=== PATIENT | female | born 1995 | race Caucasian/White ===

== ENCOUNTER 2020-06-14 14:46 | Emergency (ER) | payer OTHER, SELFPAY ==
--- NOTE | 2020-06-14 15:47 | ED_ITS ---
HPI - URI/Sore Throat General Chief Complaint: Medical Clearance Stated Complaint: sore throat Time Seen by Provider: 06/14/20 15:29 Source: patient Mode of arrival: ambulatory Limitations: no limitations History of Present Illness HPI Narrative: Sore throat day MD elicited complaint: nasal congestion Relieving factors: NSAID, lozenge and gargling Related Data Previous Rx's Medication Instructions Recorded azithromycin [Zithromax Z-Trevor] 250 mg PO DAILY 5 Days #5 tab 06/14/20 Allergies Allergy/AdvReac Type Severity Reaction Status Date / Time amoxicillin [AMOXICILLIN] Allergy Unknown UNKNOWN Unverified 05/28/20 18:48 Review of Systems Review of Systems: Constitutional: No Weight loss, No Fever, No Chills, No Night Sweats, No Fatigue, No Malaise ENT/Mouth: No Hearing loss, No Ear Pain, + Nasal Congestion, No Sinus Pain, No Hoarseness, + sore throat, + Rhinorrhea, No Swallowing Difficulty Eyes: No Eye Pain, No Swelling, No Redness, No Foreign Body, No Discharge, No Vision Changes Cardiovascular: No Chest Pain, No SOB, No Dyspnea on Exertion, No Orthopnea, No Edema, No Palpitations Respiratory: No Cough, No Sputum, No Wheezing, No Smoke Exposure, No Dyspnea Gastrointestinal: No Nausea, No Vomiting, No Diarrhea, No Constipation, No abdominal Pain, No Hematochezia, No Melena Genitourinary: no irregular bleeding, No Dysuria, No Urinary Frequency, No Hemat uria, No Urinary Incontinence, No Urgency, No Flank Pain, No Urinary Flow Changes, No Hesitancy Musculoskeletal: No joint pain, No Myalgias, No Joint Swelling Skin: No Skin Lesions, No rash Neuro: No Weakness, No Numbness, No Paresthesias, No Loss of Consciousness, No Dizziness, No Headache Psych: No Anxiety/Panic, No Depression, No SI/HI/AH/VH, No Social Issues, Heme/Lymph: No Bruising, No Bleeding,No Lymphadenopathy Endocrine: No Polyuria, No Polydipsia, No Temperature Intolerance Yes all other systems are reviewed and are negative [facility] Past Medical History Medical History (Updated 06/14/20 @ 15:54 by Shana Amaro) Anemia Anxiety HTN (hypertension) Social History Social History Advance Directives: No Advance Directives Information Provided: No Physical Exam Const: General: cooperative and healthy appearing; No acute distress or intoxicated appearing Nutritional Appearance: average body habitus Orientation/consciousness: patient oriented x3 HENMT: Head: Yes normal to inspection Ears: hearing grossly normal bilaterally Mouth: no drooling and malodorous breath Throat: No peritonsillar mass, Yes posterior oropharynx abnormal ( erythema diffuse, exudate. no evidence of GATE MANAGER, tonsils 2+), Yes postnasal drainage and No uvular edema Eyes: General: appearance normal, both eyes and all related structures Visual Andrade: normal visual andrade by confrontation Neck: Neck: Yes normal visual inspection, No positive Brudzinski's sign, No positive Kernig's sign and No tender Thyroid: Thyroid normal Chest: Chest palpation & inspection: normal inspection of the chest Resp: Effort & Inspection: normal respiratory effort Cardio: Jugular venous distension: no JVD GI: Inspection: Yes normal to inspection Percussion: Yes normal to percussion Auscultation: normal bowel sounds : General: Yes no CVA tenderness Back/Spine/Pelvis: Back: no CVA tenderness Skin: General skin exam: no rashes or lesions noted Neuro: General: patient oriented x3 Course Course Hospital Course: exam consistent with pharyngitis will treat empirically for strep. Allergy to penicillin. Will also test for COVID-19 per request. Stable for discharge. MDM - URI/Sore Throat Differential Diagnosis Differential diagnosis: Likely upper respiratory infection, viral infection and pharyngitis; Unlikely croup, otitis media, sinusitis, bronchitis and influenza Discharge Plan Discharge Clinical Impression: Pharyngitis Qualifiers: Pharyngitis/tonsillitis etiology: streptococcus Qualified Code(s): J02.0 - Streptococcal pharyngitis Patient Disposition: Home, Self-Care Instructions: Pharyngitis (ED) Additional Instructions: Based on your symptoms and history we have sent a COVID-19. Although your RESULT IS PENDING at this time. RESULTS should return within 72 hours. At this time you will be contacted with either NEGATIVE OR POSITIVE results. -Please wait until we contact you for your results. At this time you will be okay for discharge. Please plan for self quarantine for up to 14 days. Do not expose yourself to others. You may not go to work. If testing does come back negative you may return to activities as long as you are no longer having any symptoms for at least 3 days. Please continue to follow cold instructions and wash your hands frequently. You may take Tylenol as directed on the bottle for pain or fever. Patient seen in the emergency department on 03/06/2020 and should be excused from work until negative test results AND until 72 hours without any symptoms AND at least 10 days have passed since symptoms first appeared or since last exposure to COVID-19 positive patient CDC Guidelines for home isolation: - Stay away from others - WEAR A MASK if you are sick AND STAY HOME - Cover your mouth and nose with a tissue when you cough or sneeze. Dispose of tissues in a lined trash can and wash your hands immediately with soap and water for at least 20 seconds. If soap and water are not available, clean hands with alcohol-based hand applications development analyst that contains at least 60% alcohol. - Clean your hands often with soap and water for at least 20 seconds - Avoid touching your eyes, nose and mouth with unwashed hands - Do not share dishes, drinking glasses, cups, eating utensils, towels, or bedding with other people in your home. After using these items, wash them thoroughly with soap and water or put in the vocational psychologist. - Clean high-touch surfaces in your isolation area ( sick room and bathroom) every day; let a caregiver clean and disinfect high-touch surfaces in other areas of the home. Clean the area or item with soap and water or another detergent if it is dirty. Then, use a household disinfectant. - Limit contact with pets and animals: If you must care for a pet, wash your mullins nds before and after interacting with them Prescriptions: New azithromycin [Zithromax Z-Trevor] 250 mg tablet 250 mg PO DAILY 5 Days Qty: 5 RF: 0
[2020-06-14 15:52] VITALS: BP 175/100; PULSE 95; RESP 18; TEMP 38.3; O2SAT 100; BMI 31.9
== END 2020-06-14 16:41 | disposition home or self-care (01) ==
PROVIDERS: Nurse Practitioner Primary Care; Emergency Provider Emergency Medicine
DX: J02.0 Streptococcal pharyngitis (principal); Z20.828 Contact with and (suspected) exposure to other viral communicable diseases; I10 Essential (primary) hypertension
CPT/HCPCS: 36415; 87635; 99283; 99284

== ENCOUNTER 2020-08-15 14:10 | Emergency (ER) | payer OTHER, SELFPAY ==
[2020-08-15 14:30] VITALS: BP 163/87; PULSE 90; RESP 18; TEMP 36.6; O2SAT 98; BMI 34.9
--- NOTE | 2020-08-15 15:54 | ED_ITS ---
HPI - Eye Problem General Chief complaint: Eye Problems Stated complaint: Swollen right eye Time Seen by Provider: 08/15/20 15:04 Source: patient Mode of arrival: ambulatory Limitations: no limitations History of Present Illness HPI Narrative: 25-year-old female presenting to the ED with complaints of swollen eyelids worse on the right than the left with itching and yellow drainage since . Denies any other symptoms complaints or concerns at this time. Reports that she does not wear contact lenses. Denies injury or trauma to the eyes. Reports that she did not get anything into the eye. No chemical/UV exposure. Did not occur while hammering or grinding. Related Data Previous Rx's Medication Instructions Recorded azithromycin [Zithromax Z-Trevor] 250 mg PO DAILY 5 Days #5 tab 06/14/20 clindamycin HCl 300 mg PO TID 10 Days #30 cap 08/15/20 erythromycin 0.5 inch OPHTHALMIC (EYE) TID #3.5 08/15/20 g ibuprofen 800 mg PO Q8H PRN #14 tab 08/15/20 oxycodone-acetaminophen [Percocet] 1 tab PO Q6H PRN #10 tab 08/15/20 Allergies Allergy/AdvReac Type Severity Reaction Status Date / Time amoxicillin [AMOXICILLIN] Allergy Unknown UNKNOWN Verified 08/15/20 14:28 Review of Systems Review of Systems: Constitutional : No Fever, No Chills ENT/Mouth : No Ear Pain, No Nasal Congestion, No Sinus Pain, No Hoarseness, No sore throat, No Rhinorrhea Eyes: No Eye Pain, + eyelid Swelling, + Redness, No Foreign Body, + Discharge, No Vision Changes Respiratory : No Cough, No Sputum Musculoskeletal : No joint pain, No Myalgias, No Joint Swelling Skin : No Skin Lesions, No rash Yes all other systems are reviewed and are negative PMFSH Past Medical History Attestation statement: The following information was validated with the patient. Medical History Anemia Anxiety HTN (hypertension) Social History Social History Alcohol intake: never Advance Directives: No Advance Directives Information Provided: No Physical Exam Vital Signs: Vital Signs: Last Vital Signs Temp 97.8 F 08/15/20 14:30 Pulse 90 08/15/20 14:30 Resp 18 08/15/20 14:30 BP 163/87 H 08/15/20 14:30 Pulse Ox 98 08/15/20 14:30 Body Mass Index 34.9 vital signs have been reviewed as normal and appeared to be correct. Blood pressure normal. Heart rate normal. Respiration rate normal. Temperature normal. Oxygen saturation normal. Appearance: Alert. Oriented X3. No acute distress. Head: Normal external exam. Normocephalic. Atraumatic. No Dumas signs noted. No raccoon eyes noted Eyes: PERRLA. EOMI. Conjunctiva are normal. Cornea are normal. Funduscopic exam within normal limits. Sclera normal. Right eyelid erythematous with mild soft tissue swelling with crusting noted c/w blepharitis/preseptal cellulitis not consistent with orbital cellulitis. No papilledema noted. Anterior chamber normal. No photophobia noted. Visual Acuity in nurse's note. ENT: EAC normal. TM's Normal. Pharynx normal. Uvula midline. Moist mucous membranes. Neck: Normal inspection. Neck supple. FROM. No adenopathy. No meningeal signs. CVS: Normal heart rate and rhythm. Heart sound normal. No murmurs noted. Pulses normal throughout. Respiratory: No respiratory distress. Painless inspiration. Breath sounds normal. Back: Full range of motion noted. Skin: Skin warm and dry. Normal skin color. Normal skin turgor. No rashes/lesions/lacerations noted. Extremities: Extremities exhibit normal range of motion. Extremities nontender. Neuro: Oriented X 3. No motor deficit. No sensory deficit. Reflexes normal. Course Course Course Narrative: Patient with periorbital/blepharitis not consistent with orbital cellulitis. Will DC home with erythromycin and clindamycin as patient is allergic to penicillins and symptomatic treatment along with referral to Ophthalmology and to return if any new or worsening symptoms. Patient understands agrees with this plan MDM - Eye Problem Medical Records Attestation: I reviewed the patient's medical records. Discharge Plan Discharge Clinical Impression: Periorbital cellulitis Qualifiers: Laterality: right Qualified Code(s): L03.213 - Periorbital cellulitis Blepharitis Qualifiers: Blepharitis type: unspecified type Laterality: right Eyelid: upper Qualified Code(s): H01.001 - Unspecified blepharitis right upper eyelid Patient Disposition: Home, Self-Care Instructions: Blepharitis (ED), Periorbital Cellulitis in Adults (ED) Prescriptions: New erythromycin 5 mg/gram (0.5 %) ointment 0.5 inch ophthalmic (eye) TID Qty: 3.5 RF: 0 clindamycin HCl 300 mg capsule 300 mg PO TID 10 Days Qty: 30 RF: 0 ibuprofen 800 mg tablet 800 mg PO Q8H PRN (Reason: pain) Qty: 14 RF: 0 oxycodone-acetaminophen [Percocet] 5-325 mg tablet 1 tab PO Q6H PRN (Reason: pain) Qty: 10 RF: 0 No Action azithromycin [Zithromax Z-Trevor] 250 mg tablet 250 mg PO DAILY 5 Days Qty: 5 RF: 0 Referrals: Emeterio Raygoza [Physician] - 2 days Physician,Unknown [Primary Care Provider] - 2 days Stand Alone Forms: Work/School Release Print Language: [place]
== END 2020-08-15 17:11 | disposition home or self-care (01) ==
PROVIDERS: Emergency Provider Emergency Medicine Emergency Medical Services
DX: L03.213 Periorbital cellulitis (principal); H01.001 Unspecified blepharitis right upper eyelid; I10 Essential (primary) hypertension
CPT/HCPCS: 99283

== ENCOUNTER 2020-09-06 19:15 | Emergency (ER) | payer OTHER, SELFPAY ==
--- NOTE | 2020-09-06 | ECG_ITS ---
Test Reason : HYPERTENSION Blood Pressure : / mmHG Vent. Rate : 084 BPM Atrial Rate : 084 BPM P-R Int : 138 ms QRS Dur : 102 ms QT Int : 356 ms P-R-T Axes : 027 031 012 degrees QTc Int : 420 ms Normal sinus rhythm Voltage criteria for left ventricular hypertrophy (could be a normal variant) Abnormal ECG When compared with ECG of 27-SEP-2019 09:00, No significant change was found Referred By: Generic ED Physician Electronically Signed By:RINA BROWN
[2020-09-06 19:32] VITALS: BP 172/102; BP 173/101; PULSE 87; PULSE 95; RESP 20; TEMP 37.2; O2SAT 98; BMI 33.0
--- NOTE | 2020-09-06 19:40 | XR_ITS ---
EXAMINATION: XR CHEST CLINICAL INFORMATION: Chest pain COMPARISON: 09/27/2019 TECHNIQUE: Frontal view of the chest was obtained. FINDINGS: No significant abnormality is noted involving the heart, lungs, mediastinum, bony thorax or soft tissues. XR/XR chest 1V IMPRESSION: No evidence of acute process.
--- NOTE | 2020-09-06 19:40 | ECG_ITS ---
Test Reason : REPEAT Blood Pressure : / mmHG Vent. Rate : 085 BPM Atrial Rate : 085 BPM P-R Int : 144 ms QRS Dur : 106 ms QT Int : 370 ms P-R-T Axes : 027 031 008 degrees QTc Int : 440 ms Normal sinus rhythm Voltage criteria for left ventricular hypertrophy Abnormal ECG When compared with ECG of 06-SEP-2020 19:36, No significant change was found Referred By: Abdulaziz Oswald Electronically Signed By:RINA BROWN
[2020-09-06 19:59] VITALS: BP 160/95; PULSE 97
[2020-09-06 19:59] LABS: MANUAL DIFF FLAG NO
[2020-09-06 20:00] VITALS: BP 176/112; PULSE 91
[2020-09-06 20:02] VITALS: BP 155/95; PULSE 97
[2020-09-06 20:13] LABS: Basophils Absolute Auto 0.1 X10*3/uL (0.0-0.2); Basophils Percent Auto 0.5 % (0-2); Eosinophils Absolute Auto 0.1 X10*3/uL (0.0-0.4); Eosinophils Percent Auto 0.5 % (0-4); Hematocrit 41.2 % (37-47); Hemoglobin 12.6 g/dl (12.0-16.0); Imm Gran Abs Auto 0.06 X10*3/uL (0.00-0.03); Imm Gran Pct Auto 0.5 % (0.0-0.4); Lymphocytes Absolute Auto 2.3 X10*3/uL (1.2-4.9); Lymphocytes Percent Auto 18.9 % (20-40); Mean Corpuscular HGB Conc 30.6 g/dl (31.0-35.0); Mean Corpuscular Hemoglobin 22.7 pg (27.0-33.0); Mean Corpuscular Volume 74.4 fL (80-98); Mean Platelet Volume 11.1 fL (9.4-12.3); Monocytes Absolute Auto 0.5 X10*3/uL (0.1-1.2); Monocytes Percent Auto 3.8 % (2-11); Neutrophils Absolute Auto 9.3 X10*3/uL (2.0-8.3); Neutrophils Percent Auto 75.8 % (45-73); Platelet Count 340 X10*3/uL (160-400); Red Blood Count 5.54 X10*6/uL (4.20-5.50); Red Cell Distribution Width 16.4 % (11.0-16.0); White Blood Count 12.2 X10*3/uL (4.8-10.8)
--- NOTE | 2020-09-06 20:21 | ED.GENADULT ---
HPI - General Adult General Chief complaint: General Medical Stated complaint: dizness Time Seen by Provider: 09/06/20 19:39 Source: patient Mode of arrival: ambulatory Limitations: no limitations History of Present Illness HPI narrative: This is a 25-year-old female with past medical history that is significant for anxiety disorder, depression, iron deficiency anemia, hypertension for which she is taking propranolol and amlodipine who reports that she has been having some increased social stressors with her family wanted her to move to [place]. States she has been very stressed out due to this has had increased and her anxiety and has been having panic attacks yesterday she had a near syncopal episode today she is having continued feeling of anxiety and chest pain substernally, headache. Yesterday she did not fall or strike her head. There is no recent illness. No lower extremity swelling, shortness of breath. Onset (ago): day(s) Severity: moderate Relieving factors: none Treatments prior to arrival: none Related Data Previous Rx's Medication Instructions Recorded azithromycin [Zithromax Z-Trevor] 250 mg PO DAILY 5 Days #5 tab 06/14/20 clindamycin HCl 300 mg PO TID 10 Days #30 cap 08/15/20 erythromycin 0.5 inch OPHTHALMIC (EYE) TID #3.5 08/15/20 g ibuprofen 800 mg PO Q8H PRN #14 tab 08/15/20 oxycodone-acetaminophen [Percocet] 1 tab PO Q6H PRN #10 tab 08/15/20 Allergies Allergy/AdvReac Type Severity Reaction Status Date / Time amoxicillin [AMOXICILLIN] Allergy Unknown UNKNOWN Verified 08/15/20 14:28 Review of Systems Review of Systems: Constitutional: No Weight loss, No Fever, No Chills, No Night Sweats, No Fatigue, No Malaise ENT/Mouth: No Hearing loss, No Ear Pain, No Nasal Congestion, No Sinus Pain, No Hoarseness, No sore throat, No Rhinorrhea, No Swallowing Difficulty Eyes: No Eye Pain, No Swelling, No Redness, No Foreign Body, No Discharge, No Vision Changes Cardiovascular: + Chest Pain, No SOB, No Dyspnea on Exertion, No Orthopnea, No Edema, No Palpitations Respiratory: No Cough, No Sputum, No Wheezing, No Smoke Exposure, No Dyspnea Gastrointestinal: No Nausea, No Vomiting, No Diarrhea, No Constipation, No abdominal Pain, No Hematochezia, No Melena Genitourinary: no irregular bleeding, No Dysuria, No Urinary Frequency, No Hematuria, No Urinary Incontinence, No Urgency, No Flank Pain Musculoskeletal: No joint pain, No Myalgias, No Joint Swelling Skin: No Skin Lesions, No rash Neuro: No Weakness, No Numbness, No Paresthesias, No Loss of Consciousness, No Dizziness, + Headache Psych: + Anxiety/Panic as noted in HPI , No Depression, No SI/HI/AH/VH Heme/Lymph: No Bruising, No Bleeding,No Lymphadenopathy Endocrine: No Polyuria, No Polydipsia, No Temperature Intolerance Yes all other systems are reviewed and are negative [facility] Past Medical History Medical History Anemia Anxiety HTN (hypertension) Social History Social History Alcohol intake: never Smoked in Last 30 Days: No Use of substances other than those prescribed or required for medical reasons: No Advance Directives: No Physical Exam Vital Signs: Vital Signs: Last Vital Signs Temp 99.0 F 09/06/20 19:32 Pulse 87 09/06/20 22:03 Resp 16 09/06/20 22:03 BP 168/106 H 09/06/20 22:03 Pulse Ox 98 09/06/20 22:03 Body Mass Index 33.0 Reviewed Const: Other: Very forthcoming and started to be tearful while she was terminal story and crying. Nutritional Appearance: average body habitus Orientation/consciousness: patient oriented x3 HENMT: Head: Yes normal to inspection Ears: hearing grossly normal bilaterally Eyes: General: appearance normal, both eyes and all related structures Visual Andrade: normal visual andrade by confrontation Neck: Neck: Yes normal visual inspection and No tender Thyroid: Thyroid normal Chest: Chest palpation & inspection: normal inspection of the chest Resp: Effort & Inspection: normal respiratory effort Auscultation: clear to auscultation bilaterally Cardio: Jugular venous distension: no JVD Rhythm: regular rhythm Heart sounds: S1 normal heart sound present and S2 normal heart sound present GI: Inspection: Yes normal to inspection Percussion: Yes normal to percussion Auscultation: normal bowel sounds : General: Yes no CVA tenderness Back/Spine/Pelvis: Back: no CVA tenderness Skin: General skin exam: no rashes or lesions noted Neuro: General: patient oriented x3 Extrem: General: Yes normal to inspection Course Course Course Narrative: Labs essentially unremarkable. BP much improved after Ativan she feels much more relaxed no pain or discomfort. Stress relieving techniques, medication adherence, balanced diet and sleep cycle reviewed in detail. I did give her some handouts regarding yoga and such. At this time offers no other complaints. No SI or HI. Stable for discharge. Medical Decision Making MDM Narrative Medical decision making narrative: In review 25-year-old female with history of hypertension, anxiety disorder, depression, chronic anemia presenting with near syncope and chest pain in the setting of anxiety attacks/increase social stressors. Very tearful during exam. No complaints of SI or HI. EKG upon arrival shows normal sinus rhythm rate 85, LVH blood pressure elevated though she is tearful. Will check labs, EKG compared to previous without any significant change. Will treat her with 1 dose of IV Ativan and re-evaluate. Medical Records Medical records reviewed: Yes I reviewed the patient's medical records. Medical records narrative: Previous EKG reviewed Lab Data Result diagrams: 09/06/20 19:51 09/06/20 19:51 Labs: Lab Results 09/06/20 09/06/20 09/06/20 Range/Units 19:47 19:51 19:51 WBC 12.2 H (4.8-10.8) X10*3/uL RBC 5.54 H (4.20-5.50) X10*6/uL Hgb 12.6 (12.0-16.0) g/dl Hct 41.2 (37-47) % MCV 74.4 L (80-98) fL MCH 22.7 L (27.0-33.0) pg MCHC 30.6 L (31.0-35.0) g/dl RDW 16.4 H (11.0-16.0) % Plt Count 340 (160-400) X10*3/uL MPV 11.1 (9.4-12.3) fL Immature Gran % (Auto) 0.5 H (0.0-0.4) % Neut % (Auto) 75.8 H (45-73) % Lymph % (Auto) 18.9 L (20-40) % Greene % (Auto) 3.8 (2-11) % Eos % (Auto) 0.5 (0-4) % Baso % (Auto) 0.5 (0-2) % Lymph # (Auto) 2.3 (1.2-4.9) X10*3/uL Greene # (Auto) 0.5 (0.1-1.2) X10*3/uL Eos # (Auto) 0.1 (0.0-0.4) X10*3/uL Baso # (Auto) 0.1 (0.0-0.2) X10*3/uL Abs Immat Gran (auto) 0.06 H (0.00-0.03) X10*3/uL Absolute Neuts (auto) 9.3 H (2.0-8.3) X10*3/uL Absolute Nucleated RBC 0.000 (0.0-0.012) X10*3/uL Nucleated RBC % (auto) 0.0 (0.0-0.2) /100WBC D-Dimer NG/ML Sodium 140 (135-145) mmol/L Potassium 4.0 (3.3-5.1) mmol/l Chloride 105 (96-108) mmol/L Carbon Dioxide 24 (22-29) mmol/L Anion Gap 15 (12-20) BUN 8 L (9-16) mg/dL Creatinine 0.81 (0.5-1.4) mg/dL Estim Creat Clear Calc 96.3 Estimated GFR > 60 Random Glucose 104 (60-115) mg/dL Calcium 9.2 (8.4-10.2) mg/dL Total Bilirubin 0.4 (0.0-1.0) mg/dL AST 21 (5-31) U/L ALT 25 (0-31) U/L Alkaline Phosphatase 88 (39-117) U/L Troponin I High Sens 3.8 (<3.5-17.0) ng/L Total Protein 8.1 H (6.5-8.0) g/dL Albumin 4.9 (3.5-5.0) g/dL TSH (0.32-4.0) uIU/mL Urine Color Urine Appearance Urine pH (5.0-8.0) Ur Specific [place] (1.005-1.025) Urine Protein (NEG-TRACE) MG/DL Urine Glucose (UA) (NEG) MG/DL Urine Ketones (NEG) MG/DL Urine Blood (NEG) Urine Nitrite (NEG) Ur Leukocyte Esterase (NEG) Urine RBC (0) /HPF Urine WBC (0-4) /HPF Ur Squamous Epith Cells /LPF Urine Bacteria /LPF Urine Mucus /LPF Urine Test (NEGATIVE) Urine Opiates Screen (Not Detect) Ur Barbiturates Screen (Not Detect) Ur Phencyclidine Scrn (Not Detect) Ur Amphetamines Screen (Not Detect) U Benzodiazepines Scrn (Not Detect) Urine Cocaine Screen (Not Detect) U Marijuana (THC) Screen (Not Detect) Coronavirus (PCR) (Negative) Influenza Type A (PCR) (Negative) Influenza Type B (PCR) (Negative) RSV RNA Qual (PCR) (Negative) 09/06/20 09/06/20 09/06/20 Range/Units 19:51 20:10 20:10 WBC (4.8-10.8) X10*3/uL RBC (4.20-5.50) X10*6/uL Hgb (12.0-16.0) g/dl Hct (37-47) % MCV (80-98) fL MCH (27.0-33.0) pg MCHC (31.0-35.0) g/dl RDW (11.0-16.0) % Plt Count (160-400) X10*3/uL MPV (9.4-12.3) fL Immature Gran % (Auto) (0.0-0.4) % Neut % (Auto) (45-73) % Lymph % (Auto) (20-40) % Greene % (Auto) (2-11) % Eos % (Auto) (0-4) % Baso % (Auto) (0-2) % Lymph # (Auto) (1.2-4.9) X10*3/uL [place] # (Auto) (0.1-1.2) X10*3/uL Eos # (Auto) (0.0-0.4) X10*3/uL Baso # (Auto) (0.0-0.2) X10*3/uL Abs Immat Gran (auto) (0.00-0.03) X10*3/uL Absolute Neuts (auto) (2.0-8.3) X10*3/uL Absolute Nucleated RBC (0.0-0.012) X10*3/uL Nucleated RBC % (auto) (0.0-0.2) /100WBC D-Dimer 209 NG/ML Sodium (135-145) mmol/L Potassium (3.3-5.1) mmol/l Chloride (96-108) mmol/L Carbon Dioxide (22-29) mmol/L Anion Gap (12-20) BUN (9-16) mg/dL Creatinine (0.5-1.4) mg/dL Estim Creat Clear Calc Estimated GFR Random Glucose (60-115) mg/dL Calcium (8.4-10.2) mg/dL Total Bilirubin (0.0-1.0) mg/dL AST (5-31) U/L ALT (0-31) U/L Alkaline Phosphatase (39-117) U/L Troponin I High Sens (<3.5-17.0) ng/L Total Protein (6.5-8.0) g/dL Albumin (3.5-5.0) g/dL TSH 0.69 (0.32-4.0) uIU/mL Urine Color Urine Appearance Urine pH (5.0-8.0) Ur Specific [place] (1.005-1.025) Urine Protein (NEG-TRACE) MG/DL Urine Glucose (UA) (NEG) MG/DL Urine Ketones (NEG) MG/DL Urine Blood (NEG) Urine Nitrite (NEG) Ur Leukocyte Esterase (NEG) Urine RBC (0) /HPF Urine WBC (0-4) /HPF Ur Squamous Epith Cells /LPF Urine Bacteria /LPF Urine Mucus /LPF Urine Test (NEGATIVE) Urine Opiates Screen (Not Detect) Ur Barbiturates Screen (Not Detect) Ur Phencyclidine Scrn (Not Detect) Ur Amphetamines Screen (Not Detect) U Benzodiazepines Scrn (Not Detect) Urine Cocaine Screen (Not Detect) U Marijuana (THC) Screen (Not Detect) Coronavirus (PCR) NEGATIVE (Negative) Influenza Type A (PCR) NEGATIVE (Negative) Influenza Type B (PCR) NEGATIVE (Negative) RSV RNA Qual (PCR) NEGATIVE (Negative) 09/06/20 09/06/20 Range/Units 20:38 20:38 WBC (4.8-10.8) X10*3/uL RBC (4.20-5.50) X10*6/uL Hgb (12.0-16.0) g/dl Hct (37-47) % MCV (80-98) fL MCH (27.0-33.0) pg MCHC (31.0-35.0) g/dl RDW (11.0-16.0) % Plt Count (160-400) X10*3/uL MPV (9.4-12.3) fL Immature Gran % (Auto) (0.0-0.4) % Neut % (Auto) (45-73) % Lymph % (Auto) (20-40) % Greene % (Auto) (2-11) % Eos % (Auto) (0-4) % Baso % (Auto) (0-2) % Lymph # (Auto) (1.2-4.9) X10*3/uL [place] # (Auto) (0.1-1.2) X10*3/uL Eos # (Auto) (0.0-0.4) X10*3/uL Baso # (Auto) (0.0-0.2) X10*3/uL Abs Immat Gran (auto) (0.00-0.03) X10*3/uL Absolute Neuts (auto) (2.0-8.3) X10*3/uL Absolute Nucleated RBC (0.0-0.012) X10*3/uL Nucleated RBC % (auto) (0.0-0.2) /100WBC D-Dimer NG/ML Sodium (135-145) mmol/L Potassium (3.3-5.1) mmol/l Chloride (96-108) mmol/L Carbon Dioxide (22-29) mmol/L Anion Gap (12-20) BUN (9-16) mg/dL Creatinine (0.5-1.4) mg/dL Estim Creat Clear Calc Estimated GFR Random Glucose (60-115) mg/dL Calcium (8.4-10.2) mg/dL Total Bilirubin (0.0-1.0) mg/dL AST (5-31) U/L ALT (0-31) U/L Alkaline Phosphatase (39-117) U/L Troponin I High Sens (<3.5-17.0) ng/L Total Protein (6.5-8.0) g/dL Albumin (3.5-5.0) g/dL TSH (0.32-4.0) uIU/mL Urine Color YELLOW Urine Appearance HAZY Urine pH 6.5 (5.0-8.0) Ur Specific [place] 1.020 (1.005-1.025) Urine Protein TRACE (NEG-TRACE) MG/DL Urine Glucose (UA) NEG (NEG) MG/DL Urine Ketones NEG (NEG) MG/DL Urine Blood NEG (NEG) Urine Nitrite NEG (NEG) Ur Leukocyte Esterase 2+ H (NEG) Urine RBC 1-4 (0) /HPF Urine WBC 15-29 H (0-4) /HPF Ur Squamous Epith Cells 2+ /LPF Urine Bacteria 2+ /LPF Urine Mucus 2+ /LPF Urine Test NEGATIVE (NEGATIVE) Urine Opiates Screen Not Detected (Not Detect) Ur Barbiturates Screen Not Detected (Not Detect) Ur Phencyclidine Scrn Not Detected (Not Detect) Ur Amphetamines Screen Not Detected (Not Detect) U Benzodiazepines Scrn Not Detected (Not Detect) Urine Cocaine Screen Not Detected (Not Detect) U Marijuana (THC) Screen Not Detected (Not Detect) Coronavirus (PCR) (Negative) Influenza Type A (PCR) (Negative) Influenza Type B (PCR) (Negative) RSV RNA Qual (PCR) (Negative) ECG Data Interpretation: Normal sinus rhythm rate 85 LVH No significant change from September 2019. Discharge Plan Discharge Clinical Impression: Anxiety disorder, Atypical chest pain Patient Disposition: Home, Self-Care Instructions: Anxiety (ED), Noncardiac Chest Pain (ED) Additional Instructions: Well-balanced diet Drink plenty of fluids Taking medication prescribed Follow up with her primary care doctor as discussed Return if any concerns or worsening symptoms Thank you Prescriptions: No Action azithromycin [Zithromax Z-Trevor] 250 mg tablet 250 mg PO DAILY 5 Days Qty: 5 RF: 0 erythromycin 5 mg/gram (0.5 %) ointment 0.5 inch ophthalmic (eye) TID Qty: 3.5 RF: 0 clindamycin HCl 300 mg capsule 300 mg PO TID 10 Days Qty: 30 RF: 0 ibuprofen 800 mg tablet 800 mg PO Q8H PRN (Reason: pain) Qty: 14 RF: 0 oxycodone-acetaminophen [Percocet] 5-325 mg tablet 1 tab PO Q6H PRN (Reason: pain) Qty: 10 RF: 0 Referrals: Physician,Unknown [Primary Care Provider] - 1 week (Primary care doctor)
[2020-09-06 20:28] LABS: Alanine Aminotransferase 25 U/L (0-31); Albumin Level 4.9 g/dL (3.5-5.0); Alkaline Phosphatase 88 U/L (39-117); Anion Gap 15 (12-20); Aspartate Amino Transferase 21 U/L (5-31); Bilirubin Total 0.4 mg/dL (0.0-1.0); Blood Urea Nitrogen 8 mg/dL (9-16); Calcium 9.2 mg/dL (8.4-10.2); Carbon Dioxide 24 mmol/L (22-29); Chloride 105 mmol/L (96-108); Creatinine Clr Calc Pharmacy 96.3; Estimated Glomerular Filt Rate > 60; Glucose Random 104 mg/dL (60-115); Sodium 140 mmol/L (135-145); Total Protein 8.1 g/dL (6.5-8.0)
[2020-09-06 20:33] LABS: Troponin-I High Sensitivity 3.8 ng/L (<3.5-17.0)
[2020-09-06 20:43] VITALS: BP 161/89; PULSE 88; RESP 20; O2SAT 99
[2020-09-06] MEDS: LORazepam 2 MG/ML VIAL 1 MG IVPUSH (20:43)
[2020-09-06 20:46] LABS: D Dimer 209 NG/ML
[2020-09-06 20:59] LABS: Glucose Urine UA NEG (NEG); Leukocyte Esterase Urine 2+ (NEG); Nitrite Urine NEG (NEG); PH 6.5 (5.0-8.0); Urine Blood NEG (NEG); Urine Ketones NEG (NEG); Urine Protein TRACE MG/DL (NEG-TRACE)
[2020-09-06 21:04] LABS: Appearance Urine HAZY; Color Urine YELLOW
[2020-09-06 21:09] LABS: Thyroid Stimulating Hormone 0.69 uIU/mL (0.32-4.0)
[2020-09-06 21:14] LABS: Amphetamine Screen Urine Not Detected (Not Detect); Barbiturates, Urine Not Detected (Not Detect); Benzodiazepines Screen Urine Not Detected (Not Detect); Cannabinoid Screen Urine Not Detected (Not Detect); Cocaine Screen Urine Not Detected (Not Detect); Opiate Screen Urine Not Detected (Not Detect); Phencyclidine Screen Urine Not Detected (Not Detect)
[2020-09-06 21:18] LABS: Bacteria Urine 2+ /LPF; Mucus Urine 2+ /LPF; Squamous Epithelial Cell Urine 2+ /LPF
[2020-09-06 21:19] LABS: UPreg QC Valid YES; Urine Pregnancy NEGATIVE (NEGATIVE)
[2020-09-06 21:24] LABS: Influenza A PCR NEGATIVE (Negative); Influenza B PCR NEGATIVE (Negative); Resp Syncy Virus RNA Qual PCR NEGATIVE (Negative); SARS COV2 PCR INHOUSE NEGATIVE (Negative)
[2020-09-06 22:03] VITALS: BP 168/106; PULSE 87; RESP 16; O2SAT 98
--- NOTE | 2020-09-06 22:04 | PC.NURSE ---
Pt sleeping at this time. No apparent distress at this time. Pt sinus on tele, provider aware of vs.
== END 2020-09-06 22:30 | disposition home or self-care (01) ==
PROVIDERS: Nurse Practitioner Primary Care; Emergency Provider Emergency Medicine
DX: F41.1 Generalized anxiety disorder (principal); F43.0 Acute stress reaction; R07.89 Other chest pain; R42 Dizziness and giddiness; Z20.828 Contact with and (suspected) exposure to other viral communicable diseases; Z79.899 Other long term (current) drug therapy; Z73.3 Stress, not elsewhere classified; Z63.79 Other stressful life events affecting family and household
CPT/HCPCS: 0241U; 36415; 71045; 80053; 80307; 81001; 81025; 84443; 84484; 85025; 85379; 87086; 93005; 96361; 96374; 99284; J2060

== ENCOUNTER 2020-10-31 16:41 | Emergency (ER) | payer OTHER, SELFPAY ==
[2020-10-31 16:46] VITALS: BP 179/102; PULSE 93; RESP 18; TEMP 37.2; O2SAT 99; BMI 34.7
--- NOTE | 2020-10-31 17:20 | ED.GENADULT ---
HPI - General Adult General Chief complaint: General Medical Stated complaint: headache, chest pressure Time Seen by Provider: 10/31/20 17:20 Source: patient Mode of arrival: ambulatory Limitations: no limitations History of Present Illness HPI narrative: Patient history of hypertension on medication seen her PCP yesterday and started on new medication to control the blood pressure patient feels very anxious unable to sleep lately checked her blood pressure was 200 few days ago will dizzy blood pressure was 179/102 today with heart rate of 93, patient has multiple complaints including poor sleep dizziness feeling hot palpitations patient denies any shortness of breath Onset (ago): day(s) Related Data Previous Rx's Medication Instructions Recorded azithromycin [Zithromax Z-Trevor] 250 mg PO DAILY 5 Days #5 tab 06/14/20 clindamycin HCl 300 mg PO TID 10 Days #30 cap 08/15/20 erythromycin 0.5 inch OPHTHALMIC (EYE) TID #3.5 08/15/20 g ibuprofen 800 mg PO Q8H PRN #14 tab 08/15/20 oxycodone-acetaminophen [Percocet] 1 tab PO Q6H PRN #10 tab 08/15/20 lorazepam [Ativan] 0.5 mg PO BEDTIME PRN #14 tab 10/31/20 Allergies Allergy/AdvReac Type Severity Reaction Status Date / Time amoxicillin [AMOXICILLIN] Allergy Unknown UNKNOWN Verified 08/15/20 14:28 Review of Systems Review of Systems: Constitutional : No Weight loss, No Fever, No Chills ENT/Mouth : No sore throat, No Rhinorrhea Eyes: No Eye Pain, No Swelling Cardiovascular : + Chest Pain, ++ palpitations Respiratory : No Cough, No Sputum, no shortness of breath Gastrointestinal : no Nausea, No Vomiting, No Diarrhea, No abdominal Pain, no black stools Genitourinary : No Dysuria, No Urinary Frequency Musculoskeletal : No joint pain, No Myalgias, No Joint Swelling Skin : No Skin Lesions, No rash Neuro : No Weakness, No Numbness, +Dizziness, No Headache Psych : No Anxiety/Panic, No Depression Heme/Lymph: No Bruising, No Lymphadenopathy Endocrine : No Polyuria, No Polydipsia All other systems reviewed and are negative [facility] Past Medical History Medical History Anemia Anxiety HTN (hypertension) Social History Social History Alcohol intake: never Advance Directives: No Advance Directives Information Provided: Yes Physical Exam Vital Signs: Vital Signs: Last Vital Signs Temp 99.0 F 10/31/20 16:46 Pulse 93 10/31/20 16:46 Resp 18 10/31/20 16:46 BP 179/102 H 10/31/20 16:46 Pulse Ox 99 10/31/20 16:46 Body Mass Index 34.7 Appearance: Alert. Oriented X3. No acute distress. Anxious Eyes: Pupils equal, round and reactive to light. ENT: Pharynx normal. Neck: Normal inspection. Neck supple. CVS: Normal heart rate and rhythm. Pulses normal. Respiratory: No respiratory distress. Breath sounds normal. Abdomen: Soft and nontender. Bowel sounds are present, no mass palpable, no CVA tenderness Skin: Skin warm and dry. Normal skin color. Normal skin turgor. Extremities: No lower extremity edema. Neuro: Oriented X 3. No motor deficit. No sensory deficit. Medical Decision Making MDM Narrative Medical decision making narrative: Patient with multiple complaints with diagnosis of hypertension already seen by her PCP repeat blood pressure check was 160/93 with heart rate 90 beats per minute patient seems very anxious no dizziness notice in the ER. Will discharge patient home on Ativan for anxiety and will try to relax and advised to follow-up with her pcp patient advised to continue her medications as prescribed by PCP Discharge Plan Discharge Clinical Impression: Anxiety Hypertension Qualifiers: Hypertension type: essential hypertension Qualified Code(s): I10 - Essential (primary) hypertension Patient Disposition: Home, Self-Care Instructions: Hypertension (ED), Anxiety (ED) Additional Instructions: Continue taking medication for blood pressure as prescribed by PCP. Take medication to relax it will help you in controlling the blood pressure and give you sleep Contin?e tomando medicamentos para la presi?n arterial seg?n lo prescrito por [place] PCP. [place] medicamentos para relajarse, lo ayudar? a controlar la presi?n arterial y le mahsa? etienne?o. Prescriptions: New lorazepam [Ativan] 0.5 mg tablet 0.5 mg PO BEDTIME PRN (Reason: anxiety) Qty: 14 RF: 0 No Action azithromycin [Zithromax Z-Trevor] 250 mg tablet 250 mg PO DAILY 5 Days Qty: 5 RF: 0 erythromycin 5 mg/gram (0.5 %) ointment 0.5 inch ophthalmic (eye) TID Qty: 3.5 RF: 0 clindamycin HCl 300 mg capsule 300 mg PO TID 10 Days Qty: 30 RF: 0 ibuprofen 800 mg tablet 800 mg PO Q8H PRN (Reason: pain) Qty: 14 RF: 0 oxycodone-acetaminophen [Percocet] 5-325 mg tablet 1 tab PO Q6H PRN (Reason: pain) Qty: 10 RF: 0
[2020-10-31] MEDS: LORazepam 0.5 MG TABLET PO (17:42)
== END 2020-10-31 18:04 | disposition home or self-care (01) ==
PROVIDERS: Emergency Provider Internal Medicine
DX: F41.9 Anxiety disorder, unspecified (principal); I10 Essential (primary) hypertension
CPT/HCPCS: 99284

== ENCOUNTER 2021-02-02 08:54 | Emergency (ER) | payer OTHER, SELFPAY ==
--- NOTE | ~2021-02-02 | XR_ITS ---
EXAMINATION: XR CHEST CLINICAL INFORMATION: Chest pain COMPARISON: None TECHNIQUE: 2 views of the chest were obtained. FINDINGS: No significant abnormality is noted involving the heart, lungs, mediastinum, bony thorax or soft tissues. XR/XR chest 2V IMPRESSION: Unremarkable chest exam .
--- NOTE | 2021-02-02 09:10 | ECG_ITS ---
Test Reason : UPPER CHEST PAIN Blood Pressure : / mmHG Vent. Rate : 082 BPM Atrial Rate : 082 BPM P-R Int : 150 ms QRS Dur : 106 ms QT Int : 356 ms P-R-T Axes : 058 043 023 degrees QTc Int : 415 ms Normal sinus rhythm Moderate voltage criteria for LVH, may be normal variant Borderline ECG When compared with ECG of 06-SEP-2020 20:26, No significant change was found Referred By: Generic ED Physician Electronically Signed By:RINA BROWN
[2021-02-02 09:14] VITALS: BP 155/84; PULSE 85; RESP 16; TEMP 37; O2SAT 99; BMI 31.2
--- NOTE | 2021-02-02 09:38 | ED.GENADULT ---
HPI - General Adult General Chief complaint: General Medical Stated complaint: chest pain Time Seen by Provider: 02/02/21 09:36 Source: patient and hourly sign language interpreter Mode of arrival: ambulatory Limitations: language barrier History of Present Illness HPI narrative: 25-year-old female with a past medical history of diet-controlled diabetes, hypertension, anxiety here with complaints of chest discomfort with associated dizziness and shortness of breath last evening while lying down in bed. Took her blood pressure and was noted to be high. Her symptoms seem improved but she still has some slight chest discomfort this morning. Denies any anxiety or depression. No associated cough, fevers or chills or leg swelling or pain. Related Data Previous Rx's Medication Instructions Recorded azithromycin [Zithromax Z-Trevor] 250 mg PO DAILY 5 Days #5 tab 06/14/20 clindamycin HCl 300 mg PO TID 10 Days #30 cap 08/15/20 erythromycin 0.5 inch OPHTHALMIC (EYE) TID #3.5 08/15/20 g ibuprofen 800 mg PO Q8H PRN #14 tab 08/15/20 oxycodone-acetaminophen [Percocet] 1 tab PO Q6H PRN #10 tab 08/15/20 lorazepam [Ativan] 0.5 mg PO BEDTIME PRN #14 tab 10/31/20 Allergies Allergy/AdvReac Type Severity Reaction Status Date / Time amoxicillin [AMOXICILLIN] Allergy Unknown UNKNOWN Verified 08/15/20 14:28 Review of Systems Review of Systems: Yes all other systems are reviewed and are negative Constitutional: Constitutional: Reports no additional constitutional complaints, Denies body ache(s), Denies chills, Denies fever(s), Denies headache(s) and Denies weakness Eyes: Eyes: Reports no additional eye complaints and Denies change in vision ENT: Reports system reviewed and no additional complaints, except as documented, Reports dizziness, Denies headache(s), Denies nasal congestion, Denies nasal discharge and Denies neck pain Cardiovascular: Cardiovascular: Reports no additional cardiovascular complaints, Reports chest pain, Denies leg edema and Reports dyspnea Respiratory: Respiratory: Reports no additional respiratory complaints, Denies cough and Reports dyspnea Gastrointestinal: Gastrointestinal: Reports no additional gastrointestinal complaints, Denies abdominal pain, Denies diarrhea, Denies nausea and Denies vomiting Genitourinary: Genitourinary: Reports no additional female genitourinary complaints and Denies urinary incontinence Musculoskeletal: Musculoskeletal: Reports no additional musculoskeletal complaints, Denies back pain, Denies arthralgias, Denies joint swelling, Denies neck pain, Denies numbness and Denies tingling Integumentary/Breasts: Skin/Breast: Reports system reviewed and no additional complaints, except as docu and Denies rash Neurologic: Reports system reviewed and no additional complaints, except as documented, Denies Abnormal speech present, Reports dizziness, Denies headache(s), Denies numbness, Denies tingling and Denies weakness PMFSH Past Medical History Attestation statement: The following information was validated with the patient. Source: old records reviewed and nursing notes reviewed Medical History Anemia Anxiety HTN (hypertension) Social History Social History Alcohol intake: never Smoking Status: Never smoker Use of substances other than those prescribed or required for medical reasons: No Advance Directives: Yes Advance Directives Information Provided: No Advance Directives on File: No Patient : No Physical Exam Vital Signs: Vital Signs: Last Vital Signs Temp 98.6 F 02/02/21 09:14 Pulse 85 02/02/21 09:14 Resp 16 02/02/21 09:14 BP 155/84 H 02/02/21 09:14 Pulse Ox 99 02/02/21 09:14 Body Mass Index 31.2 Const: General: cooperative, healthy appearing, comfortable and no acute distress Orientation/consciousness: patient oriented x3 Limitations: no limitations HENMT: Head: Yes normal to inspection Ears: hearing grossly normal bilaterally General nose exam: Normal external nose present Face and sinus: Yes normal facial exam Mouth: Normal oral and palatal mucosa present Throat: Yes posterior oropharynx normal Eyes: General: appearance normal, both eyes and all related structures Pupils: Equal, round and reactive pupils present Neck: Neck: Yes normal visual inspection Chest: Other: Central chest tender to palpate. Worsened with movement and deep breathing Chest palpation & inspection: normal inspection of the chest Resp: Effort & Inspection: normal respiratory effort Auscultation: clear to auscultation bilaterally Cardio: Rate: regular rate Rhythm: regular rhythm Peripheral pulses: Peripheral pulses 2+ throughout GI: Inspection: Yes normal to inspection Palpation (GI): Soft to palpation and nontender Auscultation: normal bowel sounds Back/Spine/Pelvis: Thoracic/Lumbar Spine: thoracic and lumbar spine normal to inspection Skin: General skin exam: no rashes or lesions noted Neuro: General: patient oriented x3, no focal motor deficits and normal sensation to monofilament Cranial nerves: Yes Equal, round and reactive pupils present Cognition (Neuro): normal cognition Speech: No Abnormal speech present Gait exam (Neuro): Normal gait present Motor exam (neuro): 5/5 motor strength present throughout Extrem: General: Yes normal to inspection, Yes no pedal edema and Yes no calf tenderness Course Course Course Narrative: 25-year-old female here with chest discomfort with associated shortness breath and dizziness last evening which occurred at rest. Symptoms seem to be improving with exception of some mild chest discomfort which is very reproducible on exam. Hemodynamically stable. Will check EKG, chest x-ray, labs. 1120-EKG shows no ischemic changes. Chest x-ray negative. Labs unremarkable. Reviewed findings with the patient. reviewed worrisome signs/symptoms with patient and when to return to ED. Comfortable with discharge home. Medical Decision Making MDM Narrative Medical decision making narrative: Anxiety, costochondritis, pe, pna, viral syndrome. acs Less likely PE with PERC score 0. Less likely ACS with symptoms since last evening with a negative troponin and EKG which shows no ischemic changes Medical Records Medical records reviewed: Yes I reviewed the patient's medical records. Lab Data Lab results reviewed: Yes I reviewed the patient's lab results. Result diagrams: 02/02/21 10:35 02/02/21 10:35 Labs: Lab Results 02/02/21 02/02/21 02/02/21 Range/Units 10:35 10:35 10:35 WBC 8.2 (4.8-10.8) X10*3/uL RBC 4.54 (4.20-5.50) X10*6/uL Hgb 10.4 L (12.0-16.0) g/dl Hct 33.9 L (37-47) % MCV 74.7 L (80-98) fL MCH 22.9 L (27.0-33.0) pg MCHC 30.7 L (31.0-35.0) g/dl RDW 15.4 (11.0-16.0) % Plt Count 267 (160-400) X10*3/uL MPV 11.4 (9.4-12.3) fL Immature Gran % (Auto) 0.4 (0.0-0.4) % Neut % (Auto) 65.9 (45-73) % Lymph % (Auto) 23.4 (20-40) % [place] % (Auto) 8.0 (2-11) % Eos % (Auto) 1.9 (0-4) % Baso % (Auto) 0.4 (0-2) % Lymph # (Auto) 1.9 (1.2-4.9) X10*3/uL [place] # (Auto) 0.7 (0.1-1.2) X10*3/uL Eos # (Auto) 0.2 (0.0-0.4) X10*3/uL Baso # (Auto) 0.0 (0.0-0.2) X10*3/uL Abs Immat Gran (auto) 0.03 (0.00-0.03) X10*3/uL Absolute Neuts (auto) 5.4 (2.0-8.3) X10*3/uL Absolute Nucleated RBC 0.000 (0.0-0.012) X10*3/uL Nucleated RBC % (auto) 0.0 (0.0-0.2) /100WBC Hold Blue Top SEE NOTE Sodium 137 (135-145) mmol/L Potassium 4.2 (3.3-5.1) mmol/L Chloride 105 (96-108) mmol/L Carbon Dioxide 24 (22-29) mmol/L Anion Gap 12 (12-20) BUN 9 (9-16) mg/dL Creatinine 0.62 (0.5-1.4) mg/dL Estim Creat Clear Calc 122.2 Estimated GFR > 60 Random Glucose 99 (60-115) mg/dL Calcium 9.7 (8.4-10.2) mg/dL Total Bilirubin 0.5 (0.0-1.0) mg/dL Direct Bilirubin < 0.2 (0.0-0.5) mg/dL AST 26 (5-31) U/L ALT 42 H (0-31) U/L Alkaline Phosphatase 78 (39-117) U/L Troponin I High Sens (<3.5-17.0) ng/L Total Protein 7.0 (6.5-8.0) g/dL Albumin 4.2 (3.5-5.0) g/dL // Range/Units 10:35 WBC (4.8-10.8) X10*3/uL RBC (4.20-5.50) X10*6/uL Hgb (12.0-16.0) g/dl Hct (37-47) % MCV (80-98) fL MCH (27.0-33.0) pg MCHC (31.0-35.0) g/dl RDW (11.0-16.0) % Plt Count (160-400) X10*3/uL MPV (9.4-12.3) fL Immature Gran % (Auto) (0.0-0.4) % Neut % (Auto) (45-73) % Lymph % (Auto) (20-40) % [place] % (Auto) (2-11) % Eos % (Auto) (0-4) % Baso % (Auto) (0-2) % Lymph # (Auto) (1.2-4.9) X10*3/uL [place] # (Auto) (0.1-1.2) X10*3/uL Eos # (Auto) (0.0-0.4) X10*3/uL Baso # (Auto) (0.0-0.2) X10*3/uL Abs Immat Gran (auto) (0.00-0.03) X10*3/uL Absolute Neuts (auto) (2.0-8.3) X10*3/uL Absolute Nucleated RBC (0.0-0.012) X10*3/uL Nucleated RBC % (auto) (0.0-0.2) /100WBC Hold Blue Top Sodium (135-145) mmol/L Potassium (3.3-5.1) mmol/L Chloride (96-108) mmol/L Carbon Dioxide (22-29) mmol/L Anion Gap (12-20) BUN (9-16) mg/dL Creatinine (0.5-1.4) mg/dL Estim Creat Clear Calc Estimated GFR Random Glucose (60-115) mg/dL Calcium (8.4-10.2) mg/dL Total Bilirubin (0.0-1.0) mg/dL Direct Bilirubin (0.0-0.5) mg/dL AST (5-31) U/L ALT (0-31) U/L Alkaline Phosphatase (39-117) U/L Troponin I High Sens < 3.5 (<3.5-17.0) ng/L Total Protein (6.5-8.0) g/dL Albumin (3.5-5.0) g/dL Imaging Data Chest x-ray: Attestation: I personally reviewed and interpreted this imaging study as follows: Radiologist's impression: [address] [id number] ReportSigned Patient: Nicole NelsonMR#: [id number]: 1995Acct:[id number]/Sex: 25 / FADM Date: 02/02/21Loc: [facility] Dr: Ordering Physician: GRACIELA SONG NP Date of Service: 02/02/21 Procedure(s): XR chest 2V Accession Number(s): [id number] cc: GRACIELA SONG NP~ EXAMINATION: XR CHEST CLINICAL INFORMATION: Chest pain COMPARISON: None TECHNIQUE: 2 views of the chest were obtained. FINDINGS: No significant abnormality is noted involving the heart, lungs, mediastinum, bony thorax or soft tissues. XR/XR chest 2V IMPRESSION: Unremarkable chest exam . ECG Data Attestation: I personally reviewed and interpreted this ECG as follows: Interpretation: Normal sinus rhythm with a rate of 82, normal MD, normal QRS, normal QT Discharge Plan Discharge Clinical Impression: Chest wall pain Patient Disposition: Home, Self-Care Instructions: Chest Wall Pain (ED) Additional Instructions: Increase fluids, rest Your EKG, chest x-ray and lab work was all unremarkable. Motrin or Tylenol for pain as needed Follow-up with primary care doctor Prescriptions: No Action lorazepam [Ativan] 0.5 mg tablet 0.5 mg PO BEDTIME PRN (Reason: anxiety) Qty: 14 RF: 0 azithromycin [Zithromax Z-Trevor] 250 mg tablet 250 mg PO DAILY 5 Days Qty: 5 RF: 0 erythromycin 5 mg/gram (0.5 %) ointment 0.5 inch ophthalmic (eye) TID Qty: 3.5 RF: 0 clindamycin HCl 300 mg capsule 300 mg PO TID 10 Days Qty: 30 RF: 0 ibuprofen 800 mg tablet 800 mg PO Q8H PRN (Reason: pain) Qty: 14 RF: 0 oxycodone-acetaminophen [Percocet] 5-325 mg tablet 1 tab PO Q6H PRN (Reason: pain) Qty: 10 RF: 0 Referrals: Physician,None [Primary Care Provider] - 2 days Interventions: ED Discharge Assessment Last Done: 02/02/21 11:32 Discharge Date/Time: 02/02/21 11:34 Print Language: Ukrainian
[2021-02-02 10:40] LABS: MANUAL DIFF FLAG NO
[2021-02-02 10:42] LABS: Basophils Percent Auto 0.4 % (0-2); Eosinophils Absolute Auto 0.2 X10*3/uL (0.0-0.4); Eosinophils Percent Auto 1.9 % (0-4); Hematocrit 33.9 % (37-47); Hemoglobin 10.4 g/dl (12.0-16.0); Imm Gran Abs Auto 0.03 X10*3/uL (0.00-0.03); Imm Gran Pct Auto 0.4 % (0.0-0.4); Lymphocytes Absolute Auto 1.9 X10*3/uL (1.2-4.9); Lymphocytes Percent Auto 23.4 % (20-40); Mean Corpuscular HGB Conc 30.7 g/dl (31.0-35.0); Mean Corpuscular Hemoglobin 22.9 pg (27.0-33.0); Mean Corpuscular Volume 74.7 fL (80-98); Mean Platelet Volume 11.4 fL (9.4-12.3); Monocytes Absolute Auto 0.7 X10*3/uL (0.1-1.2); Neutrophils Absolute Auto 5.4 X10*3/uL (2.0-8.3); Neutrophils Percent Auto 65.9 % (45-73); Platelet Count 267 X10*3/uL (160-400); Red Blood Count 4.54 X10*6/uL (4.20-5.50); Red Cell Distribution Width 15.4 % (11.0-16.0); White Blood Count 8.2 X10*3/uL (4.8-10.8)
[2021-02-02 11:11] LABS: Alanine Aminotransferase 42 U/L (0-31); Albumin Level 4.2 g/dL (3.5-5.0); Alkaline Phosphatase 78 U/L (39-117); Anion Gap 12 (12-20); Aspartate Amino Transferase 26 U/L (5-31); Bilirubin Direct < 0.2 mg/dL (0.0-0.5); Bilirubin Total 0.5 mg/dL (0.0-1.0); Blood Urea Nitrogen 9 mg/dL (9-16); Calcium 9.7 mg/dL (8.4-10.2); Carbon Dioxide 24 mmol/L (22-29); Chloride 105 mmol/L (96-108); Creatinine Clr Calc Pharmacy 122.2; Estimated Glomerular Filt Rate > 60; Glucose Random 99 mg/dL (60-115); Potassium 4.2 mmol/L (3.3-5.1); Sodium 137 mmol/L (135-145)
[2021-02-02 11:17] LABS: Troponin-I High Sensitivity < 3.5 ng/L (<3.5-17.0)
== END 2021-02-02 11:34 | disposition home or self-care (01) ==
PROVIDERS: Nurse Practitioner Family; Emergency Provider Emergency Medicine
DX: R07.89 Other chest pain (principal); F41.9 Anxiety disorder, unspecified; I10 Essential (primary) hypertension
CPT/HCPCS: 36415; 71046; 80048; 80076; 84484; 85025; 93005; 99283; 99284

== ENCOUNTER 2021-02-22 07:25 | Emergency (ER) | payer OTHER, SELFPAY ==
[2021-02-22 07:31] VITALS: BP 130/90; PULSE 95; O2SAT 98
[2021-02-22 08:36] VITALS: BP 155/92; PULSE 112; RESP 22; TEMP 37.9; O2SAT 98; BMI 33.2
--- NOTE | 2021-02-22 09:15 | ED.GENADULT ---
HPI - General Adult General Chief complaint: Abdominal Pain Stated complaint: Nausea Time Seen by Provider: 02/22/21 08:21 Source: patient Mode of arrival: ambulatory Limitations: no limitations History of Present Illness HPI narrative: 25-year-old female who presents emergency department for evaluation nausea, vomiting, diarrhea, lightheadedness/dizziness. The patient states that she ate shrimp, octopus and shellfish yesterday and approximately 3 hours after eating this food, she developed nausea, vomiting and diarrhea. She states she is the only person that ate this food. She states that she has vomited approximately 3-4 times. She states she has had diarrhea which is too numerous to count. She denies any blood in the emesis or diarrhea. She states that she has been feeling hot and cold but did not take her temperature. She has had persistent/constant nausea. She states this morning she felt weak and fatigued. She states that she felt very lightheaded and dizzy and every time she stands up her head spins and she feels like she is going to pass out. The patient has not been on antibiotics recently and has not traveled anywhere. The patient had a COVID-19 infection several months ago. She has not been vaccinated for COVID-19. Related Data Previous Rx's Medication Instructions Recorded azithromycin [Zithromax Z-Trevor] 250 mg PO DAILY 5 Days #5 tab 06/14/20 clindamycin HCl 300 mg PO TID 10 Days #30 cap 08/15/20 erythromycin 0.5 inch OPHTHALMIC (EYE) TID #3.5 08/15/20 g ibuprofen 800 mg PO Q8H PRN #14 tab 08/15/20 oxycodone-acetaminophen [Percocet] 1 tab PO Q6H PRN #10 tab 08/15/20 lorazepam [Ativan] 0.5 mg PO BEDTIME PRN #14 tab 10/31/20 metoclopramide HCl [Reglan] 10 mg PO Q6H PRN #14 tab 02/22/21 Allergies Allergy/AdvReac Type Severity Reaction Status Date / Time amoxicillin [AMOXICILLIN] Allergy Unknown UNKNOWN Verified 02/22/21 08:35 Review of Systems Review of Systems: Yes all other systems are reviewed and are negative PMFSH Past Medical History [facility] Narrative: Past medical history: Pre diabetes, hypertension, anxiety, anemia. Surgical history: 2019. Social history: She denies tobacco, alcohol and drug use. Medical History Anemia Anxiety HTN (hypertension) Social History Social History Alcohol intake: never Advance Directives: No Advance Directives Information Provided: Yes Patient : No Physical Exam Vital Signs: Vital Signs: Last Vital Signs Temp 100.2 F 02/22/21 08:36 Pulse 112 H 02/22/21 08:36 Resp 22 H 02/22/21 08:36 BP 155/92 H 02/22/21 08:36 Pulse Ox 98 02/22/21 08:36 Body Mass Index 33.2 Const: General: cooperative and healthy appearing Orientation/consciousness: oriented to person and oriented to place Limitations: no limitations HENMT: Head: Yes normal to inspection, Yes normocephalic and Yes atraumatic Ears: external ears normal General nose exam: Normal external nose present Face and sinus: Yes normal facial exam Mouth: Normal oral and palatal mucosa present Throat: Yes posterior oropharynx normal Eyes: Periorbital: periorbital findings normal Eyelids: Yes eyelids normal Conjunctivae: conjunctivae normal Sclerae: sclerae normal Corneas: corneas normal Pupils: Equal, round and reactive pupils present Direct Ophthalmoscopy: normal light reflex Neck: Neck: Yes full ROM, Yes no lymphadenopathy, Yes no meningeal signs, Yes trachea midline and Yes supple Chest: Chest palpation & inspection: normal inspection of the chest and normal palpation of entire chest wall Resp: Effort & Inspection: normal respiratory effort and able to speak in complete sentences Auscultation: clear to auscultation bilaterally Cardio: Rate: regular rate Rhythm: regular rhythm Heart sounds: S1 normal heart sound present, S2 normal heart sound present and no murmurs GI: Inspection: Yes normal to inspection Palpation (GI): Soft to palpation, Tenderness to palpation present (GI) in the epigastrum (Moderate), no guarding, not rigid and No hepatosplenomegaly present : General: Yes no CVA tenderness Back/Spine/Pelvis: Back: no CVA tenderness Cervical Spine: normal cervical lordosis Thoracic/Lumbar Spine: thoracic and lumbar spine normal to inspection Skin: Lesions: no lesions Rashes: no rashes Wounds: no wounds Neuro: General: oriented to person, oriented to place and no meningeal signs Cranial nerves: Yes CN's II-XII intact bilaterally and Yes Equal, round and reactive pupils present Cognition (Neuro): normal cognition Motor exam (neuro): 5/5 motor strength present throughout Extrem: General: Yes normal to inspection and Yes full ROM Psych: Appearance: well kempt Mental Status: mental status grossly normal Speech and movement: Normal speech and movement present Affect: normal affect Attitude: cooperative Thought process: Normal thought process present Thought content: Normal thought content present Course Course Course Narrative: 25-year-old female who presents emergency department for evaluation of nausea, vomiting, diarrhea, subjective fever, chills, lightheadedness and dizziness with symptoms occurring approximately 3 hours after eating seafood. Vital signs revealed an elevated blood pressure of 155/92, tachycardia with a pulse of 112 and an elevated respiratory rate of 22 Patient's physical examination revealed midepigastric tenderness otherwise was unremarkable. Patient's presentation is most likely consistent with food poison from the seafood that she yesterday. I did order laboratory evaluation. Patient was also given regular and 10 mg IV and Benadryl 50 mg IV for her nausea and vomiting. Her headache was treated with Toradol 30 mg IV. 1211: Patient's laboratory evaluation [place] [address] and a low bicarb of 21. Patient also had slight elevation in her AST and ALT. The patient felt better after receiving the above medication. The patient be discharged with prescription for Reglan. She was advised to take Reglan 10 mg with Benadryl 50 mg every 6 hours as needed for nausea and vomiting. He was also advised to take Tylenol and ibuprofen. The patient was given verbal and printed instructions prior to discharge. The patient was advised to follow-up with their PCP in 2 days and to return to the emergency department if their symptoms get worse or if they develop any new symptoms that are concerning to them Medical Decision Making Lab Data Result diagrams: 02/22/21 09:37 02/22/21 09:37 Labs: Lab Results 02/22/21 02/22/21 02/22/21 Range/Units 09:37 09:37 09:38 WBC 16.4 H (4.8-10.8) X10*3/uL RBC 4.84 (4.20-5.50) X10*6/uL Hgb 11.1 L (12.0-16.0) g/dl Hct 35.6 L (37-47) % MCV 73.6 L (80-98) fL MCH 22.9 L (27.0-33.0) pg MCHC 31.2 (31.0-35.0) g/dl RDW 14.9 (11.0-16.0) % Plt Count 323 (160-400) X10*3/uL MPV 10.8 (9.4-12.3) fL Immature Gran % (Auto) 0.4 (0.0-0.4) % Neut % (Auto) 85.1 H (45-73) % Lymph % (Auto) 8.4 L (20-40) % [place] % (Auto) 5.4 (2-11) % Eos % (Auto) 0.5 (0-4) % Baso % (Auto) 0.2 (0-2) % Lymph # (Auto) 1.4 (1.2-4.9) X10*3/uL [place] # (Auto) 0.9 (0.1-1.2) X10*3/uL Eos # (Auto) 0.1 (0.0-0.4) X10*3/uL Baso # (Auto) 0.0 (0.0-0.2) X10*3/uL Abs Immat Gran (auto) 0.07 H (0.00-0.03) X10*3/uL Absolute Neuts (auto) 14.0 H (2.0-8.3) X10*3/uL Absolute Nucleated RBC 0.000 (0.0-0.012) X10*3/uL Nucleated RBC % (auto) 0.0 (0.0-0.2) /100WBC Sodium 139 (135-145) mmol/L Potassium 4.2 (3.3-5.1) mmol/L Chloride 107 (96-108) mmol/L Carbon Dioxide 21 L (22-29) mmol/L Anion Gap 15 (12-20) BUN 7 L (9-16) mg/dL Creatinine 0.70 (0.5-1.4) mg/dL Estim Creat Clear Calc 111.8 Estimated GFR > 60 Random Glucose 96 (60-115) mg/dL Calcium 9.8 (8.4-10.2) mg/dL Total Bilirubin 0.7 (0.0-1.0) mg/dL AST 34 H (5-31) U/L ALT 72 H (0-31) U/L Alkaline Phosphatase 88 (39-117) U/L Total Protein 7.7 (6.5-8.0) g/dL Albumin 4.6 (3.5-5.0) g/dL Lipase 23 (8-78) U/L Urine Color Urine Appearance Urine pH (5.0-8.0) Ur Specific Mobile (1.005-1.025) Urine Protein (NEG-TRACE) MG/DL Urine Glucose (UA) (NEG) MG/DL Urine Ketones (NEG) MG/DL Urine Blood (NEG) Urine Nitrite (NEG) Ur Leukocyte Esterase (NEG) Urine RBC (0) /HPF Urine WBC (0-4) /HPF Ur Squamous Epith Cells /LPF Urine Bacteria /LPF Urine Test (NEGATIVE) COVID-19 ([facility]) Negative (Negative) COVID-19 Clin Com See Note 02/22/21 02/22/21 Range/Units 09:38 09:38 WBC (4.8-10.8) X10*3/uL RBC (4.20-5.50) X10*6/uL Hgb (12.0-16.0) g/dl Hct (37-47) % MCV (80-98) fL MCH (27.0-33.0) pg MCHC (31.0-35.0) g/dl RDW (11.0-16.0) % Plt Count (160-400) X10*3/uL MPV (9.4-12.3) fL Immature Gran % (Auto) (0.0-0.4) % Neut % (Auto) (45-73) % Lymph % (Auto) (20-40) % [place] % (Auto) (2-11) % Eos % (Auto) (0-4) % Baso % (Auto) (0-2) % Lymph # (Auto) (1.2-4.9) X10*3/uL Will # (Auto) (0.1-1.2) X10*3/uL Eos # (Auto) (0.0-0.4) X10*3/uL Baso # (Auto) (0.0-0.2) X10*3/uL Abs Immat Gran (auto) (0.00-0.03) X10*3/uL Absolute Neuts (auto) (2.0-8.3) X10*3/uL Absolute Nucleated RBC (0.0-0.012) X10*3/uL Nucleated RBC % (auto) (0.0-0.2) /100WBC Sodium (135-145) mmol/L Potassium (3.3-5.1) mmol/L Chloride (96-108) mmol/L Carbon Dioxide (22-29) mmol/L Anion Gap (12-20) BUN (9-16) mg/dL Creatinine (0.5-1.4) mg/dL Estim Creat Clear Calc Estimated GFR Random Glucose (60-115) mg/dL Calcium (8.4-10.2) mg/dL Total Bilirubin (0.0-1.0) mg/dL AST (5-31) U/L ALT (0-31) U/L Alkaline Phosphatase (39-117) U/L Total Protein (6.5-8.0) g/dL Albumin (3.5-5.0) g/dL Lipase (8-78) U/L Urine Color YELLOW Urine Appearance HAZY Urine pH 7.5 (5.0-8.0) Ur Specific Mobile 1.010 (1.005-1.025) Urine Protein NEG (NEG-TRACE) MG/DL Urine Glucose (UA) NEG (NEG) MG/DL Urine Ketones NEG (NEG) MG/DL Urine Blood NEG (NEG) Urine Nitrite NEG (NEG) Ur Leukocyte Esterase 2+ H (NEG) Urine RBC 0 (0) /HPF Urine WBC 0-2 (0-4) /HPF Ur Squamous Epith Cells 2+ /LPF Urine Bacteria TRACE /LPF Urine Test NEGATIVE (NEGATIVE) COVID-19 ([facility]) (Negative) COVID-19 Clin Com Discharge Plan Discharge Clinical Impression: Food poisoning Vomiting Qualifiers: Vomiting type: unspecified Vomiting Intractability: non-intractable Nausea presence: with nausea Qualified Code(s): R11.2 - Nausea with vomiting, unspecified Diarrhea Qualifiers: Diarrhea type: unspecified type Qualified Code(s): R19.7 - Diarrhea, unspecified Patient Disposition: Home, Self-Care Instructions: Food Poisoning (ED) Additional Instructions: You symptoms and presentations are consistent with food poisoning most likely caused by the Sea food that she ate yesterday. Take the following 2 medications together for nausea and vomiting: Reglan 10 mg, 1 pill every 6 hours Benadryl 25 mg pills, 2 pills every 6 hours Take ibuprofen 200 mg pills, 3 pills every 6 hours as needed for pain. Take Tylenol (acetaminophen) 500 mg pills, 2 pills every 4 to 6 hours as needed for pain. Follow-up with your doctor in 2 days. Please return to the emergency department if your symptoms get worse or if you develop any symptoms that are concerning to you. Prescriptions: New metoclopramide HCl [Reglan] 10 mg tablet 10 mg PO Q6H PRN (Reason: nausea and vomiting) Qty: 14 RF: 0 No Action lorazepam [Ativan] 0.5 mg tablet 0.5 mg PO BEDTIME PRN (Reason: anxiety) Qty: 14 RF: 0 azithromycin [Zithromax Z-Trevor] 250 mg tablet 250 mg PO DAILY 5 Days Qty: 5 RF: 0 erythromycin 5 mg/gram (0.5 %) ointment 0.5 inch ophthalmic (eye) TID Qty: 3.5 RF: 0 clindamycin HCl 300 mg capsule 300 mg PO TID 10 Days Qty: 30 RF: 0 ibuprofen 800 mg tablet 800 mg PO Q8H PRN (Reason: pain) Qty: 14 RF: 0 oxycodone-acetaminophen [Percocet] 5-325 mg tablet 1 tab PO Q6H PRN (Reason: pain) Qty: 10 RF: 0
[2021-02-22 09:42] LABS: MANUAL DIFF FLAG NO
[2021-02-22 09:45] LABS: Basophils Percent Auto 0.2 % (0-2); Eosinophils Absolute Auto 0.1 X10*3/uL (0.0-0.4); Eosinophils Percent Auto 0.5 % (0-4); Hematocrit 35.6 % (37-47); Hemoglobin 11.1 g/dl (12.0-16.0); Imm Gran Abs Auto 0.07 X10*3/uL (0.00-0.03); Imm Gran Pct Auto 0.4 % (0.0-0.4); Lymphocytes Absolute Auto 1.4 X10*3/uL (1.2-4.9); Lymphocytes Percent Auto 8.4 % (20-40); Mean Corpuscular HGB Conc 31.2 g/dl (31.0-35.0); Mean Corpuscular Hemoglobin 22.9 pg (27.0-33.0); Mean Corpuscular Volume 73.6 fL (80-98); Mean Platelet Volume 10.8 fL (9.4-12.3); Monocytes Absolute Auto 0.9 X10*3/uL (0.1-1.2); Monocytes Percent Auto 5.4 % (2-11); Neutrophils Percent Auto 85.1 % (45-73); Platelet Count 323 X10*3/uL (160-400); Red Blood Count 4.84 X10*6/uL (4.20-5.50); Red Cell Distribution Width 14.9 % (11.0-16.0); White Blood Count 16.4 X10*3/uL (4.8-10.8)
[2021-02-22 09:46] LABS: Glucose Urine UA NEG (NEG); Leukocyte Esterase Urine 2+ (NEG); Nitrite Urine NEG (NEG); PH 7.5 (5.0-8.0); UACC Culture Trigger YES; Urine Blood NEG (NEG); Urine Ketones NEG (NEG); Urine Protein NEG (NEG-TRACE)
[2021-02-22] MEDS: 0.9 % Sodium Chloride 1,000 ML 999 ML IV (09:46)
[2021-02-22] MEDS: Metoclopramide HCl 10 MG/2 ML VIAL IVPUSH (09:47)
[2021-02-22] MEDS: Ketorolac Tromethamine 30 MG/ML VIAL IVPUSH (09:47)
[2021-02-22] MEDS: diphenhydrAMINE HCL 50 MG/ML VIAL IVPUSH (09:47)
[2021-02-22 09:48] LABS: UPreg QC Valid YES; Urine Pregnancy NEGATIVE (NEGATIVE)
[2021-02-22 09:49] LABS: Appearance Urine HAZY; Color Urine YELLOW
[2021-02-22 09:56] LABS: Bacteria Urine TRACE /LPF; RBC Urine 0 /HPF (0); Squamous Epithelial Cell Urine 2+ /LPF; WBC Urine 0-2 /HPF (0-4)
[2021-02-22 09:58] LABS: COVID-19 Test Negative (Negative)
[2021-02-22 10:06] LABS: Alanine Aminotransferase 72 U/L (0-31); Albumin Level 4.6 g/dL (3.5-5.0); Alkaline Phosphatase 88 U/L (39-117); Anion Gap 15 (12-20); Aspartate Amino Transferase 34 U/L (5-31); Bilirubin Total 0.7 mg/dL (0.0-1.0); Blood Urea Nitrogen 7 mg/dL (9-16); Calcium 9.8 mg/dL (8.4-10.2); Carbon Dioxide 21 mmol/L (22-29); Chloride 107 mmol/L (96-108); Creatinine Clr Calc Pharmacy 111.8; Estimated Glomerular Filt Rate > 60; Glucose Random 96 mg/dL (60-115); Lipase 23 U/L (8-78); Potassium 4.2 mmol/L (3.3-5.1); Sodium 139 mmol/L (135-145); Total Protein 7.7 g/dL (6.5-8.0)
== END 2021-02-22 12:53 | disposition home or self-care (01) ==
PROVIDERS: Emergency Provider Emergency Medicine Emergency Medical Services
DX: A05.9 Bacterial foodborne intoxication, unspecified (principal); I10 Essential (primary) hypertension; Z20.822 Contact with and (suspected) exposure to COVID-19
CPT/HCPCS: 36415; 80053; 81001; 81003; 81025; 83690; 85025; 87086; 87635; 96361; 96374; 96375; 99283; 99284; J1200; J1885; J2765

== ENCOUNTER 2021-03-10 02:38 | Emergency (ER) | payer OTHER, SELFPAY ==
[2021-03-10 03:07] VITALS: BP 130/81; PULSE 94; RESP 16; TEMP 36.1; O2SAT 99; BMI 35.2
--- NOTE | 2021-03-10 04:07 | ED_ITS ---
HPI - General Adult General Chief complaint: General Medical Stated complaint: Possible anxiety attack, dizziness and blurriness Time Seen by Provider: 03/10/21 04:07 Source: patient Mode of arrival: ambulatory Limitations: no limitations History of Present Illness HPI narrative: patient with multiple complaints feels very anxious on Ativan which she took last night complaining of numbness headache dizziness feels like same as when she had panic attack before patient has seen his psychiatrist 2 weeks ago and plan to see her in 2 days for further management and treatment Related Data Previous Rx's Medication Instructions Recorded azithromycin [Zithromax Z-Trevor] 250 mg PO DAILY 5 Days #5 tab 06/14/20 clindamycin HCl 300 mg PO TID 10 Days #30 cap 08/15/20 erythromycin 0.5 inch OPHTHALMIC (EYE) TID #3.5 08/15/20 g ibuprofen 800 mg PO Q8H PRN #14 tab 08/15/20 oxycodone-acetaminophen [Percocet] 1 tab PO Q6H PRN #10 tab 08/15/20 lorazepam [Ativan] 0.5 mg PO BEDTIME PRN #14 tab 10/31/20 metoclopramide HCl [Reglan] 10 mg PO Q6H PRN #14 tab 02/22/21 Allergies Allergy/AdvReac Type Severity Reaction Status Date / Time amoxicillin [AMOXICILLIN] Allergy Unknown UNKNOWN Verified 02/22/21 08:35 Review of Systems Review of Systems: Yes all other systems are reviewed and are negative [facility] Past Medical History Medical History Anemia Anxiety HTN (hypertension) Surgical History H/O: Social History Social History Alcohol intake: never Advance Directives: No Advance Directives Information Provided: No Patient : No Physical Exam Vital Signs: Vital Signs: Last Vital Signs Temp 96.9 F 03/10/21 03:07 Pulse 94 03/10/21 03:07 Resp 16 03/10/21 03:07 BP 130/81 03/10/21 03:07 Pulse Ox 99 03/10/21 03:07 Body Mass Index 35.2 Appearance: Alert. Oriented X3. No acute distress. anxious Eyes: PERRLA, ENT: Pharynx normal. Oral Mucosa moist Neck: Normal inspection. Neck supple. CVS: Normal heart rate and rhythm. Pulses normal. Respiratory: No respiratory distress. Equal air entry bilateral, no wheezing/rales/rhonchi Abdomen: Soft and nontender. Bowel sounds are present, Skin: Skin warm and dry. Normal skin color. Normal skin turgor. Extremities: No lower extremity edema. No calf tendernes Discharge Plan Discharge Clinical Impression: Anxiety Patient Disposition: Home, Self-Care Instructions: Anxiety (ED) Additional Instructions: taking medications as prescribed and follow with psychiatrist as scheduled Prescriptions: No Action lorazepam [Ativan] 0.5 mg tablet 0.5 mg PO BEDTIME PRN (Reason: anxiety) Qty: 14 RF: 0 metoclopramide HCl [Reglan] 10 mg tablet 10 mg PO Q6H PRN (Reason: nausea and vomiting) Qty: 14 RF: 0 azithromycin [Zithromax Z-Trevor] 250 mg tablet 250 mg PO DAILY 5 Days Qty: 5 RF: 0 erythromycin 5 mg/gram (0.5 %) ointment 0.5 inch ophthalmic (eye) TID Qty: 3.5 RF: 0 clindamycin HCl 300 mg capsule 300 mg PO TID 10 Days Qty: 30 RF: 0 ibuprofen 800 mg tablet 800 mg PO Q8H PRN (Reason: pain) Qty: 14 RF: 0 oxycodone-acetaminophen [Percocet] 5-325 mg tablet 1 tab PO Q6H PRN (Reason: pain) Qty: 10 RF: 0 Interventions: ED Discharge Assessment Last Done: 03/10/21 04:53
[2021-03-10] MEDS: LORazepam 1 MG TABLET PO (04:41)
== END 2021-03-10 04:53 | disposition home or self-care (01) ==
PROVIDERS: Emergency Provider Internal Medicine; PCP Internal Medicine
DX: F41.9 Anxiety disorder, unspecified (principal); I10 Essential (primary) hypertension; Z79.899 Other long term (current) drug therapy
CPT/HCPCS: 99283

== ENCOUNTER 2021-05-10 20:01 | Emergency (ER) | payer OTHER, SELFPAY ==
[2021-05-10 21:01] VITALS: BP 172/93; PULSE 99; RESP 16; TEMP 36.1; O2SAT 100; BMI 32.2
--- NOTE | 2021-05-10 21:52 | ED_ITS ---
HPI - Back Pain/Injury General Chief Complaint: Back Pain/Injury Stated Complaint: Upper back pain Source: patient Mode of arrival: ambulatory Limitations: language barrier History of Present Illness HPI Narrative: 26-year-old female presents with work related upper back pain. States that she herself at work while lifting a box, and felt a pulling pain to the right upper shoulder. At this time she does have full range of motion but states that she does have a burning pain to her trapezius muscle. She does not describe any other symptoms or injury. MD elicited complaint: back pain Onset (ago): day(s) (2) Timing: constant Severity: moderate Similar Symptoms Previously: No Quality: burning and aching Location: right upper back Radiation: none Exacerbating factors: movement and lifting Relieving factors: immobilization Context: while lifting Associated symptoms: denies other symptoms Work related injury: Yes Related Data Previous Rx's Medication Instructions Recorded azithromycin 250 mg tablet 250 mg PO DAILY 5 Days #5 tab 06/14/20 (Zithromax Z-Trevor) clindamycin HCl 300 mg capsule 300 mg PO TID 10 Days #30 cap 08/15/20 erythromycin 5 mg/gram (0.5 %) eye 0.5 inch OPHTHALMIC (EYE) TID #3.5 08/15/20 ointment g ibuprofen 800 mg tablet 800 mg PO Q8H PRN #14 tab 08/15/20 oxycodone-acetaminophen 5 mg-325 1 tab PO Q6H PRN #10 tab 08/15/20 mg tablet (Percocet) lorazepam 0.5 mg tablet (Ativan) 0.5 mg PO BEDTIME PRN #14 tab 10/31/20 metoclopramide HCl 10 mg tablet 10 mg PO Q6H PRN #14 tab 02/22/21 (Reglan) cyclobenzaprine 5 mg tablet 5 mg PO TID PRN #10 tab 05/10/21 ibuprofen 600 mg tablet 600 mg PO Q6H PRN #30 tab 05/10/21 Allergies Allergy/AdvReac Type Severity Reaction Status Date / Time amoxicillin [AMOXICILLIN] Allergy Unknown UNKNOWN Verified 02/22/21 08:35 Review of Systems Review of Systems: Constitutional: No Fever, No Chills ENT/Mouth: No Ear Pain, No Hoarseness, No sore throat Eyes: No Eye Pain, No Swelling, No Redness, No Foreign Body Cardiovascular: No Chest Pain, No SOB Respiratory: No Cough, No Dyspnea Gastrointestinal: No Nausea, No Vomiting, No Diarrhea, No abdominal Pain Genitourinary: No Dysuria, No Hematuria Musculoskeletal: positive right shoulder pain, No Myalgias, No Joint Swelling Skin: No Skin lacerations, No rash Neuro: No Weakness, No Numbness, No Paresthesias, No Loss of Consciousness, No Dizziness, No Headache Psych: No Anxiety/Panic, No Depression Heme/Lymph: no easy bruising, no Lymphadenopathy Endocrine: No Polyuria, No Polydipsia Yes all other systems are reviewed and are negative [facility] Past Medical History Attestation statement: The following information was validated with the patient. Source: old records reviewed Medical History Anemia Anxiety HTN (hypertension) Surgical History H/O: Social History Social History Alcohol intake: never Advance Directives: No Patient : No Physical Exam Vital Signs: Vital Signs: Last Vital Signs Temp 97 F 05/10/21 21:01 Pulse 99 05/10/21 21:01 Resp 16 05/10/21 21:01 BP 172/93 H 05/10/21 21:01 Pulse Ox 100 05/10/21 21:01 Body Mass Index 32.2 Appearance: Alert. Oriented X3. No acute distress. Eyes: Pupils equal, round and reactive to light. ENT: Pharynx normal. Neck: Normal inspection. Neck supple. CVS: Normal heart rate and rhythm. Pulses normal. Respiratory: No respiratory distress. Breath sounds normal. Abdomen: Soft and nontender. Skin: Skin warm and dry. Normal skin color. Normal skin turgor. Extremities: Full range of motion to upper extremities, strength 5/5, brisk capillary refill and equal pulses bilaterally, tenderness noted to the trapezius muscle on the right side only. No vertebral tenderness or step-offs noted. Neuro: No motor deficit. No sensory deficit. Cranial nerves 2-12 intact. Course Course Course Narrative: 26-year-old female presents with injury sustained at work. Patient does have full range of motion to upper extremities, brisk capillary refill, no erythema, wounds, lesions, or bruising noted. Patient's injuries are highly suggestive of muscular skeletal strain. Will provide pain management and cyclobenzaprine. Patient has no indication of abdominal pain, abdominal exam is negative, negative Oconnor's and McBurney's. Eating and drinking do not make a difference with her pain. Low to no likelihood cholecystitis or acute abdomen. Patient verbalized understanding of and agrees to plan of care discharge home. lithopone charger utilized for all correspondence. Google translate utilized for discharge instructions. MDM - Back Pain/Injury MDM Narrative Medical decision making narrative: Shoulder strain Medical Records Attestation: I reviewed the patient's medical records. Discharge Plan Discharge Clinical Impression: Right shoulder strain Patient Disposition: Home, Self-Care Instructions: Muscle Strain (ED) Additional Instructions: Se le evalu? por dolor en el hombro derecho despu?s de annelise lesi?n sufrida en el trabajo. Amisha un seguimiento con la conexi?n de trabajo dentro de la pr?xima semana para repetir la evaluaci?n. Shweta lesiones son consistentes con annelise distensi?n muscular esquel?vi. Utilice ciclobenzaprina, que es un relajante muscular seg?n sea necesario. Jayashree medicamento puede retrasar el tiempo de reacci?n, aumentar el riesgo de ca?blandon y causar somnolencia. No conduzca ni maneje maquinaria mientras est? tomando jayashree medicamento. Utilice Motrin seg?n sea necesario para controlar el dolor. Jhoan por elegir jayashree departamento de emergencias para kern evaluaci?n. Amisha un seguimiento con kern m?dico de atenci?n primaria seg?n sea necesario. Regrese al departamento de emergencias por cualquier s?ntoma nuevo, preocupante o que empeore. You were evaluated for right shoulder pain after an injury sustained at work. Please follow up with work connection within the next week for repeat evaluation. Your injuries are consistent with a muscular skeletal strain. Please use cyclobenzaprine, which is a muscle relaxer as needed. This medication can delay reaction time, increased risk for falls, and cause drowsiness. Do not drive or operate machinery while taking this medication. Please use Motrin as needed for pain management. Thank you for choosing this emergency department for evaluation. Please follow-up with primary care physician as needed. Return to the emergency department for any new, concerning, or worsening symptoms. Prescriptions: New cyclobenzaprine 5 mg tablet 5 mg PO TID PRN (Reason: muscle spasm) Qty: 10 RF: 0 ibuprofen 600 mg tablet 600 mg PO Q6H PRN (Reason: pain) Qty: 30 RF: 0 No Action lorazepam [Ativan] 0.5 mg tablet 0.5 mg PO BEDTIME PRN (Reason: anxiety) Qty: 14 RF: 0 metoclopramide HCl [Reglan] 10 mg tablet 10 mg PO Q6H PRN (Reason: nausea and vomiting) Qty: 14 RF: 0 azithromycin [Zithromax Z-Trevor] 250 mg tablet 250 mg PO DAILY 5 Days Qty: 5 RF: 0 erythromycin 5 mg/gram (0.5 %) ointment 0.5 inch ophthalmic (eye) TID Qty: 3.5 RF: 0 clindamycin HCl 300 mg capsule 300 mg PO TID 10 Days Qty: 30 RF: 0 ibuprofen 800 mg tablet 800 mg PO Q8H PRN (Reason: pain) Qty: 14 RF: 0 oxycodone-acetaminophen [Percocet] 5-325 mg tablet 1 tab PO Q6H PRN (Reason: pain) Qty: 10 RF: 0 Stand Alone Forms: Work/School Release Interventions: ED Discharge Assessment Last Done: 05/10/21 23:00 Discharge Date/Time: 05/10/21 23:00
[2021-05-10] MEDS: Ibuprofen 600 MG TABLET PO (22:58)
[2021-05-10] MEDS: Cyclobenzaprine HCl 5 MG TABLET PO (22:58)
== END 2021-05-10 23:00 | disposition home or self-care (01) ==
PROVIDERS: Emergency Provider Internal Medicine; PCP Internal Medicine
DX: S46.911A Strain of unspecified muscle, fascia and tendon at shoulder and upper arm level, right arm, initial encounter (principal); X50.0XXA Overexertion from strenuous movement or load, initial encounter; M25.511 Pain in right shoulder; X50.3XXA Overexertion from repetitive movements, initial encounter; X50.9XXA Other and unspecified overexertion or strenuous movements or postures, initial encounter; Y93.9 Activity, unspecified; Y92.9 Unspecified place or not applicable; Y99.0 Civilian activity done for income or pay; Z79.899 Other long term (current) drug therapy
CPT/HCPCS: 99283; 99284

== ENCOUNTER 2021-05-25 18:21 | Emergency (ER) | payer OTHER, SELFPAY ==
--- NOTE | ~2021-05-25 | CT_ITS ---
EXAMINATION: CT ABDOMEN AND PELVIS WITH CONTRAST CLINICAL INFORMATION: RLQ/Suprapubic pain, UA neg COMPARISON: Chest x-ray February 02, 2021 TECHNIQUE: Multidetector volumetric images were obtained from the superior aspect of the liver through the pubic symphysis following administration 85 mL of Omnipaque 350 intravenous contrast. Sagittal and coronal reformatted images were obtained on the technologist's workstation. Oral contrast: No This CT examination was performed using dose optimization techniques as appropriate, variously including the following: *Automated exposure control *Adjustment of mA and/or kV according to patient size (this includes techniques or standardized protocols for targeted exams where dose is matched to indication/reason for exam; i.e. extremities or head) *Use of iterative reconstruction technique DLP: 577 mGy-cm FINDINGS: LUNG BASES: The visualized lung bases are unremarkable. LIVER, GALLBLADDER, AND BILIARY TREE: The liver is normal in size, shape, and attenuation. No focal hepatic lesion or biliary ductal dilatation is present. The gallbladder is unremarkable with no evidence of radiopaque gallstones, gallbladder wall thickening, or obvious pericholecystic inflammatory changes. PANCREAS: Unremarkable. SPLEEN: Unremarkable. ADRENAL GLANDS: Unremarkable. KIDNEYS AND URETERS: The kidneys are normal in size, shape, and attenuation. No hydronephrosis, hydroureter, or calculi seen. No perinephric stranding. BLADDER: Unremarkable. GASTROINTESTINAL TRACT: The small and large bowel are unremarkable. The appendix is unremarkable. ABDOMINAL WALL: No significant hernia is appreciated. LYMPH NODES: Normal. VASCULAR: Unremarkable. PELVIC VISCERA: Unremarkable. OSSEOUS STRUCTURES: Unremarkable. CT/CT abdomen pelvis w con IMPRESSION: No significant abnormality.
[2021-05-25 20:34] VITALS: BP 149/77; PULSE 105; RESP 16; TEMP 37.1; O2SAT 99; BMI 29.2
[2021-05-25 21:26] VITALS: BP 128/78; PULSE 89; RESP 16; TEMP 36.8; O2SAT 97
[2021-05-25 21:30] LABS: Basophils Percent Auto 0.3 % (0-2); Eosinophils Absolute Auto 0.4 X10*3/uL (0.0-0.4); Eosinophils Percent Auto 2.7 % (0-4); Hematocrit 41.6 % (37-47); Hemoglobin 12.7 g/dl (12.0-16.0); Imm Gran Abs Auto 0.04 X10*3/uL (0.00-0.03); Imm Gran Pct Auto 0.3 % (0.0-0.4); Lymphocytes Absolute Auto 3.2 X10*3/uL (1.2-4.9); Lymphocytes Percent Auto 25.3 % (20-40); MANUAL DIFF FLAG NO; Mean Corpuscular HGB Conc 30.5 g/dl (31.0-35.0); Mean Corpuscular Hemoglobin 21.4 pg (27.0-33.0); Mean Corpuscular Volume 70.2 fL (80-98); Mean Platelet Volume 10.6 fL (9.4-12.3); Monocytes Percent Auto 7.7 % (2-11); Neutrophils Absolute Auto 8.2 X10*3/uL (2.0-8.3); Neutrophils Percent Auto 63.7 % (45-73); Platelet Count 373 X10*3/uL (160-400); Red Blood Count 5.93 X10*6/uL (4.20-5.50); Red Cell Distribution Width 15.5 % (11.0-16.0); White Blood Count 12.8 X10*3/uL (4.8-10.8)
[2021-05-25 21:31] LABS: Appearance Urine CLEAR; Color Urine YELLOW; Glucose Urine UA NEG (NEG); Leukocyte Esterase Urine NEG (NEG); Nitrite Urine NEG (NEG); PH 6.5 (5.0-8.0); Specific Gravity - Urine 1.015 (1.005-1.025); Urine Blood NEG (NEG); Urine Ketones NEG (NEG); Urine Protein NEG (NEG-TRACE)
[2021-05-25 22:14] LABS: Alanine Aminotransferase 28 U/L (0-31); Albumin Level 4.6 g/dL (3.5-5.0); Alkaline Phosphatase 109 U/L (39-117); Anion Gap 13 (12-20); Aspartate Amino Transferase 20 U/L (5-31); Bilirubin Total 0.4 mg/dL (0.0-1.0); Blood Urea Nitrogen 10 mg/dL (9-16); Calcium 10.8 mg/dL (8.4-10.2); Carbon Dioxide 29 mmol/L (22-29); Chloride 99 mmol/L (96-108); Creatinine Clr Calc Pharmacy 105.3; Estimated Glomerular Filt Rate > 60; Glucose Random 99 mg/dL (60-115); Potassium 4.3 mmol/L (3.3-5.1); Sodium 137 mmol/L (135-145); Total Protein 8.1 g/dL (6.5-8.0)
[2021-05-25 22:30] VITALS: BP 130/69; PULSE 108; RESP 16; O2SAT 98
[2021-05-25 22:34] LABS: UPreg QC Valid YES; Urine Pregnancy NEGATIVE (NEGATIVE)
--- NOTE | 2021-05-25 23:02 | ED.ABDPAIN ---
HPI - Abdominal Pain General Chief Complaint: Abdominal Pain Stated Complaint: severe abd pain Time Seen by Provider: 05/25/21 22:22 Source: patient Mode of arrival: ambulatory History of Present Illness HPI narrative: 26-year-old female without significant past medical history who presents with complaints of suprapubic/right lower quadrant pain for approximately 2 days that his also caused pain on bilateral flanks and although not associated with diarrhea, nausea, vomiting states that she has had chills. She denies vaginal discharge and does have a positive past surgical history of . Last bowel movement was today. Related Data Previous Rx's Medication Instructions Recorded azithromycin 250 mg tablet 250 mg PO DAILY 5 Days #5 tab 06/14/20 (Zithromax Z-Trevor) clindamycin HCl 300 mg capsule 300 mg PO TID 10 Days #30 cap 08/15/20 erythromycin 5 mg/gram (0.5 %) eye 0.5 inch OPHTHALMIC (EYE) TID #3.5 08/15/20 ointment g ibuprofen 800 mg tablet 800 mg PO Q8H PRN #14 tab 08/15/20 oxycodone-acetaminophen 5 mg-325 1 tab PO Q6H PRN #10 tab 08/15/20 mg tablet (Percocet) lorazepam 0.5 mg tablet (Ativan) 0.5 mg PO BEDTIME PRN #14 tab 10/31/20 metoclopramide HCl 10 mg tablet 10 mg PO Q6H PRN #14 tab 02/22/21 (Reglan) cyclobenzaprine 5 mg tablet 5 mg PO TID PRN #10 tab 05/10/21 ibuprofen 600 mg tablet 600 mg PO Q6H PRN #30 tab 05/10/21 Allergies Allergy/AdvReac Type Severity Reaction Status Date / Time amoxicillin [AMOXICILLIN] Allergy Unknown UNKNOWN Verified 02/22/21 08:35 Review of Systems Review of Systems Pertinent positives and negatives as stated in HPI 10 point review of systems is otherwise negative. Physical Exam Vital Signs: Vital Signs: Last Vital Signs Temp 98.2 F 05/25/21 21:26 Pulse 108 H 05/25/21 22:30 Resp 16 05/25/21 22:30 BP 130/69 05/25/21 22:30 Pulse Ox 98 05/25/21 22:30 Body Mass Index 29.2 VITAL SIGNS: Reviewed. GENERAL: Well developed, well nourished, in no acute distress. HEAD: Normocephalic/atraumatic EYES: PERRLA, EOMI LUNGS: Normal breath sounds. . SpO2<98> CARDIOVASCULAR: Regular rate and rhythm without noted murmurs ABDOMEN: Soft, tenderness right lower quadrant/suprapubic without rebound, non-distended with bowel sounds, no CVA tenderness NEUROLOGIC: Alert and oriented x 4. Strength and sensation to light touch were grossly intact x 4. Course Course Course Narrative: 26-year-old female with history and clinical presentation suggestive of possible UTI, low clinical suspicion for STI, appendicitis, low clinical suspicion for SBO. Review of all investigations otherwise negative for acute findings. Patient was informed of results and provided combination analgesics for discomfort. She was then directed to follow-up with her primary care provider for re-evaluation further outpatient management MDM - Abdominal Pain Lab Data Result diagrams: 05/25/21 21:24 05/25/21 21:24 Labs: Lab Results 05/25/21 05/25/21 05/25/21 Range/Units 21:24 21:24 21:24 WBC 12.8 H (4.8-10.8) X10*3/uL RBC 5.93 H D (4.20-5.50) X10*6/uL Hgb 12.7 (12.0-16.0) g/dl Hct 41.6 (37-47) % MCV 70.2 L (80-98) fL MCH 21.4 L (27.0-33.0) pg MCHC 30.5 L (31.0-35.0) g/dl RDW 15.5 (11.0-16.0) % Plt Count 373 (160-400) X10*3/uL MPV 10.6 (9.4-12.3) fL Immature Gran % (Auto) 0.3 (0.0-0.4) % Neut % (Auto) 63.7 (45-73) % Lymph % (Auto) 25.3 (20-40) % [place] % (Auto) 7.7 (2-11) % Eos % (Auto) 2.7 (0-4) % Baso % (Auto) 0.3 (0-2) % Lymph # (Auto) 3.2 (1.2-4.9) X10*3/uL [place] # (Auto) 1.0 (0.1-1.2) X10*3/uL Eos # (Auto) 0.4 (0.0-0.4) X10*3/uL Baso # (Auto) 0.0 (0.0-0.2) X10*3/uL Abs Immat Gran (auto) 0.04 H (0.00-0.03) X10*3/uL Absolute Neuts (auto) 8.2 (2.0-8.3) X10*3/uL Absolute Nucleated RBC 0.000 (0.0-0.012) X10*3/uL Nucleated RBC % (auto) 0.0 (0.0-0.2) /100WBC Sodium 137 (135-145) mmol/L Potassium 4.3 (3.3-5.1) mmol/L Chloride 99 (96-108) mmol/L Carbon Dioxide 29 (22-29) mmol/L Anion Gap 13 (12-20) BUN 10 (9-16) mg/dL Creatinine 0.69 (0.5-1.4) mg/dL Estim Creat Clear Calc 105.3 Estimated GFR > 60 Random Glucose 99 (60-115) mg/dL Calcium 10.8 H D (8.4-10.2) mg/dL Total Bilirubin 0.4 (0.0-1.0) mg/dL AST 20 D (5-31) U/L ALT 28 (0-31) U/L Alkaline Phosphatase 109 D (39-117) U/L Total Protein 8.1 H (6.5-8.0) g/dL Albumin 4.6 (3.5-5.0) g/dL Urine Color YELLOW Urine Appearance CLEAR Urine pH 6.5 (5.0-8.0) Ur Specific Allen 1.015 (1.005-1.025) Urine Protein NEG (NEG-TRACE) MG/DL Urine Glucose (UA) NEG (NEG) MG/DL Urine Ketones NEG (NEG) MG/DL Urine Blood NEG (NEG) Urine Nitrite NEG (NEG) Ur Leukocyte Esterase NEG (NEG) Urine Test (NEGATIVE) 05/25/21 Range/Units 21:24 WBC (4.8-10.8) X10*3/uL RBC (4.20-5.50) X10*6/uL Hgb (12.0-16.0) g/dl Hct (37-47) % MCV (80-98) fL MCH (27.0-33.0) pg MCHC (31.0-35.0) g/dl RDW (11.0-16.0) % Plt Count (160-400) X10*3/uL MPV (9.4-12.3) fL Immature Gran % (Auto) (0.0-0.4) % Neut % (Auto) (45-73) % Lymph % (Auto) (20-40) % [place] % (Auto) (2-11) % Eos % (Auto) (0-4) % Baso % (Auto) (0-2) % Lymph # (Auto) (1.2-4.9) X10*3/uL [place] # (Auto) (0.1-1.2) X10*3/uL Eos # (Auto) (0.0-0.4) X10*3/uL Baso # (Auto) (0.0-0.2) X10*3/uL Abs Immat Gran (auto) (0.00-0.03) X10*3/uL Absolute Neuts (auto) (2.0-8.3) X10*3/uL Absolute Nucleated RBC (0.0-0.012) X10*3/uL Nucleated RBC % (auto) (0.0-0.2) /100WBC Sodium (135-145) mmol/L Potassium (3.3-5.1) mmol/L Chloride (96-108) mmol/L Carbon Dioxide (22-29) mmol/L Anion Gap (12-20) BUN (9-16) mg/dL Creatinine (0.5-1.4) mg/dL Estim Creat Clear Calc Estimated GFR Random Glucose (60-115) mg/dL Calcium (8.4-10.2) mg/dL Total Bilirubin (0.0-1.0) mg/dL AST (5-31) U/L ALT (0-31) U/L Alkaline Phosphatase (39-117) U/L Total Protein (6.5-8.0) g/dL Albumin (3.5-5.0) g/dL Urine Color Urine Appearance Urine pH (5.0-8.0) Ur Specific Allen (1.005-1.025) Urine Protein (NEG-TRACE) MG/DL Urine Glucose (UA) (NEG) MG/DL Urine Ketones (NEG) MG/DL Urine Blood (NEG) Urine Nitrite (NEG) Ur Leukocyte Esterase (NEG) Urine Test NEGATIVE (NEGATIVE) Discharge Plan Discharge Clinical Impression: Abdominal pain Patient Disposition: Home, Self-Care Instructions: Abdominal Pain (ED) Additional Instructions: 1. Tylenol 1000 mg, por v?a oral, cada 6 horas seg?n sea necesario para controlar el dolor. No exceda los 4000 mg en 24 horas. 2. Ibuprofeno 400 mg, por v?a oral con leche o alimentos, cada 6 horas seg?n sea necesario para controlar el dolor. 3. Se aplica annelise almohadilla t?rmica en el ?karyn de la incomodidad para un alivio adicional de los s?ntomas. 4. Realice un seguimiento con kern proveedor de atenci?n primaria para annelise reevaluaci?n y un diagn?stico ambulatorio adicional, seg?n se indique. Regrese a la divina de emergencias por un empeoramiento gabriela de los s?ntomas. Prescriptions: No Action lorazepam [Ativan] 0.5 mg tablet 0.5 mg PO BEDTIME PRN (Reason: anxiety) Qty: 14 RF: 0 metoclopramide HCl [Reglan] 10 mg tablet 10 mg PO Q6H PRN (Reason: nausea and vomiting) Qty: 14 RF: 0 cyclobenzaprine 5 mg tablet 5 mg PO TID PRN (Reason: muscle spasm) Qty: 10 RF: 0 ibuprofen 600 mg tablet 600 mg PO Q6H PRN (Reason: pain) Qty: 30 RF: 0 azithromycin [Zithromax Z-Trevor] 250 mg tablet 250 mg PO DAILY 5 Days Qty: 5 RF: 0 erythromycin 5 mg/gram (0.5 %) ointment 0.5 inch ophthalmic (eye) TID Qty: 3.5 RF: 0 clindamycin HCl 300 mg capsule 300 mg PO TID 10 Days Qty: 30 RF: 0 ibuprofen 800 mg tablet 800 mg PO Q8H PRN (Reason: pain) Qty: 14 RF: 0 oxycodone-acetaminophen [Percocet] 5-325 mg tablet 1 tab PO Q6H PRN (Reason: pain) Qty: 10 RF: 0 Referrals: Dustin Gutierrez MD [Primary Care Provider] - 2 days (Patient with suprapubic and lower pelvic pain without acute findings on workup.) Print Language: Citizen Of [place] COUNT INCLUDES THE [facility] Past Medical History Source: nursing notes reviewed Medical History Anemia Anxiety HTN (hypertension) Surgical History H/O: Social History Social History Alcohol intake: never Advance Directives: No Advance Directives Information Provided: Yes Patient : No
[2021-05-25] MEDS: iohexoL 350 MG/ML 100 ML INFUS..BTL 85 ML IV (23:22)
== END 2021-05-26 00:53 | disposition home or self-care (01) ==
PROVIDERS: Emergency Provider Student in an Organized Health Care Education/Training Program; PCP Internal Medicine
DX: R10.31 Right lower quadrant pain (principal); Z79.899 Other long term (current) drug therapy
CPT/HCPCS: 36415; 74177; 80053; 81003; 81025; 85025; 99284; Q9967

== ENCOUNTER 2021-05-31 13:39 | Outpatient (REF) | payer OTHER, SELFPAY | END 2021-05-31 13:40 | disposition home or self-care (01) | LOC: HO.LAB 13:39 | PROVIDERS: Visit Provider Internal Medicine | DX: Z20.822 Contact with and (suspected) exposure to COVID-19 (principal) | CPT/HCPCS: C9803; U0003; U0005 ==

== ENCOUNTER 2021-07-02 19:00 | Emergency (ER) | payer OTHER, SELFPAY ==
[2021-07-02 20:07] VITALS: BP 164/83; PULSE 62; RESP 16; TEMP 37.1; O2SAT 100; BMI 23.4
[2021-07-02 20:28] LABS: IDNOW Serial# 08D9AD1C; Strep A Nucleic Acid Negative (Negative)
[2021-07-02 20:34] LABS: COVID-19 Test Negative (Negative)
--- NOTE | 2021-07-02 20:54 | ED.GENADULT ---
HPI - General Adult General Chief complaint: Upper Respiratory Symptoms Stated complaint: sore throat Time Seen by Provider: 07/02/21 20:51 Source: patient Mode of arrival: ambulatory Limitations: language barrier History of Present Illness HPI narrative: Patient history of anxiety complaining of difficulty swallowing since yesterday since that whenever she eats solid she throws up but she can drink liquids already called her primary care doctor started on Zofran for nausea patient also complains that she is very anxious not able to sleep in the night also she was told that she has hyper thyroidism but her TSH was normal 2 months ago not on any medication no fever no chills no abdominal pain Related Data Previous Rx's Medication Instructions Recorded azithromycin 250 mg tablet 250 mg PO DAILY 5 Days #5 tab 06/14/20 (Zithromax Z-Trevor) clindamycin HCl 300 mg capsule 300 mg PO TID 10 Days #30 cap 08/15/20 erythromycin 5 mg/gram (0.5 %) eye 0.5 inch OPHTHALMIC (EYE) TID #3.5 08/15/20 ointment g ibuprofen 800 mg tablet 800 mg PO Q8H PRN #14 tab 08/15/20 oxycodone-acetaminophen 5 mg-325 1 tab PO Q6H PRN #10 tab 08/15/20 mg tablet (Percocet) lorazepam 0.5 mg tablet (Ativan) 0.5 mg PO BEDTIME PRN #14 tab 10/31/20 metoclopramide HCl 10 mg tablet 10 mg PO Q6H PRN #14 tab 02/22/21 (Reglan) cyclobenzaprine 5 mg tablet 5 mg PO TID PRN #10 tab 05/10/21 ibuprofen 600 mg tablet 600 mg PO Q6H PRN #30 tab 05/10/21 lorazepam 1 mg tablet (Ativan) 1 mg PO BID PRN #14 tab 07/02/21 Allergies Allergy/AdvReac Type Severity Reaction Status Date / Time amoxicillin [AMOXICILLIN] Allergy Unknown UNKNOWN Verified 07/02/21 20:12 Review of Systems Review of Systems: Yes all other systems are reviewed and are negative [facility] Past Medical History Medical History Anemia Anxiety HTN (hypertension) Surgical History H/O: Social History Social History Alcohol intake: never Advance Directives: No Advance Directives Information Provided: Yes Patient : No Physical Exam Vital Signs: Vital Signs: Last Vital Signs Temp 98.8 F 07/02/21 20:07 Pulse 62 07/02/21 20:07 Resp 16 07/02/21 20:07 BP 164/83 H 07/02/21 20:07 Pulse Ox 100 07/02/21 20:07 Body Mass Index 23.4 Appearance: Alert. Oriented X3. No acute distress. Anxious Eyes: No pallor icterus ENT: Pharynx normal. Oral Mucosa moist Neck: Normal inspection. Neck supple. CVS: Normal heart rate and rhythm. Pulses normal. Respiratory: No respiratory distress. Equal air entry bilateral, no wheezing/rales/rhonchi Abdomen: Soft and nontender. Bowel sounds are present, no mass palpable, Skin: Skin warm and dry. Normal skin color. Normal skin turgor. Extremities: No lower extremity edema. No calf tenderness Neuro: Oriented X 3. Medical Decision Making MDM Narrative Medical decision making narrative: Patient seems very anxious able to eat crackers and had liquids in the ER discharge patient home on Ativan Lab Data Labs: Lab Results 07/02/21 07/02/21 Range/Units 20:13 20:13 COVID-19 (RAFAEL) Negative (Negative) COVID-19 Clin Com See Note S. pyogenes GrpA HUA Negative (Negative) Discharge Plan Discharge Clinical Impression: Anxiety Patient Disposition: Home, Self-Care Instructions: Anxiety (ED) Additional Instructions: Your throat spasms likely from anxiety Take medication for anxiety once or twice daily Garcia garganta tiene espasmos probablemente por ansiedad [place] medicamentos para la ansiedad annelise o dos veces al d?a. Prescriptions: New lorazepam [Ativan] 1 mg tablet 1 mg PO BID PRN (Reason: anxiety/sleep) Qty: 14 RF: 0 No Action lorazepam [Ativan] 0.5 mg tablet 0.5 mg PO BEDTIME PRN (Reason: anxiety) Qty: 14 RF: 0 metoclopramide HCl [Reglan] 10 mg tablet 10 mg PO Q6H PRN (Reason: nausea and vomiting) Qty: 14 RF: 0 cyclobenzaprine 5 mg tablet 5 mg PO TID PRN (Reason: muscle spasm) Qty: 10 RF: 0 ibuprofen 600 mg tablet 600 mg PO Q6H PRN (Reason: pain) Qty: 30 RF: 0 azithromycin [Zithromax Z-Trevor] 250 mg tablet 250 mg PO DAILY 5 Days Qty: 5 RF: 0 erythromycin 5 mg/gram (0.5 %) ointment 0.5 inch ophthalmic (eye) TID Qty: 3.5 RF: 0 clindamycin HCl 300 mg capsule 300 mg PO TID 10 Days Qty: 30 RF: 0 ibuprofen 800 mg tablet 800 mg PO Q8H PRN (Reason: pain) Qty: 14 RF: 0 oxycodone-acetaminophen [Percocet] 5-325 mg tablet 1 tab PO Q6H PRN (Reason: pain) Qty: 10 RF: 0 Interventions: ED Discharge Assessment Last Done: 07/02/21 21:37 Discharge Date/Time: 07/02/21 21:38 Print Language: [place]ib[place]ian
[2021-07-02] MEDS: LORazepam 1 MG TABLET PO (21:37)
== END 2021-07-02 21:38 | disposition home or self-care (01) ==
PROVIDERS: Emergency Provider Internal Medicine
DX: F41.1 Generalized anxiety disorder (principal); F43.0 Acute stress reaction; R13.10 Dysphagia, unspecified; Z20.822 Contact with and (suspected) exposure to COVID-19; Z79.899 Other long term (current) drug therapy
CPT/HCPCS: 36415; 87635; 87651; 99283

== ENCOUNTER 2021-07-16 16:13 | Emergency (ER) | payer OTHER, SELFPAY ==
--- NOTE | ~2021-07-16 | US_ITS ---
EXAMINATION: US ABDOMEN LIMITED CLINICAL INFORMATION: Gallbladder. Pain in upper abdomen. COMPARISON: CT abdomen/pelvis dated 05/25/2021. Abdominal ultrasound dated 03/12/2020. TECHNIQUE: Real-time imaging of the right upper quadrant abdominal viscera. FINDINGS: GALLBLADDER: Contracted. Redemonstration of a gallbladder wall polyp measuring up to 0.5 cm, not significantly changed. The gallbladder wall is at the upper limits of normal in thickness, likely due to underdistention. No cholelithiasis or pericholecystic free fluid to suggest acute cholecystitis. COMMON BILE DUCT: Normal in caliber measuring 0.2 cm in diameter. US/US abdomen limited IMPRESSION: Stable gallbladder wall polyp. The gallbladder wall is nondistended with the wall thickness at the upper limits of normal. No cholelithiasis or pericholecystic free fluid to suggest acute cholecystitis.
[2021-07-16 16:29] VITALS: BP 156/87; PULSE 110; RESP 18; TEMP 36.9; O2SAT 99; BMI 29.5
--- NOTE | 2021-07-16 17:49 | ED.ABDPAIN ---
HPI - Abdominal Pain General Chief Complaint: Abdominal Pain Stated Complaint: vomiting and diarrhea,abd pain Time Seen by Provider: 07/16/21 17:49 Source: patient Mode of arrival: ambulatory Limitations: no limitations History of Present Illness HPI narrative: Patient has significant abdominal complaints had some [place] food earlier today, vomited 4 times and had 3 times diarrhea complaining of epigastric pain. Had similar pain few months ago. No fever no chills Related Data Previous Rx's Medication Instructions Recorded azithromycin 250 mg tablet 250 mg PO DAILY 5 Days #5 tab 06/14/20 (Zithromax Z-Trevor) clindamycin HCl 300 mg capsule 300 mg PO TID 10 Days #30 cap 08/15/20 erythromycin 5 mg/gram (0.5 %) eye 0.5 inch OPHTHALMIC (EYE) TID #3.5 08/15/20 ointment g ibuprofen 800 mg tablet 800 mg PO Q8H PRN #14 tab 08/15/20 oxycodone-acetaminophen 5 mg-325 1 tab PO Q6H PRN #10 tab 08/15/20 mg tablet (Percocet) lorazepam 0.5 mg tablet (Ativan) 0.5 mg PO BEDTIME PRN #14 tab 10/31/20 metoclopramide HCl 10 mg tablet 10 mg PO Q6H PRN #14 tab 02/22/21 (Reglan) cyclobenzaprine 5 mg tablet 5 mg PO TID PRN #10 tab 05/10/21 ibuprofen 600 mg tablet 600 mg PO Q6H PRN #30 tab 05/10/21 lorazepam 1 mg tablet (Ativan) 1 mg PO BID PRN #14 tab 07/02/21 ondansetron 4 mg disintegrating 4 mg PO Q6-8H PRN #7 tab 07/16/21 tablet Allergies Allergy/AdvReac Type Severity Reaction Status Date / Time amoxicillin [AMOXICILLIN] Allergy Unknown UNKNOWN Verified 07/02/21 20:12 Review of Systems Review of Systems Yes all other systems are reviewed and are negative Physical Exam Vital Signs: Vital Signs: Last Vital Signs Temp 98.4 F 07/16/21 16:29 Pulse 110 H 07/16/21 16:29 Resp 18 07/16/21 16:29 BP 156/87 H 07/16/21 16:29 Pulse Ox 99 07/16/21 16:29 Body Mass Index 29.5 Appearance: Alert. Oriented X3. No acute distress. Eyes: PERRLA, No Nystagmus ENT: Pharynx normal. Oral Mucosa moist Neck: Normal inspection. Neck supple. CVS: Normal heart rate and rhythm. Pulses normal. Respiratory: No respiratory distress. Equal air entry bilateral, no wheezing/rales/rhonchi Abdomen: Soft , epigastric tenderness, Bowel sounds are present, no mass palpable, no CVA tenderness Skin: Skin warm and dry. Normal skin color. Normal skin turgor. Extremities: No lower extremity edema. No calf tenderness Neuro: Oriented X 3. MDM - Abdominal Pain MDM Narrative Medical decision making narrative: Patient has stable labs ultrasound negative for cholecystitis/ cholelithiasis or suicide patient feeling better after Zofran taking p.o. fluid discharge patient Lab Data Attestation: I reviewed the patient's lab results. Result diagrams: 07/16/21 17:49 07/16/21 17:49 Labs: Lab Results 07/16/21 07/16/21 Range/Units 17:49 17:49 WBC 8.3 (4.8-10.8) X10*3/uL RBC 5.22 (4.20-5.50) X10*6/uL Hgb 11.7 L (12.0-16.0) g/dl Hct 37.9 (37.0-47.0) % MCV 72.6 L (80.0-98.0) fL MCH 22.4 L (27.0-33.0) pg MCHC 30.9 L (31.0-35.0) g/dl RDW 15.8 (11.0-16.0) % Plt Count 292 (160-400) X10*3/uL MPV 11.3 (9.4-12.3) fL Immature Gran % (Auto) 0.2 (0.0-0.4) % Neut % (Auto) 62.3 (45-73) % Lymph % (Auto) 26.8 (20-40) % [place] % (Auto) 7.8 (2-11) % Eos % (Auto) 2.5 (0-4) % Baso % (Auto) 0.4 (0-2) % Lymph # (Auto) 2.2 (1.2-4.9) X10*3/uL [place] # (Auto) 0.7 (0.1-1.2) X10*3/uL Eos # (Auto) 0.2 (0.0-0.4) X10*3/uL Baso # (Auto) 0.0 (0.0-0.2) X10*3/uL Abs Immat Gran (auto) 0.02 (0.00-0.03) X10*3/uL Absolute Neuts (auto) 5.2 (2.0-8.3) x10*3/uL Absolute Nucleated RBC 0.000 (0.0-0.012) X10*3/uL Nucleated RBC % (auto) 0.0 (0.0-0.2) /100WBC Sodium 138 (135-145) mmol/L Potassium 4.4 (3.3-5.1) mmol/L Chloride 101 (96-108) mmol/L Carbon Dioxide 30 H (22-29) mmol/L Anion Gap 11 L (12-20) BUN 6 L (9-16) mg/dL Creatinine 0.68 (0.5-1.4) mg/dL Estim Creat Clear Calc 107.3 Estimated GFR > 60 Random Glucose 136 H (60-115) mg/dL Calcium 9.4 D (8.4-10.2) mg/dL Total Bilirubin 0.2 (0.0-1.0) mg/dL AST 18 (5-31) U/L ALT 22 (0-31) U/L Alkaline Phosphatase 105 (39-117) U/L Total Protein 7.3 (6.5-8.0) g/dL Albumin 4.4 (3.5-5.0) g/dL Lipase 49 (8-78) U/L Discharge Plan Discharge Clinical Impression: Gastroenteritis Patient Disposition: Home, Self-Care Instructions: Gastroenteritis (ED) Additional Instructions: Drink plenty of fluid Zofran for nausea Your ultrasound negative for gallstones Maricarmen mucho l?quido Zofran para las n?useas Garcia ecograf?a negativa para c?lculos biliares Prescriptions: New ondansetron 4 mg tablet,disintegrating 4 mg PO Q6-8H PRN (Reason: nausea and vomiting) Qty: 7 RF: 0 No Action lorazepam [Ativan] 0.5 mg tablet 0.5 mg PO BEDTIME PRN (Reason: anxiety) Qty: 14 RF: 0 metoclopramide HCl [Reglan] 10 mg tablet 10 mg PO Q6H PRN (Reason: nausea and vomiting) Qty: 14 RF: 0 cyclobenzaprine 5 mg tablet 5 mg PO TID PRN (Reason: muscle spasm) Qty: 10 RF: 0 ibuprofen 600 mg tablet 600 mg PO Q6H PRN (Reason: pain) Qty: 30 RF: 0 azithromycin [Zithromax Z-Trevor] 250 mg tablet 250 mg PO DAILY 5 Days Qty: 5 RF: 0 erythromycin 5 mg/gram (0.5 %) ointment 0.5 inch ophthalmic (eye) TID Qty: 3.5 RF: 0 clindamycin HCl 300 mg capsule 300 mg PO TID 10 Days Qty: 30 RF: 0 ibuprofen 800 mg tablet 800 mg PO Q8H PRN (Reason: pain) Qty: 14 RF: 0 oxycodone-acetaminophen [Percocet] 5-325 mg tablet 1 tab PO Q6H PRN (Reason: pain) Qty: 10 RF: 0 lorazepam [Ativan] 1 mg tablet 1 mg PO BID PRN (Reason: anxiety/sleep) Qty: 14 RF: 0 Print Language: Slovak ON LICENSE OF [facility] Past Medical History Medical History Anemia Anxiety HTN (hypertension) Surgical History H/O: Social History Social History Alcohol intake: never Advance Directives: No Advance Directives Information Provided: No Patient : No
[2021-07-16 17:55] LABS: MANUAL DIFF FLAG NO
[2021-07-16 18:10] LABS: Basophils Percent Auto 0.4 % (0-2); Eosinophils Absolute Auto 0.2 X10*3/uL (0.0-0.4); Eosinophils Percent Auto 2.5 % (0-4); Hematocrit 37.9 % (37.0-47.0); Hemoglobin 11.7 g/dl (12.0-16.0); Imm Gran Abs Auto 0.02 X10*3/uL (0.00-0.03); Imm Gran Pct Auto 0.2 % (0.0-0.4); Lymphocytes Absolute Auto 2.2 X10*3/uL (1.2-4.9); Lymphocytes Percent Auto 26.8 % (20-40); Mean Corpuscular HGB Conc 30.9 g/dl (31.0-35.0); Mean Corpuscular Hemoglobin 22.4 pg (27.0-33.0); Mean Corpuscular Volume 72.6 fL (80.0-98.0); Mean Platelet Volume 11.3 fL (9.4-12.3); Monocytes Absolute Auto 0.7 X10*3/uL (0.1-1.2); Monocytes Percent Auto 7.8 % (2-11); Neutrophils Absolute Auto 5.2 x10*3/uL (2.0-8.3); Neutrophils Percent Auto 62.3 % (45-73); Platelet Count 292 X10*3/uL (160-400); Red Blood Count 5.22 X10*6/uL (4.20-5.50); Red Cell Distribution Width 15.8 % (11.0-16.0); White Blood Count 8.3 X10*3/uL (4.8-10.8)
[2021-07-16 18:12] LABS: Alanine Aminotransferase 22 U/L (0-31); Albumin Level 4.4 g/dL (3.5-5.0); Alkaline Phosphatase 105 U/L (39-117); Anion Gap 11 (12-20); Aspartate Amino Transferase 18 U/L (5-31); Bilirubin Total 0.2 mg/dL (0.0-1.0); Blood Urea Nitrogen 6 mg/dL (9-16); Calcium 9.4 mg/dL (8.4-10.2); Carbon Dioxide 30 mmol/L (22-29); Chloride 101 mmol/L (96-108); Creatinine Clr Calc Pharmacy 107.3; Estimated Glomerular Filt Rate > 60; Glucose Random 136 mg/dL (60-115); Lipase 49 U/L (8-78); Potassium 4.4 mmol/L (3.3-5.1); Sodium 138 mmol/L (135-145); Total Protein 7.3 g/dL (6.5-8.0)
[2021-07-16] MEDS: Ondansetron ODT 4 MG TAB.RAPDIS TRANSLINGU (18:20)
[2021-07-16] MEDS: Magnesium Hydrox/Alum Hydrox 30 ML ORAL.SUSP PO (18:21)
== END 2021-07-16 19:50 | disposition home or self-care (01) ==
PROVIDERS: Emergency Provider Internal Medicine; PCP Internal Medicine
DX: K52.9 Noninfective gastroenteritis and colitis, unspecified (principal); R10.13 Epigastric pain; R11.10 Vomiting, unspecified
CPT/HCPCS: 36415; 76705; 80053; 83690; 85025; 99283; 99284

== ENCOUNTER 2021-10-05 03:46 | Emergency (ER) | payer OTHER, SELFPAY ==
[2021-10-05 03:51] VITALS: BP 190/104; PULSE 82; RESP 16; TEMP 37.1; O2SAT 99; BMI 27.1
[2021-10-05 04:15] LABS: Appearance Urine HAZY; Color Urine DK YELLOW; Glucose Urine UA 100 MG/DL (NEG); Leukocyte Esterase Urine 3+ (NEG); Nitrite Urine POS (NEG); PH 6.5 (5.0-8.0); UACC Culture Trigger YES; Urine Blood 3+ (NEG); Urine Ketones NEG (NEG); Urine Protein 3+ MG/DL (NEG-TRACE)
[2021-10-05 04:21] LABS: RBC Urine 30-49 /HPF (0); WBC Urine 50-75 /HPF (0-4)
[2021-10-05 04:22] LABS: Bacteria Urine 2+ /LPF; Squamous Epithelial Cell Urine 2+ /LPF; WBC Clumps Urine NOTED
--- NOTE | 2021-10-05 04:42 | PC.NURSE ---
Assumed care of pt Pt c/o burning pain with urination and urinary frequency starting yesterday. Pt denies any fevers/n/v but c/o chills Per pt, similar complaint occured 2 years ago and was dx with UTI Pt ambulate to bathroom independently Pt states gave urine sample already Pt nicaraguan speaking. Industrial Engineering used. Will continue to monitor
--- NOTE | 2021-10-05 04:51 | ED.FEMALEGU ---
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 This has been associated with lower pain and chills but denies any nausea or vomiting. Related Data Previous Rx's Medication Instructions Recorded azithromycin 250 mg tablet 250 mg PO DAILY 5 Days #5 tab 06/14/20 (Zithromax Z-Trevor) clindamycin HCl 300 mg capsule 300 mg PO TID 10 Days #30 cap 08/15/20 erythromycin 5 mg/gram (0.5 %) eye 0.5 inch OPHTHALMIC (EYE) TID #3.5 08/15/20 ointment g ibuprofen 800 mg tablet 800 mg PO Q8H PRN #14 tab 08/15/20 oxycodone-acetaminophen 5 mg-325 1 tab PO Q6H PRN #10 tab 08/15/20 mg tablet (Percocet) lorazepam 0.5 mg tablet (Ativan) 0.5 mg PO BEDTIME PRN #14 tab 10/31/20 metoclopramide HCl 10 mg tablet 10 mg PO Q6H PRN #14 tab 02/22/21 (Reglan) cyclobenzaprine 5 mg tablet 5 mg PO TID PRN #10 tab 05/10/21 ibuprofen 600 mg tablet 600 mg PO Q6H PRN #30 tab 05/10/21 lorazepam 1 mg tablet (Ativan) 1 mg PO BID PRN #14 tab 07/02/21 ondansetron 4 mg disintegrating 4 mg PO Q6-8H PRN #7 tab 07/16/21 tablet ciprofloxacin HCl 500 mg tablet 500 mg PO Q12H 5 Days #10 tab 10/05/21 Allergies Allergy/AdvReac Type Severity Reaction Status Date / Time amoxicillin [AMOXICILLIN] Allergy Unknown UNKNOWN Verified 10/05/21 03:50 clavulanic acid Allergy Unknown Unknown Verified 10/05/21 04:01 [From Augmentin] Review of Systems Review of Systems: Pertinent positives and negatives as stated in HPI 10 point review of systems is otherwise negative. [facility] Past Medical History Source: nursing notes reviewed Medical History Anemia Anxiety HTN (hypertension) Surgical History H/O: Social History Social History Alcohol intake: never Advance Directives: No Physical Exam Vital Signs: Vital Signs: Last Vital Signs Temp 98.8 F 10/05/21 03:51 Pulse 67 10/05/21 05:36 Resp 18 10/05/21 05:36 BP 152/98 H 10/05/21 05:36 Pulse Ox 98 10/05/21 05:36 BMI result Body Mass Index 27.1 VITAL SIGNS: Reviewed. GENERAL: Well developed, well nourished, in no acute distress. HEAD: Normocephalic/atraumatic EYES: PERRLA, EOMI OROPHARYNX: no oral lesions noted, posterior pharynx clear LUNGS: Normal breath sounds. No adventitious sounds or accessory muscle use. SpO2<98> CARDIOVASCULAR: Regular rate and rhythm without noted murmurs ABDOMEN: Soft, non-tender, non-distended with bowel sounds, positive CVA tenderness NEUROLOGIC: Alert and oriented x 4. Course Course Course Narrative: 26-year-old female with history and clinical presentation consistent with suspected mild pyelonephritis. On review of urinalysis it is grossly positive for leukocytes, the noted RBCs are likely secondary to patient's current menstruation as there is low clinical suspicion for renal colic. Urine is negative. Patient received initial antibiotics here in the emergency room as well as combination analgesics. She was then discharged home in stable condition. MDM - Female Genitourinary Lab Data Labs: Lab Results 10/05/21 10/05/21 Range/Units 04:06 05:05 Urine Color DK YELLOW Urine Appearance HAZY Urine pH 6.5 (5.0-8.0) Ur Specific [place] 1.010 (1.005-1.025) Urine Protein 3+ H (NEG-TRACE) MG/DL Urine Glucose (UA) 100 H (NEG) MG/DL Urine Ketones NEG (NEG) MG/DL Urine Blood 3+ H (NEG) Urine Nitrite POS H (NEG) Ur Leukocyte Esterase 3+ H (NEG) Urine RBC 30-49 H (0) /HPF Urine WBC 50-75 H (0-4) /HPF Urine WBC Clumps NOTED Ur Squamous Epith Cells 2+ /LPF Urine Bacteria 2+ /LPF Urine Test NEGATIVE (NEGATIVE) Discharge Plan Discharge Clinical Impression: Pyelonephritis Patient Disposition: Home, Self-Care Instructions: Kidney Infection (ED) Additional Instructions: 1. Aumentar la hidrataci?n fluida, especialmente con agua. 2. Tylenol 1000 mg, por v?a oral, cada 6 horas seg?n sea necesario para controlar el dolor. No exceda los 4000 mg dentro de las 24 horas. 3. Ibuprofeno 400 mg, por v?a oral con leche o comida, cada 6 horas seg?n sea necesario para controlar el dolor. 4. Complete todo el ciclo de antibi?ticos. 5. Realice un seguimiento con kern proveedor de atenci?n primaria en los pr?ximos 1 a 2 d?as para annelise reevaluaci?n y un manejo ambulatorio adicional. Regrese a la divina de emergencias por empeoramiento gabriela de los s?ntomas. Prescriptions: New ciprofloxacin HCl 500 mg tablet 500 mg PO Q12H 5 Days Qty: 10 RF: 0 No Action lorazepam [Ativan] 0.5 mg tablet 0.5 mg PO BEDTIME PRN (Reason: anxiety) Qty: 14 RF: 0 metoclopramide HCl [Reglan] 10 mg tablet 10 mg PO Q6H PRN (Reason: nausea and vomiting) Qty: 14 RF: 0 cyclobenzaprine 5 mg tablet 5 mg PO TID PRN (Reason: muscle spasm) Qty: 10 RF: 0 ibuprofen 600 mg tablet 600 mg PO Q6H PRN (Reason: pain) Qty: 30 RF: 0 azithromycin [Zithromax Z-Trevor] 250 mg tablet 250 mg PO DAILY 5 Days Qty: 5 RF: 0 erythromycin 5 mg/gram (0.5 %) ointment 0.5 inch ophthalmic (eye) TID Qty: 3.5 RF: 0 clindamycin HCl 300 mg capsule 300 mg PO TID 10 Days Qty: 30 RF: 0 ibuprofen 800 mg tablet 800 mg PO Q8H PRN (Reason: pain) Qty: 14 RF: 0 oxycodone-acetaminophen [Percocet] 5-325 mg tablet 1 tab PO Q6H PRN (Reason: pain) Qty: 10 RF: 0 ondansetron 4 mg tablet,disintegrating 4 mg PO Q6-8H PRN (Reason: nausea and vomiting) Qty: 7 RF: 0 lorazepam [Ativan] 1 mg tablet 1 mg PO BID PRN (Reason: anxiety/sleep) Qty: 14 RF: 0 Interventions: ED Discharge Assessment Last Done: 10/05/21 05:47 Discharge Date/Time: 10/05/21 05:47 Print Language: Taiwanese
[2021-10-05 05:14] LABS: UPreg QC Valid YES; Urine Pregnancy NEGATIVE (NEGATIVE)
[2021-10-05 05:36] VITALS: BP 152/98; PULSE 67; RESP 18; O2SAT 98
[2021-10-05] MEDS: Acetaminophen 325 MG TABLET 975 MG PO (05:40)
[2021-10-05] MEDS: levoFLOXacin 500 MG TABLET PO (05:40)
[2021-10-05] MEDS: Ketorolac Tromethamine 30 MG/ML VIAL 15 MG IM (05:40)
== END 2021-10-05 05:47 | disposition home or self-care (01) ==
PROVIDERS: Emergency Provider Student in an Organized Health Care Education/Training Program
DX: N12 Tubulo-interstitial nephritis, not specified as acute or chronic (principal); R30.0 Dysuria; R35.0 Frequency of micturition; Z79.899 Other long term (current) drug therapy
CPT/HCPCS: 81001; 81025; 87086; 96372; 99283; 99284; J1885

== ENCOUNTER 2021-10-08 05:58 | Emergency (ER) | payer OTHER, SELFPAY ==
[2021-10-08 06:27] VITALS: BP 140/71; PULSE 80; RESP 16; TEMP 37.1; O2SAT 99; BMI 27.4
[2021-10-08 06:43] LABS: Appearance Urine HAZY; Color Urine YELLOW; Glucose Urine UA NEG (NEG); Leukocyte Esterase Urine 2+ (NEG); Nitrite Urine NEG (NEG); Specific Gravity - Urine 1.015 (1.005-1.025); UACC Culture Trigger YES; Urine Blood 3+ (NEG); Urine Ketones NEG (NEG); Urine Protein NEG (NEG-TRACE)
[2021-10-08 06:45] LABS: UPreg QC Valid YES; Urine Pregnancy NEGATIVE (NEGATIVE)
[2021-10-08 06:54] VITALS: BP 133/67; PULSE 54; RESP 12; TEMP 36.8; O2SAT 99
--- NOTE | 2021-10-08 06:58 | ED_ITS ---
HPI - Female Genitourinary General Chief complaint: Urogenital-Female Stated complaint: painful urination, lower back pain, fever Time Seen by Provider: 10/08/21 06:16 Source: patient Mode of arrival: ambulatory Limitations: no limitations History of Present Illness HPI Narrative: Right flank pain for 5 days. The pain is constant, squeezing, associated with stomach bloating, and abdominal pain. The pain is worse with bending, nothing improves the pain. Patient states she had a fever at home, with chills, tem perature was 102. this is the second fever that she had, she has dysuria, frequency, denies . Patient with prior history of pyelonephritis. patient was in this ED 3 days prior and told she had pyeloniphritis but she has not taken any antibiotics. MD elicited complaint: dysuria Pertinent past history: recurrent UTIs and pyelonephritis Onset (ago): day(s) Urinary symptoms: Dysuria and Flank Pain Related Data Previous Rx's Medication Instructions Recorded azithromycin 250 mg tablet 250 mg PO DAILY 5 Days #5 tab 06/14/20 (Zithromax Z-Trevor) clindamycin HCl 300 mg capsule 300 mg PO TID 10 Days #30 cap 08/15/20 erythromycin 5 mg/gram (0.5 %) eye 0.5 inch OPHTHALMIC (EYE) TID 08/15/20 #3.5 ointment g ibuprofen 800 mg tablet 800 mg PO Q8H PRN #14 tab 08/15/20 oxycodone-acetaminophen 5 mg-325 1 tab PO Q6H PRN #10 tab 08/15/20 mg tablet (Percocet) lorazepam 0.5 mg tablet (Ativan) 0.5 mg PO BEDTIME PRN #14 tab 10/31/20 metoclopramide HCl 10 mg tablet 10 mg PO Q6H PRN #14 tab 02/22/21 (Reglan) cyclobenzaprine 5 mg tablet 5 mg PO TID PRN #10 tab 05/10/21 ibuprofen 600 mg tablet 600 mg PO Q6H PRN #30 tab 05/10/21 lorazepam 1 mg tablet (Ativan) 1 mg PO BID PRN #14 tab 07/02/21 ondansetron 4 mg disintegrating 4 mg PO Q6-8H PRN #7 tab 07/16/21 tablet ciprofloxacin HCl 500 mg tablet 500 mg PO Q12H 5 Days #10 tab 10/05/21 cefpodoxime 100 mg tablet 100 mg PO BID #20 tab 10/08/21 Allergies Allergy/AdvReac Type Severity Reaction Status Date / Time amoxicillin [AMOXICILLIN] Allergy Unknown UNKNOWN Verified 10/05/21 03:50 clavulanic acid Allergy Unknown Unknown Verified 10/05/21 04:01 [From Augmentin] Review of Systems Verdana 4l Constitutional: Verdana 4d Constitutional: Verdana 4d Verdana 4d Reports no additional constitutional complaints Verdana 4l Eyes: Verdana 4d Verdana 4d Eyes: Verdana 4d Reports no additional eye complaints Verdana 4l ENT: Verdana 4d Denies dizziness Verdana 4l Cardiovascular: Verdana 4d Cardiovascular: Verdana 4d Verdana 4d Reports no additional cardiovascular complaints Verdana 4l Respiratory: Verdana 4d Verdana 4d Respiratory: Verdana 4d Reports as per HPI Verdana 4l Gastrointestinal: Verdana 4d Gastrointestinal: Verdana 4d Verdana 4d Reports no additional gastrointestinal complaints Verdana 4l Genitourinary: Verdana 4d Verdana 4d Genitourinary: Verdana 4d Reports no additional female genitourinary complaints Verdana 4l Musculoskeletal: Verdana 4d Musculoskeletal: Verdana 4d Verdana 4d Reports no additional musculoskeletal complaints Verdana 4l Integumentary/Breasts: Verdana 4d Skin/Breast: Verdana 4d Verdana 4d Denies rash Verdana 4l Neurologic: Verdana 4d Reports system reviewed and no additional complaints, except as documented, Denies dizziness and Denies Sensory deficit (Neuro) Verdana 4l Psychiatric: Verdana 4d Verdana 4d Psychiatric: Verdana 4d Denies anxiety PMFSH Past Medical History Medical History Anemia Anxiety HTN (hypertension) Surgical History H/O: Social History Social History Alcohol intake: never Patient Tobacco Use Status: Never used Tobacco Use of substances other than those prescribed or required for medical reasons: No Advance Directives: No Advance Directives Information Provided: No Physical Exam Verdana 4l Vital Signs: Verdana 4d Verdana 4d Vital Signs: Verdana 4d Verdana 4Bd Last Vital Signs Verdana 4d Driller'S Assistant New 4d Driller'S Assistant New 4d Temp 98.2 F 10/08/21 06:54 Driller'S Assistant New 4d Pulse 63 10/08/21 08:34 Driller'S Assistant New 4d Resp 14 10/08/21 08:34 BP 124/70 10/08/21 08:34 Pulse Ox 99 10/08/21 08:34 BMI result Body Mass Index 27.4 Const: General: healthy appearing Nutritional Appearance: average body habitus Orientation/consciousness: oriented to person and patient oriented x3 Limitations: no limitations HENMT: Head: Yes normal to inspection Ears: external ears normal General nose exam: Normal external nose present Mouth: Normal oral and palatal mucosa present and oropharynx normal Throat: Yes posterior oropharynx normal Eyes: General: appearance normal, both eyes and all related structures Neck: Other: supple Neck: Yes normal visual inspection Chest: Chest palpation & inspection: normal inspection of the chest Resp: Auscultation: clear to auscultation bilaterally Cardio: Jugular venous distension: no JVD Rate: regular rate Rhythm: regular rhythm Heart sounds: S1 normal heart sound present and S2 normal heart sound present GI: Other: bilateral lower abdominal pain Auscultation: normal bowel sounds Back/Spine/Pelvis: Other: right greater than left CVAT Skin: General skin exam: no rashes or lesions noted Neuro: General: oriented to person and patient oriented x3 Cranial nerves: Yes CN's II-XII intact bilaterally Motor exam (neuro): 5/5 motor strength present throughout Sensory Exam: No Sensory deficit (Neuro) Extrem: General: Yes normal to inspection Psych: Appearance: grossly normal Course Reevaluation(s) Reevaluation #1: Patient with known pyelonephritis, non compliant with abx, today looking well will treat with vantin as opposed to fluroquinolone. Labs normal except for UA, vitals stable Time: 08:55 MDM - Female Genitourinary Lab Data Result diagrams: 10/08/21 07:35 10/08/21 07:35 Labs: Lab Results 10/08/21 10/08/21 10/08/21 Range/Units 06:39 06:39 07:35 WBC 12.1 H (4.8-10.8) X10*3/uL RBC 5.41 (4.20-5.50) X10*6/uL Hgb 12.4 (12.0-16.0) g/dl Hct 40.5 (37.0-47.0) % MCV 74.9 L (80.0-98.0) fL MCH 22.9 L (27.0-33.0) pg MCHC 30.6 L (31.0-35.0) g/dl RDW 15.9 (11.0-16.0) % Plt Count 299 (160-400) X10*3/uL MPV 11.4 (9.4-12.3) fL Immature Gran % (Auto) 0.3 (0.0-0.4) % Neut % (Auto) 65.2 (45-73) % Lymph % (Auto) 24.9 (20-40) % [place] % (Auto) 6.0 (2-11) % Eos % (Auto) 3.1 (0-4) % Baso % (Auto) 0.5 (0-2) % Lymph # (Auto) 3.0 (1.2-4.9) X10*3/uL [place] # (Auto) 0.7 (0.1-1.2) X10*3/uL Eos # (Auto) 0.4 (0.0-0.4) X10*3/uL Baso # (Auto) 0.1 (0.0-0.2) X10*3/uL Abs Immat Gran (auto) 0.04 H (0.00-0.03) X10*3/uL Absolute Neuts (auto) 7.9 (2.0-8.3) x10*3/uL Absolute Nucleated RBC 0.000 (0.0-0.012) X10*3/uL Nucleated RBC % (auto) 0.0 (0.0-0.2) /100WBC Sodium (135-145) mmol/L Potassium (3.3-5.1) mmol/L Chloride (96-108) mmol/L Carbon Dioxide (22-29) mmol/L Anion Gap (12-20) BUN (9-16) mg/dL Creatinine (0.5-1.4) mg/dL Estim Creat Clear Calc Estimated GFR Random Glucose (60-115) mg/dL Calcium (8.4-10.2) mg/dL Urine Color YELLOW Urine Appearance HAZY Urine pH 6.0 (5.0-8.0) Ur Specific [place] 1.015 (1.005-1.025) Urine Protein NEG (NEG-TRACE) MG/DL Urine Glucose (UA) NEG (NEG) MG/DL Urine Ketones NEG (NEG) MG/DL Urine Blood 3+ H (NEG) Urine Nitrite NEG (NEG) Ur Leukocyte Esterase 2+ H (NEG) Urine RBC 10-14 H (0) /HPF Urine WBC 15-29 H (0-4) /HPF Urine WBC Clumps NOTED Ur Squamous Epith Cells 1+ /LPF Urine Bacteria NONE /LPF Urine Test NEGATIVE (NEGATIVE) 10/08/21 Range/Units 07:35 WBC (4.8-10.8) X10*3/uL RBC (4.20-5.50) X10*6/uL Hgb (12.0-16.0) g/dl Hct (37.0-47.0) % MCV (80.0-98.0) fL MCH (27.0-33.0) pg MCHC (31.0-35.0) g/dl RDW (11.0-16.0) % Plt Count (160-400) X10*3/uL MPV (9.4-12.3) fL Immature Gran % (Auto) (0.0-0.4) % Neut % (Auto) (45-73) % Lymph % (Auto) (20-40) % [place] % (Auto) (2-11) % Eos % (Auto) (0-4) % Baso % (Auto) (0-2) % Lymph # (Auto) (1.2-4.9) X10*3/uL [place] # (Auto) (0.1-1.2) X10*3/uL Eos # (Auto) (0.0-0.4) X10*3/uL Baso # (Auto) (0.0-0.2) X10*3/uL Abs Immat Gran (auto) (0.00-0.03) X10*3/uL Absolute Neuts (auto) (2.0-8.3) x10*3/uL Absolute Nucleated RBC (0.0-0.012) X10*3/uL Nucleated RBC % (auto) (0.0-0.2) /100WBC Sodium 139 (135-145) mmol/L Potassium 4.5 (3.3-5.1) mmol/L Chloride 102 (96-108) mmol/L Carbon Dioxide 30 H (22-29) mmol/L Anion Gap 12 (12-20) BUN 12 (9-16) mg/dL Creatinine 0.77 (0.5-1.4) mg/dL Estim Creat Clear Calc 99.2 Estimated GFR > 60 Random Glucose 100 (60-115) mg/dL Calcium 9.9 (8.4-10.2) mg/dL Urine Color Urine Appearance Urine pH (5.0-8.0) Ur Specific [place] (1.005-1.025) Urine Protein (NEG-TRACE) MG/DL Urine Glucose (UA) (NEG) MG/DL Urine Ketones (NEG) MG/DL Urine Blood (NEG) Urine Nitrite (NEG) Ur Leukocyte Esterase (NEG) Urine RBC (0) /HPF Urine WBC (0-4) /HPF Urine WBC Clumps Ur Squamous Epith Cells /LPF Urine Bacteria /LPF Urine Test (NEGATIVE) Discharge Plan Discharge Clinical Impression: Pyelonephritis Patient Disposition: Home, Self-Care Instructions: Kidney Infection (ED) Prescriptions: New cefpodoxime 100 mg tablet 100 mg PO BID Qty: 20 0RF Rx Instructions: must administer with a meal/food No Action lorazepam [Ativan] 0.5 mg tablet 0.5 mg PO BEDTIME PRN (Reason: anxiety) Qty: 14 0RF metoclopramide HCl [Reglan] 10 mg tablet 10 mg PO Q6H PRN (Reason: nausea and vomiting) Qty: 14 0RF cyclobenzaprine 5 mg tablet 5 mg PO TID PRN (Reason: muscle spasm) Qty: 10 0RF ibuprofen 600 mg tablet 600 mg PO Q6H PRN (Reason: pain) Qty: 30 0RF azithromycin [Zithromax Z-Trevor] 250 mg tablet 250 mg PO DAILY 5 Days Qty: 5 0RF erythromycin 5 mg/gram (0.5 %) ointment 0.5 inch ophthalmic (eye) TID Qty: 3.5 0RF clindamycin HCl 300 mg capsule 300 mg PO TID 10 Days Qty: 30 0RF ibuprofen 800 mg tablet 800 mg PO Q8H PRN (Reason: pain) Qty: 14 0RF oxycodone-acetaminophen [Percocet] 5-325 mg tablet 1 tab PO Q6H PRN (Reason: pain) Qty: 10 0RF ondansetron 4 mg tablet,disintegrating 4 mg PO Q6-8H PRN (Reason: nausea and vomiting) Qty: 7 0RF ciprofloxacin HCl 500 mg tablet 500 mg PO Q12H 5 Days Qty: 10 0RF lorazepam [Ativan] 1 mg tablet 1 mg PO BID PRN (Reason: anxiety/sleep) Qty: 14 0RF Referrals: Physician,None [Primary Care Provider] - 1 week
[2021-10-08 07:19] LABS: Squamous Epithelial Cell Urine 1+ /LPF
[2021-10-08 07:20] LABS: WBC Clumps Urine NOTED
[2021-10-08 07:41] LABS: MANUAL DIFF FLAG NO
[2021-10-08 07:43] LABS: Basophils Absolute Auto 0.1 X10*3/uL (0.0-0.2); Basophils Percent Auto 0.5 % (0-2); Eosinophils Absolute Auto 0.4 X10*3/uL (0.0-0.4); Eosinophils Percent Auto 3.1 % (0-4); Hematocrit 40.5 % (37.0-47.0); Hemoglobin 12.4 g/dl (12.0-16.0); Imm Gran Abs Auto 0.04 X10*3/uL (0.00-0.03); Imm Gran Pct Auto 0.3 % (0.0-0.4); Lymphocytes Percent Auto 24.9 % (20-40); Mean Corpuscular HGB Conc 30.6 g/dl (31.0-35.0); Mean Corpuscular Hemoglobin 22.9 pg (27.0-33.0); Mean Corpuscular Volume 74.9 fL (80.0-98.0); Mean Platelet Volume 11.4 fL (9.4-12.3); Monocytes Absolute Auto 0.7 X10*3/uL (0.1-1.2); Neutrophils Absolute Auto 7.9 x10*3/uL (2.0-8.3); Neutrophils Percent Auto 65.2 % (45-73); Platelet Count 299 X10*3/uL (160-400); Red Blood Count 5.41 X10*6/uL (4.20-5.50); Red Cell Distribution Width 15.9 % (11.0-16.0); White Blood Count 12.1 X10*3/uL (4.8-10.8)
[2021-10-08] MEDS: 0.9 % Sodium Chloride 1,000 ML 250 ML IVCONT (07:57)
[2021-10-08] MEDS: cefTRIAXone sodium 1 GM in 0.9 % Sodium Chloride 50 ML IV (07:57)
[2021-10-08 08:03] LABS: Anion Gap 12 (12-20); Blood Urea Nitrogen 12 mg/dL (9-16); Calcium 9.9 mg/dL (8.4-10.2); Carbon Dioxide 30 mmol/L (22-29); Chloride 102 mmol/L (96-108); Creatinine Clr Calc Pharmacy 99.2; Estimated Glomerular Filt Rate > 60; Glucose Random 100 mg/dL (60-115); Potassium 4.5 mmol/L (3.3-5.1); Sodium 139 mmol/L (135-145)
[2021-10-08 08:34] VITALS: BP 124/70; PULSE 63; RESP 14; O2SAT 99
== END 2021-10-08 09:39 | disposition home or self-care (01) ==
PROVIDERS: Emergency Medicine; Emergency Provider Emergency Medicine
DX: N12 Tubulo-interstitial nephritis, not specified as acute or chronic (principal); R30.0 Dysuria; M54.50 Low back pain, unspecified; R50.9 Fever, unspecified; Z79.899 Other long term (current) drug therapy
CPT/HCPCS: 36415; 80048; 81001; 81025; 85025; 87086; 96361; 96374; 99284; J0696

== ENCOUNTER 2021-10-22 11:20 | Emergency (ER) | payer OTHER, SELFPAY ==
[2021-10-22 13:57] VITALS: BP 151/73; PULSE 69; RESP 16; TEMP 37.1; O2SAT 100; BMI 29.9
--- NOTE | 2021-10-22 14:12 | ED.DENTAL ---
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 She states the pain kept her up all night. The pain starts in her left posterior molar and radiates into her cheek into her ear. It is causing her to have throbbing headache. She took ibuprofen with no relief. She denies any dental trauma. She has not been to a dentist in a long time, has been trying to make changes and she moved. She denies any difficulty swallowing, opening or closing her jaw he, fever, chills, facial swelling. MD Complaint: tooth pain Location: Tooth # (16) Onset (ago): day(s) (1) Duration: constant Severity: severe Severity scale (1-10): 10 Relieving factors: nothing Exacerbating factors: chewing and cold Context: poor dental care Treatment prior to arrival: none Related Data Previous Rx's Medication Instructions Recorded azithromycin 250 mg tablet 250 mg PO DAILY 5 Days #5 tab 06/14/20 (Zithromax Z-Trevor) clindamycin HCl 300 mg capsule 300 mg PO TID 10 Days #30 cap 08/15/20 erythromycin 5 mg/gram (0.5 %) eye 0.5 inch OPHTHALMIC (EYE) TID #3.5 08/15/20 ointment g ibuprofen 800 mg tablet 800 mg PO Q8H PRN #14 tab 08/15/20 oxycodone-acetaminophen 5 mg-325 1 tab PO Q6H PRN #10 tab 08/15/20 mg tablet (Percocet) lorazepam 0.5 mg tablet (Ativan) 0.5 mg PO BEDTIME PRN #14 tab 10/31/20 metoclopramide HCl 10 mg tablet 10 mg PO Q6H PRN #14 tab 02/22/21 (Reglan) cyclobenzaprine 5 mg tablet 5 mg PO TID PRN #10 tab 05/10/21 ibuprofen 600 mg tablet 600 mg PO Q6H PRN #30 tab 05/10/21 lorazepam 1 mg tablet (Ativan) 1 mg PO BID PRN #14 tab 07/02/21 ondansetron 4 mg disintegrating 4 mg PO Q6-8H PRN #7 tab 07/16/21 tablet ciprofloxacin HCl 500 mg tablet 500 mg PO Q12H 5 Days #10 tab 10/05/21 cefpodoxime 100 mg tablet 100 mg PO BID #20 tab 10/08/21 clindamycin HCl 300 mg capsule 300 mg PO Q8H 7 Days #21 cap 10/22/21 ibuprofen 600 mg tablet 600 mg PO Q8H PRN #30 tab 10/22/21 tramadol 50 mg tablet 50 mg PO Q8H PRN #8 tab 10/22/21 Allergies Allergy/AdvReac Type Severity Reaction Status Date / Time amoxicillin [AMOXICILLIN] Allergy Unknown UNKNOWN Verified 10/05/21 03:50 clavulanic acid Allergy Unknown Unknown Verified 10/05/21 04:01 [From Augmentin] Review of Systems Constitutional: Constitutional: Denies chills, Denies fever(s) and Reports headache(s) ENT: Reports dental pain, Denies dysphagia, Denies vertigo, Denies dizziness, Denies dry mouth, Reports otalgia, Reports facial pain, Reports headache(s), Denies hoarseness, Reports mouth pain, Denies tinnitus, Denies throat swelling and Denies tongue swelling Cardiovascular: Cardiovascular: Denies chest pain Respiratory: Respiratory: Denies cough Gastrointestinal: Gastrointestinal: Denies dysphagia Musculoskeletal: Musculoskeletal: Denies myalgias Integumentary/Breasts: Skin/Breast: Denies rash Neurologic: Denies vertigo, Denies dizziness and Reports headache(s) Hematologic/Lymphatic: Hematologic/Lymphatic: Denies easy bleeding, Denies easy bruising and Denies lymphadenopathy Allergic/Immunologic: Allergic/Immunologic: Denies throat swelling and Denies tongue swelling PMFSH Past Medical History Medical History Anemia Anxiety HTN (hypertension) Surgical History H/O: Social History Social History Alcohol intake: never Patient Tobacco Use Status: Never used Tobacco Advance Directives: No Advance Directives Information Provided: No Physical Exam Vital Signs: Vital Signs: Last Vital Signs Temp 98.7 F 10/22/21 13:57 Pulse 69 10/22/21 13:57 Resp 16 10/22/21 13:57 BP 151/73 H 10/22/21 13:57 Pulse Ox 100 10/22/21 13:57 BMI result Body Mass Index 29.9 Const: General: cooperative, healthy appearing, comfortable and no acute distress Nutritional Appearance: average body habitus Orientation/consciousness: patient oriented x3 HENMT: Head: Yes normal to inspection, Yes normocephalic and Yes atraumatic Ears: hearing grossly normal bilaterally and TM's normal bilaterally General nose exam: Normal external nose present Face and sinus: Yes normal facial exam and Yes face symmetric Mouth: Normal oral and palatal mucosa present, lip normal, tongue normal, Normal salivary glands and ducts present, oropharynx normal and moist mucous membranes Teeth and gingiva: abnormal tooth and associated gingiva upper left third molar tender and enamel fractured and gingiva abnormal tender Throat: Yes posterior oropharynx normal, Yes tonsils normal and Yes uvula midline Eyes: General: appearance normal, both eyes and all related structures Neck: Neck: Yes normal visual inspection, Yes full ROM and Yes no lymphadenopathy Chest: Chest palpation & inspection: normal inspection of the chest Resp: Effort & Inspection: normal respiratory effort and able to speak in complete sentences Skin: General skin exam: no rashes or lesions noted Neuro: General: patient oriented x3 and gait normal Course Course Course Narrative: 26-year-old female presents to the ER with left upper molar pain since last night. She reports the pain is severe. On examination she has a cracked tooth with tenderness. No evidence of abscess. Will start ppx abx, pain control and refer to dental for further evaluation. Patient provided lsit of emergency dentists in the area and she will start calling today for appointments. Stable for d/c home with dental follow up. Discharge Plan Discharge Clinical Impression: Toothache Patient Disposition: Home, Self-Care Instructions: Toothache (ED) Additional Instructions: Follow up with a dentist DALIA and take all of the medications as prescribed Amisha un seguimiento con un dentista lo antes posible y tome todos los medicamentos seg?n lo prescrito Prescriptions: New ibuprofen 600 mg tablet 600 mg PO Q8H PRN (Reason: pain) Qty: 30 0RF tramadol 50 mg tablet 50 mg PO Q8H PRN (Reason: pain) Qty: 8 0RF clindamycin HCl 300 mg capsule 300 mg PO Q8H 7 Days Qty: 21 0RF No Action lorazepam [Ativan] 0.5 mg tablet 0.5 mg PO BEDTIME PRN (Reason: anxiety) Qty: 14 0RF metoclopramide HCl [Reglan] 10 mg tablet 10 mg PO Q6H PRN (Reason: nausea and vomiting) Qty: 14 0RF cyclobenzaprine 5 mg tablet 5 mg PO TID PRN (Reason: muscle spasm) Qty: 10 0RF ibuprofen 600 mg tablet 600 mg PO Q6H PRN (Reason: pain) Qty: 30 0RF azithromycin [Zithromax Z-Trevor] 250 mg tablet 250 mg PO DAILY 5 Days Qty: 5 0RF erythromycin 5 mg/gram (0.5 %) ointment 0.5 inch ophthalmic (eye) TID Qty: 3.5 0RF clindamycin HCl 300 mg capsule 300 mg PO TID 10 Days Qty: 30 0RF ibuprofen 800 mg tablet 800 mg PO Q8H PRN (Reason: pain) Qty: 14 0RF oxycodone-acetaminophen [Percocet] 5-325 mg tablet 1 tab PO Q6H PRN (Reason: pain) Qty: 10 0RF ondansetron 4 mg tablet,disintegrating 4 mg PO Q6-8H PRN (Reason: nausea and vomiting) Qty: 7 0RF ciprofloxacin HCl 500 mg tablet 500 mg PO Q12H 5 Days Qty: 10 0RF cefpodoxime 100 mg tablet 100 mg PO BID Qty: 20 0RF Rx Instructions: must administer with a meal/food lorazepam [Ativan] 1 mg tablet 1 mg PO BID PRN (Reason: anxiety/sleep) Qty: 14 0RF
[2021-10-22] MEDS: Ketorolac Tromethamine 30 MG/ML VIAL IM (14:57)
[2021-10-22] MEDS: HYDROcodone Bit/Acetam 5/325 TABLET 1 TAB PO (14:58)
== END 2021-10-22 15:13 | disposition home or self-care (01) ==
PROVIDERS: Emergency Provider Emergency Medicine Emergency Medical Services
DX: K08.89 Other specified disorders of teeth and supporting structures (principal); K03.81 Cracked tooth; I10 Essential (primary) hypertension
CPT/HCPCS: 96372; 99284; J1885

== ENCOUNTER 2022-01-26 14:58 | Emergency (ER) | payer OTHER, SELFPAY ==
--- NOTE | 2022-01-26 | ECG_ITS ---
Test Reason : CHEST PAIN W/COUGHING Blood Pressure : / mmHG Vent. Rate : 077 BPM Atrial Rate : 077 BPM P-R Int : 158 ms QRS Dur : 106 ms QT Int : 352 ms P-R-T Axes : 041 034 016 degrees QTc Int : 398 ms Normal sinus rhythm Minimal voltage criteria for LVH, may be normal variant ( R in aVL ) Nonspecific ST abnormality Abnormal ECG When compared with ECG of 02-FEB-2021 09:20, No significant changes seen Referred By: Generic ED Physician Electronically Signed By:RINA BROWN
--- NOTE | ~2022-01-26 | XR_ITS ---
EXAMINATION: XR CHEST CLINICAL INFORMATION: Cough COMPARISON: 02/02/2021 TECHNIQUE: Frontal view of the chest was obtained. FINDINGS: No acute finding. There is no infiltrate. Lung colbert are grossly clear. The cardiac silhouette is comparable. There is no effusion. The hilar regions are comparable. XR/XR chest 1V IMPRESSION: No acute finding.
[2022-01-26 15:07] VITALS: BP 110/71; PULSE 74; RESP 18; TEMP 37; O2SAT 98; BMI 29.9
[2022-01-26 15:36] LABS: COVID-19 Test Positive (Negative); IDNOW Serial# 16C4AD1C
[2022-01-26 15:39] LABS: Influenza A Negative (Negative); Influenza B2 Negative (Negative)
--- NOTE | 2022-01-26 16:14 | ED_ITS ---
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 She reports that she took an at home a COVID-19 test today which was positive. She states that she has been vaccinated for COVID-19 with [employer] x2 last dose in 2020. She did not reports having COVID-19 infection last year. Denies dizziness, lightheadedness, headache, neck pain, neck stiffness, sore throat, difficulty breathing, shortness of breath, dysuria, urinary frequency, generalized weakness. Related Data Previous Rx's Medication Instructions Recorded azithromycin 250 mg tablet 250 mg PO DAILY 5 Days #5 tab 06/14/20 (Zithromax Z-Trevor) clindamycin HCl 300 mg capsule 300 mg PO TID 10 Days #30 cap 08/15/20 erythromycin 5 mg/gram (0.5 %) eye 0.5 inch OPHTHALMIC (EYE) TID #3.5 08/15/20 ointment g ibuprofen 800 mg tablet 800 mg PO Q8H PRN #14 tab 08/15/20 oxycodone-acetaminophen 5 mg-325 1 tab PO Q6H PRN #10 tab 08/15/20 mg tablet (Percocet) lorazepam 0.5 mg tablet (Ativan) 0.5 mg PO BEDTIME PRN #14 tab 10/31/20 metoclopramide HCl 10 mg tablet 10 mg PO Q6H PRN #14 tab 02/22/21 (Reglan) cyclobenzaprine 5 mg tablet 5 mg PO TID PRN #10 tab 05/10/21 ibuprofen 600 mg tablet 600 mg PO Q6H PRN #30 tab 05/10/21 lorazepam 1 mg tablet (Ativan) 1 mg PO BID PRN #14 tab 07/02/21 ondansetron 4 mg disintegrating 4 mg PO Q6-8H PRN #7 tab 07/16/21 tablet ciprofloxacin HCl 500 mg tablet 500 mg PO Q12H 5 Days #10 tab 01/25/22 cefpodoxime 100 mg tablet 100 mg PO BID #20 tab 10/08/21 clindamycin HCl 300 mg capsule 300 mg PO Q8H 7 Days #21 cap 10/22/21 ibuprofen 600 mg tablet 600 mg PO Q8H PRN #30 tab 10/22/21 tramadol 50 mg tablet 50 mg PO Q8H PRN #8 tab 10/22/21 ondansetron 4 mg disintegrating 4 mg PO Q8H PRN #10 tab 01/26/22 tablet Allergies Allergy/AdvReac Type Severity Reaction Status Date / Time amoxicillin [AMOXICILLIN] Allergy Unknown UNKNOWN Verified 10/05/21 03:50 clavulanic acid Allergy Unknown Unknown Verified 10/05/21 04:01 [From Augmentin] Review of Systems Review of Systems: Constitutional: Positive fever. No chills. No weakness. Positive fatigue. ENT/ Mouth: No Ear Pain, no Nasal Congestion, no sore throat, No Rhinorrhea, No Swallowing Difficulty Skin: No rash or itching. Cardiovascular: No chest pain. No palpitations. Respiratory: No shortness of breath. Positive cough. No sputum production. Gastrointestinal: Positive nausea. Positive vomiting. Positive diarrhea. Positive abdominal pain. Genitourinary: No burning micturition. No urinary frequency. Neurologic: No headache. No dizziness. No syncope. No numbness or tingling in the extremities. Musculoskeletal: No muscle pain. No back pain. No joint pain or stiffness. Yes all other systems are reviewed and are negative [facility] [place] Past Medical History Attestation statement: The following information was validated with the patient. Source: old records reviewed Medical History Anemia Anxiety HTN (hypertension) Surgical History H/O: Social History Social History Alcohol intake: never Patient Tobacco Use Status: Never used Tobacco Advance Directives: No Advance Directives Information Provided: No Physical Exam Vital Signs: Vital Signs: Last Vital Signs Temp 98.6 F 01/26/22 15:07 Pulse 74 01/26/22 15:07 Resp 18 01/26/22 15:07 BP 110/71 01/26/22 15:07 Pulse Ox 98 01/26/22 15:07 BMI result Body Mass Index 29.9 Vital signs have been reviewed as normal and appeared to be correct. Blood pressure normal.? Heart rate normal.? Respiration rate normal. Temperature normal.? Oxygen saturation normal. Appearance: Alert.?Oriented to person, place and time. No acute distres s.?Normal affect. Eyes: Pupils equal, round and reactive to light.? ENT: TM normal bilaterally. Pharynx normal.?? Neck: Normal inspection.? Neck supple.??No cervical adenopathy CVS: Heart sounds normal. Normal heart rate and rhythm.? Pulses normal.?? Respiratory: No respiratory distress.? Lung sounds clear to auscultation bilaterally?? Abdomen: Soft and non-tender. Normoactive bowel sounds. Skin: Skin warm and dry.? Normal skin color.? ? Extremities: No lower extremity edema.? Neuro: Moves all extremities spontaneously. Sensation intact bilaterally. No motor deficits. Ambulates with normal steady gait. Course Course Course Narrative: Patient is a 26 year old female with past medical history of HTN, GERD, presenting for evaluation of upper respiratory symptoms. COVID-19 testing positive. Influenza testing negative. At this time history and physical exam not consistent with ACS/PE/pneumonia. Well-appearing, nontoxic, afebrile, no tachycardia or tachypnea/hypoxia. Speaking clear full sentences, ambulatory with steady gait. Discussed conservative treatment including rest, hydration, Tylenol/ibuprofen as needed for fever and body aches, saline nasal spray, humidifier, [id number] cold medication. Benign ABD exam, not consistent with appendicitis, diverticulitis, colitis, symptoms most likely consistent with COVID-19. Patient was given prescription for Zofran to be used as needed for nausea. Advised to follow-up with primary care provider as needed, discussed reasons to return back to the emergency department. All questions were answered. Patient discharged home in stable condition. MDM - URI/Sore Throat Medical Records Attestation: I reviewed the patient's medical records. Lab Data Attestation: I reviewed the patient's lab results. Labs: Lab Results 01/26/22 01/26/22 Range/Units 15:12 15:12 COVID-19 (RAFAEL) Positive A (Negative) COVID-19 Clin Com See Note Influenza Type A (HUA) Negative (Negative) Influenza Type B (HUA) Negative (Negative) Influenza A & B Note See Note Imaging Data Chest x-ray: Radiologist's impression: FINDINGS: No acute finding. There is no infiltrate. Lung colbert are grossly clear. The cardiac silhouette is comparable. There is no effusion. The hilar regions are comparable. XR/XR chest 1V IMPRESSION: No acute finding. ECG Data Attestation: I personally reviewed and interpreted this ECG as follows: ECG interpretation date: 01/26/22 ECG interpretation time: 16:18 Prior ECG tracings: available for review Interpretation: Rate: 78 Rhythm:?NSR, LVH [place]:?normal Normal P waves.? Normal LORE.?? Normal QRS complex.?? ST T wave :??no ST depression, no T wave inversion qTC: 398 prior studies:?January 2021 The study has been interpreted contemporaneously by me. Discharge Plan Discharge Clinical Impression: COVID-19 Patient Disposition: Home, Self-Care Instructions: COVID-19 (Coronavirus Disease 2019) (ED) Additional Instructions: Be sure to rest, stay well hydrated drinking plenty of fluids, eat small frequent meals. Tylenol/ibuprofen can be used as needed for fever/pain. [id number]-sjl-[id number] cold medications may be helpful as well for symptoms. Saline nasal spray, humidifier may be helpful for nasal congestion. Take Zofran as needed every 8 hours for nausea. You may return to the emergency department with any new or worsening symptoms or concerns. Follow-up with your primary care provider as needed. Should remain out of school/ work for at least 5 days and until symptoms have resolved and have been without a fever for 24 hours without the use of Tylenol or ibuprofen. Prescriptions: New ondansetron 4 mg tablet,disintegrating 4 mg PO Q8H PRN (Reason: nausea and vomiting) Qty: 10 0RF No Action lorazepam [Ativan] 0.5 mg tablet 0.5 mg PO BEDTIME PRN (Reason: anxiety) Qty: 14 0RF metoclopramide HCl [Reglan] 10 mg tablet 10 mg PO Q6H PRN (Reason: nausea and vomiting) Qty: 14 0RF cyclobenzaprine 5 mg tablet 5 mg PO TID PRN (Reason: muscle spasm) Qty: 10 0RF ibuprofen 600 mg tablet 600 mg PO Q6H PRN (Reason: pain) Qty: 30 0RF azithromycin [Zithromax Z-Trevor] 250 mg tablet 250 mg PO DAILY 5 Days Qty: 5 0RF erythromycin 5 mg/gram (0.5 %) ointment 0.5 inch ophthalmic (eye) TID Qty: 3.5 0RF clindamycin HCl 300 mg capsule 300 mg PO TID 10 Days Qty: 30 0RF ibuprofen 800 mg tablet 800 mg PO Q8H PRN (Reason: pain) Qty: 14 0RF oxycodone-acetaminophen [Percocet] 5-325 mg tablet 1 tab PO Q6H PRN (Reason: pain) Qty: 10 0RF ondansetron 4 mg tablet,disintegrating 4 mg PO Q6-8H PRN (Reason: nausea and vomiting) Qty: 7 0RF ciprofloxacin HCl 500 mg tablet 500 mg PO Q12H 5 Days Qty: 10 0RF cefpodoxime 100 mg tablet 100 mg PO BID Qty: 20 0RF Rx Instructions: must administer with a meal/food lorazepam [Ativan] 1 mg tablet 1 mg PO BID PRN (Reason: anxiety/sleep) Qty: 14 0RF ibuprofen 600 mg tablet 600 mg PO Q8H PRN (Reason: pain) Qty: 30 0RF tramadol 50 mg tablet 50 mg PO Q8H PRN (Reason: pain) Qty: 8 0RF clindamycin HCl 300 mg capsule 300 mg PO Q8H 7 Days Qty: 21 0RF Interventions: ED Discharge Assessment Last Done: 01/26/22 16:36 Discharge Date/Time: 01/26/22 16:50
== END 2022-01-26 16:50 | disposition home or self-care (01) ==
LOC: HO.ED 16:31
PROVIDERS: Emergency Provider Emergency Medicine
DX: U07.1 COVID-19 (principal); I10 Essential (primary) hypertension; Z79.899 Other long term (current) drug therapy
CPT/HCPCS: 71045; 87502; 87635; 93005; 99282; 99283; 99284

== ENCOUNTER 2022-01-28 12:42 | Outpatient (REF) | payer OTHER, SELFPAY ==
[2022-01-28 13:22] LABS: IDNOW Serial# 08D9AD1C
[2022-01-28 13:23] LABS: COVID-19 Test Positive (Negative)
== END 2022-01-28 12:43 | disposition home or self-care (01) ==
LOC: HO.LAB 12:42
PROVIDERS: Visit Provider Internal Medicine
DX: Z20.822 Contact with and (suspected) exposure to COVID-19 (principal)
CPT/HCPCS: 87635; C9803

== ENCOUNTER 2022-05-03 18:07 | Emergency (ER) | payer OTHER, SELFPAY | END 2022-05-03 20:44 | disposition left against medical advice (07) | PROVIDERS: Emergency Provider Emergency Medicine | DX: M79.10 Myalgia, unspecified site (principal) ==

== ENCOUNTER 2022-05-06 08:10 | Emergency (ER) | payer OTHER, SELFPAY ==
[2022-05-06 09:17] VITALS: BP 162/101; PULSE 78; RESP 16; TEMP 36.4; O2SAT 98; BMI 33.9
--- NOTE | 2022-05-06 09:38 | ED_ITS ---
HPI - Ear Problem General Chief complaint: Ear Problems Stated complaint: ear pain/throat pain Time Seen by Provider: 05/06/22 09:38 Source: patient Mode of arrival: ambulatory Limitations: no limitations History of Present Illness HPI Narrative: 27 yo female with history of HTN, hx pyelonephritis, anxiety, gastroenteritis who presents to the ER for evaluation of left sided ear pain for the last 3 days. She also reports decreased hearing on this side. She denies any drainage. She reports the pain in her left ear radiates into her head and is causing a headache. She also reports left-sided facial numbness. This started yesterday. She has no weakness of her face muscles. She denies any fever or chills. No URI symptoms. She has been using [id number]-[id number] ear drops with no improvement in her symptoms. MD Complaint: ear pain and decreased hearing Location: left ear Duration: constant Severity: severe Relieving factors: nothing Exacerbating factors: position of head and palpation Discharge from ear: no Associated symptoms ear: decreased hearing, headache and external ear tenderness Treatment prior to arrival: eardrops Related Data Previous Rx's Medication Instructions Recorded azithromycin 250 mg tablet 250 mg PO DAILY 5 days #5 tabs 06/14/20 (Zithromax Z-Trevor) clindamycin HCl 300 mg capsule 300 mg PO TID Periorbital 08/15/20 cellulitis 10 days #30 caps erythromycin 5 mg/gram (0.5 %) eye 0.5 inch ophthalmic (eye) TID #3.5 08/15/20 ointment grams ibuprofen 800 mg tablet 800 mg PO Q8H PRN pain #14 tabs 08/15/20 oxycodone-acetaminophen 5 mg-325 1 tab PO Q6H PRN pain #10 tabs 08/15/20 mg tablet (Percocet) lorazepam 0.5 mg tablet (Ativan) 0.5 mg PO BEDTIME PRN anxiety #14 10/31/20 tabs metoclopramide HCl 10 mg tablet 10 mg PO Q6H PRN nausea and 02/22/21 (Reglan) vomiting #14 tabs cyclobenzaprine 5 mg tablet 5 mg PO TID PRN muscle spasm #10 05/10/21 tabs ibuprofen 600 mg tablet 600 mg PO Q6H PRN pain #30 tabs 05/10/21 lorazepam 1 mg tablet (Ativan) 1 mg PO BID PRN anxiety/sleep #14 07/02/21 tabs ondansetron 4 mg disintegrating 4 mg PO Q6-8H PRN nausea and 07/16/21 tablet vomiting #7 tabs ciprofloxacin HCl 500 mg tablet 500 mg PO Q12H 5 days #10 tabs 10/05/21 cefpodoxime 100 mg tablet 100 mg PO BID #20 tabs 10/08/21 clindamycin HCl 300 mg capsule 300 mg PO Q8H 7 days #21 caps 10/22/21 ibuprofen 600 mg tablet 600 mg PO Q8H PRN pain #30 tabs 10/22/21 tramadol 50 mg tablet 50 mg PO Q8H PRN pain #8 tabs 10/22/21 ondansetron 4 mg disintegrating 4 mg PO Q8H PRN nausea and 01/26/22 tablet vomiting #10 tabs ciprofloxacin 0.3 %-dexamethasone 4 drp otic (ears) BID 7 days #7.5 05/06/22 0.1 % ear drops,suspension mL (Ciprodex) ciprofloxacin HCl 500 mg tablet 500 mg PO BID #14 tabs 05/06/22 (Cipro) Allergies Allergy/AdvReac Type Severity Reaction Status Date / Time amoxicillin [AMOXICILLIN] Allergy Unknown UNKNOWN Verified 10/05/21 03:50 clavulanic acid Allergy Unknown Unknown Verified 10/05/21 04:01 [From Augmentin] Review of Systems Review of Systems: Constitutional: No Fever, No Chills ENT/Mouth: No sore throat, No Rhinorrhea, No Swallowing Difficulty, +Otalgia, +Decreased hearing Eyes: No Eye Pain, No Swelling, No Redness Cardiovascular: No Chest Pain, No SOB Respiratory: No Cough, No Sputum Gastrointestinal: No Nausea, No Vomiting, No abdominal Pain Musculoskeletal: No joint pain, No Myalgias Skin: No Skin Lesions, No rash Neuro: No Weakness, + Numbness, No Dizziness, + Headache Heme/Lymph: No Lymphadenopathy PMFSH Past Medical History Medical History Anemia Anxiety HTN (hypertension) Surgical History H/O: Social History Social History Alcohol intake: never Patient Tobacco Use Status: Never used Tobacco Advance Directives: No Advance Directives Information Provided: No Physical Exam Vital Signs: Vital Signs: Last Vital Signs Temp 97.6 F 05/06/22 09:17 Pulse 78 05/06/22 09:17 Resp 16 05/06/22 09:17 BP 162/101 H 05/06/22 09:17 Pulse Ox 98 05/06/22 09:17 O2 Del Method 05/06/22 09:17 BMI result Body Mass Index 33.9 Appearance: Alert. Oriented X3. No acute distress. HEENT: normal external inspection. right EAC with cerumen partially obscuring TM which is normal in appearance. Left EAC erythematous with cerumen impaction. curretted wax to reveal erythematous, bulging TM with effusion. CVS: Normal heart rate and rhythm. Pulses normal. Respiratory: No respiratory distress. Skin: Skin warm and dry. Normal skin color. Normal skin turgor. No rashes. Extremities: normal inspection x4. Neuro: Oriented X 3. No motor deficit. No sensory deficit. CN II-XII intact. Course Course Course Narrative: 19-year-old female presents to the ER for evaluation of left-sided ear pain, decreased hearing. Examination reveals cerumen impaction, cerumen was able to be curetted to visualize an infected tympanic membrane. Her EAC is also very inflamed and erythematous. Her ear drum is intact. Will prescribe Ciprodex and ciprofloxacin for both otitis externa and otitis media. Her left-sided facial numbness is subjective and not reproduced on examination. She has no facial weakness. She is stable for discharge home. Discharge Plan Discharge Clinical Impression: Otitis externa, Otitis media, Bilateral impacted cerumen Patient Disposition: Home, Self-Care Instructions: Otitis Externa (ED), Ear Infection (ED) Additional Instructions: A the prescribed antibiotic as directed, complete the entire course. Use the prescribed antibiotic drop into her ear as directed as well. To not get water in her ear. When you take a shower put a cotton ball in her ear so water does not get in. Do not use Q-tips. Recommend deeper ox drops, these can be found [id number] and help with earwax. Start this after your down with all of her antibiotics and ear drops. Take Tylenol and Motrin as needed for pain and headache. If you develop new or worsening symptoms call 911 or come back to the ER for further evaluation. Prescriptions: New ciprofloxacin-dexamethasone [Ciprodex] 0.3-0.1 % drops,suspension 4 drp otic (ears) BID 7 Days Qty: 7.5 0RF ciprofloxacin HCl [Cipro] 500 mg tablet 500 mg PO BID Qty: 14 0RF No Action lorazepam [Ativan] 0.5 mg tablet 0.5 mg PO BEDTIME PRN (Reason: anxiety) Qty: 14 0RF metoclopramide HCl [Reglan] 10 mg tablet 10 mg PO Q6H PRN (Reason: nausea and vomiting) Qty: 14 0RF cyclobenzaprine 5 mg tablet 5 mg PO TID PRN (Reason: muscle spasm) Qty: 10 0RF ibuprofen 600 mg tablet 600 mg PO Q6H PRN (Reason: pain) Qty: 30 0RF azithromycin [Zithromax Z-Trevor] 250 mg tablet 250 mg PO DAILY 5 Days Qty: 5 0RF erythromycin 5 mg/gram (0.5 %) ointment 0.5 inch ophthalmic (eye) TID Qty: 3.5 0RF clindamycin HCl 300 mg capsule 300 mg PO TID 10 Days Qty: 30 0RF ibuprofen 800 mg tablet 800 mg PO Q8H PRN (Reason: pain) Qty: 14 0RF oxycodone-acetaminophen [Percocet] 5-325 mg tablet 1 tab PO Q6H PRN (Reason: pain) Qty: 10 0RF ondansetron 4 mg tablet,disintegrating 4 mg PO Q6-8H PRN (Reason: nausea and vomiting) Qty: 7 0RF ciprofloxacin HCl 500 mg tablet 500 mg PO Q12H 5 Days Qty: 10 0RF cefpodoxime 100 mg tablet 100 mg PO BID Qty: 20 0RF Rx Instructions: must administer with a meal/food ondansetron 4 mg tablet,disintegrating 4 mg PO Q8H PRN (Reason: nausea and vomiting) Qty: 10 0RF lorazepam [Ativan] 1 mg tablet 1 mg PO BID PRN (Reason: anxiety/sleep) Qty: 14 0RF ibuprofen 600 mg tablet 600 mg PO Q8H PRN (Reason: pain) Qty: 30 0RF tramadol 50 mg tablet 50 mg PO Q8H PRN (Reason: pain) Qty: 8 0RF clindamycin HCl 300 mg capsule 300 mg PO Q8H 7 Days Qty: 21 0RF Print Language: Persian
== END 2022-05-06 10:12 | disposition home or self-care (01) ==
PROVIDERS: Emergency Provider Emergency Medicine
DX: H60.93 Unspecified otitis externa, bilateral (principal); H66.93 Otitis media, unspecified, bilateral; H61.23 Impacted cerumen, bilateral; Z79.899 Other long term (current) drug therapy
CPT/HCPCS: 69209; 99282; 99283

== ENCOUNTER 2022-06-12 21:49 | Emergency (ER) | payer OTHER, SELFPAY ==
[2022-06-12 22:44] VITALS: BP 149/96; PULSE 88; RESP 16; TEMP 36.3; O2SAT 100; BMI 33.2
--- NOTE | 2022-06-13 00:20 | ED.DENTAL ---
HPI - Dental/Oral General Chief complaint: Dental/Oral Stated complaint: left face cheek pain and numbness Time Seen by Provider: 06/13/22 00:13 Source: patient and project management it specialist Mode of arrival: ambulatory Limitations: no limitations History of Present Illness HPI Narrative: Came in for evaluation of a dental pain. Patient is Ukrainian-speaking only require project management it specialist to obtain history complaining of right upper molar tooth pain for 3 days. Patient has no fever or chills. No facial swelling. No swallowing problem. Related Data Previous Rx's Medication Instructions Recorded azithromycin 250 mg tablet 250 mg PO DAILY 5 days #5 tabs 06/14/20 (Zithromax Z-Trevor) clindamycin HCl 300 mg capsule 300 mg PO TID Periorbital 08/15/20 cellulitis 10 days #30 caps erythromycin 5 mg/gram (0.5 %) eye 0.5 inch ophthalmic (eye) TID #3.5 08/15/20 ointment grams ibuprofen 800 mg tablet 800 mg PO Q8H PRN pain #14 tabs 08/15/20 oxycodone-acetaminophen 5 mg-325 1 tab PO Q6H PRN pain #10 tabs 08/15/20 mg tablet (Percocet) lorazepam 0.5 mg tablet (Ativan) 0.5 mg PO BEDTIME PRN anxiety #14 10/31/20 tabs metoclopramide HCl 10 mg tablet 10 mg PO Q6H PRN nausea and 02/22/21 (Reglan) vomiting #14 tabs cyclobenzaprine 5 mg tablet 5 mg PO TID PRN muscle spasm #10 05/10/21 tabs ibuprofen 600 mg tablet 600 mg PO Q6H PRN pain #30 tabs 05/10/21 lorazepam 1 mg tablet (Ativan) 1 mg PO BID PRN anxiety/sleep #14 07/02/21 tabs ondansetron 4 mg disintegrating 4 mg PO Q6-8H PRN nausea and 07/16/21 tablet vomiting #7 tabs ciprofloxacin HCl 500 mg tablet 500 mg PO Q12H 5 days #10 tabs 10/05/21 cefpodoxime 100 mg tablet 100 mg PO BID #20 tabs 10/08/21 clindamycin HCl 300 mg capsule 300 mg PO Q8H 7 days #21 caps 10/22/21 ibuprofen 600 mg tablet 600 mg PO Q8H PRN pain #30 tabs 10/22/21 tramadol 50 mg tablet 50 mg PO Q8H PRN pain #8 tabs 10/22/21 ondansetron 4 mg disintegrating 4 mg PO Q8H PRN nausea and 01/26/22 tablet vomiting #10 tabs ciprofloxacin 0.3 %-dexamethasone 4 drp otic (ears) BID 7 days #7.5 05/06/22 0.1 % ear drops,suspension mL (Ciprodex) ciprofloxacin HCl 500 mg tablet 500 mg PO BID #14 tabs 05/06/22 (Cipro) clindamycin HCl 150 mg capsule 150 mg PO TID #20 caps 06/13/22 ibuprofen 400 mg tablet 400 mg PO Q8H PRN pain #30 tabs 06/13/22 Allergies Allergy/AdvReac Type Severity Reaction Status Date / Time amoxicillin [AMOXICILLIN] Allergy Unknown UNKNOWN Verified 10/05/21 03:50 clavulanic acid Allergy Unknown Unknown Verified 10/05/21 04:01 [From Augmentin] Review of Systems Review of Systems: All other systems are reviewed and are negative Constitutional: Reports as per HPI and Reports no additional constitutional complaints Eyes: Reports as per HPI and Reports no additional eye complaints Reports system reviewed and no additional complaints, except as documented Cardiovascular: Reports as per HPI and Reports no additional cardiovascular complaints Respiratory: Reports as per HPI and Reports no additional respiratory complaints Gastrointestinal: Reports as per HPI and Reports no additional gastrointestinal complaints Genitourinary: Reports no additional female genitourinary complaints Musculoskeletal: Reports no additional musculoskeletal complaints Skin/Breast: Reports system reviewed and no additional complaints, except as docu Psychiatric: Reports no additional psychiatric complaints Endocrine: Reports no additional endocrine complaints Hematologic/Lymphatic: Reports no additional hematologic/lymphatic complaints Allergic/Immunologic: Reports no additional allergic/immunologic complaints Reports system reviewed and no additional complaints, except as documented and Reports Abnormal speech present [facility] Past Medical History Medical History Anemia Anxiety HTN (hypertension) Surgical History H/O: Social History Social History Alcohol intake: never Patient Tobacco Use Status: Never used Tobacco Advance Directives: No Physical Exam Vital Signs: Vital Signs: Last Vital Signs Temp 97.3 F 06/12/22 22:44 Pulse 88 06/12/22 22:44 Resp 16 06/12/22 22:44 BP 149/96 H 06/12/22 22:44 Pulse Ox 100 06/12/22 22:44 O2 Del Method 06/12/22 22:44 BMI result Body Mass Index 33.2 Vital signs have been reviewed as appeared to be correct. Blood pressure normal. Heart rate normal. Respiration rate normal. Temperature normal. Oxygen saturation normal. Appearance: Alert. Oriented X3. No acute distress. Head: Normal external exam. Normocephalic. Atraumatic. No Dumas signs noted. No raccoon eyes noted. Oral exam: Right upper 3rd molar tooth tender to touch with decay of the tooth, no gum swelling or fluctuation. No facial swelling or facial cellulitis. Eyes: PERRLA. EOMI. Conjunctiva and sclera normal. Eyelids normal. ENT: TM's Normal. Pharynx normal. Uvula midline. Moist mucous membranes. No trismus noted. No drooling noted. No muffled voice noted. Neck: Normal inspection. Neck supple. FROM. No adenopathy. Thyroid Normal. No meningeal signs. No neck mass noted. CVS: Normal heart rate and rhythm. Heart sound normal. No murmurs noted. Pulses normal throughout. Respiratory: No respiratory distress. Painless inspiration. Breath sounds normal. No wheezes/rales/rhonchi noted. Chest nontender. No accessory muscle usage noted or decreased air movement noted. Abdomen: Soft and nontender. Bowel sounds normal in all 4 quadrants. No distention noted. No organomegaly noted. No visible injury noted. Back: No CVA tenderness. Full range of motion noted. Skin: Skin warm and dry. Normal skin color. Normal skin turgor. No rashes/lesions/lacerations noted. Extremities: No lower extremity edema. Extremities exhibit normal range of motion. Extremities nontender. Neuro: Oriented X 3. Cranial nerve exam: II-XII are grossly intact No motor deficit. No sensory deficit. Reflexes normal. Course Course Course Narrative: Dental pain will start the patient clindamycin (patient is allergic to amoxicillin and Augmentin) 1 dose of oxycodone in the ED patient was instructed to follow-up with her dentist tomorrow. Discharge Plan Discharge Clinical Impression: Toothache Patient Disposition: Home, Self-Care Instructions: Toothache (ED) Prescriptions: New clindamycin HCl 150 mg capsule 150 mg PO TID Qty: 20 0RF ibuprofen 400 mg tablet 400 mg PO Q8H PRN (Reason: pain) Qty: 30 0RF No Action lorazepam [Ativan] 0.5 mg tablet 0.5 mg PO BEDTIME PRN (Reason: anxiety) Qty: 14 0RF metoclopramide HCl [Reglan] 10 mg tablet 10 mg PO Q6H PRN (Reason: nausea and vomiting) Qty: 14 0RF cyclobenzaprine 5 mg tablet 5 mg PO TID PRN (Reason: muscle spasm) Qty: 10 0RF ibuprofen 600 mg tablet 600 mg PO Q6H PRN (Reason: pain) Qty: 30 0RF azithromycin [Zithromax Z-Trevor] 250 mg tablet 250 mg PO DAILY 5 Days Qty: 5 0RF erythromycin 5 mg/gram (0.5 %) ointment 0.5 inch ophthalmic (eye) TID Qty: 3.5 0RF clindamycin HCl 300 mg capsule 300 mg PO TID 10 Days Qty: 30 0RF ibuprofen 800 mg tablet 800 mg PO Q8H PRN (Reason: pain) Qty: 14 0RF oxycodone-acetaminophen [Percocet] 5-325 mg tablet 1 tab PO Q6H PRN (Reason: pain) Qty: 10 0RF ondansetron 4 mg tablet,disintegrating 4 mg PO Q6-8H PRN (Reason: nausea and vomiting) Qty: 7 0RF ciprofloxacin HCl 500 mg tablet 500 mg PO Q12H 5 Days Qty: 10 0RF cefpodoxime 100 mg tablet 100 mg PO BID Qty: 20 0RF Rx Instructions: must administer with a meal/food ondansetron 4 mg tablet,disintegrating 4 mg PO Q8H PRN (Reason: nausea and vomiting) Qty: 10 0RF lorazepam [Ativan] 1 mg tablet 1 mg PO BID PRN (Reason: anxiety/sleep) Qty: 14 0RF ibuprofen 600 mg tablet 600 mg PO Q8H PRN (Reason: pain) Qty: 30 0RF tramadol 50 mg tablet 50 mg PO Q8H PRN (Reason: pain) Qty: 8 0RF clindamycin HCl 300 mg capsule 300 mg PO Q8H 7 Days Qty: 21 0RF ciprofloxacin-dexamethasone [Ciprodex] 0.3-0.1 % drops,suspension 4 drp otic (ears) BID 7 Days Qty: 7.5 0RF ciprofloxacin HCl [Cipro] 500 mg tablet 500 mg PO BID Qty: 14 0RF Referrals: Physician,Unknown J [Primary Care Provider] -
[2022-06-13] MEDS: oxyCODONE HCl Immed Release 5 MG TABLET PO (00:45)
[2022-06-13] MEDS: Clindamycin HCL 150 MG CAPSULE PO (00:45)
== END 2022-06-13 00:50 | disposition home or self-care (01) ==
PROVIDERS: Emergency Provider Emergency Medicine
DX: K08.89 Other specified disorders of teeth and supporting structures (principal); Z79.899 Other long term (current) drug therapy
CPT/HCPCS: 99283

== ENCOUNTER 2022-07-30 20:05 | Emergency (ER) | payer OTHER, SELFPAY ==
--- NOTE | ~2022-07-30 | XR_ITS ---
EXAMINATION: PORTABLE CHEST 1 VIEW CLINICAL INFORMATION: Possible pneumonia. Chest pain.. COMPARISON: 01/26/2022. TECHNIQUE: Portable frontal view of the chest was obtained. FINDINGS: The lungs are well expanded. No focal infiltrate, effusion, edema, or pneumothorax. Cardiac and mediastinal silhouettes are within normal limits for technique. No acute bony abnormality seen. XR/XR chest 1V IMPRESSION: No evidence of acute disease.
[2022-07-30 20:21] VITALS: BP 170/100; BP 170/99; PULSE 84; PULSE 85; RESP 18; TEMP 36.9; O2SAT 100; O2SAT 99; BMI 25.0
--- NOTE | 2022-07-30 20:26 | ECG_ITS ---
Test Reason : SHORTNESS OF BREATHE Blood Pressure : / mmHG Vent. Rate : 070 BPM Atrial Rate : 070 BPM P-R Int : 132 ms QRS Dur : 104 ms QT Int : 366 ms P-R-T Axes : 053 037 016 degrees QTc Int : 395 ms Normal sinus rhythm with sinus arrhythmia Minimal voltage criteria for LVH, may be normal variant ( R in aVL ) Borderline ECG When compared with ECG of 26-JAN-2022 15:12, No significant change was found Referred By: Lucas Martell Electronically Signed By:ELVIRA OLVERA MD
[2022-07-30] MEDS: Magnesium Hydrox/Alum Hydrox 30 ML ORAL.SUSP PO (20:59)
[2022-07-30] MEDS: Famotidine/PF 20 MG/2 ML VIAL IVPUSH (20:59)
[2022-07-30] MEDS: Aspirin 81 MG TAB.CHEW 324 MG PO (20:59)
[2022-07-30 21:00] LABS: MANUAL DIFF FLAG NO
[2022-07-30] MEDS: Lidocaine HCl Viscous 2 % 15 ML SOLUTION MUCOUS MEM (21:00)
[2022-07-30 21:02] LABS: Basophils Absolute Auto 0.1 X10*3/uL (0.0-0.2); Basophils Percent Auto 0.7 % (0-2); Eosinophils Absolute Auto 0.2 X10*3/uL (0.0-0.4); Eosinophils Percent Auto 1.9 % (0-4); Hemoglobin 10.5 g/dl (12.0-16.0); Imm Gran Abs Auto 0.04 X10*3/uL (0.00-0.03); Imm Gran Pct Auto 0.3 % (0.0-0.4); Lymphocytes Absolute Auto 2.4 X10*3/uL (1.2-4.9); Lymphocytes Percent Auto 20.5 % (20-40); Mean Corpuscular HGB Conc 30.9 g/dl (31.0-35.0); Mean Corpuscular Hemoglobin 23.3 pg (27.0-33.0); Mean Corpuscular Volume 75.4 fL (80.0-98.0); Mean Platelet Volume 10.9 fL (9.4-12.3); Monocytes Absolute Auto 0.7 X10*3/uL (0.1-1.2); Neutrophils Absolute Auto 8.4 x10*3/uL (2.0-8.3); Neutrophils Percent Auto 70.6 % (45-73); Platelet Count 257 X10*3/uL (160-400); Red Blood Count 4.51 X10*6/uL (4.20-5.50); Red Cell Distribution Width 15.3 % (11.0-16.0); White Blood Count 11.9 X10*3/uL (4.8-10.8)
[2022-07-30 21:08] LABS: Prothrombin Time 11.7 SEC (10.0-13.1)
[2022-07-30 21:10] LABS: Partial Thromboplastin Time 30.1 SEC (26.0-36.4)
[2022-07-30 21:18] LABS: Alanine Aminotransferase 14 U/L (0-31); Albumin Level 4.4 g/dL (3.5-5.0); Alkaline Phosphatase 76 U/L (39-117); Anion Gap 14 (12-20); Aspartate Amino Transferase 14 U/L (5-31); Bilirubin Total 0.3 mg/dL (0.0-1.0); Blood Urea Nitrogen 10 mg/dL (9-16); Calcium 9.3 mg/dL (8.4-10.2); Carbon Dioxide 26 mmol/L (22-29); Chloride 105 mmol/L (96-108); Creatinine Clr Calc Pharmacy 83.4; Estimated Glomerular Filt Rate > 60; Glucose Random 100 mg/dL (60-115); Sodium 141 mmol/L (135-145); Total Protein 7.5 g/dL (6.5-8.0)
[2022-07-30 21:20] LABS: B Type Natriuretic Peptide 42 pg/mL (<100)
--- NOTE | 2022-07-30 21:21 | ED.CHESTPAIN ---
HPI - Chest Pain General Chief Complaint: Chest Pain Stated Complaint: HIGH BP 200/90 PER EMS Time Seen by Provider: 07/30/22 20:18 Source: patient Mode of arrival: ambulatory History of Present Illness HPI narrative: 27 yold female with pmh of anxiety and HTN presents to the ED for atypical chest pain. patient states after taking cyclobenzaprine she started tingling all over he body, hot and cold sensation throughout the body, and chest pain described as burning acid sensation. patient denies any leg swelling, redness, flank pain, calf pain, or recent trauma. patient admits to recent 3 hours travel ( 07/18). Related Data Previous Rx's Medication Instructions Recorded azithromycin 250 mg tablet 250 mg PO DAILY 5 days #5 tabs 06/14/20 (Zithromax Z-Trevor) clindamycin HCl 300 mg capsule 300 mg PO TID Periorbital 08/15/20 cellulitis 10 days #30 caps erythromycin 5 mg/gram (0.5 %) eye 0.5 inch ophthalmic (eye) TID #3.5 08/15/20 ointment grams ibuprofen 800 mg tablet 800 mg PO Q8H PRN pain #14 tabs 08/15/20 oxycodone-acetaminophen 5 mg-325 1 tab PO Q6H PRN pain #10 tabs 08/15/20 mg tablet (Percocet) lorazepam 0.5 mg tablet (Ativan) 0.5 mg PO BEDTIME PRN anxiety #14 10/31/20 tabs metoclopramide HCl 10 mg tablet 10 mg PO Q6H PRN nausea and 02/22/21 (Reglan) vomiting #14 tabs cyclobenzaprine 5 mg tablet 5 mg PO TID PRN muscle spasm #10 05/10/21 tabs ibuprofen 600 mg tablet 600 mg PO Q6H PRN pain #30 tabs 05/10/21 lorazepam 1 mg tablet (Ativan) 1 mg PO BID PRN anxiety/sleep #14 07/02/21 tabs ondansetron 4 mg disintegrating 4 mg PO Q6-8H PRN nausea and 07/16/21 tablet vomiting #7 tabs ciprofloxacin HCl 500 mg tablet 500 mg PO Q12H 5 days #10 tabs 10/05/21 cefpodoxime 100 mg tablet 100 mg PO BID #20 tabs 01/28/22 clindamycin HCl 300 mg capsule 300 mg PO Q8H 7 days #21 caps 10/22/21 ibuprofen 600 mg tablet 600 mg PO Q8H PRN pain #30 tabs 10/22/21 tramadol 50 mg tablet 50 mg PO Q8H PRN pain #8 tabs 10/22/21 ondansetron 4 mg disintegrating 4 mg PO Q8H PRN nausea and 01/26/22 tablet vomiting #10 tabs ciprofloxacin 0.3 %-dexamethasone 4 drp otic (ears) BID 7 days #7.5 05/06/22 0.1 % ear drops,suspension mL (Ciprodex) ciprofloxacin HCl 500 mg tablet 500 mg PO BID #14 tabs 05/06/22 (Cipro) clindamycin HCl 150 mg capsule 150 mg PO TID #20 caps 06/13/22 ibuprofen 400 mg tablet 400 mg PO Q8H PRN pain #30 tabs 06/13/22 famotidine 20 mg tablet (Pepcid) 20 mg PO BID 10 days #20 tabs 07/31/22 Allergies Allergy/AdvReac Type Severity Reaction Status Date / Time amoxicillin [AMOXICILLIN] Allergy Unknown UNKNOWN Verified 10/05/21 03:50 clavulanic acid Allergy Unknown Unknown Verified 10/05/21 04:01 [From Augmentin] Review of Systems Review of Systems: Burning sensation in chest, tingling in all body. Yes all other systems are reviewed and are negative PMFSH Past Medical History Medical History Anemia Anxiety HTN (hypertension) Surgical History H/O: Social History Social History Alcohol intake: never Patient Tobacco Use Status: Never used Tobacco Smoked in Last 30 Days: No Use of substances other than those prescribed or required for medical reasons: No Advance Directives: No Advance Directives Information Provided: No Physical Exam Vital Signs: Vital Signs: Last Vital Signs Temp 98.2 F 07/31/22 01:51 Pulse 88 07/31/22 01:51 Resp 19 07/31/22 01:51 BP 147/86 H 07/31/22 01:51 Pulse Ox 98 07/31/22 01:51 O2 Del Method 07/31/22 01:51 BMI result Body Mass Index 25.0 Const: General: cooperative, healthy appearing, comfortable, no acute distress, well developed, alert, awake and Physically active HEENT: Head: Yes normal to inspection, Yes No palpable skull fracture present, Yes normocephalic, Yes atraumatic and No abrasion Eyes: General: appearance normal, both eyes and all related structures Neck: Neck: Yes normal visual inspection, Yes full ROM, Yes no lymphadenopathy, Yes no meningeal signs, Yes trachea midline, Yes supple, No anterior neck swelling and No tender Chest: Chest palpation & inspection: normal inspection of the chest Chest/axillae images: 1. Positive for tenderness on palpation. Negative for any rash, erythema, crepitus, breath swelling, nipple discharge, or axillary lymphadenopathy Resp: Effort & Inspection: normal respiratory effort and able to speak in complete sentences Auscultation: clear to auscultation bilaterally Cardio: Jugular venous distension: no JVD Heart sounds: S1 normal heart sound present and S2 normal heart sound present GI: Inspection: Yes normal to inspection and No abdominal wall ecchymosis Palpation (GI): Soft to palpation, not firm, nontender, no guarding and not rigid : General: No CVA tenderness and Yes no CVA tenderness Back/Spine/Pelvis: Back: no CVA tenderness, No CVA tenderness and No back tenderness Skin: General skin exam: no rashes or lesions noted and elasticity normal Neuro: Other: Negative for any neuro deficits. Negative facial droop. Negative slurred speech. negative pronator drifts All extremities equal strength 5+. [id number] and rapid hand movement intact. Negative Romberg. [id number] rapid hand movement intact. General: no meningeal signs Extrem: General: Yes normal to inspection and Yes full ROM Psych: Appearance: grossly normal, well kempt and not disheveled Course Course Course Narrative: EKG and cardiac workup will be done. Negative for neuro deficits. Patient states mother had a heart attack at 27 will do 2 troponins. Patient recently travel although atypical chest pain burning was sent D-dimer. GI cocktail ordered Reevaluation(s) Reevaluation #1: Negative for any neuro deficits. Two troponins negative. D-dimer negative. PERC score 0. EKG negative STEMI does not show any new changes. Patient given Ativan during the ED visit due to patient stating tingling all over body feeling anxious. Patient has history anxiety. Most likely anxiety but cardiac workup was done. Patient to be discharged. GERD also differential. Burning sensation in chest resolved. Patient informed to continue taker her blood pressure meds. No indication for head CT scan. no neuro deficits Time: 01:32 Medications Administered Discontinued Medications Generic Name Dose Route Start Last Admin Trade Name Freq PRN Reason Stop Dose Admin Al Hydroxide/Mg Hydroxide 30 ml 07/30/22 20:38 07/30/22 20:59 Magnesium Hydrox/Alum Hydrox 30 Ml Oral.Susp PO 07/30/22 20:39 30 ml ONCE ONE Administration Aspirin 324 mg 07/30/22 20:38 07/30/22 20:59 Aspirin 81 Mg Tab.Chew PO 07/30/22 20:39 324 mg ONCE ONE Administration Famotidine 20 mg 07/30/22 20:38 07/30/22 20:59 Famotidine/Pf 20 Mg/2 Ml Vial IVPUSH 07/30/22 20:39 20 mg ONCE ONE Administration Lidocaine HCl 15 ml 07/30/22 20:38 07/30/22 21:00 Lidocaine Hcl Viscous 2 % 15 Ml Solution MUCOUS MEM 07/30/22 20:39 15 ml ONCE ONE Administration Lorazepam 1 mg 07/30/22 21:41 07/30/22 22:03 Lorazepam 1 Mg Tablet PO 07/30/22 21:42 1 mg ONCE ONE Administration MDM - Chest Pain MDM Narrative Medical decision making narrative: Atypical chest pAIn GERD Lab Data Result diagrams: 07/30/22 20:53 07/30/22 20:53 Labs: Lab Results 07/30/22 07/30/22 07/30/22 Range/Units 20:53 20:53 20:53 WBC 11.9 H (4.8-10.8) X10*3/uL RBC 4.51 (4.20-5.50) X10*6/uL Hgb 10.5 L (12.0-16.0) g/dl Hct 34.0 L (37.0-47.0) % MCV 75.4 L (80.0-98.0) fL MCH 23.3 L (27.0-33.0) pg MCHC 30.9 L (31.0-35.0) g/dl RDW 15.3 (11.0-16.0) % Plt Count 257 (160-400) X10*3/uL MPV 10.9 (9.4-12.3) fL Immature Gran % (Auto) 0.3 (0.0-0.4) % Neut % (Auto) 70.6 (45-73) % Lymph % (Auto) 20.5 (20-40) % [place] % (Auto) 6.0 (2-11) % Eos % (Auto) 1.9 (0-4) % Baso % (Auto) 0.7 (0-2) % Lymph # (Auto) 2.4 (1.2-4.9) X10*3/uL [place] # (Auto) 0.7 (0.1-1.2) X10*3/uL Eos # (Auto) 0.2 (0.0-0.4) X10*3/uL Baso # (Auto) 0.1 (0.0-0.2) X10*3/uL Abs Immat Gran (auto) 0.04 H (0.00-0.03) X10*3/uL Absolute Neuts (auto) 8.4 H (2.0-8.3) x10*3/uL Absolute Nucleated RBC 0.000 (0.0-0.012) X10*3/uL Nucleated RBC % (auto) 0.0 (0.0-0.2) /100WBC PT (10.0-13.1) SEC INR (0.9-1.1) APTT (26.0-36.4) SEC D-Dimer High Sensitivty NG/ML Sodium 141 (135-145) mmol/L Potassium 4.0 (3.3-5.1) mmol/L Chloride 105 (96-108) mmol/L Carbon Dioxide 26 (22-29) mmol/L Anion Gap 14 (12-20) BUN 10 (9-16) mg/dL Creatinine 0.80 (0.5-1.4) mg/dL Estim Creat Clear Calc 83.4 Estimated GFR > 60 Random Glucose 100 (60-115) mg/dL Calcium 9.3 D (8.4-10.2) mg/dL Total Bilirubin 0.3 (0.0-1.0) mg/dL AST 14 (5-31) U/L ALT 14 (0-31) U/L Alkaline Phosphatase 76 D (39-117) U/L Troponin I High Sens < 3.5 (<3.5-17.0) ng/L B-Natriuretic Peptide (<100) pg/mL Total Protein 7.5 (6.5-8.0) g/dL Albumin 4.4 (3.5-5.0) g/dL TSH 1.84 (0.32-4.0) uIU/mL 07/30/22 07/30/22 07/30/22 Range/Units 20:53 20:53 23:58 WBC (4.8-10.8) X10*3/uL RBC (4.20-5.50) X10*6/uL Hgb (12.0-16.0) g/dl Hct (37.0-47.0) % MCV (80.0-98.0) fL MCH (27.0-33.0) pg MCHC (31.0-35.0) g/dl RDW (11.0-16.0) % Plt Count (160-400) X10*3/uL MPV (9.4-12.3) fL Immature Gran % (Auto) (0.0-0.4) % Neut % (Auto) (45-73) % Lymph % (Auto) (20-40) % [place] % (Auto) (2-11) % Eos % (Auto) (0-4) % Baso % (Auto) (0-2) % Lymph # (Auto) (1.2-4.9) X10*3/uL [place] # (Auto) (0.1-1.2) X10*3/uL Eos # (Auto) (0.0-0.4) X10*3/uL Baso # (Auto) (0.0-0.2) X10*3/uL Abs Immat Gran (auto) (0.00-0.03) X10*3/uL Absolute Neuts (auto) (2.0-8.3) x10*3/uL Absolute Nucleated RBC (0.0-0.012) X10*3/uL Nucleated RBC % (auto) (0.0-0.2) /100WBC PT 11.7 (10.0-13.1) SEC INR 1.0 (0.9-1.1) APTT 30.1 (26.0-36.4) SEC D-Dimer High Sensitivty < 150 NG/ML Sodium (135-145) mmol/L Potassium (3.3-5.1) mmol/L Chloride (96-108) mmol/L Carbon Dioxide (22-29) mmol/L Anion Gap (12-20) BUN (9-16) mg/dL Creatinine (0.5-1.4) mg/dL Estim Creat Clear Calc Estimated GFR Random Glucose (60-115) mg/dL Calcium (8.4-10.2) mg/dL Total Bilirubin (0.0-1.0) mg/dL AST (5-31) U/L ALT (0-31) U/L Alkaline Phosphatase (39-117) U/L Troponin I High Sens < 3.5 (<3.5-17.0) ng/L B-Natriuretic Peptide 42 (<100) pg/mL Total Protein (6.5-8.0) g/dL Albumin (3.5-5.0) g/dL TSH (0.32-4.0) uIU/mL ECG Data ECG #1: Interpretation: NOrmal Sinus rhtyeh, pR inverval 132, and QRS 104 and QTC 395. negative stemi Discharge Plan Discharge Clinical Impression: Atypical chest pain, GERD (gastroesophageal reflux disease), Medication side effects Patient Disposition: Home, Self-Care Instructions: Chest Pain (DC), Gastroesophageal Reflux Disease (ED) Additional Instructions: [place] an?lisis de edmond y electrocardiograma resultaron negativos en cuanto a signos de ataque card?aco, riesgo de co?gulos de edmond, insuficiencia renal, deficiencia de electrolitos, signos de deshidrataci?n o cualquier problema que ponga en peligro la toño. Ser? dado de titus con medicaci?n anti?guy. Debe hacer un seguimiento y llamar a un proveedor de atenci?n primaria para un seguimiento para la reevaluaci?n. Regrese al servicio de urgencias de inmediato por cualquier dolor en el pecho, dificultad para respirar, dificultad para hablar, ca?da facial, par?lisis de las extremidades, sangrado rectal, v?mitos con edmond, fiebre, escalofr?os, dolor en la pantorrilla, hinchaz?n de las piernas, dolor en el pecho al inspirar, p?rdida de la visi?n o cualquier otro s?ntoma preocupante. Contin?e tomando kern medicamento para la presi?n arterial titus. Prescriptions: New famotidine [Pepcid] 20 mg tablet 20 mg PO BID 10 Days Qty: 20 0RF No Action lorazepam [Ativan] 0.5 mg tablet 0.5 mg PO BEDTIME PRN (Reason: anxiety) Qty: 14 0RF metoclopramide HCl [Reglan] 10 mg tablet 10 mg PO Q6H PRN (Reason: nausea and vomiting) Qty: 14 0RF cyclobenzaprine 5 mg tablet 5 mg PO TID PRN (Reason: muscle spasm) Qty: 10 0RF ibuprofen 600 mg tablet 600 mg PO Q6H PRN (Reason: pain) Qty: 30 0RF azithromycin [Zithromax Z-Trevor] 250 mg tablet 250 mg PO DAILY 5 Days Qty: 5 0RF erythromycin 5 mg/gram (0.5 %) ointment 0.5 inch ophthalmic (eye) TID Qty: 3.5 0RF clindamycin HCl 300 mg capsule 300 mg PO TID 10 Days Qty: 30 0RF ibuprofen 800 mg tablet 800 mg PO Q8H PRN (Reason: pain) Qty: 14 0RF oxycodone-acetaminophen [Percocet] 5-325 mg tablet 1 tab PO Q6H PRN (Reason: pain) Qty: 10 0RF ondansetron 4 mg tablet,disintegrating 4 mg PO Q6-8H PRN (Reason: nausea and vomiting) Qty: 7 0RF ciprofloxacin HCl 500 mg tablet 500 mg PO Q12H 5 Days Qty: 10 0RF cefpodoxime 100 mg tablet 100 mg PO BID Qty: 20 0RF Rx Instructions: must administer with a meal/food ondansetron 4 mg tablet,disintegrating 4 mg PO Q8H PRN (Reason: nausea and vomiting) Qty: 10 0RF clindamycin HCl 150 mg capsule 150 mg PO TID Qty: 20 0RF ibuprofen 400 mg tablet 400 mg PO Q8H PRN (Reason: pain) Qty: 30 0RF lorazepam [Ativan] 1 mg tablet 1 mg PO BID PRN (Reason: anxiety/sleep) Qty: 14 0RF ibuprofen 600 mg tablet 600 mg PO Q8H PRN (Reason: pain) Qty: 30 0RF tramadol 50 mg tablet 50 mg PO Q8H PRN (Reason: pain) Qty: 8 0RF clindamycin HCl 300 mg capsule 300 mg PO Q8H 7 Days Qty: 21 0RF ciprofloxacin-dexamethasone [Ciprodex] 0.3-0.1 % drops,suspension 4 drp otic (ears) BID 7 Days Qty: 7.5 0RF ciprofloxacin HCl [Cipro] 500 mg tablet 500 mg PO BID Qty: 14 0RF Stand Alone Forms: Work/School Release Interventions: ED Discharge Assessment Last Done: 07/31/22 02:02 Discharge Date/Time: 07/31/22 02:04 Print Language: [place]
[2022-07-30 21:22] VITALS: BP 146/99; PULSE 70
[2022-07-30 21:28] LABS: Troponin-I High Sensitivity < 3.5 ng/L (<3.5-17.0)
[2022-07-30 21:38] VITALS: BP 167/98; PULSE 83
[2022-07-30 21:38] LABS: TSH reflex Free T4 1.84 uIU/mL (0.32-4.0)
[2022-07-30] MEDS: LORazepam 1 MG TABLET PO (22:03)
[2022-07-30 22:40] LABS: D Dimer High Sensitivity < 150 NG/ML
[2022-07-30 22:41] VITALS: BP 161/76; PULSE 81; RESP 25; TEMP 36.6; O2SAT 99
[2022-07-30 23:44] VITALS: BP 155/85; PULSE 77; RESP 19; TEMP 36.4; O2SAT 96
[2022-07-31 00:35] LABS: Troponin-I High Sensitivity < 3.5 ng/L (<3.5-17.0)
[2022-07-31 01:51] VITALS: BP 147/86; PULSE 88; RESP 19; TEMP 36.8; O2SAT 98
== END 2022-07-31 02:04 | disposition home or self-care (01) ==
PROVIDERS: Physician Assistant; Emergency Provider Student in an Organized Health Care Education/Training Program
DX: R07.89 Other chest pain (principal); K21.9 Gastro-esophageal reflux disease without esophagitis; R20.2 Paresthesia of skin; T48.1X5A Adverse effect of skeletal muscle relaxants [neuromuscular blocking agents], initial encounter; Y92.019 Unspecified place in single-family (private) house as the place of occurrence of the external cause; I10 Essential (primary) hypertension; F41.9 Anxiety disorder, unspecified; Z79.899 Other long term (current) drug therapy
CPT/HCPCS: 36415; 71045; 80053; 83880; 84443; 84484; 85025; 85379; 85610; 85730; 93005; 96374; 99284

== ENCOUNTER 2022-08-23 16:46 | Emergency (ER) | payer OTHER, SELFPAY ==
--- NOTE | ~2022-08-23 | XR_ITS ---
EXAMINATION: XR CHEST CLINICAL INFORMATION: Dizziness and head pain COMPARISON: Chest x-ray 07/30/2022 TECHNIQUE: 2 views of the chest were obtained. FINDINGS: The lungs are clear. No airspace consolidation, pleural effusion, or pneumothorax. The cardiomediastinal silhouette is within normal limits. No acute osseous injury. XR/XR chest 2V IMPRESSION: No acute pulmonary process.
--- NOTE | ~2022-08-23 | CT_ITS ---
EXAMINATION: CT HEAD WITHOUT CONTRAST CLINICAL INFORMATION: Dizziness. Head pain. COMPARISON: CT head 09/27/2019 TECHNIQUE: Contiguous axial imaging was performed from the skull base to vertex without intravenous administration of contrast. Coronal and sagittal reformatted images are performed at the CT scanner. [This CT examination was performed using dose optimization techniques as appropriate, variously including the following: *Automated exposure control *Adjustment of mA and/or kV according to patient size (this includes techniques or standardized protocols for targeted exams where dose is matched to indication/reason for exam; i.e. extremities or head) *Use of iterative reconstruction technique] DLP: 628 mGy-cm. FINDINGS: There is no evidence of acute intracranial hemorrhage or territorial infarction. No abnormal mass-effect or midline shift is seen. Maldonado to white matter differentiation is well preserved. No extra-axial fluid collections are identified. The ventricles are normal in size. There is no abnormal attenuation within the brain parenchyma. There is no osseous abnormality. The mastoid air cells and visualized portions of the paranasal sinuses are well-aerated. CT/CT head/brain wo IV con IMPRESSION: No acute intracranial pathology.
[2022-08-23 17:58] VITALS: BP 123/73; PULSE 74; RESP 16; TEMP 36.7; O2SAT 100; BMI 33.7
[2022-08-23 18:44] LABS: MANUAL DIFF FLAG NO
[2022-08-23 18:45] LABS: Basophils Absolute Auto 0.1 X10*3/uL (0.0-0.2); Basophils Percent Auto 0.7 % (0-2); Eosinophils Absolute Auto 0.3 X10*3/uL (0.0-0.4); Eosinophils Percent Auto 3.4 % (0-4); Hematocrit 36.3 % (37.0-47.0); Hemoglobin 11.2 g/dl (12.0-16.0); Imm Gran Abs Auto 0.03 X10*3/uL (0.00-0.03); Imm Gran Pct Auto 0.3 % (0.0-0.4); Lymphocytes Absolute Auto 2.8 X10*3/uL (1.2-4.9); Lymphocytes Percent Auto 29.6 % (20-40); Mean Corpuscular HGB Conc 30.9 g/dl (31.0-35.0); Mean Corpuscular Hemoglobin 23.2 pg (27.0-33.0); Mean Corpuscular Volume 75.2 fL (80.0-98.0); Mean Platelet Volume 11.2 fL (9.4-12.3); Monocytes Absolute Auto 0.6 X10*3/uL (0.1-1.2); Monocytes Percent Auto 6.3 % (2-11); Neutrophils Absolute Auto 5.7 x10*3/uL (2.0-8.3); Neutrophils Percent Auto 59.7 % (45-73); Platelet Count 338 X10*3/uL (160-400); Red Blood Count 4.83 X10*6/uL (4.20-5.50); Red Cell Distribution Width 15.1 % (11.0-16.0); White Blood Count 9.6 X10*3/uL (4.8-10.8)
[2022-08-23 19:09] LABS: Alanine Aminotransferase 20 U/L (0-31); Albumin Level 4.8 g/dL (3.5-5.0); Alkaline Phosphatase 85 U/L (39-117); Anion Gap 14 (12-20); Aspartate Amino Transferase 20 U/L (5-31); Bilirubin Total 0.2 mg/dL (0.0-1.0); Blood Urea Nitrogen 7 mg/dL (9-16); Calcium 10.3 mg/dL (8.4-10.2); Carbon Dioxide 27 mmol/L (22-29); Chloride 104 mmol/L (96-108); Creatinine Clr Calc Pharmacy 99.5; Estimated Glomerular Filt Rate > 60; Glucose Random 98 mg/dL (60-115); Potassium 4.5 mmol/L (3.3-5.1); Sodium 140 mmol/L (135-145); Total Protein 8.2 g/dL (6.5-8.0)
[2022-08-23 20:07] VITALS: BP 138/90; PULSE 64; RESP 18; O2SAT 100
--- NOTE | 2022-08-23 20:08 | ED.GENADULT ---
HPI - General Adult General Chief complaint: General Medical <REVA Mistry - Last Filed: 08/23/22 20:12> Stated complaint: Blood pressure concern/head pressure <REVA Mistry - Last Filed: 08/23/22 20:12> Time Seen by Provider: 08/24/22 00:42 <REVA Mistry - Last Filed: 08/23/22 20:12> Source: patient <Ayush Lora MD - Last Filed: 08/24/22 02:28> Mode of arrival: ambulatory <Ayush Lora MD - Last Filed: 08/24/22 02:28> Limitations: no limitations <Ayush Lora MD - Last Filed: 08/24/22 02:28> History of Present Illness HPI narrative: Patient history of anxiety became severe multiple complaints nonspecific from headache to palpitation to or sleeps last few days no chest pain but felt heart is beating fast but heart rate was 180s no shortness of breath no fever or chills no urinary complaints no nausea vomiting or diarrhea <Ayush Lora MD - Last Filed: 08/24/22 02:28> Related Data Home medications: Previous Rx's Medication Instructions Recorded azithromycin 250 mg tablet 250 mg PO DAILY 5 days #5 tabs 06/14/20 (Zithromax Z-Trevor) clindamycin HCl 300 mg capsule 300 mg PO TID Periorbital 08/15/20 cellulitis 10 days #30 caps erythromycin 5 mg/gram (0.5 %) eye 0.5 inch ophthalmic (eye) TID #3.5 08/15/20 ointment grams ibuprofen 800 mg tablet 800 mg PO Q8H PRN pain #14 tabs 08/15/20 oxycodone-acetaminophen 5 mg-325 1 tab PO Q6H PRN pain #10 tabs 08/15/20 mg tablet (Percocet) lorazepam 0.5 mg tablet (Ativan) 0.5 mg PO BEDTIME PRN anxiety #14 10/31/20 tabs metoclopramide HCl 10 mg tablet 10 mg PO Q6H PRN nausea and 02/22/21 (Reglan) vomiting #14 tabs cyclobenzaprine 5 mg tablet 5 mg PO TID PRN muscle spasm #10 05/10/21 tabs ibuprofen 600 mg tablet 600 mg PO Q6H PRN pain #30 tabs 05/10/21 lorazepam 1 mg tablet (Ativan) 1 mg PO BID PRN anxiety/sleep #14 07/02/21 tabs ondansetron 4 mg disintegrating 4 mg PO Q6-8H PRN nausea and 07/16/21 tablet vomiting #7 tabs ciprofloxacin HCl 500 mg tablet 500 mg PO Q12H 5 days #10 tabs 10/05/21 cefpodoxime 100 mg tablet 100 mg PO BID #20 tabs 10/08/21 clindamycin HCl 300 mg capsule 300 mg PO Q8H 7 days #21 caps 10/22/21 ibuprofen 600 mg tablet 600 mg PO Q8H PRN pain #30 tabs 10/22/21 tramadol 50 mg tablet 50 mg PO Q8H PRN pain #8 tabs 10/22/21 ondansetron 4 mg disintegrating 4 mg PO Q8H PRN nausea and 01/26/22 tablet vomiting #10 tabs ciprofloxacin 0.3 %-dexamethasone 4 drp otic (ears) BID 7 days #7.5 05/06/22 0.1 % ear drops,suspension mL (Ciprodex) ciprofloxacin HCl 500 mg tablet 500 mg PO BID #14 tabs 05/06/22 (Cipro) clindamycin HCl 150 mg capsule 150 mg PO TID #20 caps 06/13/22 ibuprofen 400 mg tablet 400 mg PO Q8H PRN pain #30 tabs 06/13/22 famotidine 20 mg tablet (Pepcid) 20 mg PO BID 10 days #20 tabs 07/31/22 <REVA Mistry - Last Filed: 08/23/22 20:12> Allergies/adverse reactions: Allergies Allergy/AdvReac Type Severity Reaction Status Date / Time amoxicillin [AMOXICILLIN] Allergy Unknown UNKNOWN Verified 08/23/22 18:02 clavulanic acid Allergy Unknown Unknown Verified 08/23/22 18:02 [From Augmentin] cyclobenzaprine Allergy Palpitation Verified 08/23/22 18:03 [From Flexeril] s <REVA Mistry - Last Filed: 08/23/22 20:12> Review of Systems Review of Systems: Yes all other systems are reviewed and are negative <Ayush Lora MD - Last Filed: 08/24/22 02:28> [facility] Past Medical History Medical History: Medical History Anemia Anxiety HTN (hypertension) <REVA Mistry - Last Filed: 08/23/22 20:12> Surgical History: Surgical History H/O: <REVA Mistry - Last Filed: 08/23/22 20:12> Social History Social History: Social History Alcohol intake: never Patient Tobacco Use Status: Never used Tobacco Advance Directives: No Advance Directives Information Provided: No <REVA Mistry - Last Filed: 08/23/22 20:12> Physical Exam ED Vital Signs: Vital Signs - 24 hr 08/23/22 17:58 08/23/22 20:07 08/24/22 00:13 Temperature 98.1 F Pulse Rate 74 64 66 Respiratory Rate 16 18 16 Blood Pressure 123/73 138/90 H 110/61 Pulse Oximetry 100 100 99 Oxygen Delivery Method Room Air Room Air Room Air BMI result Body Mass Index 33.7 <REVA Mistry - Last Filed: 08/23/22 20:12> Vital Signs - 24 hr 08/23/22 17:58 08/23/22 20:07 08/24/22 00:13 Temperature 98.1 F Pulse Rate 74 64 66 Respiratory Rate 16 18 16 Blood Pressure 123/73 138/90 H 110/61 Pulse Oximetry 100 100 99 Oxygen Delivery Method Room Air Room Air Room Air BMI result Body Mass Index 33.7 <Ayush Lora MD - Last Filed: 08/24/22 02:28> Appearance: Alert. Oriented X3. No acute distress. Eyes: PERRLA, No Nystagmus ENT: Pharynx normal. Oral Mucosa moist Neck: Normal inspection. Neck supple. CVS: Normal heart rate and rhythm. Pulses normal. Respiratory: No respiratory distress. Equal air entry bilateral, no wheezing/rales/rhonchi Abdomen: Soft and nontender. Bowel sounds are present, no mass palpable, no CVA tenderness Skin: Skin warm and dry. Normal skin color. Normal skin turgor. Extremities: No lower extremity edema. No calf tenderness Neuro: Oriented X 3. No motor deficit. No sensory deficit.No cerebellar signs , cranial nerves II-XII intact <Ayush Lora MD - Last Filed: 08/24/22 02:28> Course Course Course Narrative: 20pm - 27yoF c PMHx of HTN is presenting to the ER with complaints of dizziness/lightheadedness with a headache reporting that she feels like ?water dripping in the back of her head?. Also reports feeling like her hands are cold. She felt like she was going to pass out as well and her blood pressure was 100/50 prior to arrival. She reports that this has all been happening for the past 3 weeks and continue to worsen over the past 3 days. On exam patient has a normal steady gait. Not in any acute distress. Repeat vital signs are within normal limits patient not hypotensive. No neuro deficits noted. Patient already had labs while in the waiting room all labs are within normal limits. Plan: Therefore at this time will obtain a CT scan of brain and chest x-ray and at a serum quant patient will be sent back to the waiting room for further evaluation treatment to the main ER. Patient is stable. <REVA Mistry - Last Filed: 08/23/22 20:12> Medical Decision Making Medical Decision Making [facility] Narrative: Patient nonspecific symptoms labs and head CT scan was done by the triage provider which was negative patient takes lorazepam at home advised to continue same and follow with PCP symptoms are from anxiety <Ayush Lora MD - Last Filed: 08/24/22 02:28> Lab Data [facility] Lab Attestation statement: I reviewed the patient's lab results. <Ayush Lora MD - Last Filed: 08/24/22 02:28> Result Diagrams: : 08/23/22 18:40 08/23/22 18:40 <REVA Mistry - Last Filed: 08/23/22 20:12> Labs: Lab Results 08/23/22 08/23/22 08/23/22 Range/Units 18:40 18:40 18:40 WBC 9.6 (4.8-10.8) X10*3/uL RBC 4.83 (4.20-5.50) X10*6/uL Hgb 11.2 L (12.0-16.0) g/dl Hct 36.3 L (37.0-47.0) % MCV 75.2 L (80.0-98.0) fL MCH 23.2 L (27.0-33.0) pg MCHC 30.9 L (31.0-35.0) g/dl RDW 15.1 (11.0-16.0) % Plt Count 338 D (160-400) X10*3/uL MPV 11.2 (9.4-12.3) fL Immature Gran % (Auto) 0.3 (0.0-0.4) % Neut % (Auto) 59.7 (45-73) % Lymph % (Auto) 29.6 (20-40) % Crockett % (Auto) 6.3 (2-11) % Eos % (Auto) 3.4 (0-4) % Baso % (Auto) 0.7 (0-2) % Lymph # (Auto) 2.8 (1.2-4.9) X10*3/uL Crockett # (Auto) 0.6 (0.1-1.2) X10*3/uL Eos # (Auto) 0.3 (0.0-0.4) X10*3/uL Baso # (Auto) 0.1 (0.0-0.2) X10*3/uL Abs Immat Gran (auto) 0.03 (0.00-0.03) X10*3/uL Absolute Neuts (auto) 5.7 (2.0-8.3) x10*3/uL Absolute Nucleated RBC 0.000 (0.0-0.012) X10*3/uL Nucleated RBC % (auto) 0.0 (0.0-0.2) /100WBC Sodium 140 (135-145) mmol/L Potassium 4.5 (3.3-5.1) mmol/L Chloride 104 (96-108) mmol/L Carbon Dioxide 27 (22-29) mmol/L Anion Gap 14 (12-20) BUN 7 L (9-16) mg/dL Creatinine 0.78 (0.5-1.4) mg/dL Estim Creat Clear Calc 99.5 Estimated GFR > 60 Random Glucose 98 (60-115) mg/dL Calcium 10.3 H D (8.4-10.2) mg/dL Total Bilirubin 0.2 (0.0-1.0) mg/dL AST 20 (5-31) U/L ALT 20 (0-31) U/L Alkaline Phosphatase 85 (39-117) U/L Troponin I High Sens < 3.5 (<3.5-17.0) ng/L Total Protein 8.2 H (6.5-8.0) g/dL Albumin 4.8 (3.5-5.0) g/dL Beta HCG, Quant < 2 mIU/mL <REVA Mistry - Last Filed: 08/23/22 20:12> Lab Results 08/23/22 08/23/22 08/23/22 Range/Units 18:40 18:40 18:40 WBC 9.6 (4.8-10.8) X10*3/uL RBC 4.83 (4.20-5.50) X10*6/uL Hgb 11.2 L (12.0-16.0) g/dl Hct 36.3 L (37.0-47.0) % MCV 75.2 L (80.0-98.0) fL MCH 23.2 L (27.0-33.0) pg MCHC 30.9 L (31.0-35.0) g/dl RDW 15.1 (11.0-16.0) % Plt Count 338 D (160-400) X10*3/uL MPV 11.2 (9.4-12.3) fL Immature Gran % (Auto) 0.3 (0.0-0.4) % Neut % (Auto) 59.7 (45-73) % Lymph % (Auto) 29.6 (20-40) % Crockett % (Auto) 6.3 (2-11) % Eos % (Auto) 3.4 (0-4) % Baso % (Auto) 0.7 (0-2) % Lymph # (Auto) 2.8 (1.2-4.9) X10*3/uL Crockett # (Auto) 0.6 (0.1-1.2) X10*3/uL Eos # (Auto) 0.3 (0.0-0.4) X10*3/uL Baso # (Auto) 0.1 (0.0-0.2) X10*3/uL Abs Immat Gran (auto) 0.03 (0.00-0.03) X10*3/uL Absolute Neuts (auto) 5.7 (2.0-8.3) x10*3/uL Absolute Nucleated RBC 0.000 (0.0-0.012) X10*3/uL Nucleated RBC % (auto) 0.0 (0.0-0.2) /100WBC Sodium 140 (135-145) mmol/L Potassium 4.5 (3.3-5.1) mmol/L Chloride 104 (96-108) mmol/L Carbon Dioxide 27 (22-29) mmol/L Anion Gap 14 (12-20) BUN 7 L (9-16) mg/dL Creatinine 0.78 (0.5-1.4) mg/dL Estim Creat Clear Calc 99.5 Estimated GFR > 60 Random Glucose 98 (60-115) mg/dL Calcium 10.3 H D (8.4-10.2) mg/dL Total Bilirubin 0.2 (0.0-1.0) mg/dL AST 20 (5-31) U/L ALT 20 (0-31) U/L Alkaline Phosphatase 85 (39-117) U/L Troponin I High Sens < 3.5 (<3.5-17.0) ng/L Total Protein 8.2 H (6.5-8.0) g/dL Albumin 4.8 (3.5-5.0) g/dL Beta HCG, Quant < 2 mIU/mL <Ayush Lora MD - Last Filed: 08/24/22 02:28> Discharge Plan Discharge Clinical Impression: Anxiety <REVA Mistry - Last Filed: 08/23/22 20:12> Patient Disposition: Home, Self-Care <REVA Mistry - Last Filed: 08/23/22 20:12> Instructions: Generalized Anxiety Disorder (ED) <REVA Mistry - Last Filed: 08/23/22 20:12> Additional Instructions: Taken your medication as prescribed by your PCP and therapist Your blood workup CT scan of the head are normal <REVA Mistry - Last Filed: 08/23/22 20:12> Prescriptions: No Action lorazepam [Ativan] 0.5 mg tablet 0.5 mg PO BEDTIME PRN (Reason: anxiety) Qty: 14 0RF metoclopramide HCl [Reglan] 10 mg tablet 10 mg PO Q6H PRN (Reason: nausea and vomiting) Qty: 14 0RF cyclobenzaprine 5 mg tablet 5 mg PO TID PRN (Reason: muscle spasm) Qty: 10 0RF ibuprofen 600 mg tablet 600 mg PO Q6H PRN (Reason: pain) Qty: 30 0RF azithromycin [Zithromax Z-Trevor] 250 mg tablet 250 mg PO DAILY 5 Days Qty: 5 0RF erythromycin 5 mg/gram (0.5 %) ointment 0.5 inch ophthalmic (eye) TID Qty: 3.5 0RF clindamycin HCl 300 mg capsule 300 mg PO TID 10 Days Qty: 30 0RF ibuprofen 800 mg tablet 800 mg PO Q8H PRN (Reason: pain) Qty: 14 0RF oxycodone-acetaminophen [Percocet] 5-325 mg tablet 1 tab PO Q6H PRN (Reason: pain) Qty: 10 0RF ondansetron 4 mg tablet,disintegrating 4 mg PO Q6-8H PRN (Reason: nausea and vomiting) Qty: 7 0RF ciprofloxacin HCl 500 mg tablet 500 mg PO Q12H 5 Days Qty: 10 0RF cefpodoxime 100 mg tablet 100 mg PO BID Qty: 20 0RF Rx Instructions: must administer with a meal/food ondansetron 4 mg tablet,disintegrating 4 mg PO Q8H PRN (Reason: nausea and vomiting) Qty: 10 0RF clindamycin HCl 150 mg capsule 150 mg PO TID Qty: 20 0RF ibuprofen 400 mg tablet 400 mg PO Q8H PRN (Reason: pain) Qty: 30 0RF lorazepam [Ativan] 1 mg tablet 1 mg PO BID PRN (Reason: anxiety/sleep) Qty: 14 0RF ibuprofen 600 mg tablet 600 mg PO Q8H PRN (Reason: pain) Qty: 30 0RF tramadol 50 mg tablet 50 mg PO Q8H PRN (Reason: pain) Qty: 8 0RF clindamycin HCl 300 mg capsule 300 mg PO Q8H 7 Days Qty: 21 0RF ciprofloxacin-dexamethasone [Ciprodex] 0.3-0.1 % drops,suspension 4 drp otic (ears) BID 7 Days Qty: 7.5 0RF ciprofloxacin HCl [Cipro] 500 mg tablet 500 mg PO BID Qty: 14 0RF famotidine [Pepcid] 20 mg tablet 20 mg PO BID 10 Days Qty: 20 0RF <REVA Mistry - Last Filed: 08/23/22 20:12> Interventions: ED Discharge Assessment Last Done: 08/24/22 01:42 <REVA Mistry - Last Filed: 08/23/22 20:12> Discharge Date/Time: 08/24/22 01:43 <REVA Mistry - Last Filed: 08/23/22 20:12>
--- NOTE | 2022-08-23 20:12 | ECG_ITS ---
Test Reason : DIZZINESS Blood Pressure : / mmHG Vent. Rate : 062 BPM Atrial Rate : 062 BPM P-R Int : 148 ms QRS Dur : 110 ms QT Int : 394 ms P-R-T Axes : 050 031 015 degrees QTc Int : 399 ms Normal sinus rhythm with sinus arrhythmia Minimal voltage criteria for LVH, may be normal variant ( R in aVL ) Borderline ECG When compared with ECG of 30-JUL-2022 20:38, No significant change was found Referred By: Indy Hall Electronically Signed By:RINA BROWN
[2022-08-23 20:59] LABS: HCG Quantitative < 2 mIU/mL
[2022-08-23 21:16] LABS: Troponin-I High Sensitivity < 3.5 ng/L (<3.5-17.0)
[2022-08-24 00:13] VITALS: BP 110/61; PULSE 66; RESP 16; O2SAT 99
== END 2022-08-24 01:43 | disposition home or self-care (01) ==
PROVIDERS: Physician Assistant Medical; Emergency Provider Internal Medicine
DX: R42 Dizziness and giddiness (principal); F41.1 Generalized anxiety disorder; F43.0 Acute stress reaction; R06.02 Shortness of breath; Z20.822 Contact with and (suspected) exposure to COVID-19; Z79.899 Other long term (current) drug therapy
CPT/HCPCS: 36415; 70450; 71046; 80053; 84484; 84702; 85025; 93005; 99284

== ENCOUNTER 2022-08-25 18:51 | Emergency (ER) | payer OTHER, SELFPAY ==
[2022-08-25 19:11] VITALS: BP 144/84; BP 153/93; PULSE 75; PULSE 86; RESP 18; TEMP 36.9; O2SAT 100; BMI 33.7
--- NOTE | 2022-08-25 19:22 | ECG_ITS ---
Test Reason : ANXIETTY Blood Pressure : / mmHG Vent. Rate : 066 BPM Atrial Rate : 066 BPM P-R Int : 142 ms QRS Dur : 108 ms QT Int : 380 ms P-R-T Axes : 056 047 023 degrees QTc Int : 398 ms Normal sinus rhythm Normal ECG When compared with ECG of 23-AUG-2022 20:23, No significant change was found Referred By: Kamar Metzger Electronically Signed By:RINA BROWN
--- NOTE | 2022-08-25 19:23 | ED_ITS ---
HPI - General Adult General Chief complaint: General Medical Stated complaint: anxiety Time Seen by Provider: 08/25/22 19:09 Source: patient and EMS Mode of arrival: EMS Limitations: no limitations History of Present Illness HPI narrative: This is a 27 years old the female presented to the emergency department with multiple complain including low blood sugar headache anxiety. The denies any fevers chills. She has been in the emergency department on August 23 she had blood work today head CT, she was seen in the emergency room as well July 30 for atypical chest pain. Onset (ago): day(s) (1) Location: head Radiation: non-radiation Severity: mild Relieving factors: none Exacerbating factors: none Related Data Previous Rx's Medication Instructions Recorded azithromycin 250 mg tablet 250 mg PO DAILY 5 days #5 tabs 06/14/20 (Zithromax Z-Trevor) clindamycin HCl 300 mg capsule 300 mg PO TID Periorbital 08/15/20 cellulitis 10 days #30 caps erythromycin 5 mg/gram (0.5 %) eye 0.5 inch ophthalmic (eye) TID #3.5 08/15/20 ointment grams ibuprofen 800 mg tablet 800 mg PO Q8H PRN pain #14 tabs 08/15/20 oxycodone-acetaminophen 5 mg-325 1 tab PO Q6H PRN pain #10 tabs 08/15/20 mg tablet (Percocet) lorazepam 0.5 mg tablet (Ativan) 0.5 mg PO BEDTIME PRN anxiety #14 10/31/20 tabs metoclopramide HCl 10 mg tablet 10 mg PO Q6H PRN nausea and 02/22/21 (Reglan) vomiting #14 tabs cyclobenzaprine 5 mg tablet 5 mg PO TID PRN muscle spasm #10 05/10/21 tabs ibuprofen 600 mg tablet 600 mg PO Q6H PRN pain #30 tabs 05/10/21 lorazepam 1 mg tablet (Ativan) 1 mg PO BID PRN anxiety/sleep #14 07/02/21 tabs ondansetron 4 mg disintegrating 4 mg PO Q6-8H PRN nausea and 07/16/21 tablet vomiting #7 tabs ciprofloxacin HCl 500 mg tablet 500 mg PO Q12H 5 days #10 tabs 10/05/21 cefpodoxime 100 mg tablet 100 mg PO BID #20 tabs 10/08/21 clindamycin HCl 300 mg capsule 300 mg PO Q8H 7 days #21 caps 10/22/21 ibuprofen 600 mg tablet 600 mg PO Q8H PRN pain #30 tabs 10/22/21 tramadol 50 mg tablet 50 mg PO Q8H PRN pain #8 tabs 10/22/21 ondansetron 4 mg disintegrating 4 mg PO Q8H PRN nausea and 01/26/22 tablet vomiting #10 tabs ciprofloxacin 0.3 %-dexamethasone 4 drp otic (ears) BID 7 days #7.5 05/06/22 0.1 % ear drops,suspension mL (Ciprodex) ciprofloxacin HCl 500 mg tablet 500 mg PO BID #14 tabs 05/06/22 (Cipro) clindamycin HCl 150 mg capsule 150 mg PO TID #20 caps 06/13/22 ibuprofen 400 mg tablet 400 mg PO Q8H PRN pain #30 tabs 06/13/22 famotidine 20 mg tablet (Pepcid) 20 mg PO BID 10 days #20 tabs 07/31/22 Allergies Allergy/AdvReac Type Severity Reaction Status Date / Time amoxicillin [AMOXICILLIN] Allergy Unknown UNKNOWN Verified 08/25/22 19:20 clavulanic acid Allergy Unknown Unknown Verified 08/25/22 19:20 [From Augmentin] cyclobenzaprine Allergy Palpitation Verified 08/25/22 19:20 [From Flexeril] s Review of Systems Constitutional: Constitutional: Reports no additional constitutional complaints ENT: Reports system reviewed and no additional complaints, except as documented Cardiovascular: Cardiovascular: Reports no additional cardiovascular complaints Respiratory: Respiratory: Reports no additional respiratory complaints Gastrointestinal: Gastrointestinal: Reports no additional gastrointestinal complaints Musculoskeletal: Musculoskeletal: Reports no additional musculoskeletal complaints [facility] Past Medical History Medical History Anemia Anxiety HTN (hypertension) Surgical History H/O: Social History Social History Alcohol intake: never Patient Tobacco Use Status: Never used Tobacco Advance Directives: No Advance Directives Information Provided: No Physical Exam ED Vital Signs: Vital Signs - 24 hr 08/25/22 19:11 Temperature 98.4 F Pulse Rate 75 Respiratory Rate 18 Blood Pressure 144/84 H Pulse Oximetry 100 Oxygen Delivery Method Room Air BMI result Body Mass Index 33.7 Const Other: She looks well she is not toxic-appearing she has a stable vital signs General: cooperative, healthy appearing, comfortable, no acute distress, well developed, alert and awake Nutritional Appearance: well nourished Orientation/consciousness: patient oriented x3 HENMT Head: Yes normal to inspection General nose exam: Normal external nose present Face and sinus: Yes normal facial exam Mouth: Normal oral and palatal mucosa present Teeth and gingiva: dentition normal Neck Neck: Yes normal visual inspection and Yes full ROM Thyroid: Thyroid normal Chest Chest palpation & inspection: normal inspection of the chest Resp Effort & Inspection: normal respiratory effort and able to speak in complete sentences Auscultation: clear to auscultation bilaterally Cardio Rate: regular rate Rhythm: regular rhythm GI Inspection: Yes normal to inspection Palpation (GI): Soft to palpation, not firm, nontender and no guarding Skin General skin exam: no rashes or lesions noted and elasticity normal Lesions: no lesions Rashes: no rashes Neuro General: patient oriented x3 and gait normal Course Reevaluation(s) Reevaluation #1: PATIENT VITAL SIGNS ARE STABLE, SHE IS YOUNG 27 YEARS OLD . I DO NOT THINK WE NEED TO DO ANOTHER CT SCAN SHE HAD A CT SCAN AUGUST 23. I DO NOT THINK WE NEED TO REPEAT THE BLOOD WORK SHE HAD BLOOD WORK ON AUGUST 23 WELL. I THINK THE PATIENT CAN BE SAFELY DISCHARGED HOME Time: 20:10 Medications Administered Discontinued Medications Generic Name Dose Route Start Last Admin Trade Name Freq PRN Reason Stop Dose Admin Lorazepam 0.5 mg 08/25/22 19:38 08/25/22 19:58 Lorazepam 0.5 Mg Tablet PO 08/25/22 19:39 0.5 mg ONCE ONE Administration Medical Decision Making Differential Diagnosis Differential Diagnoses: The differential diagnosis associated with the presentation includes ANXiety/depressio/hypoglicemia/anemia Lab Data MDM Lab Attestation statement: I reviewed the patient's lab results. (blood sugar POC) Labs: Lab Results 08/25/22 Range/Units 19:42 POC Glucose 109 (60-115) mg/dL Independent Interpretation I performed an independent interpretation of an: EKG Interpretation: Normal sinus rhythm a rate [address]-T changes Tests considered The following testing was considered but not selected: I consider to repeat blood test about because were done 2 days ago I will not do no blood test Discharge Plan Discharge Clinical Impression: Weakness Patient Disposition: Home, Self-Care Prescriptions: No Action lorazepam [Ativan] 0.5 mg tablet 0.5 mg PO BEDTIME PRN (Reason: anxiety) Qty: 14 0RF metoclopramide HCl [Reglan] 10 mg tablet 10 mg PO Q6H PRN (Reason: nausea and vomiting) Qty: 14 0RF cyclobenzaprine 5 mg tablet 5 mg PO TID PRN (Reason: muscle spasm) Qty: 10 0RF ibuprofen 600 mg tablet 600 mg PO Q6H PRN (Reason: pain) Qty: 30 0RF azithromycin [Zithromax Z-Trevor] 250 mg tablet 250 mg PO DAILY 5 Days Qty: 5 0RF erythromycin 5 mg/gram (0.5 %) ointment 0.5 inch ophthalmic (eye) TID Qty: 3.5 0RF clindamycin HCl 300 mg capsule 300 mg PO TID 10 Days Qty: 30 0RF ibuprofen 800 mg tablet 800 mg PO Q8H PRN (Reason: pain) Qty: 14 0RF oxycodone-acetaminophen [Percocet] 5-325 mg tablet 1 tab PO Q6H PRN (Reason: pain) Qty: 10 0RF ondansetron 4 mg tablet,disintegrating 4 mg PO Q6-8H PRN (Reason: nausea and vomiting) Qty: 7 0RF ciprofloxacin HCl 500 mg tablet 500 mg PO Q12H 5 Days Qty: 10 0RF cefpodoxime 100 mg tablet 100 mg PO BID Qty: 20 0RF Rx Instructions: must administer with a meal/food ondansetron 4 mg tablet,disintegrating 4 mg PO Q8H PRN (Reason: nausea and vomiting) Qty: 10 0RF clindamycin HCl 150 mg capsule 150 mg PO TID Qty: 20 0RF ibuprofen 400 mg tablet 400 mg PO Q8H PRN (Reason: pain) Qty: 30 0RF lorazepam [Ativan] 1 mg tablet 1 mg PO BID PRN (Reason: anxiety/sleep) Qty: 14 0RF ibuprofen 600 mg tablet 600 mg PO Q8H PRN (Reason: pain) Qty: 30 0RF tramadol 50 mg tablet 50 mg PO Q8H PRN (Reason: pain) Qty: 8 0RF clindamycin HCl 300 mg capsule 300 mg PO Q8H 7 Days Qty: 21 0RF ciprofloxacin-dexamethasone [Ciprodex] 0.3-0.1 % drops,suspension 4 drp otic (ears) BID 7 Days Qty: 7.5 0RF ciprofloxacin HCl [Cipro] 500 mg tablet 500 mg PO BID Qty: 14 0RF famotidine [Pepcid] 20 mg tablet 20 mg PO BID 10 Days Qty: 20 0RF Referrals: Physician,Unknown J [Primary Care Provider] - 2 days
[2022-08-25 19:46] LABS: Glucose, Whole Blood 109 mg/dL (60-115)
[2022-08-25] MEDS: LORazepam 0.5 MG TABLET PO (19:58)
[2022-08-25 20:09] VITALS: BP 138/76; PULSE 72; RESP 19; TEMP 36.7; O2SAT 100
[2022-08-25 21:01] VITALS: BP 125/68; PULSE 69; RESP 16; O2SAT 100
== END 2022-08-25 21:01 | disposition home or self-care (01) ==
PROVIDERS: Emergency Provider Emergency Medicine
DX: F41.1 Generalized anxiety disorder (principal); R51.9 Headache, unspecified; Z79.899 Other long term (current) drug therapy
CPT/HCPCS: 82947; 93005; 99283

== ENCOUNTER 2022-09-16 08:40 | Emergency (ER) | payer OTHER, SELFPAY ==
--- NOTE | ~2022-09-16 | XR_ITS ---
EXAMINATION: XR CHEST CLINICAL INFORMATION: Short of breath COMPARISON: 08/23/2022 TECHNIQUE: 2 views of the chest were obtained. FINDINGS: The lungs are well expanded. There is no focal consolidation, edema, or effusion. No pneumothorax. The cardiomediastinal silhouette is within normal limits. No acute osseous abnormality. XR/XR chest 2V IMPRESSION: Clear lungs.
[2022-09-16 08:44] VITALS: BP 111/75; PULSE 75; RESP 16; TEMP 36.6; O2SAT 100; BMI 32.7
--- NOTE | 2022-09-16 09:10 | ED.GENADULT ---
HPI - General Adult General Chief complaint: General Medical Stated complaint: Cough, High blood sugar Time Seen by Provider: 09/16/22 08:51 Source: patient Mode of arrival: ambulatory Limitations: no limitations History of Present Illness HPI narrative: This is a 27 years old female presented to the emergency department complaining of cough congestion for about a week, denies any fever chills she states she was concern about her blood pressure, patient is known to us multiple ED visit, she also has history of anxiety Onset (ago): day(s) () Radiation: non-radiation Severity: mild Pain Consistency: constant Relieving factors: none Exacerbating factors: none Related Data Previous Rx's Medication Instructions Recorded azithromycin 250 mg tablet 250 mg PO DAILY 5 days #5 tabs 06/14/20 (Zithromax Z-Trevor) clindamycin HCl 300 mg capsule 300 mg PO TID Periorbital 08/15/20 cellulitis 10 days #30 caps erythromycin 5 mg/gram (0.5 %) eye 0.5 inch ophthalmic (eye) TID #3.5 08/15/20 ointment grams ibuprofen 800 mg tablet 800 mg PO Q8H PRN pain #14 tabs 08/15/20 oxycodone-acetaminophen 5 mg-325 1 tab PO Q6H PRN pain #10 tabs 08/15/20 mg tablet (Percocet) lorazepam 0.5 mg tablet (Ativan) 0.5 mg PO BEDTIME PRN anxiety #14 10/31/20 tabs metoclopramide HCl 10 mg tablet 10 mg PO Q6H PRN nausea and 02/22/21 (Reglan) vomiting #14 tabs cyclobenzaprine 5 mg tablet 5 mg PO TID PRN muscle spasm #10 05/10/21 tabs ibuprofen 600 mg tablet 600 mg PO Q6H PRN pain #30 tabs 05/10/21 lorazepam 1 mg tablet (Ativan) 1 mg PO BID PRN anxiety/sleep #14 07/02/21 tabs ondansetron 4 mg disintegrating 4 mg PO Q6-8H PRN nausea and 07/16/21 tablet vomiting #7 tabs ciprofloxacin HCl 500 mg tablet 500 mg PO Q12H 5 days #10 tabs 10/05/21 cefpodoxime 100 mg tablet 100 mg PO BID #20 tabs 10/08/21 clindamycin HCl 300 mg capsule 300 mg PO Q8H 7 days #21 caps 10/22/21 ibuprofen 600 mg tablet 600 mg PO Q8H PRN pain #30 tabs 10/22/21 tramadol 50 mg tablet 50 mg PO Q8H PRN pain #8 tabs 10/22/21 ondansetron 4 mg disintegrating 4 mg PO Q8H PRN nausea and 01/26/22 tablet vomiting #10 tabs ciprofloxacin 0.3 %-dexamethasone 4 drp otic (ears) BID 7 days #7.5 05/06/22 0.1 % ear drops,suspension mL (Ciprodex) ciprofloxacin HCl 500 mg tablet 500 mg PO BID #14 tabs 05/06/22 (Cipro) clindamycin HCl 150 mg capsule 150 mg PO TID #20 caps 06/13/22 ibuprofen 400 mg tablet 400 mg PO Q8H PRN pain #30 tabs 06/13/22 famotidine 20 mg tablet (Pepcid) 20 mg PO BID 10 days #20 tabs 07/31/22 Allergies Allergy/AdvReac Type Severity Reaction Status Date / Time amoxicillin [AMOXICILLIN] Allergy Unknown UNKNOWN Verified 08/25/22 19:20 clavulanic acid Allergy Unknown Unknown Verified 08/25/22 19:20 [From Augmentin] cyclobenzaprine Allergy Palpitation Verified 08/25/22 19:20 [From Flexeril] s Review of Systems Constitutional: Constitutional: Reports no additional constitutional complaints Eyes: Eyes: Reports no additional eye complaints Cardiovascular: Cardiovascular: Reports no additional cardiovascular complaints Respiratory: Respiratory: Reports no additional respiratory complaints Neurologic: Reports system reviewed and no additional complaints, except as documented PMFSH Past Medical History Attestation statement: The following information was validated with the patient. Medical History Anemia Anxiety HTN (hypertension) Surgical History H/O: Social History Social History Alcohol intake: never Patient Tobacco Use Status: Never used Tobacco Advance Directives: No Physical Exam ED Vital Signs: Vital Signs - 24 hr 09/16/22 08:44 Temperature 97.9 F Pulse Rate 75 Respiratory Rate 16 Blood Pressure 111/75 Pulse Oximetry 100 Oxygen Delivery Method Room Air BMI result Body Mass Index 32.7 Const General: cooperative Nutritional Appearance: average body habitus Orientation/consciousness: patient oriented x3 HENMT Head: Yes normal to inspection General nose exam: Normal external nose present Face and sinus: Yes normal facial exam Mouth: Normal oral and palatal mucosa present Neck Neck: Yes normal visual inspection and Yes full ROM Chest Chest palpation & inspection: normal inspection of the chest Resp Effort & Inspection: normal respiratory effort Auscultation: clear to auscultation bilaterally Cardio Jugular venous distension: no JVD Rate: regular rate Rhythm: regular rhythm GI Inspection: Yes normal to inspection Palpation (GI): Soft to palpation, not firm and nontender Skin General skin exam: no rashes or lesions noted, elasticity normal and turgor normal Lesions: no lesions Rashes: no rashes Neuro General: patient oriented x3 Course Reevaluation(s) Reevaluation #1: Feeling much better no shortness of breath no chest pain chest x-ray was negative COVID test was negative will discharge her home Time: 10:24 Medical Decision Making Lab Data Labs: Lab Results 09/16/22 Range/Units 09:16 Influenza Type A (PCR) NEGATIVE (Negative) Influenza Type B (PCR) NEGATIVE (Negative) RSV RNA Qual (PCR) NEGATIVE (Negative) SARS-CoV-2 RNA (RT-PCR) NEGATIVE (Negative) Discharge Plan Discharge Clinical Impression: Shortness of breath Patient Disposition: Home, Self-Care Instructions: Shortness of Breath (ED) Additional Instructions: For follow-up with primary care physician return if you worse Prescriptions: No Action lorazepam [Ativan] 0.5 mg tablet 0.5 mg PO BEDTIME PRN (Reason: anxiety) Qty: 14 0RF metoclopramide HCl [Reglan] 10 mg tablet 10 mg PO Q6H PRN (Reason: nausea and vomiting) Qty: 14 0RF cyclobenzaprine 5 mg tablet 5 mg PO TID PRN (Reason: muscle spasm) Qty: 10 0RF ibuprofen 600 mg tablet 600 mg PO Q6H PRN (Reason: pain) Qty: 30 0RF azithromycin [Zithromax Z-Trevor] 250 mg tablet 250 mg PO DAILY 5 Days Qty: 5 0RF erythromycin 5 mg/gram (0.5 %) ointment 0.5 inch ophthalmic (eye) TID Qty: 3.5 0RF clindamycin HCl 300 mg capsule 300 mg PO TID 10 Days Qty: 30 0RF ibuprofen 800 mg tablet 800 mg PO Q8H PRN (Reason: pain) Qty: 14 0RF oxycodone-acetaminophen [Percocet] 5-325 mg tablet 1 tab PO Q6H PRN (Reason: pain) Qty: 10 0RF ondansetron 4 mg tablet,disintegrating 4 mg PO Q6-8H PRN (Reason: nausea and vomiting) Qty: 7 0RF ciprofloxacin HCl 500 mg tablet 500 mg PO Q12H 5 Days Qty: 10 0RF cefpodoxime 100 mg tablet 100 mg PO BID Qty: 20 0RF Rx Instructions: must administer with a meal/food ondansetron 4 mg tablet,disintegrating 4 mg PO Q8H PRN (Reason: nausea and vomiting) Qty: 10 0RF clindamycin HCl 150 mg capsule 150 mg PO TID Qty: 20 0RF ibuprofen 400 mg tablet 400 mg PO Q8H PRN (Reason: pain) Qty: 30 0RF lorazepam [Ativan] 1 mg tablet 1 mg PO BID PRN (Reason: anxiety/sleep) Qty: 14 0RF ibuprofen 600 mg tablet 600 mg PO Q8H PRN (Reason: pain) Qty: 30 0RF tramadol 50 mg tablet 50 mg PO Q8H PRN (Reason: pain) Qty: 8 0RF clindamycin HCl 300 mg capsule 300 mg PO Q8H 7 Days Qty: 21 0RF ciprofloxacin-dexamethasone [Ciprodex] 0.3-0.1 % drops,suspension 4 drp otic (ears) BID 7 Days Qty: 7.5 0RF ciprofloxacin HCl [Cipro] 500 mg tablet 500 mg PO BID Qty: 14 0RF famotidine [Pepcid] 20 mg tablet 20 mg PO BID 10 Days Qty: 20 0RF Referrals: Physician,Unknown J [Primary Care Provider] - 2 days Interventions: ED Discharge Assessment Last Done: 09/16/22 10:44 Discharge Date/Time: 09/16/22 10:44
[2022-09-16 10:01] LABS: Influenza A PCR NEGATIVE (Negative); Influenza B PCR NEGATIVE (Negative); Resp Syncy Virus RNA Qual PCR NEGATIVE (Negative); SARS COV2 PCR INHOUSE NEGATIVE (Negative)
== END 2022-09-16 10:44 | disposition home or self-care (01) ==
PROVIDERS: Emergency Provider Emergency Medicine
DX: R05.9 Cough, unspecified (principal); R06.02 Shortness of breath; Z20.822 Contact with and (suspected) exposure to COVID-19; Z20.828 Contact with and (suspected) exposure to other viral communicable diseases; Z79.899 Other long term (current) drug therapy
CPT/HCPCS: 0241U; 71046; 99282; 99283

== ENCOUNTER 2022-09-21 11:52 | Emergency (ER) | payer OTHER, SELFPAY ==
[2022-09-21 12:22] VITALS: BP 136/70; PULSE 73; RESP 18; TEMP 36.1; O2SAT 99; BMI 33.0
--- NOTE | 2022-09-21 12:23 | ED.ALLEREA ---
HPI - Allergic Reaction General Chief complaint: Nausea/Vomiting/Diarrhea <REVA Ravi - Last Filed: 09/21/22 12:26> Stated complaint: Reaction to medication/Dry throat/Headache <REVA Ravi - Last Filed: 09/21/22 12:26> Time Seen by Provider: 09/21/22 14:35 <REVA Ravi - Last Filed: 09/21/22 12:26> History of Present Illness HPI narrative: Patient complains of vomiting, anxiety and some diarrhea which started this morning after she took a 1st dose of citalopram which is being started by her doctor for anxiety She felt fine before taking the medication she denies any fever or abdominal pain She was given a Zofran in triage and right now does not feel nauseous and is tolerating p.o. and feels very improved <REVA Finn - Last Filed: 09/21/22 16:32> Related Data Home medications: Previous Rx's Medication Instructions Recorded azithromycin 250 mg tablet 250 mg PO DAILY 5 days #5 tabs 06/14/20 (Zithromax Z-Trevor) clindamycin HCl 300 mg capsule 300 mg PO TID Periorbital 08/15/20 cellulitis 10 days #30 caps erythromycin 5 mg/gram (0.5 %) eye 0.5 inch ophthalmic (eye) TID #3.5 08/15/20 ointment grams ibuprofen 800 mg tablet 800 mg PO Q8H PRN pain #14 tabs 08/15/20 oxycodone-acetaminophen 5 mg-325 1 tab PO Q6H PRN pain #10 tabs 08/15/20 mg tablet (Percocet) lorazepam 0.5 mg tablet (Ativan) 0.5 mg PO BEDTIME PRN anxiety #14 10/31/20 tabs metoclopramide HCl 10 mg tablet 10 mg PO Q6H PRN nausea and 02/22/21 (Reglan) vomiting #14 tabs cyclobenzaprine 5 mg tablet 5 mg PO TID PRN muscle spasm #10 05/10/21 tabs ibuprofen 600 mg tablet 600 mg PO Q6H PRN pain #30 tabs 05/10/21 lorazepam 1 mg tablet (Ativan) 1 mg PO BID PRN anxiety/sleep #14 07/02/21 tabs ondansetron 4 mg disintegrating 4 mg PO Q6-8H PRN nausea and 07/16/21 tablet vomiting #7 tabs ciprofloxacin HCl 500 mg tablet 500 mg PO Q12H 5 days #10 tabs 10/05/21 cefpodoxime 100 mg tablet 100 mg PO BID #20 tabs 10/08/21 clindamycin HCl 300 mg capsule 300 mg PO Q8H 7 days #21 caps 10/22/21 ibuprofen 600 mg tablet 600 mg PO Q8H PRN pain #30 tabs 10/22/21 tramadol 50 mg tablet 50 mg PO Q8H PRN pain #8 tabs 10/22/21 ondansetron 4 mg disintegrating 4 mg PO Q8H PRN nausea and 01/26/22 tablet vomiting #10 tabs ciprofloxacin 0.3 %-dexamethasone 4 drp otic (ears) BID 7 days #7.5 05/06/22 0.1 % ear drops,suspension mL (Ciprodex) ciprofloxacin HCl 500 mg tablet 500 mg PO BID #14 tabs 05/06/22 (Cipro) clindamycin HCl 150 mg capsule 150 mg PO TID #20 caps 06/13/22 ibuprofen 400 mg tablet 400 mg PO Q8H PRN pain #30 tabs 06/13/22 famotidine 20 mg tablet (Pepcid) 20 mg PO BID 10 days #20 tabs 07/31/22 lorazepam 0.5 mg tablet (Ativan) 0.5 mg PO BID PRN anxiety #10 tabs 09/21/22 lorazepam 0.5 mg tablet (Ativan) 0.5 mg PO BID PRN anxiety #10 tabs 09/21/22 ondansetron 4 mg disintegrating 4 mg PO Q6H PRN nausea and 09/21/22 tablet vomiting #7 tabs <REVA Ravi - Last Filed: 09/21/22 12:26> Allergies/adverse reactions: Allergies Allergy/AdvReac Type Severity Reaction Status Date / Time amoxicillin [AMOXICILLIN] Allergy Unknown UNKNOWN Verified 09/21/22 16:08 clavulanic acid Allergy Unknown Unknown Verified 09/21/22 16:08 [From Augmentin] cyclobenzaprine Allergy Palpitation Verified 09/21/22 16:08 [From Flexeril] s <REVA Ravi - Last Filed: 09/21/22 12:26> Review of Systems Review of Systems: Negatives are no fever no chills no dizziness no weakness no fainting no feeling faint no headache no stiff neck no chest pain no shortness of breath no abdominal pain no dysuria no suicidal or homicidal thoughts no desire for self-harm not hearing any voices <REVA Finn - Last Filed: 09/21/22 16:32> Yes all other systems are reviewed and are negative <REVA Finn - Last Filed: 09/21/22 16:32> [facility] Past Medical History Source: nursing notes reviewed <REVA Finn - Last Filed: 09/21/22 16:32> Medical History: Medical History Anemia Anxiety HTN (hypertension) <REVA Ravi - Last Filed: 09/21/22 12:26> Surgical History: Surgical History H/O: <REVA Ravi - Last Filed: 09/21/22 12:26> Social History Social History: Social History Alcohol intake: never Patient Tobacco Use Status: Never used Tobacco Advance Directives: No Advance Directives Information Provided: No <REVA Ravi - Last Filed: 09/21/22 12:26> Physical Exam ED Vital Signs: Vital Signs - 24 hr 09/21/22 12:22 09/21/22 15:08 Temperature 97.0 F 98.0 F Pulse Rate 73 72 Respiratory Rate 18 16 Blood Pressure 136/70 135/74 Pulse Oximetry 99 100 Oxygen Delivery Method Room Air Room Air BMI result Body Mass Index 33.0 <REVA Ravi - Last Filed: 09/21/22 12:26> Vital Signs - 24 hr 09/21/22 12:22 09/21/22 15:08 Temperature 97.0 F 98.0 F Pulse Rate 73 72 Respiratory Rate 18 16 Blood Pressure 136/70 135/74 Pulse Oximetry 99 100 Oxygen Delivery Method Room Air Room Air BMI result Body Mass Index 33.0 <REVA Finn - Last Filed: 09/21/22 16:32> General appearance is no distress Eyes anicteric no pallor Mucous membranes are moist no redness swelling or exudate Neck is supple Chest clear to auscultation bilateral Heart no murmur Abdomen soft nontender Extremities full range of motion x4 Neuro no focal deficits, A&O x3, interaction expression and comprehension are all normal, gait and balance are normal <REVA Finn - Last Filed: 09/21/22 16:32> Course Course Course Narrative: RME - 27 yo female presenting to the ER for evaluation of abdominal pain, vomiting, and diarrhea since she took her 1st dose of citalopram 10 mg. Ongoing nausea and anxiety along with epigastric pain and burning. Will check labs and medicate with zofran and prilosec. Stable to go back to the waiting room until treatment room is available. <REVA Ravi - Last Filed: 09/21/22 12:26> RME - 27 yo female presenting to the ER for evaluation of abdominal pain, vomiting, and diarrhea since she took her 1st dose of citalopram 10 mg. Ongoing nausea and anxiety along with epigastric pain and burning. Will check labs and medicate with zofran and prilosec. Stable to go back to the waiting room until treatment room is available. Patient is now not nauseous, eating and drinking when I entered the room and without complaint Physical exam was normal with no abdominal tenderness Labs were checked with no acute emergent findings and well-appearing patient was discharged home She was advised to stop the citalopram and discuss with her doctor wears there she should continue it In the meantime I wrote her for some Ativan to take as needed for anxiety attacks <REVA Finn - Last Filed: 09/21/22 16:32> Medications Administered Discontinued Medications Generic Name Dose Route Start Last Admin Trade Name Freq PRN Reason Stop Dose Admin Omeprazole 40 mg 09/21/22 12:24 09/21/22 14:56 Omeprazole 40 Mg Capsule. PO 09/21/22 12:25 40 mg ONCE ONE Administration Ondansetron HCl 4 mg 09/21/22 12:24 09/21/22 12:29 Ondansetron Odt 4 Mg Tab.Rapdis TRANSLINGU 09/21/22 12:25 4 mg ONCE ONE Administration <REVA Ravi Last Filed: 09/21/22 12:26> Medications Administered Discontinued Medications Generic Name Dose Route Start Last Admin Trade Name Bob PRN Reason Stop Dose Admin Omeprazole 40 mg 09/21/22 12:24 09/21/22 14:56 Omeprazole 40 Mg Capsule.Dr HESS 09/21/22 12:25 40 mg ONCE ONE Administration Ondansetron HCl 4 mg 09/21/22 12:24 09/21/22 12:29 Ondansetron Odt 4 Mg Tab.Rapdis TRANSLINGU 09/21/22 12:25 4 mg ONCE ONE Administration <REVA Finn - Last Filed: 09/21/22 16:32> Medical Decision Making Lab Data MDM Lab Attestation statement: I reviewed the patient's lab results. <REVA Finn - Last Filed: 09/21/22 16:32> Result Diagrams: 09/21/22 12:42 09/21/22 12:42 <REVA Ravi - Last Filed: 09/21/22 12:26> Labs: Lab Results 09/21/22 09/21/22 Range/Units 12:42 12:42 WBC 9.9 (4.8-10.8) X10*3/uL RBC 4.88 (4.20-5.50) X10*6/uL Hgb 11.0 L (12.0-16.0) g/dl Hct 36.0 L (37.0-47.0) % MCV 73.8 L (80.0-98.0) fL MCH 22.5 L (27.0-33.0) pg MCHC 30.6 L (31.0-35.0) g/dl RDW 15.2 (11.0-16.0) % Plt Count 384 (160-400) X10*3/uL MPV 11.1 (9.4-12.3) fL Immature Gran % (Auto) 0.5 H (0.0-0.4) % Neut % (Auto) 59.4 (45-73) % Lymph % (Auto) 29.4 (20-40) % [place] % (Auto) 6.6 (2-11) % Eos % (Auto) 3.3 (0-4) % Baso % (Auto) 0.8 (0-2) % Lymph # (Auto) 2.9 (1.2-4.9) X10*3/uL [place] # (Auto) 0.7 (0.1-1.2) X10*3/uL Eos # (Auto) 0.3 (0.0-0.4) X10*3/uL Baso # (Auto) 0.1 (0.0-0.2) X10*3/uL Abs Immat Gran (auto) 0.05 H (0.00-0.03) X10*3/uL Absolute Neuts (auto) 5.9 (2.0-8.3) x10*3/uL Absolute Nucleated RBC 0.000 (0.0-0.012) X10*3/uL Nucleated RBC % (auto) 0.0 (0.0-0.2) /100WBC Sodium 138 (135-145) mmol/L Potassium 4.7 (3.3-5.1) mmol/L Chloride 104 (96-108) mmol/L Carbon Dioxide 27 (22-29) mmol/L Anion Gap 12 (12-20) BUN 10 (9-16) mg/dL Creatinine 0.82 (0.5-1.4) mg/dL Estim Creat Clear Calc 93.6 Estimated GFR > 60 Random Glucose 101 (60-115) mg/dL Calcium 10.2 (8.4-10.2) mg/dL Magnesium 2.2 (1.6-2.6) mg/dL Total Bilirubin 0.2 (0.0-1.0) mg/dL Direct Bilirubin < 0.2 (0.0-0.5) mg/dL AST 13 (5-31) U/L ALT 13 (0-31) U/L Alkaline Phosphatase 78 (39-117) U/L Total Protein 8.3 H (6.5-8.0) g/dL Albumin 4.5 (3.5-5.0) g/dL Lipase 32 (8-78) U/L <REVA Ravi - Last Filed: 09/21/22 12:26> Lab Results 09/21/22 09/21/22 Range/Units 12:42 12:42 WBC 9.9 (4.8-10.8) X10*3/uL RBC 4.88 (4.20-5.50) X10*6/uL Hgb 11.0 L (12.0-16.0) g/dl Hct 36.0 L (37.0-47.0) % MCV 73.8 L (80.0-98.0) fL MCH 22.5 L (27.0-33.0) pg MCHC 30.6 L (31.0-35.0) g/dl RDW 15.2 (11.0-16.0) % Plt Count 384 (160-400) X10*3/uL MPV 11.1 (9.4-12.3) fL Immature Gran % (Auto) 0.5 H (0.0-0.4) % Neut % (Auto) 59.4 (45-73) % Lymph % (Auto) 29.4 (20-40) % [place] % (Auto) 6.6 (2-11) % Eos % (Auto) 3.3 (0-4) % Baso % (Auto) 0.8 (0-2) % Lymph # (Auto) 2.9 (1.2-4.9) X10*3/uL [place] # (Auto) 0.7 (0.1-1.2) X10*3/uL Eos # (Auto) 0.3 (0.0-0.4) X10*3/uL Baso # (Auto) 0.1 (0.0-0.2) X10*3/uL Abs Immat Gran (auto) 0.05 H (0.00-0.03) X10*3/uL Absolute Neuts (auto) 5.9 (2.0-8.3) x10*3/uL Absolute Nucleated RBC 0.000 (0.0-0.012) X10*3/uL Nucleated RBC % (auto) 0.0 (0.0-0.2) /100WBC Sodium 138 (135-145) mmol/L Potassium 4.7 (3.3-5.1) mmol/L Chloride 104 (96-108) mmol/L Carbon Dioxide 27 (22-29) mmol/L Anion Gap 12 (12-20) BUN 10 (9-16) mg/dL Creatinine 0.82 (0.5-1.4) mg/dL Estim Creat Clear Calc 93.6 Estimated GFR > 60 Random Glucose 101 (60-115) mg/dL Calcium 10.2 (8.4-10.2) mg/dL Magnesium 2.2 (1.6-2.6) mg/dL Total Bilirubin 0.2 (0.0-1.0) mg/dL Direct Bilirubin < 0.2 (0.0-0.5) mg/dL AST 13 (5-31) U/L ALT 13 (0-31) U/L Alkaline Phosphatase 78 (39-117) U/L Total Protein 8.3 H (6.5-8.0) g/dL Albumin 4.5 (3.5-5.0) g/dL Lipase 32 (8-78) U/L <REVA Finn - Last Filed: 09/21/22 16:32> Discharge Plan Discharge Clinical Impression: Medication reaction <REVA Ravi - Last Filed: 09/21/22 12:26> Patient Disposition: Home, Self-Care <REVA Ravi - Last Filed: 09/21/22 12:26> Additional Instructions: It is possible that you had a reaction to citalopram after taking the 1st dose Best plan is do not take it until you have spoken to her doctor and he will hop you decide if you should continue the medicine I wrote for Zofran if needed for nausea and a few Ativan if needed for anxiety Return any time any worse condition or any concerns <REVA Ravi - Last Filed: 09/21/22 12:26> Prescriptions: New lorazepam [Ativan] 0.5 mg tablet 0.5 mg PO BID PRN (Reason: anxiety) Qty: 10 0RF ondansetron 4 mg tablet,disintegrating 4 mg PO Q6H PRN (Reason: nausea and vomiting) Qty: 7 0RF lorazepam [Ativan] 0.5 mg tablet 0.5 mg PO BID PRN (Reason: anxiety) Qty: 10 0RF No Action lorazepam [Ativan] 0.5 mg tablet 0.5 mg PO BEDTIME PRN (Reason: anxiety) Qty: 14 0RF metoclopramide HCl [Reglan] 10 mg tablet 10 mg PO Q6H PRN (Reason: nausea and vomiting) Qty: 14 0RF cyclobenzaprine 5 mg tablet 5 mg PO TID PRN (Reason: muscle spasm) Qty: 10 0RF ibuprofen 600 mg tablet 600 mg PO Q6H PRN (Reason: pain) Qty: 30 0RF azithromycin [Zithromax Z-Trevor] 250 mg tablet 250 mg PO DAILY 5 Days Qty: 5 0RF erythromycin 5 mg/gram (0.5 %) ointment 0.5 inch ophthalmic (eye) TID Qty: 3.5 0RF clindamycin HCl 300 mg capsule 300 mg PO TID 10 Days Qty: 30 0RF ibuprofen 800 mg tablet 800 mg PO Q8H PRN (Reason: pain) Qty: 14 0RF oxycodone-acetaminophen [Percocet] 5-325 mg tablet 1 tab PO Q6H PRN (Reason: pain) Qty: 10 0RF ondansetron 4 mg tablet,disintegrating 4 mg PO Q6-8H PRN (Reason: nausea and vomiting) Qty: 7 0RF ciprofloxacin HCl 500 mg tablet 500 mg PO Q12H 5 Days Qty: 10 0RF cefpodoxime 100 mg tablet 100 mg PO BID Qty: 20 0RF Rx Instructions: must administer with a meal/food ondansetron 4 mg tablet,disintegrating 4 mg PO Q8H PRN (Reason: nausea and vomiting) Qty: 10 0RF clindamycin HCl 150 mg capsule 150 mg PO TID Qty: 20 0RF ibuprofen 400 mg tablet 400 mg PO Q8H PRN (Reason: pain) Qty: 30 0RF lorazepam [Ativan] 1 mg tablet 1 mg PO BID PRN (Reason: anxiety/sleep) Qty: 14 0RF ibuprofen 600 mg tablet 600 mg PO Q8H PRN (Reason: pain) Qty: 30 0RF tramadol 50 mg tablet 50 mg PO Q8H PRN (Reason: pain) Qty: 8 0RF clindamycin HCl 300 mg capsule 300 mg PO Q8H 7 Days Qty: 21 0RF ciprofloxacin-dexamethasone [Ciprodex] 0.3-0.1 % drops,suspension 4 drp otic (ears) BID 7 Days Qty: 7.5 0RF ciprofloxacin HCl [Cipro] 500 mg tablet 500 mg PO BID Qty: 14 0RF famotidine [Pepcid] 20 mg tablet 20 mg PO BID 10 Days Qty: 20 0RF <REVA Ravi - Last Filed: 09/21/22 12:26>
[2022-09-21] MEDS: Ondansetron ODT 4 MG TAB.RAPDIS TRANSLINGU (12:29)
[2022-09-21 12:59] LABS: MANUAL DIFF FLAG NO
[2022-09-21 13:08] LABS: Basophils Absolute Auto 0.1 X10*3/uL (0.0-0.2); Basophils Percent Auto 0.8 % (0-2); Eosinophils Absolute Auto 0.3 X10*3/uL (0.0-0.4); Eosinophils Percent Auto 3.3 % (0-4); Imm Gran Abs Auto 0.05 X10*3/uL (0.00-0.03); Imm Gran Pct Auto 0.5 % (0.0-0.4); Lymphocytes Absolute Auto 2.9 X10*3/uL (1.2-4.9); Lymphocytes Percent Auto 29.4 % (20-40); Mean Corpuscular HGB Conc 30.6 g/dl (31.0-35.0); Mean Corpuscular Hemoglobin 22.5 pg (27.0-33.0); Mean Corpuscular Volume 73.8 fL (80.0-98.0); Mean Platelet Volume 11.1 fL (9.4-12.3); Monocytes Absolute Auto 0.7 X10*3/uL (0.1-1.2); Monocytes Percent Auto 6.6 % (2-11); Neutrophils Absolute Auto 5.9 x10*3/uL (2.0-8.3); Neutrophils Percent Auto 59.4 % (45-73); Platelet Count 384 X10*3/uL (160-400); Red Blood Count 4.88 X10*6/uL (4.20-5.50); Red Cell Distribution Width 15.2 % (11.0-16.0); White Blood Count 9.9 X10*3/uL (4.8-10.8)
[2022-09-21 13:30] LABS: Alanine Aminotransferase 13 U/L (0-31); Albumin Level 4.5 g/dL (3.5-5.0); Alkaline Phosphatase 78 U/L (39-117); Anion Gap 12 (12-20); Aspartate Amino Transferase 13 U/L (5-31); Bilirubin Direct < 0.2 mg/dL (0.0-0.5); Bilirubin Total 0.2 mg/dL (0.0-1.0); Blood Urea Nitrogen 10 mg/dL (9-16); Calcium 10.2 mg/dL (8.4-10.2); Carbon Dioxide 27 mmol/L (22-29); Chloride 104 mmol/L (96-108); Creatinine Clr Calc Pharmacy 93.6; Estimated Glomerular Filt Rate > 60; Glucose Random 101 mg/dL (60-115); Lipase 32 U/L (8-78); Magnesium 2.2 mg/dL (1.6-2.6); Potassium 4.7 mmol/L (3.3-5.1); Sodium 138 mmol/L (135-145); Total Protein 8.3 g/dL (6.5-8.0)
[2022-09-21] MEDS: Omeprazole 40 MG CAPSULE.DR PO (14:56)
[2022-09-21 15:08] VITALS: BP 135/74; PULSE 72; RESP 16; TEMP 36.7; O2SAT 100
--- NOTE | 2022-09-21 15:40 | PC.NURSE ---
patient a/ox4 . VSS . went over discharge instructions as ordered by provider . patient to follow up with primary care . no questions at this time .
[2022-09-21 16:45] LABS: Glucose, Whole Blood 88 mg/dL (60-115)
== END 2022-09-21 15:41 | disposition home or self-care (01) ==
PROVIDERS: Physician Assistant; Emergency Provider Emergency Medicine
DX: R10.13 Epigastric pain (principal); R11.2 Nausea with vomiting, unspecified; F41.1 Generalized anxiety disorder; F43.0 Acute stress reaction; Z79.899 Other long term (current) drug therapy
CPT/HCPCS: 36415; 80048; 80076; 82947; 83690; 83735; 85025; 99283; 99284

== ENCOUNTER 2022-09-21 16:00 | Emergency (ER) | payer OTHER, SELFPAY ==
[2022-09-21 16:03] VITALS: BP 148/82; PULSE 70; RESP 18; TEMP 36.1; O2SAT 98; BMI 33.4
--- NOTE | 2022-09-21 16:05 | ED_ITS ---
HPI - Dizziness General Chief Complaint: General Medical Stated Complaint: dizzy, blood sugar check Time Seen by Provider: 09/21/22 16:22 Source: patient Mode of arrival: ambulatory Limitations: no limitations History of Present Illness HPI Narrative: 27 yo [place] speaking female who was just discharged from [facility] 5 minutes ago for N/V/D after taking her 1st dose of anxiety medication presents back to the ER for evaluation of dizziness and burning sensation all over her body. She states she suffers from low glucose. POC was 88 prior to d/c. She is drinking gatorade. No chest pain, SOB, headache, vomiting. She reports history of anxiety but does not feel anxious at this time. MD elicited complaint: dizziness Onset (ago): minute(s) Timing: sudden onset Severity: moderate Description: lightheadedness Context: change in medication and anxiety History of similar symptoms: Yes Exacerbating factors: nothing Relieving factors: rehydration Associated symptoms: denies other symptoms Related Data Previous Rx's Medication Instructions Recorded azithromycin 250 mg tablet 250 mg PO DAILY 5 days #5 tabs 06/14/20 (Zithromax Z-Trevor) clindamycin HCl 300 mg capsule 300 mg PO TID Periorbital 08/15/20 cellulitis 10 days #30 caps erythromycin 5 mg/gram (0.5 %) eye 0.5 inch ophthalmic (eye) TID #3.5 08/15/20 ointment grams ibuprofen 800 mg tablet 800 mg PO Q8H PRN pain #14 tabs 08/15/20 oxycodone-acetaminophen 5 mg-325 1 tab PO Q6H PRN pain #10 tabs 08/15/20 mg tablet (Percocet) lorazepam 0.5 mg tablet (Ativan) 0.5 mg PO BEDTIME PRN anxiety #14 10/31/20 tabs metoclopramide HCl 10 mg tablet 10 mg PO Q6H PRN nausea and 02/22/21 (Reglan) vomiting #14 tabs cyclobenzaprine 5 mg tablet 5 mg PO TID PRN muscle spasm #10 05/10/21 tabs ibuprofen 600 mg tablet 600 mg PO Q6H PRN pain #30 tabs 05/10/21 lorazepam 1 mg tablet (Ativan) 1 mg PO BID PRN anxiety/sleep #14 07/02/21 tabs ondansetron 4 mg disintegrating 4 mg PO Q6-8H PRN nausea and 07/16/21 tablet vomiting #7 tabs ciprofloxacin HCl 500 mg tablet 500 mg PO Q12H 5 days #10 tabs 10/05/21 cefpodoxime 100 mg tablet 100 mg PO BID #20 tabs 10/08/21 clindamycin HCl 300 mg capsule 300 mg PO Q8H 7 days #21 caps 10/22/21 ibuprofen 600 mg tablet 600 mg PO Q8H PRN pain #30 tabs 10/22/21 tramadol 50 mg tablet 50 mg PO Q8H PRN pain #8 tabs 10/22/21 ondansetron 4 mg disintegrating 4 mg PO Q8H PRN nausea and 01/26/22 tablet vomiting #10 tabs ciprofloxacin 0.3 %-dexamethasone 4 drp otic (ears) BID 7 days #7.5 05/06/22 0.1 % ear drops,suspension mL (Ciprodex) ciprofloxacin HCl 500 mg tablet 500 mg PO BID #14 tabs 05/06/22 (Cipro) clindamycin HCl 150 mg capsule 150 mg PO TID #20 caps 06/13/22 ibuprofen 400 mg tablet 400 mg PO Q8H PRN pain #30 tabs 06/13/22 famotidine 20 mg tablet (Pepcid) 20 mg PO BID 10 days #20 tabs 07/31/22 lorazepam 0.5 mg tablet (Ativan) 0.5 mg PO BID PRN anxiety #10 tabs 09/21/22 lorazepam 0.5 mg tablet (Ativan) 0.5 mg PO BID PRN anxiety #10 tabs 09/21/22 ondansetron 4 mg disintegrating 4 mg PO Q6H PRN nausea and 09/21/22 tablet vomiting #7 tabs Allergies Allergy/AdvReac Type Severity Reaction Status Date / Time amoxicillin [AMOXICILLIN] Allergy Unknown UNKNOWN Verified 09/21/22 16:08 clavulanic acid Allergy Unknown Unknown Verified 09/21/22 16:08 [From Augmentin] cyclobenzaprine Allergy Palpitation Verified 09/21/22 16:08 [From Flexeril] s Review of Systems Review of Systems: Yes all other systems are reviewed and are negative PMFSH Past Medical History Medical History Anemia Anxiety HTN (hypertension) Surgical History H/O: Social History Social History Alcohol intake: never Patient Tobacco Use Status: Never used Tobacco Advance Directives: No Advance Directives Information Provided: No Physical Exam Vital Signs: Vital Signs: Last Vital Signs Temp 97.0 F 09/21/22 16:03 Pulse 70 09/21/22 16:03 Resp 18 09/21/22 16:03 BP 148/82 H 09/21/22 16:03 Pulse Ox 98 09/21/22 16:03 O2 Del Method 09/21/22 16:03 BMI result Body Mass Index 33.4 Appearance: Alert. Oriented X3. No acute distress. HEENT: normal inspection CVS: Normal heart rate and rhythm. Pulses normal. Respiratory: No respiratory distress. Lungs clear. Skin: Skin warm and dry. Normal skin color. Normal skin turgor. No rashes. Extremities: normal inspection x4 Neuro: Oriented X 3. Grossly normal, nonfocal Course Course Course Narrative: RME - 27 yo female presents to the ER for evaluation of dizziness and whole body burning sensation that started just before she was discharged a few minutes ago. She reports history of hypoglycemia at home. Feels like her head is drunk. Reports history of anxiety. Will repeat POC. Reevaluation(s) Reevaluation #1: POC 111. Feeling better. stable for d/c. Medical Decision Making Medical Decision Making [facility] Narrative: 19-year-old female who was just seen in the [facility] care area and had lab work done for a adverse medication reaction presents to the ER for evaluation of dizziness and ?burning throughout her whole body. ? Labs were reviewed and were normal. She appears well. Her vitals are stable. Most likely an anxiety reaction. Less likely hypoglycemia or hyperglycemia. Will check point of care Differential Diagnosis Differential Diagnoses: The differential diagnosis associated with the presentation includes Anxiety reaction, hypoglycemia, hyperglycemia, less likely vertigo Lab Data [facility] Lab Attestation statement: I reviewed the patient's lab results. Point of care is normal Labs from a few hours ago were reviewed, no major metabolic derangements. Labs: Lab Results 09/21/22 Range/Units 16:14 POC Glucose 111 (60-115) mg/dL External Record Review External record reviewed: Outpatient record Discharge Plan Discharge Clinical Impression: Anxiety Patient Disposition: Home, Self-Care Instructions: Anxiety (ED) Additional Instructions: Your lab workup today was normal. Your glucose was 111, this is normal reading. Your symptoms rest likely due to anxiety. Recommend following up with your primary care doctor. Prescriptions: No Action lorazepam [Ativan] 0.5 mg tablet 0.5 mg PO BEDTIME PRN (Reason: anxiety) Qty: 14 0RF metoclopramide HCl [Reglan] 10 mg tablet 10 mg PO Q6H PRN (Reason: nausea and vomiting) Qty: 14 0RF cyclobenzaprine 5 mg tablet 5 mg PO TID PRN (Reason: muscle spasm) Qty: 10 0RF ibuprofen 600 mg tablet 600 mg PO Q6H PRN (Reason: pain) Qty: 30 0RF azithromycin [Zithromax Z-Trevor] 250 mg tablet 250 mg PO DAILY 5 Days Qty: 5 0RF erythromycin 5 mg/gram (0.5 %) ointment 0.5 inch ophthalmic (eye) TID Qty: 3.5 0RF clindamycin HCl 300 mg capsule 300 mg PO TID 10 Days Qty: 30 0RF ibuprofen 800 mg tablet 800 mg PO Q8H PRN (Reason: pain) Qty: 14 0RF oxycodone-acetaminophen [Percocet] 5-325 mg tablet 1 tab PO Q6H PRN (Reason: pain) Qty: 10 0RF ondansetron 4 mg tablet,disintegrating 4 mg PO Q6-8H PRN (Reason: nausea and vomiting) Qty: 7 0RF ciprofloxacin HCl 500 mg tablet 500 mg PO Q12H 5 Days Qty: 10 0RF cefpodoxime 100 mg tablet 100 mg PO BID Qty: 20 0RF Rx Instructions: must administer with a meal/food ondansetron 4 mg tablet,disintegrating 4 mg PO Q8H PRN (Reason: nausea and vomiting) Qty: 10 0RF clindamycin HCl 150 mg capsule 150 mg PO TID Qty: 20 0RF ibuprofen 400 mg tablet 400 mg PO Q8H PRN (Reason: pain) Qty: 30 0RF lorazepam [Ativan] 0.5 mg tablet 0.5 mg PO BID PRN (Reason: anxiety) Qty: 10 0RF ondansetron 4 mg tablet,disintegrating 4 mg PO Q6H PRN (Reason: nausea and vomiting) Qty: 7 0RF lorazepam [Ativan] 0.5 mg tablet 0.5 mg PO BID PRN (Reason: anxiety) Qty: 10 0RF lorazepam [Ativan] 1 mg tablet 1 mg PO BID PRN (Reason: anxiety/sleep) Qty: 14 0RF ibuprofen 600 mg tablet 600 mg PO Q8H PRN (Reason: pain) Qty: 30 0RF tramadol 50 mg tablet 50 mg PO Q8H PRN (Reason: pain) Qty: 8 0RF clindamycin HCl 300 mg capsule 300 mg PO Q8H 7 Days Qty: 21 0RF ciprofloxacin-dexamethasone [Ciprodex] 0.3-0.1 % drops,suspension 4 drp otic (ears) BID 7 Days Qty: 7.5 0RF ciprofloxacin HCl [Cipro] 500 mg tablet 500 mg PO BID Qty: 14 0RF famotidine [Pepcid] 20 mg tablet 20 mg PO BID 10 Days Qty: 20 0RF Interventions: ED Discharge Assessment Last Done: 09/21/22 16:25 Discharge Date/Time: 09/21/22 16:27 Print Language: Namibian
[2022-09-21 16:45] LABS: Glucose, Whole Blood 111 mg/dL (60-115)
== END 2022-09-21 16:27 | disposition home or self-care (01) ==
PROVIDERS: Emergency Provider Emergency Medicine
DX: R42 Dizziness and giddiness (principal); F41.1 Generalized anxiety disorder; F43.0 Acute stress reaction; Z79.899 Other long term (current) drug therapy
CPT/HCPCS: 82947; 99282

== ENCOUNTER 2022-12-05 03:58 | Emergency (ER) | payer OTHER, SELFPAY ==
--- NOTE | 2022-12-05 | ECG_ITS ---
Test Reason : CHEST PAIN Blood Pressure : / mmHG Vent. Rate : 066 BPM Atrial Rate : 066 BPM P-R Int : 146 ms QRS Dur : 114 ms QT Int : 396 ms P-R-T Axes : 057 042 019 degrees QTc Int : 415 ms Normal sinus rhythm Normal ECG When compared with ECG of 25-AUG-2022 19:30, No significant change was found Referred By: Shwetha Eller Electronically Signed By:RINA BROWN
--- NOTE | ~2022-12-05 | XR_ITS ---
EXAMINATION: XR CHEST CLINICAL INFORMATION: Chest pain COMPARISON: 10/06/2022 TECHNIQUE: Frontal view of the chest was obtained. FINDINGS: Cardiac leads overlie the chest. The lungs are well expanded. There is no focal consolidation, edema, or effusion. No pneumothorax. The cardiomediastinal silhouette is within normal limits. No acute osseous abnormality. XR/XR chest 1V IMPRESSION: Clear lungs.
[2022-12-05 04:10] VITALS: BP 137/96; BP 151/85; PULSE 82; PULSE 86; RESP 18; TEMP 36.9; O2SAT 100; O2SAT 99; BMI 31.1
--- NOTE | 2022-12-05 04:33 | ED_ITS ---
HPI - General Adult General Chief complaint: General Medical Stated complaint: Chest Pain Time Seen by Provider: 12/05/22 04:03 History of Present Illness HPI narrative: Patient is a 27-year-old female presents today with having pain in the chest. That is burning like the patient claims worse with lying down. She has some home. Positive history of borderline diabetes. Positive history of high blood pressure. No history of high cholesterol no smoking no heart attack. Patient from home. No cough and congestion or respiratory symptoms. No diaphoresis. The symptoms are constant. Related Data Previous Rx's Medication Instructions Recorded azithromycin 250 mg tablet 250 mg PO DAILY 5 days #5 tabs 06/14/20 (Zithromax Z-Trevor) clindamycin HCl 300 mg capsule 300 mg PO TID Periorbital 08/15/20 cellulitis 10 days #30 caps erythromycin 5 mg/gram (0.5 %) eye 0.5 inch ophthalmic (eye) TID #3.5 08/15/20 ointment grams ibuprofen 800 mg tablet 800 mg PO Q8H PRN pain #14 tabs 08/15/20 oxycodone-acetaminophen 5 mg-325 1 tab PO Q6H PRN pain #10 tabs 08/15/20 mg tablet (Percocet) lorazepam 0.5 mg tablet (Ativan) 0.5 mg PO BEDTIME PRN anxiety #14 10/31/20 tabs metoclopramide HCl 10 mg tablet 10 mg PO Q6H PRN nausea and 02/22/21 (Reglan) vomiting #14 tabs cyclobenzaprine 5 mg tablet 5 mg PO TID PRN muscle spasm #10 05/10/21 tabs ibuprofen 600 mg tablet 600 mg PO Q6H PRN pain #30 tabs 05/10/21 lorazepam 1 mg tablet (Ativan) 1 mg PO BID PRN anxiety/sleep #14 07/02/21 tabs ondansetron 4 mg disintegrating 4 mg PO Q6-8H PRN nausea and 07/16/21 tablet vomiting #7 tabs ciprofloxacin HCl 500 mg tablet 500 mg PO Q12H 5 days #10 tabs 10/05/21 cefpodoxime 100 mg tablet 100 mg PO BID #20 tabs 10/08/21 clindamycin HCl 300 mg capsule 300 mg PO Q8H 7 days #21 caps 10/22/21 ibuprofen 600 mg tablet 600 mg PO Q8H PRN pain #30 tabs 10/22/21 tramadol 50 mg tablet 50 mg PO Q8H PRN pain #8 tabs 10/22/21 ondansetron 4 mg disintegrating 4 mg PO Q8H PRN nausea and 01/26/22 tablet vomiting #10 tabs ciprofloxacin 0.3 %-dexamethasone 4 drp otic (ears) BID 7 days #7.5 05/06/22 0.1 % ear drops,suspension mL (Ciprodex) ciprofloxacin HCl 500 mg tablet 500 mg PO BID #14 tabs 05/06/22 (Cipro) clindamycin HCl 150 mg capsule 150 mg PO TID #20 caps 06/13/22 ibuprofen 400 mg tablet 400 mg PO Q8H PRN pain #30 tabs 06/13/22 famotidine 20 mg tablet (Pepcid) 20 mg PO BID 10 days #20 tabs 07/31/22 lorazepam 0.5 mg tablet (Ativan) 0.5 mg PO BID PRN anxiety #10 tabs 09/21/22 lorazepam 0.5 mg tablet (Ativan) 0.5 mg PO BID PRN anxiety #10 tabs 09/21/22 ondansetron 4 mg disintegrating 4 mg PO Q6H PRN nausea and 09/21/22 tablet vomiting #7 tabs pantoprazole 40 mg tablet,delayed 40 mg PO DAILY #14 tabs 12/05/22 release (Protonix) Allergies Allergy/AdvReac Type Severity Reaction Status Date / Time amoxicillin [AMOXICILLIN] Allergy Unknown UNKNOWN Verified 12/05/22 05:02 clavulanic acid Allergy Unknown Unknown Verified 12/05/22 05:02 [From Augmentin] cyclobenzaprine Allergy Palpitation Verified 12/05/22 05:02 [From Flexeril] s escitalopram Allergy Palpitation Verified 12/05/22 05:02 s Review of Systems Review of Systems: Positive burning sensation to the chest Yes all other systems are reviewed and are negative PMFSH Past Medical History Attestation statement: The following information was validated with the patient. Medical History Anemia Anxiety HTN (hypertension) Surgical History H/O: Social History Social History Alcohol intake: never Patient Tobacco Use Status: Never used Tobacco Smoked in Last 30 Days: No Use of substances other than those prescribed or required for medical reasons: No Advance Directives: No Patient : No Physical Exam ED Vital Signs: Vital Signs - 24 hr 12/05/22 04:10 12/05/22 04:58 Temperature 98.5 F Pulse Rate 82 78 Respiratory Rate 18 14 Blood Pressure 137/96 H 127/60 Pulse Oximetry 99 99 Oxygen Delivery Method Room Air Room Air BMI result Body Mass Index 31.1 Appearance: Alert. Oriented X3. No acute distress. Eyes: Pupils equal, round and reactive to light. ENT: Pharynx normal. Neck: Normal inspection. Neck supple. No lymph nodes noted. No crepitus CVS: Normal heart rate and rhythm. Pulses normal. Normal S1 and S2 Respiratory: No respiratory distress. Breath sounds normal. No Wheezing. No rales Abdomen: Soft and nontender. No rigidity. No distention. good BS x4 Skin: Skin warm and dry. Normal skin color. Normal skin turgor. Extremities: No lower extremity edema. Neurovascular intact to all extremities. No Lacerations. No Rash Neuro: Oriented X 3. No motor deficit. No sensory deficit. Moving all extermities. No slurred speech Medications Administered Discontinued Medications Generic Name Dose Route Start Last Admin Trade Name Freq PRN Reason Stop Dose Admin Al Hydroxide/Mg Hydroxide 30 ml 12/05/22 04:27 12/05/22 04:53 Magnesium Hydrox/Alum Hydrox 30 Ml Oral.Susp PO 12/05/22 04:28 30 ml ONCE ONE Administration Belladonna Alkaloids/Phenobarbital 10 ml 12/05/22 04:27 12/05/22 04:54 Phenobarb/Hyoscy/Atropine/Scop 10 Ml Elixir PO 12/05/22 04:28 10 ml ONCE ONE Administration Lidocaine HCl 15 ml 12/05/22 04:27 12/05/22 04:53 Lidocaine Hcl Viscous 2 % 15 Ml Solution MUCOUS MEM 12/05/22 04:28 15 ml ONCE ONE Administration Medical Decision Making Medical Decision Making MDM Narrative: Positive pain in his chest. Burning in nature. Patient is 27 years old. Positive history of borderline diabetes, hypertension patient does not have a family history of CAD. No risk for PE. The pain is not associated with shortness of breath or diaphoresis. Atypical for ACS. Cardiac enzyme was negative. Patient's EKG by my interpretation shows a sinus pattern heart rate is 65 KS QRS QT within normal limits there is no acute ST segment elevation noted. Patient's heart score is less than 3. Chest x-ray was done there is no evidence for pneumonia no pneumothorax. Symptoms most likely secondary to reflux. Will start patient on PPI. For patient follow-up on an outpatient basis. Differential Diagnosis Reflux, ACS, PE, pneumonia pneumothorax Lab Data 12/05/22 04:54 12/05/22 04:54 Labs: Lab Results 12/05/22 12/05/22 12/05/22 Range/Units 04:54 04:54 04:54 WBC 9.1 (4.8-10.8) X10*3/uL RBC 4.94 (4.20-5.50) X10*6/uL Hgb 11.0 L (12.0-16.0) g/dl Hct 35.7 L (37.0-47.0) % MCV 72.3 L (80.0-98.0) fL MCH 22.3 L (27.0-33.0) pg MCHC 30.8 L (31.0-35.0) g/dl RDW 15.0 (11.0-16.0) % Plt Count 315 (160-400) X10*3/uL MPV 11.1 (9.4-12.3) fL Immature Gran % (Auto) 0.3 (0.0-0.4) % Neut % (Auto) 58.6 (45-73) % Lymph % (Auto) 30.3 (20-40) % [place] % (Auto) 6.3 (2-11) % Eos % (Auto) 3.7 (0-4) % Baso % (Auto) 0.8 (0-2) % Lymph # (Auto) 2.8 (1.2-4.9) X10*3/uL [place] # (Auto) 0.6 (0.1-1.2) X10*3/uL Eos # (Auto) 0.3 (0.0-0.4) X10*3/uL Baso # (Auto) 0.1 (0.0-0.2) X10*3/uL Abs Immat Gran (auto) 0.03 (0.00-0.03) X10*3/uL Absolute Neuts (auto) 5.4 (2.0-8.3) x10*3/uL Absolute Nucleated RBC 0.000 (0.0-0.012) X10*3/uL Nucleated RBC % (auto) 0.0 (0.0-0.2) /100WBC Sodium 139 (135-145) mmol/L Potassium 3.7 D (3.3-5.1) mmol/L Chloride 103 (96-108) mmol/L Carbon Dioxide 24 (22-29) mmol/L Anion Gap 16 (12-20) BUN 9 (9-16) mg/dL Creatinine 0.74 (0.5-1.4) mg/dL Estim Creat Clear Calc 100.3 Estimated GFR > 60 Random Glucose 96 (60-115) mg/dL Calcium 9.5 D (8.4-10.2) mg/dL Total Bilirubin 0.3 (0.0-1.0) mg/dL Direct Bilirubin < 0.2 (0.0-0.5) mg/dL AST 14 (5-31) U/L ALT 12 (0-31) U/L Alkaline Phosphatase 64 (39-117) U/L Troponin I High Sens < 3.5 (<3.5-17.0) ng/L Total Protein 7.6 (6.5-8.0) g/dL Albumin 4.5 (3.5-5.0) g/dL Lipase 23 (8-78) U/L Beta HCG, Quant mIU/mL Urine Color Urine Appearance Urine pH (5.0-9.0) Ur Specific [place] (1.005-1.025) Urine Protein (Neg-Trace) mg/dL Urine Glucose (UA) (Negative) mg/dL Urine Ketones (Negative) mg/dL Urine Blood (Negative) Urine Nitrite (Negative) Ur Leukocyte Esterase (Negative) Urine RBC (0-2) /HPF Urine WBC (0-5) /HPF Ur Squamous Epith Cells (0-2) /HPF Urine Bacteria (None Seen) Hyaline Casts (0-2) /LPF 12/05/22 12/05/22 Range/Units 04:54 04:54 WBC (4.8-10.8) X10*3/uL RBC (4.20-5.50) X10*6/uL Hgb (12.0-16.0) g/dl Hct (37.0-47.0) % MCV (80.0-98.0) fL MCH (27.0-33.0) pg MCHC (31.0-35.0) g/dl RDW (11.0-16.0) % Plt Count (160-400) X10*3/uL MPV (9.4-12.3) fL Immature Gran % (Auto) (0.0-0.4) % Neut % (Auto) (45-73) % Lymph % (Auto) (20-40) % [place] % (Auto) (2-11) % Eos % (Auto) (0-4) % Baso % (Auto) (0-2) % Lymph # (Auto) (1.2-4.9) X10*3/uL [place] # (Auto) (0.1-1.2) X10*3/uL Eos # (Auto) (0.0-0.4) X10*3/uL Baso # (Auto) (0.0-0.2) X10*3/uL Abs Immat Gran (auto) (0.00-0.03) X10*3/uL Absolute Neuts (auto) (2.0-8.3) x10*3/uL Absolute Nucleated RBC (0.0-0.012) X10*3/uL Nucleated RBC % (auto) (0.0-0.2) /100WBC Sodium (135-145) mmol/L Potassium (3.3-5.1) mmol/L Chloride (96-108) mmol/L Carbon Dioxide (22-29) mmol/L Anion Gap (12-20) BUN (9-16) mg/dL Creatinine (0.5-1.4) mg/dL Estim Creat Clear Calc Estimated GFR Random Glucose (60-115) mg/dL Calcium (8.4-10.2) mg/dL Total Bilirubin (0.0-1.0) mg/dL Direct Bilirubin (0.0-0.5) mg/dL AST (5-31) U/L ALT (0-31) U/L Alkaline Phosphatase (39-117) U/L Troponin I High Sens (<3.5-17.0) ng/L Total Protein (6.5-8.0) g/dL Albumin (3.5-5.0) g/dL Lipase (8-78) U/L Beta HCG, Quant < 2 mIU/mL Urine Color Yellow Urine Appearance Clear Urine pH 8.0 (5.0-9.0) Ur Specific [place] <= 1.005 (1.005-1.025) Urine Protein Negative (Neg-Trace) mg/dL Urine Glucose (UA) Negative (Negative) mg/dL Urine Ketones Negative (Negative) mg/dL Urine Blood Negative (Negative) Urine Nitrite Negative (Negative) Ur Leukocyte Esterase Negative (Negative) Urine RBC 0-2 (0-2) /HPF Urine WBC 0-5 (0-5) /HPF Ur Squamous Epith Cells 3-5 (0-2) /HPF Urine Bacteria None Seen (None Seen) Hyaline Casts 0-2 (0-2) /LPF Independent Interpretation I performed an independent interpretation of an: EKG Interpretation: Sinus heart rate is 60 KS QRS QTC within normal limits is no acute ST segment elevation Radiology Impression Discussion of test interpretation with radiology: I have reviewed the radiologist's reading. Radiologist Impression: Chest x-ray negative Prescription Management PPI Chronic Conditions Patient?s care impacted by: Hypertension Discharge Plan Discharge Clinical Impression: Acid reflux, Chest pain Patient Disposition: Home, Self-Care Instructions: Chest Pain (DC) Prescriptions: New pantoprazole [Protonix] 40 mg tablet,delayed release (DR/EC) 40 mg PO DAILY Qty: 14 0RF No Action lorazepam [Ativan] 0.5 mg tablet 0.5 mg PO BEDTIME PRN (Reason: anxiety) Qty: 14 0RF metoclopramide HCl [Reglan] 10 mg tablet 10 mg PO Q6H PRN (Reason: nausea and vomiting) Qty: 14 0RF cyclobenzaprine 5 mg tablet 5 mg PO TID PRN (Reason: muscle spasm) Qty: 10 0RF ibuprofen 600 mg tablet 600 mg PO Q6H PRN (Reason: pain) Qty: 30 0RF azithromycin [Zithromax Z-Trevor] 250 mg tablet 250 mg PO DAILY 5 Days Qty: 5 0RF erythromycin 5 mg/gram (0.5 %) ointment 0.5 inch ophthalmic (eye) TID Qty: 3.5 0RF clindamycin HCl 300 mg capsule 300 mg PO TID 10 Days Qty: 30 0RF ibuprofen 800 mg tablet 800 mg PO Q8H PRN (Reason: pain) Qty: 14 0RF oxycodone-acetaminophen [Percocet] 5-325 mg tablet 1 tab PO Q6H PRN (Reason: pain) Qty: 10 0RF ondansetron 4 mg tablet,disintegrating 4 mg PO Q6-8H PRN (Reason: nausea and vomiting) Qty: 7 0RF ciprofloxacin HCl 500 mg tablet 500 mg PO Q12H 5 Days Qty: 10 0RF cefpodoxime 100 mg tablet 100 mg PO BID Qty: 20 0RF Rx Instructions: must administer with a meal/food ondansetron 4 mg tablet,disintegrating 4 mg PO Q8H PRN (Reason: nausea and vomiting) Qty: 10 0RF clindamycin HCl 150 mg capsule 150 mg PO TID Qty: 20 0RF ibuprofen 400 mg tablet 400 mg PO Q8H PRN (Reason: pain) Qty: 30 0RF lorazepam [Ativan] 0.5 mg tablet 0.5 mg PO BID PRN (Reason: anxiety) Qty: 10 0RF ondansetron 4 mg tablet,disintegrating 4 mg PO Q6H PRN (Reason: nausea and vomiting) Qty: 7 0RF lorazepam [Ativan] 0.5 mg tablet 0.5 mg PO BID PRN (Reason: anxiety) Qty: 10 0RF lorazepam [Ativan] 1 mg tablet 1 mg PO BID PRN (Reason: anxiety/sleep) Qty: 14 0RF ibuprofen 600 mg tablet 600 mg PO Q8H PRN (Reason: pain) Qty: 30 0RF tramadol 50 mg tablet 50 mg PO Q8H PRN (Reason: pain) Qty: 8 0RF clindamycin HCl 300 mg capsule 300 mg PO Q8H 7 Days Qty: 21 0RF ciprofloxacin-dexamethasone [Ciprodex] 0.3-0.1 % drops,suspension 4 drp otic (ears) BID 7 Days Qty: 7.5 0RF ciprofloxacin HCl [Cipro] 500 mg tablet 500 mg PO BID Qty: 14 0RF famotidine [Pepcid] 20 mg tablet 20 mg PO BID 10 Days Qty: 20 0RF Referrals: [facility] [Provider Group] (Small meals no fatty food) Print Language: Uzbek
[2022-12-05] MEDS: Magnesium Hydrox/Alum Hydrox 30 ML ORAL.SUSP PO (04:53)
[2022-12-05] MEDS: Lidocaine HCl Viscous 2 % 15 ML SOLUTION MUCOUS MEM (04:53)
[2022-12-05] MEDS: PHENobarb/Hyoscy/Atropine/Scop 10 ML ELIXIR PO (04:54)
[2022-12-05 04:58] VITALS: BP 127/60; PULSE 78; RESP 14; O2SAT 99
[2022-12-05 05:00] LABS: MANUAL DIFF FLAG NO
[2022-12-05 05:01] LABS: Appearance Urine Clear; Color Urine Yellow; Glucose Urine UA Negative (Negative); Leukocyte Esterase Urine Negative (Negative); Nitrite Urine Negative (Negative); Specific Gravity - Urine <= 1.005 (1.005-1.025); Urine Blood Negative (Negative); Urine Ketones Negative (Negative); Urine Protein Negative (Neg-Trace)
[2022-12-05 05:02] LABS: Basophils Absolute Auto 0.1 X10*3/uL (0.0-0.2); Basophils Percent Auto 0.8 % (0-2); Eosinophils Absolute Auto 0.3 X10*3/uL (0.0-0.4); Eosinophils Percent Auto 3.7 % (0-4); Hematocrit 35.7 % (37.0-47.0); Imm Gran Abs Auto 0.03 X10*3/uL (0.00-0.03); Imm Gran Pct Auto 0.3 % (0.0-0.4); Lymphocytes Absolute Auto 2.8 X10*3/uL (1.2-4.9); Lymphocytes Percent Auto 30.3 % (20-40); Mean Corpuscular HGB Conc 30.8 g/dl (31.0-35.0); Mean Corpuscular Hemoglobin 22.3 pg (27.0-33.0); Mean Corpuscular Volume 72.3 fL (80.0-98.0); Mean Platelet Volume 11.1 fL (9.4-12.3); Monocytes Absolute Auto 0.6 X10*3/uL (0.1-1.2); Monocytes Percent Auto 6.3 % (2-11); Neutrophils Absolute Auto 5.4 x10*3/uL (2.0-8.3); Neutrophils Percent Auto 58.6 % (45-73); Platelet Count 315 X10*3/uL (160-400); Red Blood Count 4.94 X10*6/uL (4.20-5.50); White Blood Count 9.1 X10*3/uL (4.8-10.8)
[2022-12-05 05:03] LABS: Bacteria Urine None Seen (None Seen); Hyaline Casts Urine 0-2 /LPF (0-2); RBC Urine 0-2 /HPF (0-2); WBC Urine 0-5 /HPF (0-5)
[2022-12-05 05:15] LABS: Alanine Aminotransferase 12 U/L (0-31); Albumin Level 4.5 g/dL (3.5-5.0); Alkaline Phosphatase 64 U/L (39-117); Anion Gap 16 (12-20); Aspartate Amino Transferase 14 U/L (5-31); Bilirubin Direct < 0.2 mg/dL (0.0-0.5); Bilirubin Total 0.3 mg/dL (0.0-1.0); Blood Urea Nitrogen 9 mg/dL (9-16); Calcium 9.5 mg/dL (8.4-10.2); Carbon Dioxide 24 mmol/L (22-29); Chloride 103 mmol/L (96-108); Creatinine Clr Calc Pharmacy 100.3; Estimated Glomerular Filt Rate > 60; Glucose Random 96 mg/dL (60-115); Lipase 23 U/L (8-78); Potassium 3.7 mmol/L (3.3-5.1); Sodium 139 mmol/L (135-145); Total Protein 7.6 g/dL (6.5-8.0)
[2022-12-05 05:27] LABS: HCG Quantitative < 2 mIU/mL; Troponin-I High Sensitivity < 3.5 ng/L (<3.5-17.0)
[2022-12-05 05:53] VITALS: BP 159/80; PULSE 81; RESP 18
[2022-12-05 06:16] VITALS: O2SAT 99
--- NOTE | 2022-12-05 06:17 | PC.NURSE ---
Pt A&Ox4, reports 10/10 constant epigastric pain with headache since 10pm last night. States pain feels like pressure in upper chest. Denies CP, SOB or palpitations. Pt placed on bedside monitor and EKG obtained and reviewed by Dr. Leone. Meds given as documented and pt reports effectiveness to meds given.
== END 2022-12-05 06:22 | disposition home or self-care (01) ==
PROVIDERS: Emergency Provider Emergency Medicine Emergency Medical Services
DX: K21.9 Gastro-esophageal reflux disease without esophagitis (principal); R07.89 Other chest pain; Z79.899 Other long term (current) drug therapy
CPT/HCPCS: 36415; 71045; 80048; 80076; 81001; 83690; 84484; 84702; 85025; 93005; 99283; 99285

== ENCOUNTER 2022-12-19 14:58 | Emergency (ER) | payer OTHER, SELFPAY ==
[2022-12-19 15:01] VITALS: BP 148/87; PULSE 100; RESP 14; TEMP 37; O2SAT 100; BMI 29.2
--- NOTE | 2022-12-19 15:07 | ED.GENADULT ---
HPI - General Adult General Chief complaint: Dental/Oral Stated complaint: headache,vomiting Time Seen by Provider: 12/19/22 15:21 Source: patient Mode of arrival: ambulatory Limitations: no limitations History of Present Illness HPI narrative: 27 yold female presents to the ED for left upper molar pain and headache. patient denies any facial swelling, drooling, change in voice, shortness of breath, neck swelling, chest pain, or shortness of breath. Related Data Previous Rx's Medication Instructions Recorded azithromycin 250 mg tablet 250 mg PO DAILY 5 days #5 tabs 06/14/20 (Zithromax Z-Trevor) clindamycin HCl 300 mg capsule 300 mg PO TID Periorbital 08/15/20 cellulitis 10 days #30 caps erythromycin 5 mg/gram (0.5 %) eye 0.5 inch ophthalmic (eye) TID #3.5 08/15/20 ointment grams ibuprofen 800 mg tablet 800 mg PO Q8H PRN pain #14 tabs 08/15/20 oxycodone-acetaminophen 5 mg-325 1 tab PO Q6H PRN pain #10 tabs 08/15/20 mg tablet (Percocet) lorazepam 0.5 mg tablet (Ativan) 0.5 mg PO BEDTIME PRN anxiety #14 10/31/20 tabs metoclopramide HCl 10 mg tablet 10 mg PO Q6H PRN nausea and 02/22/21 (Reglan) vomiting #14 tabs cyclobenzaprine 5 mg tablet 5 mg PO TID PRN muscle spasm #10 05/10/21 tabs ibuprofen 600 mg tablet 600 mg PO Q6H PRN pain #30 tabs 05/10/21 lorazepam 1 mg tablet (Ativan) 1 mg PO BID PRN anxiety/sleep #14 07/02/21 tabs ondansetron 4 mg disintegrating 4 mg PO Q6-8H PRN nausea and 07/16/21 tablet vomiting #7 tabs ciprofloxacin HCl 500 mg tablet 500 mg PO Q12H 5 days #10 tabs 10/05/21 cefpodoxime 100 mg tablet 100 mg PO BID #20 tabs 10/08/21 clindamycin HCl 300 mg capsule 300 mg PO Q8H 7 days #21 caps 10/22/21 ibuprofen 600 mg tablet 600 mg PO Q8H PRN pain #30 tabs 10/22/21 tramadol 50 mg tablet 50 mg PO Q8H PRN pain #8 tabs 10/22/21 ondansetron 4 mg disintegrating 4 mg PO Q8H PRN nausea and 01/26/22 tablet vomiting #10 tabs ciprofloxacin 0.3 %-dexamethasone 4 drp otic (ears) BID 7 days #7.5 05/06/22 0.1 % ear drops,suspension mL (Ciprodex) ciprofloxacin HCl 500 mg tablet 500 mg PO BID #14 tabs 05/06/22 (Cipro) clindamycin HCl 150 mg capsule 150 mg PO TID #20 caps 06/13/22 ibuprofen 400 mg tablet 400 mg PO Q8H PRN pain #30 tabs 06/13/22 famotidine 20 mg tablet (Pepcid) 20 mg PO BID 10 days #20 tabs 07/31/22 lorazepam 0.5 mg tablet (Ativan) 0.5 mg PO BID PRN anxiety #10 tabs 09/21/22 lorazepam 0.5 mg tablet (Ativan) 0.5 mg PO BID PRN anxiety #10 tabs 09/21/22 ondansetron 4 mg disintegrating 4 mg PO Q6H PRN nausea and 09/21/22 tablet vomiting #7 tabs pantoprazole 40 mg tablet,delayed 40 mg PO DAILY #14 tabs 12/05/22 release (Protonix) clindamycin HCl 300 mg capsule 300 mg PO QID 10 days #40 caps 12/19/22 naproxen 500 mg tablet 500 mg PO BID PRN pain 7 days #14 12/19/22 tabs Allergies Allergy/AdvReac Type Severity Reaction Status Date / Time amoxicillin [AMOXICILLIN] Allergy Unknown UNKNOWN Verified 12/05/22 05:02 clavulanic acid Allergy Unknown Unknown Verified 12/05/22 05:02 [From Augmentin] cyclobenzaprine Allergy Palpitation Verified 12/05/22 05:02 [From Flexeril] s escitalopram Allergy Palpitation Verified 12/05/22 05:02 s Review of Systems Review of Systems: Toothache Yes all other systems are reviewed and are negative [facility] Past Medical History Medical History Anemia Anxiety HTN (hypertension) Surgical History H/O: Social History Social History Alcohol intake: never Patient Tobacco Use Status: Never used Tobacco Advance Directives: No Advance Directives Information Provided: No Physical Exam ED Vital Signs: Vital Signs - 24 hr 12/19/22 15:01 Temperature 98.6 F Pulse Rate 100 Respiratory Rate 14 Blood Pressure 148/87 H Pulse Oximetry 100 Oxygen Delivery Method Room Air BMI result Body Mass Index 29.2 Const General: cooperative, healthy appearing, comfortable, no acute distress, well developed, alert, awake and Physically active Orientation/consciousness: oriented to person, oriented to place, oriented to time and patient oriented x3 HENMT Other: negative for any facial swelling or neck swelling Head: Yes normal to inspection, Yes No palpable skull fracture present, Yes normocephalic, Yes atraumatic and No abrasion Ears: hearing grossly normal bilaterally, external ears normal, TM's normal bilaterally, mastoids normal and no periauricular adenopathy Teeth image: 1. tenderness on palpation. yellow collection in tooth. negative for gum swelling, pus discharge, redness, Throat: Yes posterior oropharynx normal, Yes tonsils normal and Yes uvula midline Eyes General: appearance normal, both eyes and all related structures Neck Neck: Yes normal visual inspection, Yes full ROM, Yes no lymphadenopathy, Yes no meningeal signs, Yes trachea midline, Yes supple, No anterior neck swelling and No tender Chest Chest palpation & inspection: normal inspection of the chest and normal palpation of entire chest wall Resp Effort & Inspection: normal respiratory effort and able to speak in complete sentences Auscultation: clear to auscultation bilaterally, no crackles, no rales, no rhonchi and no wheezes Cardio Jugular venous distension: no JVD Heart sounds: S1 normal heart sound present and S2 normal heart sound present GI Inspection: Yes normal to inspection Palpation (GI): Soft to palpation, not firm, nontender, no guarding and not rigid General: No CVA tenderness and Yes no CVA tenderness Back/Spine/Pelvis Back: no CVA tenderness, No CVA tenderness and No back tenderness Skin General skin exam: no rashes or lesions noted, elasticity normal and turgor normal Neuro General: oriented to person, oriented to place, oriented to time, patient oriented x3, gait normal, tone normal, moves all extremities, Normal light touch and pain sensation, no meningeal signs, no focal motor deficits and CN's II-XI intact bilaterally Extrem General: Yes normal to inspection and Yes full ROM Psych Appearance: grossly normal, well kempt and not disheveled Course Course Course Narrative: RME: 27 yold female presents to the ED for left upper molar pain. Physical exam shows molar with yellow collection. negative for any facial swelling, neck swelling, submandibular swelling, droolling, gum swelling, change in voice, drooling, chest pain, or shortness of breath. Will Discharge with antibiotics. Reevaluation(s) Reevaluation #1: Patient discharged with antibiotics. given lists of dentist to called. Medical Decision Making Medical Decision Making MDM Narrative: 27 yold female presents to the ED for toothache. negative for any swelling of face/neck. negative for drooling. negative for signs of retropharyngeal abscess, karen angina, or gum abscess. Discharge with antibiotics. Differential Diagnosis Differential Diagnoses: The differential diagnosis associated with the presentation includes (retropharygneal abscess, karen angina, gum abscess) Admission/Observation Consideration of admission/observation: Escalation of care including admission/observation considered Prescription Management I considered prescription management with: Pain Medication and Antibiotic Discharge Plan Discharge Clinical Impression: Toothache Patient Disposition: Home, Self-Care Instructions: Toothache (ED) Additional Instructions: Regrese al servicio de urgencias de inmediato si tiene hinchaz?n facial, fiebre, babeo, hinchaz?n del iain, dolor en el pecho, cambio de voz, empeoramiento del dolor o cualquier otro s?ntoma preocupante. Por favor, flavia un seguimiento con kern dentista y kern PCP. Prescriptions: New clindamycin HCl 300 mg capsule 300 mg PO QID 10 Days Qty: 40 0RF naproxen 500 mg tablet 500 mg PO BID PRN (Reason: pain) 7 Days Qty: 14 0RF No Action lorazepam [Ativan] 0.5 mg tablet 0.5 mg PO BEDTIME PRN (Reason: anxiety) Qty: 14 0RF metoclopramide HCl [Reglan] 10 mg tablet 10 mg PO Q6H PRN (Reason: nausea and vomiting) Qty: 14 0RF cyclobenzaprine 5 mg tablet 5 mg PO TID PRN (Reason: muscle spasm) Qty: 10 0RF ibuprofen 600 mg tablet 600 mg PO Q6H PRN (Reason: pain) Qty: 30 0RF azithromycin [Zithromax Z-Trevor] 250 mg tablet 250 mg PO DAILY 5 Days Qty: 5 0RF erythromycin 5 mg/gram (0.5 %) ointment 0.5 inch ophthalmic (eye) TID Qty: 3.5 0RF clindamycin HCl 300 mg capsule 300 mg PO TID 10 Days Qty: 30 0RF ibuprofen 800 mg tablet 800 mg PO Q8H PRN (Reason: pain) Qty: 14 0RF oxycodone-acetaminophen [Percocet] 5-325 mg tablet 1 tab PO Q6H PRN (Reason: pain) Qty: 10 0RF ondansetron 4 mg tablet,disintegrating 4 mg PO Q6-8H PRN (Reason: nausea and vomiting) Qty: 7 0RF ciprofloxacin HCl 500 mg tablet 500 mg PO Q12H 5 Days Qty: 10 0RF cefpodoxime 100 mg tablet 100 mg PO BID Qty: 20 0RF Rx Instructions: must administer with a meal/food ondansetron 4 mg tablet,disintegrating 4 mg PO Q8H PRN (Reason: nausea and vomiting) Qty: 10 0RF clindamycin HCl 150 mg capsule 150 mg PO TID Qty: 20 0RF ibuprofen 400 mg tablet 400 mg PO Q8H PRN (Reason: pain) Qty: 30 0RF lorazepam [Ativan] 0.5 mg tablet 0.5 mg PO BID PRN (Reason: anxiety) Qty: 10 0RF ondansetron 4 mg tablet,disintegrating 4 mg PO Q6H PRN (Reason: nausea and vomiting) Qty: 7 0RF lorazepam [Ativan] 0.5 mg tablet 0.5 mg PO BID PRN (Reason: anxiety) Qty: 10 0RF lorazepam [Ativan] 1 mg tablet 1 mg PO BID PRN (Reason: anxiety/sleep) Qty: 14 0RF ibuprofen 600 mg tablet 600 mg PO Q8H PRN (Reason: pain) Qty: 30 0RF tramadol 50 mg tablet 50 mg PO Q8H PRN (Reason: pain) Qty: 8 0RF clindamycin HCl 300 mg capsule 300 mg PO Q8H 7 Days Qty: 21 0RF ciprofloxacin-dexamethasone [Ciprodex] 0.3-0.1 % drops,suspension 4 drp otic (ears) BID 7 Days Qty: 7.5 0RF ciprofloxacin HCl [Cipro] 500 mg tablet 500 mg PO BID Qty: 14 0RF famotidine [Pepcid] 20 mg tablet 20 mg PO BID 10 Days Qty: 20 0RF pantoprazole [Protonix] 40 mg tablet,delayed release (DR/EC) 40 mg PO DAILY Qty: 14 0RF Stand Alone Forms: Work/School Release Interventions: ED Discharge Assessment Last Done: 12/19/22 15:18 Discharge Date/Time: 12/19/22 15:21 Print Language: Georgian
--- NOTE | 2022-12-19 15:17 | PC.NURSE ---
eval and dc by pa in [facility]
== END 2022-12-19 15:21 | disposition home or self-care (01) ==
PROVIDERS: Emergency Provider Emergency Medicine
DX: K08.89 Other specified disorders of teeth and supporting structures (principal); R51.9 Headache, unspecified; Z79.899 Other long term (current) drug therapy
CPT/HCPCS: 99282; 99283

== ENCOUNTER 2022-12-28 19:49 | Emergency (ER) | payer OTHER, SELFPAY ==
[2022-12-28 20:40] VITALS: BP 165/95; PULSE 77; RESP 16; TEMP 37.1; O2SAT 99; BMI 29.9
--- NOTE | 2022-12-28 20:40 | ED_ITS ---
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 No difficulty swelling, difficulty breathing. Patient reports she was given oxycodone today from her dentist after having her procedure but she cannot take this due to an allergy. She is alternating both t ylenol/Motrin at home with continued pain Related Data Previous Rx's Medication Instructions Recorded azithromycin 250 mg tablet 250 mg PO DAILY 5 days #5 tabs 06/14/20 (Zithromax Z-Trevor) clindamycin HCl 300 mg capsule 300 mg PO TID Periorbital 08/15/20 cellulitis 10 days #30 caps erythromycin 5 mg/gram (0.5 %) eye 0.5 inch ophthalmic (eye) TID #3.5 08/15/20 ointment grams ibuprofen 800 mg tablet 800 mg PO Q8H PRN pain #14 tabs 08/15/20 oxycodone-acetaminophen 5 mg-325 1 tab PO Q6H PRN pain #10 tabs 08/15/20 mg tablet (Percocet) lorazepam 0.5 mg tablet (Ativan) 0.5 mg PO BEDTIME PRN anxiety #14 10/31/20 tabs metoclopramide HCl 10 mg tablet 10 mg PO Q6H PRN nausea and 02/22/21 (Reglan) vomiting #14 tabs cyclobenzaprine 5 mg tablet 5 mg PO TID PRN muscle spasm #10 05/10/21 tabs ibuprofen 600 mg tablet 600 mg PO Q6H PRN pain #30 tabs 05/10/21 lorazepam 1 mg tablet (Ativan) 1 mg PO BID PRN anxiety/sleep #14 07/02/21 tabs ondansetron 4 mg disintegrating 4 mg PO Q6-8H PRN nausea and 07/16/21 tablet vomiting #7 tabs ciprofloxacin HCl 500 mg tablet 500 mg PO Q12H 5 days #10 tabs 10/05/21 cefpodoxime 100 mg tablet 100 mg PO BID #20 tabs 10/08/21 clindamycin HCl 300 mg capsule 300 mg PO Q8H 7 days #21 caps 10/22/21 ibuprofen 600 mg tablet 600 mg PO Q8H PRN pain #30 tabs 10/22/21 tramadol 50 mg tablet 50 mg PO Q8H PRN pain #8 tabs 10/22/21 ondansetron 4 mg disintegrating 4 mg PO Q8H PRN nausea and 01/26/22 tablet vomiting #10 tabs ciprofloxacin 0.3 %-dexamethasone 4 drp otic (ears) BID 7 days #7.5 05/06/22 0.1 % ear drops,suspension mL (Ciprodex) ciprofloxacin HCl 500 mg tablet 500 mg PO BID #14 tabs 05/06/22 (Cipro) clindamycin HCl 150 mg capsule 150 mg PO TID #20 caps 06/13/22 ibuprofen 400 mg tablet 400 mg PO Q8H PRN pain #30 tabs 06/13/22 famotidine 20 mg tablet (Pepcid) 20 mg PO BID 10 days #20 tabs 07/31/22 lorazepam 0.5 mg tablet (Ativan) 0.5 mg PO BID PRN anxiety #10 tabs 09/21/22 lorazepam 0.5 mg tablet (Ativan) 0.5 mg PO BID PRN anxiety #10 tabs 09/21/22 ondansetron 4 mg disintegrating 4 mg PO Q6H PRN nausea and 09/21/22 tablet vomiting #7 tabs pantoprazole 40 mg tablet,delayed 40 mg PO DAILY #14 tabs 12/05/22 release (Protonix) clindamycin HCl 300 mg capsule 300 mg PO QID 10 days #40 caps 12/19/22 naproxen 500 mg tablet 500 mg PO BID PRN pain 7 days #14 12/19/22 tabs tramadol 50 mg tablet 50 mg PO Q8H PRN pain #8 tabs 12/28/22 Allergies Allergy/AdvReac Type Severity Reaction Status Date / Time amoxicillin [AMOXICILLIN] Allergy Unknown UNKNOWN Verified 12/05/22 05:02 clavulanic acid Allergy Unknown Unknown Verified 12/05/22 05:02 [From Augmentin] cyclobenzaprine Allergy Palpitation Verified 12/05/22 05:02 [From Flexeril] s escitalopram Allergy Palpitation Verified 12/05/22 05:02 s Review of Systems Review of Systems: Yes all other systems are reviewed and are negative Constitutional: Constitutional: Reports no additional constitutional complaints, Denies body ache(s), Denies chills, Denies fever(s), Denies headache(s) and Denies weakness Eyes: Eyes: Reports no additional eye complaints and Denies change in vision ENT: Reports system reviewed and no additional complaints, except as documented, Reports dental pain, Denies dizziness, Denies headache(s), Denies nasal congestion, Denies nasal discharge and Denies neck pain Cardiovascular: Cardiovascular: Reports no additional cardiovascular complaints, Denies chest pain, Denies leg edema and Denies dyspnea Respiratory: Respiratory: Reports no additional respiratory complaints, Denies cough and Denies dyspnea Gastrointestinal: Gastrointestinal: Reports no additional gastrointestinal complaints, Denies abdominal pain, Denies diarrhea, Denies nausea and Denies vomiting Genitourinary: Genitourinary: Reports no additional female genitourinary complaints and Denies urinary incontinence Musculoskeletal: Musculoskeletal: Reports no additional musculoskeletal complaints, Denies back pain, Denies arthralgias, Denies joint swelling, Denies neck pain, Denies numbness and Denies tingling Integumentary/Breasts: Skin/Breast: Reports system reviewed and no additional complaints, except as docu and Denies rash Neurologic: Reports system reviewed and no additional complaints, except as documented, Denies Abnormal speech present, Denies dizziness, Denies headache(s), Denies numbness, Denies tingling and Denies weakness PMF Past Medical History Attestation statement: The following information was validated with the patient. Source: old records reviewed and nursing notes reviewed Medical History Anemia Anxiety HTN (hypertension) Surgical History H/O: Social History Social History Alcohol intake: never Patient Tobacco Use Status: Never used Tobacco Physical Exam Vital Signs: Vital Signs: Last Vital Signs Temp 98.7 F 12/28/22 20:40 Pulse 77 12/28/22 20:40 Resp 16 12/28/22 20:40 BP 165/95 H 12/28/22 20:40 Pulse Ox 99 12/28/22 20:40 O2 Del Method Room Air 12/28/22 20:40 BMI result Body Mass Index 29.9 Const: General: cooperative, healthy appearing, comfortable and no acute distress Orientation/consciousness: patient oriented x3 Limitations: no limitations HEENT: Head: Yes normal to inspection Ears: hearing grossly normal bilaterally General nose exam: Normal external nose present Face and si nus: Yes normal facial exam Mouth: Normal oral and palatal mucosa present Teeth image: 1. Absent molars. There is scant bleeding noted. No abscess seen. No trismus on exam Throat: Yes posterior oropharynx normal Eyes: General: appearance normal, both eyes and all related structures Pupils: Equal, round and reactive pupils present Neck: Neck: Yes normal visual inspection, Yes full ROM and Yes no lymphadenopathy Chest: Chest palpation & inspection: normal inspection of the chest Resp: Effort & Inspection: normal respiratory effort Auscultation: clear to auscultation bilaterally Cardio: Rate: regular rate Rhythm: regular rhythm Peripheral pulses: Peripheral pulses 2+ throughout GI: Inspection: Yes normal to inspection Palpation (GI): Soft to palpation and nontender Auscultation: normal bowel sounds Back/Spine/Pelvis: Thoracic/Lumbar Spine: thoracic and lumbar spine normal to inspection Skin: General skin exam: no rashes or lesions noted Neuro: General: patient oriented x3, no focal motor deficits and normal sensation to monofilament Cranial nerves: Yes Equal, round and reactive pupils present Cognition (Neuro): normal cognition Speech: No Abnormal speech present Gait exam (Neuro): Normal gait present Motor exam (neuro): 5/5 motor strength present throughout Extrem: General: Yes normal to inspection Medical Decision Making Medical Decision Making MDM Narrative: 27-year-old female here with complaints of left upper dental pain after having a dental procedure today. Patient feels that she is having some drainage and bleeding from the site. She is on clindamycin. On exam there is no abscess. There is scant bleeding noted from the site. No trismus on exam. No evidence of Abel's angina. Patient is tolerating her secretions with no difficulty. She is afebrile here.. Nontoxic appearing. Patient will be given tramadol for pain. Recommend she continue her antibiotics and continue to alternate Motrin and Tylenol. Differential Diagnosis Differential Diagnoses: The differential diagnosis associated with the presentation includes dental pain see above Discharge Plan Discharge Clinical Impression: Toothache Patient Disposition: Home, Self-Care Instructions: Toothache (ED) Additional Instructions: Hacer g?rgaras con agua salada. Alimentos blandos. Contin?e con los antibi?ticos. Seguimiento con dentista. Salt water gargles. Soft foods. Continue antibiotics. Follow-up with dentist. Prescriptions: New tramadol 50 mg tablet 50 mg PO Q8H PRN (Reason: pain) Qty: 8 0RF No Action lorazepam [Ativan] 0.5 mg tablet 0.5 mg PO BEDTIME PRN (Reason: anxiety) Qty: 14 0RF metoclopramide HCl [Reglan] 10 mg tablet 10 mg PO Q6H PRN (Reason: nausea and vomiting) Qty: 14 0RF cyclobenzaprine 5 mg tablet 5 mg PO TID PRN (Reason: muscle spasm) Qty: 10 0RF ibuprofen 600 mg tablet 600 mg PO Q6H PRN (Reason: pain) Qty: 30 0RF azithromycin [Zithromax Z-Trevor] 250 mg tablet 250 mg PO DAILY 5 Days Qty: 5 0RF erythromycin 5 mg/gram (0.5 %) ointment 0.5 inch ophthalmic (eye) TID Qty: 3.5 0RF clindamycin HCl 300 mg capsule 300 mg PO TID 10 Days Qty: 30 0RF ibuprofen 800 mg tablet 800 mg PO Q8H PRN (Reason: pain) Qty: 14 0RF oxycodone-acetaminophen [Percocet] 5-325 mg tablet 1 tab PO Q6H PRN (Reason: pain) Qty: 10 0RF ondansetron 4 mg tablet,disintegrating 4 mg PO Q6-8H PRN (Reason: nausea and vomiting) Qty: 7 0RF ciprofloxacin HCl 500 mg tablet 500 mg PO Q12H 5 Days Qty: 10 0RF cefpodoxime 100 mg tablet 100 mg PO BID Qty: 20 0RF Rx Instructions: must administer with a meal/food ondansetron 4 mg tablet,disintegrating 4 mg PO Q8H PRN (Reason: nausea and vomiting) Qty: 10 0RF clindamycin HCl 150 mg capsule 150 mg PO TID Qty: 20 0RF ibuprofen 400 mg tablet 400 mg PO Q8H PRN (Reason: pain) Qty: 30 0RF lorazepam [Ativan] 0.5 mg tablet 0.5 mg PO BID PRN (Reason: anxiety) Qty: 10 0RF ondansetron 4 mg tablet,disintegrating 4 mg PO Q6H PRN (Reason: nausea and vomiting) Qty: 7 0RF lorazepam [Ativan] 0.5 mg tablet 0.5 mg PO BID PRN (Reason: anxiety) Qty: 10 0RF lorazepam [Ativan] 1 mg tablet 1 mg PO BID PRN (Reason: anxiety/sleep) Qty: 14 0RF ibuprofen 600 mg tablet 600 mg PO Q8H PRN (Reason: pain) Qty: 30 0RF tramadol 50 mg tablet 50 mg PO Q8H PRN (Reason: pain) Qty: 8 0RF clindamycin HCl 300 mg capsule 300 mg PO Q8H 7 Days Qty: 21 0RF ciprofloxacin-dexamethasone [Ciprodex] 0.3-0.1 % drops,suspension 4 drp otic (ears) BID 7 Days Qty: 7.5 0RF ciprofloxacin HCl [Cipro] 500 mg tablet 500 mg PO BID Qty: 14 0RF famotidine [Pepcid] 20 mg tablet 20 mg PO BID 10 Days Qty: 20 0RF clindamycin HCl 300 mg capsule 300 mg PO QID 10 Days Qty: 40 0RF naproxen 500 mg tablet 500 mg PO BID PRN (Reason: pain) 7 Days Qty: 14 0RF pantoprazole [Protonix] 40 mg tablet,delayed release (DR/EC) 40 mg PO DAILY Qty: 14 0RF Referrals: Physician,Unknown J [Primary Care Provider] - Print Language: Tamazight
== END 2022-12-28 21:00 | disposition home or self-care (01) ==
PROVIDERS: Emergency Provider Internal Medicine
DX: K08.89 Other specified disorders of teeth and supporting structures (principal)
CPT/HCPCS: 99282; 99283

== ENCOUNTER 2022-12-30 18:16 | Emergency (ER) | payer OTHER, SELFPAY ==
[2022-12-30 18:21] VITALS: BP 159/94; PULSE 75; RESP 18; TEMP 37.1; O2SAT 98; BMI 29.9
--- NOTE | 2022-12-30 18:26 | ED.GENADULT ---
HPI - General Adult General Chief complaint: Dental/Oral Stated complaint: pus on left side where molar was extracted Time Seen by Provider: 12/30/22 18:26 Source: patient, RN notes reviewed, old records reviewed and manager trade Mode of arrival: ambulatory Limitations: language barrier History of Present Illness HPI narrative: 27-year-old female presents for evaluation of pus and pain from a tooth extraction. Patient had a left upper molar and left lower molar extracted a few days ago. She has been on clindamycin for the last month ?due to infections before they pulled my teeth. ? She reports that she is still on clindamycin She was prescribed a mouthwash to use but states that it has been burning whenever she uses it. Reports swelling to the area She also reports subjective fevers and chills Related Data Previous Rx's Medication Instructions Recorded azithromycin 250 mg tablet 250 mg PO DAILY 5 days #5 tabs 06/14/20 (Zithromax Z-Trevor) clindamycin HCl 300 mg capsule 300 mg PO TID Periorbital 08/15/20 cellulitis 10 days #30 caps erythromycin 5 mg/gram (0.5 %) eye 0.5 inch ophthalmic (eye) TID #3.5 08/15/20 ointment grams ibuprofen 800 mg tablet 800 mg PO Q8H PRN pain #14 tabs 08/15/20 oxycodone-acetaminophen 5 mg-325 1 tab PO Q6H PRN pain #10 tabs 08/15/20 mg tablet (Percocet) lorazepam 0.5 mg tablet (Ativan) 0.5 mg PO BEDTIME PRN anxiety #14 10/31/20 tabs metoclopramide HCl 10 mg tablet 10 mg PO Q6H PRN nausea and 02/22/21 (Reglan) vomiting #14 tabs cyclobenzaprine 5 mg tablet 5 mg PO TID PRN muscle spasm #10 05/10/21 tabs ibuprofen 600 mg tablet 600 mg PO Q6H PRN pain #30 tabs 05/10/21 lorazepam 1 mg tablet (Ativan) 1 mg PO BID PRN anxiety/sleep #14 07/02/21 tabs ondansetron 4 mg disintegrating 4 mg PO Q6-8H PRN nausea and 07/16/21 tablet vomiting #7 tabs ciprofloxacin HCl 500 mg tablet 500 mg PO Q12H 5 days #10 tabs 10/05/21 cefpodoxime 100 mg tablet 100 mg PO BID #20 tabs 10/08/21 clindamycin HCl 300 mg capsule 300 mg PO Q8H 7 days #21 caps 10/22/21 ibuprofen 600 mg tablet 600 mg PO Q8H PRN pain #30 tabs 10/22/21 tramadol 50 mg tablet 50 mg PO Q8H PRN pain #8 tabs 10/22/21 ondansetron 4 mg disintegrating 4 mg PO Q8H PRN nausea and 01/26/22 tablet vomiting #10 tabs ciprofloxacin 0.3 %-dexamethasone 4 drp otic (ears) BID 7 days #7.5 05/06/22 0.1 % ear drops,suspension mL (Ciprodex) ciprofloxacin HCl 500 mg tablet 500 mg PO BID #14 tabs 05/06/22 (Cipro) clindamycin HCl 150 mg capsule 150 mg PO TID #20 caps 06/13/22 ibuprofen 400 mg tablet 400 mg PO Q8H PRN pain #30 tabs 06/13/22 famotidine 20 mg tablet (Pepcid) 20 mg PO BID 10 days #20 tabs 07/31/22 lorazepam 0.5 mg tablet (Ativan) 0.5 mg PO BID PRN anxiety #10 tabs 09/21/22 lorazepam 0.5 mg tablet (Ativan) 0.5 mg PO BID PRN anxiety #10 tabs 09/21/22 ondansetron 4 mg disintegrating 4 mg PO Q6H PRN nausea and 09/21/22 tablet vomiting #7 tabs pantoprazole 40 mg tablet,delayed 40 mg PO DAILY #14 tabs 12/05/22 release (Protonix) clindamycin HCl 300 mg capsule 300 mg PO QID 10 days #40 caps 12/19/22 naproxen 500 mg tablet 500 mg PO BID PRN pain 7 days #14 12/19/22 tabs tramadol 50 mg tablet 50 mg PO Q8H PRN pain #8 tabs 12/28/22 azithromycin 250 mg tablet See Rx Instructions PO .COMPLEX #6 12/30/22 tabs chlorhexidine gluconate 0.12 % 15 ml buccal BID 7 days #300 mL 12/30/22 mouthwash Allergies Allergy/AdvReac Type Severity Reaction Status Date / Time amoxicillin [AMOXICILLIN] Allergy Unknown UNKNOWN Verified 12/05/22 05:02 clavulanic acid Allergy Unknown Unknown Verified 12/05/22 05:02 [From Augmentin] cyclobenzaprine Allergy Palpitation Verified 12/05/22 05:02 [From Flexeril] s escitalopram Allergy Palpitation Verified 12/05/22 05:02 s Review of Systems Constitutional: Constitutional: Reports chills, Denies fatigue, Reports fever(s) and Denies headache(s) ENT: Denies headache(s) Cardiovascular: Cardiovascular: Denies dyspnea Respiratory: Respiratory: Denies cough and Denies dyspnea Neurologic: Denies headache(s) and Denies focal weakness Endocrine: Endocrine: Denies fatigue PMFSH Past Medical History Medical History Anemia Anxiety HTN (hypertension) Surgical History H/O: Social History Social History Alcohol intake: never Patient Tobacco Use Status: Never used Tobacco Physical Exam ED Vital Signs: Vital Signs - 24 hr 12/30/22 18:21 Temperature 98.7 F Pulse Rate 75 Respiratory Rate 18 Blood Pressure 159/94 H Pulse Oximetry 98 Oxygen Delivery Method Room Air BMI result Body Mass Index 29.9 Const General: healthy appearing, comfortable, no acute distress, alert and awake Nutritional Appearance: well nourished Orientation/consciousness: patient oriented x3 HENMT Other: Patient has dental extraction from a left upper and left lower molar. There is mild erythema purulent drainage within the sockets. No significant edema or obvious the some gingival abscess Head: Yes normocephalic and Yes atraumatic Teeth and gingiva: abnormal tooth and associated gingiva Throat: Yes posterior oropharynx normal Eyes Eyelids: Yes eyelids normal Conjunctivae: conjunctivae normal Sclerae: sclerae normal Corneas: corneas normal Pupils: Equal, round and reactive pupils present EOM: EOMs intact bilaterally Neck Neck: Yes full ROM Resp Effort & Inspection: normal respiratory effort, able to speak in complete sentences, no audible wheezes and not labored Auscultation: clear to auscultation bilaterally Cardio Rate: regular rate Rhythm: regular rhythm GI Inspection: No distended Palpation (GI): Soft to palpation, not firm, nontender, no guarding and not rigid Auscultation: normoactive bowel sounds Skin General skin exam: no rashes or lesions noted and elasticity normal Neuro General: patient oriented x3 Cranial nerves: Yes CN's II-XII intact bilaterally, Yes Equal, round and reactive pupils present and Yes Bilaterally intact EOM present Cognition (Neuro): normal cognition Extrem Other: Moving all extremities well without any obvious deformities Medical Decision Making Medical Decision Making MDM Narrative: Patient a dental procedure and appears to have infection to left upper and lower and surgical site. She has an allergy to amoxicillin has been on clindamycin for 1 month. Will start the patient on azithromycin as well and she was instructed to continue using her mouthwash. She will follow-up with her oral surgeon. Patient is nontoxic appearing, afebrile with stable vital signs Differential Diagnosis Facial swelling Facial pain Gingivitis Dental abscess Discharge Plan Discharge Clinical Impression: Gingival abscess Patient Disposition: Home, Self-Care Instructions: Tooth Extraction (DC) Prescriptions: New azithromycin 250 mg tablet See Rx Instructions .ROUTE .COMPLEX Qty: 6 0RF Rx Instructions: For 250 mg dose pack: take 500 mg today (day 1), then 250 mg for 4 days (days 2-5) chlorhexidine gluconate 0.12 % mouthwash 15 ml buccal BID 7 Days Qty: 300 0RF No Action lorazepam [Ativan] 0.5 mg tablet 0.5 mg PO BEDTIME PRN (Reason: anxiety) Qty: 14 0RF metoclopramide HCl [Reglan] 10 mg tablet 10 mg PO Q6H PRN (Reason: nausea and vomiting) Qty: 14 0RF cyclobenzaprine 5 mg tablet 5 mg PO TID PRN (Reason: muscle spasm) Qty: 10 0RF ibuprofen 600 mg tablet 600 mg PO Q6H PRN (Reason: pain) Qty: 30 0RF azithromycin [Zithromax Z-Trevor] 250 mg tablet 250 mg PO DAILY 5 Days Qty: 5 0RF erythromycin 5 mg/gram (0.5 %) ointment 0.5 inch ophthalmic (eye) TID Qty: 3.5 0RF clindamycin HCl 300 mg capsule 300 mg PO TID 10 Days Qty: 30 0RF ibuprofen 800 mg tablet 800 mg PO Q8H PRN (Reason: pain) Qty: 14 0RF oxycodone-acetaminophen [Percocet] 5-325 mg tablet 1 tab PO Q6H PRN (Reason: pain) Qty: 10 0RF ondansetron 4 mg tablet,disintegrating 4 mg PO Q6-8H PRN (Reason: nausea and vomiting) Qty: 7 0RF ciprofloxacin HCl 500 mg tablet 500 mg PO Q12H 5 Days Qty: 10 0RF cefpodoxime 100 mg tablet 100 mg PO BID Qty: 20 0RF Rx Instructions: must administer with a meal/food ondansetron 4 mg tablet,disintegrating 4 mg PO Q8H PRN (Reason: nausea and vomiting) Qty: 10 0RF clindamycin HCl 150 mg capsule 150 mg PO TID Qty: 20 0RF ibuprofen 400 mg tablet 400 mg PO Q8H PRN (Reason: pain) Qty: 30 0RF lorazepam [Ativan] 0.5 mg tablet 0.5 mg PO BID PRN (Reason: anxiety) Qty: 10 0RF ondansetron 4 mg tablet,disintegrating 4 mg PO Q6H PRN (Reason: nausea and vomiting) Qty: 7 0RF lorazepam [Ativan] 0.5 mg tablet 0.5 mg PO BID PRN (Reason: anxiety) Qty: 10 0RF lorazepam [Ativan] 1 mg tablet 1 mg PO BID PRN (Reason: anxiety/sleep) Qty: 14 0RF ibuprofen 600 mg tablet 600 mg PO Q8H PRN (Reason: pain) Qty: 30 0RF tramadol 50 mg tablet 50 mg PO Q8H PRN (Reason: pain) Qty: 8 0RF clindamycin HCl 300 mg capsule 300 mg PO Q8H 7 Days Qty: 21 0RF ciprofloxacin-dexamethasone [Ciprodex] 0.3-0.1 % drops,suspension 4 drp otic (ears) BID 7 Days Qty: 7.5 0RF ciprofloxacin HCl [Cipro] 500 mg tablet 500 mg PO BID Qty: 14 0RF famotidine [Pepcid] 20 mg tablet 20 mg PO BID 10 Days Qty: 20 0RF clindamycin HCl 300 mg capsule 300 mg PO QID 10 Days Qty: 40 0RF naproxen 500 mg tablet 500 mg PO BID PRN (Reason: pain) 7 Days Qty: 14 0RF pantoprazole [Protonix] 40 mg tablet,delayed release (DR/EC) 40 mg PO DAILY Qty: 14 0RF tramadol 50 mg tablet 50 mg PO Q8H PRN (Reason: pain) Qty: 8 0RF Interventions: ED Discharge Assessment Last Done: 12/30/22 18:30
== END 2022-12-30 18:38 | disposition home or self-care (01) ==
PROVIDERS: Emergency Provider Emergency Medicine
DX: K05.20 Aggressive periodontitis, unspecified (principal); Z79.899 Other long term (current) drug therapy
CPT/HCPCS: 99282; 99283

== ENCOUNTER 2023-01-16 03:00 | Emergency (ER) | payer OTHER, SELFPAY ==
--- NOTE | ~2023-01-16 | XR_ITS ---
EXAMINATION: XR CHEST CLINICAL INFORMATION: Cough COMPARISON: 12/05/2022. TECHNIQUE: 2 views of the chest were obtained. FINDINGS: No significant abnormality is noted involving the heart, lungs, mediastinum, bony thorax or soft tissues. XR/XR chest 2V IMPRESSION: Unremarkable examination.
[2023-01-16 03:19] VITALS: BP 136/94; BP 139/84; PULSE 82; PULSE 86; RESP 18; TEMP 37; O2SAT 98; O2SAT 99; BMI 26.6
[2023-01-16 04:39] LABS: Basophils Absolute Auto 0.1 X10*3/uL (0.0-0.2); Basophils Percent Auto 0.5 % (0-2); Eosinophils Absolute Auto 0.2 X10*3/uL (0.0-0.4); Eosinophils Percent Auto 1.7 % (0-4); Hematocrit 33.3 % (37.0-47.0); Imm Gran Abs Auto 0.03 X10*3/uL (0.00-0.03); Imm Gran Pct Auto 0.3 % (0.0-0.4); Lymphocytes Absolute Auto 1.5 X10*3/uL (1.2-4.9); Lymphocytes Percent Auto 13.5 % (20-40); MANUAL DIFF FLAG NO; Mean Corpuscular Hemoglobin 21.2 pg (27.0-33.0); Mean Corpuscular Volume 70.7 fL (80.0-98.0); Mean Platelet Volume 11.7 fL (9.4-12.3); Monocytes Absolute Auto 0.5 X10*3/uL (0.1-1.2); Neutrophils Absolute Auto 8.6 x10*3/uL (2.0-8.3); Platelet Count 311 X10*3/uL (160-400); Red Blood Count 4.71 X10*6/uL (4.20-5.50); Red Cell Distribution Width 15.3 % (11.0-16.0); White Blood Count 10.9 X10*3/uL (4.8-10.8)
[2023-01-16 04:42] VITALS: BP 128/75; PULSE 75; RESP 16; TEMP 36.7; O2SAT 98
[2023-01-16 04:56] LABS: Alanine Aminotransferase 12 U/L (0-31); Albumin Level 4.5 g/dL (3.5-5.0); Alkaline Phosphatase 67 U/L (39-117); Anion Gap 14 (12-20); Aspartate Amino Transferase 13 U/L (5-31); Bilirubin Total 0.3 mg/dL (0.0-1.0); Blood Urea Nitrogen 12 mg/dL (9-16); Calcium 9.2 mg/dL (8.4-10.2); Carbon Dioxide 25 mmol/L (22-29); Chloride 104 mmol/L (96-108); Creatinine Clr Calc Pharmacy 91.2; Estimated Glomerular Filt Rate > 60; Glucose Random 110 mg/dL (60-115); Potassium 3.8 mmol/L (3.3-5.1); Sodium 139 mmol/L (135-145); Total Protein 7.5 g/dL (6.5-8.0)
--- NOTE | 2023-01-16 07:53 | ED.GENADULT ---
HPI - General Adult General Chief complaint: Headache <REVA Lozoya Last Filed: 01/17/23 17:25> Stated complaint: ? Allergic Reaction <REVA Lozoya Last Filed: 01/17/23 17:25> Time Seen by Provider: 01/16/23 05:04 <REVA Lozoya Last Filed: 01/17/23 17:25> Source: patient and RN notes reviewed <REVA Lozoya Last Filed: 01/17/23 17:25> Mode of arrival: ambulatory <REVA Lozoya Last Filed: 01/17/23 17:25> Limitations: no limitations <REVA Lozoya Last Filed: 01/17/23 17:25> History of Present Illness HPI narrative: This is a 27-year-old female, with a past medical history of idiopathic hypoglycemia, who presents emergency department today with complaints of chills, subjective fevers x 3 days, and headache and acid reflux since this morning. Patient reports that she has been told that at times she gets low glucose levels which she knows as she will get a headache and dizziness. She felt the symptoms last night after she injected herself glucagon. She has no known diagnosis of diabetes. She is currently in the middle of switching over her primary care physician in has no one to be managing the symptoms. She states that since she injected herself with a glucose on she developed a headache and some acid reflux. She also admits that over the last several days she has had some fevers and chills, denies nasal congestion, rhinorrhea, ear pain, sore throat. She reports that she has had a cough. Denies any shortness of breath or palpitations. Denies taking any medications at home to treat the symptoms. No other complaints or concerns at this time. <REVA Lozoya Last Filed: 01/17/23 17:25> MD complaint: Subjective fevers, chills, SCOTT, acid reflux <REVA Lozoya Last Filed: 01/17/23 17:25> Onset (ago): day(s) <REVA Lozoya Last Filed: 01/17/23 17:25> Related Data Home medications: Previous Rx's Medication Instructions Recorded azithromycin 250 mg tablet 250 mg PO DAILY 5 days #5 tabs 06/14/20 (Zithromax Z-Trevor) clindamycin HCl 300 mg capsule 300 mg PO TID Periorbital 08/15/20 cellulitis 10 days #30 caps erythromycin 5 mg/gram (0.5 %) eye 0.5 inch ophthalmic (eye) TID #3.5 08/15/20 ointment grams ibuprofen 800 mg tablet 800 mg PO Q8H PRN pain #14 tabs 08/15/20 oxycodone-acetaminophen 5 mg-325 1 tab PO Q6H PRN pain #10 tabs 08/15/20 mg tablet (Percocet) lorazepam 0.5 mg tablet (Ativan) 0.5 mg PO BEDTIME PRN anxiety #14 10/31/20 tabs metoclopramide HCl 10 mg tablet 10 mg PO Q6H PRN nausea and 02/22/21 (Reglan) vomiting #14 tabs cyclobenzaprine 5 mg tablet 5 mg PO TID PRN muscle spasm #10 05/10/21 tabs ibuprofen 600 mg tablet 600 mg PO Q6H PRN pain #30 tabs 05/10/21 lorazepam 1 mg tablet (Ativan) 1 mg PO BID PRN anxiety/sleep #14 07/02/21 tabs ondansetron 4 mg disintegrating 4 mg PO Q6-8H PRN nausea and 07/16/21 tablet vomiting #7 tabs ciprofloxacin HCl 500 mg tablet 500 mg PO Q12H 5 days #10 tabs 10/05/21 cefpodoxime 100 mg tablet 100 mg PO BID #20 tabs 10/08/21 clindamycin HCl 300 mg capsule 300 mg PO Q8H 7 days #21 caps 10/22/21 ibuprofen 600 mg tablet 600 mg PO Q8H PRN pain #30 tabs 10/22/21 tramadol 50 mg tablet 50 mg PO Q8H PRN pain #8 tabs 10/22/21 ondansetron 4 mg disintegrating 4 mg PO Q8H PRN nausea and 01/26/22 tablet vomiting #10 tabs ciprofloxacin 0.3 %-dexamethasone 4 drp otic (ears) BID 7 days #7.5 05/06/22 0.1 % ear drops,suspension mL (Ciprodex) ciprofloxacin HCl 500 mg tablet 500 mg PO BID #14 tabs 05/06/22 (Cipro) clindamycin HCl 150 mg capsule 150 mg PO TID #20 caps 06/13/22 ibuprofen 400 mg tablet 400 mg PO Q8H PRN pain #30 tabs 06/13/22 famotidine 20 mg tablet (Pepcid) 20 mg PO BID 10 days #20 tabs 07/31/22 lorazepam 0.5 mg tablet (Ativan) 0.5 mg PO BID PRN anxiety #10 tabs 09/21/22 lorazepam 0.5 mg tablet (Ativan) 0.5 mg PO BID PRN anxiety #10 tabs 09/21/22 ondansetron 4 mg disintegrating 4 mg PO Q6H PRN nausea and 09/21/22 tablet vomiting #7 tabs pantoprazole 40 mg tablet,delayed 40 mg PO DAILY #14 tabs 12/05/22 release (Protonix) clindamycin HCl 300 mg capsule 300 mg PO QID 10 days #40 caps 12/19/22 naproxen 500 mg tablet 500 mg PO BID PRN pain 7 days #14 12/19/22 tabs tramadol 50 mg tablet 50 mg PO Q8H PRN pain #8 tabs 12/28/22 azithromycin 250 mg tablet See Rx Instructions PO .COMPLEX #6 12/30/22 tabs chlorhexidine gluconate 0.12 % 15 ml buccal BID 7 days #300 mL 12/30/22 mouthwash omeprazole 20 mg capsule,delayed 20 mg PO DAILY #30 caps 01/16/23 release ondansetron 4 mg disintegrating 4 mg PO Q6-8H PRN nausea and 01/16/23 tablet vomiting #10 tabs cefuroxime axetil 250 mg tablet 250 mg PO BID 7 days #14 tabs 01/19/23 <REVA Lozoya - Last Filed: 01/17/23 17:25> Allergies/adverse reactions: Allergies Allergy/AdvReac Type Severity Reaction Status Date / Time amoxicillin [AMOXICILLIN] Allergy Unknown UNKNOWN Verified 12/05/22 05:02 clavulanic acid Allergy Unknown Unknown Verified 12/05/22 05:02 [From Augmentin] cyclobenzaprine Allergy Palpitation Verified 12/05/22 05:02 [From Flexeril] s escitalopram Allergy Palpitation Verified 12/05/22 05:02 s <REVA Lozoya - Last Filed: 01/17/23 17:25> Review of Systems Review of Systems: Constitutional: No Weight loss, No Fever, No Chills, No Night Sweats, No Fatigue, No Malaise ENT/Mouth: No Hearing loss, No Ear Pain, No Nasal Congestion, No Sinus Pain, No Hoarseness, No sore throat, No Rhinorrhea, No Swallowing Difficulty Eyes: No Eye Pain, No Swelling, No Redness, No Foreign Body, No Discharge, No Vision Changes Cardiovascular: No Chest Pain, No SOB, No Dyspnea on Exertion, No Orthopnea, No Edema, No Palpitations Respiratory: No Cough, No Sputum, No Wheezing, No Smoke Exposure, No Dyspnea Gastrointestinal: No Nausea, No Vomiting, No Diarrhea, No Constipation, No Abdominal pain, No Hematochezia, No Melena Genitourinary: No irregular bleeding, No Dysuria, No Urinary Frequency, No Hematuria, No Urinary Incontinence/retention, No Urgency, No Flank Pain, No Urinary Flow Changes, No Hesitancy Musculoskeletal: No joint pain, No Myalgias, No Joint Swelling Skin: No Skin Lesions, No rash Neuro: No Weakness, No Numbness, No Paresthesias, No Loss of Consciousness, No Dizziness, No Headache Psych: No Anxiety/Panic, No Depression, No SI/HI/AH/VH, No Social Issues, Heme/Lymph: No Bruising, No Bleeding,No Lymphadenopathy Endocrine: No Polyuria, No Polydipsia, No Temperature Intolerance <REVA Lozoya Last Filed: 01/17/23 17:25> Yes all other systems are reviewed and are negative <REVA Lozoya Last Filed: 01/17/23 17:25> Constitutional: Constitutional: Reports as per HPI <REVA Lozoya Last Filed: 01/17/23 17:25> PMFSH Past Medical History Medical History: Medical History Anemia Anxiety HTN (hypertension) <REVA Lozoya Last Filed: 01/17/23 17:25> Surgical History: Surgical History H/O: <REVA Lozoya Last Filed: 01/17/23 17:25> Social History Social History: Social History Alcohol intake: never Patient Tobacco Use Status: Never used Tobacco Advance Directives: No Advance Directives Information Provided: No <REVA Lozoya - Last Filed: 01/17/23 17:25> Physical Exam ED Vital Signs: Vital Signs - 24 hr 01/16/23 03:19 01/16/23 04:42 Temperature 98.6 F 98.0 F Pulse Rate 86 75 Respiratory Rate 18 16 Blood Pressure 139/84 128/75 Pulse Oximetry 98 98 Oxygen Delivery Method Room Air BMI result Body Mass Index 26.6 <REVA Lozoya - Last Filed: 01/17/23 17:25> Vital Signs - 24 hr 01/16/23 03:19 01/16/23 04:42 Temperature 98.6 F 98.0 F Pulse Rate 86 75 Respiratory Rate 18 16 Blood Pressure 139/84 128/75 Pulse Oximetry 98 98 Oxygen Delivery Method Room Air BMI result Body Mass Index 26.6 <REVA Wright - Last Filed: 01/19/23 08:07> Const General: cooperative, comfortable and no acute distress <REVA Lozoya - Last Filed: 01/17/23 17:25> Orientation/consciousness: patient oriented x3 <REVA Lozoya - Last Filed: 01/17/23 17:25> Limitations: no limitations <REVA Lozoya - Last Filed: 01/17/23 17:25> HENFL Head: Yes normal to inspection, Yes normocephalic and Yes atraumatic <REVA Lozoya - Last Filed: 01/17/23 17:25> Ears: hearing grossly normal bilaterally <REVA Lozoya - Last Filed: 01/17/23 17:25> General nose exam: Normal external nose present <REVA Lozoya - Last Filed: 01/17/23 17:25> Face and sinus: Yes normal facial exam <REVA Lozoya - Last Filed: 01/17/23 17:25> Mouth: Normal oral and palatal mucosa present, oropharynx normal and moist mucous membranes <REVA Lozoya - Last Filed: 01/17/23 17:25> Throat: Yes posterior oropharynx normal <Nanci Poe [facility] Last Filed: 01/17/23 17:25> Eyes General: appearance normal, both eyes and all related structures <Nanic Poe [facility] Last Filed: 01/17/23 17:25> Eyelids: Yes eyelids normal <Nanci Poe [facility] Last Filed: 01/17/23 17:25> Conjunctivae: conjunctivae normal <Nanci Poe [facility] Last Filed: 01/17/23 17:25> Sclerae: sclerae normal <Nnaci Poe AR - Last Filed: 01/17/23 17:25> Pupils: Equal, round and reactive pupils present <Nanci Poe [facility] Last Filed: 01/17/23 17:25> EOM: EOMs intact bilaterally <Nanci Poe [facility] Last Filed: 01/17/23 17:25> Neck Neck: Yes normal visual inspection, Yes full ROM and Yes no lymphadenopathy <Nanci Poe [facility] Last Filed: 01/17/23 17:25> Lymphatic: no lymphadenopathy noted <Nanci Poe [facility] Last Filed: 01/17/23 17:25> Chest Chest palpation & inspection: normal inspection of the chest <Nanci Poe [facility] Last Filed: 01/17/23 17:25> Resp Effort & Inspection: normal respiratory effort and able to speak in complete sentences <Nanci Poe [facility] Last Filed: 01/17/23 17:25> Auscultation: clear to auscultation bilaterally, no crackles, no rales, no rhonchi and no wheezes <Nanci Poe [facility] Last Filed: 01/17/23 17:25> Cardio Rate: regular rate <Nanci Poe [facility] Last Filed: 01/17/23 17:25> Rhythm: regular rhythm <Nanci Masseyyarelis [facility] Last Filed: 01/17/23 17:25> Heart sounds: S1 normal heart sound present and S2 normal heart sound present <Nanci Masseyyarelis [facility] Last Filed: 01/17/23 17:25> GI Other: Abdomen is soft, with mild tenderness in the epigastric region. No rebound or guarding. Normoactive bowel sounds. <Nanci Poe PA - Last Filed: 01/17/23 17:25> Inspection: Yes normal to inspection <Nanci Poe PA - Last Filed: 01/17/23 17:25> Skin General skin exam: no rashes or lesions noted <Nanci Poe PA - Last Filed: 01/17/23 17:25> Trauma: no lacerations or abrasions <Nanci Poe PA - Last Filed: 01/17/23 17:25> Wounds: no wounds <Nanci Poe PA - Last Filed: 01/17/23 17:25> Neuro General: patient oriented x3 and moves all extremities <Nanci Poe PA - Last Filed: 01/17/23 17:25> Cranial nerves: Yes Equal, round and reactive pupils present <Nanci Poe PA - Last Filed: 01/17/23 17:25> Extrem General: Yes normal to inspection <Nanci Poe PA - Last Filed: 01/17/23 17:25> Right upper extremity: normal to inspection <Nanci Poe PA - Last Filed: 01/17/23 17:25> Left upper extremity: normal to inspection <Nanci Poe PA - Last Filed: 01/17/23 17:25> Right lower extremity: normal to inspection <Nanci Poe PA - Last Filed: 01/17/23 17:25> Left lower extremity: normal to inspection <Nanci Poe PA - Last Filed: 01/17/23 17:25> Course Reevaluation(s) Reevaluation #1: 01/19/23--patient's urine culture grew greater than 100,000 mixed bacterial raz and strep agalactiae. 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 Sent in Ceftin 250 b.i.d. to pharmacy <REVA Wright - Last Filed: 01/19/23 08:07> Time: 08:07 <REVA Wright Last Filed: 01/19/23 08:07> Medications Administered Discontinued Medications Generic Name Dose Route Start Last Admin Trade Name Freq PRN Reason Stop Dose Admin Al Hydroxide/Mg Hydroxide 30 ml 01/16/23 09:44 01/16/23 10:11 Magnesium Hydrox/Alum Hydrox 30 Ml Oral.Susp PO 01/16/23 09:45 30 ml ONCE ONE Administration Belladonna Alkaloids/Phenobarbital 10 ml 01/16/23 09:44 01/16/23 10:12 Phenobarb/Hyoscy/Atropine/Scop 10 Ml Elixir PO 01/16/23 09:45 10 ml ONCE ONE Administration Lidocaine HCl 15 ml 01/16/23 09:44 01/16/23 10:12 Lidocaine Hcl Viscous 2 % 15 Ml Solution MUCOUS MEM 01/16/23 09:45 15 ml ONCE ONE Administration <REVA Lozoya - Last Filed: 01/17/23 17:25> Medications Administered Discontinued Medications Generic Name Dose Route Start Last Admin Trade Name Bob PRN Reason Stop Dose Admin Al Hydroxide/Mg Hydroxide 30 ml 01/16/23 09:44 01/16/23 10:11 Magnesium Hydrox/Alum Hydrox 30 Ml Oral.Susp PO 01/16/23 09:45 30 ml ONCE ONE Administration Belladonna Alkaloids/Phenobarbital 10 ml 01/16/23 09:44 01/16/23 10:12 Phenobarb/Hyoscy/Atropine/Scop 10 Ml Elixir PO 01/16/23 09:45 10 ml ONCE ONE Administration Lidocaine HCl 15 ml 01/16/23 09:44 01/16/23 10:12 Lidocaine Hcl Viscous 2 % 15 Ml Solution MUCOUS MEM 01/16/23 09:45 15 ml ONCE ONE Administration <REVA Wright - Last Filed: 01/19/23 08:07> Medical Decision Making Medical Decision Making MDM Narrative: This is a 27-year-old female, with a past medical history of idiopathic hypoglycemia, who presents emergency department today with complaints of chills, subjective fevers x 3 days, and headache and acid reflux since this morning. On examination, vital signs are stable. Abdomen is soft, nontender. Lungs CTAB Chest x-ray unremarkable. Viral swabs unremarkable. Airway is patent, patient has no difficulty swallowing or shortness of breath. Urinalysis unremarkable. Patient given GI cocktail with symptomatic improvement. The patient states that she is currently taking glucagon for hypoglycemia however good meds today. Discussed with patient the importance of follow-up care physician. Patient is feeling well and is requesting to be discharged home. <REVA Lozoya - Last Filed: 01/17/23 17:25> Differential Diagnosis Differential Diagnoses: The differential diagnosis associated with the presentation includes <REVA Lozoya - Last Filed: 01/17/23 17:25> viral syndrome, gastritis, adverse med reaction, COVID, pneumonia, hypoglycemia. <REVA Lozoya - Last Filed: 01/17/23 17:25> Admission/Observation Consideration of admission/observation: Escalation of care including admission/observation considered <REVA Lozoya - Last Filed: 01/17/23 17:25> Lab Data MDM Lab Attestation statement: I reviewed the patient's lab results. <REVA Lozoya - Last Filed: 01/17/23 17:25> Result Diagrams: 01/16/23 04:31 01/16/23 04:31 <REVA Lozoya - Last Filed: 01/17/23 17:25> Labs: Lab Results 01/16/23 01/16/23 01/16/23 Range/Units 04:31 04:31 08:11 WBC 10.9 H (4.8-10.8) X10*3/uL RBC 4.71 (4.20-5.50) X10*6/uL Hgb 10.0 L (12.0-16.0) g/dl Hct 33.3 L (37.0-47.0) % MCV 70.7 L (80.0-98.0) fL MCH 21.2 L (27.0-33.0) pg MCHC 30.0 L (31.0-35.0) g/dl RDW 15.3 (11.0-16.0) % Plt Count 311 (160-400) X10*3/uL MPV 11.7 (9.4-12.3) fL Immature Gran % (Auto) 0.3 (0.0-0.4) % Neut % (Auto) 79.0 H (45-73) % Lymph % (Auto) 13.5 L (20-40) % [place] % (Auto) 5.0 (2-11) % Eos % (Auto) 1.7 (0-4) % Baso % (Auto) 0.5 (0-2) % Lymph # (Auto) 1.5 (1.2-4.9) X10*3/uL [place] # (Auto) 0.5 (0.1-1.2) X10*3/uL Eos # (Auto) 0.2 (0.0-0.4) X10*3/uL Baso # (Auto) 0.1 (0.0-0.2) X10*3/uL Abs Immat Gran (auto) 0.03 (0.00-0.03) X10*3/uL Absolute Neuts (auto) 8.6 H (2.0-8.3) x10*3/uL Absolute Nucleated RBC 0.000 (0.0-0.012) X10*3/uL Nucleated RBC % (auto) 0.0 (0.0-0.2) /100WBC Sodium 139 (135-145) mmol/L Potassium 3.8 (3.3-5.1) mmol/L Chloride 104 (96-108) mmol/L Carbon Dioxide 25 (22-29) mmol/L Anion Gap 14 (12-20) BUN 12 (9-16) mg/dL Creatinine 0.85 (0.5-1.4) mg/dL Estim Creat Clear Calc 91.2 Estimated GFR > 60 POC Glucose (60-115) mg/dL Random Glucose 110 (60-115) mg/dL Calcium 9.2 (8.4-10.2) mg/dL Total Bilirubin 0.3 (0.0-1.0) mg/dL AST 13 (5-31) U/L ALT 12 (0-31) U/L Alkaline Phosphatase 67 (39-117) U/L Total Protein 7.5 (6.5-8.0) g/dL Albumin 4.5 (3.5-5.0) g/dL Urine Color Urine Appearance Urine pH (5.0-9.0) Ur Specific Seltzer (1.005-1.025) Urine Protein (Neg-Trace) mg/dL Urine Glucose (UA) (Negative) mg/dL Urine Ketones (Negative) mg/dL Urine Blood (Negative) Urine Nitrite (Negative) Ur Leukocyte Esterase (Negative) Urine RBC (0-2) /HPF Urine WBC (0-5) /HPF Ur Squamous Epith Cells (0-2) /HPF Urine Bacteria (None Seen) Hyaline Casts (0-2) /LPF Influenza Type A (PCR) NEGATIVE (Negative) Influenza Type B (PCR) NEGATIVE (Negative) RSV RNA Qual (PCR) NEGATIVE (Negative) SARS-CoV-2 RNA (RT-PCR) NEGATIVE (Negative) 01/16/23 01/16/23 Range/Units 08:11 10:16 WBC (4.8-10.8) X10*3/uL RBC (4.20-5.50) X10*6/uL Hgb (12.0-16.0) g/dl Hct (37.0-47.0) % MCV (80.0-98.0) fL MCH (27.0-33.0) pg MCHC (31.0-35.0) g/dl RDW (11.0-16.0) % Plt Count (160-400) X10*3/uL MPV (9.4-12.3) fL Immature Gran % (Auto) (0.0-0.4) % Neut % (Auto) (45-73) % Lymph % (Auto) (20-40) % [place] % (Auto) (2-11) % Eos % (Auto) (0-4) % Baso % (Auto) (0-2) % Lymph # (Auto) (1.2-4.9) X10*3/uL [place] # (Auto) (0.1-1.2) X10*3/uL Eos # (Auto) (0.0-0.4) X10*3/uL Baso # (Auto) (0.0-0.2) X10*3/uL Abs Immat Gran (auto) (0.00-0.03) X10*3/uL Absolute Neuts (auto) (2.0-8.3) x10*3/uL Absolute Nucleated RBC (0.0-0.012) X10*3/uL Nucleated RBC % (auto) (0.0-0.2) /100WBC Sodium (135-145) mmol/L Potassium (3.3-5.1) mmol/L Chloride (96-108) mmol/L Carbon Dioxide (22-29) mmol/L Anion Gap (12-20) BUN (9-16) mg/dL Creatinine (0.5-1.4) mg/dL Estim Creat Clear Calc Estimated GFR POC Glucose 79 (60-115) mg/dL Random Glucose (60-115) mg/dL Calcium (8.4-10.2) mg/dL Total Bilirubin (0.0-1.0) mg/dL AST (5-31) U/L ALT (0-31) U/L Alkaline Phosphatase (39-117) U/L Total Protein (6.5-8.0) g/dL Albumin (3.5-5.0) g/dL Urine Color Dark Yellow Urine Appearance Cloudy Urine pH 6.5 (5.0-9.0) Ur Specific Seltzer 1.025 (1.005-1.025) Urine Protein 300 (3+) H (Neg-Trace) mg/dL Urine Glucose (UA) Negative (Negative) mg/dL Urine Ketones Trace (Negative) mg/dL Urine Blood Large (3+) H (Negative) Urine Nitrite Negative (Negative) Ur Leukocyte Esterase Small (1+) H (Negative) Urine RBC >20 H (0-2) /HPF Urine WBC 21-50 H (0-5) /HPF Ur Squamous Epith Cells 0-2 (0-2) /HPF Urine Bacteria Trace (None Seen) Hyaline Casts 0-2 (0-2) /LPF Influenza Type A (PCR) (Negative) Influenza Type B (PCR) (Negative) RSV RNA Qual (PCR) (Negative) SARS-CoV-2 RNA (RT-PCR) (Negative) <REVA Lozoya - Last Filed: 01/17/23 17:25> Lab Results 01/16/23 01/16/23 01/16/23 Range/Units 04:31 04:31 08:11 WBC 10.9 H (4.8-10.8) X10*3/uL RBC 4.71 (4.20-5.50) X10*6/uL Hgb 10.0 L (12.0-16.0) g/dl Hct 33.3 L (37.0-47.0) % MCV 70.7 L (80.0-98.0) fL MCH 21.2 L (27.0-33.0) pg MCHC 30.0 L (31.0-35.0) g/dl RDW 15.3 (11.0-16.0) % Plt Count 311 (160-400) X10*3/uL MPV 11.7 (9.4-12.3) fL Immature Gran % (Auto) 0.3 (0.0-0.4) % Neut % (Auto) 79.0 H (45-73) % Lymph % (Auto) 13.5 L (20-40) % [place] % (Auto) 5.0 (2-11) % Eos % (Auto) 1.7 (0-4) % Baso % (Auto) 0.5 (0-2) % Lymph # (Auto) 1.5 (1.2-4.9) X10*3/uL [place] # (Auto) 0.5 (0.1-1.2) X10*3/uL Eos # (Auto) 0.2 (0.0-0.4) X10*3/uL Baso # (Auto) 0.1 (0.0-0.2) X10*3/uL Abs Immat Gran (auto) 0.03 (0.00-0.03) X10*3/uL Absolute Neuts (auto) 8.6 H (2.0-8.3) x10*3/uL Absolute Nucleated RBC 0.000 (0.0-0.012) X10*3/uL Nucleated RBC % (auto) 0.0 (0.0-0.2) /100WBC Sodium 139 (135-145) mmol/L Potassium 3.8 (3.3-5.1) mmol/L Chloride 104 (96-108) mmol/L Carbon Dioxide 25 (22-29) mmol/L Anion Gap 14 (12-20) BUN 12 (9-16) mg/dL Creatinine 0.85 (0.5-1.4) mg/dL Estim Creat Clear Calc 91.2 Estimated GFR > 60 POC Glucose (60-115) mg/dL Random Glucose 110 (60-115) mg/dL Calcium 9.2 (8.4-10.2) mg/dL Total Bilirubin 0.3 (0.0-1.0) mg/dL AST 13 (5-31) U/L ALT 12 (0-31) U/L Alkaline Phosphatase 67 (39-117) U/L Total Protein 7.5 (6.5-8.0) g/dL Albumin 4.5 (3.5-5.0) g/dL Urine Color Urine Appearance Urine pH (5.0-9.0) Ur Specific Seltzer (1.005-1.025) Urine Protein (Neg-Trace) mg/dL Urine Glucose (UA) (Negative) mg/dL Urine Ketones (Negative) mg/dL Urine Blood (Negative) Urine Nitrite (Negative) Ur Leukocyte Esterase (Negative) Urine RBC (0-2) /HPF Urine WBC (0-5) /HPF Ur Squamous Epith Cells (0-2) /HPF Urine Bacteria (None Seen) Hyaline Casts (0-2) /LPF Influenza Type A (PCR) NEGATIVE (Negative) Influenza Type B (PCR) NEGATIVE (Negative) RSV RNA Qual (PCR) NEGATIVE (Negative) SARS-CoV-2 RNA (RT-PCR) NEGATIVE (Negative) 01/16/23 01/16/23 Range/Units 08:11 10:16 WBC (4.8-10.8) X10*3/uL RBC (4.20-5.50) X10*6/uL Hgb (12.0-16.0) g/dl Hct (37.0-47.0) % MCV (80.0-98.0) fL MCH (27.0-33.0) pg MCHC (31.0-35.0) g/dl RDW (11.0-16.0) % Plt Count (160-400) X10*3/uL MPV (9.4-12.3) fL Immature Gran % (Auto) (0.0-0.4) % Neut % (Auto) (45-73) % Lymph % (Auto) (20-40) % [place] % (Auto) (2-11) % Eos % (Auto) (0-4) % Baso % (Auto) (0-2) % Lymph # (Auto) (1.2-4.9) X10*3/uL [place] # (Auto) (0.1-1.2) X10*3/uL Eos # (Auto) (0.0-0.4) X10*3/uL Baso # (Auto) (0.0-0.2) X10*3/uL Abs Immat Gran (auto) (0.00-0.03) X10*3/uL Absolute Neuts (auto) (2.0-8.3) x10*3/uL Absolute Nucleated RBC (0.0-0.012) X10*3/uL Nucleated RBC % (auto) (0.0-0.2) /100WBC Sodium (135-145) mmol/L Potassium (3.3-5.1) mmol/L Chloride (96-108) mmol/L Carbon Dioxide (22-29) mmol/L Anion Gap (12-20) BUN (9-16) mg/dL Creatinine (0.5-1.4) mg/dL Estim Creat Clear Calc Estimated GFR POC Glucose 79 (60-115) mg/dL Random Glucose (60-115) mg/dL Calcium (8.4-10.2) mg/dL Total Bilirubin (0.0-1.0) mg/dL AST (5-31) U/L ALT (0-31) U/L Alkaline Phosphatase (39-117) U/L Total Protein (6.5-8.0) g/dL Albumin (3.5-5.0) g/dL Urine Color Dark Yellow Urine Appearance Cloudy Urine pH 6.5 (5.0-9.0) Ur Specific Seltzer 1.025 (1.005-1.025) Urine Protein 300 (3+) H (Neg-Trace) mg/dL Urine Glucose (UA) Negative (Negative) mg/dL Urine Ketones Trace (Negative) mg/dL Urine Blood Large (3+) H (Negative) Urine Nitrite Negative (Negative) Ur Leukocyte Esterase Small (1+) H (Negative) Urine RBC >20 H (0-2) /HPF Urine WBC 21-50 H (0-5) /HPF Ur Squamous Epith Cells 0-2 (0-2) /HPF Urine Bacteria Trace (None Seen) Hyaline Casts 0-2 (0-2) /LPF Influenza Type A (PCR) (Negative) Influenza Type B (PCR) (Negative) RSV RNA Qual (PCR) (Negative) SARS-CoV-2 RNA (RT-PCR) (Negative) <REVA Wright - Last Filed: 01/19/23 08:07> Radiology Impression Discussion of test interpretation with radiology: I have reviewed the radiologist's reading. <REVA Lozoya - Last Filed: 01/17/23 17:25> Radiologist Impression: EXAMINATION: XR CHEST CLINICAL INFORMATION: Cough COMPARISON: 12/05/2022. TECHNIQUE: 2 views of the chest were obtained. FINDINGS: No significant abnormality is noted involving the heart, lungs, mediastinum, bony thorax or soft tissues. XR/XR chest 2V IMPRESSION: Unremarkable examination. Dictated By: David Carvalho <REVA Lozoya - Last Filed: 01/17/23 17:25> External Record Review External record reviewed: Inpatient record, Office record, Outpatient record, Prior outpatient labs, Prior outpatient radiology, Primary care record and Outside ED record <REVA Lozoya - Last Filed: 01/17/23 17:25> Discharge Plan Discharge Clinical Impression: Gastritis, Hypoglycemia <REVA Lozoya - Last Filed: 01/17/23 17:25> Patient Disposition: Home, Self-Care <REVA Lozoya - Last Filed: 01/17/23 17:25> Instructions: Gastritis (ED), Non-diabetic Hypoglycemia (ED) <REVA Lozoya - Last Filed: 01/17/23 17:25> Additional Instructions: Your glucose today was normal - was 110 today. You need to follow-up with her primary care physician as they are the only people that can manage her symptoms better. You also having complaining about acid reflux, I prescribed medication. Please take medications as prescribed. If any new or worsening symptoms occur please return. <REVA Lozoya - Last Filed: 01/17/23 17:25> Prescriptions: New omeprazole 20 mg capsule,delayed release(DR/EC) 20 mg PO DAILY Qty: 30 0RF Rx Instructions: Take before meals in morning ondansetron 4 mg tablet,disintegrating 4 mg PO Q6-8H PRN (Reason: nausea and vomiting) Qty: 10 0RF cefuroxime axetil 250 mg tablet 250 mg PO BID 7 Days Qty: 14 0RF No Action lorazepam [Ativan] 0.5 mg tablet 0.5 mg PO BEDTIME PRN (Reason: anxiety) Qty: 14 0RF metoclopramide HCl [Reglan] 10 mg tablet 10 mg PO Q6H PRN (Reason: nausea and vomiting) Qty: 14 0RF cyclobenzaprine 5 mg tablet 5 mg PO TID PRN (Reason: muscle spasm) Qty: 10 0RF ibuprofen 600 mg tablet 600 mg PO Q6H PRN (Reason: pain) Qty: 30 0RF azithromycin [Zithromax Z-Trevor] 250 mg tablet 250 mg PO DAILY 5 Days Qty: 5 0RF erythromycin 5 mg/gram (0.5 %) ointment 0.5 inch ophthalmic (eye) TID Qty: 3.5 0RF clindamycin HCl 300 mg capsule 300 mg PO TID 10 Days Qty: 30 0RF ibuprofen 800 mg tablet 800 mg PO Q8H PRN (Reason: pain) Qty: 14 0RF oxycodone-acetaminophen [Percocet] 5-325 mg tablet 1 tab PO Q6H PRN (Reason: pain) Qty: 10 0RF ondansetron 4 mg tablet,disintegrating 4 mg PO Q6-8H PRN (Reason: nausea and vomiting) Qty: 7 0RF ciprofloxacin HCl 500 mg tablet 500 mg PO Q12H 5 Days Qty: 10 0RF cefpodoxime 100 mg tablet 100 mg PO BID Qty: 20 0RF Rx Instructions: must administer with a meal/food ondansetron 4 mg tablet,disintegrating 4 mg PO Q8H PRN (Reason: nausea and vomiting) Qty: 10 0RF clindamycin HCl 150 mg capsule 150 mg PO TID Qty: 20 0RF ibuprofen 400 mg tablet 400 mg PO Q8H PRN (Reason: pain) Qty: 30 0RF lorazepam [Ativan] 0.5 mg tablet 0.5 mg PO BID PRN (Reason: anxiety) Qty: 10 0RF ondansetron 4 mg tablet,disintegrating 4 mg PO Q6H PRN (Reason: nausea and vomiting) Qty: 7 0RF lorazepam [Ativan] 0.5 mg tablet 0.5 mg PO BID PRN (Reason: anxiety) Qty: 10 0RF lorazepam [Ativan] 1 mg tablet 1 mg PO BID PRN (Reason: anxiety/sleep) Qty: 14 0RF ibuprofen 600 mg tablet 600 mg PO Q8H PRN (Reason: pain) Qty: 30 0RF tramadol 50 mg tablet 50 mg PO Q8H PRN (Reason: pain) Qty: 8 0RF clindamycin HCl 300 mg capsule 300 mg PO Q8H 7 Days Qty: 21 0RF ciprofloxacin-dexamethasone [Ciprodex] 0.3-0.1 % drops,suspension 4 drp otic (ears) BID 7 Days Qty: 7.5 0RF ciprofloxacin HCl [Cipro] 500 mg tablet 500 mg PO BID Qty: 14 0RF famotidine [Pepcid] 20 mg tablet 20 mg PO BID 10 Days Qty: 20 0RF clindamycin HCl 300 mg capsule 300 mg PO QID 10 Days Qty: 40 0RF naproxen 500 mg tablet 500 mg PO BID PRN (Reason: pain) 7 Days Qty: 14 0RF azithromycin 250 mg tablet See Rx Instructions .ROUTE .COMPLEX Qty: 6 0RF Rx Instructions: For 250 mg dose pack: take 500 mg today (day 1), then 250 mg for 4 days (days 2-5) chlorhexidine gluconate 0.12 % mouthwash 15 ml buccal BID 7 Days Qty: 300 0RF pantoprazole [Protonix] 40 mg tablet,delayed release (DR/EC) 40 mg PO DAILY Qty: 14 0RF tramadol 50 mg tablet 50 mg PO Q8H PRN (Reason: pain) Qty: 8 0RF <REVA Lozoya - Last Filed: 01/17/23 17:25> Referrals: [facility] [Physician] - <REVA Lozoya - Last Filed: 01/17/23 17:25> Interventions: ED Discharge Assessment Last Done: 01/16/23 11:14 <REVA Lozoya - Last Filed: 01/17/23 17:25> Discharge Date/Time: 01/16/23 11:14 <REVA Lozoya - Last Filed: 01/17/23 17:25> Print Language: Beninese <REVA Lozoya - Last Filed: 01/17/23 17:25>
[2023-01-16 08:37] LABS: Appearance Urine Cloudy; Glucose Urine UA Negative (Negative); Leukocyte Esterase Urine Small (1+) (Negative); Nitrite Urine Negative (Negative); PH 6.5 (5.0-9.0); Specific Gravity - Urine 1.025 (1.005-1.025); UMIC TRIGGER UACC YES; Urine Blood Large (3+) (Negative); Urine Ketones Trace mg/dL (Negative); Urine Protein 300 (3+) mg/dL (Neg-Trace)
[2023-01-16 08:38] LABS: Color Urine Dark Yellow
[2023-01-16 09:04] LABS: Influenza A PCR NEGATIVE (Negative); Influenza B PCR NEGATIVE (Negative); Resp Syncy Virus RNA Qual PCR NEGATIVE (Negative); SARS COV2 PCR INHOUSE NEGATIVE (Negative)
[2023-01-16 09:05] LABS: Bacteria Urine Trace (None Seen); Hyaline Casts Urine 0-2 /LPF (0-2); RBC Urine >20 /HPF (0-2); Squamous Epithelial Cell Urine 0-2 /HPF (0-2); UACC Culture Trigger YES; WBC Urine 21-50 /HPF (0-5)
[2023-01-16] MEDS: Magnesium Hydrox/Alum Hydrox 30 ML ORAL.SUSP PO (10:11)
[2023-01-16] MEDS: Lidocaine HCl Viscous 2 % 15 ML SOLUTION MUCOUS MEM (10:12)
[2023-01-16] MEDS: PHENobarb/Hyoscy/Atropine/Scop 10 ML ELIXIR PO (10:12)
[2023-01-16 10:19] LABS: Glucose, Whole Blood 79 mg/dL (60-115)
[2023-01-16 11:03] VITALS: BP 129/76; PULSE 62; RESP 16; O2SAT 100
== END 2023-01-16 11:14 | disposition home or self-care (01) ==
PROVIDERS: Physician Assistant Medical; Emergency Provider Emergency Medicine
DX: K29.70 Gastritis, unspecified, without bleeding (principal); R05.9 Cough, unspecified; E16.2 Hypoglycemia, unspecified; Z20.822 Contact with and (suspected) exposure to COVID-19; Z20.828 Contact with and (suspected) exposure to other viral communicable diseases; Z79.899 Other long term (current) drug therapy
CPT/HCPCS: 0241U; 36415; 71046; 80053; 81001; 82947; 85025; 87086; 87147; 99283; 99284

== ENCOUNTER 2023-01-20 23:47 | Emergency (ER) | payer OTHER, SELFPAY ==
--- NOTE | ~2023-01-20 | CT_ITS ---
EXAMINATION: CT ABDOMEN AND PELVIS WITH CONTRAST CLINICAL INFORMATION: Lower abdominal pain COMPARISON: 05/25/2021 TECHNIQUE: Multidetector volumetric images were obtained from the superior aspect of the liver through the pubic symphysis following administration 85 mL of Omnipaque 350 intravenous contrast. Sagittal and coronal reformatted images were obtained on the technologist's workstation. Oral contrast: No This CT examination was performed using dose optimization techniques as appropriate, variously including the following: *Automated exposure control *Adjustment of mA and/or kV according to patient size (this includes techniques or standardized protocols for targeted exams where dose is matched to indication/reason for exam; i.e. extremities or head) *Use of iterative reconstruction technique DLP: 467 mGy-cm FINDINGS: LUNG BASES: The visualized lung bases are unremarkable. LIVER, GALLBLADDER, AND BILIARY TREE: The liver is normal in size, shape, and attenuation. A small subtle region of hypoattenuation adjacent to the falciform ligament could be due to focal fatty infiltration or alterations in hepatic perfusion. No biliary ductal dilatation is present. The gallbladder is unremarkable with no evidence of radiopaque gallstones, gallbladder wall thickening, or obvious pericholecystic inflammatory changes. PANCREAS: Unremarkable. SPLEEN: Unremarkable. ADRENAL GLANDS: Unremarkable. KIDNEYS AND URETERS: Bilateral nephrograms are symmetric. No hydronephrosis or obstructing calculus identified. BLADDER: Unremarkable. GASTROINTESTINAL TRACT: No evidence of bowel obstruction or significant wall thickening. The appendix is unremarkable. No free fluid or free air is seen. ABDOMINAL WALL: No significant hernia is appreciated. LYMPH NODES: Normal. VASCULAR: Unremarkable. PELVIC VISCERA: Unremarkable. OSSEOUS STRUCTURES: Unremarkable. CT/CT abdomen pelvis w IV con IMPRESSION: No acute findings identified in the abdomen/pelvis.
--- NOTE | ~2023-01-20 | US_ITS ---
EXAMINATION: US PELVIS CLINICAL INFORMATION: Pain, question torsion COMPARISON: CT from the same day TECHNIQUE: Ultrasound of the pelvis is performed using both transabdominal and transvaginal transducers along with Doppler. Transvaginal imaging is performed due to inadequate visualization transabdominally. FINDINGS: Uterus: The uterus is anteverted and measures 11.9 x 3.5 x 6.0 cm. Nabothian cyst noted in the cervix. The double wall endometrial thickness is 0.5 mm. The uterus is smooth in contour and has normal myometrial echogenicity. Adnexa: Both ovaries are visualized and appear unremarkable. Right ovary measures 4.0 x 2.6 x 2.4 cm. Left ovary measures 3.3 x 1.9 x 1.9 cm. Doppler evaluation demonstrates normal-appearing arterial and venous waveforms bilaterally. There is no pelvic ascites or fluid collection. US/US pelvic and transvaginal IMPRESSION: No acute findings identified.
--- NOTE | ~2023-01-20 | US_ITS ---
EXAMINATION: US PELVIS CLINICAL INFORMATION: Pain, question torsion COMPARISON: CT from the same day TECHNIQUE: Ultrasound of the pelvis is performed using both transabdominal and transvaginal transducers along with Doppler. Transvaginal imaging is performed due to inadequate visualization transabdominally. FINDINGS: Uterus: The uterus is anteverted and measures 11.9 x 3.5 x 6.0 cm. Nabothian cyst noted in the cervix. The double wall endometrial thickness is 0.5 mm. The uterus is smooth in contour and has normal myometrial echogenicity. Adnexa: Both ovaries are visualized and appear unremarkable. Right ovary measures 4.0 x 2.6 x 2.4 cm. Left ovary measures 3.3 x 1.9 x 1.9 cm. Doppler evaluation demonstrates normal-appearing arterial and venous waveforms bilaterally. There is no pelvic ascites or fluid collection. US/US pelvic ovarian doppler IMPRESSION: No acute findings identified.
[2023-01-20 23:55] VITALS: BP 149/101; PULSE 89; RESP 18; TEMP 36.6; O2SAT 98; BMI 29.9
[2023-01-21 00:50] LABS: MANUAL DIFF FLAG NO
[2023-01-21 00:51] LABS: Basophils Absolute Auto 0.1 X10*3/uL (0.0-0.2); Basophils Percent Auto 0.7 % (0-2); Eosinophils Absolute Auto 0.3 X10*3/uL (0.0-0.4); Eosinophils Percent Auto 3.1 % (0-4); Hematocrit 35.9 % (37.0-47.0); Hemoglobin 10.7 g/dl (12.0-16.0); Imm Gran Abs Auto 0.03 X10*3/uL (0.00-0.03); Imm Gran Pct Auto 0.3 % (0.0-0.4); Lymphocytes Absolute Auto 3.3 X10*3/uL (1.2-4.9); Lymphocytes Percent Auto 30.7 % (20-40); Mean Corpuscular HGB Conc 29.8 g/dl (31.0-35.0); Mean Corpuscular Hemoglobin 20.9 pg (27.0-33.0); Mean Platelet Volume 10.6 fL (9.4-12.3); Monocytes Absolute Auto 0.6 X10*3/uL (0.1-1.2); Monocytes Percent Auto 5.7 % (2-11); Neutrophils Absolute Auto 6.4 x10*3/uL (2.0-8.3); Neutrophils Percent Auto 59.5 % (45-73); Platelet Count 320 X10*3/uL (160-400); Red Blood Count 5.13 X10*6/uL (4.20-5.50); Red Cell Distribution Width 15.4 % (11.0-16.0); White Blood Count 10.8 X10*3/uL (4.8-10.8)
[2023-01-21 00:57] LABS: Appearance Urine Clear; Color Urine Yellow; Glucose Urine UA Negative (Negative); Leukocyte Esterase Urine Trace (Negative); Nitrite Urine Negative (Negative); PH 6.5 (5.0-9.0); UMIC TRIGGER UACC YES; Urine Blood Negative (Negative); Urine Ketones Negative (Negative); Urine Protein Negative (Neg-Trace)
[2023-01-21 00:59] LABS: UPreg QC Valid YES; Urine Pregnancy NEGATIVE (NEGATIVE)
[2023-01-21 01:02] LABS: Bacteria Urine None Seen (None Seen); Hyaline Casts Urine 0-2 /LPF (0-2); RBC Urine 0-2 /HPF (0-2); Squamous Epithelial Cell Urine 0-2 /HPF (0-2); WBC Urine 0-5 /HPF (0-5)
[2023-01-21 01:12] LABS: Alanine Aminotransferase 11 U/L (0-31); Albumin Level 4.8 g/dL (3.5-5.0); Alkaline Phosphatase 79 U/L (39-117); Anion Gap 12 (12-20); Aspartate Amino Transferase 14 U/L (5-31); Bilirubin Direct 0.1 mg/dL (0.0-0.5); Bilirubin Total 0.3 mg/dL (0.0-1.0); Blood Urea Nitrogen 9 mg/dL (9-16); Calcium 9.9 mg/dL (8.4-10.2); Carbon Dioxide 28 mmol/L (22-29); Chloride 104 mmol/L (96-108); Creatinine Clr Calc Pharmacy 76.6; Estimated Glomerular Filt Rate > 60; Glucose Random 93 mg/dL (60-115); Lipase 30 U/L (8-78); Potassium 4.2 mmol/L (3.3-5.1); Sodium 140 mmol/L (135-145); Total Protein 8.1 g/dL (6.5-8.0)
[2023-01-21 01:24] VITALS: BP 139/91; PULSE 76; RESP 16; TEMP 36.7; O2SAT 98
--- NOTE | 2023-01-21 02:06 | ED_ITS ---
HPI - Abdominal Pain General Chief Complaint: Abdominal Pain Stated Complaint: Lower adbominal pain Time Seen by Provider: 01/21/23 01:20 History of Present Illness HPI narrative: Patient is a 27-year-old female presents today with having abdominal pain. It is over the lower abdomen. Not associated with fever chills. No pain on urination. No diaphoresis. No flank pain. No vaginal discharge. Patient does not think she is . Her menstruation has been normal. History of C- section approximately 4 years ago. No coughing or congestion or respiratory symptoms. No diaphoresis. Related Data Previous Rx's Medication Instructions Recorded azithromycin 250 mg tablet 250 mg PO DAILY 5 days #5 tabs 06/14/20 (Zithromax Z-Trevor) clindamycin HCl 300 mg capsule 300 mg PO TID Periorbital 08/15/20 cellulitis 10 days #30 caps erythromycin 5 mg/gram (0.5 %) eye 0.5 inch ophthalmic (eye) TID #3.5 08/15/20 ointment grams ibuprofen 800 mg tablet 800 mg PO Q8H PRN pain #14 tabs 08/15/20 oxycodone-acetaminophen 5 mg-325 1 tab PO Q6H PRN pain #10 tabs 08/15/20 mg tablet (Percocet) lorazepam 0.5 mg tablet (Ativan) 0.5 mg PO BEDTIME PRN anxiety #14 10/31/20 tabs metoclopramide HCl 10 mg tablet 10 mg PO Q6H PRN nausea and 02/22/21 (Reglan) vomiting #14 tabs cyclobenzaprine 5 mg tablet 5 mg PO TID PRN muscle spasm #10 05/10/21 tabs ibuprofen 600 mg tablet 600 mg PO Q6H PRN pain #30 tabs 05/10/21 lorazepam 1 mg tablet (Ativan) 1 mg PO BID PRN anxiety/sleep #14 07/02/21 tabs ondansetron 4 mg disintegrating 4 mg PO Q6-8H PRN nausea and 07/16/21 tablet vomiting #7 tabs ciprofloxacin HCl 500 mg tablet 500 mg PO Q12H 5 days #10 tabs 10/05/21 cefpodoxime 100 mg tablet 100 mg PO BID #20 tabs 10/08/21 clindamycin HCl 300 mg capsule 300 mg PO Q8H 7 days #21 caps 10/22/21 ibuprofen 600 mg tablet 600 mg PO Q8H PRN pain #30 tabs 10/22/21 tramadol 50 mg tablet 50 mg PO Q8H PRN pain #8 tabs 10/22/21 ondansetron 4 mg disintegrating 4 mg PO Q8H PRN nausea and 01/26/22 tablet vomiting #10 tabs ciprofloxacin 0.3 %-dexamethasone 4 drp otic (ears) BID 7 days #7.5 05/06/22 0.1 % ear drops,suspension mL (Ciprodex) ciprofloxacin HCl 500 mg tablet 500 mg PO BID #14 tabs 05/06/22 (Cipro) clindamycin HCl 150 mg capsule 150 mg PO TID #20 caps 06/13/22 ibuprofen 400 mg tablet 400 mg PO Q8H PRN pain #30 tabs 06/13/22 famotidine 20 mg tablet (Pepcid) 20 mg PO BID 10 days #20 tabs 07/31/22 lorazepam 0.5 mg tablet (Ativan) 0.5 mg PO BID PRN anxiety #10 tabs 09/21/22 lorazepam 0.5 mg tablet (Ativan) 0.5 mg PO BID PRN anxiety #10 tabs 09/21/22 ondansetron 4 mg disintegrating 4 mg PO Q6H PRN nausea and 09/21/22 tablet vomiting #7 tabs pantoprazole 40 mg tablet,delayed 40 mg PO DAILY #14 tabs 12/05/22 release (Protonix) clindamycin HCl 300 mg capsule 300 mg PO QID 10 days #40 caps 12/19/22 naproxen 500 mg tablet 500 mg PO BID PRN pain 7 days #14 12/19/22 tabs tramadol 50 mg tablet 50 mg PO Q8H PRN pain #8 tabs 12/28/22 azithromycin 250 mg tablet See Rx Instructions PO .COMPLEX #6 12/30/22 tabs chlorhexidine gluconate 0.12 % 15 ml buccal BID 7 days #300 mL 12/30/22 mouthwash omeprazole 20 mg capsule,delayed 20 mg PO DAILY #30 caps 01/16/23 release ondansetron 4 mg disintegrating 4 mg PO Q6-8H PRN nausea and 01/16/23 tablet vomiting #10 tabs cefuroxime axetil 250 mg tablet 250 mg PO BID 7 days #14 tabs 01/19/23 Allergies Allergy/AdvReac Type Severity Reaction Status Date / Time amoxicillin [AMOXICILLIN] Allergy Unknown UNKNOWN Verified 01/21/23 00:02 clavulanic acid Allergy Unknown Unknown Verified 01/21/23 00:02 [From Augmentin] cyclobenzaprine Allergy Palpitation Verified 01/21/23 00:02 [From Flexeril] s escitalopram Allergy Palpitation Verified 01/21/23 00:02 s Review of Systems Review of Systems Positive abdominal pain in the low abdomen Yes all other systems are reviewed and are negative [facility] Past Medical History Attestation statement: The following information was validated with the patient. Medical History Anemia Anxiety HTN (hypertension) Surgical History H/O: Social History Social History Alcohol intake: never Patient Tobacco Use Status: Never used Tobacco Smoked in Last 30 Days: No Use of substances other than those prescribed or required for medical reasons: No Advance Directives: No Advance Directives Information Provided: No Physical Exam ED Vital Signs: Vital Signs - 24 hr 01/20/23 23:55 01/21/23 01:24 01/21/23 03:18 Temperature 97.8 F 98.1 F 98.0 F Pulse Rate 89 76 84 Respiratory Rate 18 16 17 Blood Pressure 149/101 H 139/91 H 159/84 H Pulse Oximetry 98 98 100 Oxygen Delivery Method Room Air Room Air Room Air BMI result Body Mass Index 29.9 Appearance: Alert. Oriented X3. No acute distress. Eyes: Pupils equal, round and reactive to light. ENT: Pharynx normal. Neck: Normal inspection. Neck supple. No lymph nodes noted. No crepitus CVS: Normal heart rate and rhythm. Pulses normal. Normal S1 and S2 Respiratory: No respiratory distress. Breath sounds normal. No Wheezing. No rales Abdomen: Soft and nontender. No rigidity. No distention. good BS x4 Skin: Skin warm and dry. Normal skin color. Normal skin turgor. Extremities: No lower extremity edema. Neurovascular intact to all extremities. No Lacerations. No Rash Neuro: Oriented X 3. No motor deficit. No sensory deficit. Moving all extermities. No slurred speech Medical Decision Making Medical Decision Making [facility] Narrative: CT scan of the abdomen pelvis showed no evidence of obstruction, abscess, perforation. Ultrasound of the lower abdomen showed no evidence of torsion. Repeat abdominal exam is soft nontender. Urine showed no signs of infection. Differential Diagnosis Differential Diagnoses: The differential diagnosis associated with the presentation includes Appendicitis, kidney stone, diverticulitis, ovarian torsion, UTI Lab Data [facility] Lab Attestation statement: I reviewed the patient's lab results. 01/21/23 00:46 01/21/23 00:46 Labs: Lab Results 01/21/23 01/21/23 01/21/23 Range/Units 00:46 00:46 00:46 WBC 10.8 (4.8-10.8) X10*3/uL RBC 5.13 (4.20-5.50) X10*6/uL Hgb 10.7 L (12.0-16.0) g/dl Hct 35.9 L (37.0-47.0) % MCV 70.0 L (80.0-98.0) fL MCH 20.9 L (27.0-33.0) pg MCHC 29.8 L (31.0-35.0) g/dl RDW 15.4 (11.0-16.0) % Plt Count 320 (160-400) X10*3/uL MPV 10.6 (9.4-12.3) fL Immature Gran % (Auto) 0.3 (0.0-0.4) % Neut % (Auto) 59.5 (45-73) % Lymph % (Auto) 30.7 (20-40) % [place] % (Auto) 5.7 (2-11) % Eos % (Auto) 3.1 (0-4) % Baso % (Auto) 0.7 (0-2) % Lymph # (Auto) 3.3 (1.2-4.9) X10*3/uL [place] # (Auto) 0.6 (0.1-1.2) X10*3/uL Eos # (Auto) 0.3 (0.0-0.4) X10*3/uL Baso # (Auto) 0.1 (0.0-0.2) X10*3/uL Abs Immat Gran (auto) 0.03 (0.00-0.03) X10*3/uL Absolute Neuts (auto) 6.4 (2.0-8.3) x10*3/uL Absolute Nucleated RBC 0.000 (0.0-0.012) X10*3/uL Nucleated RBC % (auto) 0.0 (0.0-0.2) /100WBC Sodium 140 (135-145) mmol/L Potassium 4.2 (3.3-5.1) mmol/L Chloride 104 (96-108) mmol/L Carbon Dioxide 28 (22-29) mmol/L Anion Gap 12 (12-20) BUN 9 (9-16) mg/dL Creatinine 0.95 (0.5-1.4) mg/dL Estim Creat Clear Calc 76.6 Estimated GFR > 60 Random Glucose 93 (60-115) mg/dL Calcium 9.9 D (8.4-10.2) mg/dL Total Bilirubin 0.3 (0.0-1.0) mg/dL Direct Bilirubin 0.1 (0.0-0.5) mg/dL AST 14 (5-31) U/L ALT 11 (0-31) U/L Alkaline Phosphatase 79 (39-117) U/L Total Protein 8.1 H (6.5-8.0) g/dL Albumin 4.8 (3.5-5.0) g/dL Lipase 30 (8-78) U/L Urine Color Yellow Urine Appearance Clear Urine pH 6.5 (5.0-9.0) Ur Specific [place] 1.010 (1.005-1.025) Urine Protein Negative (Neg-Trace) mg/dL Urine Glucose (UA) Negative (Negative) mg/dL Urine Ketones Negative (Negative) mg/dL Urine Blood Negative (Negative) Urine Nitrite Negative (Negative) Ur Leukocyte Esterase Trace H (Negative) Urine RBC 0-2 (0-2) /HPF Urine WBC 0-5 (0-5) /HPF Ur Squamous Epith Cells 0-2 (0-2) /HPF Urine Bacteria None Seen (None Seen) Hyaline Casts 0-2 (0-2) /LPF Urine Test (NEGATIVE) 01/21/23 Range/Units 00:46 WBC (4.8-10.8) X10*3/uL RBC (4.20-5.50) X10*6/uL Hgb (12.0-16.0) g/dl Hct (37.0-47.0) % MCV (80.0-98.0) fL MCH (27.0-33.0) pg MCHC (31.0-35.0) g/dl RDW (11.0-16.0) % Plt Count (160-400) X10*3/uL MPV (9.4-12.3) fL Immature Gran % (Auto) (0.0-0.4) % Neut % (Auto) (45-73) % Lymph % (Auto) (20-40) % [place] % (Auto) (2-11) % Eos % (Auto) (0-4) % Baso % (Auto) (0-2) % Lymph # (Auto) (1.2-4.9) X10*3/uL [place] # (Auto) (0.1-1.2) X10*3/uL Eos # (Auto) (0.0-0.4) X10*3/uL Baso # (Auto) (0.0-0.2) X10*3/uL Abs Immat Gran (auto) (0.00-0.03) X10*3/uL Absolute Neuts (auto) (2.0-8.3) x10*3/uL Absolute Nucleated RBC (0.0-0.012) X10*3/uL Nucleated RBC % (auto) (0.0-0.2) /100WBC Sodium (135-145) mmol/L Potassium (3.3-5.1) mmol/L Chloride (96-108) mmol/L Carbon Dioxide (22-29) mmol/L Anion Gap (12-20) BUN (9-16) mg/dL Creatinine (0.5-1.4) mg/dL Estim Creat Clear Calc Estimated GFR Random Glucose (60-115) mg/dL Calcium (8.4-10.2) mg/dL Total Bilirubin (0.0-1.0) mg/dL Direct Bilirubin (0.0-0.5) mg/dL AST (5-31) U/L ALT (0-31) U/L Alkaline Phosphatase (39-117) U/L Total Protein (6.5-8.0) g/dL Albumin (3.5-5.0) g/dL Lipase (8-78) U/L Urine Color Urine Appearance Urine pH (5.0-9.0) Ur Specific [place] (1.005-1.025) Urine Protein (Neg-Trace) mg/dL Urine Glucose (UA) (Negative) mg/dL Urine Ketones (Negative) mg/dL Urine Blood (Negative) Urine Nitrite (Negative) Ur Leukocyte Esterase (Negative) Urine RBC (0-2) /HPF Urine WBC (0-5) /HPF Ur Squamous Epith Cells (0-2) /HPF Urine Bacteria (None Seen) Hyaline Casts (0-2) /LPF Urine Test NEGATIVE (NEGATIVE) Prescription Management I considered prescription management with: Pain Medication Medications Administered Discontinued Medications Generic Name Dose Route Start Last Admin Trade Name Freq PRN Reason Stop Dose Admin Sodium Chloride 1,000 mls @ 999 mls/hr 01/21/23 02:15 01/21/23 03:36 Ns IV 01/21/23 03:15 Infused .Q1H1M HENRY Infusion Iohexol 85 ml 01/21/23 02:29 01/21/23 02:30 Iohexol 350 Mg/Ml 100 Ml Infus..Btl IV 01/21/23 02:30 85 ml ONCE ONE Administration Ketorolac Tromethamine 30 mg 01/21/23 02:04 01/21/23 02:32 Ketorolac Tromethamine 30 Mg/Ml Vial IVPUSH 01/21/23 02:05 30 mg ONCE ONE Administration Discharge Plan Discharge Clinical Impression: Abdominal pain Patient Disposition: Home, Self-Care Instructions: Abdominal Pain (ED) Prescriptions: No Action lorazepam [Ativan] 0.5 mg tablet 0.5 mg PO BEDTIME PRN (Reason: anxiety) Qty: 14 0RF metoclopramide HCl [Reglan] 10 mg tablet 10 mg PO Q6H PRN (Reason: nausea and vomiting) Qty: 14 0RF cyclobenzaprine 5 mg tablet 5 mg PO TID PRN (Reason: muscle spasm) Qty: 10 0RF ibuprofen 600 mg tablet 600 mg PO Q6H PRN (Reason: pain) Qty: 30 0RF azithromycin [Zithromax Z-Trevor] 250 mg tablet 250 mg PO DAILY 5 Days Qty: 5 0RF erythromycin 5 mg/gram (0.5 %) ointment 0.5 inch ophthalmic (eye) TID Qty: 3.5 0RF clindamycin HCl 300 mg capsule 300 mg PO TID 10 Days Qty: 30 0RF ibuprofen 800 mg tablet 800 mg PO Q8H PRN (Reason: pain) Qty: 14 0RF oxycodone-acetaminophen [Percocet] 5-325 mg tablet 1 tab PO Q6H PRN (Reason: pain) Qty: 10 0RF ondansetron 4 mg tablet,disintegrating 4 mg PO Q6-8H PRN (Reason: nausea and vomiting) Qty: 7 0RF ciprofloxacin HCl 500 mg tablet 500 mg PO Q12H 5 Days Qty: 10 0RF cefpodoxime 100 mg tablet 100 mg PO BID Qty: 20 0RF Rx Instructions: must administer with a meal/food ondansetron 4 mg tablet,disintegrating 4 mg PO Q8H PRN (Reason: nausea and vomiting) Qty: 10 0RF clindamycin HCl 150 mg capsule 150 mg PO TID Qty: 20 0RF ibuprofen 400 mg tablet 400 mg PO Q8H PRN (Reason: pain) Qty: 30 0RF lorazepam [Ativan] 0.5 mg tablet 0.5 mg PO BID PRN (Reason: anxiety) Qty: 10 0RF ondansetron 4 mg tablet,disintegrating 4 mg PO Q6H PRN (Reason: nausea and vomiting) Qty: 7 0RF lorazepam [Ativan] 0.5 mg tablet 0.5 mg PO BID PRN (Reason: anxiety) Qty: 10 0RF lorazepam [Ativan] 1 mg tablet 1 mg PO BID PRN (Reason: anxiety/sleep) Qty: 14 0RF ibuprofen 600 mg tablet 600 mg PO Q8H PRN (Reason: pain) Qty: 30 0RF tramadol 50 mg tablet 50 mg PO Q8H PRN (Reason: pain) Qty: 8 0RF clindamycin HCl 300 mg capsule 300 mg PO Q8H 7 Days Qty: 21 0RF ciprofloxacin-dexamethasone [Ciprodex] 0.3-0.1 % drops,suspension 4 drp otic (ears) BID 7 Days Qty: 7.5 0RF ciprofloxacin HCl [Cipro] 500 mg tablet 500 mg PO BID Qty: 14 0RF famotidine [Pepcid] 20 mg tablet 20 mg PO BID 10 Days Qty: 20 0RF clindamycin HCl 300 mg capsule 300 mg PO QID 10 Days Qty: 40 0RF naproxen 500 mg tablet 500 mg PO BID PRN (Reason: pain) 7 Days Qty: 14 0RF azithromycin 250 mg tablet See Rx Instructions .ROUTE .COMPLEX Qty: 6 0RF Rx Instructions: For 250 mg dose pack: take 500 mg today (day 1), then 250 mg for 4 days (days 2-5) chlorhexidine gluconate 0.12 % mouthwash 15 ml buccal BID 7 Days Qty: 300 0RF pantoprazole [Protonix] 40 mg tablet,delayed release (DR/EC) 40 mg PO DAILY Qty: 14 0RF tramadol 50 mg tablet 50 mg PO Q8H PRN (Reason: pain) Qty: 8 0RF omeprazole 20 mg capsule,delayed release(DR/EC) 20 mg PO DAILY Qty: 30 0RF Rx Instructions: Take before meals in morning ondansetron 4 mg tablet,disintegrating 4 mg PO Q6-8H PRN (Reason: nausea and vomiting) Qty: 10 0RF cefuroxime axetil 250 mg tablet 250 mg PO BID 7 Days Qty: 14 0RF Print Language: Arabic
[2023-01-21] MEDS: iohexoL 350 MG/ML 100 ML INFUS..BTL 85 ML IV (02:30)
[2023-01-21] MEDS: Ketorolac Tromethamine 30 MG/ML VIAL IVPUSH (02:32)
[2023-01-21] MEDS: 0.9 % Sodium Chloride 1,000 ML 999 ML IV (02:32)
[2023-01-21 03:18] VITALS: BP 159/84; PULSE 84; RESP 17; TEMP 36.7; O2SAT 100
== END 2023-01-21 04:33 | disposition home or self-care (01) ==
PROVIDERS: Emergency Provider Emergency Medicine Emergency Medical Services
DX: R10.30 Lower abdominal pain, unspecified (principal); I10 Essential (primary) hypertension; Z79.899 Other long term (current) drug therapy
CPT/HCPCS: 36415; 74177; 76830; 76856; 80048; 80076; 81001; 81003; 81025; 83690; 85025; 93975; 96361; 96374; 99284; 99285; J1885; Q9967

== ENCOUNTER 2023-01-31 14:54 | Emergency (ER) | payer OTHER, SELFPAY ==
--- NOTE | ~2023-01-31 | CT_ITS ---
EXAMINATION: CT ABDOMEN AND PELVIS WITH CONTRAST CLINICAL INFORMATION: Bilateral lower quadrant pain. COMPARISON: CT abdomen/pelvis 01/21/2023. Pelvic ultrasound 01/21/2023. TECHNIQUE: Multidetector volumetric images were obtained from the superior aspect of the liver through the pubic symphysis following administration 85 mL of Omnipaque 350 intravenous contrast. Sagittal and coronal reformatted images were obtained on the technologist's workstation. Oral contrast: No This CT examination was performed using dose optimization techniques as appropriate, variously including the following: *Automated exposure control *Adjustment of mA and/or kV according to patient size (this includes techniques or standardized protocols for targeted exams where dose is matched to indication/reason for exam; i.e. extremities or head) *Use of iterative reconstruction technique DLP: 426 mGy-cm FINDINGS: LUNG BASES: No focal consolidation or pleural effusion. LIVER, GALLBLADDER, AND BILIARY TREE: The liver is normal in size, shape, and attenuation. No focal hepatic lesion or biliary ductal dilatation is present. The gallbladder is unremarkable with no evidence of radiopaque gallstones, gallbladder wall thickening, or obvious pericholecystic inflammatory changes. PANCREAS: Unremarkable. SPLEEN: Unremarkable. ADRENAL GLANDS: Unremarkable. KIDNEYS AND URETERS: The kidneys are normal in size, shape, and attenuation. No hydronephrosis, hydroureter, or calculi seen. No perinephric stranding. BLADDER: Unremarkable. GASTROINTESTINAL TRACT: The stomach and the small bowel are nondilated. Normal appendix. No pericolonic inflammatory changes. No bowel obstruction. Moderate to large amount of stool in the rectum. ABDOMINAL WALL: No significant hernia is appreciated. LYMPH NODES: No lymphadenopathy by CT short axis size criteria. VASCULAR: Unremarkable. PELVIC VISCERA: Ovaries are symmetric in size. Dominant follicle in the left ovary. OSSEOUS STRUCTURES: Unremarkable. CT/CT abdomen pelvis w IV con IMPRESSION: 1. No acute intra-abdominal or pelvic abnormalities to explain the patient's symptoms. 2. Moderate to large amount of stool in the rectum suggesting constipation.
[2023-01-31 15:03] VITALS: BP 142/70; PULSE 119; RESP 30; TEMP 37.6; O2SAT 100; BMI 29.3
[2023-01-31 15:44] LABS: MANUAL DIFF FLAG NO
[2023-01-31 15:45] LABS: Basophils Absolute Auto 0.1 X10*3/uL (0.0-0.2); Basophils Percent Auto 0.4 % (0-2); Eosinophils Absolute Auto 0.1 X10*3/uL (0.0-0.4); Eosinophils Percent Auto 0.3 % (0-4); Hematocrit 36.2 % (37.0-47.0); Hemoglobin 11.4 g/dl (12.0-16.0); Imm Gran Abs Auto 0.06 X10*3/uL (0.00-0.03); Imm Gran Pct Auto 0.3 % (0.0-0.4); Lymphocytes Absolute Auto 1.2 X10*3/uL (1.2-4.9); Lymphocytes Percent Auto 7.2 % (20-40); Mean Corpuscular HGB Conc 31.5 g/dl (31.0-35.0); Mean Corpuscular Hemoglobin 21.6 pg (27.0-33.0); Mean Corpuscular Volume 68.6 fL (80.0-98.0); Mean Platelet Volume 11.4 fL (9.4-12.3); Monocytes Absolute Auto 0.8 X10*3/uL (0.1-1.2); Monocytes Percent Auto 4.4 % (2-11); Neutrophils Percent Auto 87.4 % (45-73); Platelet Count 289 X10*3/uL (160-400); Red Blood Count 5.28 X10*6/uL (4.20-5.50); Red Cell Distribution Width 15.2 % (11.0-16.0); White Blood Count 17.2 X10*3/uL (4.8-10.8)
[2023-01-31 16:02] LABS: Anion Gap 13 (12-20); Blood Urea Nitrogen 12 mg/dL (9-16); Calcium 10.1 mg/dL (8.4-10.2); Carbon Dioxide 26 mmol/L (22-29); Chloride 101 mmol/L (96-108); Creatinine Clr Calc Pharmacy 80.1; Estimated Glomerular Filt Rate > 60; Glucose Random 95 mg/dL (60-115); Sodium 137 mmol/L (135-145)
[2023-01-31 16:52] LABS: UPreg QC Valid YES
[2023-01-31 16:54] LABS: Appearance Urine Clear; Color Urine Yellow; Glucose Urine UA Negative (Negative); Leukocyte Esterase Urine Trace (Negative); Nitrite Urine Negative (Negative); PH >= 9.0 (5.0-9.0); Specific Gravity - Urine 1.015 (1.005-1.025); UMIC TRIGGER UACC YES; Urine Blood Negative (Negative); Urine Ketones Trace mg/dL (Negative); Urine Pregnancy NEGATIVE (NEGATIVE); Urine Protein Trace mg/dL (Neg-Trace)
[2023-01-31 16:56] LABS: Bacteria Urine Trace (None Seen); Hyaline Casts Urine 0-2 /LPF (0-2); RBC Urine 0-2 /HPF (0-2); WBC Urine 0-5 /HPF (0-5)
[2023-01-31 18:35] VITALS: BP 132/76; PULSE 107; RESP 14; TEMP 37.9; O2SAT 98
--- NOTE | 2023-01-31 18:36 | ED_ITS ---
HPI - Abdominal Pain General Chief Complaint: Abdominal Pain Stated Complaint: Seizure? Time Seen by Provider: 01/31/23 18:01 Source: patient Mode of arrival: ambulatory Limitations: no limitations History of Present Illness HPI narrative: Patient comes to the emergency room complaining of bilateral lower quadrant pain. Patient states it has been for about 5 days since she has been having dysuria, subjective fever, chills. Patient was seen here for abdominal pain approximately 10 days ago, CT scan and abdominal ultrasound were negative. Related Data Previous Rx's Medication Instructions Recorded azithromycin 250 mg tablet 250 mg PO DAILY 5 days #5 tabs 06/14/20 (Zithromax Z-Trevor) clindamycin HCl 300 mg capsule 300 mg PO TID Periorbital 08/15/20 cellulitis 10 days #30 caps erythromycin 5 mg/gram (0.5 %) eye 0.5 inch ophthalmic (eye) TID #3.5 08/15/20 ointment grams ibuprofen 800 mg tablet 800 mg PO Q8H PRN pain #14 tabs 08/15/20 oxycodone-acetaminophen 5 mg-325 1 tab PO Q6H PRN pain #10 tabs 08/15/20 mg tablet (Percocet) lorazepam 0.5 mg tablet (Ativan) 0.5 mg PO BEDTIME PRN anxiety #14 10/31/20 tabs metoclopramide HCl 10 mg tablet 10 mg PO Q6H PRN nausea and 02/22/21 (Reglan) vomiting #14 tabs cyclobenzaprine 5 mg tablet 5 mg PO TID PRN muscle spasm #10 05/10/21 tabs ibuprofen 600 mg tablet 600 mg PO Q6H PRN pain #30 tabs 05/10/21 lorazepam 1 mg tablet (Ativan) 1 mg PO BID PRN anxiety/sleep #14 07/02/21 tabs ondansetron 4 mg disintegrating 4 mg PO Q6-8H PRN nausea and 07/16/21 tablet vomiting #7 tabs ciprofloxacin HCl 500 mg tablet 500 mg PO Q12H 5 days #10 tabs 10/05/21 cefpodoxime 100 mg tablet 100 mg PO BID #20 tabs 10/08/21 clindamycin HCl 300 mg capsule 300 mg PO Q8H 7 days #21 caps 10/22/21 ibuprofen 600 mg tablet 600 mg PO Q8H PRN pain #30 tabs 02/11/22 tramadol 50 mg tablet 50 mg PO Q8H PRN pain #8 tabs 10/22/21 ondansetron 4 mg disintegrating 4 mg PO Q8H PRN nausea and 01/26/22 tablet vomiting #10 tabs ciprofloxacin 0.3 %-dexamethasone 4 drp otic (ears) BID 7 days #7.5 05/06/22 0.1 % ear drops,suspension mL (Ciprodex) ciprofloxacin HCl 500 mg tablet 500 mg PO BID #14 tabs 05/06/22 (Cipro) clindamycin HCl 150 mg capsule 150 mg PO TID #20 caps 06/13/22 ibuprofen 400 mg tablet 400 mg PO Q8H PRN pain #30 tabs 06/13/22 famotidine 20 mg tablet (Pepcid) 20 mg PO BID 10 days #20 tabs 07/31/22 lorazepam 0.5 mg tablet (Ativan) 0.5 mg PO BID PRN anxiety #10 tabs 09/21/22 lorazepam 0.5 mg tablet (Ativan) 0.5 mg PO BID PRN anxiety #10 tabs 09/21/22 ondansetron 4 mg disintegrating 4 mg PO Q6H PRN nausea and 09/21/22 tablet vomiting #7 tabs pantoprazole 40 mg tablet,delayed 40 mg PO DAILY #14 tabs 12/05/22 release (Protonix) clindamycin HCl 300 mg capsule 300 mg PO QID 10 days #40 caps 12/19/22 naproxen 500 mg tablet 500 mg PO BID PRN pain 7 days #14 12/19/22 tabs tramadol 50 mg tablet 50 mg PO Q8H PRN pain #8 tabs 12/28/22 azithromycin 250 mg tablet See Rx Instructions PO .COMPLEX #6 12/30/22 tabs chlorhexidine gluconate 0.12 % 15 ml buccal BID 7 days #300 mL 12/30/22 mouthwash omeprazole 20 mg capsule,delayed 20 mg PO DAILY #30 caps 01/16/23 release ondansetron 4 mg disintegrating 4 mg PO Q6-8H PRN nausea and 01/16/23 tablet vomiting #10 tabs cefuroxime axetil 250 mg tablet 250 mg PO BID 7 days #14 tabs 01/19/23 Allergies Allergy/AdvReac Type Severity Reaction Status Date / Time amoxicillin [AMOXICILLIN] Allergy Unknown UNKNOWN Verified 01/21/23 00:02 clavulanic acid Allergy Unknown Unknown Verified 01/21/23 00:02 [From Augmentin] cyclobenzaprine Allergy Palpitation Verified 01/21/23 00:02 [From Flexeril] s escitalopram Allergy Palpitation Verified 01/21/23 00:02 s Review of Systems Review of Systems Constitutional : No Weight loss, No Fever, blunting of Chills, No Night Sweats, No Fatigue, No Malaise ENT/Mouth : No Hearing loss, No Ear Pain, No Nasal Congestion, No Sinus Pain, No Hoarseness, No sore throat, No Rhinorrhea, No Swallowing Difficulty Eyes: No Eye Pain, No Swelling, No Redness, No Foreign Body, No Discharge, No Vision Changes Cardiovascular : No Chest Pain, No SOB, No Dyspnea on Exertion, No Orthopnea, No Edema, No Palpitations Respiratory : No Cough, No Sputum, No Wheezing, No Smoke Exposure, No Dyspnea Gastrointestinal : No Nausea, No Vomiting, No Diarrhea, No Constipation, complaining of bilateral lower quadrant pain, No Hematochezia, No Melena Genitourinary : no irregular bleeding, No Dysuria, No Urinary Frequency, No Hematuria, No Urinary Incontinence, No Urgency, No Flank Pain, No Urinary Flow Changes, No Hesitancy Musculoskeletal : No joint pain, No Myalgias, No Joint Swelling Skin : No Skin Lesions, No rash Neuro : No Weakness, No Numbness, No Paresthesias, No Loss of Consciousness, No Dizziness, No Headache Psych : No Anxiety/Panic, No Depression, No SI/HI/AH/VH, No Social Issues, Heme/Lymph: No Bruising, No Bleeding,No Lymphadenopathy Endocrine : No Polyuria, No Polydipsia, No Temperature Intolerance PMFSH Past Medical History Medical History Anemia Anxiety HTN (hypertension) Surgical History H/O: Social History Social History Alcohol intake: never Patient Tobacco Use Status: Never used Tobacco Smoked in Last 30 Days: No Use of substances other than those prescribed or required for medical reasons: No Advance Directives: No Advance Directives Information Provided: Yes Physical Exam ED Vital Signs: Vital Signs - 24 hr 01/31/23 15:03 01/31/23 18:35 01/31/23 20:27 Temperature 99.6 F 100.2 F 98.9 F Pulse Rate 119 H 107 H 96 Respiratory Rate 30 H 14 16 Blood Pressure 142/70 H 132/76 122/66 Pulse Oximetry 100 98 97 Oxygen Delivery Method Room Air Room Air Room Air BMI result Body Mass Index 29.3 Const Other: Appearance: Alert. Oriented X3. Very anxious, hyperventilating Eyes: Pupils equal, round and reactive to light. ENT: Pharynx normal. Neck: Normal inspection. Neck supple. No lymph nodes noted. No crepitus CVS: Normal heart rate and rhythm. Pulses normal. Normal S1 and S2 Respiratory: No respiratory distress. Breath sounds normal. No Wheezing. No rales Abdomen: Soft and nontender. No rigidity. No distention. Positive CVA tenderness on the left Skin: Skin warm and dry. Normal skin color. Normal skin turgor. Extremities: No lower extremity edema. No Lacerations. No Rash Neuro: Oriented X 3. No motor deficit. No sensory deficit. Moving all extremities. No slurred speech. CN 2 through 12 grossly intact Psych: calm, cooperative, very anxious Medical Decision Making Medical Decision Making MDM Narrative: -patient's white blood cell count is elevated at 17.2 which is more elevated than her previous visit. Patient's urinalysis is slightly positive -we will repeat CT scan of the abdomen pelvis. -patient received IV fluids, IV potassium which can be switched to p.o. potassium once we have the CT scan results back. -22:00: The results of the CT scans are not back yet. Patient receiving 1 dose of ceftriaxone empirically, patient has dysuria, a very mild UTI. Possible pyelonephritis? -I discussed the patient with Dr. Herman, patient's CT scan pending Lab Data 01/31/23 15:37 01/31/23 15:37 Labs: Lab Results 01/31/23 01/31/23 01/31/23 Range/Units 15:37 15:37 16:37 WBC 17.2 H (4.8-10.8) X10*3/uL RBC 5.28 (4.20-5.50) X10*6/uL Hgb 11.4 L (12.0-16.0) g/dl Hct 36.2 L (37.0-47.0) % MCV 68.6 L (80.0-98.0) fL MCH 21.6 L (27.0-33.0) pg MCHC 31.5 (31.0-35.0) g/dl RDW 15.2 (11.0-16.0) % Plt Count 289 (160-400) X10*3/uL MPV 11.4 (9.4-12.3) fL Immature Gran % (Auto) 0.3 (0.0-0.4) % Neut % (Auto) 87.4 H (45-73) % Lymph % (Auto) 7.2 L (20-40) % [facility] % (Auto) 4.4 (2-11) % Eos % (Auto) 0.3 (0-4) % Baso % (Auto) 0.4 (0-2) % Lymph # (Auto) 1.2 (1.2-4.9) X10*3/uL [facility] # (Auto) 0.8 (0.1-1.2) X10*3/uL Eos # (Auto) 0.1 (0.0-0.4) X10*3/uL Baso # (Auto) 0.1 (0.0-0.2) X10*3/uL Abs Immat Gran (auto) 0.06 H (0.00-0.03) X10*3/uL Absolute Neuts (auto) 15.0 H (2.0-8.3) x10*3/uL Absolute Nucleated RBC 0.000 (0.0-0.012) X10*3/uL Nucleated RBC % (auto) 0.0 (0.0-0.2) /100WBC Sodium 137 (135-145) mmol/L Potassium 3.0 L D (3.3-5.1) mmol/L Chloride 101 (96-108) mmol/L Carbon Dioxide 26 (22-29) mmol/L Anion Gap 13 (12-20) BUN 12 (9-16) mg/dL Creatinine 0.90 (0.5-1.4) mg/dL Estim Creat Clear Calc 80.1 Estimated GFR > 60 Random Glucose 95 (60-115) mg/dL Calcium 10.1 (8.4-10.2) mg/dL Urine Color Yellow Urine Appearance Clear Urine pH >= 9.0 (5.0-9.0) Ur Specific [place] 1.015 (1.005-1.025) Urine Protein Trace (Neg-Trace) mg/dL Urine Glucose (UA) Negative (Negative) mg/dL Urine Ketones Trace (Negative) mg/dL Urine Blood Negative (Negative) Urine Nitrite Negative (Negative) Ur Leukocyte Esterase Trace H (Negative) Urine RBC 0-2 (0-2) /HPF Urine WBC 0-5 (0-5) /HPF Ur Squamous Epith Cells 6-10 (0-2) /HPF Urine Bacteria Trace (None Seen) Hyaline Casts 0-2 (0-2) /LPF Urine Test (NEGATIVE) 01/31/23 Range/Units 16:37 WBC (4.8-10.8) X10*3/uL RBC (4.20-5.50) X10*6/uL Hgb (12.0-16.0) g/dl Hct (37.0-47.0) % MCV (80.0-98.0) fL MCH (27.0-33.0) pg MCHC (31.0-35.0) g/dl RDW (11.0-16.0) % Plt Count (160-400) X10*3/uL MPV (9.4-12.3) fL Immature Gran % (Auto) (0.0-0.4) % Neut % (Auto) (45-73) % Lymph % (Auto) (20-40) % [facility] % (Auto) (2-11) % Eos % (Auto) (0-4) % Baso % (Auto) (0-2) % Lymph # (Auto) (1.2-4.9) X10*3/uL [facility] # (Auto) (0.1-1.2) X10*3/uL Eos # (Auto) (0.0-0.4) X10*3/uL Baso # (Auto) (0.0-0.2) X10*3/uL Abs Immat Gran (auto) (0.00-0.03) X10*3/uL Absolute Neuts (auto) (2.0-8.3) x10*3/uL Absolute Nucleated RBC (0.0-0.012) X10*3/uL Nucleated RBC % (auto) (0.0-0.2) /100WBC Sodium (135-145) mmol/L Potassium (3.3-5.1) mmol/L Chloride (96-108) mmol/L Carbon Dioxide (22-29) mmol/L Anion Gap (12-20) BUN (9-16) mg/dL Creatinine (0.5-1.4) mg/dL Estim Creat Clear Calc Estimated GFR Random Glucose (60-115) mg/dL Calcium (8.4-10.2) mg/dL Urine Color Urine Appearance Urine pH (5.0-9.0) Ur Specific [place] (1.005-1.025) Urine Protein (Neg-Trace) mg/dL Urine Glucose (UA) (Negative) mg/dL Urine Ketones (Negative) mg/dL Urine Blood (Negative) Urine Nitrite (Negative) Ur Leukocyte Esterase (Negative) Urine RBC (0-2) /HPF Urine WBC (0-5) /HPF Ur Squamous Epith Cells (0-2) /HPF Urine Bacteria (None Seen) Hyaline Casts (0-2) /LPF Urine Test NEGATIVE (NEGATIVE) Medications Administered Generic Name Dose Route Start Last Admin Trade Name Freq PRN Reason Stop Dose Admin Potassium Chloride 10 meq in 100 mls @ 100 mls/hr 01/31/23 18:45 01/31/23 20:57 Potassium Chloride/H20 IV 01/31/23 22:44 100 mls/hr Q1H HENRY Administration Discontinued Medications Generic Name Dose Route Start Last Admin Trade Name Freq PRN Reason Stop Dose Admin Sodium Chloride 1,000 mls @ 999 mls/hr 01/31/23 18:41 01/31/23 19:36 Ns IVCONT 01/31/23 19:41 999 mls/hr .Q1H1M ONE Administration Iohexol 100 ml 01/31/23 21:22 01/31/23 21:24 Iohexol 350 Mg/Ml 100 Ml Infus..Btl IV 01/31/23 21:23 85 ml ONCE ONE Administration Ketorolac Tromethamine 30 mg 01/31/23 18:01/31/23 19:35 Ketorolac Tromethamine 30 Mg/Ml Vial IVPUSH 01/31/23 18:10 30 mg ONCE ONE Administration Ondansetron HCl 4 mg 01/31/23 18:09 01/31/23 19:36 Ondansetron Hcl 4 Mg/2 Ml Vial IVPUSH 01/31/23 18:10 4 mg ONCE ONE Administration Discharge Plan Discharge Clinical Impression: Abdominal pain, Dysuria Patient Disposition: Still a Patient Prescriptions: No Action lorazepam [Ativan] 0.5 mg tablet 0.5 mg PO BEDTIME PRN (Reason: anxiety) Qty: 14 0RF metoclopramide HCl [Reglan] 10 mg tablet 10 mg PO Q6H PRN (Reason: nausea and vomiting) Qty: 14 0RF cyclobenzaprine 5 mg tablet 5 mg PO TID PRN (Reason: muscle spasm) Qty: 10 0RF ibuprofen 600 mg tablet 600 mg PO Q6H PRN (Reason: pain) Qty: 30 0RF azithromycin [Zithromax Z-Trevor] 250 mg tablet 250 mg PO DAILY 5 Days Qty: 5 0RF erythromycin 5 mg/gram (0.5 %) ointment 0.5 inch ophthalmic (eye) TID Qty: 3.5 0RF clindamycin HCl 300 mg capsule 300 mg PO TID 10 Days Qty: 30 0RF ibuprofen 800 mg tablet 800 mg PO Q8H PRN (Reason: pain) Qty: 14 0RF oxycodone-acetaminophen [Percocet] 5-325 mg tablet 1 tab PO Q6H PRN (Reason: pain) Qty: 10 0RF ondansetron 4 mg tablet,disintegrating 4 mg PO Q6-8H PRN (Reason: nausea and vomiting) Qty: 7 0RF ciprofloxacin HCl 500 mg tablet 500 mg PO Q12H 5 Days Qty: 10 0RF cefpodoxime 100 mg tablet 100 mg PO BID Qty: 20 0RF Rx Instructions: must administer with a meal/food ondansetron 4 mg tablet,disintegrating 4 mg PO Q8H PRN (Reason: nausea and vomiting) Qty: 10 0RF clindamycin HCl 150 mg capsule 150 mg PO TID Qty: 20 0RF ibuprofen 400 mg tablet 400 mg PO Q8H PRN (Reason: pain) Qty: 30 0RF lorazepam [Ativan] 0.5 mg tablet 0.5 mg PO BID PRN (Reason: anxiety) Qty: 10 0RF ondansetron 4 mg tablet,disintegrating 4 mg PO Q6H PRN (Reason: nausea and vomiting) Qty: 7 0RF lorazepam [Ativan] 0.5 mg tablet 0.5 mg PO BID PRN (Reason: anxiety) Qty: 10 0RF lorazepam [Ativan] 1 mg tablet 1 mg PO BID PRN (Reason: anxiety/sleep) Qty: 14 0RF ibuprofen 600 mg tablet 600 mg PO Q8H PRN (Reason: pain) Qty: 30 0RF tramadol 50 mg tablet 50 mg PO Q8H PRN (Reason: pain) Qty: 8 0RF clindamycin HCl 300 mg capsule 300 mg PO Q8H 7 Days Qty: 21 0RF ciprofloxacin-dexamethasone [Ciprodex] 0.3-0.1 % drops,suspension 4 drp otic (ears) BID 7 Days Qty: 7.5 0RF ciprofloxacin HCl [Cipro] 500 mg tablet 500 mg PO BID Qty: 14 0RF famotidine [Pepcid] 20 mg tablet 20 mg PO BID 10 Days Qty: 20 0RF clindamycin HCl 300 mg capsule 300 mg PO QID 10 Days Qty: 40 0RF naproxen 500 mg tablet 500 mg PO BID PRN (Reason: pain) 7 Days Qty: 14 0RF azithromycin 250 mg tablet See Rx Instructions .ROUTE .COMPLEX Qty: 6 0RF Rx Instructions: For 250 mg dose pack: take 500 mg today (day 1), then 250 mg for 4 days (days 2-5) chlorhexidine gluconate 0.12 % mouthwash 15 ml buccal BID 7 Days Qty: 300 0RF pantoprazole [Protonix] 40 mg tablet,delayed release (DR/EC) 40 mg PO DAILY Qty: 14 0RF tramadol 50 mg tablet 50 mg PO Q8H PRN (Reason: pain) Qty: 8 0RF omeprazole 20 mg capsule,delayed release(DR/EC) 20 mg PO DAILY Qty: 30 0RF Rx Instructions: Take before meals in morning ondansetron 4 mg tablet,disintegrating 4 mg PO Q6-8H PRN (Reason: nausea and vomiting) Qty: 10 0RF cefuroxime axetil 250 mg tablet 250 mg PO BID 7 Days Qty: 14 0RF
[2023-01-31] MEDS: Ketorolac Tromethamine 30 MG/ML VIAL IVPUSH (19:35)
[2023-01-31] MEDS: 0.9 % Sodium Chloride 1,000 ML 999 ML IVCONT (19:36)
[2023-01-31] MEDS: Potassium Chloride/H20 10 MEQ/100 ML PIGGYBACK 100 MEQ IV ×3 (19:36→22:39)
[2023-01-31] MEDS: ondansetron HCL 4 MG/2 ML VIAL IVPUSH (19:36)
--- NOTE | 2023-01-31 19:43 | PC.NURSE ---
Assumed care of pt./ Pt lying on stretcher, endorsing lower abdominal pain radiating to bilat flanks, 05/21. Denies active vomiting, diarrhea at this time. Ambulated to bathroom with slow steady gait, no assistance needed. Established IV line and medicated per orders. Pt lights out, warm blanket provided, will reevaluate for pain per protocol.
[2023-01-31 20:27] VITALS: BP 122/66; PULSE 96; RESP 16; TEMP 37.2; O2SAT 97
[2023-01-31] MEDS: iohexoL 350 MG/ML 100 ML INFUS..BTL IV (21:24)
[2023-01-31 22:08] VITALS: BP 130/85; PULSE 85; RESP 12; TEMP 36.9; O2SAT 98
[2023-01-31 23:20] LABS: Alanine Aminotransferase 14 U/L (0-31); Albumin Level 4.8 g/dL (3.5-5.0); Alkaline Phosphatase 74 U/L (39-117); Aspartate Amino Transferase 14 U/L (5-31); Bilirubin Direct 0.2 mg/dL (0.0-0.5); Bilirubin Total 0.6 mg/dL (0.0-1.0); Lipase 29 U/L (8-78); Total Protein 8.2 g/dL (6.5-8.0)
[2023-01-31] MEDS: cefTRIAXone sodium 1 GM in 0.9 % Sodium Chloride 50 ML IV (23:53)
--- NOTE | 2023-01-31 23:55 | PC.NURSE ---
Per Dr. Herman, only 3 bags of potassium chloride to be administered.
[2023-02-01] MEDS: Magnesium Hydrox/Alum Hydrox 30 ML ORAL.SUSP PO
[2023-02-01] MEDS: Ondansetron ODT 4 MG TAB.RAPDIS TRANSLINGU (00:01)
[2023-02-01] MEDS: Famotidine/PF 20 MG/2 ML VIAL IVPUSH (00:05)
[2023-02-01 00:20] VITALS: BP 137/68; PULSE 97; RESP 20; TEMP 36.8; O2SAT 98
== END 2023-02-01 01:40 | disposition home or self-care (01) ==
PROVIDERS: Emergency Medicine; Emergency Provider Emergency Medicine
DX: R10.30 Lower abdominal pain, unspecified (principal); R30.0 Dysuria; I10 Essential (primary) hypertension; D64.9 Anemia, unspecified; F41.9 Anxiety disorder, unspecified
CPT/HCPCS: 36415; 74177; 80048; 80076; 81001; 81025; 83690; 85025; 96361; 96365; 96366; 96367; 96375; 99285; J0696; J1885; J2405; Q9967

== ENCOUNTER 2023-02-02 23:28 | Emergency (ER) | payer OTHER, SELFPAY ==
[2023-02-02 23:29] VITALS: PULSE 76; RESP 18; TEMP 36.6; O2SAT 100; BMI 29.0
[2023-02-02 23:43] LABS: MANUAL DIFF FLAG NO
[2023-02-02 23:44] LABS: Basophils Percent Auto 0.4 % (0-2); Eosinophils Absolute Auto 0.3 X10*3/uL (0.0-0.4); Eosinophils Percent Auto 3.8 % (0-4); Hematocrit 31.6 % (37.0-47.0); Hemoglobin 9.3 g/dl (12.0-16.0); Imm Gran Abs Auto 0.02 X10*3/uL (0.00-0.03); Imm Gran Pct Auto 0.2 % (0.0-0.4); Lymphocytes Absolute Auto 2.8 X10*3/uL (1.2-4.9); Lymphocytes Percent Auto 31.7 % (20-40); Mean Corpuscular HGB Conc 29.4 g/dl (31.0-35.0); Mean Corpuscular Hemoglobin 20.8 pg (27.0-33.0); Mean Corpuscular Volume 70.7 fL (80.0-98.0); Mean Platelet Volume 11.4 fL (9.4-12.3); Monocytes Absolute Auto 0.6 X10*3/uL (0.1-1.2); Monocytes Percent Auto 6.3 % (2-11); Neutrophils Absolute Auto 5.1 x10*3/uL (2.0-8.3); Neutrophils Percent Auto 57.6 % (45-73); Platelet Count 246 X10*3/uL (160-400); Red Blood Count 4.47 X10*6/uL (4.20-5.50); Red Cell Distribution Width 15.4 % (11.0-16.0); White Blood Count 8.9 X10*3/uL (4.8-10.8)
[2023-02-03 00:06] LABS: Alanine Aminotransferase 14 U/L (0-31); Albumin Level 4.3 g/dL (3.5-5.0); Alkaline Phosphatase 67 U/L (39-117); Anion Gap 13 (12-20); Aspartate Amino Transferase 15 U/L (5-31); Bilirubin Direct < 0.2 mg/dL (0.0-0.5); Bilirubin Total 0.2 mg/dL (0.0-1.0); Blood Urea Nitrogen 11 mg/dL (9-16); Calcium 9.4 mg/dL (8.4-10.2); Carbon Dioxide 26 mmol/L (22-29); Chloride 105 mmol/L (96-108); Creatinine Clr Calc Pharmacy 112.7; Estimated Glomerular Filt Rate > 60; Glucose Random 94 mg/dL (60-115); Lipase 37 U/L (8-78); Potassium 4.1 mmol/L (3.3-5.1); Sodium 140 mmol/L (135-145); Total Protein 7.4 g/dL (6.5-8.0)
[2023-02-03 00:14] LABS: UPreg QC Valid YES; Urine Pregnancy NEGATIVE (NEGATIVE)
[2023-02-03 00:16] LABS: Appearance Urine Clear; Color Urine Yellow; Glucose Urine UA Negative (Negative); Leukocyte Esterase Urine Moderate (2+) (Negative); Nitrite Urine Negative (Negative); UMIC TRIGGER UACC YES; Urine Blood Negative (Negative); Urine Ketones Negative (Negative); Urine Protein Negative (Neg-Trace)
[2023-02-03 00:19] LABS: Bacteria Urine None Seen (None Seen); Hyaline Casts Urine 0-2 /LPF (0-2); RBC Urine 0-2 /HPF (0-2); UACC Culture Trigger YES
--- NOTE | 2023-02-03 02:23 | ED.ABDPAIN ---
HPI - Abdominal Pain General Chief Complaint: Abdominal Pain Stated Complaint: Abd pain Time Seen by Provider: 02/03/23 02:18 Source: patient Mode of arrival: ambulatory Limitations: no limitations History of Present Illness HPI narrative: Patient comes to emergency room complaining of abdominal pain and distension. Patient was seen here 2 days ago, CT scan showed a large amount of stool. Patient states the last time she moved her bowels was approximately 1 week ago. Patient states that she has been vomiting here. Patient has been here in the emergency room for several hours, but she has not had any nausea or vomiting episodes. Related Data Previous Rx's Medication Instructions Recorded azithromycin 250 mg tablet 250 mg PO DAILY 5 days #5 tabs 06/14/20 (Zithromax Z-Trevor) clindamycin HCl 300 mg capsule 300 mg PO TID Periorbital 08/15/20 cellulitis 10 days #30 caps erythromycin 5 mg/gram (0.5 %) eye 0.5 inch ophthalmic (eye) TID #3.5 08/15/20 ointment grams ibuprofen 800 mg tablet 800 mg PO Q8H PRN pain #14 tabs 08/15/20 oxycodone-acetaminophen 5 mg-325 1 tab PO Q6H PRN pain #10 tabs 08/15/20 mg tablet (Percocet) lorazepam 0.5 mg tablet (Ativan) 0.5 mg PO BEDTIME PRN anxiety #14 10/31/20 tabs metoclopramide HCl 10 mg tablet 10 mg PO Q6H PRN nausea and 02/22/21 (Reglan) vomiting #14 tabs cyclobenzaprine 5 mg tablet 5 mg PO TID PRN muscle spasm #10 05/10/21 tabs ibuprofen 600 mg tablet 600 mg PO Q6H PRN pain #30 tabs 05/10/21 lorazepam 1 mg tablet (Ativan) 1 mg PO BID PRN anxiety/sleep #14 07/02/21 tabs ondansetron 4 mg disintegrating 4 mg PO Q6-8H PRN nausea and 07/16/21 tablet vomiting #7 tabs ciprofloxacin HCl 500 mg tablet 500 mg PO Q12H 5 days #10 tabs 10/05/21 cefpodoxime 100 mg tablet 100 mg PO BID #20 tabs 10/08/21 clindamycin HCl 300 mg capsule 300 mg PO Q8H 7 days #21 caps 10/22/21 ibuprofen 600 mg tablet 600 mg PO Q8H PRN pain #30 tabs 10/22/21 tramadol 50 mg tablet 50 mg PO Q8H PRN pain #8 tabs 10/22/21 ondansetron 4 mg disintegrating 4 mg PO Q8H PRN nausea and 01/26/22 tablet vomiting #10 tabs ciprofloxacin 0.3 %-dexamethasone 4 drp otic (ears) BID 7 days #7.5 05/06/22 0.1 % ear drops,suspension mL (Ciprodex) ciprofloxacin HCl 500 mg tablet 500 mg PO BID #14 tabs 05/06/22 (Cipro) clindamycin HCl 150 mg capsule 150 mg PO TID #20 caps 06/13/22 ibuprofen 400 mg tablet 400 mg PO Q8H PRN pain #30 tabs 06/13/22 famotidine 20 mg tablet (Pepcid) 20 mg PO BID 10 days #20 tabs 07/31/22 lorazepam 0.5 mg tablet (Ativan) 0.5 mg PO BID PRN anxiety #10 tabs 09/21/22 lorazepam 0.5 mg tablet (Ativan) 0.5 mg PO BID PRN anxiety #10 tabs 09/21/22 ondansetron 4 mg disintegrating 4 mg PO Q6H PRN nausea and 09/21/22 tablet vomiting #7 tabs pantoprazole 40 mg tablet,delayed 40 mg PO DAILY #14 tabs 12/05/22 release (Protonix) clindamycin HCl 300 mg capsule 300 mg PO QID 10 days #40 caps 12/19/22 naproxen 500 mg tablet 500 mg PO BID PRN pain 7 days #14 12/19/22 tabs tramadol 50 mg tablet 50 mg PO Q8H PRN pain #8 tabs 12/28/22 azithromycin 250 mg tablet See Rx Instructions PO .COMPLEX #6 12/30/22 tabs chlorhexidine gluconate 0.12 % 15 ml buccal BID 7 days #300 mL 12/30/22 mouthwash omeprazole 20 mg capsule,delayed 20 mg PO DAILY #30 caps 01/16/23 release ondansetron 4 mg disintegrating 4 mg PO Q6-8H PRN nausea and 01/16/23 tablet vomiting #10 tabs cefuroxime axetil 250 mg tablet 250 mg PO BID 7 days #14 tabs 01/19/23 cefuroxime axetil 250 mg tablet 250 mg PO BID #14 tabs 01/31/23 omeprazole magnesium 20 mg 20 mg PO BID #30 tabs 01/31/23 tablet,delayed release (Prilosec OTC) ondansetron 4 mg disintegrating 4 mg PO Q8-12H PRN nausea and 01/31/23 tablet vomiting #7 tabs mineral oil 118 ml ID DAILY PRN constipation 02/03/23 #133 mL ondansetron 4 mg disintegrating 4 mg PO Q6H PRN nausea and 02/03/23 tablet vomiting #14 tabs polyethylene glycol 3350 17 17 g PO BID #238 grams 02/03/23 gram/dose oral powder (Miralax) Allergies Allergy/AdvReac Type Severity Reaction Status Date / Time amoxicillin [AMOXICILLIN] Allergy Unknown UNKNOWN Verified 01/21/23 00:02 clavulanic acid Allergy Unknown Unknown Verified 01/21/23 00:02 [From Augmentin] cyclobenzaprine Allergy Palpitation Verified 01/21/23 00:02 [From Flexeril] s escitalopram Allergy Palpitation Verified 01/21/23 00:02 s Review of Systems Review of Systems Constitutional : No Weight loss, No Fever, No Chills, No Night Sweats, No Fatigue, No Malaise ENT/Mouth : No Hearing loss, No Ear Pain, No Nasal Congestion, No Sinus Pain, No Hoarseness, No sore throat, No Rhinorrhea, No Swallowing Difficulty Eyes: No Eye Pain, No Swelling, No Redness, No Foreign Body, No Discharge, No Vision Changes Cardiovascular : No Chest Pain, No SOB, No Dyspnea on Exertion, No Orthopnea, No Edema, No Palpitations Respiratory : No Cough, No Sputum, No Wheezing, No Smoke Exposure, No Dyspnea Gastrointestinal : Complaining of nausea, complaining of constipation and abdominal distention Pain, No Hematochezia, No Melena Genitourinary : no irregular bleeding, No Dysuria, No Urinary Frequency, No Hematuria, No Urinary Incontinence, No Urgency, No Flank Pain, No Urinary Flow Changes, No Hesitancy Musculoskeletal : No joint pain, No Myalgias, No Joint Swelling Skin : No Skin Lesions, No rash Neuro : No Weakness, No Numbness, No Paresthesias, No Loss of Consciousness, No Dizziness, No Headache Psych : No Anxiety/Panic, No Depression, No SI/HI/AH/VH, No Social Issues, Heme/Lymph: No Bruising, No Bleeding,No Lymphadenopathy Endocrine : No Polyuria, No Polydipsia, No Temperature Intolerance [facility] Past Medical History Medical History Anemia Anxiety HTN (hypertension) Surgical History H/O: Social History Social History Alcohol intake: never Patient Tobacco Use Status: Never used Tobacco Advance Directives: No Advance Directives Information Provided: Yes Physical Exam ED Vital Signs: Vital Signs - 24 hr 02/02/23 23:29 Temperature 97.8 F Pulse Rate 76 Respiratory Rate 18 Pulse Oximetry 100 Oxygen Delivery Method Room Air BMI result Body Mass Index 29.0 Const Other: Appearance: Alert. Oriented X3. No acute distress. Sleeping comfortably Eyes: Pupils equal, round and reactive to light. ENT: Pharynx normal. Neck: Normal inspection. Neck supple. No lymph nodes noted. No crepitus CVS: Normal heart rate and rhythm. Pulses normal. Normal S1 and S2 Respiratory: No respiratory distress. Breath sounds normal. No Wheezing. No rales Abdomen: Soft and nontender. No rigidity. No distention. Skin: Skin warm and dry. Normal skin color. Normal skin turgor. Extremities: No lower extremity edema. No Lacerations. No Rash Neuro: Oriented X 3. No motor deficit. No sensory deficit. Moving all extremities. No slurred speech. CN 2 through 12 grossly intact Psych: calm, cooperative, normal affect Medical Decision Making Medical Decision Making MDM Narrative: -patient's labs are much better than the last time. Patient has same complaints, no changes, patient well appearing, no significant abdominal pain on palpation, patient is constipated. No need to repeat imaging at this time. Patient will be going home with a prescription of MiraLax and enemas if needed Lab Data 02/02/23 23:38 02/02/23 23:38 Labs: Lab Results 02/02/23 02/02/23 02/03/23 Range/Units 23:38 23:38 00:05 WBC 8.9 (4.8-10.8) X10*3/uL RBC 4.47 (4.20-5.50) X10*6/uL Hgb 9.3 L (12.0-16.0) g/dl Hct 31.6 L (37.0-47.0) % MCV 70.7 L (80.0-98.0) fL MCH 20.8 L (27.0-33.0) pg MCHC 29.4 L (31.0-35.0) g/dl RDW 15.4 (11.0-16.0) % Plt Count 246 (160-400) X10*3/uL MPV 11.4 (9.4-12.3) fL Immature Gran % (Auto) 0.2 (0.0-0.4) % Neut % (Auto) 57.6 (45-73) % Lymph % (Auto) 31.7 (20-40) % Archer % (Auto) 6.3 (2-11) % Eos % (Auto) 3.8 (0-4) % Baso % (Auto) 0.4 (0-2) % Lymph # (Auto) 2.8 (1.2-4.9) X10*3/uL Archer # (Auto) 0.6 (0.1-1.2) X10*3/uL Eos # (Auto) 0.3 (0.0-0.4) X10*3/uL Baso # (Auto) 0.0 (0.0-0.2) X10*3/uL Abs Immat Gran (auto) 0.02 (0.00-0.03) X10*3/uL Absolute Neuts (auto) 5.1 (2.0-8.3) x10*3/uL Absolute Nucleated RBC 0.000 (0.0-0.012) X10*3/uL Nucleated RBC % (auto) 0.0 (0.0-0.2) /100WBC Sodium 140 (135-145) mmol/L Potassium 4.1 D (3.3-5.1) mmol/L Chloride 105 (96-108) mmol/L Carbon Dioxide 26 (22-29) mmol/L Anion Gap 13 (12-20) BUN 11 (9-16) mg/dL Creatinine 0.80 (0.5-1.4) mg/dL Estim Creat Clear Calc 112.7 Estimated GFR > 60 Random Glucose 94 (60-115) mg/dL Calcium 9.4 D (8.4-10.2) mg/dL Total Bilirubin 0.2 (0.0-1.0) mg/dL Direct Bilirubin < 0.2 (0.0-0.5) mg/dL AST 15 (5-31) U/L ALT 14 (0-31) U/L Alkaline Phosphatase 67 (39-117) U/L Total Protein 7.4 (6.5-8.0) g/dL Albumin 4.3 (3.5-5.0) g/dL Lipase 37 (8-78) U/L Urine Color Yellow Urine Appearance Clear Urine pH 8.0 (5.0-9.0) Ur Specific [place] 1.010 (1.005-1.025) Urine Protein Negative (Neg-Trace) mg/dL Urine Glucose (UA) Negative (Negative) mg/dL Urine Ketones Negative (Negative) mg/dL Urine Blood Negative (Negative) Urine Nitrite Negative (Negative) Ur Leukocyte Esterase Moderate (2+) H (Negative) Urine RBC 0-2 (0-2) /HPF Urine WBC 6-10 H (0-5) /HPF Ur Squamous Epith Cells 6-10 (0-2) /HPF Urine Bacteria None Seen (None Seen) Hyaline Casts 0-2 (0-2) /LPF Urine Test (NEGATIVE) 02/03/23 Range/Units 00:05 WBC (4.8-10.8) X10*3/uL RBC (4.20-5.50) X10*6/uL Hgb (12.0-16.0) g/dl Hct (37.0-47.0) % MCV (80.0-98.0) fL MCH (27.0-33.0) pg MCHC (31.0-35.0) g/dl RDW (11.0-16.0) % Plt Count (160-400) X10*3/uL MPV (9.4-12.3) fL Immature Gran % (Auto) (0.0-0.4) % Neut % (Auto) (45-73) % Lymph % (Auto) (20-40) % Archer % (Auto) (2-11) % Eos % (Auto) (0-4) % Baso % (Auto) (0-2) % Lymph # (Auto) (1.2-4.9) X10*3/uL Archer # (Auto) (0.1-1.2) X10*3/uL Eos # (Auto) (0.0-0.4) X10*3/uL Baso # (Auto) (0.0-0.2) X10*3/uL Abs Immat Gran (auto) (0.00-0.03) X10*3/uL Absolute Neuts (auto) (2.0-8.3) x10*3/uL Absolute Nucleated RBC (0.0-0.012) X10*3/uL Nucleated RBC % (auto) (0.0-0.2) /100WBC Sodium (135-145) mmol/L Potassium (3.3-5.1) mmol/L Chloride (96-108) mmol/L Carbon Dioxide (22-29) mmol/L Anion Gap (12-20) BUN (9-16) mg/dL Creatinine (0.5-1.4) mg/dL Estim Creat Clear Calc Estimated GFR Random Glucose (60-115) mg/dL Calcium (8.4-10.2) mg/dL Total Bilirubin (0.0-1.0) mg/dL Direct Bilirubin (0.0-0.5) mg/dL AST (5-31) U/L ALT (0-31) U/L Alkaline Phosphatase (39-117) U/L Total Protein (6.5-8.0) g/dL Albumin (3.5-5.0) g/dL Lipase (8-78) U/L Urine Color Urine Appearance Urine pH (5.0-9.0) Ur Specific [place] (1.005-1.025) Urine Protein (Neg-Trace) mg/dL Urine Glucose (UA) (Negative) mg/dL Urine Ketones (Negative) mg/dL Urine Blood (Negative) Urine Nitrite (Negative) Ur Leukocyte Esterase (Negative) Urine RBC (0-2) /HPF Urine WBC (0-5) /HPF Ur Squamous Epith Cells (0-2) /HPF Urine Bacteria (None Seen) Hyaline Casts (0-2) /LPF Urine Test NEGATIVE (NEGATIVE) Discharge Plan Discharge Clinical Impression: Constipation Patient Disposition: Home, Self-Care Instructions: Constipation (ED) Additional Instructions: Please follow-up with your primary care physician tomorrow. If you have any worsening or new symptoms, please return to the emergency room or call 911 Prescriptions: New polyethylene glycol 3350 [Miralax] 17 gram/dose powder 17 g PO BID Qty: 238 0RF mineral oil Enema 118 ml ID DAILY PRN (Reason: constipation) Qty: 133 0RF Rx Instructions: discard any unused portion ondansetron 4 mg tablet,disintegrating 4 mg PO Q6H PRN (Reason: nausea and vomiting) Qty: 14 0RF No Action lorazepam [Ativan] 0.5 mg tablet 0.5 mg PO BEDTIME PRN (Reason: anxiety) Qty: 14 0RF metoclopramide HCl [Reglan] 10 mg tablet 10 mg PO Q6H PRN (Reason: nausea and vomiting) Qty: 14 0RF cyclobenzaprine 5 mg tablet 5 mg PO TID PRN (Reason: muscle spasm) Qty: 10 0RF ibuprofen 600 mg tablet 600 mg PO Q6H PRN (Reason: pain) Qty: 30 0RF azithromycin [Zithromax Z-Trevor] 250 mg tablet 250 mg PO DAILY 5 Days Qty: 5 0RF erythromycin 5 mg/gram (0.5 %) ointment 0.5 inch ophthalmic (eye) TID Qty: 3.5 0RF clindamycin HCl 300 mg capsule 300 mg PO TID 10 Days Qty: 30 0RF ibuprofen 800 mg tablet 800 mg PO Q8H PRN (Reason: pain) Qty: 14 0RF oxycodone-acetaminophen [Percocet] 5-325 mg tablet 1 tab PO Q6H PRN (Reason: pain) Qty: 10 0RF ondansetron 4 mg tablet,disintegrating 4 mg PO Q6-8H PRN (Reason: nausea and vomiting) Qty: 7 0RF ciprofloxacin HCl 500 mg tablet 500 mg PO Q12H 5 Days Qty: 10 0RF cefpodoxime 100 mg tablet 100 mg PO BID Qty: 20 0RF Rx Instructions: must administer with a meal/food ondansetron 4 mg tablet,disintegrating 4 mg PO Q8H PRN (Reason: nausea and vomiting) Qty: 10 0RF clindamycin HCl 150 mg capsule 150 mg PO TID Qty: 20 0RF ibuprofen 400 mg tablet 400 mg PO Q8H PRN (Reason: pain) Qty: 30 0RF lorazepam [Ativan] 0.5 mg tablet 0.5 mg PO BID PRN (Reason: anxiety) Qty: 10 0RF ondansetron 4 mg tablet,disintegrating 4 mg PO Q6H PRN (Reason: nausea and vomiting) Qty: 7 0RF lorazepam [Ativan] 0.5 mg tablet 0.5 mg PO BID PRN (Reason: anxiety) Qty: 10 0RF lorazepam [Ativan] 1 mg tablet 1 mg PO BID PRN (Reason: anxiety/sleep) Qty: 14 0RF ibuprofen 600 mg tablet 600 mg PO Q8H PRN (Reason: pain) Qty: 30 0RF tramadol 50 mg tablet 50 mg PO Q8H PRN (Reason: pain) Qty: 8 0RF clindamycin HCl 300 mg capsule 300 mg PO Q8H 7 Days Qty: 21 0RF ciprofloxacin-dexamethasone [Ciprodex] 0.3-0.1 % drops,suspension 4 drp otic (ears) BID 7 Days Qty: 7.5 0RF ciprofloxacin HCl [Cipro] 500 mg tablet 500 mg PO BID Qty: 14 0RF famotidine [Pepcid] 20 mg tablet 20 mg PO BID 10 Days Qty: 20 0RF clindamycin HCl 300 mg capsule 300 mg PO QID 10 Days Qty: 40 0RF naproxen 500 mg tablet 500 mg PO BID PRN (Reason: pain) 7 Days Qty: 14 0RF azithromycin 250 mg tablet See Rx Instructions .ROUTE .COMPLEX Qty: 6 0RF Rx Instructions: For 250 mg dose pack: take 500 mg today (day 1), then 250 mg for 4 days (days 2-5) chlorhexidine gluconate 0.12 % mouthwash 15 ml buccal BID 7 Days Qty: 300 0RF pantoprazole [Protonix] 40 mg tablet,delayed release (DR/EC) 40 mg PO DAILY Qty: 14 0RF tramadol 50 mg tablet 50 mg PO Q8H PRN (Reason: pain) Qty: 8 0RF omeprazole 20 mg capsule,delayed release(DR/EC) 20 mg PO DAILY Qty: 30 0RF Rx Instructions: Take before meals in morning ondansetron 4 mg tablet,disintegrating 4 mg PO Q6-8H PRN (Reason: nausea and vomiting) Qty: 10 0RF cefuroxime axetil 250 mg tablet 250 mg PO BID 7 Days Qty: 14 0RF ondansetron 4 mg tablet,disintegrating 4 mg PO Q8-12H PRN (Reason: nausea and vomiting) Qty: 7 0RF omeprazole magnesium [Prilosec OTC] 20 mg tablet,delayed release (DR/EC) 20 mg PO BID Qty: 30 0RF cefuroxime axetil 250 mg tablet 250 mg PO BID Qty: 14 0RF
== END 2023-02-03 02:57 | disposition home or self-care (01) ==
PROVIDERS: Emergency Provider Emergency Medicine; PCP Internal Medicine
DX: K59.00 Constipation, unspecified (principal); Z79.899 Other long term (current) drug therapy
CPT/HCPCS: 36415; 80048; 80076; 81001; 81025; 83690; 85025; 87086; 99282; 99283

== ENCOUNTER 2023-02-09 23:02 | Emergency (ER) | payer OTHER, SELFPAY ==
--- NOTE | ~2023-02-09 | CT_ITS ---
EXAMINATION: CT HEAD WITHOUT CONTRAST CLINICAL INFORMATION: Headache and dizziness COMPARISON: 08/23/2022 TECHNIQUE: Contiguous axial imaging was performed from the skull base to vertex without intravenous administration of contrast. This CT examination was performed using dose optimization techniques as appropriate, variously including the following: *Automated exposure control *Adjustment of mA and/or kV according to patient size (this includes techniques or standardized protocols for targeted exams where dose is matched to indication/reason for exam; i.e. extremities or head) *Use of iterative reconstruction technique DLP: 546 mGy-cm FINDINGS: There is no evidence of acute intracranial hemorrhage or territorial infarction. No abnormal mass-effect or midline shift is seen. Maldonado to white matter differentiation is well preserved. No extra-axial fluid collections are identified. The ventricles are normal in size. There is no abnormal attenuation within the brain parenchyma. The osseous structures and soft tissues are normal. The mastoid air cells and visualized portions of the paranasal sinuses are well-aerated. CT/CT head/brain wo IV con IMPRESSION: No acute intracranial pathology.
[2023-02-09 23:46] VITALS: BP 158/91; PULSE 75; RESP 18; TEMP 36.1; O2SAT 99; BMI 29.5
[2023-02-10 00:55] LABS: MANUAL DIFF FLAG NO
[2023-02-10 00:57] LABS: Basophils Absolute Auto 0.1 X10*3/uL (0.0-0.2); Basophils Percent Auto 0.6 % (0-2); Eosinophils Absolute Auto 0.2 X10*3/uL (0.0-0.4); Eosinophils Percent Auto 2.1 % (0-4); Hematocrit 32.3 % (37.0-47.0); Hemoglobin 9.6 g/dl (12.0-16.0); Imm Gran Abs Auto 0.04 X10*3/uL (0.00-0.03); Imm Gran Pct Auto 0.3 % (0.0-0.4); Lymphocytes Absolute Auto 3.2 X10*3/uL (1.2-4.9); Lymphocytes Percent Auto 27.6 % (20-40); Mean Corpuscular HGB Conc 29.7 g/dl (31.0-35.0); Mean Corpuscular Volume 70.5 fL (80.0-98.0); Monocytes Absolute Auto 0.7 X10*3/uL (0.1-1.2); Monocytes Percent Auto 6.4 % (2-11); Neutrophils Absolute Auto 7.2 x10*3/uL (2.0-8.3); Platelet Count 306 X10*3/uL (160-400); Red Blood Count 4.58 X10*6/uL (4.20-5.50); Red Cell Distribution Width 15.7 % (11.0-16.0); White Blood Count 11.4 X10*3/uL (4.8-10.8)
[2023-02-10 01:15] LABS: Alanine Aminotransferase 10 U/L (0-31); Albumin Level 4.4 g/dL (3.5-5.0); Alkaline Phosphatase 61 U/L (39-117); Anion Gap 11 (12-20); Aspartate Amino Transferase 12 U/L (5-31); Bilirubin Direct 0.1 mg/dL (0.0-0.5); Bilirubin Total 0.3 mg/dL (0.0-1.0); Blood Urea Nitrogen 13 mg/dL (9-16); Calcium 9.7 mg/dL (8.4-10.2); Carbon Dioxide 26 mmol/L (22-29); Chloride 107 mmol/L (96-108); Creatinine Clr Calc Pharmacy 84.2; Estimated Glomerular Filt Rate > 60; Glucose Random 95 mg/dL (60-115); Lipase 81 U/L (8-78); Potassium 4.6 mmol/L (3.3-5.1); Sodium 139 mmol/L (135-145); Total Protein 7.5 g/dL (6.5-8.0)
--- NOTE | 2023-02-10 01:50 | ED_ITS ---
HPI - Headache General Chief Complaint: Headache Stated Complaint: dizziness, feels very hot inside Time Seen by Provider: 02/10/23 01:31 Source: patient Mode of arrival: ambulatory Limitations: no limitations History of Present Illness HPI Narrative: 27-year-old female came in for evaluation of headache, dizziness, feeling heat inside her head, nausea and vomiting x1, symptoms started about 6 hours ago with headache and vertigo then followed with the vomiting, patient get headache often but today's headache is worse than her usual headache. Related Data Previous Rx's Medication Instructions Recorded azithromycin 250 mg tablet 250 mg PO DAILY 5 days #5 tabs 06/14/20 (Zithromax Z-Trevor) clindamycin HCl 300 mg capsule 300 mg PO TID Periorbital 08/15/20 cellulitis 10 days #30 caps erythromycin 5 mg/gram (0.5 %) eye 0.5 inch ophthalmic (eye) TID #3.5 08/15/20 ointment grams ibuprofen 800 mg tablet 800 mg PO Q8H PRN pain #14 tabs 08/15/20 oxycodone-acetaminophen 5 mg-325 1 tab PO Q6H PRN pain #10 tabs 08/15/20 mg tablet (Percocet) lorazepam 0.5 mg tablet (Ativan) 0.5 mg PO BEDTIME PRN anxiety #14 10/31/20 tabs metoclopramide HCl 10 mg tablet 10 mg PO Q6H PRN nausea and 02/22/21 (Reglan) vomiting #14 tabs cyclobenzaprine 5 mg tablet 5 mg PO TID PRN muscle spasm #10 05/10/21 tabs ibuprofen 600 mg tablet 600 mg PO Q6H PRN pain #30 tabs 05/10/21 lorazepam 1 mg tablet (Ativan) 1 mg PO BID PRN anxiety/sleep #14 07/02/21 tabs ondansetron 4 mg disintegrating 4 mg PO Q6-8H PRN nausea and 07/16/21 tablet vomiting #7 tabs ciprofloxacin HCl 500 mg tablet 500 mg PO Q12H 5 days #10 tabs 10/05/21 cefpodoxime 100 mg tablet 100 mg PO BID #20 tabs 10/08/21 clindamycin HCl 300 mg capsule 300 mg PO Q8H 7 days #21 caps 10/22/21 ibuprofen 600 mg tablet 600 mg PO Q8H PRN pain #30 tabs 10/22/21 tramadol 50 mg tablet 50 mg PO Q8H PRN pain #8 tabs 10/22/21 ondansetron 4 mg disintegrating 4 mg PO Q8H PRN nausea and 01/26/22 tablet vomiting #10 tabs ciprofloxacin 0.3 %-dexamethasone 4 drp otic (ears) BID 7 days #7.5 05/06/22 0.1 % ear drops,suspension mL (Ciprodex) ciprofloxacin HCl 500 mg tablet 500 mg PO BID #14 tabs 05/06/22 (Cipro) clindamycin HCl 150 mg capsule 150 mg PO TID #20 caps 06/13/22 ibuprofen 400 mg tablet 400 mg PO Q8H PRN pain #30 tabs 06/13/22 famotidine 20 mg tablet (Pepcid) 20 mg PO BID 10 days #20 tabs 07/31/22 lorazepam 0.5 mg tablet (Ativan) 0.5 mg PO BID PRN anxiety #10 tabs 09/21/22 lorazepam 0.5 mg tablet (Ativan) 0.5 mg PO BID PRN anxiety #10 tabs 09/21/22 ondansetron 4 mg disintegrating 4 mg PO Q6H PRN nausea and 09/21/22 tablet vomiting #7 tabs pantoprazole 40 mg tablet,delayed 40 mg PO DAILY #14 tabs 12/05/22 release (Protonix) clindamycin HCl 300 mg capsule 300 mg PO QID 10 days #40 caps 12/19/22 naproxen 500 mg tablet 500 mg PO BID PRN pain 7 days #14 12/19/22 tabs tramadol 50 mg tablet 50 mg PO Q8H PRN pain #8 tabs 12/28/22 azithromycin 250 mg tablet See Rx Instructions PO .COMPLEX #6 12/30/22 tabs chlorhexidine gluconate 0.12 % 15 ml buccal BID 7 days #300 mL 12/30/22 mouthwash omeprazole 20 mg capsule,delayed 20 mg PO DAILY #30 caps 01/16/23 release ondansetron 4 mg disintegrating 4 mg PO Q6-8H PRN nausea and 01/16/23 tablet vomiting #10 tabs cefuroxime axetil 250 mg tablet 250 mg PO BID 7 days #14 tabs 01/19/23 cefuroxime axetil 250 mg tablet 250 mg PO BID #14 tabs 01/31/23 omeprazole magnesium 20 mg 20 mg PO BID #30 tabs 01/31/23 tablet,delayed release (Prilosec OTC) ondansetron 4 mg disintegrating 4 mg PO Q8-12H PRN nausea and 01/31/23 tablet vomiting #7 tabs mineral oil 118 ml [place] DAILY PRN constipation 02/03/23 #133 mL ondansetron 4 mg disintegrating 4 mg PO Q6H PRN nausea and 02/03/23 tablet vomiting #14 tabs polyethylene glycol 3350 17 17 g PO BID #238 grams 02/03/23 gram/dose oral powder (Miralax) Allergies Allergy/AdvReac Type Severity Reaction Status Date / Time amoxicillin [AMOXICILLIN] Allergy Unknown UNKNOWN Verified 02/09/23 23:50 clavulanic acid Allergy Unknown Unknown Verified 02/09/23 23:50 [From Augmentin] cyclobenzaprine Allergy Palpitation Verified 02/09/23 23:50 [From Flexeril] s escitalopram Allergy Palpitation Verified 02/09/23 23:50 s lorazepam [From Ativan] Allergy Palpitation Verified 02/09/23 23:50 s Review of Systems Review of Systems: All other systems are reviewed and are negative Constitutional: Reports as per HPI and Reports no additional constitutional complaints Eyes: Reports as per HPI and Reports no additional eye complaints Reports system reviewed and no additional complaints, except as documented Cardiovascular: Reports as per HPI and Reports no additional cardiovascular complaints Respiratory: Reports as per HPI and Reports no additional respiratory complaints Gastrointestinal: Reports as per HPI and Reports no additional gastrointestinal complaints Genitourinary: Reports no additional female genitourinary complaints Musculoskeletal: Reports no additional musculoskeletal complaints Skin/Breast: Reports system reviewed and no additional complaints, except as docu Psychiatric: Reports no additional psychiatric complaints Endocrine: Reports no additional endocrine complaints Hematologic/Lymphatic: Reports no additional hematologic/lymphatic complaints Allergic/Immunologic: Reports no additional allergic/immunologic complaints Reports system reviewed and no additional complaints, except as documented and Reports Abnormal speech present [facility] Past Medical History Medical History Anemia Anxiety HTN (hypertension) Surgical History H/O: Social History Social History Alcohol intake: never Patient Tobacco Use Status: Never used Tobacco Advance Directives: No Advance Directives Information Provided: No Physical Exam Vital Signs: Vital Signs: Last Vital Signs Temp 96.9 F 02/09/23 23:46 Pulse 75 02/09/23 23:46 Resp 18 02/09/23 23:46 BP 158/91 H 02/09/23 23:46 Pulse Ox 99 02/09/23 23:46 O2 Del Method Room Air 02/09/23 23:46 BMI result Body Mass Index 29.5 Vital signs have been reviewed as appeared to be correct. Blood pressure normal. Heart rate normal. Respiration rate normal. Temperature normal. Oxygen saturation normal. Appearance: Alert. Oriented X3. No acute distress. Head: Normal external exam. Normocephalic. Atraumatic. No Dumas signs noted. No raccoon eyes noted Eyes: PERRLA. EOMI. Conjunctiva and sclera normal. Eyelids normal. ENT: TM's Normal. Pharynx normal. Uvula midline. Moist mucous membranes. No trismus noted. No drooling noted. No muffled voice noted. Neck: Normal inspection. Neck supple. FROM. No adenopathy. Thyroid Normal. No meningeal signs. No neck mass noted. CVS: Normal heart rate and rhythm. Heart sound normal. No murmurs noted. Pulses normal throughout. Respiratory: No respiratory distress. Painless inspiration. Breath sounds norm al. No wheezes/rales/rhonchi noted. Chest nontender. No accessory muscle usage noted or decreased air movement noted. Abdomen: Soft and nontender. Bowel sounds normal in all 4 quadrants. No distenti on noted. No organomegaly noted. No visible injury noted. Back: No CVA tenderness. Full range of motion noted. Skin: Skin warm and dry. Normal skin color. Normal skin turgor. No rashes/lesions/lacerations noted. Extremities: No lower extremity edema. Extremities exhibit normal range of motion. Extremities nontender. Neuro: Oriented X 3. Cranial nerve exam: II-XII are grossly intact No motor deficit. No sensory deficit. Reflexes normal. Course Course Course Narrative: Feels better, headache has improved, and the dizziness able to tolerate p.o. intake, neuro exam is unremarkable, head CT is unremarkable. Medical Decision Making Differential Diagnosis Differential Diagnoses: The differential diagnosis associated with the presentation includes (Intracranial bleed, migraine headache, electrolytes abnormalities, severe anemia.) Admission/Observation Consideration of admission/observation: Escalation of care including admission/observation considered Lab Data MDM Lab Attestation statement: I reviewed the patient's lab results. 02/10/23 00:51 02/10/23 00:51 Labs: Lab Results 02/10/23 02/10/23 Range/Units 00:51 00:51 WBC 11.4 H (4.8-10.8) X10*3/uL RBC 4.58 (4.20-5.50) X10*6/uL Hgb 9.6 L (12.0-16.0) g/dl Hct 32.3 L (37.0-47.0) % MCV 70.5 L (80.0-98.0) fL MCH 21.0 L (27.0-33.0) pg MCHC 29.7 L (31.0-35.0) g/dl RDW 15.7 (11.0-16.0) % Plt Count 306 (160-400) X10*3/uL MPV 11.0 (9.4-12.3) fL Immature Gran % (Auto) 0.3 (0.0-0.4) % Neut % (Auto) 63.0 (45-73) % Lymph % (Auto) 27.6 (20-40) % Williamson % (Auto) 6.4 (2-11) % Eos % (Auto) 2.1 (0-4) % Baso % (Auto) 0.6 (0-2) % Lymph # (Auto) 3.2 (1.2-4.9) X10*3/uL Williamson # (Auto) 0.7 (0.1-1.2) X10*3/uL Eos # (Auto) 0.2 (0.0-0.4) X10*3/uL Baso # (Auto) 0.1 (0.0-0.2) X10*3/uL Abs Immat Gran (auto) 0.04 H (0.00-0.03) X10*3/uL Absolute Neuts (auto) 7.2 (2.0-8.3) x10*3/uL Absolute Nucleated RBC 0.000 (0.0-0.012) X10*3/uL Nucleated RBC % (auto) 0.0 (0.0-0.2) /100WBC Sodium 139 (135-145) mmol/L Potassium 4.6 (3.3-5.1) mmol/L Chloride 107 (96-108) mmol/L Carbon Dioxide 26 (22-29) mmol/L Anion Gap 11 L (12-20) BUN 13 (9-16) mg/dL Creatinine 0.86 (0.5-1.4) mg/dL Estim Creat Clear Calc 84.2 Estimated GFR > 60 Random Glucose 95 (60-115) mg/dL Calcium 9.7 (8.4-10.2) mg/dL Total Bilirubin 0.3 (0.0-1.0) mg/dL Direct Bilirubin 0.1 (0.0-0.5) mg/dL AST 12 (5-31) U/L ALT 10 (0-31) U/L Alkaline Phosphatase 61 (39-117) U/L Total Protein 7.5 (6.5-8.0) g/dL Albumin 4.4 (3.5-5.0) g/dL Lipase 81 H (8-78) U/L Independent Interpretation I performed an independent interpretation of an: CT Scan (Head CT: No acute intracranial pathology.) Radiology Impression Discussion of test interpretation with radiology: I have reviewed the radiologist's reading. Discharge Plan Discharge Clinical Impression: Tension headache Patient Disposition: Home, Self-Care Instructions: Tension Headache (ED) Prescriptions: No Action lorazepam [Ativan] 0.5 mg tablet 0.5 mg PO BEDTIME PRN (Reason: anxiety) Qty: 14 0RF metoclopramide HCl [Reglan] 10 mg tablet 10 mg PO Q6H PRN (Reason: nausea and vomiting) Qty: 14 0RF cyclobenzaprine 5 mg tablet 5 mg PO TID PRN (Reason: muscle spasm) Qty: 10 0RF ibuprofen 600 mg tablet 600 mg PO Q6H PRN (Reason: pain) Qty: 30 0RF azithromycin [Zithromax Z-Trevor] 250 mg tablet 250 mg PO DAILY 5 Days Qty: 5 0RF erythromycin 5 mg/gram (0.5 %) ointment 0.5 inch ophthalmic (eye) TID Qty: 3.5 0RF clindamycin HCl 300 mg capsule 300 mg PO TID 10 Days Qty: 30 0RF ibuprofen 800 mg tablet 800 mg PO Q8H PRN (Reason: pain) Qty: 14 0RF oxycodone-acetaminophen [Percocet] 5-325 mg tablet 1 tab PO Q6H PRN (Reason: pain) Qty: 10 0RF ondansetron 4 mg tablet,disintegrating 4 mg PO Q6-8H PRN (Reason: nausea and vomiting) Qty: 7 0RF ciprofloxacin HCl 500 mg tablet 500 mg PO Q12H 5 Days Qty: 10 0RF cefpodoxime 100 mg tablet 100 mg PO BID Qty: 20 0RF Rx Instructions: must administer with a meal/food ondansetron 4 mg tablet,disintegrating 4 mg PO Q8H PRN (Reason: nausea and vomiting) Qty: 10 0RF clindamycin HCl 150 mg capsule 150 mg PO TID Qty: 20 0RF ibuprofen 400 mg tablet 400 mg PO Q8H PRN (Reason: pain) Qty: 30 0RF lorazepam [Ativan] 0.5 mg tablet 0.5 mg PO BID PRN (Reason: anxiety) Qty: 10 0RF ondansetron 4 mg tablet,disintegrating 4 mg PO Q6H PRN (Reason: nausea and vomiting) Qty: 7 0RF lorazepam [Ativan] 0.5 mg tablet 0.5 mg PO BID PRN (Reason: anxiety) Qty: 10 0RF lorazepam [Ativan] 1 mg tablet 1 mg PO BID PRN (Reason: anxiety/sleep) Qty: 14 0RF ibuprofen 600 mg tablet 600 mg PO Q8H PRN (Reason: pain) Qty: 30 0RF tramadol 50 mg tablet 50 mg PO Q8H PRN (Reason: pain) Qty: 8 0RF clindamycin HCl 300 mg capsule 300 mg PO Q8H 7 Days Qty: 21 0RF ciprofloxacin-dexamethasone [Ciprodex] 0.3-0.1 % drops,suspension 4 drp otic (ears) BID 7 Days Qty: 7.5 0RF ciprofloxacin HCl [Cipro] 500 mg tablet 500 mg PO BID Qty: 14 0RF famotidine [Pepcid] 20 mg tablet 20 mg PO BID 10 Days Qty: 20 0RF clindamycin HCl 300 mg capsule 300 mg PO QID 10 Days Qty: 40 0RF naproxen 500 mg tablet 500 mg PO BID PRN (Reason: pain) 7 Days Qty: 14 0RF azithromycin 250 mg tablet See Rx Instructions .ROUTE .COMPLEX Qty: 6 0RF Rx Instructions: For 250 mg dose pack: take 500 mg today (day 1), then 250 mg for 4 days (days 2-5) chlorhexidine gluconate 0.12 % mouthwash 15 ml buccal BID 7 Days Qty: 300 0RF pantoprazole [Protonix] 40 mg tablet,delayed release (DR/EC) 40 mg PO DAILY Qty: 14 0RF tramadol 50 mg tablet 50 mg PO Q8H PRN (Reason: pain) Qty: 8 0RF omeprazole 20 mg capsule,delayed release(DR/EC) 20 mg PO DAILY Qty: 30 0RF Rx Instructions: Take before meals in morning ondansetron 4 mg tablet,disintegrating 4 mg PO Q6-8H PRN (Reason: nausea and vomiting) Qty: 10 0RF cefuroxime axetil 250 mg tablet 250 mg PO BID 7 Days Qty: 14 0RF ondansetron 4 mg tablet,disintegrating 4 mg PO Q8-12H PRN (Reason: nausea and vomiting) Qty: 7 0RF omeprazole magnesium [Prilosec OTC] 20 mg tablet,delayed release (DR/EC) 20 mg PO BID Qty: 30 0RF cefuroxime axetil 250 mg tablet 250 mg PO BID Qty: 14 0RF polyethylene glycol 3350 [Miralax] 17 gram/dose powder 17 g PO BID Qty: 238 0RF mineral oil Enema 118 ml [place] DAILY PRN (Reason: constipation) Qty: 133 0RF Rx Instructions: discard any unused portion ondansetron 4 mg tablet,disintegrating 4 mg PO Q6H PRN (Reason: nausea and vomiting) Qty: 14 0RF Referrals: Physician,None [Primary Care Provider] -
[2023-02-10] MEDS: Meclizine HCl 25 MG TABLET PO (02:07)
[2023-02-10 02:16] VITALS: BP 154/88; PULSE 66; RESP 18; O2SAT 99
[2023-02-10] MEDS: 0.9 % Sodium Chloride 1,000 ML 999 ML IV (02:18)
[2023-02-10 02:27] LABS: Appearance Urine Clear; Color Urine Yellow; Glucose Urine UA Negative (Negative); Leukocyte Esterase Urine Small (1+) (Negative); Nitrite Urine Negative (Negative); Specific Gravity - Urine 1.025 (1.005-1.025); UMIC TRIGGER UACC YES; Urine Blood Negative (Negative); Urine Ketones Negative (Negative); Urine Protein Negative (Neg-Trace)
[2023-02-10 02:28] LABS: UPreg QC Valid YES; Urine Pregnancy NEGATIVE (NEGATIVE)
[2023-02-10 03:03] LABS: Bacteria Urine None Seen (None Seen); Hyaline Casts Urine 0-2 /LPF (0-2); RBC Urine 0-2 /HPF (0-2); Squamous Epithelial Cell Urine 0-2 /HPF (0-2); UACC Culture Trigger YES; WBC Urine 0-5 /HPF (0-5)
[2023-02-10 03:51] VITALS: BP 137/82; PULSE 76; RESP 16; TEMP 36.2; O2SAT 99
== END 2023-02-10 04:40 | disposition home or self-care (01) ==
PROVIDERS: Emergency Provider Emergency Medicine
DX: G44.209 Tension-type headache, unspecified, not intractable (principal)
CPT/HCPCS: 36415; 70450; 80048; 80076; 81001; 81025; 83690; 85025; 87086; 99284

== ENCOUNTER 2023-02-14 10:07 | Outpatient (AMB) | payer OTHER, SELFPAY ==
--- NOTE | 2023-02-14 10:17 | A.OFFPC_ITS ---
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 Top Taper Machine Required: Yes Accompanied by: Self / Same As Patient Allergies amoxicillin [AMOXICILLIN] Allergy (Unknown, Verified 10/16/23 10:33) UNKNOWN clavulanic acid [From Augmentin] Allergy (Unknown, Verified 10/16/23 10:33) Unknown cyclobenzaprine [From Flexeril] Allergy (Verified 10/16/23 10:33) Palpitations escitalopram Allergy (Verified 10/16/23 10:33) Palpitations lorazepam [From Ativan] Allergy (Verified 10/16/23 10:33) Palpitations Medication List - Last Reconciled 02/14/23 by Jeffy Gutierrez MD ferrous sulfate 325 mg PO DAILY 90 days mineral oil 118 mL DC DAILY PRN naproxen 500 mg PO BID PRN 7 days omeprazole magnesium (Prilosec OTC) 20 mg PO BID ondansetron 4 mg PO Q6H PRN polyethylene glycol 3350 (Miralax) 17 grams PO BID sumatriptan succinate 50 mg PO Q2-4H PRN Tobacco use date assessed: 02/14/23 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 Details Patient comes in today to establish care - is a new patient to the practice States that her previous PCP is in [place] ([facility]) but she does not rem ember the name of her doctor States that she's always had problems getting an appointment with her doctor whenever she needed to be seen Relates (+) on and off headaches for a while now - notes that she sometimes feel nauseous and bright lights seem to bother her a lot when she has headaches lately States that she sometimes feel like her blood sugar gets very low as she would suddenly feel very weak and her symptoms would slowly subside as soon as she gets something sweet to drink; is not sure if this is also what is triggering her headaches Denies any dizziness Denies any chest pains, no SOB No vomiting, no abdominal pain but states that even with her current Rx, she still experiences frequent sensations of heartburns often Has also been experiencing increased constipation lately; would sometimes notice some blood in her stools, especially after some heavy straining during bowel movements Denies any acute urinary symptoms but reports that her menstrual periods are often heavy and that she sometimes has 2 periods a month ever since she started with her periods at 8 y/o [facility] Medical History Breast pain, left Overweight (BMI 25.0-29.9) Heavy menses Chronic constipation GERD without esophagitis Anemia HTN (hypertension) Anxiety Surgical History H/O tooth extraction (~12/10/22) H/O: Family History Paternal Aunt Breast cancer, Onset Age: 35 Maternal Aunt Breast cancer, Onset Age: 40 Other Diabetes High cholesterol Hypertension Social History Housing: House Alcohol intake: never Patient Tobacco Use Status: Never used Tobacco e-Cigarette/Vaping Use: Never Used service: No Current occupational status: unemployed Cognitive needs: No Hearing needs: No Vision needs: No Questionnaire PHQ-9 Over the last 2 weeks, how often have you been bothered by any of the following problems? 1. Little interest or pleasure in doing things: not at all 2. Feeling down, depressed, or hopeless: not at all 3. Trouble falling or staying asleep, or sleeping too much: not at all 4. Feeling tired or having little energy: not at all 5. Poor appetite or overeating: not at all 6. Feeling bad about yourself - or that you are a failure or have let yourself o r your family down: not at all 7. Trouble concentrating on things, such as reading the newspaper or watching television: not at all 8. Moving or speaking so slowly that other people could have noticed. Or the opposite - being so fidgety or restless that you have been moving around a lot more than usual: not at all 9. Thoughts that you would be better off or of hurting yourself in some way: not at all Total score: 0 Depression Screening Interpretation: Negative 33055 - PHQ-9 Billing: Yes Source: Developed by Drs. Fabio Johnson, Trinity Anand, Neymar Peterson and colleagues, with an educational sherley from [employer]. Thrive Questionnaire Date Thrive assessed: 02/14/23 I am a: Patient What is your living situation today?: I have a steady place to live Within the past 12 months, did the food you bought not last and you didn't have the money to get more?: Never true Within the past 12 months, did you worry whether your food would run out before you got money to buy more?: Never true Do you have trouble paying for medicines?: No Do you have trouble getting transportation to medical appointments?: No Do you have trouble paying your heating and electricity bill?: No Do you have trouble taking care of your child, family member or friend?: No Do you have trouble with day-to-day activities such as bathing, preparing meals, shopping, managing finances, etc.?: No Are you currently unemployed and looking for a job?: No Currently or been in a relationship where the following occur: no concerns reported AUDIT C Alcohol Use Questionnaire (AUDIT-C) 1. How often do you have a drink containing alcohol?: Never Total Score: 0 Score Reviewed/Action Taken: Yes YULIYA-7 AMB Questionnaire YULIYA-7 Feeling nervous, anxious, or on edge: 0 = Not at all Not being able to stop or control worryin = Not at all Worrying too much about different things: 0 = Not at all Trouble relaxin = Not at all Being so restless that it is hard to sit still: 0 = Not at all Becoming easily annoyed or irritable: 0 = Not at all Feeling afraid as if something awful might happen: 0 = Not at all Total YULIYA-7 score (0-4 normal; 5-9 mild; 10-14 moderate; 15-21 severe): 0 Source: Developed by Drs. Fabio Johnson, Trinity Anand, Neymar Peterson and colleagues, with an educational sherley from [employer]. Review of Systems Const Denies chills, Reports fatigue, Denies fever(s) and Reports headache(s) (recurrent - associated with nausea; no photophobia but sees spots ) Eyes Denies blurry vision and Reports spots in vision (during bouts of headaches) ENT Denies dysphagia, Reports dizziness (on and off), Denies otalgia, Reports headache(s) (recurrent - associated with nausea; no photophobia but sees spots ), Denies odynophagia, Denies sinus pain and Denies sore throat Card Denies chest pain, Denies palpitations and Denies dyspnea Resp Denies cough and Denies dyspnea GI Reports abdominal pain (on and off, over the epigastric area), Reports hematochezia (at times), Reports constipation (increased; chronic), Denies dysphagia, Reports heartburn (recurrent), Denies diarrhea, Reports nausea (on and off, mostly with headaches), Denies odynophagia and Denies vomiting Reports abnormal menses (has periods twice a month often), Denies difficulty voiding, Denies nocturia, Reports menorrhagia and Denies dysuria Musc Denies arthralgias Skin/Breast Denies rash Neuro Reports dizziness (on and off) and Reports headache(s) (recurrent - associated with nausea; no photophobia but sees spots ) Endo Reports fatigue and Denies palpitations Physical exam (Primary Care) Vital Signs: Last Vital Signs Pulse 80 02/14/23 10:18 BP 142/90 H 02/14/23 10:18 Pulse Ox 99 02/14/23 10:18 Oxygen Delivery Method Room Air 02/14/23 10:18 BMI result Body Mass Index 29.3 Tobacco/Smoking Status: Tobacco use Status Tobacco use date assessed 02/14/23 02/14/23 10:34 Patient Tobacco Use Status Never used Tobacco 02/14/23 10:34 e-Cigarette/Vaping Use Never Used 02/14/23 10:34 PHQ-9: PHQ-9 Score PHQ-9: Total score 0 02/14/23 12:47 Depression Screening Interpretation: Negative Thrive Assessment: Date of Thrive Assessment Date Thrive assessed 02/14/23 02/14/23 10:34 Currently or been in a relationship where the following occur: no concerns reported Const General: no acute distress and alert HENMT Ears: TM's normal bilaterally and EAC's normal Throat: Yes posterior oropharynx normal and Yes tonsils normal (no TP congestion) Neck Neck: Yes no lymphadenopathy and Yes supple Thyroid: Thyroid normal Resp Auscultation: clear to auscultation bilaterally, no rales and no wheezes Cardio Rate: regular rate Rhythm: regular rhythm Heart sounds: no murmurs GI Palpation (GI): Soft to palpation, nontender and No hepatosplenomegaly present Auscultation: normal bowel sounds Back/Spine/Pelvis Thoracic/Lumbar Spine: thoracic and lumbar spine normal to inspection Skin General skin exam: no rashes or lesions noted Extrem General: Yes no clubbing, cyanosis or edema Assessment and Plan Assessment & Plan (1) Frequent headaches: Code(s): R51.9 - Headache, unspecified Plan: Suspect migraine headaches Patient has had head CT done in the ER in August 2022 and more recently on 02/10/23 - both head CT came back negative Will start her on a trial of Sumatriptan 50 mg PRN as instructed Will refer her to neurology for further evaluation and management (2) GERD without esophagitis: Code(s): K21.9 - Gastro-esophageal reflux disease without esophagitis Plan: Discussed dietary restrictions Will send her for an upper GI series for further evaluation Continue Omeprazole 20 mg BID for now (3) Chronic constipation: Code(s): K59.09 - Other constipation Plan: States that she's had problems with constipation all her life Discussed increased oral fluids and dietary fiber Continue Miralax 17 gm QD; patient also takes Mineral oil DC daily PRN for increased constipation Advised that the iron tablets which she will be started on for her anemia will also most likely make her more constipated Will go ahead and refer her to GI for further management of her chronic constipation (4) Menometrorrhagia: Code(s): N92.1 - Excessive and frequent menstruation with irregular cycle Plan: States that she's had heavy menstrual bleeding and sometimes has 2 periods a mo nth ever since she had her menstrual period at age 8 Will send her for pelvic US for further evaluation Per request, will also refer her to OB-Chief Quality Officer for further evaluation and management (5) Anemia: Code(s): D64.9 - Anemia, unspecified Qualifiers: Anemia type: unspecified type Qualified Code(s): D64.9 - Anemia, unspecified Plan: Is most likely due to a combination of iron deficiency and blood loss from her heavy periods Will send her for some labs for anemia work up Will start her for now on Ferrous Sulfate 325 mg QD (6) Multiple episodes of hypoglycemia: Code(s): E16.2 - Hypoglycemia, unspecified Plan: Will send her for some labs DALIA for further evaluation (7) Overweight (BMI 25.0-29.9): Code(s): E66.3 - Overweight Plan: Discussed diet/exercise as tolerated/lose weight Plan Follow up in 2 months Orders: Orders [place] upper GI series 02/14/23 K21.9 - Gastro-esophageal reflux disease without esophagitis Complete Blood Count Auto Diff 02/14/23 I10 - Essential (primary) hypertension Vitamin B12 and Folate 02/14/23 E53.8 - Deficiency of other specified B group vitamins Hemoglobin A1c 02/14/23 R73.01 - Impaired fasting glucose IRON PROFILE 02/14/23 D50.9 - Iron deficiency anemia, unspecified TSH reflex Free T4 02/14/23 E78.00 - Pure hypercholesterolemia, unspecified Vitamin D 25-OH Total 02/14/23 E55.9 - Vitamin D deficiency, unspecified Insulin Auto Antibody 02/14/23 E16.1 - Other hypoglycemia Erythrocyte Sedimentation Rate 02/14/23 R51.9 - Headache, unspecified Referrals Neurology Referral R51.9 - Headache, unspecified Gastroenterology Referral K59.09 - Other constipation, K21.9 - Gastro- esophageal reflux disease without esophagitis CERTIFIER Referral N92.0 - Excessive and frequent menstruation with regular cycle, N92.1 - Excessive and frequent menstruation with irregular cycle Medications: New ferrous sulfate 325 mg PO DAILY 90 tabs 1RF 90 days D64.9 - Anemia, unspecified sumatriptan succinate do not exceed 4 doses per 24 hrs 50 mg PO Q2-4H PRN 10 tabs 1RF migraine headache Discontinued lorazepam Discontinued Reason: No Longer Medically Relevant 0.5 mg PO BID PRN 10 tabs 0RF anxiety Coding Level of Care Code New Pt Level 4 (63450) Diagnoses Frequent headaches R51.9 GERD without esophagitis K21.9 Chronic constipation K59.09 Menometrorrhagia N92.1 Anemia, unspecified type D64.9 Anemia type: unspecified type Multiple episodes of hypoglycemia E16.2 Overweight (BMI 25.0-29.9) E66.3
[2023-02-14 10:18] VITALS: BP 142/90; PULSE 80; O2SAT 99; BMI 29.3
== END 2023-02-14 11:22 | disposition home or self-care (01) ==
LOC: HO.HMGH 10:07
PROVIDERS: PCP Internal Medicine; Visit Provider Internal Medicine
DX: R51.9 Headache, unspecified (principal); K21.9 Gastro-esophageal reflux disease without esophagitis; K59.09 Other constipation; N92.1 Excessive and frequent menstruation with irregular cycle; D64.9 Anemia, unspecified; E16.2 Hypoglycemia, unspecified; E66.3 Overweight
CPT/HCPCS: 99204

== ENCOUNTER 2023-02-14 11:25 | Outpatient (REF) | payer OTHER, SELFPAY ==
[2023-02-14 11:49] LABS: MANUAL DIFF FLAG NO
[2023-02-14 12:09] LABS: Basophils Absolute Auto 0.1 X10*3/uL (0.0-0.2); Basophils Percent Auto 0.7 % (0-2); Eosinophils Absolute Auto 0.2 X10*3/uL (0.0-0.4); Eosinophils Percent Auto 1.6 % (0-4); Hematocrit 35.7 % (37.0-47.0); Hemoglobin 10.7 g/dl (12.0-16.0); Imm Gran Abs Auto 0.05 X10*3/uL (0.00-0.03); Imm Gran Pct Auto 0.5 % (0.0-0.4); Lymphocytes Absolute Auto 2.5 X10*3/uL (1.2-4.9); Lymphocytes Percent Auto 23.4 % (20-40); Mean Corpuscular Hemoglobin 21.1 pg (27.0-33.0); Mean Corpuscular Volume 70.3 fL (80.0-98.0); Mean Platelet Volume 10.9 fL (9.4-12.3); Monocytes Absolute Auto 0.6 X10*3/uL (0.1-1.2); Monocytes Percent Auto 5.5 % (2-11); Neutrophils Absolute Auto 7.3 x10*3/uL (2.0-8.3); Neutrophils Percent Auto 68.3 % (45-73); Platelet Count 294 X10*3/uL (160-400); Red Blood Count 5.08 X10*6/uL (4.20-5.50); Red Cell Distribution Width 15.5 % (11.0-16.0); White Blood Count 10.8 X10*3/uL (4.8-10.8)
[2023-02-14 12:25] LABS: Estimated Average Glucose 114 mg/dL; Hemoglobin A1c % 5.6 %
[2023-02-14 12:38] LABS: Iron 12 mcg/dL (30-160); Percent Iron Saturation 3 % (15-50); Total Iron Binding Capacity 403 mcg/dL (228-428); Unsaturated Iron Binding 391 ug/dL
[2023-02-14 12:47] LABS: Erythrocyte Sedimentation Rate 14 MM/HR (0-20)
[2023-02-14 13:07] LABS: Folate 8.6 ng/mL (> or = 4.0); TSH reflex Free T4 1.69 uIU/mL (0.32-4.0); Vitamin B12 762 pg/mL (200-900); Vitamin D 25-OH Total 21.9 ng/mL (>30)
[2023-02-22 02:59] LABS: Insulin Auto Antibody <0.4 U/mL (<0.4)
== END 2023-02-14 11:26 | disposition home or self-care (01) ==
LOC: HO.LAB 11:25
PROVIDERS: PCP Internal Medicine; Visit Provider Internal Medicine
DX: E53.8 Deficiency of other specified B group vitamins (principal); D50.9 Iron deficiency anemia, unspecified; E78.00 Pure hypercholesterolemia, unspecified; E16.1 Other hypoglycemia; R51.9 Headache, unspecified; R73.01 Impaired fasting glucose; E55.9 Vitamin D deficiency, unspecified; I10 Essential (primary) hypertension
CPT/HCPCS: 36415; 82306; 82607; 82746; 83036; 83540; 84443; 85025; 85652; 86337

== ENCOUNTER 2023-02-14 16:08 | Emergency (ER) | payer OTHER, SELFPAY ==
--- NOTE | 2023-02-14 16:15 | ED_ITS ---
HPI - Female Genitourinary General Chief complaint: Vaginal Bleeding Stated complaint: vaginal bleeding Time Seen by Provider: 02/14/23 19:04 Source: patient Mode of arrival: ambulatory Limitations: no limitations History of Present Illness HPI Narrative: 20-year-old female presents emergency department with anxiety near-syncope and vaginal bleeding. Patient states the past month she has had decreased appetite having a hard time eating and has been very worried about her daughter who has epilepsy and has been sick since mother's Day. She states she feels overwhelmed and now that she is under. She feels like she might pass out she lives alone with her 2 kids and is worried about them. She has she has not slept for a long time as well and states she has had large appears normal diffuse past 2 months. Last month she was seen in ultrasound labs which are all unremarkable. Patient presents again today with same complaints states that she is losing more blood than normal. She follow-up with a primary care doctor today and states she will sign given her period started yesterday and started having increased bleeding and came into the ED. MD elicited complaint: vaginal bleeding Related Data Previous Rx's Medication Instructions Recorded naproxen 500 mg tablet 500 mg PO BID PRN pain 7 days #14 12/19/22 tabs omeprazole magnesium 20 mg 20 mg PO BID #30 tabs 01/31/23 tablet,delayed release (Prilosec OTC) mineral oil 118 ml MO DAILY PRN constipation 02/03/23 #133 mL ondansetron 4 mg disintegrating 4 mg PO Q6H PRN nausea and 02/03/23 tablet vomiting #14 tabs polyethylene glycol 3350 17 17 g PO BID #238 grams 02/03/23 gram/dose oral powder (Miralax) ferrous sulfate 325 mg (65 mg 325 mg PO DAILY 90 days #90 tabs 02/14/23 iron) tablet sumatriptan succinate 50 mg tablet 50 mg PO Q2-4H PRN migraine 02/14/23 headache #10 tabs Allergies Allergy/AdvReac Type Severity Reaction Status Date / Time amoxicillin [AMOXICILLIN] Allergy Unknown UNKNOWN Verified 02/14/23 16:23 clavulanic acid Allergy Unknown Unknown Verified 02/14/23 16:23 [From Augmentin] cyclobenzaprine Allergy Palpitation Verified 02/14/23 16:23 [From Flexeril] s escitalopram Allergy Palpitation Verified 02/14/23 16:23 s lorazepam [From Ativan] Allergy Palpitation Verified 02/14/23 16:23 s Review of Systems Review of Systems: Review of systems: General: Patient denies any fever chills recent illness or falls Musculoskeletal: Denies back pain or body aches or other injuries HEENT: denies headache, runny nose, ear pain Respiratory: denies shortness of breath, cough Cardiovascular: no chest pain or palpitations : Vaginal bleeding denies dysuria, frequency Abdomen: no nausea vomiting denies abdominal pain Extremities: no swelling, no pain Skin: no diaphoresis Yes all other systems are reviewed and are negative PMFSH Past Medical History Medical History Anemia Anxiety Chronic constipation GERD without esophagitis Heavy menses HTN (hypertension) Overweight (BMI 25.0-29.9) Surgical History H/O: Family History Family History Other Diabetes High cholesterol Hypertension Social History Social History Housing: House Alcohol intake: never Patient Tobacco Use Status: Never used Tobacco e-Cigarette/Vaping Use: Never Used service: No Current occupational status: unemployed Cognitive needs: No Hearing needs: No Vision needs: No Physical Exam Vital Signs: Vital Signs: Last Vital Signs Temp 97.9 F 02/14/23 16:17 Pulse 89 02/14/23 16:17 Resp 18 02/14/23 16:17 BP 153/99 H 02/14/23 16:17 Pulse Ox 97 02/14/23 16:17 O2 Del Method Room Air 02/14/23 16:17 BMI result Body Mass Index 27.3 General: Well-appearing well-nourished in no signs of distress HEENT: Normocephalic atraumatic Neck: No signs of JVD, no masses no tenderness or lymphadenopathy Cardiovascular: Regular rate and rhythm Respiratory: Clear to auscultation bilaterally Abdomen: Soft nontender no masses Pelvic was performed cervical os was visualized os is closed no CMT Extremities: Normal pedal pulses no signs of edema Skin: Dry warm no rashes Back: No tenderness full ROM Course Course Course Narrative: RME - 27 yo who presents with a hx menometrorrhagia has had crampy pain, same pain since her last evaulation 2 wks ago. Reports heavier menstrual bleeding with blood clots. States weakness. Denies OCP, but states that she has tried to get treated. Had normal u/s in mid January. Plan: CBC to recheck H&H, pelvic exam, initiate OCP? Medical Decision Making Medical Decision Making [facility] Narrative: Concern for menometrorrhagia patient has had increased bleeding also dehydration or anemia. I think this is multifactorial with a lot of anxiety and increased sleeping decreased appetite. Pelvic exam is unremarkable I do not think this patient needs admission I think patient is safe to go home with follow-up her doctor who she saw earlier today to person symptoms seem to wax when she is very overwhelmed with her daughters understandably who have epilepsy she related the message to me multiple times she feels like she might pass out when she is having vaginal bleeding again I reassured her as her hemoglobin is stable here that she needs to follow-up with her doctor to get possible oral contraceptives that do not think the patient requires admission at this time. Differential Diagnosis Differential Diagnoses: The differential diagnosis associated with the presentation includes Anemia vaginal bleeding heavier periods Admission/Observation Consideration of admission/observation: Escalation of care including admission/observation considered Lab Data [facility] Lab Attestation statement: I reviewed the patient's lab results. 02/14/23 16:45 Labs: Lab Results 02/14/23 Range/Units 16:45 WBC 10.2 (4.8-10.8) X10*3/uL RBC 4.83 (4.20-5.50) X10*6/uL Hgb 10.3 L (12.0-16.0) g/dl Hct 34.6 L (37.0-47.0) % MCV 71.6 L (80.0-98.0) fL MCH 21.3 L (27.0-33.0) pg MCHC 29.8 L (31.0-35.0) g/dl RDW 15.7 (11.0-16.0) % Plt Count 286 (160-400) X10*3/uL MPV 11.4 (9.4-12.3) fL Immature Gran % (Auto) 0.4 (0.0-0.4) % Neut % (Auto) 70.9 (45-73) % Lymph % (Auto) 20.2 (20-40) % Yancey % (Auto) 5.5 (2-11) % Eos % (Auto) 2.2 (0-4) % Baso % (Auto) 0.8 (0-2) % Lymph # (Auto) 2.1 (1.2-4.9) X10*3/uL Yancey # (Auto) 0.6 (0.1-1.2) X10*3/uL Eos # (Auto) 0.2 (0.0-0.4) X10*3/uL Baso # (Auto) 0.1 (0.0-0.2) X10*3/uL Abs Immat Gran (auto) 0.04 H (0.00-0.03) X10*3/uL Absolute Neuts (auto) 7.3 (2.0-8.3) x10*3/uL Absolute Nucleated RBC 0.000 (0.0-0.012) X10*3/uL Nucleated RBC % (auto) 0.0 (0.0-0.2) /100WBC External Record Review External record reviewed: Inpatient record Patient negative ultrasound labs last month also had negative labs 2 days ago. Discharge Plan Discharge Clinical Impression: Menometrorrhagia, Vaginal bleeding, Near syncope Patient Disposition: Home, Self-Care Instructions: Menorrhagia (ED), Near Syncope (ED) Additional Instructions: Please call follow-up with your doctor so you can start on oral contraceptive pills to help make your periods more tolerable. Prescriptions: No Action naproxen 500 mg tablet 500 mg PO BID PRN (Reason: pain) 7 Days Qty: 14 0RF omeprazole magnesium [Prilosec OTC] 20 mg tablet,delayed release (DR/EC) 20 mg PO BID Qty: 30 0RF polyethylene glycol 3350 [Miralax] 17 gram/dose powder 17 g PO BID Qty: 238 0RF mineral oil Enema 118 ml MO DAILY PRN (Reason: constipation) Qty: 133 0RF Rx Instructions: discard any unused portion ondansetron 4 mg tablet,disintegrating 4 mg PO Q6H PRN (Reason: nausea and vomiting) Qty: 14 0RF ferrous sulfate 325 mg (65 mg iron) tablet 325 mg PO DAILY 90 Days Qty: 90 1RF sumatriptan succinate 50 mg tablet 50 mg PO Q2-4H PRN (Reason: migraine headache) Qty: 10 1RF Rx Instructions: do not exceed 4 doses per 24 hrs
[2023-02-14 16:17] VITALS: BP 153/99; PULSE 89; RESP 18; TEMP 36.6; O2SAT 97; BMI 27.3
[2023-02-14 16:49] LABS: MANUAL DIFF FLAG NO
[2023-02-14 17:00] LABS: Basophils Absolute Auto 0.1 X10*3/uL (0.0-0.2); Basophils Percent Auto 0.8 % (0-2); Eosinophils Absolute Auto 0.2 X10*3/uL (0.0-0.4); Eosinophils Percent Auto 2.2 % (0-4); Hematocrit 34.6 % (37.0-47.0); Hemoglobin 10.3 g/dl (12.0-16.0); Imm Gran Abs Auto 0.04 X10*3/uL (0.00-0.03); Imm Gran Pct Auto 0.4 % (0.0-0.4); Lymphocytes Absolute Auto 2.1 X10*3/uL (1.2-4.9); Lymphocytes Percent Auto 20.2 % (20-40); Mean Corpuscular HGB Conc 29.8 g/dl (31.0-35.0); Mean Corpuscular Hemoglobin 21.3 pg (27.0-33.0); Mean Corpuscular Volume 71.6 fL (80.0-98.0); Mean Platelet Volume 11.4 fL (9.4-12.3); Monocytes Absolute Auto 0.6 X10*3/uL (0.1-1.2); Monocytes Percent Auto 5.5 % (2-11); Neutrophils Absolute Auto 7.3 x10*3/uL (2.0-8.3); Neutrophils Percent Auto 70.9 % (45-73); Platelet Count 286 X10*3/uL (160-400); Red Blood Count 4.83 X10*6/uL (4.20-5.50); Red Cell Distribution Width 15.7 % (11.0-16.0); White Blood Count 10.2 X10*3/uL (4.8-10.8)
[2023-02-14 19:39] VITALS: BP 161/85; PULSE 80; RESP 18; TEMP 36.7; O2SAT 98
== END 2023-02-14 20:27 | disposition home or self-care (01) ==
PROVIDERS: Physician Assistant; Emergency Provider Student in an Organized Health Care Education/Training Program; PCP Internal Medicine
DX: N92.1 Excessive and frequent menstruation with irregular cycle (principal); R55 Syncope and collapse
CPT/HCPCS: 36415; 85025; 99283; 99284

== ENCOUNTER 2023-03-15 08:25 | Outpatient (REF) | payer OTHER, SELFPAY | END 2023-03-15 08:26 | disposition home or self-care (01) | LOC: HO.LNP 08:25 | PROVIDERS: PCP Internal Medicine; Visit Provider Obstetrics & Gynecology | DX: Z12.4 Encounter for screening for malignant neoplasm of cervix (principal); N93.9 Abnormal uterine and vaginal bleeding, unspecified | CPT/HCPCS: 0353U; 81025; 88142; 99202 ==

== ENCOUNTER 2023-03-15 09:00 | Outpatient (REF) | payer OTHER, SELFPAY ==
[2023-03-15 10:54] LABS: TSH reflex Free T4 2.16 uIU/mL (0.32-4.0)
[2023-03-17 02:43] LABS: Prolactin 10.9 ng/mL
== END 2023-03-15 09:01 | disposition home or self-care (01) ==
LOC: HO.LAB 09:00
PROVIDERS: PCP Internal Medicine; Visit Provider Obstetrics & Gynecology
DX: N93.9 Abnormal uterine and vaginal bleeding, unspecified (principal)
CPT/HCPCS: 84146; 84443; 84702; 85027

== ENCOUNTER 2023-03-22 12:01 | Outpatient (REF) | payer OTHER, SELFPAY ==
[2023-03-22 13:52] LABS: Appearance Urine Clear; Color Urine Yellow; Glucose Urine UA Negative (Negative); Leukocyte Esterase Urine Large (3+) (Negative); Nitrite Urine Negative (Negative); PH 6.5 (5.0-9.0); Specific Gravity - Urine 1.015 (1.005-1.025); UMIC TRIGGER UACC YES; Urine Blood Negative (Negative); Urine Ketones Negative (Negative); Urine Protein Negative (Neg-Trace)
[2023-03-22 13:55] LABS: Bacteria Urine None Seen (None Seen); Hyaline Casts Urine 0-2 /LPF (0-2); RBC Urine 0-2 /HPF (0-2); UACC Culture Trigger YES; WBC Urine >50 /HPF (0-5)
== END 2023-03-22 12:02 | disposition home or self-care (01) ==
LOC: HO.LAB 12:01
PROVIDERS: PCP Internal Medicine; Visit Provider Nurse Practitioner Family
DX: R82.90 Unspecified abnormal findings in urine (principal)
CPT/HCPCS: 81001; 87086; 87147

== ENCOUNTER 2023-03-23 14:10 | Outpatient (AMB) | payer OTHER, SELFPAY ==
--- NOTE | 2023-03-23 14:13 | A.OFFPC_ITS ---
Vital Signs 03/23/23 14:16 Height 5 ft Weight 150 lb 8 oz BMI 29.4 BP 140/80 H Blood Pressure Location Lt brachial Position Sitting Pulse 86 Pulse Source Pulse Oximeter Pulse Oximetry (%) 98 Intake Visit Reasons: abnormal glucose Intake Note: pt is here for f/u on abnormal glucose, pt also need refill on medications, ran out of amlodipine Projection Camera Operator Required: Yes Projection Camera Operator Language: Ukrainian Allergies amoxicillin [AMOXICILLIN] Allergy (Unknown, Verified 03/23/23 14:37) UNKNOWN clavulanic acid [From Augmentin] Allergy (Unknown, Verified 03/23/23 14:37) Unknown cyclobenzaprine [From Flexeril] Allergy (Verified 03/23/23 14:37) Palpitations escitalopram Allergy (Verified 03/23/23 14:37) Palpitations lorazepam [From Ativan] Allergy (Verified 03/23/23 14:37) Palpitations Medication List - Last Reconciled 03/23/23 by Jakob Torrez PA-C amlodipine 10 mg PO DAILY chlorthalidone 25 mg PO DAILY ferrous sulfate 325 mg PO DAILY 90 days fluconazole (Diflucan) 150 mg PO Q3D 2 doses omeprazole magnesium (Prilosec OTC) 20 mg PO BID ondansetron 4 mg PO Q6H PRN polyethylene glycol 3350 (Miralax) 17 grams PO BID sucralfate 10 mL PO QID sumatriptan succinate 50 mg PO Q2-4H PRN Tobacco use date assessed: 03/23/23 Dental Screening Dental Screen Date: 03/23/23 Did you have a dental visit in the last 12 months?: Yes Was dental information given to patient?: Patient has dentist HPI abnormal glucose HPI Details Patient is a 28-year-old Ukrainian-speaking female here today for a problem visit. Patient has a past medical history significant for GERD, constipation, overweight, hypertension Does report feeling somewhat dizzy, dry throat, urinary frequency. Most recent urinalysis showing 3+ leukocytes, was started on antibiotics though reports side effects. Story is somewhat inconsistent She believes she has low blood sugars though reports when checking her blood sugars they are 160. Most recent labs showing A1c of 5.7 and random blood sugar 95 in February of 2023. . Hypertension: Was on amlodipine 10 mg and thiazide diuretic. Reports having some low blood pressures likely related to her dizziness. [facility] Medical History (Updated 03/23/23 @ 15:41 by Jakob Torrez PA-C) Anemia Anxiety Chronic constipation GERD without esophagitis Heavy menses HTN (hypertension) Overweight (BMI 25.0-29.9) Surgical History H/O: Family History Other Diabetes High cholesterol Hypertension Social History Housing: House Alcohol intake: never Patient Tobacco Use Status: Never used Tobacco e-Cigarette/Vaping Use: Never Used service: No Current occupational status: unemployed Cognitive needs: No Hearing needs: No Vision needs: No Questionnaire Thrive Questionnaire Date Thrive assessed: 02/14/23 Review of Systems Const Denies headache(s) Eyes Denies loss of vision ENT Denies vertigo, Denies dizziness, Denies headache(s) and Denies sore throat Card Denies chest pain, Denies leg edema and Denies lightheadedness Resp Denies cough, Denies hemoptysis and Denies wheezing GI Denies abdominal pain, Denies melena, Denies constipation, Denies diarrhea and Denies vomiting Denies urinary frequency, Reports dysuria, Reports urinary hesitancy and Denies urinary urgency Musc Denies arthralgias, Denies joint swelling, Denies numbness and Denies tingling Neuro Denies Abnormal speech present, Denies behavioral changes, Denies vertigo, Denies dizziness, Denies headache(s), Denies loss of vision, Denies memory loss, Denies numbness and Denies tingling Psych Denies anxiety, Denies behavioral changes, Denies depression, Denies memory loss and Denies panic attacks Vinayak/Lymph Denies easy bleeding and Denies easy bruising Aller/Immun Denies wheezing Physical exam (Primary Care) Vital Signs: Last Vital Signs Pulse 86 03/23/23 14:16 BP 140/80 H 03/23/23 14:16 Pulse Ox 98 03/23/23 14:16 BMI result Body Mass Index 29.4 Tobacco/Smoking Status: Tobacco use Status Tobacco use date assessed 03/23/23 03/23/23 14:22 Patient Tobacco Use Status Never used Tobacco 03/23/23 14:22 e-Cigarette/Vaping Use Never Used 03/23/23 14:22 Thrive Assessment: Date of Thrive Assessment Date Thrive assessed 02/14/23 03/23/23 14:22 Const General: healthy appearing, no acute distress, alert and awake Nutritional Appearance: well nourished Orientation/consciousness: oriented to person, oriented to place and oriented to time HENMT Ears: TM's normal bilaterally General nose exam: Normal nasal mucous membranes and turbinates present Eyes Conjunctivae: conjunctivae normal Sclerae: sclerae normal Pupils: Equal, round and reactive pupils present Neck Neck: Yes no lymphadenopathy and Yes no JVD Thyroid: Thyroid normal Carotids: no bruits Resp Effort & Inspection: normal respiratory effort and not tachypneic Auscultation: no crackles, no rales, no rhonchi and no wheezes Cardio Rate: regular rate Rhythm: regular rhythm Heart sounds: no murmurs and normal S1 and S2 GI Palpation (GI): Soft to palpation, nontender, no hepatomegaly and no splenomegaly Auscultation: normal bowel sounds Skin General skin exam: no rashes or lesions noted and dry skin Neuro General: oriented to person, oriented to place and oriented to time Cranial nerves: Yes Equal, round and reactive pupils present Speech: No Abnormal speech present Gait exam (Neuro): Normal gait present Motor exam (neuro): no tremor noted Extrem Right upper extremity: full ROM Left upper extremity: full ROM Right lower extremity: full ROM; no edema Left lower extremity: full ROM; no edema Psych Mental Status: mental status grossly normal Speech and movement: Normal speech and movement present Affect: normal affect Attitude: cooperative Thought process: Normal thought process present Assessment and Plan Assessment & Plan (1) HTN (hypertension): Code(s): I10 - Essential (primary) hypertension Qualifiers: Hypertension type: primary hypertension Qualified Code(s): I10 - Essential (primary) hypertension Plan: Pressure the elevated today in office. She does report a home some blood pressures have been low. Will decrease her amlodipine for dose to 5 mg and advised to continue monitoring blood pressure at home with goal blood pressure to be below 140/90 and above 100/60 (2) Hyperglycemia: Code(s): R73.9 - Hyperglycemia, unspecified (3) UTI (urinary tract infection): Code(s): N39.0 - Urinary tract infection, site not specified Qualifiers: Urinary tract infection type: urethritis Qualified Code(s): N34.2 - Other urethritis Plan: Patient urinalysis still remains with 3+ leukocytes, still symptomatic with urinary frequency. Culture positive for strep. Will send Macrobid Orders: Orders Comprehensive [place]. Panel Fast Today R73.9 - Hyperglycemia, unspecified UA CC w/rflx Micro + Cult Today N39.0 - Urinary tract infection, site not specified, R30.0 - Dysuria Medications: New miscellaneous medical supply (Blood Pressure Cuff) As directed 1 ea 0RF I10 - Essential (primary) hypertension amlodipine 5 mg PO DAILY 30 days 30 tabs 3RF I10 - Essential (primary) hypertension nitrofurantoin monohyd/m-cryst 100 mg (Macrobid) must administer with a meal/food 100 mg PO Q12H 3 days 6 caps 0RF N39.0 - Urinary tract infection, site not specified Coding Level of Care Code Est Pt Level 4 (00982) Diagnoses HTN (hypertension) I10 Hypertension type: primary hypertension Hyperglycemia R73.9 UTI (urinary tract infection) N34.2 Urinary tract infection type: urethritis
[2023-03-23 14:16] VITALS: BP 140/80; PULSE 86; O2SAT 98; BMI 29.4
== END 2023-03-23 14:58 | disposition home or self-care (01) ==
PROVIDERS: PCP Internal Medicine; Visit Provider Physician Assistant
DX: I10 Essential (primary) hypertension (principal); R73.9 Hyperglycemia, unspecified; N34.2 Other urethritis
CPT/HCPCS: 99214

== ENCOUNTER 2023-03-24 01:13 | Emergency (ER) | payer OTHER, SELFPAY ==
[2023-03-24 01:28] LABS: Glucose, Whole Blood 67 mg/dL (60-115)
[2023-03-24 01:30] VITALS: BP 140/90; BP 153/110; PULSE 100; PULSE 128; RESP 16; TEMP 37.1; O2SAT 100; O2SAT 99; BMI 29.3
[2023-03-24 01:34] VITALS: BP 153/110; PULSE 128; RESP 16; TEMP 37.1; O2SAT 99
[2023-03-24] MEDS: Ondansetron ODT 4 MG TAB.RAPDIS SUBLINGUAL (01:43)
[2023-03-24 01:55] LABS: MANUAL DIFF FLAG NO
--- NOTE | 2023-03-24 01:55 | PC.NURSE ---
Pt presents to ER via EMS complaining of nausea/vomiting. Pt presents A&Ox4, GCS 15, with warm, dry skin. Pt has two young children with her. Pt has hx of diabetes. She woke up tonight not feeling right and discovered her POC was 67. Pt was dizzy with blurry vision, needed assistance to administer half a dose of glucagon Subcut. at home and POC increased to 160. Pt remained nauseas, dizzy, feeling her heart in her throat, and a sharp chest pain, mostly to the right side.Pt called EMS and POC was82. Upon arrival at ER, POC was 67. 20g IV was inserted in the left AC, blood was drawn and sent to lab. Pt was given cranberry juice. Pt waiting to be seen by provider at this time.
[2023-03-24] MEDS: 0.9 % Sodium Chloride 1,000 ML 999 ML IV (02:06)
[2023-03-24 02:15] LABS: Basophils Absolute Auto 0.1 X10*3/uL (0.0-0.2); Basophils Percent Auto 0.6 % (0-2); Eosinophils Absolute Auto 0.2 X10*3/uL (0.0-0.4); Eosinophils Percent Auto 1.7 % (0-4); Hematocrit 34.7 % (37.0-47.0); Hemoglobin 10.2 g/dl (12.0-16.0); Imm Gran Abs Auto 0.03 X10*3/uL (0.00-0.03); Imm Gran Pct Auto 0.2 % (0.0-0.4); Lymphocytes Absolute Auto 3.5 X10*3/uL (1.2-4.9); Lymphocytes Percent Auto 25.5 % (20-40); Mean Corpuscular HGB Conc 29.4 g/dl (31.0-35.0); Mean Corpuscular Volume 71.4 fL (80.0-98.0); Mean Platelet Volume 11.2 fL (9.4-12.3); Monocytes Absolute Auto 0.9 X10*3/uL (0.1-1.2); Monocytes Percent Auto 6.3 % (2-11); Neutrophils Absolute Auto 8.9 x10*3/uL (2.0-8.3); Neutrophils Percent Auto 65.7 % (45-73); Platelet Count 276 X10*3/uL (160-400); Red Blood Count 4.86 X10*6/uL (4.20-5.50); White Blood Count 13.6 X10*3/uL (4.8-10.8)
[2023-03-24 02:31] LABS: Glucose, Whole Blood 107 mg/dL (60-115)
[2023-03-24 03:20] LABS: Alanine Aminotransferase 11 U/L (0-31); Albumin Level 4.2 g/dL (3.5-5.0); Alkaline Phosphatase 68 U/L (39-117); Aspartate Amino Transferase 13 U/L (5-31); Bilirubin Total 0.2 mg/dL (0.0-1.0); Blood Urea Nitrogen 10 mg/dL (9-16); Calcium 9.7 mg/dL (8.4-10.2); Chloride 105 mmol/L (96-108); Creatinine Clr Calc Pharmacy 97.8; Estimated Glomerular Filt Rate > 60; Glucose Random 82 mg/dL (60-115); Potassium 4.1 mmol/L (3.3-5.1); Sodium 141 mmol/L (135-145); Total Protein 7.3 g/dL (6.5-8.0)
[2023-03-24 03:22] VITALS: BP 135/91; PULSE 79; RESP 18; O2SAT 98
[2023-03-24 03:43] LABS: Influenza A PCR NEGATIVE (Negative); Influenza B PCR NEGATIVE (Negative); Resp Syncy Virus RNA Qual PCR NEGATIVE (Negative); SARS COV2 PCR INHOUSE NEGATIVE (Negative)
--- NOTE | 2023-03-24 04:03 | ED.NAVMDI ---
HPI - Nausea/Vomiting/Diarrhea General Chief complaint: Nausea/Vomiting/Diarrhea Stated complaint: Nausea/Vomitting Time Seen by Provider: 03/24/23 03:34 Source: patient, EMS and parts interpreter Mode of arrival: EMS History of Present Illness HPI Narrative: 38-year-old female with history and clinical presentation of recurrent hypoglycemia of unknown etiology and she states that is currently being worked up. Patient states that she began having cold sweats and a foggy head indicating that her sugar was likely low and administered 1 of her glucose gone shots to her abdomen and called EMS. Patient also developed a couple of episodes of nausea and vomiting. Related Data Home Medications Medication Instructions Recorded Confirmed sucralfate 100 mg/mL oral 10 ml PO QID 03/23/23 03/23/23 suspension Previous Rx's Medication Instructions Recorded omeprazole magnesium 20 mg 20 mg PO BID #30 tabs 01/31/23 tablet,delayed release (Prilosec OTC) ondansetron 4 mg disintegrating 4 mg PO Q6H PRN nausea and 02/03/23 tablet vomiting #14 tabs polyethylene glycol 3350 17 17 g PO BID #238 grams 02/03/23 gram/dose oral powder (Miralax) ferrous sulfate 325 mg (65 mg 325 mg PO DAILY 90 days #90 tabs 02/14/23 iron) tablet sumatriptan succinate 50 mg tablet 50 mg PO Q2-4H PRN migraine 02/14/23 headache #10 tabs fluconazole 150 mg tablet 150 mg PO Q3D 2 doses #2 tabs 03/17/23 (Diflucan) amlodipine 5 mg tablet 5 mg PO DAILY 30 days #30 tabs 03/23/23 miscellaneous medical supply #1 ea 03/23/23 (Blood Pressure Cuff) nitrofurantoin 100 mg PO Q12H 3 days #6 caps 03/23/23 monohydrate/macrocrystals 100 mg capsule (Macrobid) Allergies Allergy/AdvReac Type Severity Reaction Status Date / Time amoxicillin [AMOXICILLIN] Allergy Unknown UNKNOWN Verified 03/23/23 14:37 clavulanic acid Allergy Unknown Unknown Verified 03/23/23 14:37 [From Augmentin] cyclobenzaprine Allergy Palpitation Verified 03/23/23 14:37 [From Flexeril] s escitalopram Allergy Palpitation Verified 03/23/23 14:37 s lorazepam [From Ativan] Allergy Palpitation Verified 03/23/23 14:37 s Review of Systems Review of Systems: Pertinent positives and negatives as stated in HPI [facility] Past Medical History Source: nursing notes reviewed Medical History Anemia Anxiety Chronic constipation GERD without esophagitis Heavy menses HTN (hypertension) Overweight (BMI 25.0-29.9) Surgical History H/O: Family History Family History Other Diabetes High cholesterol Hypertension Social History Social History Housing: House Alcohol intake: never Patient Tobacco Use Status: Never used Tobacco Smoked in Last 30 Days: No e-Cigarette/Vaping Use: Never Used Use of substances other than those prescribed or required for medical reasons: No Advance Directives: No Advance Directives Information Provided: No Patient : No service: No Current occupational status: unemployed Cognitive needs: No Hearing needs: No Vision needs: No Physical Exam Vital Signs: Vital Signs: Last Vital Signs Temp 98.0 F 03/24/23 05:14 Pulse 66 03/24/23 05:14 Resp 17 03/24/23 06:19 BP 141/83 H 03/24/23 06:19 Pulse Ox 97 03/24/23 06:19 O2 Del Method Room Air 03/24/23 06:19 BMI result Body Mass Index 29.3 VITAL SIGNS: Reviewed. GENERAL: Well developed, well nourished, in no acute distress. HEAD: Normocephalic/atraumatic EYES: PERRLA, EOMI EARS: Ext canals without abnormality, TMs non-bulging and non-erythematous NOSE: Nares patent bilateral OROPHARYNX: no oral lesions noted, posterior pharynx clear and non-erythematous without noted tonsillar enlargement/erythema/exudates NECK: Supple, no adenopathy LUNGS: Normal breath sounds. No adventitious sounds or accessory muscle use. SpO2<98> CARDIOVASCULAR: Regular rate and rhythm without noted murmurs ABDOMEN: Soft, non-tender, non-distended with bowel sounds. MUSCULOSKELETAL: No tenderness, deformities, or effusions noted on gross inspection. EXTREMITIES: No cyanosis, clubbing or edema. SKIN: Inspection of the skin reveals no rashes NEUROLOGIC: Alert and oriented x 4. Strength and sensation to light touch were grossly intact x 4. Medications Administered Discontinued Medications Generic Name Dose Route Start Last Admin Trade Name Bob PRN Reason Stop Dose Admin Sodium Chloride 1,000 mls @ 999 mls/hr 03/24/23 02:15 03/24/23 03:07 Ns IV 03/24/23 03:15 Infused .Q1H1M HENRY Infusion Ondansetron HCl 4 mg 03/24/23 01:36 03/24/23 01:43 Ondansetron Odt 4 Mg Tab.Rapdis SUBLINGUAL 03/24/23 01:37 4 mg ONCE ONE Administration Medical Decision Making Medical Decision Making [facility] Narrative: This is a 28-year-old female who arrives via EMS with her children, having had episodes of low sugar level that is currently being worked up, she responded well to her glucagon as well as additional interventions such as juice. She denies any recent fever and no nausea or vomiting prior to the hypoglycemic episode but does report urinary pain/burning. I reviewed the patient's previous chart from 03/22 which indicated leukocyte esterase with significant amount of white blood cells but no bacteria and minimal squamous epithelium and at that time was treated with Macrobid. The primary care provider documents that patient was noted to be hyperglycemic and primary care provider reports inconsistencies in glucose levels. Patient denies any use of insulin so unclear etiology of hypoglycemia and I did review a lab analysis for insulin autoantibody which was undetectable. Will perform lab work and trend blood sugars. There is a noted leukocytosis although patient is afebrile, chronically stable microcytic anemia (I have noted that patient is on iron supplementation). Chemistries are grossly within normal limits and viral studies are negative. My interpretation is that the leukocytosis is a stress leukocytosis from the hypoglycemic episode. She is otherwise discharged home in stable condition with strict instructions to follow-up with primary care provider on Monday morning for further outpatient management and evaluation. Differential Diagnosis Differential Diagnoses: The differential diagnosis associated with the presentation includes Please see the discussion above Admission/Observation Consideration of admission/observation: Escalation of care including admission/observation considered Lab Data [facility] Lab Attestation statement: I reviewed the patient's lab results. Please see the discussion above 03/24/23 01:50 03/24/23 01:50 Labs: Lab Results 03/24/23 03/24/23 03/24/23 Range/Units 01:22 01:50 01:50 WBC 13.6 H (4.8-10.8) X10*3/uL RBC 4.86 (4.20-5.50) X10*6/uL Hgb 10.2 L (12.0-16.0) g/dl Hct 34.7 L (37.0-47.0) % MCV 71.4 L (80.0-98.0) fL MCH 21.0 L (27.0-33.0) pg MCHC 29.4 L (31.0-35.0) g/dl RDW 16.0 (11.0-16.0) % Plt Count 276 (160-400) X10*3/uL MPV 11.2 (9.4-12.3) fL Immature Gran % (Auto) 0.2 (0.0-0.4) % Neut % (Auto) 65.7 (45-73) % Lymph % (Auto) 25.5 (20-40) % Boundary % (Auto) 6.3 (2-11) % Eos % (Auto) 1.7 (0-4) % Baso % (Auto) 0.6 (0-2) % Lymph # (Auto) 3.5 (1.2-4.9) X10*3/uL Boundary # (Auto) 0.9 (0.1-1.2) X10*3/uL Eos # (Auto) 0.2 (0.0-0.4) X10*3/uL Baso # (Auto) 0.1 (0.0-0.2) X10*3/uL Abs Immat Gran (auto) 0.03 (0.00-0.03) X10*3/uL Absolute Neuts (auto) 8.9 H (2.0-8.3) x10*3/uL Absolute Nucleated RBC 0.000 (0.0-0.012) X10*3/uL Nucleated RBC % (auto) 0.0 (0.0-0.2) /100WBC Sodium 141 (135-145) mmol/L Potassium 4.1 (3.3-5.1) mmol/L Chloride 105 (96-108) mmol/L BUN 10 (9-16) mg/dL Creatinine 0.73 (0.5-1.4) mg/dL Estim Creat Clear Calc 97.8 Estimated GFR > 60 POC Glucose 67 (60-115) mg/dL Random Glucose 82 (60-115) mg/dL Calcium 9.7 (8.4-10.2) mg/dL Total Bilirubin 0.2 (0.0-1.0) mg/dL AST 13 (5-31) U/L ALT 11 (0-31) U/L Alkaline Phosphatase 68 (39-117) U/L Total Protein 7.3 (6.5-8.0) g/dL Albumin 4.2 (3.5-5.0) g/dL Urine Color Urine Appearance Urine pH (5.0-9.0) Ur Specific [place] (1.005-1.025) Urine Protein (Neg-Trace) mg/dL Urine Glucose (UA) (Negative) mg/dL Urine Ketones (Negative) mg/dL Urine Blood (Negative) Urine Nitrite (Negative) Ur Leukocyte Esterase (Negative) Urine RBC (0-2) /HPF Urine WBC (0-5) /HPF Ur Squamous Epith Cells (0-2) /HPF Urine Bacteria (None Seen) Hyaline Casts (0-2) /LPF Urine Test (NEGATIVE) Influenza Type A (PCR) (Negative) Influenza Type B (PCR) (Negative) RSV RNA Qual (PCR) (Negative) SARS-CoV-2 RNA (RT-PCR) (Negative) 03/24/23 03/24/23 03/24/23 Range/Units 02:27 02:52 04:05 WBC (4.8-10.8) X10*3/uL RBC (4.20-5.50) X10*6/uL Hgb (12.0-16.0) g/dl Hct (37.0-47.0) % MCV (80.0-98.0) fL MCH (27.0-33.0) pg MCHC (31.0-35.0) g/dl RDW (11.0-16.0) % Plt Count (160-400) X10*3/uL MPV (9.4-12.3) fL Immature Gran % (Auto) (0.0-0.4) % Neut % (Auto) (45-73) % Lymph % (Auto) (20-40) % Bound[place] % (Auto) (2-11) % Eos % (Auto) (0-4) % Baso % (Auto) (0-2) % Lymph # (Auto) (1.2-4.9) X10*3/uL [place] # (Auto) (0.1-1.2) X10*3/uL Eos # (Auto) (0.0-0.4) X10*3/uL Baso # (Auto) (0.0-0.2) X10*3/uL Abs Immat Gran (auto) (0.00-0.03) X10*3/uL Absolute Neuts (auto) (2.0-8.3) x10*3/uL Absolute Nucleated RBC (0.0-0.012) X10*3/uL Nucleated RBC % (auto) (0.0-0.2) /100WBC Sodium (135-145) mmol/L Potassium (3.3-5.1) mmol/L Chloride (96-108) mmol/L BUN (9-16) mg/dL Creatinine (0.5-1.4) mg/dL Estim Creat Clear Calc Estimated GFR POC Glucose 107 91 (60-115) mg/dL Random Glucose (60-115) mg/dL Calcium (8.4-10.2) mg/dL Total Bilirubin (0.0-1.0) mg/dL AST (5-31) U/L ALT (0-31) U/L Alkaline Phosphatase (39-117) U/L Total Protein (6.5-8.0) g/dL Albumin (3.5-5.0) g/dL Urine Color Urine Appearance Urine pH (5.0-9.0) Ur Specific [place] (1.005-1.025) Urine Protein (Neg-Trace) mg/dL Urine Glucose (UA) (Negative) mg/dL Urine Ketones (Negative) mg/dL Urine Blood (Negative) Urine Nitrite (Negative) Ur Leukocyte Esterase (Negative) Urine RBC (0-2) /HPF Urine WBC (0-5) /HPF Ur Squamous Epith Cells (0-2) /HPF Urine Bacteria (None Seen) Hyaline Casts (0-2) /LPF Urine Test (NEGATIVE) Influenza Type A (PCR) NEGATIVE (Negative) Influenza Type B (PCR) NEGATIVE (Negative) RSV RNA Qual (PCR) NEGATIVE (Negative) SARS-CoV-2 RNA (RT-PCR) NEGATIVE (Negative) 03/24/23 03/24/23 Range/Units 04:18 04:18 WBC (4.8-10.8) X10*3/uL RBC (4.20-5.50) X10*6/uL Hgb (12.0-16.0) g/dl Hct (37.0-47.0) % MCV (80.0-98.0) fL MCH (27.0-33.0) pg MCHC (31.0-35.0) g/dl RDW (11.0-16.0) % Plt Count (160-400) X10*3/uL MPV (9.4-12.3) fL Immature Gran % (Auto) (0.0-0.4) % Neut % (Auto) (45-73) % Lymph % (Auto) (20-40) % [place] % (Auto) (2-11) % Eos % (Auto) (0-4) % Baso % (Auto) (0-2) % Lymph # (Auto) (1.2-4.9) X10*3/uL [place] # (Auto) (0.1-1.2) X10*3/uL Eos # (Auto) (0.0-0.4) X10*3/uL Baso # (Auto) (0.0-0.2) X10*3/uL Abs Immat Gran (auto) (0.00-0.03) X10*3/uL Absolute Neuts (auto) (2.0-8.3) x10*3/uL Absolute Nucleated RBC (0.0-0.012) X10*3/uL Nucleated RBC % (auto) (0.0-0.2) /100WBC Sodium (135-145) mmol/L Potassium (3.3-5.1) mmol/L Chloride (96-108) mmol/L BUN (9-16) mg/dL Creatinine (0.5-1.4) mg/dL Estim Creat Clear Calc Estimated GFR POC Glucose (60-115) mg/dL Random Glucose (60-115) mg/dL Calcium (8.4-10.2) mg/dL Total Bilirubin (0.0-1.0) mg/dL AST (5-31) U/L ALT (0-31) U/L Alkaline Phosphatase (39-117) U/L Total Protein (6.5-8.0) g/dL Albumin (3.5-5.0) g/dL Urine Color Yellow Urine Appearance Hazy Urine pH 8.0 (5.0-9.0) Ur Specific [place] 1.015 (1.005-1.025) Urine Protein Negative (Neg-Trace) mg/dL Urine Glucose (UA) Negative (Negative) mg/dL Urine Ketones Negative (Negative) mg/dL Urine Blood Negative (Negative) Urine Nitrite Negative (Negative) Ur Leukocyte Esterase Large (3+) H (Negative) Urine RBC 0-2 (0-2) /HPF Urine WBC >50 H (0-5) /HPF Ur Squamous Epith Cells 3-5 (0-2) /HPF Urine Bacteria None Seen (None Seen) Hyaline Casts 3-5 (0-2) /LPF Urine Test NEGATIVE (NEGATIVE) Influenza Type A (PCR) (Negative) Influenza Type B (PCR) (Negative) RSV RNA Qual (PCR) (Negative) SARS-CoV-2 RNA (RT-PCR) (Negative) External Record Review External record reviewed: Office record, Outpatient record and Prior outpatient labs Chronic Conditions Patient?s care impacted by: Hypertension Discharge Plan Discharge Clinical Impression: Hypoglycemia Patient Disposition: Home, Self-Care Instructions: Non-diabetic Hypoglycemia (ED) Additional Instructions: 1. Resume all home medications as prescribed. 2. You will need to ensure that you keep plenty candy or snacks available in case you feel as though no your sugar is low once again. 3. Please follow-up with your primary care provider on Monday morning. Return to the ER for any worsening symptoms. Prescriptions: No Action fluconazole [Diflucan] 150 mg tablet 150 mg PO Q3D Qty: 2 0RF omeprazole magnesium [Prilosec OTC] 20 mg tablet,delayed release (DR/EC) 20 mg PO BID Qty: 30 0RF polyethylene glycol 3350 [Miralax] 17 gram/dose powder 17 g PO BID Qty: 238 0RF ondansetron 4 mg tablet,disintegrating 4 mg PO Q6H PRN (Reason: nausea and vomiting) Qty: 14 0RF ferrous sulfate 325 mg (65 mg iron) tablet 325 mg PO DAILY 90 Days Qty: 90 1RF sumatriptan succinate 50 mg tablet 50 mg PO Q2-4H PRN (Reason: migraine headache) Qty: 10 1RF Rx Instructions: do not exceed 4 doses per 24 hrs sucralfate 100 mg/mL suspension 10 ml PO QID (DME) Blood Pressure Cuff Misc See Rx Instructions .ROUTE .MEDSUPPLY Qty: 1 0RF Rx Instructions: As directed amlodipine 5 mg tablet 5 mg PO DAILY 30 Days Qty: 30 3RF nitrofurantoin monohyd/m-cryst [Macrobid] 100 mg capsule 100 mg PO Q12H 3 Days Qty: 6 0RF Rx Instructions: must administer with a meal/food Referrals: Jeffy Gutierrez MD [Primary Care Provider] -
[2023-03-24 04:29] LABS: Appearance Urine Hazy; Color Urine Yellow; Glucose Urine UA Negative (Negative); Leukocyte Esterase Urine Large (3+) (Negative); Nitrite Urine Negative (Negative); Specific Gravity - Urine 1.015 (1.005-1.025); UMIC TRIGGER UACC YES; Urine Blood Negative (Negative); Urine Ketones Negative (Negative); Urine Protein Negative (Neg-Trace)
[2023-03-24 04:31] LABS: UPreg QC Valid YES; Urine Pregnancy NEGATIVE (NEGATIVE)
[2023-03-24 04:36] LABS: Bacteria Urine None Seen (None Seen); RBC Urine 0-2 /HPF (0-2); UACC Culture Trigger YES; WBC Urine >50 /HPF (0-5)
[2023-03-24 05:14] VITALS: BP 132/84; PULSE 66; RESP 15; TEMP 36.7; O2SAT 98
[2023-03-24 05:20] LABS: Glucose, Whole Blood 91 mg/dL (60-115)
[2023-03-24 06:19] VITALS: BP 141/83; RESP 17; O2SAT 97
[2023-03-24 06:24] LABS: Glucose, Whole Blood 83 mg/dL (60-115)
[2023-03-24 06:25] LABS: Anion Gap 14 (12-20); Carbon Dioxide 27 mmol/L (22-29)
== END 2023-03-24 06:39 | disposition home or self-care (01) ==
PROVIDERS: Emergency Provider Student in an Organized Health Care Education/Training Program; PCP Internal Medicine
DX: E16.2 Hypoglycemia, unspecified (principal); R11.2 Nausea with vomiting, unspecified; Z20.822 Contact with and (suspected) exposure to COVID-19; Z20.828 Contact with and (suspected) exposure to other viral communicable diseases; Z79.899 Other long term (current) drug therapy
CPT/HCPCS: 0241U; 36415; 80053; 81001; 81025; 82947; 85025; 96360; 99284; 99285

== ENCOUNTER 2023-03-28 16:21 | Outpatient (AMB) | payer OTHER, SELFPAY ==
--- NOTE | 2023-03-28 16:25 | AM.OFFWIN_ITS ---
Intake Vital Signs 03/28/23 16:30 BP 120/80 Blood Pressure Location Rt brachial Position Sitting Pulse 78 Pulse Source Pulse Oximeter Pulse Oximetry (%) 97 Oxygen Delivery Method Room Air Intake Visit Reasons: EP STD? Intake Note: Patient here because her partner tested positive for herpes and she was advised to get checked. she has been having burning while urination and she has also had yellow discharge, vomiting and nausea. she is also experiencing chest pain and feels like her heart is racing. Patient Tobacco Use Status: Never used Tobacco Allergies amoxicillin [AMOXICILLIN] Allergy (Unknown, Verified 03/29/23 05:34) UNKNOWN clavulanic acid [From Augmentin] Allergy (Unknown, Verified 03/29/23 05:34) Unknown cyclobenzaprine [From Flexeril] Allergy (Verified 03/29/23 05:34) Palpitations escitalopram Allergy (Verified 03/29/23 05:34) Palpitations lorazepam [From Ativan] Allergy (Verified 03/29/23 05:34) Palpitations Medication List - Last Reconciled 03/29/23 by Amor eBrnabe MD amlodipine 5 mg PO DAILY 30 days ferrous sulfate 325 mg PO DAILY 90 days fluconazole (Diflucan) 150 mg PO Q3D 2 doses miscellaneous medical supply (Blood Pressure Cuff) As directed nitrofurantoin monohyd/m-cryst 100 mg (Macrobid) 100 mg PO Q12H 3 days omeprazole magnesium (Prilosec OTC) 20 mg PO BID ondansetron 4 mg PO Q6H PRN polyethylene glycol 3350 (Miralax) 17 grams PO BID sucralfate 10 mL PO QID sumatriptan succinate 50 mg PO Q2-4H PRN Do you need a note to return to daycare/school/sports/work: No HPI HPI Comments History of Present Illness0 Details 28-year-old female presents to the office for a sick visit. Patient wants to be checked for sexually transmitted disease. She found out that her has another sexual partner. informed her that he was diagnosed with herpes. Patient has no symptoms or lesions. History obtained through the medical practice administrator who was translating. No specific symptoms. Patient is reporting symptoms of bloating. [facility] Medical History Anemia Anxiety Chronic constipation GERD without esophagitis Heavy menses HTN (hypertension) Overweight (BMI 25.0-29.9) Surgical History H/O: Family History Other Diabetes High cholesterol Hypertension Social History Housing: House Alcohol intake: never Patient Tobacco Use Status: Never used Tobacco e-Cigarette/Vaping Use: Never Used service: No Current occupational status: unemployed Cognitive needs: No Hearing needs: No Vision needs: No Physical Exam Vital Signs: Last Vital Signs Pulse 78 03/28/23 16:30 BP 120/80 03/28/23 16:30 Pulse Ox 97 03/28/23 16:30 Oxygen Delivery Method Room Air 03/28/23 16:30 Const General: cooperative and healthy appearing Nutritional Appearance: well nourished Orientation/consciousness: patient oriented x3 Limitations: no limitations HEENT Head: Yes normal to inspection Eyes General: appearance normal, both eyes and all related structures Neck Neck: Yes normal visual inspection Chest Chest palpation & inspection: normal palpation of entire chest wall Resp Effort & Inspection: normal respiratory effort Neuro General: patient oriented x3 Assessment & Plan Assessment & Plan (1) Urethritis: Code(s): N34.2 - Other urethritis Plan: Most likely bloating symptoms unrelated to this. Since patient has no symptoms, will wait for the results of the testing. Patient was advised to use protection, i.e. barrier methods. Testing for STD ordered. Will call with the results. Orders: Orders HIV Ab/Ag 03/28/23 N34.2 - Other urethritis Syphilis Screen 03/28/23 N34.2 - Other urethritis Bacterial Vaginosis Panel 03/28/23 N34.2 - Other urethritis CT NG by PCR 03/28/23 N34.2 - Other urethritis Medications: Refilled omeprazole magnesium (Prilosec OTC) 20 mg PO BID 30 tabs 0RF Coding Level of Care Code Est Pt Level 3 (89236) Diagnoses Urethritis N34.2
[2023-03-28 16:30] VITALS: BP 120/80; PULSE 78; O2SAT 97
== END 2023-03-28 17:00 | disposition home or self-care (01) ==
PROVIDERS: PCP Internal Medicine; Visit Provider Internal Medicine
DX: N34.2 Other urethritis (principal)
CPT/HCPCS: 99213

== ENCOUNTER 2023-03-29 13:09 | Outpatient (REF) | payer OTHER, SELFPAY ==
[2023-03-30 14:06] LABS: BV Int Neg Control Negative (Negative); BV Int Pos Control Positive (Positive)
== END 2023-03-29 13:10 | disposition home or self-care (01) ==
LOC: HO.HMGCLNP 13:09
PROVIDERS: Visit Provider Internal Medicine
DX: N34.2 Other urethritis (principal)
CPT/HCPCS: 87480; 87510; 87660

== ENCOUNTER 2023-03-29 14:27 | Outpatient (REF) | payer OTHER, SELFPAY ==
[2023-03-29 20:41] LABS: Appearance Urine Clear; Color Urine Yellow; Glucose Urine UA Negative (Negative); Leukocyte Esterase Urine Large (3+) (Negative); Nitrite Urine Negative (Negative); PH 6.5 (5.0-9.0); UMIC TRIGGER UACC YES; Urine Blood Negative (Negative); Urine Ketones Negative (Negative); Urine Protein Negative (Neg-Trace)
[2023-03-29 23:56] LABS: UACC Culture Trigger YES; WBC Urine 0-5 /HPF (0-5)
[2023-03-29 23:57] LABS: Bacteria Urine Trace (None Seen); Hyaline Casts Urine 0-2 /LPF (0-2); RBC Urine 0-2 /HPF (0-2); Squamous Epithelial Cell Urine 0-2 /HPF (0-2); Trichomonas Urine Present
[2023-03-30 02:48] LABS: Alanine Aminotransferase 16 U/L (0-31); Albumin Level 4.6 g/dL (3.5-5.0); Alkaline Phosphatase 73 U/L (39-117); Anion Gap 14 (12-20); Aspartate Amino Transferase 16 U/L (5-31); Bilirubin Total 0.4 mg/dL (0.0-1.0); Blood Urea Nitrogen 13 mg/dL (9-16); Calcium 9.6 mg/dL (8.4-10.2); Carbon Dioxide 28 mmol/L (22-29); Chloride 99 mmol/L (96-108); Estimated Glomerular Filt Rate > 60; Glucose Fasting 95 mg/dL (60-99); Potassium 3.6 mmol/L (3.3-5.1); Sodium 137 mmol/L (135-145)
[2023-03-30 05:07] LABS: HIV AB/AG Nonreactive (Nonreactive); HIV Num 1 0.09 S/CO (0.00-0.99)
[2023-03-31 08:23] LABS: Syphilis Screen Nonreactive (Nonreactive)
== END 2023-03-29 14:28 | disposition home or self-care (01) ==
LOC: HO.LAB 14:27
PROVIDERS: Absent Provider Physician Assistant; PCP Internal Medicine; Visit Provider Internal Medicine
DX: R73.9 Hyperglycemia, unspecified (principal); N34.2 Other urethritis
CPT/HCPCS: 36415; 80053; 81001; 81003; 86780; 87086; 87147; 87389

== ENCOUNTER 2023-03-30 15:00 | Outpatient (AMB) | payer OTHER, SELFPAY ==
--- NOTE | 2023-03-30 15:02 | A.OFFVIS_ITS ---
Intake Vital Signs 03/30/23 15:14 Weight 328 lb 7.82 oz BP 153/77 H Blood Pressure Location Rt brachial Position Sitting Intake Visit Reasons: Mastodynia Intake Note: Patient is seen in office for evaluation and treatment of mastodynia. Patient c/o:Pain on Lt breast for 3m. States pain comes and goes. Noticed that nipples get darker and irritated as well. C/o itch that is worse on Lt nipple but feels like the itch is deep within tissue itself. First noticed itch 3wks ago. 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 Name: Aretha ROBLES Information Interpreted: non-clinical & clinical Accompanied by: Self / Same As Patient Allergies amoxicillin [AMOXICILLIN] Allergy (Unknown, Verified 03/30/23 15:16) UNKNOWN clavulanic acid [From Augmentin] Allergy (Unknown, Verified 03/30/23 15:16) Unknown cyclobenzaprine [From Flexeril] Allergy (Verified 03/30/23 15:16) Palpitations escitalopram Allergy (Verified 03/30/23 15:16) Palpitations lorazepam [From Ativan] Allergy (Verified 03/30/23 15:16) Palpitations Medication List - Last Reconciled 03/30/23 by Shar Dubon MD amlodipine 5 mg PO DAILY 30 days ferrous sulfate 325 mg PO DAILY 90 days fluconazole (Diflucan) 150 mg PO Q3D 2 doses miscellaneous medical supply (Blood Pressure Cuff) As directed nitrofurantoin monohyd/m-cryst 100 mg (Macrobid) 100 mg PO Q12H 3 days omeprazole magnesium (Prilosec OTC) 20 mg PO BID ondansetron 4 mg PO Q6H PRN polyethylene glycol 3350 (Miralax) 17 grams PO BID sucralfate 10 mL PO QID sumatriptan succinate 50 mg PO Q2-4H PRN HPI HPI Comments History of Present Illness Details 28-year-old female patient presenting with complaints of breast pain especially in the left breast. She also reports an itchy sensation involving both nipples on the inside. She denies any redness or other skin changes. An area of increased tenderness is noted in the left breast on recent physical examination. This was in the 7 o'clock position approximately 4 cm from the nipple. An ultrasound of the breast was requested however is not been performed by the time of this appointment. She denies a previous history of breast problems or breast surgery. She did have slow growth of the right breast during puberty. Family history is significant for a paternal developed breast cancer at the age of 35 and a maternal aunt developed breast cancer at the age of 40 subsequently underwent mastectomy. She is and breastfed both children for short period of time without much success. She denies a history of breast infections. [facility] Medical History (Updated 03/30/23 @ 15:41 by Shar Dubon MD) Anemia Anxiety Breast pain, left Chronic constipation GERD without esophagitis Heavy menses HTN (hypertension) Overweight (BMI 25.0-29.9) Surgical History H/O tooth extraction (~12/10/22) H/O: Family History Paternal Aunt Breast cancer, Onset Age: 35 Maternal Aunt Breast cancer, Onset Age: 40 Other Diabetes High cholesterol Hypertension Social History Housing: House Alcohol intake: never Patient Tobacco Use Status: Never used Tobacco e-Cigarette/Vaping Use: Never Used service: No Current occupational status: unemployed Cognitive needs: No Hearing needs: No Vision needs: No Female Reproductive History Menstrual Total pregnancies: 2 Number of Living Children: 2 Physical Exam Vital Signs: Last Vital Signs BP 153/77 H 03/30/23 15:14 Const General: cooperative and no acute distress Nutritional Appearance: well nourished Orientation/consciousness: patient oriented x3 Limitations: no limitations HEENT Head: Yes normocephalic and Yes atraumatic Ears: hearing grossly normal bilaterally Chest Other: Relative hypoplasia of the right breast. No skin changes, nipple inversion, ni pple discharge identified in either breast. Left breast revealed areas of tenderness along the lower inner quadrant with no palpable mass. No enlarged lymph nodes are noted in either side. Resp Effort & Inspection: normal respiratory effort, no audible wheezes, no cough and no respiratory distress Cardio Jugular venous distension: no JVD GI Inspection: Yes normal to inspection Skin Other: Warm, dry, no rash Neuro General: patient oriented x3 Extrem General: Yes no clubbing, cyanosis or edema Assessment & Plan Assessment & Plan (1) Breast pain, left: Comment: 07:00 o'clock 4 cm from the nipple Code(s): N64.4 - Mastodynia Plan 28-year-old female patient presenting with mastodynia. Examination today revealed no suspicious findings in either breast although the patient does have an area of localized tenderness in the 7 o'clock position of the left breast. Patient is due to be scheduled for an ultrasound of the breast and I have asked her to return following the study to review the results. She will be re- examined at that time. The patient expressed understanding and agrees with the plan. Coding Level of Care Code New Pt Level 4 (82442) Diagnoses Breast pain, left N64.4
[2023-03-30 15:14] VITALS: BP 153/77
== END 2023-03-30 15:34 | disposition home or self-care (01) ==
PROVIDERS: PCP Internal Medicine; Visit Provider Surgery
DX: N64.4 Mastodynia (principal); Z80.3 Family history of malignant neoplasm of breast
CPT/HCPCS: 99204

== ENCOUNTER → 2023-03-30 15:00 | Outpatient (BNVA) | payer OTHER, SELFPAY | PROVIDERS: PCP Internal Medicine; Visit Provider Surgery | DX: N64.4 Mastodynia (principal) | CPT/HCPCS: 99202 ==

== ENCOUNTER 2023-04-01 13:21 | Emergency (ER) | payer OTHER, SELFPAY ==
--- NOTE | ~2023-04-01 | XR_ITS ---
EXAMINATION: XR CHEST CLINICAL INFORMATION: Chest pain, SOB COMPARISON: Chest 01/16/2023 TECHNIQUE: Frontal view of the chest was obtained. FINDINGS: No significant abnormality is noted involving the heart, lungs, mediastinum, bony thorax or soft tissues. XR/XR chest 1V IMPRESSION: Unremarkable chest examination.
--- NOTE | 2023-04-01 13:23 | ECG_ITS ---
Test Reason : CHEST PAIN Blood Pressure : / mmHG Vent. Rate : 083 BPM Atrial Rate : 083 BPM P-R Int : 150 ms QRS Dur : 106 ms QT Int : 358 ms P-R-T Axes : 065 039 021 degrees QTc Int : 420 ms Normal sinus rhythm Normal ECG When compared with ECG of 05-DEC-2022 04:32, No significant change was found Referred By: Virginia Arita Electronically Signed By:Jacob Marina
[2023-04-01 13:53] VITALS: BP 136/88; PULSE 84; RESP 16; TEMP 36.2; O2SAT 99; BMI 28.9
--- NOTE | 2023-04-01 13:54 | ED_ITS ---
HPI - Chest Pain General Chief Complaint: General Medical Stated Complaint: chest and l arm pain Time Seen by Provider: 04/01/23 14:37 Source: patient Mode of arrival: ambulatory Limitations: no limitations History of Present Illness HPI narrative: Patient is a 28-year-old female with a past medical history of GERD and anxiety and hypertension presenting today with sternal chest pain, non radiating for the past few days. Patient reports the chest pain started a few days ago and feels like pressure, it is intermittent in nature. Patient reports for the past few days she has been experiencing nausea. Patient tells me she got nervous last night around 03:00 because she felt like the whole left side of her body was tingling, this lasted a few seconds or minutes patient unclear however this resolved. Patient reports shortness of breath and headache, dizziness a few days ago however they have resolved.. Patient reports dry mouth. Patient reports previous anxiety episodes with similar symptoms. Patient tells me that she has felt anxious lately and she is worried about her sugars and her blood pressure, she tells me her sugars after eating around 180, this has her very concerned although her PCP does not seem to be concerned per patient. Patient also reports that when she is having symptoms she takes her blood pressure and at times that they have been elevated this is also making her concerned. No significant cardiac history in the family. Patient denies fever, chills, vomiting, vision changes, weakness, fatigue, abd pain, dizziness, sob and headache at this time. MOIHSS-[id number] Related Data Home Medications Medication Instructions Recorded Confirmed sucralfate 100 mg/mL oral 10 ml PO QID 03/23/23 03/30/23 suspension Previous Rx's Medication Instructions Recorded ondansetron 4 mg disintegrating 4 mg PO Q6H PRN nausea and 02/03/23 tablet vomiting #14 tabs polyethylene glycol 3350 17 17 g PO BID #238 grams 02/03/23 gram/dose oral powder (Miralax) ferrous sulfate 325 mg (65 mg 325 mg PO DAILY 90 days #90 tabs 02/14/23 iron) tablet sumatriptan succinate 50 mg tablet 50 mg PO Q2-4H PRN migraine 02/14/23 headache #10 tabs fluconazole 150 mg tablet 150 mg PO Q3D 2 doses #2 tabs 03/17/23 (Diflucan) amlodipine 5 mg tablet 5 mg PO DAILY 30 days #30 tabs 03/23/23 nitrofurantoin 100 mg PO Q12H 3 days #6 caps 03/23/23 monohydrate/macrocrystals 100 mg capsule (Macrobid) omeprazole magnesium 20 mg 20 mg PO BID #30 tabs 03/28/23 tablet,delayed release (Prilosec OTC) miscellaneous medical supply #1 ea 03/30/23 (Blood Pressure Cuff) ondansetron 4 mg disintegrating 4 mg PO Q6H PRN nausea and 04/01/23 tablet vomiting #14 tabs Allergies Allergy/AdvReac Type Severity Reaction Status Date / Time amoxicillin [AMOXICILLIN] Allergy Unknown UNKNOWN Verified 03/30/23 15:16 clavulanic acid Allergy Unknown Unknown Verified 03/30/23 15:16 [From Augmentin] cyclobenzaprine Allergy Palpitation Verified 03/30/23 15:16 [From Flexeril] s escitalopram Allergy Palpitation Verified 03/30/23 15:16 s lorazepam [From Ativan] Allergy Palpitation Verified 03/30/23 15:16 s Review of Systems Review of Systems: Constitutional : No Weight loss, No Fever, No Chills, No Fatigue, no Malaise ENT/Mouth : No sore throat, No Rhinorrhea Eyes: No Eye Pain, No Swelling, No Redness Cardiovascular : + Chest Pain, + SOB, No Dyspnea on Exertion, No Orthopnea, No Edema, No Palpitations Respiratory : No Cough, No Sputum, No Wheezing Gastrointestinal : + Nausea, No Vomiting, No Diarrhea, No Constipation, No abdominal Pain, No Hematochezia, No Melena Genitourinary : No Dysuria, no Urinary Frequency, No Hematuria, Musculoskeletal : No joint pain, No Myalgias, No Joint Swelling Skin : No Skin Lesions, No rash Neuro : No Weakness, No Numbness, No Dizziness, No Headache All other systems reviewed and are negative Yes all other systems are reviewed and are negative PMFSH Past Medical History Attestation statement: The following information was validated with the patient. Source: old records reviewed and nursing notes reviewed Medical History (Updated 04/01/23 @ 16:10 by REVA Gutierrez) Anemia Anxiety Breast pain, left Chronic constipation GERD without esophagitis Heavy menses HTN (hypertension) Overweight (BMI 25.0-29.9) Surgical History H/O tooth extraction (~12/10/22) H/O: Family History Family History Paternal Aunt Breast cancer, Onset Age: 35 Maternal Aunt Breast cancer, Onset Age: 40 Other Diabetes High cholesterol Hypertension Social History Social History Housing: House Alcohol intake: never Patient Tobacco Use Status: Never used Tobacco e-Cigarette/Vaping Use: Never Used Advance Directives: No Advance Directives Information Provided: Yes service: No Current occupational status: unemployed Cognitive needs: No Hearing needs: No Vision needs: No Physical Exam Vital Signs: Vital Signs: Last Vital Signs Temp 97.2 F 04/01/23 13:53 Pulse 84 04/01/23 13:53 Resp 16 04/01/23 13:53 BP 136/88 04/01/23 13:53 Pulse Ox 99 04/01/23 13:53 O2 Del Method Room Air 04/01/23 13:53 BMI result Body Mass Index 28.9 vss Appearance: Alert.? Oriented X3.? No acute distress.?Anxious appearing Head: Normocephalic, atraumatic, no step-offs or deformities Eyes: Pupils equal, round and reactive to light.? Neck: Normal inspection.? Neck supple.? CVS: Normal heart rate and rhythm.? Pulses normal.? Respiratory: No respiratory distress.? Breath sounds normal.? Abdomen: Soft and nontender.? Skin: Skin warm and dry.? Normal skin color.? Normal skin turgor.? Extremities: No lower extremity edema.? No calf ttp, negative sanjana. 5/5 strength to bilateral upper and lower extremities Neuro: Oriented X 3.? No motor deficit.? No sensory deficit. CN 2-12 intact normal finger to nose, negative romberg, negative pronator drift NIHSS 0 Course Course Course Narrative: This is an RME: Additional HPI, ROS, PE not included below will be deferred to primary provider. Patient is a 28-year-old female who presents emergency department for evaluation of chest pain radiating to left arm, onset 1 week ago after taking glucagon from hypoglycemic episode. Additionally she is reporting concerned about labile blood pressure and blood glucose levels. Additionally reports headache, sweating, tactile fever, and nausea with vomiting. Plan: labs, EKG Reevaluation(s) Reevaluation #1: CBC appears to be within normal limits. Chemistry unremarkable. Patient's troponin negative, EKG nonischemic unlikely that this is ACS. This is likely noncardiac related chest pain or anxiety. Patient is PERC negative, no shortness of breath, no significant risk factors. HEART score 2 low score risk of MACE of 0.9-1.7%, no need for repeat troponin. Patient reported a fever and headache to triage however denies this to me, tells me she had 1 a few days ago, afebrile at this time, no meningeal signs, history and physical exam not consistent with meningitis or encephalitis. Time: 16:03 Reevaluation #2: At this time patient feeling better, no longer nauseous after Zofran. Patient to be discharged home with cardiology follow-up. Educated patient on diagnosis and treatment plan, answered all question, patient verbalizes understanding. At this time patient will be discharged home, advised to return with new or worsening symptoms. Educated on worrisome signs and symptoms and when to return. At this time I feel comfortable discharge home. Time: 16:07 Medications Administered Discontinued Medications Generic Name Dose Route Start Last Admin Trade Name Bob PRN Reason Stop Dose Admin Ondansetron HCl 4 mg 04/01/23 15:41 04/01/23 15:44 Ondansetron Odt 4 Mg Tab.Rapdis TRANSLINGU 04/01/23 15:42 4 mg ONCE ONE Administration Medical Decision Making Medical Decision Making [facility] Narrative: 28-year-old female presenting with chest pain for the past few days Physical exam benign. Patient anxious appearing. Normal cardiac and neurological exam. Likely anxiety versus non cardiac related chest pain. Unlikely ACS, PE (perc negative), pneumonia, aortic dissection, stroke, posterior stroke, intracranial hemorrhage, pericarditis, myocarditis Plan: Labs, ekg Differential Diagnosis Differential Diagnoses: The differential diagnosis associated with the presentation includes Likely anxiety versus non cardiac related chest pain. Unlikely ACS, PE (perc negative), pneumonia, aortic dissection, pericarditis, myocarditis Admission/Observation Consideration of admission/observation: Escalation of care including admission/ observation considered not likely Lab Data [facility] Lab Attestation statement: I reviewed the patient's lab results. 04/01/23 14:57 04/01/23 14:57 Labs: Lab Results 04/01/23 04/01/23 04/01/23 Range/Units 14:12 14:12 14:57 WBC 10.6 (4.8-10.8) X10*3/uL RBC 5.39 (4.20-5.50) X10*6/uL Hgb 11.6 L (12.0-16.0) g/dl Hct 38.4 (37.0-47.0) % MCV 71.2 L (80.0-98.0) fL MCH 21.5 L (27.0-33.0) pg MCHC 30.2 L (31.0-35.0) g/dl RDW 16.6 H (11.0-16.0) % Plt Count 284 (160-400) X10*3/uL MPV 10.9 (9.4-12.3) fL Immature Gran % (Auto) 0.4 (0.0-0.4) % Neut % (Auto) 72.3 (45-73) % Lymph % (Auto) 19.1 L (20-40) % [place] % (Auto) 5.6 (2-11) % Eos % (Auto) 2.0 (0-4) % Baso % (Auto) 0.6 (0-2) % Lymph # (Auto) 2.0 (1.2-4.9) X10*3/uL [place] # (Auto) 0.6 (0.1-1.2) X10*3/uL Eos # (Auto) 0.2 (0.0-0.4) X10*3/uL Baso # (Auto) 0.1 (0.0-0.2) X10*3/uL Abs Immat Gran (auto) 0.04 H (0.00-0.03) X10*3/uL Absolute Neuts (auto) 7.7 (2.0-8.3) x10*3/uL Absolute Nucleated RBC 0.000 (0.0-0.012) X10*3/uL Nucleated RBC % (auto) 0.0 (0.0-0.2) /100WBC Sodium (135-145) mmol/L Potassium (3.3-5.1) mmol/L Chloride (96-108) mmol/L Carbon Dioxide (22-29) mmol/L Anion Gap (12-20) BUN (9-16) mg/dL Creatinine (0.5-1.4) mg/dL Estim Creat Clear Calc Estimated GFR Random Glucose (60-115) mg/dL Calcium (8.4-10.2) mg/dL Total Bilirubin (0.0-1.0) mg/dL AST (5-31) U/L ALT (0-31) U/L Alkaline Phosphatase (39-117) U/L Troponin I High Sens (<3.5-17.0) ng/L Total Protein (6.5-8.0) g/dL Albumin (3.5-5.0) g/dL Urine Color Yellow Urine Appearance Clear Urine pH 7.0 (5.0-9.0) Ur Specific [place] 1.010 (1.005-1.025) Urine Protein Negative (Neg-Trace) mg/dL Urine Glucose (UA) Negative (Negative) mg/dL Urine Ketones Negative (Negative) mg/dL Urine Blood Negative (Negative) Urine Nitrite Negative (Negative) Ur Leukocyte Esterase Large (3+) H (Negative) Urine RBC 0-2 (0-2) /HPF Urine WBC 11-20 H (0-5) /HPF Ur Squamous Epith Cells 3-5 (0-2) /HPF Urine Bacteria Trace (None Seen) Hyaline Casts 0-2 (0-2) /LPF Urine Test NEGATIVE (NEGATIVE) 04/01/23 04/01/23 Range/Units 14:57 14:57 WBC (4.8-10.8) X10*3/uL RBC (4.20-5.50) X10*6/uL Hgb (12.0-16.0) g/dl Hct (37.0-47.0) % MCV (80.0-98.0) fL MCH (27.0-33.0) pg MCHC (31.0-35.0) g/dl RDW (11.0-16.0) % Plt Count (160-400) X10*3/uL MPV (9.4-12.3) fL Immature Gran % (Auto) (0.0-0.4) % Neut % (Auto) (45-73) % Lymph % (Auto) (20-40) % [place] % (Auto) (2-11) % Eos % (Auto) (0-4) % Baso % (Auto) (0-2) % Lymph # (Auto) (1.2-4.9) X10*3/uL [place] # (Auto) (0.1-1.2) X10*3/uL Eos # (Auto) (0.0-0.4) X10*3/uL Baso # (Auto) (0.0-0.2) X10*3/uL Abs Immat Gran (auto) (0.00-0.03) X10*3/uL Absolute Neuts (auto) (2.0-8.3) x10*3/uL Absolute Nucleated RBC (0.0-0.012) X10*3/uL Nucleated RBC % (auto) (0.0-0.2) /100WBC Sodium 140 (135-145) mmol/L Potassium 3.8 (3.3-5.1) mmol/L Chloride 102 (96-108) mmol/L Carbon Dioxide 29 (22-29) mmol/L Anion Gap 13 (12-20) BUN 10 (9-16) mg/dL Creatinine 0.83 (0.5-1.4) mg/dL Estim Creat Clear Calc 85.4 Estimated GFR > 60 Random Glucose 103 (60-115) mg/dL Calcium 10.3 H D (8.4-10.2) mg/dL Total Bilirubin 0.3 (0.0-1.0) mg/dL AST 15 (5-31) U/L ALT 13 (0-31) U/L Alkaline Phosphatase 74 (39-117) U/L Troponin I High Sens < 2.7 (<3.5-17.0) ng/L Total Protein 8.5 H (6.5-8.0) g/dL Albumin 4.8 (3.5-5.0) g/dL Urine Color Urine Appearance Urine pH (5.0-9.0) Ur Specific [place] (1.005-1.025) Urine Protein (Neg-Trace) mg/dL Urine Glucose (UA) (Negative) mg/dL Urine Ketones (Negative) mg/dL Urine Blood (Negative) Urine Nitrite (Negative) Ur Leukocyte Esterase (Negative) Urine RBC (0-2) /HPF Urine WBC (0-5) /HPF Ur Squamous Epith Cells (0-2) /HPF Urine Bacteria (None Seen) Hyaline Casts (0-2) /LPF Urine Test (NEGATIVE) Independent Interpretation I performed an independent interpretation of an: EKG and Plain X-Ray Radiology Impression Discussion of test interpretation with radiology: I have reviewed the radiologist's reading. Core Measures AMI core measures followed: Yes Measure exclusions: not indicated Critical Care Time Critical Care Time Critical Care Time: No Discharge Plan Discharge Clinical Impression: Chest pain, Anxiety, Nausea Patient Disposition: Home, Self-Care Instructions: Chest Pain (ED), Acute Nausea and Vomiting (ED), Anxiety (ED) Additional Instructions: Take your medications as prescribed. If you were prescribed antibiotics today, it is important that you take your medication to their entirety, do not skip any doses, do not finish them early. Follow-up with your primary care provider this week. Follow-up with cardiology. Return to the emergency department with new or worsening symptoms. Such as fevers, chills, chest pain, shortness of breath, nausea, vomiting, dizziness, headache, vision changes, lethargy In case of emergency call 911 Prescriptions: New ondansetron 4 mg tablet,disintegrating 4 mg PO Q6H PRN (Reason: nausea and vomiting) Qty: 14 0RF No Action fluconazole [Diflucan] 150 mg tablet 150 mg PO Q3D Qty: 2 0RF (DME) Blood Pressure Cuff Misc See Rx Instructions .ROUTE .MEDSUPPLY Qty: 1 0RF Rx Instructions: As directed polyethylene glycol 3350 [Miralax] 17 gram/dose powder 17 g PO BID Qty: 238 0RF ondansetron 4 mg tablet,disintegrating 4 mg PO Q6H PRN (Reason: nausea and vomiting) Qty: 14 0RF omeprazole magnesium [Prilosec OTC] 20 mg tablet,delayed release (DR/EC) 20 mg PO BID Qty: 30 0RF ferrous sulfate 325 mg (65 mg iron) tablet 325 mg PO DAILY 90 Days Qty: 90 1RF sumatriptan succinate 50 mg tablet 50 mg PO Q2-4H PRN (Reason: migraine headache) Qty: 10 1RF Rx Instructions: do not exceed 4 doses per 24 hrs sucralfate 100 mg/mL suspension 10 ml PO QID amlodipine 5 mg tablet 5 mg PO DAILY 30 Days Qty: 30 3RF nitrofurantoin monohyd/m-cryst [Macrobid] 100 mg capsule 100 mg PO Q12H 3 Days Qty: 6 0RF Rx Instructions: must administer with a meal/food Referrals: [facility] [place] Cardiovascular Services [Provider Group] - 2 days Jeffy Gutierrez MD [Primary Care Provider] - 2 days Stand Alone Forms: Work/School Release
[2023-04-01 14:19] LABS: Appearance Urine Clear; Color Urine Yellow; Glucose Urine UA Negative (Negative); Leukocyte Esterase Urine Large (3+) (Negative); Nitrite Urine Negative (Negative); UMIC TRIGGER UACC YES; Urine Blood Negative (Negative); Urine Ketones Negative (Negative); Urine Protein Negative (Neg-Trace)
[2023-04-01 14:24] LABS: Bacteria Urine Trace (None Seen); Hyaline Casts Urine 0-2 /LPF (0-2); RBC Urine 0-2 /HPF (0-2); UACC Culture Trigger YES
[2023-04-01 14:32] LABS: Urine Pregnancy NEGATIVE (NEGATIVE)
[2023-04-01 14:33] LABS: UPreg QC Valid YES
[2023-04-01 15:01] LABS: MANUAL DIFF FLAG NO
[2023-04-01 15:05] LABS: Basophils Absolute Auto 0.1 X10*3/uL (0.0-0.2); Basophils Percent Auto 0.6 % (0-2); Eosinophils Absolute Auto 0.2 X10*3/uL (0.0-0.4); Hematocrit 38.4 % (37.0-47.0); Hemoglobin 11.6 g/dl (12.0-16.0); Imm Gran Abs Auto 0.04 X10*3/uL (0.00-0.03); Imm Gran Pct Auto 0.4 % (0.0-0.4); Lymphocytes Percent Auto 19.1 % (20-40); Mean Corpuscular HGB Conc 30.2 g/dl (31.0-35.0); Mean Corpuscular Hemoglobin 21.5 pg (27.0-33.0); Mean Corpuscular Volume 71.2 fL (80.0-98.0); Mean Platelet Volume 10.9 fL (9.4-12.3); Monocytes Absolute Auto 0.6 X10*3/uL (0.1-1.2); Monocytes Percent Auto 5.6 % (2-11); Neutrophils Absolute Auto 7.7 x10*3/uL (2.0-8.3); Neutrophils Percent Auto 72.3 % (45-73); Platelet Count 284 X10*3/uL (160-400); Red Blood Count 5.39 X10*6/uL (4.20-5.50); Red Cell Distribution Width 16.6 % (11.0-16.0); White Blood Count 10.6 X10*3/uL (4.8-10.8)
[2023-04-01 15:17] LABS: Alanine Aminotransferase 13 U/L (0-31); Albumin Level 4.8 g/dL (3.5-5.0); Alkaline Phosphatase 74 U/L (39-117); Anion Gap 13 (12-20); Aspartate Amino Transferase 15 U/L (5-31); Bilirubin Total 0.3 mg/dL (0.0-1.0); Blood Urea Nitrogen 10 mg/dL (9-16); Calcium 10.3 mg/dL (8.4-10.2); Carbon Dioxide 29 mmol/L (22-29); Chloride 102 mmol/L (96-108); Creatinine Clr Calc Pharmacy 85.4; Estimated Glomerular Filt Rate > 60; Glucose Random 103 mg/dL (60-115); Potassium 3.8 mmol/L (3.3-5.1); Sodium 140 mmol/L (135-145); Total Protein 8.5 g/dL (6.5-8.0)
[2023-04-01 15:25] LABS: Troponin-I High Sensitivity < 2.7 ng/L (<3.5-17.0)
[2023-04-01] MEDS: Ondansetron ODT 4 MG TAB.RAPDIS TRANSLINGU (15:44)
== END 2023-04-01 16:37 | disposition home or self-care (01) ==
PROVIDERS: Nurse Practitioner Family; Emergency Provider Emergency Medicine; PCP Internal Medicine
DX: R07.9 Chest pain, unspecified (principal); M79.602 Pain in left arm; I10 Essential (primary) hypertension; D64.9 Anemia, unspecified; F41.9 Anxiety disorder, unspecified; R11.0 Nausea
CPT/HCPCS: 36415; 71045; 80053; 81001; 81025; 84484; 85025; 87086; 93005; 99284

== ENCOUNTER → 2023-04-01 13:23 | Outpatient (BNV) | payer OTHER, SELFPAY | PROVIDERS: Emergency Provider Emergency Medicine; PCP Internal Medicine; Visit Provider Internal Medicine Cardiovascular Disease | DX: R07.9 Chest pain, unspecified (principal) | CPT/HCPCS: 93010 ==

== ENCOUNTER 2023-04-05 02:34 | Emergency (ER) | payer OTHER, SELFPAY ==
[2023-04-05 02:40] VITALS: BP 140/80; PULSE 88; RESP 20; O2SAT 100; BMI 28.3
[2023-04-05 02:43] VITALS: BP 130/82; PULSE 78; RESP 14; TEMP 37.2; O2SAT 100
[2023-04-05 02:54] LABS: Glucose, Whole Blood 124 mg/dL (60-115)
[2023-04-05 03:57] LABS: Glucose, Whole Blood 102 mg/dL (60-115)
--- NOTE | 2023-04-05 04:47 | PC.NURSE ---
patient in bed with eyes closed patient showing no distress at this time patient has daughter at the bedside patient is waiting to be seen by the doctor patient will continue to be monitored for safety
[2023-04-05 06:21] VITALS: BP 138/74; PULSE 74; RESP 17; TEMP 36.8; O2SAT 98
--- NOTE | 2023-04-05 06:25 | ED_ITS ---
HPI - General Adult General Chief complaint: Weakness Stated complaint: hypoglycemia Time Seen by Provider: 04/05/23 03:08 Source: patient Mode of arrival: ambulatory Limitations: no limitations History of Present Illness HPI narrative: Patient prediabetic after worried about her blood sugar which is fluctuating between 70-260 in last few months, been managed by PCP but not satisfied on arrival patient's blood sugar was 124 very anxious on arrival patient was seen on 04/01 also for anxiety Related Data Home Medications Medication Instructions Recorded Confirmed sucralfate 100 mg/mL oral 10 ml PO QID 03/23/23 03/30/23 suspension Previous Rx's Medication Instructions Recorded ondansetron 4 mg disintegrating 4 mg PO Q6H PRN nausea and 02/03/23 tablet vomiting #14 tabs polyethylene glycol 3350 17 17 g PO BID #238 grams 02/03/23 gram/dose oral powder (Miralax) ferrous sulfate 325 mg (65 mg 325 mg PO DAILY 90 days #90 tabs 02/14/23 iron) tablet sumatriptan succinate 50 mg tablet 50 mg PO Q2-4H PRN migraine 02/14/23 headache #10 tabs fluconazole 150 mg tablet 150 mg PO Q3D 2 doses #2 tabs 03/17/23 (Diflucan) amlodipine 5 mg tablet 5 mg PO DAILY 30 days #30 tabs 03/23/23 nitrofurantoin 100 mg PO Q12H 3 days #6 caps 03/23/23 monohydrate/macrocrystals 100 mg capsule (Macrobid) omeprazole magnesium 20 mg 20 mg PO BID #30 tabs 03/28/23 tablet,delayed release (Prilosec OTC) miscellaneous medical supply #1 ea 03/30/23 (Blood Pressure Cuff) ondansetron 4 mg disintegrating 4 mg PO Q6H PRN nausea and 04/01/23 tablet vomiting #14 tabs Allergies Allergy/AdvReac Type Severity Reaction Status Date / Time amoxicillin [AMOXICILLIN] Allergy Unknown UNKNOWN Verified 03/30/23 15:16 clavulanic acid Allergy Unknown Unknown Verified 03/30/23 15:16 [From Augmentin] cyclobenzaprine Allergy Palpitation Verified 03/30/23 15:16 [From Flexeril] s escitalopram Allergy Palpitation Verified 03/30/23 15:16 s lorazepam [From Ativan] Allergy Palpitation Verified 03/30/23 15:16 s Review of Systems Review of Systems: Yes all other systems are reviewed and are negative [facility] Past Medical History Medical History Anemia Anxiety Breast pain, left Chronic constipation GERD without esophagitis Heavy menses HTN (hypertension) Overweight (BMI 25.0-29.9) Surgical History H/O tooth extraction (~12/10/22) H/O: Family History Family History Paternal Aunt Breast cancer, Onset Age: 35 Maternal Aunt Breast cancer, Onset Age: 40 Other Diabetes High cholesterol Hypertension Social History Social History Housing: House Alcohol intake: never Patient Tobacco Use Status: Never used Tobacco Smoked in Last 30 Days: No e-Cigarette/Vaping Use: Never Used Use of substances other than those prescribed or required for medical reasons: No Any prior treatment program specific to substance use: No Advance Directives: No Advance Directives Information Provided: No service: No Current occupational status: unemployed Cognitive needs: No Hearing needs: No Vision needs: No Physical Exam ED Vital Signs: Vital Signs - 24 hr 04/05/23 02:40 04/05/23 02:43 04/05/23 06:21 Temperature 99 F 98.3 F Pulse Rate 88 78 74 Respiratory Rate 20 14 17 Blood Pressure 140/80 H 130/82 138/74 Pulse Oximetry 100 100 98 Oxygen Delivery Method Room Air Room Air Room Air BMI result Body Mass Index 28.3 Appearance: Alert. Oriented X3. No acute distress. Anxious Eyes: PERRLA, ENT: Pharynx normal. Oral Mucosa moist Neck: Normal inspection. Neck supple. CVS: Normal heart rate and rhythm. Pulses normal. Respiratory: No respiratory distress. Equal air entry bilateral, no wheezing/rales/rhonchi Abdomen: Soft and nontender. Bowel sounds are present, no mass palpable, no CVA tenderness Skin: Skin warm and dry. Normal skin color. Normal skin turgor. Extremities: No lower extremity edema. No calf tenderness Neuro: Oriented X 3. No motor deficit. 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 Labs: Lab Results 04/05/23 04/05/23 Range/Units 02:48 03:52 POC Glucose 124 H 102 (60-115) mg/dL Discharge Plan Discharge Clinical Impression: Diabetes mellitus Patient Disposition: Home, Self-Care Instructions: Prediabetes (ED) Additional Instructions: Drink plenty of fluids Follow-up with PCP/diabetic specialist You are prediabetic at this time you do not need any medications Beber mucho l?quido Seguimiento con PCP/especialista en diabetes Eres prediab?elena en jayashree momento no necesitas keysha?n medicamento Prescriptions: No Action fluconazole [Diflucan] 150 mg tablet 150 mg PO Q3D Qty: 2 0RF (DME) Blood Pressure Cuff Misc See Rx Instructions .ROUTE .MEDSUPPLY Qty: 1 0RF Rx Instructions: As directed ondansetron 4 mg tablet,disintegrating 4 mg PO Q6H PRN (Reason: nausea and vomiting) Qty: 14 0RF polyethylene glycol 3350 [Miralax] 17 gram/dose powder 17 g PO BID Qty: 238 0RF ondansetron 4 mg tablet,disintegrating 4 mg PO Q6H PRN (Reason: nausea and vomiting) Qty: 14 0RF omeprazole magnesium [Prilosec OTC] 20 mg tablet,delayed release (DR/EC) 20 mg PO BID Qty: 30 0RF ferrous sulfate 325 mg (65 mg iron) tablet 325 mg PO DAILY 90 Days Qty: 90 1RF sumatriptan succinate 50 mg tablet 50 mg PO Q2-4H PRN (Reason: migraine headache) Qty: 10 1RF Rx Instructions: do not exceed 4 doses per 24 hrs sucralfate 100 mg/mL suspension 10 ml PO QID amlodipine 5 mg tablet 5 mg PO DAILY 30 Days Qty: 30 3RF nitrofurantoin monohyd/m-cryst [Macrobid] 100 mg capsule 100 mg PO Q12H 3 Days Qty: 6 0RF Rx Instructions: must administer with a meal/food Referrals: Russell Preciado MD [Physician] - 2 weeks Print Language: Lao
== END 2023-04-05 06:41 | disposition home or self-care (01) ==
PROVIDERS: Emergency Provider Internal Medicine; PCP Internal Medicine
DX: E11.9 Type 2 diabetes mellitus without complications (principal)
CPT/HCPCS: 82947; 99283; 99284

== ENCOUNTER 2023-04-29 02:05 | Emergency (ER) | payer OTHER, SELFPAY ==
--- NOTE | ~2023-04-29 | XR_ITS ---
EXAMINATION: XR CHEST CLINICAL INFORMATION: Chest pressure. Hypertension. COMPARISON: 04/01/2023 TECHNIQUE: Frontal view of the chest was obtained. FINDINGS: The lungs are well expanded. There is no focal consolidation, edema, or effusion. No pneumothorax. The cardiomediastinal silhouette is within normal limits. No acute osseous abnormality. XR/XR chest 1V IMPRESSION: Clear lungs.
--- NOTE | 2023-04-29 02:07 | ECG_ITS ---
Test Reason : CHEST PAIN Blood Pressure : / mmHG Vent. Rate : 079 BPM Atrial Rate : 079 BPM P-R Int : 148 ms QRS Dur : 104 ms QT Int : 360 ms P-R-T Axes : 067 040 029 degrees QTc Int : 412 ms Normal sinus rhythm with sinus arrhythmia Possible Left atrial enlargement Left ventricular hypertrophy ( José Antoniohilt-Soto ) Abnormal ECG When compared with ECG of 01-APR-2023 13:31, No significant change was found Referred By: Generic ED Physician Electronically Signed By:ZEUS DICKSON
[2023-04-29 02:12] VITALS: BP 176/125; PULSE 82; O2SAT 99
[2023-04-29 02:16] VITALS: BP 183/112; PULSE 89; RESP 16; TEMP 37; O2SAT 99; BMI 29.7
--- NOTE | 2023-04-29 02:29 | ED_ITS ---
HPI - Chest Pain General Chief Complaint: Chest Pain Stated Complaint: nausea/ vomiting/ chest pain Time Seen by Provider: 04/29/23 02:29 Source: patient Mode of arrival: ambulatory Limitations: no limitations History of Present Illness HPI narrative: Patient 28 years old history of hypertension on Norvasc supposed to take 10 mg daily taking twice daily for last few months supposed to be on chlorthalidone but she is not taking it was taking shower suddenly felt lightheaded checked her blood pressure was elevated to 180/104 felt slight tightness in the chest no shortness of breath no cough patient blood pressure is usually well controlled according to records patient is supposed to take it only once daily but says that PCP told her to take 2 tablets a day Related Data Home Medications Medication Instructions Recorded Confirmed sucralfate 100 mg/mL oral 10 ml PO QID 03/23/23 03/30/23 suspension Previous Rx's Medication Instructions Recorded ondansetron 4 mg disintegrating 4 mg PO Q6H PRN nausea and 02/03/23 tablet vomiting #14 tabs polyethylene glycol 3350 17 17 g PO BID #238 grams 02/03/23 gram/dose oral powder (Miralax) ferrous sulfate 325 mg (65 mg 325 mg PO DAILY 90 days #90 tabs 02/14/23 iron) tablet fluconazole 150 mg tablet 150 mg PO Q3D 2 doses #2 tabs 03/17/23 (Diflucan) amlodipine 5 mg tablet 5 mg PO DAILY 30 days #30 tabs 03/23/23 nitrofurantoin 100 mg PO Q12H 3 days #6 caps 03/23/23 monohydrate/macrocrystals 100 mg capsule (Macrobid) omeprazole magnesium 20 mg 20 mg PO BID #30 tabs 03/28/23 tablet,delayed release (Prilosec OTC) miscellaneous medical supply #1 ea 03/30/23 (Blood Pressure Cuff) ondansetron 4 mg disintegrating 4 mg PO Q6H PRN nausea and 04/01/23 tablet vomiting #14 tabs sumatriptan succinate 50 mg tablet 50 mg PO Q2-4H PRN migraine 04/13/23 headache #10 tabs metronidazole 500 mg tablet 500 mg PO BID #14 tabs 04/20/23 chlorthalidone 25 mg tablet 25 mg PO DAILY #30 tabs 04/29/23 losartan 50 mg tablet 50 mg PO DAILY #30 tabs 04/29/23 Allergies Allergy/AdvReac Type Severity Reaction Status Date / Time amoxicillin [AMOXICILLIN] Allergy Unknown UNKNOWN Verified 03/30/23 15:16 clavulanic acid Allergy Unknown Unknown Verified 03/30/23 15:16 [From Augmentin] cyclobenzaprine Allergy Palpitation Verified 03/30/23 15:16 [From Flexeril] s escitalopram Allergy Palpitation Verified 03/30/23 15:16 s lorazepam [From Ativan] Allergy Palpitation Verified 03/30/23 15:16 s Review of Systems Review of Systems: Yes all other systems are reviewed and are negative [facility] Past Medical History Medical History Anemia Anxiety Breast pain, left Chronic constipation GERD without esophagitis Heavy menses HTN (hypertension) Overweight (BMI 25.0-29.9) Surgical History H/O tooth extraction (~12/10/22) H/O: Family History Family History Paternal Aunt Breast cancer, Onset Age: 35 Maternal Aunt Breast cancer, Onset Age: 40 Other Diabetes High cholesterol Hypertension Social History Social History Housing: House Alcohol intake: never Patient Tobacco Use Status: Never used Tobacco e-Cigarette/Vaping Use: Never Used Advance Directives: No Advance Directives Information Provided: No service: No Current occupational status: unemployed Cognitive needs: No Hearing needs: No Vision needs: No Physical Exam Vital Signs: Vital Signs: Last Vital Signs Temp 97.9 F 04/29/23 04:54 Pulse 82 04/29/23 04:54 Resp 18 04/29/23 04:54 BP 167/98 H 04/29/23 04:54 Pulse Ox 99 04/29/23 04:54 O2 Del Method Room Air 04/29/23 04:54 BMI result Body Mass Index 29.7 Appearance: Alert. Oriented X3. No acute distress. Anxious Eyes: PERRLA, No Nystagmus ENT: Pharynx normal. Oral Mucosa moist Neck: Normal inspection. Neck supple. CVS: Normal heart rate and rhythm. Pulses normal. Respiratory: No respiratory distress. Equal air entry bilateral, no wheezing/rales/rhonchi Abdomen: Soft and nontender. Bowel sounds are present, no mass palpable, no CVA tenderness Skin: Skin warm and dry. Normal skin color. Normal skin turgor. Extremities: No lower extremity edema. No calf tenderness Neuro: Oriented X 3. No motor deficit. No sensory deficit.No cerebellar signs , cranial nerves II-XII intact Medications Administered Discontinued Medications Generic Name Dose Route Start Last Admin Trade Name Bhupendraq PRN Reason Stop Dose Admin Alprazolam 0.5 mg 04/29/23 02:55 04/29/23 03:48 Alprazolam 0.5 Mg Tablet PO 04/29/23 02:56 0.5 mg ONCE ONE Administration Losartan Potassium 50 mg 04/29/23 04:39 04/29/23 04:57 Losartan Potassium 50 Mg Tablet PO 04/29/23 04:40 50 mg ONCE ONE Administration Protocol Nitroglycerin 1 inch 04/29/23 02:54 04/29/23 03:52 Nitroglycerin 2 % Oint 1 Gm Packet TRANSDERMA 04/29/23 02:55 Not Given ONCE ONE Medical Decision Making Medical Decision Making [facility] Narrative: Patient with elevated blood pressure with increased anxiety and chest pain work up is negative for acute issues. Per records patient is supposed to take 10 mg of amlodipine but saying that his PCP in doing less with [place] who take 2 tablets a day. Patient took 1 tablet prior to arrival but noticed her high blood pressure , patient BP improve to 160/98 patient was given losartan 50 mg after they advised to continue losartan along with amlodipine Lab Data [facility] Lab Attestation statement: I reviewed the patient's lab results. 04/29/23 02:38 04/29/23 02:39 Labs: Lab Results 04/29/23 04/29/23 04/29/23 Range/Units 02:38 02:39 02:39 WBC 10.9 H (4.8-10.8) X10*3/uL RBC 4.94 (4.20-5.50) X10*6/uL Hgb 10.6 L (12.0-16.0) g/dl Hct 34.8 L (37.0-47.0) % MCV 70.4 L (80.0-98.0) fL MCH 21.5 L (27.0-33.0) pg MCHC 30.5 L (31.0-35.0) g/dl RDW 16.6 H (11.0-16.0) % Plt Count 267 (160-400) X10*3/uL MPV 10.6 (9.4-12.3) fL Immature Gran % (Auto) 0.4 (0.0-0.4) % Neut % (Auto) 64.3 (45-73) % Lymph % (Auto) 25.1 (20-40) % Nance % (Auto) 7.3 (2-11) % Eos % (Auto) 2.3 (0-4) % Baso % (Auto) 0.6 (0-2) % Lymph # (Auto) 2.7 (1.2-4.9) X10*3/uL Nance # (Auto) 0.8 (0.1-1.2) X10*3/uL Eos # (Auto) 0.3 (0.0-0.4) X10*3/uL Baso # (Auto) 0.1 (0.0-0.2) X10*3/uL Abs Immat Gran (auto) 0.04 H (0.00-0.03) X10*3/uL Absolute Neuts (auto) 7.0 (2.0-8.3) x10*3/uL Absolute Nucleated RBC 0.000 (0.0-0.012) X10*3/uL Nucleated RBC % (auto) 0.0 (0.0-0.2) /100WBC Sodium 140 (135-145) mmol/L Potassium 4.0 (3.3-5.1) mmol/L Chloride 107 (96-108) mmol/L Carbon Dioxide 23 (22-29) mmol/L Anion Gap 14 (12-20) BUN 13 (9-16) mg/dL Creatinine 0.79 (0.5-1.4) mg/dL Estim Creat Clear Calc 91.0 Estimated GFR > 60 Random Glucose 101 (60-115) mg/dL Calcium 10.4 H (8.4-10.2) mg/dL Troponin I High Sens < 2.7 (<3.5-17.0) ng/L Discharge Plan Discharge Clinical Impression: HTN (hypertension) Patient Disposition: Home, Self-Care Instructions: Chronic Hypertension (ED) Additional Instructions: Continue amlodipine 10 mg daily along with chlorthalidone daily as prescribed by her PCP Start taking losartan 50 mg daily in a.m. Your blood pressure should be less than 130/85 Relax and take your other medications Contin?e amlodipino 10 mg al d?a junto con clortalidona al d?a seg?n lo prescr kathy por [place] PCP Comience a john losartan 50 mg diariamente en la ma?nathan. [place] presi?n arterial debe ser inferior a 130/85 Rel?doni y tome rosey otros medicamentos. Prescriptions: New losartan 50 mg tablet 50 mg PO DAILY Qty: 30 0RF chlorthalidone 25 mg tablet 25 mg PO DAILY Qty: 30 0RF No Action fluconazole [Diflucan] 150 mg tablet 150 mg PO Q3D Qty: 2 0RF (DME) Blood Pressure Cuff Misc See Rx Instructions .ROUTE .MEDSUPPLY Qty: 1 0RF Rx Instructions: As directed sumatriptan succinate 50 mg tablet 50 mg PO Q2-4H PRN (Reason: migraine headache) Qty: 10 1RF Rx Instructions: do not exceed 4 doses per 24 hrs metronidazole 500 mg tablet 500 mg PO BID Qty: 14 0RF ondansetron 4 mg tablet,disintegrating 4 mg PO Q6H PRN (Reason: nausea and vomiting) Qty: 14 0RF polyethylene glycol 3350 [Miralax] 17 gram/dose powder 17 g PO BID Qty: 238 0RF ondansetron 4 mg tablet,disintegrating 4 mg PO Q6H PRN (Reason: nausea and vomiting) Qty: 14 0RF omeprazole magnesium [Prilosec OTC] 20 mg tablet,delayed release (DR/EC) 20 mg PO BID Qty: 30 0RF ferrous sulfate 325 mg (65 mg iron) tablet 325 mg PO DAILY 90 Days Qty: 90 1RF sucralfate 100 mg/mL suspension 10 ml PO QID amlodipine 5 mg tablet 5 mg PO DAILY 30 Days Qty: 30 3RF nitrofurantoin monohyd/m-cryst [Macrobid] 100 mg capsule 100 mg PO Q12H 3 Days Qty: 6 0RF Rx Instructions: must administer with a meal/food Interventions: ED Discharge Assessment Last Done: 04/29/23 05:00 Discharge Date/Time: 04/29/23 05:01 Print Language: Burundian
[2023-04-29 02:42] LABS: MANUAL DIFF FLAG NO
--- NOTE | 2023-04-29 02:42 | MHC.EDTECH ---
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
[2023-04-29 02:44] LABS: Basophils Absolute Auto 0.1 X10*3/uL (0.0-0.2); Basophils Percent Auto 0.6 % (0-2); Eosinophils Absolute Auto 0.3 X10*3/uL (0.0-0.4); Eosinophils Percent Auto 2.3 % (0-4); Hematocrit 34.8 % (37.0-47.0); Hemoglobin 10.6 g/dl (12.0-16.0); Imm Gran Abs Auto 0.04 X10*3/uL (0.00-0.03); Imm Gran Pct Auto 0.4 % (0.0-0.4); Lymphocytes Absolute Auto 2.7 X10*3/uL (1.2-4.9); Lymphocytes Percent Auto 25.1 % (20-40); Mean Corpuscular HGB Conc 30.5 g/dl (31.0-35.0); Mean Corpuscular Hemoglobin 21.5 pg (27.0-33.0); Mean Corpuscular Volume 70.4 fL (80.0-98.0); Mean Platelet Volume 10.6 fL (9.4-12.3); Monocytes Absolute Auto 0.8 X10*3/uL (0.1-1.2); Monocytes Percent Auto 7.3 % (2-11); Neutrophils Percent Auto 64.3 % (45-73); Platelet Count 267 X10*3/uL (160-400); Red Blood Count 4.94 X10*6/uL (4.20-5.50); Red Cell Distribution Width 16.6 % (11.0-16.0); White Blood Count 10.9 X10*3/uL (4.8-10.8)
[2023-04-29 03:05] LABS: Anion Gap 14 (12-20); Blood Urea Nitrogen 13 mg/dL (9-16); Calcium 10.4 mg/dL (8.4-10.2); Carbon Dioxide 23 mmol/L (22-29); Chloride 107 mmol/L (96-108); Estimated Glomerular Filt Rate > 60; Glucose Random 101 mg/dL (60-115); Sodium 140 mmol/L (135-145)
[2023-04-29 03:16] LABS: Troponin-I High Sensitivity < 2.7 ng/L (<3.5-17.0)
[2023-04-29] MEDS: ALPRAZolam 0.5 MG TABLET PO (03:48)
[2023-04-29 03:53] VITALS: BP 157/89; PULSE 66; RESP 16; TEMP 36.6; O2SAT 98
--- NOTE | 2023-04-29 03:56 | MHC.EDTECH ---
0400 rounding done ,vitals sign taken pt resting quietly in bed.
[2023-04-29 04:54] VITALS: BP 167/98; PULSE 82; RESP 18; TEMP 36.6; O2SAT 99
[2023-04-29] MEDS: Losartan Potassium 50 MG TABLET PO (04:57)
== END 2023-04-29 05:01 | disposition home or self-care (01) ==
PROVIDERS: Emergency Provider Internal Medicine
DX: I10 Essential (primary) hypertension (principal); F41.9 Anxiety disorder, unspecified; Z79.899 Other long term (current) drug therapy
CPT/HCPCS: 36415; 71045; 80048; 84484; 85025; 93005; 99283; 99284

== ENCOUNTER 2023-08-29 03:52 | Emergency (ER) | payer OTHER, SELFPAY ==
--- NOTE | 2023-08-29 | ECG_ITS ---
Test Reason : CHEST PRESSURE Blood Pressure : / mmHG Vent. Rate : 078 BPM Atrial Rate : 078 BPM P-R Int : 142 ms QRS Dur : 106 ms QT Int : 348 ms P-R-T Axes : 037 030 021 degrees QTc Int : 396 ms Normal sinus rhythm Minimal voltage criteria for LVH, may be normal variant ( R in aVL ) Borderline ECG When compared with ECG of 29-APR-2023 02:11, No significant change was found Referred By: Generic ED Physician Electronically Signed By:TERE MELLO MD
--- NOTE | ~2023-08-29 | XR_ITS ---
EXAMINATION: XR CHEST CLINICAL INFORMATION: Pain COMPARISON: 04/29/2023 TECHNIQUE: Frontal view of the chest was obtained. FINDINGS: No significant abnormality is noted involving the heart, lungs, mediastinum, bony thorax or soft tissues. XR/XR chest 1V IMPRESSION: Unremarkable examination.
[2023-08-29 04:06] VITALS: BP 156/94; BP 188/111; BMI 27.5
[2023-08-29 04:10] VITALS: BP 188/111; PULSE 80; RESP 20; TEMP 37.2; O2SAT 98
[2023-08-29 04:13] LABS: MANUAL DIFF FLAG NO
[2023-08-29 04:14] LABS: Basophils Absolute Auto 0.1 X10*3/uL (0.0-0.2); Basophils Percent Auto 0.9 % (0-2); Eosinophils Absolute Auto 0.3 X10*3/uL (0.0-0.4); Eosinophils Percent Auto 2.9 % (0-4); Hematocrit 34.3 % (37.0-47.0); Hemoglobin 10.5 g/dl (12.0-16.0); Imm Gran Abs Auto 0.02 X10*3/uL (0.00-0.03); Imm Gran Pct Auto 0.2 % (0.0-0.4); Lymphocytes Absolute Auto 3.2 X10*3/uL (1.2-4.9); Lymphocytes Percent Auto 32.2 % (20-40); Mean Corpuscular HGB Conc 30.6 g/dl (31.0-35.0); Mean Corpuscular Hemoglobin 22.2 pg (27.0-33.0); Mean Corpuscular Volume 72.7 fL (80.0-98.0); Mean Platelet Volume 10.8 fL (9.4-12.3); Monocytes Absolute Auto 0.8 X10*3/uL (0.1-1.2); Monocytes Percent Auto 7.7 % (2-11); Neutrophils Absolute Auto 5.5 x10*3/uL (2.0-8.3); Neutrophils Percent Auto 56.1 % (45-73); Platelet Count 307 X10*3/uL (160-400); Red Blood Count 4.72 X10*6/uL (4.20-5.50); Red Cell Distribution Width 15.1 % (11.0-16.0); White Blood Count 9.9 X10*3/uL (4.8-10.8)
[2023-08-29 04:32] LABS: Alanine Aminotransferase 17 U/L (0-31); Albumin Level 4.2 g/dL (3.5-5.0); Alkaline Phosphatase 68 U/L (39-117); Anion Gap 14 (12-20); Aspartate Amino Transferase 15 U/L (5-31); Bilirubin Total 0.3 mg/dL (0.0-1.0); Blood Urea Nitrogen 12 mg/dL (9-16); Calcium 9.5 mg/dL (8.4-10.2); Carbon Dioxide 23 mmol/L (22-29); Chloride 108 mmol/L (96-108); Estimated Glomerular Filt Rate > 60; Glucose Random 108 mg/dL (60-115); Potassium 3.7 mmol/L (3.3-5.1); Sodium 141 mmol/L (135-145); Total Protein 7.7 g/dL (6.5-8.0)
[2023-08-29 04:45] LABS: Troponin-I High Sensitivity < 2.7 ng/L (<3.5-17.0)
--- NOTE | 2023-08-29 04:45 | ED_ITS ---
HPI - Chest Pain General Chief Complaint: General Medical Stated Complaint: chest pressure Time Seen by Provider: 08/29/23 04:45 Source: patient and old records reviewed Mode of arrival: EMS Limitations: no limitations History of Present Illness HPI narrative: 28 yo female with PMH of HTN, hyperglycemia, anemia, GERD, here with c/o waking up and feeling hot and sweaty but then with chills. Both arms and legs felt heavy and funny. Her heart was racing. She felt her chest was tight as well and her BP was high which is unusual she is compliant with medications. She notes she went to bed fine. Her kids are both sick with URIs. She states this is different from her usual panic attacks. MD complaint: chest heaviness Onset (ago): hour(s) (1) Timing of current episode: other (improving) Prior episodes: Yes Onset: during rest Pain location: substernal Pain radiation: none Severity: mild Quality: tightness Relieving factors: nothing Exacerbating factors: nothing Associated symptoms: other (sweats, chills, hot flashes, heaviness in all extremities) Treatment prior to arrival: aspirin Related Data Home Medications Medication Instructions Recorded Confirmed sucralfate 100 mg/mL oral 10 ml PO QID 03/23/23 03/30/23 suspension Previous Rx's Medication Instructions Recorded ondansetron 4 mg disintegrating 4 mg PO Q6H PRN nausea and 02/03/23 tablet vomiting #14 tabs polyethylene glycol 3350 17 17 g PO BID #238 grams 02/03/23 gram/dose oral powder (Miralax) ferrous sulfate 325 mg (65 mg 325 mg PO DAILY 90 days #90 tabs 02/14/23 iron) tablet fluconazole 150 mg tablet 150 mg PO Q3D 2 doses #2 tabs 03/17/23 (Diflucan) nitrofurantoin 100 mg PO Q12H 3 days #6 caps 03/23/23 monohydrate/macrocrystals 100 mg capsule (Macrobid) omeprazole magnesium 20 mg 20 mg PO BID #30 tabs 03/28/23 tablet,delayed release (Prilosec OTC) miscellaneous medical supply #1 ea 03/30/23 (Blood Pressure Cuff) ondansetron 4 mg disintegrating 4 mg PO Q6H PRN nausea and 04/01/23 tablet vomiting #14 tabs sumatriptan succinate 50 mg tablet 50 mg PO Q2-4H PRN migraine 04/13/23 headache #10 tabs metronidazole 500 mg tablet 500 mg PO BID #14 tabs 04/20/23 chlorthalidone 25 mg tablet 25 mg PO DAILY #30 tabs 04/29/23 losartan 50 mg tablet 50 mg PO DAILY #30 tabs 06/09/23 amlodipine 5 mg tablet 5 mg PO DAILY 30 days #30 tabs 07/17/23 Allergies Allergy/AdvReac Type Severity Reaction Status Date / Time amoxicillin [AMOXICILLIN] Allergy Unknown UNKNOWN Verified 08/29/23 04:08 clavulanic acid Allergy Unknown Unknown Verified 08/29/23 04:08 [From Augmentin] cyclobenzaprine Allergy Palpitation Verified 08/29/23 04:08 [From Flexeril] s escitalopram Allergy Palpitation Verified 08/29/23 04:08 s lorazepam [From Ativan] Allergy Palpitation Verified 08/29/23 04:08 s Review of Systems 2 Review of Systems: Constitutional : No Weight loss, No Fever, pos Chills, pos sweats ENT/Mouth : No sore throat, No Rhinorrhea Eyes: No Eye Pain, No Swelling Cardiovascular : pos Chest Pain, no SOB, no Dyspnea on Exertion, No Orthopnea, No Edema, pos Palpitations Respiratory : No Cough, No Sputum Gastrointestinal : no Nausea, No Vomiting, No Diarrhea, No abdominal Pain, No Hematochezia, No Melena Genitourinary : No Dysuria, No Urinary Frequency Musculoskeletal : No joint pain, No Myalgias, No Joint Swelling Skin : No Skin Lesions, No rash Neuro : No Weakness, No Numbness, No Dizziness, No Headache Psych : No Anxiety/Panic, No Depression All other systems reviewed and are negative [facility] Past Medical History Attestation statement: The following information was validated with the patient. Source: old records reviewed Medical History Breast pain, left Overweight (BMI 25.0-29.9) Heavy menses Chronic constipation GERD without esophagitis Anemia HTN (hypertension) Anxiety Surgical History H/O tooth extraction (~12/10/22) H/O: Family History Family History Paternal Aunt Breast cancer, Onset Age: 35 Maternal Aunt Breast cancer, Onset Age: 40 Other Diabetes High cholesterol Hypertension Social History Social History Housing: House Alcohol intake: never Patient Tobacco Use Status: Never used Tobacco Smoked in Last 30 Days: No e-Cigarette/Vaping Use: Never Used Use of substances other than those prescribed or required for medical reasons: No Advance Directives: No Advance Directives Information Provided: No Patient : No service: No Current occupational status: unemployed Cognitive needs: No Hearing needs: No Vision needs: No Physical Exam 2 Vital Signs: Vital Signs: Last Vital Signs Temp 99 F 08/29/23 04:10 Pulse 80 08/29/23 05:07 Resp 16 08/29/23 05:07 BP 154/92 H 08/29/23 05:32 Pulse Ox 98 08/29/23 05:07 O2 Del Method Room Air 08/29/23 05:07 BMI result Body Mass Index 27.5 Appearance: Alert. Oriented X3. No acute distress. Eyes: Pupils equal, round and reactive to light. ENT: Pharynx normal. Neck: Normal inspection. Neck supple. CVS: Normal heart rate and rhythm. Pulses normal. Respiratory: No respiratory distress. Breath sounds normal. Abdomen: Soft and nontender. Skin: Skin warm and dry. Normal skin color. Normal skin turgor. Extremities: No lower extremity edema. No calf ttp Neuro: Oriented X 3. No motor deficit. No sensory deficit. Course Course Course Narrative: 2 trop flat stable for DC Medications Administered Discontinued Medications Generic Name Dose Route Start Last Admin Trade Name Bob PRN Reason Stop Dose Admin Acetaminophen 650 mg 08/29/23 04:54 08/29/23 05:09 Acetaminophen 325 Mg Tablet PO 08/29/23 04:55 650 mg ONCE ONE Administration Hydroxyzine HCl 25 mg 08/29/23 04:55 08/29/23 05:09 Hydroxyzine Hcl 25 Mg Tablet PO 08/29/23 04:56 25 mg ONCE ONE Administration Sodium Chloride 1,000 mls @ 999 mls/hr 08/29/23 05:00 08/29/23 06:20 Ns IV 08/29/23 06:00 Infused .Q1H1M [facility] Infusion Medical Decision Making Medical Decision Making MDM Narrative: 28 yo female with PMH of HTN, hyperglycemia, anemia, GERD, here with atypical symptoms of sweats, hot flashes, palpitations, chills and her BP was high. She reports she is compliant with medications. Her BP is coming down. She states she woke up this way. She is PERC negative. At this time will offer fluids, check viral panel, hcg, trop x 2, CXR and anti anxiety. She has no focal deficits to suggest stroke. Her BP is coming down without any interventions Differential Diagnosis Differential Diagnoses: The differential diagnosis associated with the presentation includes atypical chest pain, , viral syndrome Admission/Observation Consideration of admission/observation: Escalation of care including admission/observation considered negative work up stable for DC Lab Data [facility] Lab Attestation statement: I reviewed the patient's lab results. 08/29/23 04:07 08/29/23 04:07 Labs: Lab Results 08/29/23 08/29/23 08/29/23 Range/Units 04:07 04:13 05:59 WBC 9.9 (4.8-10.8) X10*3/uL RBC 4.72 (4.20-5.50) X10*6/uL Hgb 10.5 L (12.0-16.0) g/dl Hct 34.3 L (37.0-47.0) % MCV 72.7 L (80.0-98.0) fL MCH 22.2 L (27.0-33.0) pg MCHC 30.6 L (31.0-35.0) g/dl RDW 15.1 (11.0-16.0) % Plt Count 307 (160-400) X10*3/uL MPV 10.8 (9.4-12.3) fL Immature Gran % (Auto) 0.2 (0.0-0.4) % Neut % (Auto) 56.1 (45-73) % Lymph % (Auto) 32.2 (20-40) % [place] % (Auto) 7.7 (2-11) % Eos % (Auto) 2.9 (0-4) % Baso % (Auto) 0.9 (0-2) % Lymph # (Auto) 3.2 (1.2-4.9) X10*3/uL [place] # (Auto) 0.8 (0.1-1.2) X10*3/uL Eos # (Auto) 0.3 (0.0-0.4) X10*3/uL Baso # (Auto) 0.1 (0.0-0.2) X10*3/uL Abs Immat Gran (auto) 0.02 (0.00-0.03) X10*3/uL Absolute Neuts (auto) 5.5 (2.0-8.3) x10*3/uL Absolute Nucleated RBC 0.000 (0.0-0.012) X10*3/uL Nucleated RBC % (auto) 0.0 (0.0-0.2) /100WBC Sodium 141 (135-145) mmol/L Potassium 3.7 (3.3-5.1) mmol/L Chloride 108 (96-108) mmol/L Carbon Dioxide 23 (22-29) mmol/L Anion Gap 14 (12-20) BUN 12 (9-16) mg/dL Creatinine 0.75 (0.5-1.4) mg/dL Estim Creat Clear Calc 112.0 Estimated GFR > 60 Random Glucose 108 (60-115) mg/dL Calcium 9.5 D (8.4-10.2) mg/dL Total Bilirubin 0.3 (0.0-1.0) mg/dL AST 15 (5-31) U/L ALT 17 (0-31) U/L Alkaline Phosphatase 68 (39-117) U/L Troponin I High Sens < 2.7 < 2.7 (<3.5-17.0) ng/L Total Protein 7.7 (6.5-8.0) g/dL Albumin 4.2 (3.5-5.0) g/dL Beta HCG, Quant < 2 mIU/mL Influenza Type A (PCR) NEGATIVE (Negative) Influenza Type B (PCR) NEGATIVE (Negative) RSV RNA Qual (PCR) NEGATIVE (Negative) SARS-CoV-2 RNA (RT-PCR) NEGATIVE (Negative) Independent Interpretation I performed an independent interpretation of an: EKG and Plain X-Ray (normal ) Interpretation: Rate: 78 Rhythm: NSR [place]: normal, LVH Normal P waves. Normal LORE. Normal QRS complex. ST T wave : normal no MARIA T, inverted t wave III qTC: normal prior studies: no acute ischemia The study has been interpreted contemporaneously by me. . Radiology Impression Discussion of test interpretation with radiology: I have reviewed the radiologist's reading. Independent Historian Clinical information obtained from an independent historian. History obtained from or confirmed by: EMS External Record Review External record reviewed: Office record Discharge Plan Discharge Clinical Impression: Heart palpitations HTN (hypertension) Qualifiers: Hypertension type: unspecified Qualified Code(s): I10 - Essential (primary) hypertension Patient Disposition: Home, Self-Care Instructions: Heart Palpitations (ED), Hypertension (ED) Additional Instructions: return for worsening pain, confusion, vomiting, no improvement or any other concerns. take your medications as prescribed Regrese si el dolor empeora, confusi?n, v?mitos, si no hay mejor?a o si tiene alguna otra inquietud. tome rosey medicamentos seg?n lo recetado Prescriptions: No Action fluconazole [Diflucan] 150 mg tablet 150 mg PO Q3D Qty: 2 0RF (DME) Blood Pressure Cuff Misc See Rx Instructions .ROUTE .MEDSUPPLY Qty: 1 0RF Rx Instructions: As directed sumatriptan succinate 50 mg tablet 50 mg PO Q2-4H PRN (Reason: migraine headache) Qty: 10 1RF Rx Instructions: do not exceed 4 doses per 24 hrs metronidazole 500 mg tablet 500 mg PO BID Qty: 14 0RF losartan 50 mg tablet 50 mg PO DAILY Qty: 30 3RF amlodipine 5 mg tablet 5 mg PO DAILY 30 Days Qty: 30 3RF ondansetron 4 mg tablet,disintegrating 4 mg PO Q6H PRN (Reason: nausea and vomiting) Qty: 14 0RF chlorthalidone 25 mg tablet 25 mg PO DAILY Qty: 30 0RF polyethylene glycol 3350 [Miralax] 17 gram/dose powder 17 g PO BID Qty: 238 0RF ondansetron 4 mg tablet,disintegrating 4 mg PO Q6H PRN (Reason: nausea and vomiting) Qty: 14 0RF omeprazole magnesium [Prilosec OTC] 20 mg tablet,delayed release (DR/EC) 20 mg PO BID Qty: 30 0RF ferrous sulfate 325 mg (65 mg iron) tablet 325 mg PO DAILY 90 Days Qty: 90 1RF sucralfate 100 mg/mL suspension 10 ml PO QID nitrofurantoin monohyd/m-cryst [Macrobid] 100 mg capsule 100 mg PO Q12H 3 Days Qty: 6 0RF Rx Instructions: must administer with a meal/food Print Language: Arabic
--- NOTE | 2023-08-29 04:46 | PC.NURSE ---
pt biba from home reporting onset of chest pressure. pt reports after chest pressure began she had an episode of diarrhea. pt reports cough and sore throat as well. pt denies n/v. pt denies being around any sick contacts. pt normal sinus on tele . iv established and labs obtained at this time.
[2023-08-29 04:54] LABS: Influenza A PCR NEGATIVE (Negative); Influenza B PCR NEGATIVE (Negative); Resp Syncy Virus RNA Qual PCR NEGATIVE (Negative); SARS COV2 PCR INHOUSE NEGATIVE (Negative)
[2023-08-29 05:07] VITALS: BP 145/79; PULSE 80; RESP 16; O2SAT 98
[2023-08-29] MEDS: Acetaminophen 325 MG TABLET 650 MG PO (05:09)
[2023-08-29] MEDS: 0.9 % Sodium Chloride 1,000 ML 999 ML IV (05:09)
[2023-08-29] MEDS: hydrOXYzine HCL 25 MG TABLET PO (05:09)
--- NOTE | 2023-08-29 05:13 | PC.NURSE ---
pt medicated per mar at this time. vss.
[2023-08-29 05:18] LABS: HCG Quantitative < 2 mIU/mL
[2023-08-29 05:32] VITALS: BP 154/92
[2023-08-29 06:28] LABS: Troponin-I High Sensitivity < 2.7 ng/L (<3.5-17.0)
== END 2023-08-29 06:42 | disposition home or self-care (01) ==
PROVIDERS: Emergency Provider Emergency Medicine; PCP Internal Medicine
DX: R07.89 Other chest pain (principal); R00.2 Palpitations; F41.0 Panic disorder [episodic paroxysmal anxiety]; I10 Essential (primary) hypertension; Z79.899 Other long term (current) drug therapy; Z20.822 Contact with and (suspected) exposure to COVID-19; Z20.828 Contact with and (suspected) exposure to other viral communicable diseases
CPT/HCPCS: 0241U; 36415; 71045; 80053; 84484; 84702; 85025; 93005; 96360; 99284; 99285

== ENCOUNTER → 2023-08-29 04:04 | Outpatient (BNV) | payer OTHER, SELFPAY | PROVIDERS: Emergency Provider Emergency Medicine; PCP Internal Medicine; Visit Provider Internal Medicine Cardiovascular Disease | DX: R07.9 Chest pain, unspecified (principal) | CPT/HCPCS: 93010 ==

== ENCOUNTER 2023-08-31 16:44 | Emergency (ER) | payer OTHER, SELFPAY ==
[2023-08-31 18:26] VITALS: BP 152/100; PULSE 81; RESP 18; TEMP 36.6; O2SAT 100; BMI 30.4
--- NOTE | 2023-08-31 18:26 | ED_ITS ---
HPI - General Adult General Chief complaint: Nausea/Vomiting/Diarrhea Stated complaint: covid +/diarrhea/vomiting blood Time Seen by Provider: 08/31/23 22:44 Source: patient Mode of arrival: ambulatory Limitations: no limitations History of Present Illness HPI narrative: Patient is deaf anxiety hypertension GERD been sick for last 3 days was seen here on 08/29 for feeling weak with fluctuating blood pressure workup was negative was seen at [facility] yesterday for nausea vomiting diagnosed as COVID comes here as she vomited small amount of bright red blood earlier with epigastric pain also having watery stool Related Data Home Medications Medication Instructions Recorded Confirmed sucralfate 100 mg/mL oral 10 ml PO QID 03/23/23 03/30/23 suspension Previous Rx's Medication Instructions Recorded ondansetron 4 mg disintegrating 4 mg PO Q6H PRN nausea and 02/03/23 tablet vomiting #14 tabs polyethylene glycol 3350 17 17 g PO BID #238 grams 02/03/23 gram/dose oral powder (Miralax) fluconazole 150 mg tablet 150 mg PO Q3D 2 doses #2 tabs 03/17/23 (Diflucan) nitrofurantoin 100 mg PO Q12H 3 days #6 caps 03/23/23 monohydrate/macrocrystals 100 mg capsule (Macrobid) omeprazole magnesium 20 mg 20 mg PO BID #30 tabs 03/28/23 tablet,delayed release (Prilosec OTC) miscellaneous medical supply #1 ea 03/30/23 (Blood Pressure Cuff) ondansetron 4 mg disintegrating 4 mg PO Q6H PRN nausea and 04/01/23 tablet vomiting #14 tabs sumatriptan succinate 50 mg tablet 50 mg PO Q2-4H PRN migraine 04/13/23 headache #10 tabs metronidazole 500 mg tablet 500 mg PO BID #14 tabs 04/20/23 chlorthalidone 25 mg tablet 25 mg PO DAILY #30 tabs 04/29/23 losartan 50 mg tablet 50 mg PO DAILY #30 tabs 06/09/23 amlodipine 5 mg tablet 5 mg PO DAILY 30 days #30 tabs 07/17/23 ferrous sulfate 325 mg (65 mg 325 mg PO DAILY 90 days #90 tabs 08/31/23 iron) tablet hydroxyzine HCl 50 mg tablet 50 mg PO BID PRN anxiety #14 tabs 09/01/23 loperamide 2 mg tablet (Imodium 2 mg PO Q6H PRN loose stool #14 09/01/23 A-D) tabs ondansetron 4 mg disintegrating 4 mg PO Q6-8H PRN nausea and 09/01/23 tablet vomiting #10 tabs pantoprazole 40 mg tablet,delayed 40 mg PO DAILY #20 tabs 09/01/23 release (Protonix) Allergies Allergy/AdvReac Type Severity Reaction Status Date / Time amoxicillin [AMOXICILLIN] Allergy Unknown UNKNOWN Verified 08/29/23 04:08 clavulanic acid Allergy Unknown Unknown Verified 08/29/23 04:08 [From Augmentin] cyclobenzaprine Allergy Palpitation Verified 08/29/23 04:08 [From Flexeril] s escitalopram Allergy Palpitation Verified 08/29/23 04:08 s lorazepam [From Ativan] Allergy Palpitation Verified 08/29/23 04:08 s Review of Systems 2 Review of Systems: Yes all other systems are reviewed and are negative PMFSH Past Medical History Medical History Breast pain, left Overweight (BMI 25.0-29.9) Heavy menses Chronic constipation GERD without esophagitis Anemia HTN (hypertension) Anxiety Surgical History H/O tooth extraction (~12/10/22) H/O: Family History Family History Paternal Aunt Breast cancer, Onset Age: 35 Maternal Aunt Breast cancer, Onset Age: 40 Other Diabetes High cholesterol Hypertension Social History Social History Housing: House Alcohol intake: never Patient Tobacco Use Status: Never used Tobacco Smoked in Last 30 Days: No e-Cigarette/Vaping Use: Never Used Use of substances other than those prescribed or required for medical reasons: No Advance Directives: No Advance Directives Information Provided: Yes Patient : No service: No Current occupational status: unemployed Cognitive needs: No Hearing needs: No Vision needs: No Physical Exam ED Vital Signs: Vital Signs - 24 hr 08/31/23 18:26 08/31/23 22:39 08/31/23 22:39 Temperature 97.8 F Pulse Rate 81 68 83 Respiratory Rate 18 Blood Pressure 152/100 H 147/84 H 153/87 H Pulse Oximetry 100 Oxygen Delivery Method Room Air 08/31/23 22:39 08/31/23 22:40 Temperature Pulse Rate 85 68 Respiratory Rate 17 Blood Pressure 146/93 H 147/84 H Pulse Oximetry 99 Oxygen Delivery Method Room Air BMI result Body Mass Index 30.4 Appearance: Alert. Oriented X3. No acute distress. Eyes: PERRLA, No Nystagmus ENT: Pharynx normal. Oral Mucosa moist Neck: Normal inspection. Neck supple. CVS: Normal heart rate and rhythm. Pulses normal. Respiratory: No respiratory distress. Equal air entry bilateral, no wheezing/rales/rhonchi Abdomen: Soft , epigastric tenderness Bowel sounds are present, no mass palpable, no CVA tenderness Skin: Skin warm and dry. Normal skin color. Normal skin turgor. Extremities: No lower extremity edema. No calf tenderness Neuro: Oriented X 3. No motor deficit. No sensory deficit.No cerebellar signs , cranial nerves II-XII intact Course Course Course Narrative: RME: 28 yo female with PMH of HTN, hyperglycemia, anemia, GERD, c/o SCOTT, dizziness, weakness, falls due to having no strength , diarrhea x3 days. Went to [place] yesterday for dizziness, convulsions and was diagnosed with COVID. Also reports vomiting blood w/clots 2x today. States was given mecications at [place] and now feels body itching EKG, Labs, UA, Viral testing ordered Full HPI, ROS and PE to be performed by primary ED provider. Medications Administered Discontinued Medications Generic Name Dose Route Start Last Admin Trade Name Freq PRN Reason Stop Dose Admin Al Hydroxide/Mg Hydroxide 30 ml 08/31/23 23:09 09/01/23 00:22 Magnesium Hydrox/Alum Hydrox 30 Ml Oral.Susp PO 08/31/23 23:10 Not Given ONCE ONE Famotidine 20 mg 08/31/23 23:41 09/01/23 00:23 Famotidine/Pf 20 Mg/2 Ml Vial IVPUSH 08/31/23 23:42 20 mg ONCE ONE Administration Sodium Chloride 1,000 mls @ 999 mls/hr 08/31/23 23:40 08/31/23 23:45 Ns IV 09/01/23 00:40 999 mls/hr .Q1H1M ONE Administration Loperamide HCl 4 mg 08/31/23 23:09 09/01/23 00:22 Loperamide Hcl 2 Mg Capsule PO 08/31/23 23:10 Not Given ONCE ONE Ondansetron HCl 4 mg 08/31/23 23:41 09/01/23 00:23 Ondansetron Hcl 4 Mg/2 Ml Vial IVPUSH 08/31/23 23:42 4 mg ONCE ONE Administration Medical Decision Making Medical Decision Making [facility] Narrative: 2330 patient noticed to have seizure episode seems like pseudo seizure with twitching movements and forcefully frothing from the mouth no tongue bite per family patient had similar episode yesterday and 6 months ago she was at [facility] at that time and did not do anything possible panic/anxiety attack patient was given Benadryl last time and she has improved during stay in the ER patient continued to have multiple complaints workup was negative urine shows wbc's but lot of squamous cells likely contaminated Lab Data [facility] Lab Attestation statement: I reviewed the patient's lab results. 08/31/23 19:32 08/31/23 19:32 Labs: Lab Results 08/31/23 08/31/23 Range/Units 19:32 23:42 WBC 6.7 (4.8-10.8) X10*3/uL RBC 4.75 (4.20-5.50) X10*6/uL Hgb 10.4 L (12.0-16.0) g/dl Hct 34.9 L (37.0-47.0) % MCV 73.5 L (80.0-98.0) fL MCH 21.9 L (27.0-33.0) pg MCHC 29.8 L (31.0-35.0) g/dl RDW 15.1 (11.0-16.0) % Plt Count 248 (160-400) X10*3/uL MPV 11.3 (9.4-12.3) fL Immature Gran % (Auto) 0.3 (0.0-0.4) % Neut % (Auto) 53.3 (45-73) % Lymph % (Auto) 29.1 (20-40) % [place] % (Auto) 12.9 H (2-11) % Eos % (Auto) 3.5 (0-4) % Baso % (Auto) 0.9 (0-2) % Lymph # (Auto) 1.9 (1.2-4.9) X10*3/uL [place] # (Auto) 0.9 (0.1-1.2) X10*3/uL Eos # (Auto) 0.2 (0.0-0.4) X10*3/uL Baso # (Auto) 0.1 (0.0-0.2) X10*3/uL Abs Immat Gran (auto) 0.02 (0.00-0.03) X10*3/uL Absolute Neuts (auto) 3.6 (2.0-8.3) x10*3/uL Absolute Nucleated RBC 0.000 (0.0-0.012) X10*3/uL Nucleated RBC % (auto) 0.0 (0.0-0.2) /100WBC PT 12.7 (11.1-13.3) SEC INR 1.0 (0.9-1.1) Sodium 141 (135-145) mmol/L Potassium 4.1 (3.3-5.1) mmol/L Chloride 105 (96-108) mmol/L Carbon Dioxide 27 (22-29) mmol/L Anion Gap 13 (12-20) BUN 10 (9-16) mg/dL Creatinine 0.78 (0.5-1.4) mg/dL Estim Creat Clear Calc 93.2 Estimated GFR > 60 Random Glucose 113 (60-115) mg/dL Calcium 9.2 (8.4-10.2) mg/dL Magnesium 2.2 (1.6-2.6) mg/dL Total Bilirubin 0.2 (0.0-1.0) mg/dL Direct Bilirubin < 0.2 (0.0-0.5) mg/dL AST 20 (5-31) U/L ALT 18 (0-31) U/L Alkaline Phosphatase 61 (39-117) U/L Total Protein 7.9 (6.5-8.0) g/dL Albumin 4.4 (3.5-5.0) g/dL Lipase 31 (8-78) U/L Urine Color Yellow Urine Appearance Turbid Urine pH 5.5 (5.0-9.0) Ur Specific [place] 1.025 (1.005-1.025) Urine Protein Trace (Neg-Trace) mg/dL Urine Glucose (UA) Negative (Negative) mg/dL Urine Ketones Trace (Negative) mg/dL Urine Blood Negative (Negative) Urine Nitrite Negative (Negative) Ur Leukocyte Esterase Large (3+) H (Negative) Urine RBC 0-2 (0-2) /HPF Urine WBC >50 H (0-5) /HPF Ur Squamous Epith Cells >20 (0-2) /HPF Urine Bacteria 1+ (None Seen) Hyaline Casts 3-5 (0-2) /LPF Urine Test NEGATIVE (NEGATIVE) COVID-19 (RAFAEL) Positive A (Negative) COVID-19 Clin Com See Note Influenza Type A (HUA) Negative (Negative) Influenza Type B (HUA) Negative (Negative) Influenza A & B Note See Note Independent Interpretation I performed an independent interpretation of an: EKG Interpretation: Normal sinus rhythm heart rate 72 beats per minute LVH normal interval normal axis no acute ischemia Discharge Plan Discharge Clinical Impression: COVID-19, Gastroenteritis Patient Disposition: Home, Self-Care Instructions: Gastroenteritis (ED), COVID-19 (Coronavirus Disease 2019) (ED) Additional Instructions: Drink plenty of fluids Take medication for the nausea and diarrhea as prescribed Take medication for anxiety that will help in the seizures also Take your blood pressure medication Follow-up with PCP Prescriptions: New ondansetron 4 mg tablet,disintegrating 4 mg PO Q6-8H PRN (Reason: nausea and vomiting) Qty: 10 0RF loperamide [Imodium A-D] 2 mg tablet 2 mg PO Q6H PRN (Reason: loose stool) Qty: 14 0RF hydroxyzine HCl 50 mg tablet 50 mg PO BID PRN (Reason: anxiety) Qty: 14 0RF pantoprazole [Protonix] 40 mg tablet,delayed release (DR/EC) 40 mg PO DAILY Qty: 20 0RF No Action fluconazole [Diflucan] 150 mg tablet 150 mg PO Q3D Qty: 2 0RF (DME) Blood Pressure Cuff Misc See Rx Instructions .ROUTE .MEDSUPPLY Qty: 1 0RF Rx Instructions: As directed sumatriptan succinate 50 mg tablet 50 mg PO Q2-4H PRN (Reason: migraine headache) Qty: 10 1RF Rx Instructions: do not exceed 4 doses per 24 hrs metronidazole 500 mg tablet 500 mg PO BID Qty: 14 0RF losartan 50 mg tablet 50 mg PO DAILY Qty: 30 3RF amlodipine 5 mg tablet 5 mg PO DAILY 30 Days Qty: 30 3RF ferrous sulfate 325 mg (65 mg iron) tablet 325 mg PO DAILY 90 Days Qty: 90 1RF ondansetron 4 mg tablet,disintegrating 4 mg PO Q6H PRN (Reason: nausea and vomiting) Qty: 14 0RF chlorthalidone 25 mg tablet 25 mg PO DAILY Qty: 30 0RF polyethylene glycol 3350 [Miralax] 17 gram/dose powder 17 g PO BID Qty: 238 0RF ondansetron 4 mg tablet,disintegrating 4 mg PO Q6H PRN (Reason: nausea and vomiting) Qty: 14 0RF omeprazole magnesium [Prilosec OTC] 20 mg tablet,delayed release (DR/EC) 20 mg PO BID Qty: 30 0RF sucralfate 100 mg/mL suspension 10 ml PO QID nitrofurantoin monohyd/m-cryst [Macrobid] 100 mg capsule 100 mg PO Q12H 3 Days Qty: 6 0RF Rx Instructions: must administer with a meal/food
--- NOTE | 2023-08-31 18:30 | ECG_ITS ---
Test Reason : WEAKNESS Blood Pressure : / mmHG Vent. Rate : 072 BPM Atrial Rate : 072 BPM P-R Int : 144 ms QRS Dur : 102 ms QT Int : 374 ms P-R-T Axes : 049 037 018 degrees QTc Int : 409 ms Normal sinus rhythm with sinus arrhythmia Minimal voltage criteria for LVH, may be normal variant ( R in aVL ) Borderline ECG When compared with ECG of 29-AUG-2023 04:04, No significant change was found Referred By: Irina Stein Electronically Signed By:TERE MELLO MD
[2023-08-31 19:39] LABS: MANUAL DIFF FLAG NO
[2023-08-31 19:40] LABS: Basophils Absolute Auto 0.1 X10*3/uL (0.0-0.2); Basophils Percent Auto 0.9 % (0-2); Eosinophils Absolute Auto 0.2 X10*3/uL (0.0-0.4); Eosinophils Percent Auto 3.5 % (0-4); Hematocrit 34.9 % (37.0-47.0); Hemoglobin 10.4 g/dl (12.0-16.0); Imm Gran Abs Auto 0.02 X10*3/uL (0.00-0.03); Imm Gran Pct Auto 0.3 % (0.0-0.4); Lymphocytes Absolute Auto 1.9 X10*3/uL (1.2-4.9); Lymphocytes Percent Auto 29.1 % (20-40); Mean Corpuscular HGB Conc 29.8 g/dl (31.0-35.0); Mean Corpuscular Hemoglobin 21.9 pg (27.0-33.0); Mean Corpuscular Volume 73.5 fL (80.0-98.0); Mean Platelet Volume 11.3 fL (9.4-12.3); Monocytes Absolute Auto 0.9 X10*3/uL (0.1-1.2); Monocytes Percent Auto 12.9 % (2-11); Neutrophils Absolute Auto 3.6 x10*3/uL (2.0-8.3); Neutrophils Percent Auto 53.3 % (45-73); Platelet Count 248 X10*3/uL (160-400); Red Blood Count 4.75 X10*6/uL (4.20-5.50); Red Cell Distribution Width 15.1 % (11.0-16.0); White Blood Count 6.7 X10*3/uL (4.8-10.8)
[2023-08-31 19:48] LABS: Prothrombin Time 12.7 SEC (11.1-13.3)
[2023-08-31 19:55] LABS: Alanine Aminotransferase 18 U/L (0-31); Albumin Level 4.4 g/dL (3.5-5.0); Alkaline Phosphatase 61 U/L (39-117); Anion Gap 13 (12-20); Aspartate Amino Transferase 20 U/L (5-31); Bilirubin Direct < 0.2 mg/dL (0.0-0.5); Bilirubin Total 0.2 mg/dL (0.0-1.0); Blood Urea Nitrogen 10 mg/dL (9-16); Calcium 9.2 mg/dL (8.4-10.2); Carbon Dioxide 27 mmol/L (22-29); Chloride 105 mmol/L (96-108); Creatinine Clr Calc Pharmacy 93.2; Estimated Glomerular Filt Rate > 60; Glucose Random 113 mg/dL (60-115); Lipase 31 U/L (8-78); Magnesium 2.2 mg/dL (1.6-2.6); Potassium 4.1 mmol/L (3.3-5.1); Sodium 141 mmol/L (135-145); Total Protein 7.9 g/dL (6.5-8.0)
[2023-08-31 20:01] LABS: COVID-19 Test Positive (Negative); IDNOW Serial# 08D9AD1C; IDNOW Serial# BCCEAD1C; Influenza A Negative (Negative); Influenza B2 Negative (Negative)
[2023-08-31 22:39] VITALS: BP 146/93; BP 147/84; BP 153/87; PULSE 68; PULSE 83; PULSE 85
[2023-08-31 22:40] VITALS: BP 147/84; PULSE 68; RESP 17; O2SAT 99
[2023-08-31] MEDS: 0.9 % Sodium Chloride 1,000 ML 999 ML IV (23:45)
[2023-08-31 23:51] LABS: Appearance Urine Turbid; Color Urine Yellow; Glucose Urine UA Negative (Negative); Leukocyte Esterase Urine Large (3+) (Negative); Nitrite Urine Negative (Negative); PH 5.5 (5.0-9.0); Specific Gravity - Urine 1.025 (1.005-1.025); UMIC TRIGGER UACC YES; UPreg QC Valid YES; Urine Blood Negative (Negative); Urine Ketones Trace mg/dL (Negative); Urine Pregnancy NEGATIVE (NEGATIVE); Urine Protein Trace mg/dL (Neg-Trace)
[2023-08-31 23:56] LABS: Bacteria Urine 1+ (None Seen); RBC Urine 0-2 /HPF (0-2); Squamous Epithelial Cell Urine >20 /HPF (0-2); UACC Culture Trigger YES; WBC Urine >50 /HPF (0-5)
--- NOTE | 2023-09-01 | PC.NURSE ---
this rn assumed care of pt from previous rn @ 2315. po medications ordered, this rn called privacy compliance manager for assistance with [place] speaking pt . while waiting for pipe stem aligner services pt rang call oliveira x2 stating needs assistance, charge out clerk to bedside pt awake and talking made this rn aware. this rn and pipe stem aligner to bedside. pt partner at which time became accusatory of ED staff stating you are treating us like animals this rn noted to be left lateral trembling with drool present. this rn made charge out clerk aware , karthik ball to bedside dr siddiqi made aware. pt placed on cardiac tech, iv placed dr siddiqi to bedside. IVF initiated. no meds given due to pt reported allergy to ativan pt partner remains agitated adn confrontational with dr siddiqi and this internet marketing manager rn aware
[2023-09-01] MEDS: ondansetron HCL 4 MG/2 ML VIAL IVPUSH (00:23)
[2023-09-01] MEDS: Famotidine/PF 20 MG/2 ML VIAL IVPUSH (00:23)
[2023-09-01] MEDS: Loperamide HCl 2 MG CAPSULE 4 MG PO (01:05)
[2023-09-01] MEDS: diphenhydrAMINE HCL 50 MG/ML VIAL 25 MG IVPUSH (01:06)
--- NOTE | 2023-09-01 01:15 | PC.NURSE ---
pt medicated according to mar via iv. pt partner at bedside confronting this rn reporting that previous nurse refused to care for pt because she has covid this rn clarified that this rn was not aware of such situation, this rn apologized if pt or partner felt offended or upset this rn attempted to educate pt partner moving forward this rn is attempting to assist pt as much as possible. pt partner verbalized understanding and appreciation in which continued to bring up previous statements of frustration pt did not verbalize any of the same concerns meteorologist in charge aware md sparrow
[2023-09-01 01:19] VITALS: BP 180/103; PULSE 75; RESP 16; O2SAT 98
[2023-09-01] MEDS: Losartan Potassium 50 MG TABLET PO (01:31)
--- NOTE | 2023-09-01 01:35 | PC.NURSE ---
diversified crops farmer made this rn aware of bp of 180/103 @ 0119. this rn made dr siddiqi aware of BP pt states did not take BP medications as prescribed due to n/v. this rn made dr siddiqi aware losartan 50mg ordered when this rn attempted to medicted pt pt artner states that pt did take BP medications. this rn spoke directly to ptat this time. this rn asked pt if pt took bp medications. pt states I do not remember taking medications, I'm not sure if I took them yesterday or today per pt medicated according to tessa, per md pt safe to discharge after med administration does not need bp recheck. relief charge nurse aware.
--- NOTE | 2023-09-01 01:45 | PC.NURSE ---
diplomatic interpreter/translator utilized for each pt encounter. iv removed, pt provided with discharge packet pt able to take po medications, pt responding to nurse and verbalized understanding of discharge plan. pt needed assistance with utilizing wheelchair at discharge per pt pt felt safe for discharge. pt leaning over to side of wheelchair pt partner picked pt up and placed in car at discharge. charger tester aware md aware
== END 2023-09-01 01:30 | disposition home or self-care (01) ==
PROVIDERS: Physician Assistant; Emergency Provider Internal Medicine; PCP Internal Medicine
DX: U07.1 COVID-19 (principal); R11.2 Nausea with vomiting, unspecified; I49.8 Other specified cardiac arrhythmias; K52.9 Noninfective gastroenteritis and colitis, unspecified; Z79.899 Other long term (current) drug therapy
CPT/HCPCS: 36415; 70450; 71046; 80048; 80076; 81001; 81025; 82140; 82947; 83605; 83690; 83735; 84484; 85025; 85379; 85610; 87086; 87147; 87502; 87635; 93005; 96360; 96361; 96374; 96375; 99284; 99285; J1200; J2405

== ENCOUNTER → 2023-08-31 18:30 | Outpatient (BNV) | payer OTHER, SELFPAY | PROVIDERS: Emergency Provider Internal Medicine; PCP Internal Medicine; Visit Provider Internal Medicine Cardiovascular Disease | DX: I49.9 Cardiac arrhythmia, unspecified (principal) | CPT/HCPCS: 93010 ==

== ENCOUNTER 2023-09-01 16:39 | Emergency (ER) | payer OTHER, SELFPAY ==
--- NOTE | ~2023-09-01 | XR_ITS ---
EXAMINATION: XR CHEST CLINICAL INFORMATION: Chest pain COMPARISON: Chest x-ray August 29, 2023 TECHNIQUE: 2 views of the chest were obtained. 1809 hours FINDINGS: No significant abnormality is noted involving the heart, lungs, mediastinum, bony thorax or soft tissues. XR/XR chest 2V IMPRESSION: Unremarkable examination.
--- NOTE | ~2023-09-01 | CT_ITS ---
CT HEAD WITHOUT CONTRAST CLINICAL INFORMATION: Headaches and weakness. COMPARISON: Head CT 02/10/2023. TECHNIQUE: Contiguous axial imaging was performed from the skull base to vertex without intravenous administration of contrast. This CT examination was performed using dose optimization techniques as appropriate, variously including the following: *Automated exposure control *Adjustment of mA and/or kV according to patient size (this includes techniques or standardized protocols for targeted exams where dose is matched to indication/reason for exam; i.e. extremities or head) *Use of iterative reconstruction technique FINDINGS: There is no intracranial hemorrhage, hydrocephalus, extra-axial surface collection, midline shift, or other herniation pattern. Maldonado to white matter differentiation is diffusely maintained without evidence of an evolved acute territorial infarct. The basilar cisterns are preserved. No significant soft tissue abnormality. No acute osseous abnormality. There is mild mucosal thickening throughout the paranasal sinuses. CT/CT head/brain wo IV con IMPRESSION: No acute intracranial abnormality.
[2023-09-01 16:51] VITALS: BP 160/100; BP 176/104; PULSE 80; PULSE 82; RESP 14; TEMP 37.3; O2SAT 100; O2SAT 97; BMI 29.2
--- NOTE | 2023-09-01 17:02 | ED_ITS ---
HPI - Seizure General Chief Complaint: Seizure Stated Complaint: UNWIT SZ,POSTICTAL,HX OF SZ,COVID + Time Seen by Provider: 09/01/23 16:57 Source: patient and RN notes reviewed Mode of arrival: ambulatory Limitations: no limitations History of Present Illness HPI Narrative: This is a 28-year-old female, past medical history of hypertension, hyperglycemia, anemia, GERD, presenting to the emergency department for evaluation of weakness and partner reporting episode of weakness. Patient has been seen in the emergency department twice in the last week, patient was seen last night and was diagnosed with COVID and gastroenteritis. Partner states that since yesterday, patient has been unable to walk. Partner states that he has been moving her from place to place, moving her to the bathroom as she is too weak to stand on her legs. Patient states that her right side feels more weak than her left. Partner states that earlier today, patient became ?unresponsive?, was still breathing however still performed 3 chest compressions before the ambulance came. MD complaint: possible seizure Onset (ago): day(s) Witnessed: Yes - by Bystander Seizure History: No Place: Home Possible Precipitating Event: none Treatments prior to arrival: none Related Data Home Medications Medication Instructions Recorded Confirmed sucralfate 100 mg/mL oral 10 ml PO QID 03/23/23 03/30/23 suspension Previous Rx's Medication Instructions Recorded ondansetron 4 mg disintegrating 4 mg PO Q6H PRN nausea and 02/03/23 tablet vomiting #14 tabs polyethylene glycol 3350 17 17 g PO BID #238 grams 02/03/23 gram/dose oral powder (Miralax) fluconazole 150 mg tablet 150 mg PO Q3D 2 doses #2 tabs 03/17/23 (Diflucan) nitrofurantoin 100 mg PO Q12H 3 days #6 caps 03/23/23 monohydrate/macrocrystals 100 mg capsule (Macrobid) omeprazole magnesium 20 mg 20 mg PO BID #30 tabs 03/28/23 tablet,delayed release (Prilosec OTC) miscellaneous medical supply #1 ea 03/30/23 (Blood Pressure Cuff) ondansetron 4 mg disintegrating 4 mg PO Q6H PRN nausea and 04/01/23 tablet vomiting #14 tabs sumatriptan succinate 50 mg tablet 50 mg PO Q2-4H PRN migraine 04/13/23 headache #10 tabs metronidazole 500 mg tablet 500 mg PO BID #14 tabs 04/20/23 chlorthalidone 25 mg tablet 25 mg PO DAILY #30 tabs 04/29/23 losartan 50 mg tablet 50 mg PO DAILY #30 tabs 06/09/23 amlodipine 5 mg tablet 5 mg PO DAILY 30 days #30 tabs 07/17/23 ferrous sulfate 325 mg (65 mg 325 mg PO DAILY 90 days #90 tabs 08/31/23 iron) tablet hydroxyzine HCl 50 mg tablet 50 mg PO BID PRN anxiety #14 tabs 09/01/23 loperamide 2 mg tablet (Imodium 2 mg PO Q6H PRN loose stool #14 09/01/23 A-D) tabs ondansetron 4 mg disintegrating 4 mg PO Q6-8H PRN nausea and 09/01/23 tablet vomiting #10 tabs pantoprazole 40 mg tablet,delayed 40 mg PO DAILY #20 tabs 09/01/23 release (Protonix) Allergies Allergy/AdvReac Type Severity Reaction Status Date / Time amoxicillin [AMOXICILLIN] Allergy Unknown UNKNOWN Verified 08/29/23 04:08 clavulanic acid Allergy Unknown Unknown Verified 08/29/23 04:08 [From Augmentin] cyclobenzaprine Allergy Palpitation Verified 08/29/23 04:08 [From Flexeril] s escitalopram Allergy Palpitation Verified 08/29/23 04:08 s lorazepam [From Ativan] Allergy Palpitation Verified 08/29/23 04:08 s Review of Systems 2 Review of Systems: Yes all other systems are reviewed and are negative Constitutional: Constitutional: Reports as per [facility] Past Medical History Attestation statement: The following information was validated with the patient. Medical History Breast pain, left Overweight (BMI 25.0-29.9) Heavy menses Chronic constipation GERD without esophagitis Anemia HTN (hypertension) Anxiety Surgical History H/O tooth extraction (~12/10/22) H/O: Family History Family History Paternal Aunt Breast cancer, Onset Age: 35 Maternal Aunt Breast cancer, Onset Age: 40 Other Diabetes High cholesterol Hypertension Social History Social History Housing: House Alcohol intake: never Patient Tobacco Use Status: Never used Tobacco e-Cigarette/Vaping Use: Never Used service: No Current occupational status: unemployed Cognitive needs: No Hearing needs: No Vision needs: No Physical Exam 2 Vital Signs: Vital Signs: Last Vital Signs Temp 98.3 F 09/02/23 00:03 Pulse 65 09/02/23 00:03 Resp 15 09/02/23 00:03 BP 171/103 H 09/02/23 00:03 Pulse Ox 98 09/02/23 00:03 O2 Del Method Room Air 09/02/23 00:03 BMI result Body Mass Index 29.2 Const: General: cooperative, comfortable and no acute distress O rientation/consciousness: patient oriented x3 Limitations: no limitations HEENT: Other: Moist mucous membranes Head: Yes normal to inspection, Yes normocephalic and Yes atraumatic E ars: hearing grossly normal bilaterally General nose exam: Normal external nose present Face and sinus: Yes normal facial exam Mouth: Normal oral and palatal mucosa present, oropharynx normal and moist mucous membranes Throat: Yes posterior oropharynx normal Eyes: General: appearance normal, both eyes and all related structures E yelids: Yes eyelids normal Conjunctivae: conjunctivae normal Sclerae: s clerae normal Pupils: Equal, round and reactive pupils present EOM: EOMs intact bilaterally Neck: Neck: Yes normal visual inspection, Yes full ROM and Yes no lymphadenopathy Lymphatic: no lymphadenopathy noted Chest: Chest palpation & inspection: normal inspection of the chest Resp: Effort & Inspection: normal respiratory effort and able to speak in complete sentences Auscultation: clear to auscultation bilaterally, no crackles, no rales, no rhonchi and no wheezes Cardio: Rate: regular rate Rhythm: regular rhythm Heart sounds: S1 normal heart sound present and S2 normal heart sound present GI: Inspection: Yes normal to inspection Skin: General skin exam: no rashes or lesions noted Trauma: no lacerations or abrasions Wounds: no wounds Neuro: General: patient oriented x3, moves all extremities and Unable to assess gait Cranial nerves: Yes CN's II-XII intact bilaterally and Yes Equal, round and reactive pupils present Cognition (Neuro): normal cognition Gait exam (Neuro): Unable to assess gait Extrem: General: Yes normal to inspection Right upper extremity: normal to inspection Left upper extremity: normal to inspection Right lower extremity: normal to inspection Left lower extremity: normal to inspection Course Reevaluation(s) Reevaluation #1: Patient still feeling weak, also reporting some dizziness, will medicate with Tylenol and IV fluids, will reassess. Her workup today has been unremarkable. She is neurologically intact, symptoms likely due to pseudoseizures with COVID infection. Time: 22:55 Reevaluation #2: Patient was seen and evaluated by my attending physician given patient's profound weakness and inability to stand. Patient has received half a 1L off IV fluids and states that she is already feeling better and would like to return home. She is able to stand and take several steps on her own. Added D-dimer, will continue to closely monitor. Time: 00:28 Reevaluation #3: D-dimer negative, patient feeling well, much better than when she 1st came in. She would like to be discharged. She is ambulatory. Patient stable for discharge. Time: 02:00 Medications Administered Discontinued Medications Generic Name Dose Route Start Last Admin Trade Name Freq PRN Reason Stop Dose Admin Acetaminophen 975 mg 09/01/23 22:54 09/01/23 23:27 Acetaminophen 325 Mg Tablet PO 09/01/23 22:55 975 mg ONCE ONE Administration Sodium Chloride 1,000 mls @ 999 mls/hr 09/01/23 22:55 09/02/23 01:04 Ns IV 09/01/23 23:55 Infused .Q1H1M ONE Infusion Medical Decision Making Medical Decision Making MDM Narrative: This is a 28-year-old female presenting to the emergency department for evaluation of weakness. Patient was seen in the emergency department yesterday, diagnosed with gastroenteritis and COVID. She is here today as partner states that she has been extremely weak and has not been able to ambulate since she has been home after her discharge last night. On arrival, patient hypertensive at 176/104, all other vital signs within normal limits. Patient nontoxic appearing. Appears tired, however she is neurologically intact. Decreased strength and lower extremities bilaterally. Differential diagnoses include COVID, dehydration, electrolyte abnormality, ICH-unlikely, pseudo-seizure. Differential Diagnosis Differential Diagnoses: The differential diagnosis associated with the presentation includes See above Admission/Observation Consideration of admission/observation: Escalation of care including admission/observation considered Patient would have been admitted to the hospital had her work up had any findings where hospital admission was appropriate and her clinical presentation warranted hospital admission. Lab Data MDM Lab Attestation statement: I reviewed the patient's lab results. 09/01/23 20:02 09/01/23 20:02 Labs: Lab Results 09/01/23 09/01/23 09/01/23 Range/Units 17:13 20:02 21:25 WBC 6.6 (4.8-10.8) X10*3/uL RBC 4.68 (4.20-5.50) X10*6/uL Hgb 10.3 L (12.0-16.0) g/dl Hct 34.1 L (37.0-47.0) % MCV 72.9 L (80.0-98.0) fL MCH 22.0 L (27.0-33.0) pg MCHC 30.2 L (31.0-35.0) g/dl RDW 15.1 (11.0-16.0) % Plt Count 239 (160-400) X10*3/uL MPV 10.7 (9.4-12.3) fL Immature Gran % (Auto) 0.2 (0.0-0.4) % Neut % (Auto) 61.4 (45-73) % Lymph % (Auto) 25.4 (20-40) % Davison % (Auto) 9.7 (2-11) % Eos % (Auto) 2.7 (0-4) % Baso % (Auto) 0.6 (0-2) % Lymph # (Auto) 1.7 (1.2-4.9) X10*3/uL Davison # (Auto) 0.6 (0.1-1.2) X10*3/uL Eos # (Auto) 0.2 (0.0-0.4) X10*3/uL Baso # (Auto) 0.0 (0.0-0.2) X10*3/uL Abs Immat Gran (auto) 0.01 (0.00-0.03) X10*3/uL Absolute Neuts (auto) 4.1 (2.0-8.3) x10*3/uL Absolute Nucleated RBC 0.000 (0.0-0.012) X10*3/uL Nucleated RBC % (auto) 0.0 (0.0-0.2) /100WBC D-Dimer High Sensitivty NG/ML Sodium 138 (135-145) mmol/L Potassium 3.8 (3.3-5.1) mmol/L Chloride 106 (96-108) mmol/L Carbon Dioxide 25 (22-29) mmol/L Anion Gap 11 L (12-20) BUN 9 (9-16) mg/dL Creatinine 0.75 (0.5-1.4) mg/dL Estim Creat Clear Calc 107.2 Estimated GFR > 60 POC Glucose 79 (60-115) mg/dL Random Glucose 87 (60-115) mg/dL Lactic Acid 0.6 (0.5-2.0) mmol/L Calcium 8.8 (8.4-10.2) mg/dL Magnesium 2.2 (1.6-2.6) mg/dL Total Bilirubin 0.3 (0.0-1.0) mg/dL Direct Bilirubin 0.1 (0.0-0.5) mg/dL AST 20 (5-31) U/L ALT 20 (0-31) U/L Alkaline Phosphatase 63 (39-117) U/L Ammonia 34 (13-55) umol/L Troponin I High Sens < 2.7 (<3.5-17.0) ng/L Total Protein 7.4 (6.5-8.0) g/dL Albumin 4.2 (3.5-5.0) g/dL Urine Color Yellow Urine Appearance Cloudy Urine pH 7.5 (5.0-9.0) Ur Specific [place] 1.015 (1.005-1.025) Urine Protein Negative (Neg-Trace) mg/dL Urine Glucose (UA) Negative (Negative) mg/dL Urine Ketones Negative (Negative) mg/dL Urine Blood Negative (Negative) Urine Nitrite Negative (Negative) Ur Leukocyte Esterase Large (3+) H (Negative) Urine RBC 0-2 (0-2) /HPF Urine WBC >50 H (0-5) /HPF Ur Squamous Epith Cells >20 (0-2) /HPF Urine Bacteria 1+ (None Seen) Hyaline Casts 0-2 (0-2) /LPF 09/02/23 Range/Units 00:33 WBC (4.8-10.8) X10*3/uL RBC (4.20-5.50) X10*6/uL Hgb (12.0-16.0) g/dl Hct (37.0-47.0) % MCV (80.0-98.0) fL MCH (27.0-33.0) pg MCHC (31.0-35.0) g/dl RDW (11.0-16.0) % Plt Count (160-400) X10*3/uL MPV (9.4-12.3) fL Immature Gran % (Auto) (0.0-0.4) % Neut % (Auto) (45-73) % Lymph % (Auto) (20-40) % Davison % (Auto) (2-11) % Eos % (Auto) (0-4) % Baso % (Auto) (0-2) % Lymph # (Auto) (1.2-4.9) X10*3/uL [place] # (Auto) (0.1-1.2) X10*3/uL Eos # (Auto) (0.0-0.4) X10*3/uL Baso # (Auto) (0.0-0.2) X10*3/uL Abs Immat Gran (auto) (0.00-0.03) X10*3/uL Absolute Neuts (auto) (2.0-8.3) x10*3/uL Absolute Nucleated RBC (0.0-0.012) X10*3/uL Nucleated RBC % (auto) (0.0-0.2) /100WBC D-Dimer High Sensitivty < 150 NG/ML Sodium (135-145) mmol/L Potassium (3.3-5.1) mmol/L Chloride (96-108) mmol/L Carbon Dioxide (22-29) mmol/L Anion Gap (12-20) BUN (9-16) mg/dL Creatinine (0.5-1.4) mg/dL Estim Creat Clear Calc Estimated GFR POC Glucose (60-115) mg/dL Random Glucose (60-115) mg/dL Lactic Acid (0.5-2.0) mmol/L Calcium (8.4-10.2) mg/dL Magnesium (1.6-2.6) mg/dL Total Bilirubin (0.0-1.0) mg/dL Direct Bilirubin (0.0-0.5) mg/dL AST (5-31) U/L ALT (0-31) U/L Alkaline Phosphatase (39-117) U/L Ammonia (13-55) umol/L Troponin I High Sens (<3.5-17.0) ng/L Total Protein (6.5-8.0) g/dL Albumin (3.5-5.0) g/dL Urine Color Urine Appearance Urine pH (5.0-9.0) Ur Specific [place] (1.005-1.025) Urine Protein (Neg-Trace) mg/dL Urine Glucose (UA) (Negative) mg/dL Urine Ketones (Negative) mg/dL Urine Blood (Negative) Urine Nitrite (Negative) Ur Leukocyte Esterase (Negative) Urine RBC (0-2) /HPF Urine WBC (0-5) /HPF Ur Squamous Epith Cells (0-2) /HPF Urine Bacteria (None Seen) Hyaline Casts (0-2) /LPF Independent Interpretation I performed an independent interpretation of an: EKG Interpretation: EKG normal sinus rhythm at a ventricular rate of 80 beats per minute, OH interval 140, no ST elevation or depression. Radiology Impression Discussion of test interpretation with radiology: I have reviewed the radiologist's reading. Radiologist Impression: CT HEAD WITHOUT CONTRAST CLINICAL INFORMATION: Headaches and weakness. COMPARISON: Head CT 02/10/2023. TECHNIQUE: Contiguous axial imaging was performed from the skull base to vertex without intravenous administration of contrast. This CT examination was performed using dose optimization techniques as appropriate, variously including the following: *Automated exposure control *Adjustment of mA and/or kV according to patient size (this includes techniques or standardized protocols for targeted exams where dose is matched to indication/reason for exam; i.e. extremities or head) *Use of iterative reconstruction technique FINDINGS: There is no intracranial hemorrhage, hydrocephalus, extra-axial surface collection, midline shift, or other herniation pattern. Maldonado to white matter differentiation is diffusely maintained without evidence of an evolved acute territorial infarct. The basilar cisterns are preserved. No significant soft tissue abnormality. No acute osseous abnormality. There is mild mucosal thickening throughout the paranasal sinuses. CT/CT head/brain wo IV con IMPRESSION: No acute intracranial abnormality. Dictated By: Bc Robert MD External Record Review External record reviewed: Inpatient record, Office record, Outpatient record, Prior outpatient labs, Prior outpatient radiology, Primary care record and Outside ED record Critical Care Time Critical Care Time Critical Care Time: Yes Total Critical Care Time: 35 Attestation: I have personally provided critical care time exclusive of time spent on separately billable procedures. Time includes review of lab data, radiology results, discussion with consultants, and monitoring for potential decompensation. Intervention performed as documented. Discharge Plan Discharge Clinical Impression: COVID-19, Weakness Patient Disposition: Home, Self-Care Instructions: Weakness (ED), COVID-19 (Coronavirus Disease 2019) (ED) Additional Instructions: Your seen in the emergency department due to weakness. This is likely due to your COVID infection. Your symptoms improved after receiving IV fluids. Your blood work was reassuring. Your CT scan did not show any abnormalities. It is very important to drink plenty of fluids and get plenty of rest. Please follow-up with your primary care physician. If any new or worsening symptoms occur including but not limited to chest pain, shortness breath, increased weakness, please return for re-evaluation. Prescriptions: No Action fluconazole [Diflucan] 150 mg tablet 150 mg PO Q3D Qty: 2 0RF (DME) Blood Pressure Cuff Misc See Rx Instructions .ROUTE .MEDSUPPLY Qty: 1 0RF Rx Instructions: As directed sumatriptan succinate 50 mg tablet 50 mg PO Q2-4H PRN (Reason: migraine headache) Qty: 10 1RF Rx Instructions: do not exceed 4 doses per 24 hrs metronidazole 500 mg tablet 500 mg PO BID Qty: 14 0RF losartan 50 mg tablet 50 mg PO DAILY Qty: 30 3RF amlodipine 5 mg tablet 5 mg PO DAILY 30 Days Qty: 30 3RF ferrous sulfate 325 mg (65 mg iron) tablet 325 mg PO DAILY 90 Days Qty: 90 1RF ondansetron 4 mg tablet,disintegrating 4 mg PO Q6H PRN (Reason: nausea and vomiting) Qty: 14 0RF chlorthalidone 25 mg tablet 25 mg PO DAILY Qty: 30 0RF ondansetron 4 mg tablet,disintegrating 4 mg PO Q6-8H PRN (Reason: nausea and vomiting) Qty: 10 0RF loperamide [Imodium A-D] 2 mg tablet 2 mg PO Q6H PRN (Reason: loose stool) Qty: 14 0RF hydroxyzine HCl 50 mg tablet 50 mg PO BID PRN (Reason: anxiety) Qty: 14 0RF pantoprazole [Protonix] 40 mg tablet,delayed release (DR/EC) 40 mg PO DAILY Qty: 20 0RF polyethylene glycol 3350 [Miralax] 17 gram/dose powder 17 g PO BID Qty: 238 0RF ondansetron 4 mg tablet,disintegrating 4 mg PO Q6H PRN (Reason: nausea and vomiting) Qty: 14 0RF omeprazole magnesium [Prilosec OTC] 20 mg tablet,delayed release (DR/EC) 20 mg PO BID Qty: 30 0RF sucralfate 100 mg/mL suspension 10 ml PO QID nitrofurantoin monohyd/m-cryst [Macrobid] 100 mg capsule 100 mg PO Q12H 3 Days Qty: 6 0RF Rx Instructions: must administer with a meal/food
[2023-09-01 17:19] VITALS: BP 176/104; TEMP 37.3
--- NOTE | 2023-09-01 17:37 | ECG_ITS ---
Test Reason : SEIZURE Blood Pressure : / mmHG Vent. Rate : 080 BPM Atrial Rate : 080 BPM P-R Int : 140 ms QRS Dur : 102 ms QT Int : 364 ms P-R-T Axes : 040 027 022 degrees QTc Int : 419 ms Normal sinus rhythm Minimal voltage criteria for LVH, may be normal variant ( R in aVL ) Borderline ECG When compared with ECG of 31-AUG-2023 19:27, No significant change was found Referred By: Nanci Poe Electronically Signed By:TERE MELLO MD
[2023-09-01 17:41] LABS: Glucose, Whole Blood 79 mg/dL (60-115)
[2023-09-01 20:07] LABS: MANUAL DIFF FLAG NO
[2023-09-01 20:09] LABS: Basophils Percent Auto 0.6 % (0-2); Eosinophils Absolute Auto 0.2 X10*3/uL (0.0-0.4); Eosinophils Percent Auto 2.7 % (0-4); Hematocrit 34.1 % (37.0-47.0); Hemoglobin 10.3 g/dl (12.0-16.0); Imm Gran Abs Auto 0.01 X10*3/uL (0.00-0.03); Imm Gran Pct Auto 0.2 % (0.0-0.4); Lymphocytes Absolute Auto 1.7 X10*3/uL (1.2-4.9); Lymphocytes Percent Auto 25.4 % (20-40); Mean Corpuscular HGB Conc 30.2 g/dl (31.0-35.0); Mean Corpuscular Volume 72.9 fL (80.0-98.0); Mean Platelet Volume 10.7 fL (9.4-12.3); Monocytes Absolute Auto 0.6 X10*3/uL (0.1-1.2); Monocytes Percent Auto 9.7 % (2-11); Neutrophils Absolute Auto 4.1 x10*3/uL (2.0-8.3); Neutrophils Percent Auto 61.4 % (45-73); Platelet Count 239 X10*3/uL (160-400); Red Blood Count 4.68 X10*6/uL (4.20-5.50); Red Cell Distribution Width 15.1 % (11.0-16.0); White Blood Count 6.6 X10*3/uL (4.8-10.8)
[2023-09-01 20:17] LABS: Ammonia 34 umol/L (13-55)
[2023-09-01 20:21] LABS: Lactic Acid 0.6 mmol/L (0.5-2.0)
[2023-09-01 20:26] LABS: Alanine Aminotransferase 20 U/L (0-31); Albumin Level 4.2 g/dL (3.5-5.0); Alkaline Phosphatase 63 U/L (39-117); Anion Gap 11 (12-20); Aspartate Amino Transferase 20 U/L (5-31); Bilirubin Direct 0.1 mg/dL (0.0-0.5); Bilirubin Total 0.3 mg/dL (0.0-1.0); Blood Urea Nitrogen 9 mg/dL (9-16); Calcium 8.8 mg/dL (8.4-10.2); Carbon Dioxide 25 mmol/L (22-29); Chloride 106 mmol/L (96-108); Creatinine Clr Calc Pharmacy 107.2; Estimated Glomerular Filt Rate > 60; Glucose Random 87 mg/dL (60-115); Magnesium 2.2 mg/dL (1.6-2.6); Potassium 3.8 mmol/L (3.3-5.1); Sodium 138 mmol/L (135-145); Total Protein 7.4 g/dL (6.5-8.0)
[2023-09-01 20:43] LABS: Troponin-I High Sensitivity < 2.7 ng/L (<3.5-17.0)
--- NOTE | 2023-09-01 20:56 | PC.NURSE ---
this RN at bedside for blood draw. after blood was taken pt had blank stare and stared to drool. pt turned to her side, provider notified and came to bedside. episode last less than 2 minutes. no tonic clonic movements noted
[2023-09-01 21:23] VITALS: BP 157/101; PULSE 78; RESP 16; O2SAT 98
[2023-09-01 21:31] LABS: Appearance Urine Cloudy; Color Urine Yellow; Glucose Urine UA Negative (Negative); Leukocyte Esterase Urine Large (3+) (Negative); Nitrite Urine Negative (Negative); PH 7.5 (5.0-9.0); Specific Gravity - Urine 1.015 (1.005-1.025); UMIC TRIGGER UACC YES; Urine Blood Negative (Negative); Urine Ketones Negative (Negative); Urine Protein Negative (Neg-Trace)
[2023-09-01 21:44] LABS: Bacteria Urine 1+ (None Seen); Hyaline Casts Urine 0-2 /LPF (0-2); RBC Urine 0-2 /HPF (0-2); Squamous Epithelial Cell Urine >20 /HPF (0-2); UACC Culture Trigger YES; WBC Urine >50 /HPF (0-5)
[2023-09-01] MEDS: Acetaminophen 325 MG TABLET 975 MG PO (23:27)
[2023-09-01] MEDS: 0.9 % Sodium Chloride 1,000 ML 999 ML IV (23:28)
[2023-09-01 23:58] VITALS: BP 160/94; PULSE 66
[2023-09-01 23:59] VITALS: BP 185/79; PULSE 74
--- NOTE | 2023-09-01 23:59 | PC.NURSE ---
pt given PO tylenol for pain. this RN sat pt all the way up in bed. pt took the pills but immediately coughed and spit one up. only found one pill, others assumed to go down. pt tried to take another sip of water but coughed taking that as well, alot of difficulty swallowing at this time. provider aware
[2023-09-02 00:02] VITALS: BP 175/101; PULSE 80
[2023-09-02 00:03] VITALS: BP 171/103; PULSE 65; RESP 15; TEMP 36.8; O2SAT 98
[2023-09-02 01:03] LABS: D Dimer High Sensitivity < 150 NG/ML
[2023-09-02 02:24] VITALS: BP 146/84; PULSE 75; RESP 16; TEMP 36.7; O2SAT 98
== END 2023-09-02 02:34 | disposition home or self-care (01) ==
PROVIDERS: Physician Assistant Medical; Emergency Provider Internal Medicine; PCP Internal Medicine
DX: U07.1 COVID-19 (principal); R56.9 Unspecified convulsions; R53.1 Weakness; R11.2 Nausea with vomiting, unspecified; R94.31 Abnormal electrocardiogram [ECG] [EKG]; Z79.899 Other long term (current) drug therapy
CPT/HCPCS: 36415; 70450; 71046; 80048; 80076; 81001; 82140; 82947; 83605; 83735; 84484; 85025; 85379; 93005; 96360; 96361; 99284; 99285

== ENCOUNTER → 2023-09-01 17:37 | Outpatient (BNV) | payer OTHER, SELFPAY | PROVIDERS: Emergency Provider Internal Medicine; PCP Internal Medicine; Visit Provider Internal Medicine Cardiovascular Disease | DX: R53.1 Weakness (principal) | CPT/HCPCS: 93010 ==

== ENCOUNTER 2023-10-16 10:27 | Outpatient (AMB) | payer OTHER, SELFPAY ==
--- NOTE | 2023-10-16 10:32 | A.OFFPC_ITS ---
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: Yes Accompanied by: Self / Same As Patient Allergies amoxicillin [AMOXICILLIN] Allergy (Unknown, Verified 10/16/23 11:13) UNKNOWN clavulanic acid [From Augmentin] Allergy (Unknown, Verified 10/16/23 11:13) Unknown cyclobenzaprine [From Flexeril] Allergy (Verified 10/16/23 11:13) Palpitations escitalopram Allergy (Verified 10/16/23 11:13) Palpitations lorazepam [From Ativan] Allergy (Verified 10/16/23 11:13) Palpitations Medication List - Last Reconciled 10/16/23 by Jeffy Gutierrez MD amlodipine 5 mg PO DAILY 30 days chlorthalidone 25 mg PO DAILY ferrous sulfate 325 mg PO DAILY 90 days hydroxyzine HCl 50 mg PO BID PRN losartan 50 mg PO DAILY miscellaneous medical supply (Blood Pressure Cuff) As directed omeprazole magnesium (Prilosec OTC) 20 mg PO BID ondansetron 4 mg PO Q6-8H PRN pantoprazole (Protonix) 40 mg PO DAILY polyethylene glycol 3350 (Miralax) 17 grams PO BID sucralfate 10 mL PO QID sumatriptan succinate 50 mg PO Q2-4H PRN Tobacco use date assessed: 10/16/23 Dental Screening Dental Screen Date: 10/16/23 Did you have a dental visit in the last 12 months?: Yes Did you have a dental problem in the last 6 months where you did not have access to dental care?: No Was dental information given to patient?: Patient has dentist HPI F/U HPI Details Patient comes in today for her follow up visit Was last seen in February 2023 for her initial visit and had multiple tests, labs and referral ordered but so far, it looks like patient only had her labs done and has been seeing her OB-Pressroom Foreman for her heavy menstrual bleeding Has not gotten her pelvic US and upper GI series scheduled or done and has never gotten her neurology and GI referrals scheduled - patient states that she thinks that this is because her phone number back then was outdated and that she had this updated earlier today States that she is still experiencing frequent headaches and notes that her blood sugar would also seem to run low at times and she would feel weak and dizzy when these occur - notes that drinking something with sugar would promptly clear these up in a minute or two She is also requesting for a sleep study as her boyfriend has reportedly noticed and told her that she tends to stop breathing for periods of time at night, delfino ecially when she is sleeping on her left side (?) She has also been on BP meds for the past few months (for HTN) - is supposed to be on Losartan 50 mg QD, Amlodipine 5 mg QD and Chlorthalidone 25 mg QD but she admits that she stopped taking both Amlodipine and Chlorthalidone a couple of months ago when she felt that both medications were causing her heart to race (tachycardia) - thinks that her symptoms got better when she stopped taking both Rx She denies any chest pains, no increased SOB No nausea/vomiting, no abdominal pains; still has frequent heartburns and she continues to struggle with constipation often despite her stool softeners [facility] Medical History Essential hypertension Breast pain, left Overweight (BMI 25.0-29.9) Heavy menses Chronic constipation GERD without esophagitis Anemia HTN (hypertension) Anxiety Surgical History H/O tooth extraction (~12/10/22) H/O: Family History Paternal Aunt Breast cancer, Onset Age: 35 Maternal Aunt Breast cancer, Onset Age: 40 Other Diabetes High cholesterol Hypertension Social History Housing: House Alcohol intake: never Patient Tobacco Use Status: Never used Tobacco e-Cigarette/Vaping Use: Never Used service: No Current occupational status: unemployed Cognitive needs: No Hearing needs: No Vision needs: No Questionnaire PHQ-9 Over the last 2 weeks, how often have you been bothered by any of the following problems? 1. Little interest or pleasure in doing things: not at all 2. Feeling down, depressed, or hopeless: not at all 3. Trouble falling or staying asleep, or sleeping too much: not at all 4. Feeling tired or having little energy: not at all 5. Poor appetite or overeating: not at all 6. Feeling bad about yourself - or that you are a failure or have let yourself or your family down: not at all 7. Trouble concentrating on things, such as reading the newspaper or watching television: not at all 8. Moving or speaking so slowly that other people could have noticed. Or the opposite - being so fidgety or restless that you have been moving around a lot more than usual: not at all 9. Thoughts that you would be better off or of hurting yourself in some way: not at all Total score: 0 Depression Screening Interpretation: Negative Depression Screening Done: Yes 90854 - PHQ-9 Billing: Yes Source: Developed by Drs. Fabio Johnson, Trinity Anand, Neymar Peterson and colleagues, with an educational sherley from [employer]. Thrive Questionnaire Date Thrive assessed: 10/16/23 I am a: Patient What is your living situation today?: I have a steady place to live Within the past 12 months, did the food you bought not last and you didn't have the money to get more?: Never true Within the past 12 months, did you worry whether your food would run out before you got money to buy more?: Never true Do you have trouble paying for medicines?: No Do you have trouble getting transportation to medical appointments?: No Do you have trouble paying your heating and electricity bill?: No Do you have trouble taking care of your child, family member or friend?: No Do you have trouble with day-to-day activities such as bathing, preparing meals, shopping, managing finances, etc.?: No Are you currently unemployed and looking for a job?: No Are you interested in more education?: No Please select the resources that you would like help with: None Currently or been in a relationship where the following occur: no concerns reported THRIVE Score: 0 AUDIT C Alcohol Use Questionnaire (AUDIT-C) 1. How often do you have a drink containing alcohol?: Never Total Score: 0 Score Reviewed/Action Taken: Yes YULIYA-7 AMB Questionnaire YULIYA-7 Date YULIYA - 7 assessed: 10/16/23 Feeling nervous, anxious, or on edge: 0 = Not at all Not being able to stop or control worryin = Not at all Worrying too much about different things: 0 = Not at all Trouble relaxin = Not at all Being so restless that it is hard to sit still: 0 = Not at all Becoming easily annoyed or irritable: 0 = Not at all Feeling afraid as if something awful might happen: 0 = Not at all Total YULIYA-7 score (0-4 normal; 5-9 mild; 10-14 moderate; 15-21 severe): 0 Source: Developed by Drs. Fabio Johnson, Trinity Anand, Neymar Peterson and colleagues, with an educational sherley from [employer]. Review of Systems Const Denies chills, Reports fatigue, Denies fever(s), Reports headache(s) (recurrent - associated with nausea; no photophobia but sees spots ) and Reports stops breathing during sleep (per her boyfriend - see HPI) Eyes Denies blurry vision and Reports spots in vision (during bouts of headaches) ENT Denies dysphagia, Reports dizziness (on and off), Denies otalgia, Reports headache(s) (recurrent - associated with nausea; no photophobia but sees spots ), Denies odynophagia and Denies sore throat Card Denies chest pain, Denies palpitations and Denies dyspnea Resp Denies cough and Denies dyspnea GI Reports abdominal pain (on and off, over the epigastric area), Reports hematochezia (at times), Reports constipation (increased; chronic), Denies dysphagia, Reports heartburn (recurrent), Denies diarrhea, Reports nausea (on and off, mostly with headaches), Denies odynophagia and Denies vomiting Reports abnormal menses (has periods twice a month often), Denies difficulty voiding, Denies nocturia, Reports menorrhagia and Denies dysuria Musc Denies arthralgias Skin/Breast Denies rash Neuro Reports dizziness (on and off) and Reports headache(s) (recurrent - associated with nausea; no photophobia but sees spots ) Endo Reports fatigue and Denies palpitations Physical exam (Primary Care) Vital Signs: Last Vital Signs Pulse 91 10/16/23 10:33 BP 162/100 H 10/16/23 10:33 Pulse Ox 99 10/16/23 10:33 Oxygen Delivery Method Room Air 10/16/23 10:33 BMI result Body Mass Index 26.8 Tobacco/Smoking Status: Tobacco use Status Tobacco use date assessed 10/16/23 10/16/23 10:38 Patient Tobacco Use Status Never used Tobacco 10/16/23 10:38 e-Cigarette/Vaping Use Never Used 10/16/23 10:38 PHQ-9: PHQ-9 Score PHQ-9: Total score 0 10/16/23 10:38 Depression Screening Interpretation: Negative Thrive Assessment: Date of Thrive Assessment Date Thrive assessed 10/16/23 10/16/23 10:38 Currently or been in a relationship where the following occur: no concerns reported Const General: no acute distress and alert HENMT Ears: TM's normal bilaterally and EAC's normal Throat: Yes posterior oropharynx normal and Yes tonsils normal (no TP congesti on) Neck Neck: Yes no lymphadenopathy and Yes supple Thyroid: Thyroid normal Resp Auscultation: clear to auscultation bilaterally, no rales and no wheezes Cardio Rate: regular rate Rhythm: regular rhythm Heart sounds: no murmurs GI Palpation (GI): Soft to palpation and nontender Auscultation: normal bowel sounds Back/Spine/Pelvis Thoracic/Lumbar Spine: thoracic and lumbar spine normal to inspection Skin Rashes: no rashes Extrem General: Yes no clubbing, cyanosis or edema Assessment and Plan Assessment & Plan (1) Frequent headaches: Code(s): R51.9 - Headache, unspecified Plan: Suspect again that her headaches are actually migraine headaches Patient had head CT done in the ER in August 2022 and more recently on 02/10/23 - both head CT came back negative Continue Sumatriptan 50 mg PRN as instructed Will refer her again to neurology for further evaluation and management - she was referred last February 2023 but she did not follow through on her referral (2) GERD without esophagitis: Code(s): K21.9 - Gastro-esophageal reflux disease without esophagitis Plan: Reinforced dietary restrictions Will send her again for an upper GI series for further evaluation; procedure was ordered last year but she did not get this scheduled Continue Omeprazole 20 mg BID for now (3) Chronic constipation: Code(s): K59.09 - Other constipation Plan: States that she's had problems with constipation all her life Encouraged increased oral fluids and dietary fiber Continue Miralax 17 gm QD; patient also takes Mineral oil [place] daily PRN for increased constipation Advised that her iron tablets, which she takes for her anemia, is also contributing to her constipation Will refer her again to GI for further management of her chronic constipation (4) Menometrorrhagia: Code(s): N92.1 - Excessive and frequent menstruation with irregular cycle Plan: States that she's had heavy menstrual bleeding and sometimes has 2 periods a month ever since she had her menstrual period at age 8 Will send her again for pelvic US for further evaluation She was referred to gynecology last year and states that she is now seeing her general machinist regularly for this (5) Essential hypertension: Code(s): I10 - Essential (primary) hypertension Plan: Reinforced low sodium diet - goal is systolic BP of at least 120 mm or less She is supposed to be on Losartan 50 mg QD, Amlodipine 5 mg QD and Chlorthalid one 25 mg QD but patient self-discontinued her Amlodipine and Chlorthalidone a couple of months ago as she felt that both meds were causing her to experience tachycardia (heart-racing) symptoms Have advised patient that her tachycardia may not necessarily be due to the aforementioned meds as a lot of other conditions (including high and uncontrolled BP) can cause her heart to race and beat harder (and faster) Will start her additionally for now on Hydralazine 25 mg TID; she is instructed to continue on Losartan 50 mg QD (will hold Amlodipine and Chlorthalidone for now pending further evaluation) She is also reminded to monitor her BP regularly (6) Anemia: Code(s): D64.9 - Anemia, unspecified Qualifiers: Anemia type: unspecified type Qualified Code(s): D64.9 - Anemia, unspecified Plan: Is most likely due to a combination of iron deficiency and blood loss from her heavy periods Will send her again for some labs for anemia work up Continue Ferrous Sulfate 325 mg QD (7) Multiple episodes of hypoglycemia: Code(s): E16.2 - Hypoglycemia, unspecified Plan: Will send her for some labs DALIA for further evaluation (8) Apneic spell: Code(s): R06.81 - Apnea, not elsewhere classified Plan: Per request, will refer her to Sleep Medicine for further evaluation and management (9) Overweight (BMI 25.0-29.9): Code(s): E66.3 - Overweight Plan: Reinforced diet/exercise as tolerated/lose weight Plan Follow up in 3 months Orders: Orders US pelvic complete Today N92.0 - Excessive and frequent menstruation with regular cycle, N92.1 - Excessive and frequent menstruation with irregular cycle TSH reflex Free T4 Today E78.00 - Pure hypercholesterolemia, unspecified Vitamin D 25-OH Total Today E55.9 - Vitamin D deficiency, unspecified Vitamin B12 and Folate Today E53.8 - Deficiency of other specified B group vitamins [place] upper GI series Today K21.9 - Gastro-esophageal reflux disease without esophagitis, R12 - Heartburn Complete Blood Count Auto Diff Today D64.9 - Anemia, unspecified Comprehensive Counce. Panel Fast Today E78.00 - Pure hypercholesterolemia, unspecified Lipid Panel Today E78.00 - Pure hypercholesterolemia, unspecified UA CC w/rflx Micro + Cult Today R30.0 - Dysuria Erythrocyte Sedimentation Rate Today R51.9 - Headache, unspecified IRON PROFILE Today D50.9 - Iron deficiency anemia, unspecified US renal doppler Today I10 - Essential (primary) hypertension Referrals Gastroenterology Referral K21.9 - Gastro-esophageal reflux disease without esophagitis, K59.09 - Other constipation Neurology Referral R51.9 - Headache, unspecified Sleep Medicine Referral I10 - Essential (primary) hypertension, R06.81 - Apnea, not elsewhere classified Medications: New hydralazine 25 mg PO TID 30 days 90 tabs 2RF Coding Level of Care Code Est Pt Level 4 (68001) Diagnoses Frequent headaches R51.9 GERD without esophagitis K21.9 Chronic constipation K59.09 Menometrorrhagia N92.1 Essential hypertension I10 Anemia, unspecified type D64.9 Anemia type: unspecified type Multiple episodes of hypoglycemia E16.2 Apneic spell R06.81 Overweight (BMI 25.0-29.9) E66.3
[2023-10-16 10:33] VITALS: BP 162/100; PULSE 91; O2SAT 99; BMI 26.8
== END 2023-10-16 11:37 | disposition home or self-care (01) ==
PROVIDERS: PCP Internal Medicine; Visit Provider Internal Medicine
DX: R51.9 Headache, unspecified (principal); K21.9 Gastro-esophageal reflux disease without esophagitis; K59.09 Other constipation; N92.1 Excessive and frequent menstruation with irregular cycle; I10 Essential (primary) hypertension; D64.9 Anemia, unspecified; E16.2 Hypoglycemia, unspecified; R06.81 Apnea, not elsewhere classified; E66.3 Overweight
CPT/HCPCS: 99214

== ENCOUNTER 2023-10-17 07:46 | Outpatient (REF) | payer OTHER, SELFPAY ==
[2023-10-17 08:05] LABS: MANUAL DIFF FLAG NO
[2023-10-17 08:38] LABS: Basophils Absolute Auto 0.1 X10*3/uL (0.0-0.2); Basophils Percent Auto 0.6 % (0-2); Eosinophils Absolute Auto 0.2 X10*3/uL (0.0-0.4); Eosinophils Percent Auto 2.5 % (0-4); Hematocrit 36.4 % (37.0-47.0); Hemoglobin 11.3 g/dl (12.0-16.0); Imm Gran Abs Auto 0.01 X10*3/uL (0.00-0.03); Imm Gran Pct Auto 0.1 % (0.0-0.4); Lymphocytes Absolute Auto 1.6 X10*3/uL (1.2-4.9); Lymphocytes Percent Auto 19.9 % (20-40); Mean Corpuscular Hemoglobin 22.2 pg (27.0-33.0); Mean Corpuscular Volume 71.5 fL (80.0-98.0); Mean Platelet Volume 11.3 fL (9.4-12.3); Monocytes Absolute Auto 0.7 X10*3/uL (0.1-1.2); Monocytes Percent Auto 9.4 % (2-11); Neutrophils Absolute Auto 5.3 x10*3/uL (2.0-8.3); Neutrophils Percent Auto 67.5 % (45-73); Platelet Count 249 X10*3/uL (160-400); Red Blood Count 5.09 X10*6/uL (4.20-5.50); Red Cell Distribution Width 14.6 % (11.0-16.0); White Blood Count 7.9 X10*3/uL (4.8-10.8)
[2023-10-17 09:14] LABS: Alanine Aminotransferase 15 U/L (0-31); Albumin Level 4.4 g/dL (3.5-5.0); Alkaline Phosphatase 69 U/L (39-117); Anion Gap 13 (12-20); Aspartate Amino Transferase 16 U/L (5-31); Bilirubin Total 0.4 mg/dL (0.0-1.0); Blood Urea Nitrogen 14 mg/dL (9-16); Calcium 9.9 mg/dL (8.4-10.2); Carbon Dioxide 24 mmol/L (22-29); Chloride 106 mmol/L (96-108); Cholesterol 122 mg/dL (<200); Estimated Glomerular Filt Rate > 60; Glucose Fasting 98 mg/dL (60-99); HDL Cholesterol 34 mg/dL (>40); Iron 39 mcg/dL (30-160); LDL Cholesterol Calculated 71 mg/dL (<100); Percent Iron Saturation 10 % (15-50); Potassium 3.9 mmol/L (3.3-5.1); Sodium 139 mmol/L (135-145); Total Iron Binding Capacity 403 mcg/dL (228-428); Triglycerides 89 mg/dL (<150); Unsaturated Iron Binding 364 ug/dL
[2023-10-17 09:17] LABS: Erythrocyte Sedimentation Rate 13 MM/HR (0-20)
[2023-10-17 09:32] LABS: TSH reflex Free T4 < 0.01 uIU/mL (0.32-4.0); Vitamin D 25-OH Total 19.1 ng/mL (>30)
[2023-10-17 09:37] LABS: Folate 12.6 ng/mL (> or = 4.0); Vitamin B12 605 pg/mL (200-900)
[2023-10-17 10:58] LABS: Appearance Urine Cloudy; Color Urine Dark Yellow; Glucose Urine UA Negative (Negative); Leukocyte Esterase Urine Large (3+) (Negative); Nitrite Urine Negative (Negative); Specific Gravity - Urine >= 1.030 (1.005-1.025); UMIC TRIGGER UACC YES; Urine Blood Large (3+) (Negative); Urine Ketones Negative (Negative); Urine Protein 30 (1+) mg/dL (Neg-Trace)
[2023-10-17 11:08] LABS: Free T4 (Free Thyroxine) 2.17 ng/dL (0.71-1.85)
[2023-10-17 13:46] LABS: Bacteria Urine 1+ (None Seen); UACC Culture Trigger YES
[2023-10-17 13:47] LABS: Hyaline Casts Urine 0-2 /LPF (0-2)
== END 2023-10-17 07:47 | disposition home or self-care (01) ==
LOC: HO.LAB 07:46
PROVIDERS: PCP Internal Medicine; Visit Provider Internal Medicine
DX: E78.00 Pure hypercholesterolemia, unspecified (principal); E53.8 Deficiency of other specified B group vitamins; R51.9 Headache, unspecified; E55.9 Vitamin D deficiency, unspecified; D64.9 Anemia, unspecified; D50.9 Iron deficiency anemia, unspecified
CPT/HCPCS: 36415; 80053; 80061; 81001; 81003; 82306; 82607; 82746; 83540; 84439; 84443; 85025; 85652; 87086; 87147

== ENCOUNTER 2023-10-18 11:23 | Outpatient (AMB) | payer OTHER, SELFPAY ==
--- NOTE | 2023-10-18 11:37 | A.OFFVIS_ITS ---
Intake Vital Signs 10/18/23 11:39 Height 5 ft 3 in Weight 149 lb 14.629 oz BMI 26.6 BP 114/66 Intake Visit Reasons: tubal consult Allergies amoxicillin [AMOXICILLIN] Allergy (Unknown, Verified 10/16/23 11:13) UNKNOWN clavulanic acid [From Augmentin] Allergy (Unknown, Verified 10/16/23 11:13) Unknown cyclobenzaprine [From Flexeril] Allergy (Verified 10/16/23 11:13) Palpitations escitalopram Allergy (Verified 10/16/23 11:13) Palpitations lorazepam [From Ativan] Allergy (Verified 10/16/23 11:13) Palpitations HPI HPI Comments History of Present Illness Details The patient is presenting for follow-up to discuss the results of her abnormal uterine bleeding workup and options of treatment. The patient was seen initially 6 months ago for abnormal uterine bleeding and The following workup was done.: In 11/04 H&H= 11.3/36.4, TSH less than 0.01 free T4 elevated 04/02 GC and chlamydia were negative. Co testing was done in 04/02 was unsatisfactory due to inflammation Pelvic ultrasound done in 04/02 was unremarkable In addition, the patient had left breast lump left breast ultrasound was ordered, the patient was referred to Dr. Dubon , the patient was seen the plan was to follow-up with Dr. Dubon after breast ultrasound is done, the patient did not go for her breast ultrasound neither scheduled a follow-up appointment. [facility], [facility] Medical History Essential hypertension Breast pain, left Overweight (BMI 25.0-29.9) Heavy menses Chronic constipation GERD without esophagitis Anemia HTN (hypertension) Anxiety Surgical History H/O tooth extraction (~12/10/22) H/O: Family History Paternal Aunt Breast cancer, Onset Age: 35 Maternal Aunt Breast cancer, Onset Age: 40 Other Diabetes High cholesterol Hypertension Social History Housing: House Alcohol intake: never Patient Tobacco Use Status: Never used Tobacco e-Cigarette/Vaping Use: Never Used service: No Current occupational status: unemployed Cognitive needs: No Hearing needs: No Vision needs: No Review of Systems Const All systems reviewed & are unremarkable except as noted in HPI and below Reports as per HPI and Reports no additional complaints GI Reports no additional complaints Reports no additional complaints Assessment & Plan Assessment & Plan (1) Unsatisfactory cervical Papanicolaou smear: Code(s): R87.615 - Unsatisfactory cytologic smear of cervix Plan: Discussed with the patient the results of the Pap smear, recommend repeat Pap, instructions given the patient to schedule a repeat PET appointment within 1-2 weeks. All questions answered, the patient verbalized understanding. (2) Low TSH level: Comment: Elevated free T4 Code(s): R79.89 - Other specified abnormal findings of blood chemistry Plan: The patient was instructed to call her PCP for further management (3) Abnormal uterine bleeding: Code(s): N93.9 - Abnormal uterine and vaginal bleeding, unspecified Plan: Discussed with the patient the results of the work up done and options of treatment including Lysteda, control pills, Mirena IUD, endometrial ablation and hysterectomy. All pros, cons, risks and benefits if each option was discussed with the patient and the patient decided to go ahead with Mirena IUD so a more detailed discussion about it was conducted including mechanism of action, risks (uterine perforation, infection, injury to bladder, bowel, displacement, and others) benefits (hypo menorrhea, amenorrhea, ...). GC/CT will be repeated and the patient was instructed to schedule Mirena IUD insertion on day 1-5 of next cycle after her left breast is cleared from any pathology . All questions answered, the patient verbalized understanding (4) Breast pain, left: Comment: 07:00 o'clock 4 cm from the nipple Code(s): N64.4 - Mastodynia Plan: Left breast ultrasound rescheduled and instructions given the patient to schedule a follow-up appointment after with Dr. Dubon. All questions answered, the patient verbalized understanding Coding Level of Care Code Est Pt Level 3 (35965) Diagnoses Unsatisfactory cervical Papanicolaou smear R87.615 Low TSH level R79.89 Abnormal uterine bleeding N93.9 Breast pain, left N64.4
[2023-10-18 11:39] VITALS: BP 114/66; BMI 26.6
== END 2023-10-18 12:04 | disposition home or self-care (01) ==
LOC: HO.HWS 11:23
PROVIDERS: PCP Internal Medicine; Visit Provider Obstetrics & Gynecology
DX: R87.615 Unsatisfactory cytologic smear of cervix (principal); R79.89 Other specified abnormal findings of blood chemistry; N93.9 Abnormal uterine and vaginal bleeding, unspecified; N64.4 Mastodynia
CPT/HCPCS: 99213

== ENCOUNTER → 2023-10-18 11:23 | Outpatient (BNVA) | payer OTHER, SELFPAY | PROVIDERS: PCP Internal Medicine; Visit Provider Obstetrics & Gynecology | DX: R87.615 Unsatisfactory cytologic smear of cervix (principal); R79.89 Other specified abnormal findings of blood chemistry; N93.9 Abnormal uterine and vaginal bleeding, unspecified; N64.4 Mastodynia | CPT/HCPCS: 99212 ==

== ENCOUNTER 2023-10-18 14:56 | Emergency (ER) | payer OTHER, SELFPAY ==
[2023-10-18 15:15] VITALS: BP 166/92; BP 198/106; PULSE 118; PULSE 135; RESP 18; TEMP 36.7; O2SAT 100; O2SAT 98; BMI 27.8
--- NOTE | 2023-10-18 15:21 | ECG_ITS ---
Test Reason : PALPITATIONS Blood Pressure : / mmHG Vent. Rate : 107 BPM Atrial Rate : 107 BPM P-R Int : 152 ms QRS Dur : 102 ms QT Int : 320 ms P-R-T Axes : 064 041 019 degrees QTc Int : 427 ms Sinus tachycardia Possible Left atrial enlargement Left ventricular hypertrophy ( R in aVL , Romhilt-Soto ) Abnormal ECG When compared with ECG of 01-SEP-2023 17:54, No significant change was found Referred By: Charlee Maldonado Electronically Signed By:RINA BROWN
--- NOTE | 2023-10-18 15:23 | ED_ITS ---
HPI - General Adult General Chief complaint: Seizure Stated complaint: Seizure activity Time Seen by Provider: 10/18/23 15:13 Source: patient Mode of arrival: EMS Limitations: no limitations History of Present Illness HPI narrative: Patient comes to the emergency room complaining of palpitations, lightheadedness. Patient denies chest pain or shortness of breath. Patient complaining of generalized malaise. Patient states that her reported that she had sputum/saliva coming out of the mouth, however patient does not report be unconscious having any seizures. Patient denies any recent illnesses. According to EMS, patient had a seizure yesterday, seen at [facility], given Keppra at discharge. Related Data Home Medications Medication Instructions Recorded Confirmed sucralfate 100 mg/mL oral 10 ml PO QID 03/23/23 10/16/23 suspension Previous Rx's Medication Instructions Recorded polyethylene glycol 3350 17 17 g PO BID #238 grams 02/03/23 gram/dose oral powder (Miralax) omeprazole magnesium 20 mg 20 mg PO BID #30 tabs 03/28/23 tablet,delayed release (Prilosec OTC) miscellaneous medical supply #1 ea 03/30/23 (Blood Pressure Cuff) sumatriptan succinate 50 mg tablet 50 mg PO Q2-4H PRN migraine 04/13/23 headache #10 tabs chlorthalidone 25 mg tablet 25 mg PO DAILY #30 tabs 04/29/23 amlodipine 5 mg tablet 5 mg PO DAILY 30 days #30 tabs 07/17/23 ferrous sulfate 325 mg (65 mg 325 mg PO DAILY 90 days #90 tabs 08/31/23 iron) tablet hydroxyzine HCl 50 mg tablet 50 mg PO BID PRN anxiety #14 tabs 09/01/23 ondansetron 4 mg disintegrating 4 mg PO Q6-8H PRN nausea and 09/01/23 tablet vomiting #10 tabs pantoprazole 40 mg tablet,delayed 40 mg PO DAILY #20 tabs 09/01/23 release (Protonix) losartan 50 mg tablet 50 mg PO DAILY #30 tabs 09/12/23 hydralazine 25 mg tablet 25 mg PO TID 30 days #90 tabs 10/16/23 Allergies Allergy/AdvReac Type Severity Reaction Status Date / Time amoxicillin [AMOXICILLIN] Allergy Unknown UNKNOWN Verified 10/16/23 11:13 clavulanic acid Allergy Unknown Unknown Verified 10/16/23 11:13 [From Augmentin] cyclobenzaprine Allergy Palpitation Verified 10/16/23 11:13 [From Flexeril] s escitalopram Allergy Palpitation Verified 10/16/23 11:13 s lorazepam [From Ativan] Allergy Palpitation Verified 10/16/23 11:13 s Review of Systems 2 Review of Systems: Constitutional : No Weight loss, No Fever, No Chills, No Night Sweats, complaining of fatigue and generalized malaise ENT/Mouth : No Hearing loss, No Ear Pain, No Nasal Congestion, No Sinus Pain, No Hoarseness, No sore throat, No Rhinorrhea, No Swallowing Difficulty Eyes: No Eye Pain, No Swelling, No Redness, No Foreign Body, No Discharge, No Vision Changes Cardiovascular : No Chest Pain, No SOB, No Dyspnea on Exertion, No Orthopnea, No Edema, complaining of Palpitations Respiratory : No Cough, No Sputum, No Wheezing, No Smoke Exposure, No Dyspnea Gastrointestinal : No Nausea, No Vomiting, No Diarrhea, No Constipation, No abdominal Pain, No Hematochezia, No Melena Genitourinary : no irregular bleeding, No Dysuria, No Urinary Frequency, No Hematuria, No Urinary Incontinence, No Urgency, No Flank Pain, No Urinary Flow Changes, No Hesitancy Musculoskeletal : No joint pain, No Myalgias, No Joint Swelling Skin : No Skin Lesions, No rash Neuro : No Weakness, No Numbness, No Paresthesias, No Loss of Consciousness, No Dizziness, No Headache, mild per patient's possible foaming at the mouth the patient does not recall so Psych : No Anxiety/Panic, No Depression, No SI/HI/AH/VH, No Social Issues, Heme/Lymph: No Bruising, No Bleeding,No Lymphadenopathy Endocrine : No Polyuria, No Polydipsia, No Temperature Intolerance PMFSH Past Medical History Medical History Essential hypertension Breast pain, left Overweight (BMI 25.0-29.9) Heavy menses Chronic constipation GERD without esophagitis Anemia HTN (hypertension) Anxiety Surgical History H/O tooth extraction (~12/10/22) H/O: Family History Family History Paternal Aunt Breast cancer, Onset Age: 35 Maternal Aunt Breast cancer, Onset Age: 40 Other Diabetes High cholesterol Hypertension Social History Social History Housing: House Alcohol intake: never Patient Tobacco Use Status: Never used Tobacco e-Cigarette/Vaping Use: Never Used Advance Directives: No Advance Directives Information Provided: No service: No Current occupational status: unemployed Cognitive needs: No Hearing needs: No Vision needs: No Physical Exam ED Vital Signs: Vital Signs - 24 hr 10/18/23 15:15 10/18/23 18:30 Temperature 98.1 F 99.8 F Pulse Rate 118 H 112 H Respiratory Rate 18 18 Blood Pressure 166/92 H 182/98 H Pulse Oximetry 98 99 Oxygen Delivery Method Room Air Room Air BMI result Body Mass Index 27.8 Const Other: Appearance: Alert. Oriented X3. No acute distress. Eyes: Pupils equal, round and reactive to light. ENT: Pharynx normal. Neck: Normal inspection. Neck supple. No lymph nodes noted. No crepitus CVS: Normal heart rate and rhythm. Pulses normal. Normal S1 and S2 Respiratory: No respiratory distress. Breath sounds normal. No Wheezing. No rales Abdomen: Soft and nontender. No rigidity. No distention. Skin: Skin warm and dry. Normal skin color. Normal skin turgor. Extremities: No lower extremity edema. No Lacerations. No Rash Neuro: Oriented X 3. No motor deficit. No sensory deficit. Moving all extremities. No slurred speech. CN 2 through 12 grossly intact Psych: calm, cooperative, anxious Course Course Course Narrative: -all of patient's labs and imaging pending -my interpretation of labs, hematology at baseline, chemistry normal, lactic acid 0.7. Patient is not consistent with a true seizure. Toxicology test negative -there are no records from Psychiatry, Neurology or Cardiology available in patient's chart - In the emergency room, patient had 2 pseudo seizures. Patient was awake, foaming at the mouth, yet she was talking to us and answering questions. -I reviewed patient's medical records from previous visits. Seems that patient comes in with frequent complaints. None of her workup have ever being indicative of nonepileptic seizure. It has been documented in the past that physician's experienced the patient's shaking of the limbs, and were documented as pseudoseizures. -also, last time that the patient was here, she was seen by one of my colleagues, a PA. we assessed the patient together, patient had a very similar presentation. At that visit, I suspect that the patient has a psychiatric condition rather than a medical reason that may explain patient's symptoms. Patient will be discharged. Patient will be provided with the phone number of Cardiology and Neurology Medical Decision Making Medical Decision Making [facility] Narrative: -my interpretation of labs: Hematology and chemistry at baseline. Lactic acid negative. -labs do not seem to be compatible with an epileptic seizure. I reviewed patient's previous medical records, it has been documented the patient may be experiencing to the seizures patient was seen yesterday at [facility] and started Keppra. -I had a thorough conversation with the patient, it seems more likely dilatation is having pseudoseizures. Patient states that she has an appointment pending with neurology. -from month patient describes that she is experiencing, seems like a panic attack leading to pursue seizures. Also, discussed with the patient that he would be in her interest to discuss this with her primary care physician, as she may need to be referred to Psychology/Psychiatry. Patient is agreeable and open to be seen by either specialty -patient's white blood pressure was elevated earlier today. Patient states that yesterday she was started by her PCP on hydrochlorothiazide 25 mg. Differential Diagnosis Differential Diagnoses: The differential diagnosis associated with the presentation includes (Seizure, pseudo-seizure, malingering, anxiety, depression) Admission/Observation Consideration of admission/observation: Escalation of care including admission/observation considered (Given patient's presentation, admission was considered) Lab Data [facility] Lab Attestation statement: I reviewed the patient's lab results. 10/18/23 17:51 10/18/23 17:51 Labs: Lab Results 10/18/23 10/18/23 Range/Units 17:51 17:54 WBC 6.9 (4.8-10.8) X10*3/uL RBC 4.62 (4.20-5.50) X10*6/uL Hgb 10.2 L (12.0-16.0) g/dl Hct 32.8 L (37.0-47.0) % MCV 71.0 L (80.0-98.0) fL MCH 22.1 L (27.0-33.0) pg MCHC 31.1 (31.0-35.0) g/dl RDW 14.6 (11.0-16.0) % Plt Count 245 (160-400) X10*3/uL MPV 11.5 (9.4-12.3) fL Immature Gran % (Auto) 0.3 (0.0-0.4) % Neut % (Auto) 60.8 (45-73) % Lymph % (Auto) 25.5 (20-40) % [place] % (Auto) 10.5 (2-11) % Eos % (Auto) 2.3 (0-4) % Baso % (Auto) 0.6 (0-2) % Lymph # (Auto) 1.8 (1.2-4.9) X10*3/uL [place] # (Auto) 0.7 (0.1-1.2) X10*3/uL Eos # (Auto) 0.2 (0.0-0.4) X10*3/uL Baso # (Auto) 0.0 (0.0-0.2) X10*3/uL Abs Immat Gran (auto) 0.02 (0.00-0.03) X10*3/uL Absolute Neuts (auto) 4.2 (2.0-8.3) x10*3/uL Absolute Nucleated RBC 0.000 (0.0-0.012) X10*3/uL Nucleated RBC % (auto) 0.0 (0.0-0.2) /100WBC PT 12.3 (11.1-13.3) SEC INR 1.0 (0.9-1.1) D-Dimer High Sensitivty < 150 NG/ML Sodium 141 (135-145) mmol/L Potassium 4.5 (3.3-5.1) mmol/L Chloride 111 H (96-108) mmol/L Carbon Dioxide 25 (22-29) mmol/L Anion Gap 10 L (12-20) BUN 9 (9-16) mg/dL Creatinine 0.66 (0.5-1.4) mg/dL Estim Creat Clear Calc 118.8 Estimated GFR > 60 Random Glucose 83 (60-115) mg/dL Lactic Acid 0.7 (0.5-2.0) mmol/L Calcium 9.3 D (8.4-10.2) mg/dL Magnesium 2.2 (1.6-2.6) mg/dL Total Bilirubin 0.2 (0.0-1.0) mg/dL Direct Bilirubin < 0.2 (0.0-0.5) mg/dL AST 17 (5-31) U/L ALT 16 (0-31) U/L Alkaline Phosphatase 62 (39-117) U/L Troponin I High Sens 3.4 (<3.5-17.0) ng/L Total Protein 7.5 (6.5-8.0) g/dL Albumin 4.1 (3.5-5.0) g/dL TSH < 0.01 L (0.32-4.0) uIU/mL Beta HCG, Quant < 2 mIU/mL Urine Color Red A Urine Appearance Clear Urine pH 8.5 (5.0-9.0) Ur Specific [place] <= 1.005 (1.005-1.025) Urine Protein Trace (Neg-Trace) mg/dL Urine Glucose (UA) Negative (Negative) mg/dL Urine Ketones Negative (Negative) mg/dL Urine Blood Large (3+) H (Negative) Urine Nitrite Negative (Negative) Ur Leukocyte Esterase Moderate (2+) H (Negative) Urine RBC >20 H (0-2) /HPF Urine WBC 11-20 H (0-5) /HPF Ur Squamous Epith Cells 0-2 (0-2) /HPF Urine Bacteria None Seen (None Seen) Hyaline Casts 0-2 (0-2) /LPF Urine Opiates Screen Not Detected (Not Detect) Urine Fentanyl Screen Not Detected (Not Detect) Ur Barbiturates Screen Not Detected (Not Detect) Ur Phencyclidine Scrn Not Detected (Not Detect) Ur Amphetamines Screen Not Detected (Not Detect) U Benzodiazepines Scrn Not Detected (Not Detect) Urine Cocaine Screen Not Detected (Not Detect) U Marijuana (THC) Screen Not Detected (Not Detect) Ethyl Alcohol < 10 mg/dL Critical Care Time Critical Care Time Critical Care Time: Yes Total Critical Care Time: 60 Attestation: I have personally provided critical care time. Time includes review of lab data, radiology results, discussion with consultants, and monitoring for potential decompensation. Intervention performed as documented. Discharge Plan Discharge Clinical Impression: Psychogenic nonepileptic seizure Patient Disposition: Home, Self-Care Instructions: Anxiety (ED) Additional Instructions: Please follow-up with your primary care physician tomorrow. If you have any worsening or new symptoms, please return to the emergency room or call 911 Prescriptions: No Action (DME) Blood Pressure Cuff Misc See Rx Instructions .ROUTE .MEDSUPPLY Qty: 1 0RF Rx Instructions: As directed sumatriptan succinate 50 mg tablet 50 mg PO Q2-4H PRN (Reason: migraine headache) Qty: 10 1RF Rx Instructions: do not exceed 4 doses per 24 hrs amlodipine 5 mg tablet 5 mg PO DAILY 30 Days Qty: 30 3RF ferrous sulfate 325 mg (65 mg iron) tablet 325 mg PO DAILY 90 Days Qty: 90 1RF losartan 50 mg tablet 50 mg PO DAILY Qty: 30 3RF chlorthalidone 25 mg tablet 25 mg PO DAILY Qty: 30 0RF ondansetron 4 mg tablet,disintegrating 4 mg PO Q6-8H PRN (Reason: nausea and vomiting) Qty: 10 0RF hydroxyzine HCl 50 mg tablet 50 mg PO BID PRN (Reason: anxiety) Qty: 14 0RF pantoprazole [Protonix] 40 mg tablet,delayed release (DR/EC) 40 mg PO DAILY Qty: 20 0RF polyethylene glycol 3350 [Miralax] 17 gram/dose powder 17 g PO BID Qty: 238 0RF omeprazole magnesium [Prilosec OTC] 20 mg tablet,delayed release (DR/EC) 20 mg PO BID Qty: 30 0RF sucralfate 100 mg/mL suspension 10 ml PO QID hydralazine 25 mg tablet 25 mg PO TID 30 Days Qty: 90 2RF Referrals: Willie Lopez MD [Physician] - 10/23/23
[2023-10-18 17:58] LABS: MANUAL DIFF FLAG NO
[2023-10-18 18:01] LABS: Basophils Percent Auto 0.6 % (0-2); Eosinophils Absolute Auto 0.2 X10*3/uL (0.0-0.4); Eosinophils Percent Auto 2.3 % (0-4); Hematocrit 32.8 % (37.0-47.0); Hemoglobin 10.2 g/dl (12.0-16.0); Imm Gran Abs Auto 0.02 X10*3/uL (0.00-0.03); Imm Gran Pct Auto 0.3 % (0.0-0.4); Lymphocytes Absolute Auto 1.8 X10*3/uL (1.2-4.9); Lymphocytes Percent Auto 25.5 % (20-40); Mean Corpuscular HGB Conc 31.1 g/dl (31.0-35.0); Mean Corpuscular Hemoglobin 22.1 pg (27.0-33.0); Mean Platelet Volume 11.5 fL (9.4-12.3); Monocytes Absolute Auto 0.7 X10*3/uL (0.1-1.2); Monocytes Percent Auto 10.5 % (2-11); Neutrophils Absolute Auto 4.2 x10*3/uL (2.0-8.3); Neutrophils Percent Auto 60.8 % (45-73); Platelet Count 245 X10*3/uL (160-400); Red Blood Count 4.62 X10*6/uL (4.20-5.50); Red Cell Distribution Width 14.6 % (11.0-16.0); White Blood Count 6.9 X10*3/uL (4.8-10.8)
[2023-10-18 18:06] LABS: Prothrombin Time 12.3 SEC (11.1-13.3)
[2023-10-18 18:06] LABS: Appearance Urine Clear; Color Urine Red; Glucose Urine UA Negative (Negative); Leukocyte Esterase Urine Moderate (2+) (Negative); Nitrite Urine Negative (Negative); PH 8.5 (5.0-9.0); Specific Gravity - Urine <= 1.005 (1.005-1.025); UMIC TRIGGER UACC YES; Urine Blood Large (3+) (Negative); Urine Ketones Negative (Negative); Urine Protein Trace mg/dL (Neg-Trace)
[2023-10-18 18:07] LABS: Bacteria Urine None Seen (None Seen); Hyaline Casts Urine 0-2 /LPF (0-2); RBC Urine >20 /HPF (0-2); Squamous Epithelial Cell Urine 0-2 /HPF (0-2); UACC Culture Trigger YES
[2023-10-18 18:08] LABS: Amphetamine Screen Urine Not Detected (Not Detect); Barbiturates, Urine Not Detected (Not Detect); Benzodiazepines Screen Urine Not Detected (Not Detect); Cannabinoid Screen Urine Not Detected (Not Detect); Cocaine Screen Urine Not Detected (Not Detect); Fentanyl, urine Not Detected (Not Detect); Opiate Screen Urine Not Detected (Not Detect); Phencyclidine Screen Urine Not Detected (Not Detect)
[2023-10-18 18:13] LABS: Lactic Acid 0.7 mmol/L (0.5-2.0)
[2023-10-18 18:18] LABS: D Dimer High Sensitivity < 150 NG/ML
[2023-10-18 18:23] LABS: Troponin-I High Sensitivity 3.4 ng/L (<3.5-17.0)
[2023-10-18 18:24] LABS: Ethanol < 10 mg/dL
[2023-10-18 18:25] LABS: Alanine Aminotransferase 16 U/L (0-31); Albumin Level 4.1 g/dL (3.5-5.0); Alkaline Phosphatase 62 U/L (39-117); Anion Gap 10 (12-20); Aspartate Amino Transferase 17 U/L (5-31); Bilirubin Direct < 0.2 mg/dL (0.0-0.5); Bilirubin Total 0.2 mg/dL (0.0-1.0); Blood Urea Nitrogen 9 mg/dL (9-16); Calcium 9.3 mg/dL (8.4-10.2); Carbon Dioxide 25 mmol/L (22-29); Chloride 111 mmol/L (96-108); Creatinine Clr Calc Pharmacy 118.8; Estimated Glomerular Filt Rate > 60; Glucose Random 83 mg/dL (60-115); HCG Quantitative < 2 mIU/mL; Magnesium 2.2 mg/dL (1.6-2.6); Potassium 4.5 mmol/L (3.3-5.1); Sodium 141 mmol/L (135-145); Total Protein 7.5 g/dL (6.5-8.0)
[2023-10-18 18:30] VITALS: BP 182/98; PULSE 112; RESP 18; TEMP 37.7; O2SAT 99
[2023-10-18 18:39] LABS: TSH reflex Free T4 < 0.01 uIU/mL (0.32-4.0)
--- NOTE | 2023-10-18 19:03 | PC.NURSE ---
patient in bathroom, lowered herself to the floor. found foaming at the mouth and shaking. able to follow all commands, eyes tracking movement and answering questions. carried to bed where a rectal temp was obtained. patient now in room 12 resting quietly in room with family at bedside.
[2023-10-18 19:24] LABS: Free T4 (Free Thyroxine) 2.23 ng/dL (0.71-1.85)
--- NOTE | 2023-10-18 19:52 | PC.NURSE ---
assumed care of pt at 191
== END 2023-10-18 20:01 | disposition home or self-care (01) ==
PROVIDERS: Emergency Provider Emergency Medicine; PCP Internal Medicine
DX: F44.5 Conversion disorder with seizures or convulsions (principal); R53.81 Other malaise; I10 Essential (primary) hypertension; Z79.899 Other long term (current) drug therapy
CPT/HCPCS: 36415; 80048; 80076; 80307; 81001; 83605; 83735; 84439; 84443; 84484; 84702; 85025; 85379; 85610; 93005; 99283

== ENCOUNTER → 2023-10-18 15:21 | Outpatient (BNV) | payer OTHER, SELFPAY | PROVIDERS: Emergency Provider Emergency Medicine; PCP Internal Medicine; Visit Provider Internal Medicine | DX: R00.0 Tachycardia, unspecified (principal); R94.31 Abnormal electrocardiogram [ECG] [EKG] | CPT/HCPCS: 93010 ==

== ENCOUNTER 2023-10-19 09:08 | Outpatient (AMB) | payer OTHER, SELFPAY ==
[2023-10-19 09:14] VITALS: BP 150/110; PULSE 97; O2SAT 99; BMI 26.4
--- NOTE | 2023-10-19 09:14 | A.OFFPC_ITS ---
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: Yes Accompanied by: Self / Same As Patient Allergies amoxicillin [AMOXICILLIN] Allergy (Unknown, Verified 10/19/23 09:57) UNKNOWN clavulanic acid [From Augmentin] Allergy (Unknown, Verified 10/19/23 09:57) Unknown cyclobenzaprine [From Flexeril] Allergy (Verified 10/19/23 09:57) Palpitations escitalopram Allergy (Verified 10/19/23 09:57) Palpitations lorazepam [From Ativan] Allergy (Verified 10/19/23 09:57) Palpitations Medication List - Last Reconciled 10/19/23 by Jeffy Gutierrez MD amlodipine 5 mg PO DAILY 30 days chlorthalidone 25 mg PO DAILY ferrous sulfate 325 mg PO DAILY 90 days hydralazine 25 mg PO TID 30 days hydroxyzine HCl 50 mg PO BID PRN losartan 50 mg PO DAILY miscellaneous medical supply (Blood Pressure Cuff) As directed omeprazole magnesium (Prilosec OTC) 20 mg PO BID ondansetron 4 mg PO Q6-8H PRN pantoprazole (Protonix) 40 mg PO DAILY polyethylene glycol 3350 (Miralax) 17 grams PO BID sucralfate 10 mL PO QID sumatriptan succinate 50 mg PO Q2-4H PRN Tobacco use date assessed: 10/19/23 Dental Screening Dental Screen Date: 10/19/23 Did you have a dental visit in the last 12 months?: Yes Did you have a dental problem in the last 6 months where you did not have access to dental care?: No Was dental information given to patient?: Patient has dentist HPI Blood Pressure Follow Up HPI Details Patient comes in today for her HDF follow up visit She was brought to the emergency room yesterday when she complained of palpitations and lightheadedness Her reportedly found her drooling and became concerned and called 911 as patient was just seen at the ER at [facility] a day before for seizures Patient states that she does not recall passing out or experiencing any seizures Review of her ER notes at [facility] a couple of days ago showed that she had several workups done including EKG and an EEG, both of which came out normal She reported being started on some medication for seizures but was advised to not take it when she was being discharged Per ER report from [facility], patient had 2 pseudoseizures while she was being evaluated in the ER - she was noted to be foaming at the mouth but was awake at the time and answering questions appropriately She has had a history of multiple ER visits and have been diagnosed with pseudoseizures in the past She was discharged home with instructions to follow-up with her PCP and patient was also provided with phone numbers for Cardiology and Neurology to contact and schedule follow-up appointments with Patient recalls that when she started taking the most recent blood pressure medication that she was prescribed (Hydralazine 25 mg TID), she started feeling dizzy and weak and she stopped taking it immediately States that she still has on and off headaches; denies any dizziness She denies any chest pains but she continues to experience recurrent palpitations often; denies any increased shortness of breath No nausea / vomiting, no abdominal pain No change in bowel habits noted [facility] Medical History (Updated 10/19/23 @ 10:06 by Jeffy Gutierrez MD) Essential hypertension Breast pain, left Overweight (BMI 25.0-29.9) Heavy menses Chronic constipation GERD without esophagitis Anemia HTN (hypertension) Anxiety Surgical History H/O tooth extraction (~12/10/22) H/O: Family History Paternal Aunt Breast cancer, Onset Age: 35 Maternal Aunt Breast cancer, Onset Age: 40 Other Diabetes High cholesterol Hypertension Social History Housing: House Alcohol intake: never Patient Tobacco Use Status: Never used Tobacco e-Cigarette/Vaping Use: Never Used service: No Current occupational status: unemployed Cognitive needs: No Hearing needs: No Vision needs: No Questionnaire PHQ-9 Over the last 2 weeks, how often have you been bothered by any of the following problems? 1. Little interest or pleasure in doing things: not at all 2. Feeling down, depressed, or hopeless: not at all 3. Trouble falling or staying asleep, or sleeping too much: not at all 4. Feeling tired or having little energy: not at all 5. Poor appetite or overeating: not at all 6. Feeling bad about yourself - or that you are a failure or have let yourself or your family down: not at all 7. Trouble concentrating on things, such as reading the newspaper or watching television: not at all 8. Moving or speaking so slowly that other people could have noticed. Or the opposite - being so fidgety or restless that you have been moving around a lot more than usual: not at all 9. Thoughts that you would be better off or of hurting yourself in some way: not at all Total score: 0 Depression Screening Interpretation: Negative Depression Screening Done: Yes 46294 - PHQ-9 Billing: Yes Source: Developed by Drs. Fabio Johnson, Trinity Anand, Neymar Peterson and colleagues, with an educational sherley from [employer]. Thrive Questionnaire Date Thrive assessed: 10/19/23 I am a: Patient What is your living situation today?: I have a steady place to live Within the past 12 months, did the food you bought not last and you didn't have the money to get more?: Never true Within the past 12 months, did you worry whether your food would run out before you got money to buy more?: Never true Do you have trouble paying for medicines?: No Do you have trouble getting transportation to medical appointments?: No Do you have trouble paying your heating and electricity bill?: No Do you have trouble taking care of your child, family member or friend?: No Do you have trouble with day-to-day activities such as bathing, preparing meals, shopping, managing finances, etc.?: No Are you currently unemployed and looking for a job?: No Are you interested in more education?: No Please select the resources that you would like help with: None Currently or been in a relationship where the following occur: no concerns reported THRIVE Score: 0 AUDIT C Alcohol Use Questionnaire (AUDIT-C) 1. How often do you have a drink containing alcohol?: Never Total Score: 0 Score Reviewed/Action Taken: Yes YULIYA-7 AMB Questionnaire UYLIYA-7 Date YULIYA - 7 assessed: 10/19/23 Feeling nervous, anxious, or on edge: 0 = Not at all Not being able to stop or control worryin = Not at all Worrying too much about different things: 0 = Not at all Trouble relaxin = Not at all Being so restless that it is hard to sit still: 0 = Not at all Becoming easily annoyed or irritable: 0 = Not at all Feeling afraid as if something awful might happen: 0 = Not at all Total YULIYA-7 score (0-4 normal; 5-9 mild; 10-14 moderate; 15-21 severe): 0 Source: Developed by Drs. Fabio Johnson, Trinity Anand, Neymar Peterson and colleagues, with an educational sherley from [employer]. Review of Systems Const Denies chills, Reports fatigue, Denies fever(s), Reports headache(s) (recurrent - associated with nausea; no photophobia but sees spots ) and Reports weakness Eyes Denies blurry vision and Reports spots in vision (during bouts of headaches) ENT Denies dysphagia, Reports dizziness (on and off), Denies otalgia, Reports headache(s) (recurrent - associated with nausea; no photophobia but sees spots ), Denies odynophagia and Denies sore throat Card Denies chest pain, Reports palpitations (describes feeling as on and off palpitations) and Denies dyspnea Resp Denies cough and Denies dyspnea GI Reports abdominal pain (on and off, over the epigastric area), Reports hematochezia (at times), Reports constipation (increased; chronic), Denies dysphagia, Reports heartburn (recurrent), Denies diarrhea, Reports nausea (on and off, mostly with headaches), Denies odynophagia and Denies vomiting Reports abnormal menses (has periods twice a month often), Denies difficulty voiding, Denies nocturia, Reports menorrhagia and Denies dysuria Musc Denies arthralgias Skin/Breast Denies rash Neuro Reports dizziness (on and off), Reports headache(s) (recurrent - associated with nausea; no photophobia but sees spots ), Reports seizure-like activity (see HPI ) and Reports weakness Endo Reports fatigue and Reports palpitations (describes feeling as on and off palpitations) Physical exam (Primary Care) Vital Signs: Last Vital Signs Pulse 97 10/19/23 09:14 BP 150/110 H 10/19/23 09:14 Pulse Ox 99 10/19/23 09:14 Oxygen Delivery Method Room Air 10/19/23 09:14 BMI result Body Mass Index 26.4 Tobacco/Smoking Status: Tobacco use Status Tobacco use date assessed 10/19/23 10/19/23 09:18 Patient Tobacco Use Status Never used Tobacco 10/19/23 09:18 e-Cigarette/Vaping Use Never Used 10/19/23 09:18 PHQ-9: PHQ-9 Score PHQ-9: Total score 0 10/19/23 10:02 Depression Screening Interpretation: Negative Thrive Assessment: Date of Thrive Assessment Date Thrive assessed 10/19/23 10/19/23 09:18 Currently or been in a relationship where the following occur: no concerns reported Const General: no acute distress and alert HENMT Throat: Yes posterior oropharynx normal and Yes tonsils normal (no TP conge stion) Neck Neck: Yes no lymphadenopathy and Yes supple Thyroid: Thyroid normal Resp Auscultation: clear to auscultation bilaterally, no rales and no wheezes Cardio Rate: regular rate Rhythm: regular rhythm Heart sounds: no murmurs GI Palpation (GI): Soft to palpation and nontender Auscultation: normal bowel sounds Back/Spine/Pelvis Thoracic/Lumbar Spine: thoracic and lumbar spine normal to inspection Skin Rashes: no rashes Extrem General: Yes no clubbing, cyanosis or edema Assessment and Plan Assessment & Plan (1) 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 - Conversion disorder with seizures or convulsions Plan: Patient had an EEG done at the ER at [facility] a couple of days ago on 10/18/2023 that came out completely normal She was also reportedly noticed by the ER doctor attending to her yesterday that while she was foaming at the mouth, patient was awake and was talking to them and answering questions appropriately; does not appear to have any postictal phase Patient most likely has pseudoseizures or psychogenic seizures related to her anxiety Will refer her to Neurology for further evaluation and management (2) Frequent headaches: Code(s): R51.9 - Headache, unspecified Plan: Suspect again that her headaches are actually migraine headaches Patient had head CT done in the ER in August 2022 and more recently on 02/10/23 - both head CT came back negative Continue Sumatriptan 50 mg PRN as instructed She has been referred to neurology for further evaluation and management last week (3) Essential hypertension: Code(s): I10 - Essential (primary) hypertension Plan: Reinforced low sodium diet - goal is systolic BP of at least 120 mm or less She is supposed to be on Losartan 50 mg QD, Amlodipine 5 mg QD and Chlorthalidone 25 mg QD but patient self-discontinued her Amlodipine and Chlorthalidone a couple of months ago as she felt that both meds were causing her to experience tachycardia (heart-racing) symptoms She was started additionally on Hydralazine 25 mg TID but ended up with the aforementioned drooling/foaming at the mouth and seizure-like symptoms after supposedly taking the Rx - was determined to have pseudoseizures in the ER yesterday Will cut down her Hydralazine at this time to 10 mg BID and advised her to continue on Losartan 50 mg QD She is again reminded to monitor her BP regularly (4) GERD without esophagitis: Code(s): K21.9 - Gastro-esophageal reflux disease without esophagitis Plan: Reinforced dietary restrictions She was sent again for an upper GI series for further evaluation - ordered a couple of weeks ago; the same procedure was ordered last year but she did not get this scheduled Continue Omeprazole 20 mg BID for now (5) Chronic constipation: Code(s): K59.09 - Other constipation Plan: States that she's had problems with constipation all her life Encouraged increased oral fluids and dietary fiber Continue Miralax 17 gm QD; patient also takes Mineral oil PA daily PRN for increased constipation Advised that her iron tablets, which she takes for her anemia, is also contributing to her constipation She has been referred to GI for further management of her chronic constipation (6) Menometrorrhagia: Code(s): N92.1 - Excessive and frequent menstruation with irregular cycle Plan: States that she's had heavy menstrual bleeding and sometimes has 2 periods a month ever since she had her menstrual period at age 8 A pelvic US was ordered recently for further evaluation Follow up with [facility] as scheduled (7) Anemia: Code(s): D64.9 - Anemia, unspecified Qualifiers: Anemia type: unspecified type Qualified Code(s): D64.9 - Anemia, unspecified Plan: Is most likely due to a combination of iron deficiency and blood loss from her heavy periods Continue Ferrous Sulfate 325 mg QD (8) Anxiety: Code(s): F41.9 - Anxiety disorder, unspecified Plan: Patient appears to have a lot of ongoing anxiety and discussed that a lot of her recent and recurrent symptoms may be influenced or aggravated by her anxiety Will start her on low dose Sertraline 25 mg Q AM; continue Hydroxyzine 50 mg BID PRN (9) Overweight (BMI 25.0-29.9): Code(s): E66.3 - Overweight Plan: Reinforced diet/exercise as tolerated/lose weight Plan Follow up as scheduled in November 2023 Orders: Referrals Neurology Referral F44.5 - Conversion disorder with seizures or convulsions, R51.9 - Headache, unspecified Medications: New sertraline 25 mg PO DAILY 30 days 30 tabs 2RF F41.9 - Anxiety disorder, unspecified Changed From hydralazine 25 mg PO TID 30 days 90 tabs 2RF To hydralazine 10 mg PO BID 30 days 60 tabs 2RF On Hold amlodipine Hold Comment: Doctor's Order 5 mg PO DAILY 30 days 30 tabs 3RF I10 - Essential (primary) hypertension chlorthalidone Hold Comment: Doctor's Order 25 mg PO DAILY 30 tabs 0RF Coding Level of Care Code Est Pt Level 4 (28984) Diagnoses Psychogenic nonepileptic seizure F44.5 Frequent headaches R51.9 Essential hypertension I10 GERD without esophagitis K21.9 Chronic constipation K59.09 Menometrorrhagia N92.1 Anemia, unspecified type D64.9 Anemia type: unspecified type Anxiety F41.9 Overweight (BMI 25.0-29.9) E66.3
== END 2023-10-19 10:11 | disposition home or self-care (01) ==
PROVIDERS: PCP Internal Medicine; Visit Provider Internal Medicine
DX: F44.5 Conversion disorder with seizures or convulsions (principal); R51.9 Headache, unspecified; I10 Essential (primary) hypertension; K21.9 Gastro-esophageal reflux disease without esophagitis; K59.09 Other constipation; N92.1 Excessive and frequent menstruation with irregular cycle; D64.9 Anemia, unspecified; F41.9 Anxiety disorder, unspecified; E66.3 Overweight
CPT/HCPCS: 99214

== ENCOUNTER 2023-10-23 12:42 | Outpatient (REF) | payer OTHER, SELFPAY ==
[2023-10-24 07:54] LABS: Triiodothyronine T3 Total 270 ng/dL (76-181)
== END 2023-10-23 12:43 | disposition home or self-care (01) ==
LOC: HO.LAB 12:42
PROVIDERS: PCP Internal Medicine; Visit Provider Internal Medicine
DX: E05.90 Thyrotoxicosis, unspecified without thyrotoxic crisis or storm (principal); I10 Essential (primary) hypertension
CPT/HCPCS: 36415; 84480

== ENCOUNTER 2023-10-23 15:56 | Emergency (ER) | payer OTHER, SELFPAY ==
[2023-10-23 16:08] VITALS: BP 183/91; PULSE 82; RESP 18; TEMP 37.1; O2SAT 100; BMI 28.1
--- NOTE | 2023-10-23 16:10 | ED.GENADULT ---
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 Patient reports dysuria and states that when she takes the medicine she notices some abdominal distension, patient also reports pain in her back and an episode of diarrhea. Related Data Home Medications Medication Instructions Recorded Confirmed sucralfate 100 mg/mL oral 10 ml PO QID 03/23/23 10/19/23 suspension Previous Rx's Medication Instructions Recorded polyethylene glycol 3350 17 17 g PO BID #238 grams 02/03/23 gram/dose oral powder (Miralax) omeprazole magnesium 20 mg 20 mg PO BID #30 tabs 03/28/23 tablet,delayed release (Prilosec OTC) miscellaneous medical supply #1 ea 03/30/23 (Blood Pressure Cuff) sumatriptan succinate 50 mg tablet 50 mg PO Q2-4H PRN migraine 04/13/23 headache #10 tabs chlorthalidone 25 mg tablet 25 mg PO DAILY #30 tabs 04/29/23 amlodipine 5 mg tablet 5 mg PO DAILY 30 days #30 tabs 07/17/23 ferrous sulfate 325 mg (65 mg 325 mg PO DAILY 90 days #90 tabs 08/31/23 iron) tablet hydroxyzine HCl 50 mg tablet 50 mg PO BID PRN anxiety #14 tabs 09/01/23 ondansetron 4 mg disintegrating 4 mg PO Q6-8H PRN nausea and 09/01/23 tablet vomiting #10 tabs pantoprazole 40 mg tablet,delayed 40 mg PO DAILY #20 tabs 09/01/23 release (Protonix) losartan 50 mg tablet 50 mg PO DAILY #30 tabs 09/12/23 hydralazine 10 mg tablet 10 mg PO BID 30 days #60 tabs 10/19/23 sertraline 25 mg tablet 25 mg PO DAILY 30 days #30 tabs 10/19/23 cefdinir 300 mg capsule 300 mg PO BID 7 days #14 caps 10/24/23 Allergies Allergy/AdvReac Type Severity Reaction Status Date / Time amoxicillin [AMOXICILLIN] Allergy Unknown UNKNOWN Verified 10/23/23 16:14 clavulanic acid Allergy Unknown Unknown Verified 10/23/23 16:14 [From Augmentin] cyclobenzaprine Allergy Palpitation Verified 10/23/23 16:14 [From Flexeril] s escitalopram Allergy Palpitation Verified 10/23/23 16:14 s hydralazine Allergy Nausea and Verified 10/23/23 16:15 Vomiting lorazepam [From Ativan] Allergy Palpitation Verified 10/23/23 16:14 s Review of Systems Review of Systems: Pertinent positives and negatives as stated in [facility] Past Medical History Source: nursing notes reviewed Medical History Essential hypertension Breast pain, left Overweight (BMI 25.0-29.9) Heavy menses Chronic constipation GERD without esophagitis Anemia HTN (hypertension) Anxiety Surgical History H/O tooth extraction (~12/10/22) H/O: Family History Family History Paternal Aunt Breast cancer, Onset Age: 35 Maternal Aunt Breast cancer, Onset Age: 40 Other Diabetes High cholesterol Hypertension Social History Social History Housing: House Alcohol intake: never Patient Tobacco Use Status: Never used Tobacco e-Cigarette/Vaping Use: Never Used Advance Directives: No Advance Directives Information Provided: No service: No Current occupational status: unemployed Cognitive needs: No Hearing needs: No Vision needs: No Physical Exam ED Vital Signs: Vital Signs - 24 hr 10/23/23 16:08 10/23/23 21:05 Temperature 98.7 F 97.9 F Pulse Rate 82 77 Respiratory Rate 18 16 Blood Pressure 183/91 H 158/79 H Pulse Oximetry 100 99 Oxygen Delivery Method Room Air Room Air BMI result Body Mass Index 28.1 VITAL SIGNS: Reviewed. GENERAL: Well developed, well nourished, in no acute distress. HEAD: Normocephalic/atraumatic EYES: PERRLA, EOMI LUNGS: Normal breath sounds. No adventitious sounds or accessory muscle use. SpO2<99> CARDIOVASCULAR: Regular rate and rhythm without noted murmurs ABDOMEN: Soft, non-tender, non-distended with bowel sounds. MUSCULOSKELETAL: No tenderness, deformities, or effusions noted on gross inspection. EXTREMITIES: No cyanosis, clubbing or edema. SKIN: Inspection of the skin reveals no rashes NEUROLOGIC: Alert and oriented x 4. Strength and sensation to light touch were grossly intact x 4. Course Course Course Narrative: RME performed by Madai Spicer PA-C. Patient is a 28 year old assigned female at presenting to the emergency department with abdominal pain and difficulty urinating. Detailed physical exam and review of systems are deferred to the physician assistant primary care. Labs and swabs ordered. Patient placed back in the waiting room pending room availability and results. Medications Administered Discontinued Medications Generic Name Dose Route Start Last Admin Trade Name Freq PRN Reason Stop Dose Admin Acetaminophen 975 mg 10/24/23 01:12 10/24/23 01:37 Acetaminophen 325 Mg Tablet PO 10/24/23 01:13 975 mg ONCE ONE Administration Ceftriaxone Sodium 1 gm/ 50 mls @ 100 mls/hr 10/24/23 01:20 10/24/23 01:36 Sodium Chloride IV 10/24/23 01:49 100 mls/hr ONCE ONE Administration Ibuprofen 400 mg 10/24/23 01:12 10/24/23 01:37 Ibuprofen 400 Mg Tablet PO 10/24/23 01:13 400 mg ONCE ONE Administration Medical Decision Making Medical Decision Making MDM Narrative: 28-year-old female with history and clinical presentation, DDX: Pyelonephritis, cystitis, UTI, antibiotic associated diarrhea. I reviewed all investigations and hematologic indices are negative for leukocytosis or left shift, there is a stable chronic microcytic anemia and no thrombocytopenia. Coagulation studies are within normal limits. Chemistry indices are grossly within normal limits there is no KAYODE/electrolyte or liver enzyme derangement, however on review of patient's thyroid studies she has had a persistent picture of hyper thyroidism since 10/17, I do not appreciate any documentation by the primary care physician regarding these values but patient is description difficulty swallowing as well as clinically noting that patient has mild exophthalmos, there is no obvious indication of a thyroid storm. In addition, urinalysis is significant for nitrite positive/bacteria/wbc's and given patient's complaints of dysuria associated with nausea as well as back discomfort I suspect that patient may be experiencing a pyelonephritis and also because she has not consistently taken any of the antibiotics that she was previously prescribed. 0124: I did discuss the case with the inpatient hospitalist who points out that treatment for hyperthyroidism is outpatient, I will copy my note over to her primary care provider who saw her today and hopefully he will get her in to see him at his earliest convenience as I do suspect that some of her symptoms are not strictly attributable to the antibiotics. Patient receive IV antibiotics in the will be discharged with completing the course of outpatient antibiotics and instructed to follow-up with her primary care doctor. Patient is tolerating oral intake and has not had any diarrheal episodes since yesterday afternoon. Differential Diagnosis Differential Diagnoses: The differential diagnosis associated with the presentation includes Please see the discussion above Admission/Observation Consideration of admission/observation: Escalation of care including admission/observation considered Please see the discussion above Consult Healthcare Provider Management of the patient was discussed with: Hospitalist Please see the discussion above Lab Data MDM Lab Attestation statement: I reviewed the patient's lab results. Please see the discussion above 10/23/23 16:35 10/23/23 16:34 Labs: Lab Results 10/23/23 10/23/23 10/23/23 Range/Units 16:34 16:35 18:55 WBC 9.1 (4.8-10.8) X10*3/uL RBC 5.01 (4.20-5.50) X10*6/uL Hgb 11.0 L (12.0-16.0) g/dl Hct 35.6 L (37.0-47.0) % MCV 71.1 L (80.0-98.0) fL MCH 22.0 L (27.0-33.0) pg MCHC 30.9 L (31.0-35.0) g/dl RDW 14.8 (11.0-16.0) % Plt Count 298 (160-400) X10*3/uL MPV 10.9 (9.4-12.3) fL Immature Gran % (Auto) 0.2 (0.0-0.4) % Neut % (Auto) 72.8 (45-73) % Lymph % (Auto) 17.9 L (20-40) % Granite % (Auto) 7.5 (2-11) % Eos % (Auto) 1.0 (0-4) % Baso % (Auto) 0.6 (0-2) % Lymph # (Auto) 1.6 (1.2-4.9) X10*3/uL Granite # (Auto) 0.7 (0.1-1.2) X10*3/uL Eos # (Auto) 0.1 (0.0-0.4) X10*3/uL Baso # (Auto) 0.1 (0.0-0.2) X10*3/uL Abs Immat Gran (auto) 0.02 (0.00-0.03) X10*3/uL Absolute Neuts (auto) 6.6 (2.0-8.3) x10*3/uL Absolute Nucleated RBC 0.000 (0.0-0.012) X10*3/uL Nucleated RBC % (auto) 0.0 (0.0-0.2) /100WBC PT 13.5 H (11.1-13.3) SEC INR 1.1 (0.9-1.1) APTT 30.9 (26.0-36.8) SEC Sodium 140 (135-145) mmol/L Potassium 4.4 (3.3-5.1) mmol/L Chloride 107 (96-108) mmol/L Carbon Dioxide 25 (22-29) mmol/L Anion Gap 12 (12-20) BUN 12 (9-16) mg/dL Creatinine 0.68 (0.5-1.4) mg/dL Estim Creat Clear Calc 102.9 Estimated GFR > 60 POC Glucose (60-115) mg/dL Random Glucose 93 (60-115) mg/dL Calcium 10.0 D (8.4-10.2) mg/dL Magnesium 2.3 (1.6-2.6) mg/dL Total Bilirubin 0.3 (0.0-1.0) mg/dL AST 27 (5-31) U/L ALT 20 (0-31) U/L Alkaline Phosphatase 70 (39-117) U/L Troponin I High Sens < 2.7 (<3.5-17.0) ng/L Total Protein 8.3 H (6.5-8.0) g/dL Albumin 4.6 (3.5-5.0) g/dL TSH < 0.01 L (0.32-4.0) uIU/mL Free T4 2.17 H (0.71-1.85) ng/dL Beta HCG, Quant < 2 mIU/mL Urine Color Dark Yellow Urine Appearance Turbid Urine pH 6.5 (5.0-9.0) Ur Specific Echo 1.020 (1.005-1.025) Urine Protein 30 (1+) H (Neg-Trace) mg/dL Urine Glucose (UA) Negative (Negative) mg/dL Urine Ketones 15 (Negative) mg/dL Urine Blood Moderate (2+) H (Negative) Urine Nitrite Positive H (Negative) Ur Leukocyte Esterase Large (3+) H (Negative) Urine RBC >20 H (0-2) /HPF Urine WBC >50 H (0-5) /HPF Ur Squamous Epith Cells 6-10 (0-2) /HPF Urine Bacteria 3+ (None Seen) Hyaline Casts 3-5 (0-2) /LPF COVID-19 (RAFAEL) Negative (Negative) COVID-19 Clin Com See Note Influenza Type A (HUA) Negative (Negative) Influenza Type B (HUA) Negative (Negative) Influenza A & B Note See Note 10/23/23 Range/Units 21:09 WBC (4.8-10.8) X10*3/uL RBC (4.20-5.50) X10*6/uL Hgb (12.0-16.0) g/dl Hct (37.0-47.0) % MCV (80.0-98.0) fL MCH (27.0-33.0) pg MCHC (31.0-35.0) g/dl RDW (11.0-16.0) % Plt Count (160-400) X10*3/uL MPV (9.4-12.3) fL Immature Gran % (Auto) (0.0-0.4) % Neut % (Auto) (45-73) % Lymph % (Auto) (20-40) % Granite % (Auto) (2-11) % Eos % (Auto) (0-4) % Baso % (Auto) (0-2) % Lymph # (Auto) (1.2-4.9) X10*3/uL Granite # (Auto) (0.1-1.2) X10*3/uL Eos # (Auto) (0.0-0.4) X10*3/uL Baso # (Auto) (0.0-0.2) X10*3/uL Abs Immat Gran (auto) (0.00-0.03) X10*3/uL Absolute Neuts (auto) (2.0-8.3) x10*3/uL Absolute Nucleated RBC (0.0-0.012) X10*3/uL Nucleated RBC % (auto) (0.0-0.2) /100WBC PT (11.1-13.3) SEC INR (0.9-1.1) APTT (26.0-36.8) SEC Sodium (135-145) mmol/L Potassium (3.3-5.1) mmol/L Chloride (96-108) mmol/L Carbon Dioxide (22-29) mmol/L Anion Gap (12-20) BUN (9-16) mg/dL Creatinine (0.5-1.4) mg/dL Estim Creat Clear Calc Estimated GFR POC Glucose 73 (60-115) mg/dL Random Glucose (60-115) mg/dL Calcium (8.4-10.2) mg/dL Magnesium (1.6-2.6) mg/dL Total Bilirubin (0.0-1.0) mg/dL AST (5-31) U/L ALT (0-31) U/L Alkaline Phosphatase (39-117) U/L Troponin I High Sens (<3.5-17.0) ng/L Total Protein (6.5-8.0) g/dL Albumin (3.5-5.0) g/dL TSH (0.32-4.0) uIU/mL Free T4 (0.71-1.85) ng/dL Beta HCG, Quant mIU/mL Urine Color Urine Appearance Urine pH (5.0-9.0) Ur Specific Echo (1.005-1.025) Urine Protein (Neg-Trace) mg/dL Urine Glucose (UA) (Negative) mg/dL Urine Ketones (Negative) mg/dL Urine Blood (Negative) Urine Nitrite (Negative) Ur Leukocyte Esterase (Negative) Urine RBC (0-2) /HPF Urine WBC (0-5) /HPF Ur Squamous Epith Cells (0-2) /HPF Urine Bacteria (None Seen) Hyaline Casts (0-2) /LPF COVID-19 (RAFAEL) (Negative) COVID-19 Clin Com Influenza Type A (HUA) (Negative) Influenza Type B (HUA) (Negative) Influenza A & B Note External Record Review External record reviewed: Outpatient record, Prior outpatient labs and Prior outpatient radiology Chronic Conditions Patient?s care impacted by: Other Thyroid dysfunction Critical Care Time Critical Care Time Critical Care Time: Yes Total Critical Care Time: 45 Attestation: I personally attest to this time spent taking care of the patient. Discharge Plan Discharge Clinical Impression: Pyelonephritis, Medication side effects Patient Disposition: Home, Self-Care Instructions: Kidney Infection (ED) Additional Instructions: 1. Reanudar los medicamentos caseros seg?n lo recetado. 2. Complete todo el tratamiento con antibi?ticos seg?n lo prescrito. 3. Le recomiendo que contin?e tomando el medicamento para controlar las n?useas. 4. Llame al consultorio de kern m?dico de atenci?n primaria a primera hora de la ma?nathan, independientemente de si mullins estado nevando, para programar annelise faith para annelise reevaluaci?n y un mayor tratamiento ambulatorio. Regrese a la divina de emergencias si los s?ntomas empeoran. 1. Resume home medications as prescribed. 2. Please complete the entire course of antibiotics as prescribed. 3. I do recommend that you continue to take the medication for nausea control. 4. Please call the office of your primary care doctor 1st thing in the morning regardless of whether not it has been snowing to set up an appointment for re-evaluation and further outpatient management. Return to the ER for any worsening symptoms. Prescriptions: New cefdinir 300 mg capsule 300 mg PO BID 7 Days Qty: 14 0RF No Action (DME) Blood Pressure Cuff Misc See Rx Instructions .ROUTE .MEDSUPPLY Qty: 1 0RF Rx Instructions: As directed sumatriptan succinate 50 mg tablet 50 mg PO Q2-4H PRN (Reason: migraine headache) Qty: 10 1RF Rx Instructions: do not exceed 4 doses per 24 hrs amlodipine 5 mg tablet 5 mg PO DAILY 30 Days Qty: 30 3RF Hold Instructions: Doctor's Order ferrous sulfate 325 mg (65 mg iron) tablet 325 mg PO DAILY 90 Days Qty: 90 1RF losartan 50 mg tablet 50 mg PO DAILY Qty: 30 3RF chlorthalidone 25 mg tablet 25 mg PO DAILY Qty: 30 0RF Hold Instructions: Doctor's Order ondansetron 4 mg tablet,disintegrating 4 mg PO Q6-8H PRN (Reason: nausea and vomiting) Qty: 10 0RF hydroxyzine HCl 50 mg tablet 50 mg PO BID PRN (Reason: anxiety) Qty: 14 0RF pantoprazole [Protonix] 40 mg tablet,delayed release (DR/EC) 40 mg PO DAILY Qty: 20 0RF polyethylene glycol 3350 [Miralax] 17 gram/dose powder 17 g PO BID Qty: 238 0RF omeprazole magnesium [Prilosec OTC] 20 mg tablet,delayed release (DR/EC) 20 mg PO BID Qty: 30 0RF sucralfate 100 mg/mL suspension 10 ml PO QID hydralazine 10 mg tablet 10 mg PO BID 30 Days Qty: 60 2RF sertraline 25 mg tablet 25 mg PO DAILY 30 Days Qty: 30 2RF Referrals: Jeffy Gutierrez MD [Primary Care Provider] - Print Language: Grenadian
[2023-10-23 16:43] LABS: MANUAL DIFF FLAG NO
[2023-10-23 16:45] LABS: Basophils Absolute Auto 0.1 X10*3/uL (0.0-0.2); Basophils Percent Auto 0.6 % (0-2); Eosinophils Absolute Auto 0.1 X10*3/uL (0.0-0.4); Hematocrit 35.6 % (37.0-47.0); Imm Gran Abs Auto 0.02 X10*3/uL (0.00-0.03); Imm Gran Pct Auto 0.2 % (0.0-0.4); Lymphocytes Absolute Auto 1.6 X10*3/uL (1.2-4.9); Lymphocytes Percent Auto 17.9 % (20-40); Mean Corpuscular HGB Conc 30.9 g/dl (31.0-35.0); Mean Corpuscular Volume 71.1 fL (80.0-98.0); Mean Platelet Volume 10.9 fL (9.4-12.3); Monocytes Absolute Auto 0.7 X10*3/uL (0.1-1.2); Monocytes Percent Auto 7.5 % (2-11); Neutrophils Absolute Auto 6.6 x10*3/uL (2.0-8.3); Neutrophils Percent Auto 72.8 % (45-73); Platelet Count 298 X10*3/uL (160-400); Red Blood Count 5.01 X10*6/uL (4.20-5.50); Red Cell Distribution Width 14.8 % (11.0-16.0); White Blood Count 9.1 X10*3/uL (4.8-10.8)
[2023-10-23 16:50] LABS: INTERNATIONAL NORM RATIO 1.1 (0.9-1.1); Prothrombin Time 13.5 SEC (11.1-13.3)
[2023-10-23 16:53] LABS: Partial Thromboplastin Time 30.9 SEC (26.0-36.8)
[2023-10-23 17:07] LABS: Alanine Aminotransferase 20 U/L (0-31); Albumin Level 4.6 g/dL (3.5-5.0); Alkaline Phosphatase 70 U/L (39-117); Anion Gap 12 (12-20); Aspartate Amino Transferase 27 U/L (5-31); Bilirubin Total 0.3 mg/dL (0.0-1.0); Blood Urea Nitrogen 12 mg/dL (9-16); Carbon Dioxide 25 mmol/L (22-29); Chloride 107 mmol/L (96-108); Creatinine Clr Calc Pharmacy 102.9; Estimated Glomerular Filt Rate > 60; Glucose Random 93 mg/dL (60-115); HCG Quantitative < 2 mIU/mL; Magnesium 2.3 mg/dL (1.6-2.6); Potassium 4.4 mmol/L (3.3-5.1); Sodium 140 mmol/L (135-145); Total Protein 8.3 g/dL (6.5-8.0); Troponin-I High Sensitivity < 2.7 ng/L (<3.5-17.0)
[2023-10-23 17:10] LABS: COVID-19 Test Negative (Negative); IDNOW Serial# 08D9AD1C; IDNOW Serial# 152EDE1D; Influenza A Negative (Negative); Influenza B2 Negative (Negative)
[2023-10-23 17:20] LABS: TSH reflex Free T4 < 0.01 uIU/mL (0.32-4.0)
[2023-10-23 18:33] LABS: Free T4 (Free Thyroxine) 2.17 ng/dL (0.71-1.85)
[2023-10-23 19:10] LABS: Appearance Urine Turbid; Color Urine Dark Yellow; Glucose Urine UA Negative (Negative); Leukocyte Esterase Urine Large (3+) (Negative); Nitrite Urine Positive (Negative); PH 6.5 (5.0-9.0); UMIC TRIGGER UACC YES; Urine Blood Moderate (2+) (Negative); Urine Ketones 15 mg/dL (Negative); Urine Protein 30 (1+) mg/dL (Neg-Trace)
[2023-10-23 19:50] LABS: Bacteria Urine 3+ (None Seen); RBC Urine >20 /HPF (0-2); UACC Culture Trigger YES; WBC Urine >50 /HPF (0-5)
[2023-10-23 21:05] VITALS: BP 158/79; PULSE 77; RESP 16; TEMP 36.6; O2SAT 99
[2023-10-23 21:14] LABS: Glucose, Whole Blood 73 mg/dL (60-115)
[2023-10-24] MEDS: cefTRIAXone sodium 1 GM in 0.9 % Sodium Chloride 50 ML IV (01:36)
[2023-10-24] MEDS: Acetaminophen 325 MG TABLET 975 MG PO (01:37)
[2023-10-24] MEDS: Ibuprofen 400 MG TABLET PO (01:37)
[2023-10-24] MEDS: diphenhydrAMINE HCL 50 MG/ML VIAL 25 MG IVPUSH (02:32)
[2023-10-24 02:37] VITALS: RESP 16
== END 2023-10-24 02:39 | disposition home or self-care (01) ==
PROVIDERS: Physician Assistant Medical; Emergency Provider Student in an Organized Health Care Education/Training Program; PCP Internal Medicine
DX: N12 Tubulo-interstitial nephritis, not specified as acute or chronic (principal); R10.30 Lower abdominal pain, unspecified; N39.0 Urinary tract infection, site not specified; R42 Dizziness and giddiness; Z79.899 Other long term (current) drug therapy; Z11.52 Encounter for screening for COVID-19
CPT/HCPCS: 36415; 80053; 81001; 82947; 83735; 84439; 84443; 84484; 84702; 85025; 85610; 85730; 87086; 87147; 87502; 87635; 96365; 96375; 99284; J0696; J1200

== ENCOUNTER 2023-10-24 10:56 | Outpatient (REF) | payer OTHER, SELFPAY ==
[2023-10-24 11:01] LABS: Appearance Urine Cloudy; Color Urine Dark Yellow; Glucose Urine UA Negative (Negative); Leukocyte Esterase Urine Large (3+) (Negative); Nitrite Urine Positive (Negative); Specific Gravity - Urine >= 1.030 (1.005-1.025); UMIC TRIGGER UACC YES; Urine Blood Small (1+) (Negative); Urine Ketones 40 mg/dL (Negative); Urine Protein Trace mg/dL (Neg-Trace)
[2023-10-24 11:08] LABS: Bacteria Urine Trace (None Seen); Hyaline Casts Urine 0-2 /LPF (0-2); UACC Culture Trigger YES; WBC Urine >50 /HPF (0-5)
== END 2023-10-24 10:57 | disposition home or self-care (01) ==
LOC: HO.LNP 10:56
PROVIDERS: Visit Provider Internal Medicine
DX: R30.0 Dysuria (principal)
CPT/HCPCS: 81001; 81003

== ENCOUNTER 2023-10-24 15:31 | Outpatient (AMB) | payer OTHER, SELFPAY ==
[2023-10-24 15:39] VITALS: BP 142/102; PULSE 100; O2SAT 98; BMI 28.2
--- NOTE | 2023-10-24 15:39 | A.OFFPC_ITS ---
Vital Signs 10/24/23 15:39 Height 5 ft Weight 144 lb 8 oz BMI 28.2 BP 142/102 H Blood Pressure Location Lt brachial Position Sitting Pulse 100 Pulse Source Pulse Oximeter Pulse Oximetry (%) 98 Oxygen Delivery Method Room Air Intake Visit Reasons: abdominal pain/ see ED notes/ GI referral Environmental Permitting Specialist Required: Yes Environmental Permitting Specialist Language: Omani Accompanied by: Spouse Allergies amoxicillin [AMOXICILLIN] Allergy (Unknown, Verified 10/24/23 16:23) UNKNOWN clavulanic acid [From Augmentin] Allergy (Unknown, Verified 10/24/23 16:23) Unknown cyclobenzaprine [From Flexeril] Allergy (Verified 10/24/23 16:23) Palpitations escitalopram Allergy (Verified 10/24/23 16:23) Palpitations hydralazine Allergy (Verified 10/24/23 16:23) Nausea and Vomiting lorazepam [From Ativan] Allergy (Verified 10/24/23 16:23) Palpitations Medication List - Last Reconciled 10/24/23 by Jeffy Gutierrez MD amlodipine 5 mg PO DAILY 30 days cefdinir 300 mg PO BID 7 days chlorthalidone 25 mg PO DAILY ferrous sulfate 325 mg PO DAILY 90 days hydroxyzine HCl 50 mg PO BID PRN losartan 50 mg PO DAILY miscellaneous medical supply (Blood Pressure Cuff) As directed omeprazole magnesium (Prilosec OTC) 20 mg PO BID ondansetron 4 mg PO Q6-8H PRN pantoprazole (Protonix) 40 mg PO DAILY polyethylene glycol 3350 (Miralax) 17 grams PO BID sertraline 25 mg PO DAILY 30 days sucralfate 10 mL PO QID sumatriptan succinate 50 mg PO Q2-4H PRN Tobacco use date assessed: 10/19/23 HPI abdominal pain/ see ED notes/ GI referral HPI Details Patient comes in today for HDF follow up visit States that she is feeling tired of feeling sick Has been [place] [facility] [place] [facility] multiple times over the past few weeks for numerous somatic and non-specific complaints, including dizziness, weakness, abdominal pain, nausea/vomiting, etc Has had numerous and extensive work ups done so far and all of her exams have come back normal except for an elevated free T4 level with a suppressed TSH consistent with hyperthyroidism Additional work ups, including a thyroid scan with PORRAS uptake have been ordered for further evaluation and are awaiting scheduling A referral has also been made out to endocrinology and this is also awaiting scheduling Patient relates that she's had frequent diarrhea lately and has noticed (+) blood in her stool at times - would like to get a referral to see GI for further evaluation She has been advised that a referral to GI was already made out for her last week and this is waiting for them to get her scheduled Patient now reports that she was taking some Rx for her thyroid in the past but she could not provide the name of her Rx States that she stopped taking it sometime last year (thinks it was in February 2023) when she switched doctors and did not realize that stopping her Rx would have this much of an effect She reports feeling very fatigued and feels dehydrated States that she has symptoms of UTI but can barely tolerate the last Abx Rx (Cefdinir) that she was prescribed yesterday as she would experience some mild itching in her throat when she takes it; denies any dysphagia She denies any chest pains but feels SOB often Her states that he is getting very worried about his 's health and feels that she is spiraling downwards [facility] Medical History (Updated 10/24/23 @ 16:50 by Jeffy Gutierrez MD) Hyperthyroidism Essential hypertension Breast pain, left Overweight (BMI 25.0-29.9) Heavy menses Chronic constipation GERD without esophagitis Anemia HTN (hypertension) Anxiety Surgical History H/O tooth extraction (~12/10/22) H/O: Family History Paternal Aunt Breast cancer, Onset Age: 35 Maternal Aunt Breast cancer, Onset Age: 40 Other Diabetes High cholesterol Hypertension Social History Housing: House Alcohol intake: never Patient Tobacco Use Status: Never used Tobacco e-Cigarette/Vaping Use: Never Used service: No Current occupational status: unemployed Cognitive needs: No Hearing needs: No Vision needs: No Questionnaire PHQ-9 Over the last 2 weeks, how often have you been bothered by any of the following problems? Depression Screening Interpretation: Negative Depression Screening Done: Yes Source: Developed by Drs. Fabio Johnson, Trinity Anand, Neymar Peterson and colleagues, with an educational sherley from [employer]. Thrive Questionnaire Date Thrive assessed: 10/19/23 Currently or been in a relationship where the following occur: no concerns reported THRIVE Score: 0 YULIYA-7 AMB Questionnaire YULIYA-7 Date YULIYA - 7 assessed: 10/19/23 Source: Developed by Drs. Fabio Johnson, Trinity Anand, Neymar Peterson and colleagues, with an educational sherley from [employer]. Review of Systems Const Denies chills, Reports fatigue, Denies fever(s), Reports headache(s) (recurrent - sees spots ) and Reports weakness Eyes Denies blurry vision and Reports spots in vision (during bouts of headaches) ENT Denies dysphagia, Reports dizziness (on and off), Denies otalgia, Reports headache(s) (recurrent - sees spots ), Denies neck pain, Denies odynophagia and Denies sore throat Card Denies chest pain, Reports palpitations (describes feeling as on and off palpitations) and Denies dyspnea Resp Denies cough and Denies dyspnea GI Reports abdominal pain (on and off, over the epigastric area), Reports hematochezia (at times), Reports constipation (increased; chronic), Denies dysphagia, Reports heartburn (recurrent), Reports diarrhea, Reports loose stools, Reports nausea (on and off, mostly with headaches), Denies odynophagia and Denies vomiting Reports abnormal menses (has periods twice a month often), Denies difficulty voiding, Reports nocturia, Reports menorrhagia and Reports dysuria Musc Denies arthralgias and Denies neck pain Skin/Breast Denies rash Neuro Reports dizziness (on and off), Reports headache(s) (recurrent - sees spots ), Reports seizure-like activity (see HPI) and Reports weakness Endo Reports fatigue and Reports palpitations (describes feeling as on and off palpitations) Physical exam (Primary Care) Vital Signs: Last Vital Signs Pulse 100 10/24/23 15:39 BP 142/102 H 10/24/23 15:39 Pulse Ox 98 10/24/23 15:39 Oxygen Delivery Method Room Air 10/24/23 15:39 BMI result Body Mass Index 28.2 Tobacco/Smoking Status: Tobacco use Status Tobacco use date assessed 10/19/23 10/24/23 15:40 Patient Tobacco Use Status Never used Tobacco 10/24/23 15:40 e-Cigarette/Vaping Use Never Used 10/24/23 15:40 Depression Screening Interpretation: Negative Thrive Assessment: Date of Thrive Assessment Date Thrive assessed 10/19/23 10/24/23 15:40 Currently or been in a relationship where the following occur: no concerns reported Const General: no acute distress and alert HENMT Throat: Yes posterior oropharynx normal and Yes tonsils normal (no TP congestion) Neck Neck: Yes no lymphadenopathy and Yes supple Thyroid: diffusely enlarged and tender (slightly) Resp Auscultation: clear to auscultation bilaterally, no rales and no wheezes Cardio Rate: tachycardic Rhythm: regular rhythm Heart sounds: no murmurs GI Palpation (GI): Soft to palpation and nontender Back/Spine/Pelvis Thoracic/Lumbar Spine: thoracic and lumbar spine normal to inspection Skin Rashes: no rashes Extrem General: Yes no clubbing, cyanosis or edema Assessment and Plan Assessment & Plan (1) Hyperthyroidism: Code(s): E05.90 - Thyrotoxicosis, unspecified without thyrotoxic crisis or storm Plan: Patient and her are advised that since we ran a test on her thyroid and her TFTs came back consistent with a hyperthyroid state, this actually helps explain majority of the symptoms that she has been experiencing or complaining about for the past few weeks A thyroid scan with PORRAS uptake and endocrinology referral have already been placed/ordered and are both awaiting approval and scheduling We have tried reaching out to patient's pharmacy and found out from them that she was on Methimazole 10 mg 1.5 tablets (15 mg) QD in the past but she stopped refilling it sometime in the middle of last year Will at least start her back on this for now while waiting for her other tests and appointments to be scheduled We have also found out that patient apparently still has appointments scheduled to see her previous PCP in few weeks so she will need to decide if she wants to stay with her previous PCP or switch over to us - advised that I do not believe her insurance will allow her to keep both (2) UTI (urinary tract infection): Code(s): N39.0 - Urinary tract infection, site not specified Qualifiers: Urinary tract infection type: urethritis Qualified Code(s): N34.2 - Other urethritis Plan: Encouraged to increase her oral fluid intake as tolerate Continue Cefdinir 300 mg BID Plan Follow up as scheduled next month Medications: New methimazole 15 mg (1.5 x 10 mg) PO DAILY 30 days 45 tabs 1RF Coding Level of Care Code Est Pt Level 4 (48167) Diagnoses Hyperthyroidism E05.90 Infective urethritis N34.2 Urinary tract infection type: urethritis
== END 2023-10-24 17:05 | disposition home or self-care (01) ==
PROVIDERS: PCP Internal Medicine; Visit Provider Internal Medicine
DX: E05.90 Thyrotoxicosis, unspecified without thyrotoxic crisis or storm (principal); N34.2 Other urethritis
CPT/HCPCS: 99214

== ENCOUNTER 2023-11-08 09:42 | Outpatient (REF) | payer OTHER, SELFPAY ==
[2023-11-08 10:38] LABS: Appearance Urine Cloudy; Color Urine Yellow; Glucose Urine UA Negative (Negative); Leukocyte Esterase Urine Large (3+) (Negative); Nitrite Urine Negative (Negative); PH 6.5 (5.0-9.0); Specific Gravity - Urine <= 1.005 (1.005-1.025); UMIC TRIGGER UACC YES; Urine Blood Negative (Negative); Urine Ketones Negative (Negative); Urine Protein Negative (Neg-Trace)
[2023-11-08 10:47] LABS: Bacteria Urine Trace (None Seen); Hyaline Casts Urine 0-2 /LPF (0-2); RBC Urine 0-2 /HPF (0-2); UACC Culture Trigger YES; WBC Urine >50 /HPF (0-5)
== END 2023-11-08 09:43 | disposition home or self-care (01) ==
LOC: HO.MAMMO 09:42
PROVIDERS: Absent Provider Internal Medicine; PCP Internal Medicine; Visit Provider Obstetrics & Gynecology
DX: R30.0 Dysuria (principal)
CPT/HCPCS: 81001; 87086

== ENCOUNTER 2023-11-13 09:44 | Outpatient (AMB) | payer OTHER, SELFPAY ==
[2023-11-13 09:45] VITALS: BP 112/70; PULSE 79; O2SAT 98; BMI 27.3
--- NOTE | 2023-11-13 09:45 | MHC.PC.OV ---
Vital Signs 11/13/23 09:45 Height 5 ft Weight 140 lb BMI 27.3 BP 112/70 Blood Pressure Location Lt brachial Position Sitting Pulse 79 Pulse Source Pulse Oximeter Pulse Oximetry (%) 98 Oxygen Delivery Method Room Air Intake [place] [facility] [place] Intake Note: Patient is here to follow-up after a visit [place] [facility] [place] Poker Manager Required: Yes Poker Manager Language: Citizen Of [place] Allergies clavulanic acid [From Augmentin] Allergy (Unknown, Verified 11/13/23 09:55) Unknown cyclobenzaprine [From Flexeril] Allergy (Verified 11/13/23 09:55) Palpitations escitalopram Allergy (Verified 11/13/23 09:55) Palpitations hydralazine Allergy (Verified 11/13/23 09:55) Nausea and Vomiting lorazepam [From Ativan] Allergy (Verified 11/13/23 09:55) Palpitations Medication List - Last Reconciled 11/13/23 by Jeffy Gutierrez MD amlodipine 10 mg PO DAILY famotidine 40 mg PO BID ferrous sulfate 325 mg PO DAILY 90 days glucagon HCl (Glucagon (HCl) Emergency Kit) 1 mg subcut Q20M PRN hydroxyzine HCl 25 mg PO TID PRN losartan 50 mg PO DAILY miscellaneous medical supply (Blood Pressure Cuff) As directed ondansetron 4 mg PO Q6-8H PRN pantoprazole 40 mg PO DAILY propranolol 10 mg PO BID propylthiouracil 100 mg PO TID sertraline 25 mg PO DAILY 30 days sucralfate 10 mL PO QID 30 days Tobacco use date assessed: 10/19/23 [place] [facility] [place] HPI Details Patient comes in today for her HDF follow up visit She was admitted to [facility] for about a week from 10/27/2023 to 11/03/2023 for multiple issues but primarily for hyperthyroidism/Grave's thyrotoxicosis, seizures (likely psychogenic) and a recently discovered pituitary microadenoma Since then, she has been started back on Amlodipine 10 mg QD and continued on Losartan 50 mg QD for her blood pressure She was switched out from her Methimazole to PTU at 100 mg TID and started as well on Propranolol 10 mg BID for her hyperthyroidism She continues on Pantoprazole 40 mg QD, Famotidine 40 mg BID and Carafate 1 gm QID for her gastritis She has been seen by [facility] GI and thinks she is scheduled for EGD and colonoscopy sometime in January 2024 She also reportedly had a video EEG done at [facility] for her seizures and per her hospital record, her video EEG came out normal during one of her seizure-like episodes She was recommended to get an outpatient brain MRI with dedicated pituitary protocol to further evaluate her pituitary mass and is also advised to recheck her TFTs in 4 weeks for follow up of her thyroid States that [facility] for her eye evaluation but 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 at the 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0-29.9) Heavy menses Chronic constipation GERD without esophagitis Anemia HTN (hypertension) Anxiety Surgical History H/O tooth extraction (~12/10/22) H/O: Family History Paternal Aunt Breast cancer, Onset Age: 35 Maternal Aunt Breast cancer, Onset Age: 40 Other Diabetes High cholesterol Hypertension Social History Housing: House Alcohol intake: never Patient Tobacco Use Status: Never used Tobacco e-Cigarette/Vaping Use: Never Used service: No Current occupational status: unemployed Cognitive needs: No Hearing needs: No Vision needs: No Questionnaire PHQ-9 Over the last 2 weeks, how often have you been bothered by any of the following problems? Depression Screening Interpretation: Negative Depression Screening Done: Yes Source: Developed by Drs. Fabio Johnson, TrinityNeymar Garner and colleagues, with an educational sherley from [employer]. Thrive Questionnaire Date Thrive assessed: 10/19/23 Currently or been in a relationship where the following occur: no concerns reported THRIVE Score: 0 YULIYA-7 AMB Questionnaire YULIYA-7 Date YULIYA - 7 assessed: 10/19/23 Source: Developed by Drs. Fabio Johnson, Neymar Gerber and colleagues, with an educational sherley from [employer]. Review of Systems Const Denies chills, Reports fatigue, Denies fever(s), Reports headache(s) (recurrent - sees spots at times) and Reports weakness Eyes Reports blurry vision and Reports spots in vision (during bouts of headaches) ENT Denies dysphagia, Reports dizziness (on and off), Denies otalgia, Reports headache(s) (recurrent - sees spots at times), Denies neck pain, Denies odynophagia and Denies sore throat Card Denies chest pain, Reports palpitations (describes feeling as on and off palpitations at times) and Denies dyspnea Resp Denies chest congestion, Denies cough and Denies dyspnea GI Reports abdominal pain (on and off, over the epigastric area), Reports hematochezia (at times), Reports constipation (increased; chronic), Denies dysphagia, Reports heartburn (recurrent), Reports diarrhea, Reports loose stools, Reports nausea (on and off, mostly with headaches), Denies odynophagia and Denies vomiting Reports abnormal menses (has periods twice a month often), Denies difficulty voiding, Denies nocturia, Reports menorrhagia and Denies dysuria (but (+) mild burning sensation at times lately) Musc Denies arthralgias and Denies neck pain Skin/Breast Denies rash Neuro Reports dizziness (on and off), Reports headache(s) (recurrent - sees spots at times), Reports seizure-like activity (see HPI) and Reports weakness Endo Reports fatigue and Reports palpitations (describes feeling as on and off palpitations at times) Physical exam (Primary Care) Vital Signs: Last Vital Signs Pulse 79 11/13/23 09:45 BP 112/70 11/13/23 09:45 Pulse Ox 98 11/13/23 09:45 Oxygen Delivery Method Room Air 11/13/23 09:45 BMI result Body Mass Index 27.3 Tobacco/Smoking Status: Tobacco use Status Tobacco use date assessed 10/19/23 10/24/23 15:40 Patient Tobacco Use Status Never used Tobacco 10/24/23 15:40 e-Cigarette/Vaping Use Never Used 10/24/23 15:40 Depression Screening Interpretation: Negative Thrive Assessment: Date of Thrive Assessment Date Thrive assessed 10/19/23 10/24/23 15:40 Currently or been in a relationship where the following occur: no concerns reported Const General: no acute distress and alert HENMT Throat: Yes posterior oropharynx normal and Yes tonsils normal (no TP congestion) Neck Neck: Yes no lymphadenopathy and Yes supple Thyroid: diffusely enlarged and tender (slightly) Resp Auscultation: clear to auscultation bilaterally, no rales and no wheezes Cardio Rate: tachycardic Rhythm: regular rhythm Heart sounds: no murmurs GI Palpation (GI): Soft to palpation and nontender Back/Spine/Pelvis Thoracic/Lumbar Spine: thoracic and lumbar spine normal to inspection Skin Rashes: no rashes Extrem General: Yes no clubbing, cyanosis or edema Assessment and Plan Assessment & Plan (1) Hyperthyroidism: Code(s): E05.90 - Thyrotoxicosis, unspecified without thyrotoxic crisis or storm Plan: Patient was on Methimazole 10 mg 1.5 tablets (15 mg) QD in the past but she stopped refilling it sometime last year when she was supposedly in-between switching PCPs She was started back on Methimazole about 3 weeks ago but this was switched over to PTU 100 mg TID (Methimazole was discontinued) by endocrinology at [facility]; she was also started on Propranolol 10 mg BID to help with her symptoms A thyroid scan with PORRAS uptake was placed/ordered for patient last month and she is scheduled for this on 12/21/2023 but as she is now already seeing endocrinology, will defer these and other necessary tests and procedures to endocrinology If they prefer, we can have her get these done at [place] where her current endocrinologists' are affiliated with or have her get her thyroid scan as scheduled here next month and forward a copy of her results to her endocrinologists [facility] Patient is also reminded to get her TFTs rechecked in about 3 weeks for follow up (2) Pituitary microadenoma: Code(s): D35.2 - Benign neoplasm of pituitary gland Plan: This was incidentally seen (potentially) on her recent brain MRI done in September 2023 and neurology was consulted regarding this Neurology recommended patient follow up with endocrinology on this and also a brain MRI with dedicated pituitary views on an outpatient basis for further evaluation Patient states that she has not had this ordered or scheduled yet as she believes that she was advised that this needs to be ordered through her PCP - Brain MRI ordered (3) 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 - Conversion disorder with seizures or convulsions Plan: Patient had an EEG done at the ER at [facility] back on 10/18/2023 that came out completely normal She was also reportedly noticed by the ER doctor attending to her last month (October 2023) that while she was foaming at the mouth, patient was awake and was talking to them and answering questions appropriately; does not appear to have any postictal phase; similar presentation was noted during her seizure episode(s) at [facility] on 10/29/2023 Neurology was consulted and concurred with our previous suspicion that patient most likely has pseudoseizures or psychogenic seizures related to her anxiety and did not recommend any Rx for her seizures at this time Evaluations done recently at [facility] also included a video EEG which reportedly came out negative as her seizure-like activity during video EEG did not show seizures (4) Essential hypertension: Code(s): I10 - Essential (primary) hypertension Plan: Reinforced low sodium diet - goal is systolic BP of at least 120 mm or less She is supposed to be on Losartan 50 mg QD, Amlodipine 5 mg QD and Chlorthalidone 25 mg QD but patient self-discontinued her Amlodipine and Chlorthalidone a couple of months ago as she felt that both meds were causing her to experience tachycardia (heart-racing) symptoms She was started additionally on Hydralazine 25 mg TID but ended up with drooling/foaming at the mouth and seizure-like symptoms after supposedly taking the Rx She was started back on Amlodipine 10 mg QD while she was admitted at [facility] a couple of weeks ago and now appears to be tolerating her current Rx - is now on Losartan 50 mg QD and Amlodipine 10 mg QD for her blood pressure, which appears better controlled at present She is also now on Propranolol 10 mg BID but this was started more to help control her thyroid symptoms rather than for her blood pressure (5) GERD without esophagitis: Code(s): K21.9 - Gastro-esophageal reflux disease without esophagitis Plan: Reinforced dietary restrictions She is advised again that she likely has gastritis (related to her GERD) She was sent again for an upper GI series for further evaluation last month (this was previously ordered twice separately since last year but she has not yet gotten this done) - is now scheduled for this next month on 12/14/2023 but she states that she is also apparently scheduled for EGD and colonoscopy by [facility] GI sometime next month She is currently on Famotidine 40 mg BID, Pantoprazole 40 mg QD and Carafate 1 gm QID Follow up with GI as scheduled (6) Chronic constipation: Code(s): K59.09 - Other constipation Plan: States that she's had problems with constipation all her life Encouraged again on increased oral fluids and dietary fiber Continue Miralax 17 gm QD; patient was also taking Mineral oil [place] daily PRN for increased constipation Advised that her iron tablets, which she takes for her anemia, is also contributing to her constipation She has been referred to GI for further management of her chronic constipation (7) Menometrorrhagia: Code(s): N92.1 - Excessive and frequent menstruation with irregular cycle Plan: States that she's had heavy menstrual bleeding and sometimes has 2 periods a month ever since she had her menstrual period at age 8 Pelvic US done last year in January 2023 came out normal/negative Follow up with [facility] as scheduled (8) Anemia: Code(s): D64.9 - Anemia, unspecified Qualifiers: Anemia type: unspecified type Qualified Code(s): D64.9 - Anemia, unspecified Plan: Is most likely due to a combination of iron deficiency and blood loss from her heavy periods Continue Ferrous Sulfate 325 mg QD (9) Anxiety: Code(s): F41.9 - Anxiety disorder, unspecified Plan: Continue Sertraline 25 mg Q AM and Hydroxyzine 25 mg TID PRN Follow up with psychiatry as scheduled (10) Overweight (BMI 25.0-29.9): Code(s): E66.3 - Overweight Plan: Reinforced diet/exercise as tolerated/lose weight Plan Follow up as scheduled in 2 months Orders: Orders MR head/brain wo/w con Today D35.2 - Benign neoplasm of pituitary gland, F44.5 - Conversion disorder with seizures or convulsions Coding Level of Care Code Est Pt Level 4 (74011) Diagnoses Hyperthyroidism E05.90 Pituitary microadenoma D35.2 Psychogenic nonepileptic seizure F44.5 Essential hypertension I10 GERD without esophagitis K21.9 Chronic constipation K59.09 Menometrorrhagia N92.1 Anemia, unspecified type D64.9 Anemia type: unspecified type Anxiety F41.9 Overweight (BMI 25.0-29.9) E66.3
== END 2023-11-13 10:29 | disposition home or self-care (01) ==
PROVIDERS: PCP Internal Medicine; Visit Provider Internal Medicine
DX: E05.90 Thyrotoxicosis, unspecified without thyrotoxic crisis or storm (principal); D35.2 Benign neoplasm of pituitary gland; F44.5 Conversion disorder with seizures or convulsions; I10 Essential (primary) hypertension; K21.9 Gastro-esophageal reflux disease without esophagitis; K59.09 Other constipation; N92.1 Excessive and frequent menstruation with irregular cycle; D64.9 Anemia, unspecified; F41.9 Anxiety disorder, unspecified; E66.3 Overweight
CPT/HCPCS: 99214

== ENCOUNTER 2023-11-27 09:49 | Outpatient (REF) | payer OTHER, SELFPAY ==
[2023-11-27 11:39] LABS: Thyroid Stimulating Hormone < 0.01 uIU/mL (0.32-4.0)
== END 2023-11-27 09:50 | disposition home or self-care (01) ==
LOC: HO.LAB 09:49
PROVIDERS: PCP Internal Medicine; Visit Provider Hospitalist
DX: E05.00 Thyrotoxicosis with diffuse goiter without thyrotoxic crisis or storm (principal)
CPT/HCPCS: 36415; 84443

== ENCOUNTER 2023-12-14 08:17 | Outpatient (REF) | payer OTHER, SELFPAY ==
--- NOTE | ~2023-12-14 | FL_ITS ---
EXAMINATION: XR FLUOROSCOPY UPPER GI WITH AIR CLINICAL INFORMATION: Reflux COMPARISON: None TECHNIQUE: Fluoroscopic air contrast upper GI examination was performed utilizing standard techniques with thin and thick barium and effervescent granules. Numerous spot images were obtained. FINDINGS: Dual and single contrast images of the esophagus demonstrate normal caliber, contour, and mucosal pattern. No evidence of stricture, mass, or ulcerations identified. Esophageal peristalsis was normal. No evidence of hiatus hernia identified. No significant gastroesophageal reflux was seen during the course of the examination and on reflux views. Dual contrast and single contrast images of the stomach demonstrated a normal contour. The gastric rugal folds appear thickened. There are multiple small foci of contrast pooling in the fundus and body the stomach that may represent small superficial aphthous ulcers. No masses are present. Contrast freely passed into the gastric antrum and duodenal bulb without delay. Single and air-contrast images of the duodenal bulb demonstrate no abnormality. The duodenal sweep has a normal course. No malrotation. Duodenal folds appear slightly thickened, suggesting duodenitis. The imaged proximal jejunum has demonstrates mildly thickened folds, suggesting a proximal enteritis. FLUOROSCOPY TIME: 2 minutes 53 seconds Number of Spot Images: 9 Number of Cine: 10 DOSE AREA PRODUCT: 1701 uGy-m2 (microgray-meter squared) FL/FL upper GI series IMPRESSION: 1. Thickened appearance of the gastric rugal folds. In addition there are multiple small foci of contrast pooling in the fundus and body the stomach. These findings are suggestive of erosive gastritis. 2. Mildly thickened duodenal and jejunal folds as detailed, findings suggestive of proximal enteritis. Differential for this finding is extensive. This procedure was performed by Lowell Solano PA-C, and supervised by Dr. Lucio
== END 2023-12-14 08:18 | disposition home or self-care (01) ==
LOC: HO.XRAY 08:17
PROVIDERS: PCP Internal Medicine; Visit Provider Internal Medicine
DX: R12 Heartburn (principal); K21.9 Gastro-esophageal reflux disease without esophagitis
CPT/HCPCS: 74240

== ENCOUNTER → 2023-12-14 08:17 | Outpatient (BNV) | payer OTHER, SELFPAY | PROVIDERS: PCP Internal Medicine; Visit Provider Physician Assistant Surgical | DX: K21.9 Gastro-esophageal reflux disease without esophagitis (principal) | CPT/HCPCS: 74246 ==

== ENCOUNTER 2024-01-15 16:41 | Outpatient (REF) | payer OTHER, SELFPAY ==
[2024-01-15 17:00] LABS: MANUAL DIFF FLAG NO
[2024-01-15 17:44] LABS: Basophils Absolute Auto 0.1 X10*3/uL (0.0-0.2); Basophils Percent Auto 0.7 % (0-2); Eosinophils Absolute Auto 0.2 X10*3/uL (0.0-0.4); Hematocrit 37.3 % (37.0-47.0); Hemoglobin 11.8 g/dl (12.0-16.0); Imm Gran Abs Auto 0.08 X10*3/uL (0.00-0.03); Imm Gran Pct Auto 0.7 % (0.0-0.4); Lymphocytes Absolute Auto 2.8 X10*3/uL (1.2-4.9); Lymphocytes Percent Auto 25.7 % (20-40); Mean Corpuscular HGB Conc 31.6 g/dl (31.0-35.0); Mean Corpuscular Hemoglobin 23.4 pg (27.0-33.0); Mean Platelet Volume 10.5 fL (9.4-12.3); Monocytes Absolute Auto 0.8 X10*3/uL (0.1-1.2); Monocytes Percent Auto 7.3 % (2-11); Neutrophils Percent Auto 63.6 % (45-73); Platelet Count 319 X10*3/uL (160-400); Red Blood Count 5.04 X10*6/uL (4.20-5.50); Red Cell Distribution Width 18.9 % (11.0-16.0)
[2024-01-15 18:23] LABS: Appearance Urine Cloudy; Color Urine Yellow; Glucose Urine UA Negative (Negative); Leukocyte Esterase Urine Moderate (2+) (Negative); Nitrite Urine Negative (Negative); UMIC TRIGGER UACC YES; Urine Blood Negative (Negative); Urine Ketones Trace mg/dL (Negative); Urine Protein Negative (Neg-Trace)
[2024-01-15 18:28] LABS: Bacteria Urine 1+ (None Seen); Hyaline Casts Urine 0-2 /LPF (0-2); RBC Urine 0-2 /HPF (0-2); UACC Culture Trigger YES
[2024-01-15 19:16] LABS: Alanine Aminotransferase 28 U/L (0-31); Albumin Level 4.7 g/dL (3.5-5.0); Alkaline Phosphatase 74 U/L (39-117); Anion Gap 16 (12-20); Aspartate Amino Transferase 25 U/L (5-31); Bilirubin Total 0.2 mg/dL (0.0-1.0); Blood Urea Nitrogen 13 mg/dL (9-16); Calcium 10.3 mg/dL (8.4-10.2); Carbon Dioxide 23 mmol/L (22-29); Chloride 104 mmol/L (96-108); Estimated Glomerular Filt Rate > 60; Glucose Random 89 mg/dL (60-115); Iron 52 mcg/dL (30-160); Percent Iron Saturation 13 % (15-50); Potassium 4.2 mmol/L (3.3-5.1); Sodium 139 mmol/L (135-145); Total Iron Binding Capacity 416 mcg/dL (228-428); Total Protein 8.6 g/dL (6.5-8.0); Unsaturated Iron Binding 364 ug/dL
[2024-01-15 19:32] LABS: Free T4 (Free Thyroxine) 0.49 ng/dL (0.71-1.85); HCG Quantitative 10158 mIU/mL; Thyroid Stimulating Hormone 16.97 uIU/mL (0.32-4.0)
[2024-01-16 05:17] LABS: Estimated Average Glucose 114 mg/dL; Hemoglobin A1c % 5.6 % (<6.0)
[2024-01-17 11:42] LABS: Triiodothyronine T3 Total 124 ng/dL (76-181)
== END 2024-01-15 16:42 | disposition home or self-care (01) ==
LOC: HO.LAB 16:41
PROVIDERS: PCP Internal Medicine; Visit Provider Internal Medicine
DX: E05.90 Thyrotoxicosis, unspecified without thyrotoxic crisis or storm (principal); R53.83 Other fatigue; D50.9 Iron deficiency anemia, unspecified; R73.01 Impaired fasting glucose; Z32.01 Encounter for pregnancy test, result positive
CPT/HCPCS: 36415; 80053; 81001; 83036; 83540; 84439; 84443; 84480; 84702; 85025; 87086; 87147

== ENCOUNTER 2024-01-29 08:07 | Emergency (ER) | payer OTHER, SELFPAY ==
[2024-01-29 08:18] VITALS: BP 135/78; PULSE 79; RESP 16; TEMP 36.9; O2SAT 99; BMI 31.4
[2024-01-29 09:24] LABS: Basophils Absolute Auto 0.1 X10*3/uL (0.0-0.2); Basophils Percent Auto 0.5 % (0-2); Eosinophils Absolute Auto 0.2 X10*3/uL (0.0-0.4); Eosinophils Percent Auto 1.8 % (0-4); Hemoglobin 12.1 g/dl (12.0-16.0); Imm Gran Abs Auto 0.03 X10*3/uL (0.00-0.03); Imm Gran Pct Auto 0.3 % (0.0-0.4); Lymphocytes Absolute Auto 1.8 X10*3/uL (1.2-4.9); MANUAL DIFF FLAG NO; Mean Corpuscular HGB Conc 31.8 g/dl (31.0-35.0); Mean Corpuscular Hemoglobin 24.3 pg (27.0-33.0); Mean Corpuscular Volume 76.5 fL (80.0-98.0); Mean Platelet Volume 10.2 fL (9.4-12.3); Monocytes Absolute Auto 0.8 X10*3/uL (0.1-1.2); Neutrophils Absolute Auto 6.6 x10*3/uL (2.0-8.3); Neutrophils Percent Auto 70.4 % (45-73); Platelet Count 234 X10*3/uL (160-400); Red Blood Count 4.97 X10*6/uL (4.20-5.50); Red Cell Distribution Width 19.5 % (11.0-16.0); White Blood Count 9.4 X10*3/uL (4.8-10.8)
[2024-01-29 09:34] LABS: Appearance Urine Clear; Color Urine Yellow; Glucose Urine UA Negative (Negative); Leukocyte Esterase Urine Moderate (2+) (Negative); Nitrite Urine Negative (Negative); PH 7.5 (5.0-9.0); UMIC TRIGGER UACC YES; Urine Blood Negative (Negative); Urine Ketones Negative (Negative); Urine Protein Negative (Neg-Trace)
[2024-01-29 09:39] LABS: Alanine Aminotransferase 21 U/L (0-31); Albumin Level 4.6 g/dL (3.5-5.0); Alkaline Phosphatase 71 U/L (39-117); Anion Gap 14 (12-20); Aspartate Amino Transferase 18 U/L (5-31); Bilirubin Total 0.3 mg/dL (0.0-1.0); Blood Urea Nitrogen 7 mg/dL (9-16); Calcium 10.1 mg/dL (8.4-10.2); Carbon Dioxide 24 mmol/L (22-29); Chloride 106 mmol/L (96-108); Creatinine Clr Calc Pharmacy 108.8; Estimated Glomerular Filt Rate > 60; Glucose Random 98 mg/dL (60-115); Lipase 27 U/L (8-78); Potassium 4.3 mmol/L (3.3-5.1); Sodium 140 mmol/L (135-145); Total Protein 8.3 g/dL (6.5-8.0)
[2024-01-29 09:42] LABS: Bacteria Urine None Seen (None Seen); Hyaline Casts Urine 0-2 /LPF (0-2); RBC Urine 0-2 /HPF (0-2); Squamous Epithelial Cell Urine 0-2 /HPF (0-2); WBC Urine 0-5 /HPF (0-5)
--- NOTE | 2024-01-29 13:30 | PC.NURSE ---
pt eloped from waiting room without RME after receiving lab work.
== END 2024-01-29 13:31 | disposition left against medical advice (07) ==
PROVIDERS: Emergency Provider Emergency Medicine; PCP Internal Medicine
DX: O26.891 Other specified pregnancy related conditions, first trimester (principal); R11.10 Vomiting, unspecified; K59.00 Constipation, unspecified; R20.0 Anesthesia of skin; Z3A.01 Less than 8 weeks gestation of pregnancy; I10 Essential (primary) hypertension; Z53.21 Procedure and treatment not carried out due to patient leaving prior to being seen by health care provider
CPT/HCPCS: 36415; 80053; 81001; 83690; 84702; 85025; 87086; 87088; 99282; 99283

== ENCOUNTER 2024-01-31 15:01 | Outpatient (AMB) | payer OTHER, SELFPAY ==
--- NOTE | 2024-01-31 15:17 | MHC.OFFVIS ---
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 Is been a whole year with very bad headaches. I get them almost every day. I feel like water is running through my head. Always feeling my head and face very hot. I would need to use a cold cloth with ice or be in front of fan to feel cool. Having difficulty staying asleep. Day and night always feeling dizzy and feel the rooms spinning. [facility] [employer]er Name: Shantell Jj Allergies morphine Allergy (Severe, Verified 01/31/24 15:32) Vomiting amoxicillin Allergy (Mild, Verified 01/31/24 15:32) Rash clavulanic acid [From Augmentin] Allergy (Unknown, Verified 01/31/24 15:30) Unknown cyclobenzaprine [From Flexeril] Allergy (Verified 01/31/24 15:30) Palpitations escitalopram Allergy (Verified 01/31/24 15:30) Palpitations hydralazine Allergy (Verified 01/31/24 15:30) Nausea and Vomiting lorazepam [From Ativan] Allergy (Verified 01/31/24 15:30) Palpitations Medication List - Last Reconciled 01/31/24 by LIZZY Mcgill amlodipine 10 mg PO DAILY 90 days miscellaneous medical supply (Blood Pressure Cuff) As directed propranolol 10 mg PO BID 90 days HPI Comments Details: 28-yr-old female presents for new pt evaluation of headache and convulsions. Pt reprots she is currently 6 weeks . Pt reports she started having convulsive episodes about a year ago, and headaches a few months ago. PMH and ROS are significant for: Musculoskeletal disorders or injury: Neck pain Cramps: leg cramps Sleep d/o: sleep difficulties CV disease: anemia, heart murmur, HTN Endocrine or metabolic d/o: Thyroid d/o, Gestational diabetes : frequent urination GI d/o: Abd pain, N/V, Constipation, GERD, throat pain Mood: Anxiety Family history of migraine or other headache disorder: mother, father, grandparent Pertinent denials include: History of concussion/head injury, Respiratory d/o, Clotting or hematology d/o, Pt reports she started having episodes of convulsions about 2 years ago, she had a syncopal episode as she left the room her mother just in. This was different than her recent convulsions. She has had a number of ER/hospital admissions in the last 2 yrs. In 2022, she had an ER eval w/ ? of non-epileptic convulsions. Then in Oct 2023, pt has a [facility] admission for?vomiting, bloody bowel movements, and?dysuria, hyperthyroidism/Grave's thyrotoxicosis. Pt reports on the 3rd day of that admission, she started having episodes of convulsions. She was started on keppra, but this was stopped prior to hospital discharge as episodes were thought to be non-epileptic. 2 day VEEG w/ 2 push-button events did not show epileptic activity. Brain MRI showed mild left frontal white matter changes, and a pituitary microadenoma. Today, she states the convulsion starts w/ feeling very tired, her body becomes stiff, she urinates on herself, she becomes pale, her mouth foams. Her tells her the episode lasts 2-3 minutes. Denies intraictal tongue biting. Afterwards, she feels shaky, tired, and it takes a few minutes to come to. She is unaware of any triggers for these convulsions. She cannot prevent the convulsion once it starts. She reports she has 4-5 convulsive episodes per month. She does not drive. Pt endorses having had a febrile seizure at age 1. Her 7 yo dtr has seizure since age 3-4 yo- similar to hers. Dtr was born premature at 31 weeks. Dtr is f/b [facility] pedi-neurology. Headache questionnaire:? Typical headache characteristics: Prodrome symptoms: Unsure Aura: Blurry vision, sees balck lines lines, phosphorescent vision, vision loss Pain intensity: Sever Location, quality, characteristics: Pounding pain in bilateral retro-orbital, temporal, top of head regions Associated symptoms? Photophobia, Phonophobia, osmophobia, nausea, dizziness, droopy eyelid, altered facial sensation, fatigue, foot numbness, activity intolerance. Postdrome: Unsure Triggers: Unsure. Standing up or bending over aggravates the headache Time of day: No specific time of day Duration and Frequency: daily continuous How does headache impact your life? Makes it difficult to do her daily activities. Current acute medication use/interventions: Tylenol 1000mg q 6 hrs., Prior to would use Ibuprofen 800mh prn Current preventative medication use: Propranolol- for hyperthyroidism tx. Non-pharmacological interventions: Rest Lifestyle considerations: Sleep routine: Bedtime: 12am Wake-up time: 6am Sleep difficulties: Endorses: Snoring, difficulty initiating and maintaining sleep, nocturia, , Fatigue, Restless sleep, Leg Cramps. Caffeine use: causal Substance use: Denies Tobacco, Marijuana, Alcohol use Family planning: Currently [facility] Medical History Pituitary microadenoma Psychogenic nonepileptic seizure Hyperthyroidism Essential hypertension Breast pain, left Overweight (BMI 25.0-29.9) Heavy menses Chronic constipation GERD without esophagitis Anemia HTN (hypertension) Anxiety Surgical History H/O tooth extraction (~12/10/22) H/O: Family History Paternal Aunt Breast cancer, Onset Age: 35 Maternal Aunt Breast cancer, Onset Age: 40 Other Diabetes High cholesterol Hypertension Social History Housing: House Alcohol intake: never Patient Tobacco Use Status: Never used Tobacco e-Cigarette/Vaping Use: Never Used Second Hand Smoke Exposure: No service: No Current occupational status: unemployed Cognitive needs: No Hearing needs: No Vision needs: No Physical Exam Vital Signs: Last Vital Signs Pulse 84 01/31/24 15:36 BP 120/80 01/31/24 15:36 Pulse Ox 97 01/31/24 15:36 Oxygen Delivery Method Room Air 01/31/24 15:36 BMI result Body Mass Index 31.4 Const Orientation/consciousness: patient oriented x3 HEENT Other: No palpable scalp tenderness. Head: Yes normocephalic Resp Effort & Inspection: normal respiratory effort and able to speak in complete sentences Neuro General: patient oriented x3 Cranial nerves: Yes CN's II-XII intact bilaterally Cognition (Neuro): normal cognition Gait exam (Neuro): Normal gait present Motor exam (neuro): 5/5 motor strength present throughout Deep tendon reflexes (DTR's): Right triceps reflex intensity grade: 2+, Left triceps reflex intensity grade: 2+, Rt Biceps (C5, C6): 2+, Left biceps reflex intensity grade: 2+, Right brachioradialis reflex intensity grade: 2+, Left brachioradialis reflex intensity grade: 2+, Right patellar reflex intensity grade: 2+ and Left patellar reflex intensity grade: 2+ Coordination: [id number] test normal, tandem gait normal and Romberg test negative Pupils: Normal pupillary reactivity/response: bilateral Psych Appearance: grossly normal Mental Status: mental status grossly normal Speech and movement: Normal speech and movement present Affect: normal affect Attitude: cooperative Thought process: Normal thought process present Results Reviewed Results Reviewed: Brain MRI w/wo at [facility], 10/31/23, IMPRESSION: Possible 3 mm pituitary microadenoma. Assessment is limited due to motion artifact. There are a few nonspecific T2 hyperintensities in the left frontal lobe white matter. 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 ???No focal, lateralized or epileptiform activity is present. 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 ???No focal, lateralized or epileptiform activity is present. Assessment & Plan Assessment & Plan (1) Convulsions: Code(s): R56.9 - Unspecified convulsions Category: Medical (2) Migraine with aura: Code(s): G43.109 - Migraine with aura, not intractable, without status migrainosus Category: Medical (3) Positive urine test: Code(s): Z32.01 - Encounter for test, result positive Category: Medical Plan Will request the opinion of [facility] Epilepsy clinic, as pt is currently 6 weeks and to further assess etiology of pt's convulsive episodes. Follow-up w/ endocrinology. Pt will need f/u brain/pituiatry MRI. For overall headache management: Optimize good self-care, including but not limited to maintaining a healthy diet, adequate fluid intake, adequate sleep, and engaging in regular physical activity. Track headaches. For acute headache treatment: Discussed importance of taking acute medications at the first sign of headache, however stressed importance of avoiding acute medication overuse. Pt advised to reduce her use of Tylenol. Once convulsive episodes better assessed, could consider trial of triptan. Acute migraine medication contraindications: Ibuprofen, gepant, DHE d/t . For headache prevention medication: Start Magnesium 400mg qhs Increase Propranolol from 10mg bid to 20mg bid- ordered initially for hyperthyroidism. Potential adverse effects of betablockers, including but not limited to fatigue, hypotension, slow heart rate, mood changes, respiratory changes. Previous migraine prevention medication trials: None other Migraine prevention medication contraindications: Caution w/ many agents d/t . Pt seen in collaboration w/ Dr Evie Joy. Pt to follow-up in 3 months or sooner prn. Orders: Referrals Neurology Referral R56.9 - Unspecified convulsions, R73.01 - Impaired fasting glucose, Z32.01 - Encounter for test, result positive Medications: New magnesium oxide may hold for loose stools 400 mg PO BEDTIME 30 days 30 tabs 6RF Changed From propranolol 10 mg PO BID 90 days 180 tabs 0RF To propranolol 20 mg (2 x 10 mg) PO BID 90 days 360 tabs 1RF Coding Level of Care Code New Pt Level 4 (23977) Diagnoses Convulsions R56.9 Migraine with aura G43.109 Positive urine test Z32.01
[2024-01-31 15:36] VITALS: BP 120/80; PULSE 84; O2SAT 97; BMI 31.4
== END 2024-01-31 16:31 | disposition home or self-care (01) ==
LOC: HO.HSMS 15:12
PROVIDERS: PCP Internal Medicine; Visit Provider Nurse Practitioner Family
DX: R56.9 Unspecified convulsions (principal); G43.109 Migraine with aura, not intractable, without status migrainosus; Z32.01 Encounter for pregnancy test, result positive
CPT/HCPCS: 99204

== ENCOUNTER → 2024-01-31 15:12 | Outpatient (BNVA) | payer OTHER, SELFPAY | PROVIDERS: PCP Internal Medicine; Visit Provider Nurse Practitioner Family | DX: O99.351 Diseases of the nervous system complicating pregnancy, first trimester (principal); G40.909 Epilepsy, unspecified, not intractable, without status epilepticus; G43.109 Migraine with aura, not intractable, without status migrainosus; O99.810 Abnormal glucose complicating pregnancy; Z3A.01 Less than 8 weeks gestation of pregnancy | CPT/HCPCS: 99202 ==

== ENCOUNTER 2024-02-05 19:42 | Emergency (ER) | payer OTHER, SELFPAY ==
[2024-02-05 19:54] VITALS: BP 116/73; PULSE 96; RESP 19; TEMP 37.1; O2SAT 99; BMI 31.7
--- NOTE | 2024-02-05 19:54 | ED_ITS ---
HPI - General Adult General Chief complaint: Allergic Reaction Stated complaint: ?Allergic reaction/Vomiting Time Seen by Provider: 02/05/24 20:39 Source: patient Mode of arrival: ambulatory Limitations: no limitations History of Present Illness ED Provider: devang LINDSAY narrative: Patient with history of allergic reaction to shrimp and jesus crab which she had before without any allergic reaction within hour of eating cramps patient noticed tingling and swelling of the lips and itching all over patient is 7 weeks vomited once Related Data Previous Rx's ?Medication ?Instructions ?Recorded miscellaneous medical supply #1 ea 03/30/23 (Blood Pressure Cuff) amlodipine 10 mg tablet 10 mg PO DAILY 90 days #90 tabs 12/05/23 magnesium oxide 400 mg (241.3 mg 400 mg PO BEDTIME 30 days #30 tabs 01/31/24 magnesium) tablet propranolol 10 mg tablet 20 mg (2 x 10 mg) PO BID 90 days 01/31/24 #360 tabs sennosides 8.6 mg tablet (Senna 8.6 mg PO BEDTIME PRN constipation 02/01/24 Lax) #30 tabs diphenhydramine HCl 25 mg capsule 25 mg PO TID PRN allergic reaction 02/05/24 (Benadryl) #20 caps prednisone 20 mg tablet 40 mg (2 x 20 mg) PO DAILY #10 tabs 02/05/24 Allergies Allergy/AdvReac Type Severity Reaction Status Date / Time morphine Allergy Severe Vomiting Verified 02/05/24 19:58 amoxicillin Allergy Mild Rash Verified 02/05/24 19:58 clavulanic acid Allergy Unknown Unknown Verified 02/05/24 19:58 [From Augmentin] cyclobenzaprine Allergy Palpitation Verified 02/05/24 19:58 [From Flexeril] s escitalopram Allergy Palpitation Verified 02/05/24 19:58 s hydralazine Allergy Nausea and Verified 02/05/24 19:58 Vomiting lorazepam [From Ativan] Allergy Palpitation Verified 02/05/24 19:58 s Review of Systems Review of Systems: Yes all other systems are reviewed and are negative PMFSH Past Medical History Medical History Pituitary microadenoma Psychogenic nonepileptic seizure Hyperthyroidism Essential hypertension Breast pain, left Overweight (BMI 25.0-29.9) Heavy menses Chronic constipation GERD without esophagitis Anemia HTN (hypertension) Anxiety Surgical History H/O tooth extraction (~12/10/22) H/O: Family History Family History Paternal Aunt Breast cancer, Onset Age: 35 Maternal Aunt Breast cancer, Onset Age: 40 Other Diabetes High cholesterol Hypertension Social History Social History Housing: House Alcohol intake: never Patient Tobacco Use Status: Never used Tobacco e-Cigarette/Vaping Use: Never Used Second Hand Smoke Exposure: No Advance Directives: No Advance Directives Information Provided: No Do you have a plan to hurt others: No Plan service: No Current occupational status: unemployed Cognitive needs: No Hearing needs: No Vision needs: No Physical Exam ED Vital Signs: Vital Signs - 24 hr 02/05/24 19:54 02/05/24 20:29 02/05/24 21:00 Temperature 98.7 F 98.0 F Pulse Rate 96 72 83 Respiratory Rate 19 18 18 Blood Pressure 116/73 127/65 119/67 Pulse Oximetry 99 99 98 Oxygen Delivery Method Room Air Room Air Room Air 02/05/24 23:31 Temperature 99 F Pulse Rate 98 Respiratory Rate 15 Blood Pressure 125/70 Pulse Oximetry 100 Oxygen Delivery Method Room Air BMI result Body Mass Index 31.7 Appearance: Alert. Oriented X3. No acute distress. ENT: Pharynx normal. Oral Mucosa moist slight swelling of the lips uvula normal oropharynx normal Neck: Normal inspection. Neck supple. CVS: Normal heart rate and rhythm. Pulses normal. Respiratory: No respiratory distress. Equal air entry bilateral, no wheezing/rales/rhonchi Abdomen: Soft and nontender. Bowel sounds are present, Skin: Skin warm and dry. Normal skin color. Normal skin turgor. Extremities: No lower extremity edema. No calf tenderness Neuro: Oriented X 3. Course Course Course Narrative: This is a rapid medical exam performed by Oumar Mao NP: Additional HPI, ROS, PE not included below will be deferred to primary provider. Patient is a 28-year-old female presenting to the ED with complaint of itching in throat, vomiting, diarrhea, diffuse pruritis after eating crab and jesus crab at a buffet with her family. She did not take any medications prior to arrival because she is 7 weeks and was unsure if she could take benadryl. No rash noted, no angioedema or uvula edema, lungs clear throughout. Plan: benadryl and famotidine Medications Administered Discontinued Medications Generic Name Dose Route Start Last Admin Trade Name Freq PRN Reason Stop Dose Admin Diphenhydramine HCl 25 mg 02/05/24 19:59 02/05/24 20:02 Diphenhydramine Hcl 25 Mg Capsule PO 02/05/24 20:00 25 mg ONCE ONE Administration Diphenhydramine HCl 25 mg 02/05/24 20:59 02/05/24 21:51 Diphenhydramine Hcl 50 Mg/Ml Vial IVPUSH 02/05/24 21:00 25 mg ONCE ONE Administration Famotidine 20 mg 02/05/24 19:59 02/05/24 20:02 Famotidine 20 Mg Tablet PO 02/05/24 20:00 20 mg ONCE ONE Administration Methylprednisolone Sodium Succinate 125 mg 02/05/24 20:59 02/05/24 21:51 Methylprednisolone Sod Succ 125 Mg/2 Ml Vial IVPUSH 02/05/24 21:00 125 mg ONCE ONE Administration Medical Decision Making Medical Decision Making [facility] Narrative: Patient's reaction to crab improved after Benadryl IV steroids Discharge Plan Discharge Clinical Impression: Allergic reaction to food Patient Disposition: Home, Self-Care Instructions: Food Allergy (ED) Additional Instructions: Likely have food allergy from seafood You had Take Benadryl 1 tablet every 6 hours as needed for itching Take prednisone as advised Prescriptions: New diphenhydramine HCl [Benadryl] 25 mg capsule 25 mg PO TID PRN (Reason: allergic reaction) Qty: 20 0RF prednisone 20 mg tablet 40 mg PO DAILY Qty: 10 0RF No Action (DME) Blood Pressure Cuff Misc See Rx Instructions .ROUTE .MEDSUPPLY Qty: 1 0RF Rx Instructions: As directed amlodipine 10 mg tablet 10 mg PO DAILY 90 Days Qty: 90 0RF sennosides [Senna Lax] 8.6 mg tablet 8.6 mg PO BEDTIME PRN (Reason: constipation) Qty: 30 1RF propranolol 10 mg tablet 20 mg PO BID 90 Days Qty: 360 1RF magnesium oxide 400 mg (241.3 mg magnesium) tablet 400 mg PO BEDTIME 30 Days Qty: 30 6RF Rx Instructions: may hold for loose stools Interventions: ED Discharge Assessment Last Done: 02/05/24 23:31 Discharge Date/Time: 02/05/24 23:33 Print Language: Bahraini
[2024-02-05] MEDS: Famotidine 20 MG TABLET PO (20:02)
[2024-02-05] MEDS: diphenhydrAMINE HCL 25 MG CAPSULE PO (20:02)
[2024-02-05 20:29] VITALS: BP 127/65; PULSE 72; RESP 18; TEMP 36.7; O2SAT 99
--- NOTE | 2024-02-05 20:32 | MHC.EDTECH ---
Patient came from the waiting room,changed into hospital attire,vitals taken and placed on the satellite project site monitor,family at bedside and call oliveira in reach
[2024-02-05 21:00] VITALS: BP 119/67; PULSE 83; RESP 18; O2SAT 98
[2024-02-05] MEDS: diphenhydrAMINE HCL 50 MG/ML VIAL 25 MG IVPUSH (21:51)
[2024-02-05] MEDS: methylPREDNISolone Sod Succ 125 MG/2 ML VIAL IVPUSH (21:51)
[2024-02-05 23:31] VITALS: BP 125/70; PULSE 98; RESP 15; TEMP 37.2; O2SAT 100
== END 2024-02-05 23:33 | disposition home or self-care (01) ==
PROVIDERS: Emergency Provider Internal Medicine; PCP Internal Medicine
DX: O9A.211 Injury, poisoning and certain other consequences of external causes complicating pregnancy, first trimester (principal); T78.1XXA Other adverse food reactions, not elsewhere classified, initial encounter; Z3A.01 Less than 8 weeks gestation of pregnancy
CPT/HCPCS: 96374; 96375; 99283; 99284; J1200; J2919

== ENCOUNTER 2024-02-12 09:47 | Outpatient (REF) | payer OTHER, SELFPAY ==
[2024-02-12 10:57] LABS: Appearance Urine Clear; Color Urine Yellow; Glucose Urine UA Negative (Negative); Leukocyte Esterase Urine Large (3+) (Negative); Nitrite Urine Negative (Negative); Specific Gravity - Urine <= 1.005 (1.005-1.025); UMIC TRIGGER UACC YES; Urine Blood Negative (Negative); Urine Ketones Negative (Negative); Urine Protein Negative (Neg-Trace)
[2024-02-12 11:13] LABS: Bacteria Urine None Seen (None Seen); Hyaline Casts Urine 0-2 /LPF (0-2); RBC Urine 0-2 /HPF (0-2); Squamous Epithelial Cell Urine 0-2 /HPF (0-2); UACC Culture Trigger YES
== END 2024-02-12 09:48 | disposition home or self-care (01) ==
LOC: HO.LAB 09:47
PROVIDERS: PCP Internal Medicine; Visit Provider Internal Medicine
DX: R30.0 Dysuria (principal); E05.90 Thyrotoxicosis, unspecified without thyrotoxic crisis or storm; R53.83 Other fatigue
CPT/HCPCS: 81001; 87086; 87147

== ENCOUNTER 2024-03-05 09:04 | Outpatient (REF) | payer OTHER, SELFPAY ==
--- NOTE | ~2024-03-05 | MR_ITS ---
EXAMINATION: MR BRAIN WITHOUT CONTRAST CLINICAL INFORMATION: Pituitary protocol. Patient is presently 6 weeks . History of pituitary tumor, history of seizures and headaches. Patient states left arm and leg weakness, left facial weakness, double vision, vertigo. COMPARISON: None available. TECHNIQUE: MRI of the brain was obtained using routine sequences without contrast. Examination is limited as the patient was unable to complete the exam. Only a sagittal T1 noncontrast, axial diffusion, axial T2 FLAIR, axial T2 fat-sat, and very motion degraded sagittal T2 FLAIR sequences were able to be acquired. No contrast was administered. FINDINGS: There is no diffusion restriction. There is no intracranial hemorrhage, acute infarction, mass effect, or edema. There is no extra-axial collection. Ventricles, sulci, and cisterns are normal in size and configuration for patient age. No shift of midline. There are mild scattered punctate and minimally confluent foci of white matter T2 hyperintensity in the periventricular, subcortical, and hemispheric deep white matter, nonspecific. No pericallosal or pericallosal marginal lesions. No callosal septal lesion. Midline structures appear normally formed. The pituitary gland is not enlarged, appears normal with concave superior border. Posterior fossa structures appear normal. Cerebellar tonsils are appropriately located. Major flow voids are preserved within the skull base. The globes and orbital contents demonstrate no abnormalities. Mild mucosal thickening seen throughout the ethmoid sinuses. Paranasal sinuses are otherwise clear bilaterally. Nasal septum is essentially midline without spur. The mastoids and tympanic cavities are normally aerated. Extracranial soft tissues demonstrate mildly prominent adenoidal soft tissues, likely reactive. No suspicious bone marrow changes are evident. Atlantoaxial joint is normal. Craniocervical junction is normal. MR/MR head/brain wo con IMPRESSION: 1. Incomplete and limited examination. The patient could not complete the examination as described above. The pituitary gland could not be assessed, but does not appear enlarged. 2. No evidence of intracranial hemorrhage, acute infarction, mass effect, or edema. 3. There are mild bilateral scattered foci of punctate and minimally confluent white matter T2 hyperintensity in the supratentorial white matter. No distribution or morphology specific to demyelinating disease. 4. Please see the body the report for ancillary findings.
== END 2024-03-05 09:05 | disposition home or self-care (01) ==
LOC: HO.MRI 09:04
PROVIDERS: PCP Internal Medicine; Visit Provider Internal Medicine
DX: D35.2 Benign neoplasm of pituitary gland (principal); F44.5 Conversion disorder with seizures or convulsions
CPT/HCPCS: 70551

== ENCOUNTER → 2024-03-05 09:08 | Outpatient (BNV) | payer OTHER, SELFPAY | PROVIDERS: PCP Internal Medicine; Visit Provider Radiology Diagnostic Radiology | DX: D35.2 Benign neoplasm of pituitary gland (principal); Z33.1 Pregnant state, incidental | CPT/HCPCS: 70551 ==

== ENCOUNTER 2024-05-07 07:39 | Outpatient (AMB) | payer OTHER, SELFPAY ==
--- NOTE | 2024-05-07 07:40 | MHC.OFFVIS ---
Intake Visit Reasons: 3 month F/U-CONF Intake Note: Patient presents for follow up Allergies morphine Allergy (Severe, Verified 05/07/24 07:40) Vomiting amoxicillin Allergy (Mild, Verified 05/07/24 07:40) Rash clavulanic acid [From Augmentin] Allergy (Unknown, Verified 05/07/24 07:40) Unknown cyclobenzaprine [From Flexeril] Allergy (Verified 05/07/24 07:40) Palpitations escitalopram Allergy (Verified 05/07/24 07:40) Palpitations hydralazine Allergy (Verified 05/07/24 07:40) Nausea and Vomiting lorazepam [From Ativan] Allergy (Verified 05/07/24 07:40) Palpitations Medication List - Last Reconciled 05/07/24 by LIZZY Mcgill amlodipine 10 mg PO DAILY 90 days diphenhydramine HCl (Benadryl) 25 mg PO TID PRN 30 days magnesium oxide 400 mg PO BEDTIME 30 days metoclopramide HCl 5 mg PO Q4-6H PRN 30 days MDD 4 tabs miscellaneous medical supply (Blood Pressure Cuff) As directed prednisone 40 mg (2 x 20 mg) PO DAILY propranolol 20 mg (2 x 10 mg) PO BID 90 days sennosides (Senna Lax) 8.6 mg PO BEDTIME PRN HPI Comments Details: 29-yr-old female presents for f/u televideo visit via [facility] Pt is currently 21 weeks . She states propranolol was changed to Labetol 100mg bid however this worsened BP and palpitations, so she has resumed Propranolol at 20mg bid. She does endorse frequent lightheadedness and room spinning dizziness She still has palpitations, wakes up in the middle of niught w/ palpitations, gasping. Endorses snoring and daytime sleepiness. Takes ~8 bottles of water a day. She has had 1 typical convulsive episode a few weeks ago that lasted 3 mon. She has not heard from [facility] epilepsy clinic. VEEG report rec'd- was negative. She is having strong headaches with visual changes. Denies vision chnages w/o headache. She did have a brain MRI in February, could not complete exam, but results showed mild non-spefic white matter changes. Using Tylenol prn- not very helpful. Has tried Trial Sumatriptan 100mg tab, 1/2 - 1 tab (50-100mg) at onset of headache, may repeat in 2 hours. Max of 2 tabs (200mg) per 24 hours. May adjunct with OTC Tylenol 650mg q 4 hours, Ibuprofen 600mg q 6 hours, or Naproxen 440mg q 12 hrs prn. before- states she did not tolerate itr. Baseline headache characteristics: Prodrome symptoms: Unsure Aura: Blurry vision, sees black lines lines, phosphorescent vision, vision loss Pain intensity: Sever Location, quality, characteristics: Pounding pain in bilateral retro-orbital, temporal, top of head regions Associated symptoms? Photophobia, Phonophobia, osmophobia, nausea, dizziness, droopy eyelid, altered facial sensation, fatigue, foot numbness, activity intolerance. Postdrome: Unsure [facility] Medical History Pituitary microadenoma Psychogenic nonepileptic seizure Hyperthyroidism Essential hypertension Breast pain, left Overweight (BMI 25.0-29.9) Heavy menses Chronic constipation GERD without esophagitis Anemia HTN (hypertension) Anxiety Surgical History H/O tooth extraction (~12/10/22) H/O: Family History Paternal Aunt Breast cancer, Onset Age: 35 Maternal Aunt Breast cancer, Onset Age: 40 Other Diabetes High cholesterol Hypertension Social History Housing: House Alcohol intake: never Patient Tobacco Use Status: Never used Tobacco e-Cigarette/Vaping Use: Never Used Second Hand Smoke Exposure: No service: No Current occupational status: unemployed Cognitive needs: No Hearing needs: No Vision needs: No Physical Exam Const General: cooperative and no acute distress Orientation/consciousness: patient oriented x3 Resp Effort & Inspection: normal respiratory effort and able to speak in complete sentences Neuro General: patient oriented x3 Cognition (Neuro): normal cognition Psych Appearance: grossly normal Mental Status: mental status grossly normal Speech and movement: Normal speech and movement present Affect: normal affect Attitude: cooperative Telehealth Telehealth Telehealth Platform: Doximity Location of provider rendering services: practice address Location of patient: address on file Patient Identification confirmed using: Name, : Yes Telehealth method: video Patient verbally consented to treatment: Yes Patient verbally consented to billing insurance company: Yes Patient informed of any privacy concerns related to visit: Yes Minutes spent on Phone/Video with Pt.: 21 Assessment & Plan Assessment & Plan (1) Migraine with aura: Code(s): G43.109 - Migraine with aura, not intractable, without status migrainosus Category: Medical (2) Convulsions: Code(s): R56.9 - Unspecified convulsions Category: Medical (3) Snoring: Code(s): R06.83 - Snoring Category: Medical (4) Sleep difficulties: Code(s): G47.9 - Sleep disorder, unspecified Category: Medical (5) Excessive daytime sleepiness: Comment: ESS 10 Code(s): G47.19 - Other hypersomnia Category: Medical Plan Will f/u on request the opinion of [facility] Epilepsy clinic, as pt is currently and to further assess etiology of pt's convulsive episodes. Follow-up w/ endocrinology. Consider f/u brain/pituitary MRI w/ pre-medication. HST to assess for sleep apnea. ? For overall headache management: Optimize good self-care, including but not limited to maintaining a healthy diet, adequate fluid intake, adequate sleep, and engaging in regular physical activity. Track headaches. ? For acute headache treatment: Tylenol prn. Try adjunctive prn Benadryl and Metoclopramide (may help headache itself). If ineffective, consider trial of alternate triptan. Acute migraine medication contraindications: Ibuprofen, gepant, DHE d/t . ? For headache prevention medication: Magnesium 400mg qhs Propranolol 20mg bid- ordered initially for hyperthyroidism. Previous migraine prevention medication trials: None other Migraine prevention medication contraindications: Caution w/ many agents d/t . Orders: Orders RT home sleep study 05/07/24 G47.19 - Other hypersomnia, G47.9 - Sleep disorder, unspecified, R06.81 - Apnea, not elsewhere classified, R06.83 - Snoring Medications: New metoclopramide HCl 5 mg PO Q4-6H PRN 30 tabs 1RF nausea, vomitting or migraine headache 30 days MDD 4 tabs Changed From diphenhydramine HCl 25 mg PO TID PRN 20 caps 0RF allergic reaction To diphenhydramine HCl (Benadryl) 25 mg PO TID PRN 30 caps 1RF allergic reaction or migraine headache 30 days Coding Level of Care Code Tele Est Pt Level 4 (18712) Diagnoses Migraine with aura G43.109 Convulsions R56.9 Snoring R06.83 Sleep difficulties G47.9 Excessive daytime sleepiness G47.19
== END 2024-05-07 09:06 | disposition home or self-care (01) ==
LOC: HO.HSMS 07:39
PROVIDERS: PCP Internal Medicine; Visit Provider Nurse Practitioner Family
DX: G43.109 Migraine with aura, not intractable, without status migrainosus (principal); R56.9 Unspecified convulsions; R06.83 Snoring; G47.9 Sleep disorder, unspecified; G47.19 Other hypersomnia
CPT/HCPCS: 99214

== ENCOUNTER → 2024-05-07 07:39 | Outpatient (BNVA) | payer OTHER, SELFPAY | PROVIDERS: PCP Internal Medicine; Visit Provider Nurse Practitioner Family ==

== ENCOUNTER 2024-10-02 10:23 | Outpatient (AMB) | payer OTHER, SELFPAY ==
--- NOTE | 2024-10-02 11:22 | MHC.OFFWIV ---
Intake Vital Signs 10/02/24 11:24 Weight 166 lb BP 118/80 Blood Pressure Location Rt brachial Position Sitting Pulse 67 Pulse Source Pulse Oximeter Pulse Oximetry (%) 98 Oxygen Delivery Method Room Air Intake Visit Reasons: EP-headaches, chest pain, chills due propanolol Intake Note: Patient here for reaction to her propranolol, she states she feels like her heart slows down and then starts to race, dizziness, nausea, headaches and SOB which has been present for about 1 month after her . Patient Tobacco Use Status: Never used Tobacco Allergies morphine Allergy (Severe, Verified 10/02/24 11:) Vomiting amoxicillin Allergy (Mild, Verified 10/02/24:) Rash clavulanic acid [From Augmentin] Allergy (Unknown, Verified 10/02/24) Unknown cyclobenzaprine [From Flexeril] Allergy (Verified 10/02/24) Palpitations escitalopram Allergy (Verified 10/02/24:) Palpitations hydralazine Allergy (Verified 10/02/24:) Nausea and Vomiting lorazepam [From Ativan] Allergy (Verified 10/02/24:) Palpitations Do you need a note to return to daycare/school/sports/work: No HPI HPI Comments History of Present Illness Details This is a 29-year-old female that is seen utilizing a full time staff interpreter. Patient has a past medical history of psychogenic seizures, hyperthyroidism, hypertension, gastroesophageal reflux disease, preeclampsia and anemia. Patient states that she takes propranolol twice daily for management of her thyroid, blood pressure and headaches. Patient is 6 weeks and states following her delivery when she takes the propranolol she will feel lightheaded, nauseous with a decreased heart rate less than 60. Patient states that her blood pressure will temporarily rise after she takes the propranolol and then be as low as 120/80. A recheck of her blood pressure at the time of this office visit reveals a blood pressure of 138/86. Patient is concerned that she may need an adjustment in the dose of her propranolol. Patient states that the propranolol, however has decreased the frequency of her headaches. Patient denies having any visual changes, neck pain, lightheadedness, syncope or seizure-like activity [facility] Medical History Pituitary microadenoma Psychogenic nonepileptic seizure Hyperthyroidism Essential hypertension Breast pain, left Overweight (BMI 25.0-29.9) Heavy menses Chronic constipation GERD without esophagitis Anemia HTN (hypertension) Anxiety Surgical History H/O tooth extraction (~12/10/22) H/O: Family History Paternal Aunt Breast cancer, Onset Age: 35 Maternal Aunt Breast cancer, Onset Age: 40 Other Diabetes High cholesterol Hypertension Social History Housing: House Alcohol intake: never Patient Tobacco Use Status: Never used Tobacco e-Cigarette/Vaping Use: Never Used Second Hand Smoke Exposure: No service: No Current occupational status: unemployed Cognitive needs: No Hearing needs: No Vision needs: No Review of Systems Const All systems reviewed & are unremarkable except as noted in HPI and below Reports no additional complaints Eyes Reports no additional complaints ENT Reports no additional complaints, Denies otalgia and Denies sinus pressure Card Reports no additional complaints, Denies chest pain, Denies syncope and Denies rapid heart rate Resp Reports no additional complaints GI Reports no additional complaints Reports no additional complaints Musc Reports no additional complaints Skin/Breast Reports system reviewed and no additional complaints, except as documented Neuro Reports no additional complaints, Reports Abnormal speech present and Denies syncope Psych Reports no additional complaints Vinayak/Lymph Reports no additional complaints Aller/Immun Reports no additional complaints Physical Exam Vital Signs: Last Vital Signs Pulse 67 10/02/24 11:24 BP 118/80 10/02/24 11:24 Pulse Ox 98 10/02/24 11:24 Oxygen Delivery Method Room Air 10/02/24 11:24 Const General: cooperative, healthy appearing, comfortable, no acute distress, well developed, alert, awake and Physically active; No ill appearing or lethargic Nutritional Appearance: average body habitus Orientation/consciousness: patient oriented x3 and No lethargic Limitations: no limitations HEENT Head: Yes normal to inspection and Yes normocephalic Ears: hearing grossly normal bilaterally, external ears normal, TM's normal bilaterally and EAC's normal Eyes General: appearance normal, both eyes and all related structures Resp Effort & Inspection: normal respiratory effort, able to speak in complete sentences, no cough and no respiratory distress Auscultation: clear to auscultation bilaterally Cardio Rate: regular rate Rhythm: regular rhythm Skin General skin exam: no rashes or lesions noted Neuro General: patient oriented x3 Cranial nerves: Yes CN's II-XII intact bilaterally Cognition (Neuro): normal cognition Speech: Abnormal speech present Gait exam (Neuro): Normal gait present Psych Appearance: grossly normal Mental Status: mental status grossly normal Insight: Good insight present (Psych) Judgement: Good judgement present (Psych) Assessment & Plan Assessment & Plan (1) Lightheaded: Comment: Patient is neurologically intact, in no acute distress and is not currently hypotensive. I have explained to the patient that it is not appropriate to change the dose of her medications through the walk-in. Patient is referred back to her forging press lever tender for a re-evaluation of her medications in this time. Patient is in agreement of this plan of care. Code(s): R42 - Dizziness and giddiness Plan: Patient will call her forging press lever tender through [facility] for a reevaluation of her medication regimen. Coding Level of Care Code Est Pt Level 3 (98662) Diagnoses Lightheaded R42 Time Spent (min) 25
[2024-10-02 11:24] VITALS: BP 118/80; PULSE 67; O2SAT 98
--- OUTSIDE RECORDS SUMMARY | 2024-10-02 11:28 | XMS_ITS | Clinical Summary ---
Author Organization [facility] Address [address] [place] [address] Care Team Providers Care Rope Maker Name Role Phone Jeffy Gutierrez MD Primary Care Provider Surgical History Surgery Date Site/Laterality Comments SECTION 2017 PROCEDURE: HISTORICAL DELIVERY Medical History Medical History Date Comments Pre-eclampsia 2016 DX:Pre-eclampsia Type AB blood, Rh positive 04/2019 DX:Ty pe AB blood, Rh positive Social History Tobacco Use Types Packs/Day Years Used Date Smoking Tobacco: Never Smokeless Tobacco: Never Alcohol Use Standard Drinks/Week Comments No 0 (1 standard drink = 0.6 oz pur e alcohol) Sex and Gender Information Value Date Recorded Sex Assigned at Not on file Gender Identity Not on file Sexual Orientation Not on file Obstetrics History Last Filed Vital Signs Vital Sign Reading Time Taken Comments Blood Pressure 105/67 12/26/2023 3:49 PM EDT Aut o Cuff Pulse 66 12/26/2023 3:49 PM EDT Temperature - - Respiratory Rate - - Oxygen Saturation - - Inhaled Oxygen Concentration - - Weight 70.2 kg (154 lb 12.8 oz) 12/26/2023 3:49 PM EDT Height 152.4 cm (5') 12/26/2023 3:49 PM EDT Body Mass Index 30.23 12/26/2023 3:49 PM EDT Plan of Treatment Health Maintenance Due Date Last Done Comments DTaP,Tdap,and Td Vaccines (1 - Tdap) 2013 Hepatitis B Vaccines (1 of 3 - 19+ 3-dose series) 2013 Cervical Cancer Screening: P ap Smear 2015 Cholesterol Screening (Lipid Panel) 08/14/2022 Depression Screening 08/14/2022 HIV Screening 08/14/2022 Hepatitis C Screening 08/14/2022 Social Influencers of Health Screening 08/14/2022 Hypertension/CHF/CAD Annual BMP Blood Test 04/05/2024 COVID-19 Vaccine ( - 2023-2 5 season) 2024 Influenza Vaccine (#1) 2024 HIB Vaccines Aged Out No longer eligi ble based on patient's age to complete this topic HPV Vaccines Aged Out No longer eligi ble based on patient's age to complete this topic Hepatitis A Vaccines Aged Out No long er eligible based on patient's age to complete this topic IPV Vaccines Aged Out No longer eligi ble based on patient's age to complete this topic MMR Vaccines Aged Out No longer eligi ble based on patient's age to complete this topic Meningococcal ACWY Vaccine Aged Out N o longer eligible based on patient's age to complete this topic Pneumococcal Vaccine: Pediat rics (0 to 5 Years) and At-Risk Patients (6 to 64 Years) Aged Out No longer eligible b ased on patient's age to complete this topic RSV Immunization Patients Un bernard 20 months Aged Out No longer eligible b ased on patient's age to complete this topic Varicella Vaccines Aged Out No longer eligible based on patient's age to complete this topic Advance Directives Documents on File Type Date Recorded Patient Surveyor Helper Expl anation Health Care Decision (hx) 08/30/2023 HE ALTH CARE PROXY Health Care Decision (hx) 08/30/2023 HE ALTH CARE PROXY Health Care Decision (hx) 08/30/2023 HE ALTH CARE PROXY Care Teams Rope Maker Relationship Specialty Start Date End Date Jeffy Gutierrez MD [address] [place] [address] Dr [address] JO-ANN Black PCP - General 10/25/23
--- OUTSIDE RECORDS SUMMARY | 2024-10-02 11:28 | XMS_ITS | Data Portability ---
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 Of note she and her friend are poor historians and it is hard to tell if I am getting a full story or not. She reports that for a few months she has been battling a dental infection. She now has new onset of left parotid swelling since this morning. Originally she states it was 2 days ago but then after I call [facility] to review records w/ her permission her story changes to starting this morning as she did not have this complaint when she saw them yesterday. She reports it gets so bad it is very painful and has caused her eyes to hurt and get so swollen she cannot open them . She reports she has been in talks w/ her dentist about this. Last she spoke to them this past week they told her she was not allowed to follow up until her URI went away per patient. She reports she was given clindamycin by dentist back in July for similar issue but she didn't take it because she got the same medication from the hospital and she took that instead. SHe has now started taking her leftover clindamycin from July, despite me asking multiple times she has not told me how many doses. She currently wants to be checked out and told if she needs to go back to the hospital or not. Nothing makes her sxs better or worse. She denies any fever, chills, current visual changes, ocular pain, throat/tongue swelling, diff breathing, chest pain, numbness/tinglin g. No other reported sxs or concerns today. Exam: Vitals: VSS and afebrile Constitutional: 27 yo Well developed, well nourished, pleasant patient in no apparent distress. Upright comfortable and not toxic. Eyes: PERRL at 4mm, EOM's intact, No swelling, no discharge, sclera / conjunctiva clear, no surrounding erythema or tenderness ENT: Left parotid/cheek swelling and some tenderness, TMs/ Canals clear without evidence of infection, mild clear nasal dc, no erythema/ exudate noted in oropharynx, uvula midline at this time, trachea midline, moist mucous membranes, no evidence of internal oral involvement, no lesions, masses, edema, exudates, or redness. CV: RRR, no rubs/ murmurs/ gallops heard, 2+ radial pulses bilaterally, no edema and no calf tenderness, 2+ DP/ PT pulses bilaterally Pulm: breath sounds clear and equal bilaterally, no wheeze/ rhonchi or rales on auscultation. Speaks in full sentences, no increased work of breathing. No stridor. GI: Soft, non-tender to palpation. No masses, normal bowel sounds. No guarding and no distension. MS: Self ambulatory patient, moves all limbs without deficit, no evidence of trauma Neuro: No focal deficits, A&O x4, gait is not ataxic Skin: No rash, no redness, no warmth, see cheek swelling above Psych: Calm, cooperative, non-manic. Pleasant. DDx considered, but not limited to: Left Parotid Swelling - present, apparently new, discussed w/ member of [facility] who reports this is new according to record from yesterday; ? stone, ? infection Dental Abscess - I do not see any internal abscess, swelling, or redness in her mouth Peritonsillar Abscess - uvula midline w/ no throat edema Abel Angina - no woody or oral edema Work up/Results: N/a Plan/Discussion: Left Parotid Swelling: -Present w/ mild Left check swelling on today's visit -Pt w/ lot of anxiety and very poor historian, story changes multiple times during visit -She reports she was seen in [facility] ED in Jul for this issue -She gives me permission to call [facility] to review records, I speak with staff Pharmacist Yadira Grace who reports that she has been seen numerous times between Jul, Aug and even yesterday. She has never been seen for a dental issue or facial swelling however. No mention of facial swelling in her chart from yesterday. She was educated at that time [facility]. -Today now w/ unilateral what appears to be parotid gland swelling -Currently there does not seem to be any internal mouth or throat involvement. No edema to tongue or lips. She has no breathing difficulty or stridor. VSS and afebrile as well -Discussed w/ her that currently her exam is benign and she has stable VS. She does have new swelling however. It is hard for me to tell how rapidly progressive this has been. -She is nervous and wants to know if she needs to go back to the hospital for this issue. I discussed that I do not believe she does. She continues to be nervous however and I did tell her that if she is very nervous or has other concerns I cannot stop her from going in. She reports that she is going to go get checked out to be safe. -I did discuss that she needs to follow up w/ PCP and dentist first and foremost for this issue. Stop old clindamycin. Suck on sour candies as her sxs are likely d/t parotid stone. -True ED precautions discussed F/u w/ us/PCP if needed for cont sxs Pt is on agreement and verbalizes understanding with the above plans at this time. Pt has no other questions or concerns at this time. All questiosn are answered to the best of my ability. Pt thanks us for our visit today. [email or web address] Not available 09/17/2022 14:17:49 Plan of Treatment Reminders Order Date Submit Date Provider Last Modified By Organization Details Last Modified Time Details Appointments None record ed. Lab None record ed. Referral None record ed. Procedures None record ed. Surgeries None record ed. Imaging None record ed. Medication Orders None record ed. Patient TargetsNo targets recorded. Patient InstructionsNo instructions recorded. Reason for Referral None Reported. Procedures Surgical History Date Name Laterality Status Provider Name and Address Organization Details Recorded Time 09/17/19 23 Medication Review completed REVA Tomas [address], [place], [address], [place] [facility] 09/17/2022 14:01:37 section completed REVA Tomas [address], [place], [address], [place] [facility] 09/17/2022 12:55:35 Imaging Results None recorded. Procedure Notes None recorded. Medical Equipment None Reported. Allergies Allergen ID Allergen Name Allergen Category Reaction Reaction Severity Criticality Documentation Date Start Date Code Code System Note Provider Name and Address Organization Details Recorded Time [id number] Augmentin medicatio n Not available Not available Not available 09/17/2022 12971 2 RxNorm REVA Michelle [address], [facility] [place], [address], [place] [facility] 12:48:53 [id number] nifedipin e medicatio n Not available Not available Not available 09/17/2022 7417 RxNorm REVA Michelle [address], [facility] [place], [address], [place] [facility] 3 12:48:58 [id number] Mucinex medicatio n Not available Not available Not available 09/17/2022 07458 7 RxNorm REVA Michelle [address], [facility] [place], [address], [place] [facility] 13:06:54 [id number] cyclobenz aprine medicatio n Not available Not available Not available 09/17/2022 05262 RxNorm REVA Michelle [address] [facility] [place], [address], [place] [facility] 13:07:10 Medications Name Sig Start Date Stop Date Status Note LastModified by Organization Details LastModified Time cyclobenzap rine 10 mg tablet TAKE 1 TABLET BY MOUTH 3 TIMES A DAY 09/17 completed Not Available Not Available Not Available doxycycline hyclate 100 mg capsule TOME 1 C PSULA POR V A ORAL DOS VECES AL D A FOR 10 DAYS 09/17 completed Not Available Not Available Not Available propranolol 80 mg tablet TAKE 1 TABLET BY MOUTH TWICE A DAY active Not Available Not Available No t Available clindamycin HCl 300 mg capsule TAKE 1 CAPSULE BY MOUTH EVERY 8 HOURS FOR 7 DAYS 09/17 completed Not Available Not Available Not Available cefpodoxime 100 mg tablet TOME DAINA TABLETA DOS VECES AL D A CON LAS COMIDAS 09/17 completed Not Available Not Available Not Available ibuprofen 800 mg tablet TAKE 1 TABLET BY MOUTH EVERY 8 HOURS FOR 5 DAYS active Not Available Not Available No t Available Glucagon Emergency Kit 1 mg solution for injection USE DIRECTED FOR RECURRENT HYPOGLYCE BEN NEEDED BLOOD GLUCOSE active Not Available Not Available No t Available fluconazole 150 mg tablet TAKE 1 TABLET BY MOUTH ONCE 09/17 completed Not Available Not Available Not Available clindamycin HCl 150 mg capsule TAKE ONE CAPSULE BY MOUTH EVERY 6 HOURS FOR 7 DAYS 09/17 completed Not Available Not Available Not Available metronidazo le 500 mg tablet TOME DAINA TABLETA POR V A ORAL CADA DOCE HORAS FOR 14 DAYS 09/17 completed Not Available Not Available Not Available chlorthalid one 25 mg tablet TAKE 1 TABLET BY MOUTH EVERY DAY active Not Available Not Available No t Available ciprofloxac in 500 mg tablet TAKE 1 TABLET BY MOUTH EVERY DAY TWICE A DAY 09/17 completed Not Available Not Available Not Available tramadol 50 mg tablet TAKE 1 TABLET BY MOUTH EVERY 8 HOURS NEEDED FOR PAIN active Not Available Not Available No t Available famotidine 20 mg tablet TAKE 1 TABLET BY MOUTH TWICE A DAY FOR 10 DAYS 09/17 completed Not Available Not Available Not Available lorazepam 0.5 mg tablet TAKE 1 TABLET BY MOUTH ONCE A DAY NEEDED FOR PANIC ATTACKS active Not Available Not Available No t Available amlodipine 10 mg tablet TAKE 1 TABLET BY MOUTH EVERY DAY active Not Available Not Available No t Available omeprazole 20 mg capsule,del ayed release TAKE 1 CAPSULE BY MOUTH EVERY DAY active Not Available Not Available No t Available hydrocortis one 2.5 % topical cream APLIQUE AL ESCOBAR AFECTADA DOS VECES AL D A 09/17 completed Not Available Not Available Not Available hydroxyzine HCl 25 mg tablet TAKE 1 TABLET BY MOUTH 3 TIMES A DAY NEEDED FOR ANXIETY active Not Available Not Available No t Available ibuprofen 600 mg tablet TAKE 1 TABLET BY MOUTH EVERY 8 HOURS NEEDED FOR PAIN 09/17 completed Not Available Not Available Not Available levofloxaci n 750 mg tablet TOME DAINA TABLETA TODOS LOS D POR 7 D 09/17 completed Not Available Not Available Not Available methimazole 10 mg tablet TAKE 1 & 1/2 TABLETS DAILY active Not Available Not Available No t Available ondansetron 4 mg disintegrat ing tablet DISSOLVE 1 TABLET BY MOUTH EVERY 8 HOURS NEEDED FOR NAUSEA AND VOMITING active Not Available Not Available No t Available escitalopra m 10 mg tablet TAKE 1 TABLET BY MOUTH EVERY DAY IN THE MORNING active Not Available Not Available No t Available ciprofloxac in 0.3 %-dexametha sone 0.1 % ear drops,suspe nsion INSTILL 4 DROPS INTO THE EAR(S) 2 TIMES A DAY FOR 7 DAYS 09/17 completed Not Available Not Available Not Available FreeStyle [place] Lite kit PLEASE CHECK GLUCOSE LEVEL FOR HYPOGLYCE BEN 09/17 completed Not Available Not Available Not Available Vitals Date Recorded Heart rate Oxygen saturation Oxygen saturation in Arterial blood by Pulse oximetry Body temperature Respiratory rate Systolic blood pressure Diastolic blood pressure Provider Name and Address Organization Details Last Updated DateTime 3 62 /min 100 % 100 % 98.1 [degF] 16 /min 116 mm[Hg] 68 mm[Hg] Not Available [facility] 13:10:43 Social History Question Answer Notes LastModified by Organizat ion Details LastModified Time Tobacco Smoking Status Never Smoker REVA Tomas [address] [place] [address], [address], [place] [facility] 09/17/2022 12:55:47 What Is Your Level Of Alcohol Consumption? None Information not available 09/17/2022 Does This Patient Have A PCP? Yes [email or web address] Information not available 09/17/2022 Has The Patient Seen Their PCP In The Past 6 Months? Yes [email or web address] Information not available 09/17/2022 Do You Use Any Illicit Or Recreational Drugs? No Information not available 09/17/2022 Sex: Unknown Functional Status None recorded. Mental Status None recorded. Family History Relationship Description Onset Age of this Age Resolved Age Notes LastModified by Organization Details LastModified Time Father Type 2 diabetes mellitus [email or web address] Not available 2022 12:55:55 Mother Type 2 diabetes mellitus [email or web address] Not available 2022 12:56:00 Medical History Condition Response Diabetes N Coronary Artery Disease N CHF N Parkinson's Disease N Cancer N Stroke N Dementia N Asthma N Hypothyroidism N Depression Y COPD N High Cholesterol N Rheumatoid Arthritis N Pulmonary Embolism N Hypertension Y A-fib N Osteoporosis N Kidney Disease N Gynecological HistoryNo gynecological history recorded. Obstetrics History GPAL:G 0 P 0 0 0 0 Past Encounters Encounter ID Performer Location Encounter Start Date Encounter Closed Date Diagnosis/Indication Diagnosis SNOMED-CT Code Diagnosis ICD10 Code Diagnosis Note [id number] REVA Coy [facility] [address] [place] [address] 09/17/2022 12:41:07 09/17/2022 14:58:27 Left parotid gland swelling [id number] K11.9 Health Concerns Section Related Observation LastModified by Organization Detai ls LastModified Time None Recorded Concern Status LastModified by Organization Details LastModified Time None Recorded Advance Directives Directive None Recorded Payers Encounter Date Sequence Insurance Name Policy Number Policy Gaona Covered Member ID Gaona Member ID Guarantor Name 09/17/2022 1 [facility] (MEDICAID HMO) [id number] [facility] [id number] [facility] Notes Date Note Type Note Provider Name and Address Organization Details Recorded Time 09/17/2022 text/html 27 YO F new to D H and new to providerShe [facility] being [facility] today [facility], HTN, anxiety, anemia, gestational diabetesShradha is primarily nepalese speaking and she elects to use her friend via telephone to help translate instead of formal medical nepalese translation w/ our service.Of note she and her friend are poor historians and it is hard to tell if I am getting a full story or not.She reports that for a few months she has been battling a dental infection. She now has new onset of left parotid swelling since this morning. Originally she states it was 2 days ago but then after I call [facility] to review records w/ her permission her story changes to starting this morning as she did not have this complaint when she saw them yesterday. She reports it gets so bad it is very painful and has caused her eyes to hurt and get so swollen she cannot open them . She reports she has been in talks w/ her dentist about this. Last she spoke to them this past week they told her she was not allowed to follow up until her URI went away per patient. She reports she was given clindamycin by dentist back in July for similar issue but she didn't take it because she got the same medication from the hospital and she took that instead. SHe has now started taking her leftover clindamycin from July, despite me asking multiple times she has not told me how many doses. She currently wants to be checked out and told if she needs to go back to the hospital or not. Nothing makes her sxs better or worse. She denies any fever, chills, current visual changes, ocular pain, throat/tongue swelling, diff breathing, chest pain, numbness/tingling . No other reported sxs or concerns today. REVA Tomas [address] [place] [address] [place], [address], [place] [facility] 09/17/2022 14:18:02 OBGyn Episode No OBEpisode recorded.
== END 2024-10-02 12:23 | disposition home or self-care (01) ==
PROVIDERS: PCP Internal Medicine; Visit Provider Physician Assistant
DX: R42 Dizziness and giddiness (principal)

== ENCOUNTER → 2024-10-02 10:23 | Outpatient (BNVA) | payer OTHER, SELFPAY | PROVIDERS: PCP Internal Medicine; Visit Provider Physician Assistant | DX: R42 Dizziness and giddiness (principal) | CPT/HCPCS: 99212 ==

== ENCOUNTER 2024-10-03 12:45 | Outpatient (AMB) | payer OTHER, SELFPAY ==
[2024-10-03 12:51] VITALS: BP 110/72; PULSE 74; O2SAT 98; BMI 32.5
--- NOTE | 2024-10-03 12:51 | MHC.PC.OV ---
Vital Signs 10/03/24 12:51 Height 5 ft Weight 166 lb 6 oz BMI 32.5 BP 110/72 Blood Pressure Location Lt brachial Position Sitting Pulse 74 Pulse Source Pulse Oximeter Pulse Oximetry (%) 98 Oxygen Delivery Method Room Air Intake Visit Reasons: cold sweats, dizziness, weakness after bp meds Submarine Element Coordinator Required: Yes Submarine Element Coordinator Name: [id number] Accompanied by: Self / Same As Patient Allergies morphine Allergy (Severe, Verified 10/03/24 21:18) Vomiting amoxicillin Allergy (Mild, Verified 10/03/24 21:18) Rash clavulanic acid [From Augmentin] Allergy (Unknown, Verified 10/03/24 21:18) Unknown cyclobenzaprine [From Flexeril] Allergy (Verified 10/03/24 21:18) Palpitations escitalopram Allergy (Verified 10/03/24 21:18) Palpitations hydralazine Allergy (Verified 10/03/24 21:18) Nausea and Vomiting lorazepam [From Ativan] Allergy (Verified 10/03/24 21:18) Palpitations Medication List - Last Reconciled 10/03/24 by KALYAN Espinal amlodipine 10 mg PO DAILY 90 days aspirin 81 mg PO DAILY diphenhydramine HCl (Benadryl) 25 mg PO TID PRN 30 days magnesium oxide 400 mg PO BEDTIME 30 days miscellaneous medical supply (Blood Pressure Cuff) As directed propranolol 20 mg (2 x 10 mg) PO BID 90 days sennosides (Senna Lax) 8.6 mg PO BEDTIME PRN sertraline 25 mg PO DAILY 30 days Tobacco use date assessed: 10/03/24 Dental Screening Dental Screen Date: 10/03/24 Did you have a dental visit in the last 12 months?: No Did you have a dental problem in the last 6 months where you did not have access to dental care?: No Was dental information given to patient?: Patient has dentist HPI cold sweats, dizziness, weakness after bp meds HPI Details The patient is a 29-year-old female with significant past medical history Of migraine with aura, pituitary microadenoma, psychogenic nonepileptic seizure, hypothyroidism, anxiety, essential hypertension, heartburn, hyperglycemia, anemia The patient is presenting today for follow-up of cold sweats, dizziness, weakness and elevated blood pressure alternating with low blood pressure The patient when to the urgent care on 10/02/2024 with similar symptoms. She was concerned that her propranolol was causing these symptoms. Requesting for medication adjustment. The patient was directed towards consulting Endocrine to adjust her medications. Due to the concerns that her symptoms were being caused by her hyperthyroidism. The patient is presenting in office today with similar sentiments Patient reports that her blood pressures was 84/50 Her rechecked it within minute and it was 169/90 She gets SOB in the mornings when her blood pressure go up To the point of feeling like she can not swallow The patient has a picture of her toes with fink nail beds She reports that she used to take amlodipine 10 mg and sertraline 25 mg daily She has not been having these issues prior The patient reports that her Propylthiouracil was discontinued during She was placed on propranolol for a couple of months during her These issues started after giving She reports that her body feels weak and like she is out of control Reports that she has been region of to [facility] Where she has been managed but did not receive a call back She would like to know if she should be starting back her PTU --she is her child Will do blood work to check thyroid function and put in a urgent referral to endocrine I the meantime, the patient is encouraged to continue reaching out to endocrine [facility] Medical History Pituitary microadenoma Psychogenic nonepileptic seizure Hyperthyroidism Essential hypertension Breast pain, left Overweight (BMI 25.0-29.9) Heavy menses Chronic constipation GERD without esophagitis Anemia HTN (hypertension) Anxiety Surgical History H/O tooth extraction (~12/10/22) H/O: Family History Paternal Aunt Breast cancer, Onset Age: 35 Maternal Aunt Breast cancer, Onset Age: 40 Other Diabetes High cholesterol Hypertension Social History Housing: House Alcohol intake: never Patient Tobacco Use Status: Never used Tobacco e-Cigarette/Vaping Use: Never Used Second Hand Smoke Exposure: No service: No Current occupational status: unemployed Cognitive needs: No Hearing needs: No Vision needs: No Questionnaire PHQ-9 Over the last 2 weeks, how often have you been bothered by any of the following problems? 1. Little interest or pleasure in doing things: not at all 2. Feeling down, depressed, or hopeless: not at all 3. Trouble falling or staying asleep, or sleeping too much: not at all 4. Feeling tired or having little energy: not at all 5. Poor appetite or overeating: not at all 6. Feeling bad about yourself - or that you are a failure or have let yourself or your family down: not at all 7. Trouble concentrating on things, such as reading the newspaper or watching television: not at all 8. Moving or speaking so slowly that other people could have noticed. Or the opposite - being so fidgety or restless that you have been moving around a lot more than usual: not at all 9. Thoughts that you would be better off or of hurting yourself in some way: not at all Total score: 0 Depression Screening Interpretation: Negative Depression Screening Done: Yes 27190 - PHQ-9 Billing: Yes Source: Developed by Drs. Fabio Johnson, Trinity Anand, Neymar Peterson and colleagues, with an educational sherley from [employer]. Thrive Questionnaire Date Thrive assessed: 10/03/24 I am a: Patient What is your living situation today?: I have a steady place to live Within the past 12 months, did the food you bought not last and you didn't have the money to get more?: Never true Within the past 12 months, did you worry whether your food would run out before you got money to buy more?: Never true Do you have trouble paying for medicines?: No Do you have trouble getting transportation to medical appointments?: No Do you have trouble paying your heating and electricity bill?: No Do you have trouble taking care of your child, family member or friend?: No Do you have trouble with day-to-day activities such as bathing, preparing meals, shopping, managing finances, etc.?: No Are you currently unemployed and looking for a job?: No Are you interested in more education?: No Please select the resources that you would like help with: None Currently or been in a relationship where the following occur: No concerns reported THRIVE Score: 0 AUDIT C Alcohol Use Questionnaire (AUDIT-C) 1. How often do you have a drink containing alcohol?: Never Total Score: 0 Score Reviewed/Action Taken: Yes YULIYA-7 AMB Questionnaire YULIYA-7 Date YULIYA - 7 assessed: 10/03/24 Feeling nervous, anxious, or on edge: 0 = Not at all Not being able to stop or control worryin = Not at all Worrying too much about different things: 0 = Not at all Trouble relaxin = Not at all Being so restless that it is hard to sit still: 0 = Not at all Becoming easily annoyed or irritable: 0 = Not at all Feeling afraid as if something awful might happen: 0 = Not at all Total YULIYA-7 score (0-4 normal; 5-9 mild; 10-14 moderate; 15-21 severe): 0 Source: Developed by Drs. Fabio Johnson, Trinity Anand, Neymar Peterson and colleagues, with an educational sherley from [employer]. YULIYA-7 Assessment Billing YULIYA-7 Assessment Tool: YULIYA-7 Assessment 69741 Review of Systems Const Details: Denies chills, + recurrent fatigue, Denies fever(s), +recurrent headache(s) and +recurrent weakness HEENT Denies change in vision, Denies dizziness, Denies headache(s), Denies hearing loss, Denies nasal congestion, Denies sinus pain, Denies sinus pressure and Denies sore throat Card Denies chest pain, Denies lightheadedness, reports occasional dyspnea and reports recurrent (palpitations) Resp Denies cough, reports occasional dyspnea and Denies wheezing GI Denies abdominal pain, Denies melena, Denies hematochezia, Denies change in bowel habits, Denies dyspepsia and Denies nausea Denies hematuria and Denies dysuria Musc Denies abnormal gait, Denies myalgias, Denies arthralgias, Denies numbness and Denies tingling Skin/Breast Denies rash, Denies unusual bruising and Denies wounds Neuro Denies abnormal gait, Denies dizziness, Denies headache(s), Denies memory loss, Denies numbness, Denies Sensory deficit (Neuro), Denies tingling and Denies weakness Psych Denies anxiety, Denies depression and Denies memory loss Endo reports cold intolerance, reports fatigue, reports heat intolerance, Denies polydipsia and Denies polyuria Vinayak/Lymph Denies easy bleeding and Denies easy bruising Aller/Immun Denies wheezing Physical exam (Primary Care) Vital Signs: Last Vital Signs Pulse 74 10/03/24 12:51 BP 110/72 10/03/24 12:51 Pulse Ox 98 10/03/24 12:51 Oxygen Delivery Method Room Air 10/03/24 12:51 BMI result Body Mass Index 32.5 Tobacco/Smoking Status: Tobacco use Status Tobacco use date assessed 10/03/24 10/03/24 12:59 Patient Tobacco Use Status Never used Tobacco 10/03/24 12:59 e-Cigarette/Vaping Use Never Used 10/03/24 12:59 PHQ-9: PHQ-9 Score PHQ-9: Total score 0 10/03/24 21:23 Depression Screening Interpretation: Negative Thrive Assessment: Date of Thrive Assessment Date Thrive assessed 10/03/24 10/03/24 12:59 Currently or been in a relationship where the following occur: No concerns reported Const Other: General: no acute distress, well developed, alert and awake Nutritional Appearance: well nourished Orientation/consciousness: patient oriented x3 HENMT Head: Yes normocephalic and Yes atraumatic Ears: hearing grossly normal bilaterally and TM's normal bilaterally General nose exam: Normal external nose present and Normal nares present Mouth: Normal oral and palatal mucosa present and moist mucous membranes Teeth and gingiva: dentition normal Throat: Yes oropharynx normal Eyes Pupils: Equal, round and reactive pupils present and Pupil accommodation reflex normal EOM: EOMs intact bilaterally Neck Neck: Yes normal visual inspection, Yes no lymphadenopathy and Yes trachea midline Thyroid: Thyroid normal Lymphatic: no lymphadenopathy noted Chest Chest palpation & inspection: normal inspection of the chest Resp Effort & Inspection: normal respiratory effort Auscultation: clear to auscultation bilaterally Cardio Rate: regular rate Rhythm: regular rhythm Heart sounds: S1 normal heart sound present, S2 normal heart sound present, no gallops, no murmurs and no rubs GI Palpation (GI): Abdomen is soft and nontender to palpation Auscultation: normal bowel sounds General: Yes no CVA tenderness Back/Spine/Pelvis Back: no CVA tendernesss Skin General: warm and dry. Normal skin color. Normal skin turgor Lesions: no lesions Nails: normal Neuro General: patient oriented x3, gait normal and CN's II-XI intact bilaterally Cranial nerves: Yes Equal, round and reactive pupils present Cognition (Neuro): normal cognition Gait exam (Neuro): Normal gait present Motor exam (neuro): 5/5 motor strength present throughout Sensory Exam: No Sensory deficit (Neuro) Deep tendon reflexes (DTR's): Right patellar reflex intensity grade: 2+ and Left patellar reflex intensity grade: 2+ Extrem General: Yes normal to inspection, No edema and No calf tenderness Psych Appearance: grossly normal Affect: normal affect Attitude: cooperative Thought process: Normal thought process present Coding Level of Care Code Est Pt Level 4 (80416) Diagnoses Hyperthyroidism E05.90 Essential hypertension I10 GERD without esophagitis K21.9 Migraine with aura and without status migrainosus, not intractable G43.109 Status migrainosus presence: without status migrainosus Intractability: not intractable Dizziness R42 Idiopathic hypotension I95.0 Hypotension type: idiopathic hypotension Additional Codes PHQ-9 - 42851 - PHQ-9 Billing: Yes ([id number]) YULIYA-7 Assessment Billing - YULIYA-7 Assessment Tool: YULIYA-7 Assessment 10788 ([id number]) Time Spent (min) 37 Assessment & Plan Assessment & Plan (1) Hyperthyroidism: Code(s): E05.90 - Thyrotoxicosis, unspecified without thyrotoxic crisis or storm Category: Medical Plan: The patients that her PTU was stopped during . She was started on propranolol for preclampsia. The patient has been ups and downs of fluctuation of symptoms. She is in need of endocrine input urgent referral made and blood work was ordered to assist with evaluation. (2) Essential hypertension: Code(s): I10 - Essential (primary) hypertension Category: Medical Plan: The patient reports fluctuating blood pressure. Her blood pressure is sometimes elevated and low at other times These fluctuations happen in minutes. Discussed with patient that her presentation seems to be hormonal and less likely to be the caused of her blood pressure medication. Continue amlodpine 10 mg daily, propranolol 20 mg BID reinforced low sodium diet (3) GERD without esophagitis: Code(s): K21.9 - Gastro-esophageal reflux disease without esophagitis Category: Medical Plan: The patient reports at times feeling like she cannot swallow. This presentation is unclear if it is anxiety related or triggered by her GERD. Reinforced dietary restrictions Avoid eating close to bedtime. Allow yourself 3-4 hours after eating to lay down (4) Migraine with aura: Code(s): G43.109 - Migraine with aura, not intractable, without status migrainosus Category: Medical Qualifiers: Status migrainosus presence: without status migrainosus Intractability: not intractable Qualified Code(s): G43.109 - Migraine with aura, not intractable, without status migrainosus Plan: The patient is c/o headaches. She has an hx of migraines. This is unclear if the fluctuation in her blood pressures are causing or enhancing her headaches. Encouraged the patient to avoid triggers Continue magnesium oxide 400mg at bedtime Increased fluid intake (5) Dizziness: Code(s): R42 - Dizziness and giddiness Category: Medical Plan: The patient denies falling. Reports that the symptom comes on randomly and goes away quickly. Labs ordered. Concerns that her symptoms might be hormonal related. Encouraged to rise slowly when sitting or laying down Urgent referral to endocrine made. The patient to continue reaching out to [facility] for med clarification. The patient reports that she used to see [facility] and she was sent to [facility] by her doctor while she was . She would like to be seen by [facility]. (6) Low blood pressure: Code(s): I95.9 - Hypotension, unspecified Category: Medical Qualifiers: Hypotension type: idiopathic hypotension Qualified Code(s): I95.0 - Idiopathic hypotension Plan: Reports come on randomly. Then blood pressure would be high within few minutes. She is concern that this might have been caused by her Propranolol. Discussed with patient that if it was the propranolol, her blood pressure would not rises back that quickly. Encouraged hydration. Take extra steps to prevent falls like rising slowly. Plan The patient to get labs done maite. Should follow in 1 wk. Orders: Orders Triiodothyronine T3 Reverse Today F44.5 - Conversion disorder with seizures or convulsions, R51.9 - Headache, unspecified, R73.01 - Impaired fasting glucose, R79.89 - Other specified abnormal findings of blood chemistry TSH reflex Free T4 Today F44.5 - Conversion disorder with seizures or convulsions, R51.9 - Headache, unspecified, R73.01 - Impaired fasting glucose, R79.89 - Other specified abnormal findings of blood chemistry Glucose Fasting Today F44.5 - Conversion disorder with seizures or convulsions, R51.9 - Headache, unspecified, R73.01 - Impaired fasting glucose, R79.89 - Other specified abnormal findings of blood chemistry UA CC w/rflx Micro + Cult Today F44.5 - Conversion disorder with seizures or convulsions, R51.9 - Headache, unspecified, R73.01 - Impaired fasting glucose, R79.89 - Other specified abnormal findings of blood chemistry Complete Blood Count Auto Diff Today F44.5 - Conversion disorder with seizures or convulsions, R51.9 - Headache, unspecified, R73.01 - Impaired fasting glucose, R79.89 - Other specified abnormal findings of blood chemistry Comprehensive [place]. Panel Fast Today F44.5 - Conversion disorder with seizures or convulsions, R51.9 - Headache, unspecified, R73.01 - Impaired fasting glucose, R79.89 - Other specified abnormal findings of blood chemistry Triiodothyronine T3 Total Today F44.5 - Conversion disorder with seizures or convulsions, R51.9 - Headache, unspecified, R73.01 - Impaired fasting glucose, R79.89 - Other specified abnormal findings of blood chemistry Triiodothyronine T3 Free Today F44.5 - Conversion disorder with seizures or convulsions, R51.9 - Headache, unspecified, R73.01 - Impaired fasting glucose, R79.89 - Other specified abnormal findings of blood chemistry Free T4 (Free Thyroxine) Today F44.5 - Conversion disorder with seizures or convulsions, R51.9 - Headache, unspecified, R73.01 - Impaired fasting glucose, R79.89 - Other specified abnormal findings of blood chemistry Vitamin D 25-OH Total Today F44.5 - Conversion disorder with seizures or convulsions, R51.9 - Headache, unspecified, R73.01 - Impaired fasting glucose, R79.89 - Other specified abnormal findings of blood chemistry Referrals Endocrinology Referral E05.90 - Thyrotoxicosis, unspecified without thyrotoxic crisis or storm
--- OUTSIDE RECORDS SUMMARY | 2024-10-03 15:04 | XMS_ITS | Data Portability ---
Author Organization [place] [facility] [place] [address] Care Team Providers Care Clearing Supervisor Name Role Phone [facility] Primary Care Provider Assessment Encounter Date Assessment Date Assessment LastModified by Organization Details LastModified Time 09/17/2022 09/17/2022 Overview/History : 27 YO F new to DH and new to provider She is being seen today at home Has PMH of depression, HTN, anxiety, anemia, gestational diabetes She is primarily eritrean speaking and she elects to use her friend via telephone to help translate instead of formal medical eritrean translation w/ our service. Of note she [...] days ago but then after I call [facility] to review records w/ her permission her [...] present, apparently new, discussed w/ member of [facility] who reports this is new [...] visit -She reports she was [place] [facility] [place] for this issue -She gives me permission to [place] [facility] [place], I speak with staff Pharmacist Yadira Grace who reports that she has been seen numerous times between Jul, Aug and even yesterday. She has never been seen for a dental issue or facial swelling however. No mention of facial swelling in her chart from yesterday. She was educated at that time to f/u [facility] PCP for URI sxs. -Today now w/ [...] Review completed RE[facility] Tomas [address], [place], [address], [place] [facility] 09/17/2022 14:01:37 section completed REVA Tomas [address], [place], [address], [place] [facility] 09/17/2022 12:55:35 Imaging Results None recorded. Procedure Notes None recorded. Medical Equipment None Reported. Allergies Allergen ID Allergen Name Allergen Category Reaction Reaction Severity Criticality Documentation Date Start Date Code Code System Note Provider Name and Address Organization Details Recorded Time [id number] Augmentin medicatio n Not available Not available Not available 09/17/2022 71524 2 RxNorm REVA Michelle [address], [place], [address], [place] [facility] 12:48:53 [id number] nifedipin e medicatio n Not available Not available Not available 09/17/2022 7417 RxNorm REVA Michelle [address], [place], [address], [place] [facility] 3 12:48:58 106029 Mucinex medicatio n Not available Not available Not available 09/17/2022 82092 7 RxNorm REVA Michelle [address], [place], [address], [place] [facility] 13:06:54 [id number] cyclobenz aprine medicatio n Not available Not available Not available 09/17/2022 40668 RxNorm REVA Michelle [address] [place], [address], [place] [facility] 13:07:10 [...] one 2.5 % topical cream APLIQUE AL ESOCBAR AFECTADA DOS VECES AL D A 09/17 [...] Not Available Not Available Not Available FreeStyle [place] Lite kit PLEASE CHECK GLUCOSE LEVEL FOR [...] /min 116 mm[Hg] 68 mm[Hg] Not Available [facility] 13:10:43 Social History Question Answer Notes LastModified by Organizat ion Details LastModified Time Tobacco Smoking Status Never Smoker RE[facility] Tomas [address] [place], [place] [address], [address], [place] [facility] 09/17/2022 12:55:47 What Is [...] SNOMED-CT Code Diagnosis ICD10 Code Diagnosis Note [id number] REVA Coy [facility] [address] [place] [address] 09/17/2022 12:41:07 09/17/2022 14:58:27 Left parotid gland swelling [id number] K11.9 Health Concerns Section Related Observation LastModified by Organization Detai ls LastModified Time None Recorded Concern Status LastModified by Organization Details LastModified Time None Recorded Advance Directives Directive None Recorded Payers Encounter Date Sequence Insurance Name Policy Number Policy Gaona Covered Member ID Gaona Member ID Guarantor Name 09/17/2022 1 [facility] (MEDICAID HMO) [id number] [facility] [id number] [facility] Notes Date Note Type Note Provider Name and Address Organization Details Recorded Time 09/17/2022 text/html 27 YO F new to D H and new to providerShe is being [facility] of depression, HTN, anxiety, anemia, gestational diabetesShradha is primarily eritrean speaking and she elects to use her friend via telephone to help translate instead of formal medical eritrean translation w/ our service.Of note she and [...] days ago but then after I call [facility] to review records w/ her permission her [...] reported sxs or concerns today. REVA Tomas [address] [place] [address] [place], [address], [place] [facility] 09/17/2022 14:18:02 OBGyn Episode No OBEpisode recorded.
== END 2024-10-03 13:40 | disposition home or self-care (01) ==
PROVIDERS: PCP Internal Medicine
DX: E05.90 Thyrotoxicosis, unspecified without thyrotoxic crisis or storm (principal); I10 Essential (primary) hypertension; K21.9 Gastro-esophageal reflux disease without esophagitis; G43.109 Migraine with aura, not intractable, without status migrainosus; R42 Dizziness and giddiness; I95.0 Idiopathic hypotension

== ENCOUNTER → 2024-10-03 12:45 | Outpatient (BNVA) | payer OTHER, SELFPAY | PROVIDERS: PCP Internal Medicine | DX: E05.90 Thyrotoxicosis, unspecified without thyrotoxic crisis or storm (principal); I10 Essential (primary) hypertension; K21.9 Gastro-esophageal reflux disease without esophagitis; G43.109 Migraine with aura, not intractable, without status migrainosus; R42 Dizziness and giddiness; I95.0 Idiopathic hypotension | CPT/HCPCS: 96127; 99212 ==

== ENCOUNTER 2024-10-04 07:26 | Outpatient (REF) | payer OTHER, SELFPAY ==
--- OUTSIDE RECORDS SUMMARY | 2024-10-04 07:29 | XMS_ITS | Clinical Summary ---
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
[2024-10-04 07:44] LABS: MANUAL DIFF FLAG NO
[2024-10-04 08:22] LABS: Basophils Absolute Auto 0.1 X10*3/uL (0.0-0.2); Basophils Percent Auto 0.8 % (0-2); Eosinophils Absolute Auto 0.3 X10*3/uL (0.0-0.4); Eosinophils Percent Auto 3.2 % (0-4); Hematocrit 40.3 % (37.0-47.0); Hemoglobin 12.8 g/dl (12.0-16.0); Imm Gran Abs Auto 0.04 X10*3/uL (0.00-0.03); Imm Gran Pct Auto 0.5 % (0.0-0.4); Lymphocytes Absolute Auto 1.9 X10*3/uL (1.2-4.9); Lymphocytes Percent Auto 24.8 % (20-40); Mean Corpuscular HGB Conc 31.8 g/dl (31.0-35.0); Mean Corpuscular Hemoglobin 24.8 pg (27.0-33.0); Mean Corpuscular Volume 77.9 fL (80.0-98.0); Mean Platelet Volume 10.5 fL (9.4-12.3); Monocytes Absolute Auto 0.6 X10*3/uL (0.1-1.2); Monocytes Percent Auto 7.1 % (2-11); Neutrophils Absolute Auto 4.9 x10*3/uL (2.0-8.3); Neutrophils Percent Auto 63.6 % (45-73); Platelet Count 296 X10*3/uL (160-400); Red Blood Count 5.17 X10*6/uL (4.20-5.50); Red Cell Distribution Width 15.1 % (11.0-16.0); White Blood Count 7.7 X10*3/uL (4.8-10.8)
[2024-10-04 08:52] LABS: Alanine Aminotransferase 39 U/L (0-31); Albumin Level 4.5 g/dL (3.5-5.0); Anion Gap 13 (12-20); Aspartate Amino Transferase 31 U/L (5-31); Bilirubin Total 0.4 mg/dL (0.0-1.0); Blood Urea Nitrogen 7 mg/dL (9-16); Calcium 9.6 mg/dL (8.4-10.2); Carbon Dioxide 24 mmol/L (22-29); Chloride 106 mmol/L (96-108); Estimated Glomerular Filt Rate > 60; Glucose Fasting 87 mg/dL (60-99); Sodium 139 mmol/L (135-145); Total Protein 8.3 g/dL (6.5-8.0)
[2024-10-04 09:17] LABS: Free T4 (Free Thyroxine) 0.86 ng/dL (0.71-1.85)
[2024-10-04 14:20] LABS: Alkaline Phosphatase 88 U/L (39-117)
[2024-10-05 10:38] LABS: Triiodothyronine T3 Total 112 ng/dL (76-181)
[2024-10-09 14:18] LABS: Triiodothyronine T3 Reverse 15 ng/dL (8-25)
== END 2024-10-04 07:27 | disposition home or self-care (01) ==
LOC: HO.LAB 07:26
PROVIDERS: PCP Internal Medicine
DX: R51.9 Headache, unspecified (principal); R79.89 Other specified abnormal findings of blood chemistry; F44.5 Conversion disorder with seizures or convulsions; R73.01 Impaired fasting glucose
CPT/HCPCS: 36415; 80053; 82306; 84439; 84443; 84480; 84481; 84482; 85025

== ENCOUNTER 2024-10-14 10:31 | Outpatient (AMB) | payer OTHER, SELFPAY ==
[2024-10-14 11:01] VITALS: BP 110/62; PULSE 77; O2SAT 98; BMI 31.0
--- NOTE | 2024-10-14 11:01 | A.OFFPC_ITS ---
Vital Signs 10/14/24 11:01 Height 5 ft Weight 159 lb BMI 31.0 BP 110/62 Blood Pressure Location Lt brachial Position Sitting Pulse 77 Pulse Source Pulse Oximeter Pulse Oximetry (%) 98 Oxygen Delivery Method Room Air Intake Visit Reasons: [facility] 10/12 Maintenance Technician Required: Yes Maintenance Technician Language: Burmese Allergies morphine Allergy (Severe, Verified 10/20/24 04:01) Vomiting amoxicillin Allergy (Mild, Verified 10/20/24 04:01) Rash clavulanic acid [From Augmentin] Allergy (Unknown, Verified 10/20/24 04:01) Unknown cyclobenzaprine [From Flexeril] Allergy (Verified 10/20/24 04:01) Palpitations escitalopram Allergy (Verified 10/20/24 04:01) Palpitations hydralazine Allergy (Verified 10/20/24 04:01) Nausea and Vomiting lorazepam [From Ativan] Allergy (Verified 10/20/24 04:01) Palpitations Medication List - Last Reconciled 10/14/24 by KALYAN Espinal amlodipine 10 mg PO DAILY 90 days aspirin 81 mg PO DAILY diphenhydramine HCl (Benadryl) 25 mg PO TID PRN 30 days magnesium oxide 400 mg PO BEDTIME 30 days miscellaneous medical supply (Blood Pressure Cuff) As directed propranolol 20 mg (2 x 10 mg) PO BID 90 days sennosides (Senna Lax) 8.6 mg PO BEDTIME PRN sertraline 25 mg PO DAILY 30 days Tobacco use date assessed: 10/14/24 Dental Screening Dental Screen Date: 10/14/24 Did you have a dental visit in the last 12 months?: Yes Did you have a dental problem in the last 6 months where you did not have access to dental care?: No Was dental information given to patient?: Patient has dentist HPI [facility] 10/12 HPI Details The patient is a 29 y/o female hyperthyroidism, anxiety, essential hypertension, heartburn, multiple episodes of hypoglycemia, chronic constipation, frequent headaches, psychogenic nonepileptic seizure Patient to have Dr. Gutierrez, last seen in office on 10/03/24 for for episodes of cold sweats, dizziness, weakness and elevated blood pressure alternating with low blood pressure The patient at multiple hospital visits for seizure-like activity/syncope/presyncope episodes. The patient was admitted from 10/07/2024 to 10/08/2024 for syncopal episode, chest pain-EKG negative in labs within normal limits Multiple imaging including CT scan of the head,MRA,MRI of the brain,MR venogram- all has been documented as normal In the past the patient had PNES captured on VEEG 10/2023; frothing at the mouth and shaking of arms More recently when the patient was admitted in September she had nonepileptic sei zures captured on VEEG Neurology evaluated the patient at [facility] in suspect that the patient was having psychogenic nonepileptic seizures Neurology recommended to have Psychiatry evaluation, but per documentation, the patient opted to see psychiatry in outpatient In office: Patient is Burmese-speaking she is accompanied by her and baby. An theatrical scenic designer used via tablet device. The patient is reporting multiple hospital visits with similar symptoms. Patient reports passing out at home and at muslim in the bathroom. The patient reports multiple hospital visits via ambulance after passing out. She reports that when she takes her medications she gets tachycardic and her body gets cold Reports that she was prescribed propranolol in the ED for tachycardia. she is currently on 20 mg of propranolol b.i.d. The patient is asking if her propranolol could be decreased because she thinks the dose is too strong for her because sometimes her blood pressure drops into the 60s after taking this medication The patient reports that they keep telling her that all the tests completed in the hospital are negative They also told her that she is having pseudoseizures-she would like to follow up with Neurology outpatient She reported that on Monday, she had 5 or 6 seizures in a row and passed out and was kept in the hospital for observation The patient also would like a cardiac workup due to all syncopal episodes The patient reports that on Monday she went to muslim and she was fine until she took her medications that resulted with her passing out in the bathroom and had to be rushed to the emergency room The patient is requested assistance of a SENIOR COMMUNICATIONS ENGINEER. She is constantly seizing and falling on the floor, multiple trips to the ED The patient's has been stepping in and caring for the kids however he is unable to be at home all the time The patient is an high fall risk; this put her and her 8 month old baby at risk. If the patient was to fall while holding the baby at home by herself the result could be detrimental The patient has a neurology appt on 11/14/2024 Will refer her to cardiology for evaluation Will refer to her to psychiatry to get her anxiety/panic attacks under control- for now I will increased her sertraline to 75mg daily and decreased her propranolol to 15 mg BID due to intermittently complaints of dizziness. [facility] Medical History Pituitary microadenoma Psychogenic nonepileptic seizure Hyperthyroidism Essential hypertension Breast pain, left Overweight (BMI 25.0-29.9) Heavy menses Chronic constipation GERD without esophagitis Anemia HTN (hypertension) Anxiety Surgical History H/O tooth extraction (~12/10/22) H/O: Family History Paternal Aunt Breast cancer, Onset Age: 35 Maternal Aunt Breast cancer, Onset Age: 40 Other Diabetes High cholesterol Hypertension Social History Housing: House Alcohol intake: never Patient Tobacco Use Status: Never used Tobacco Tobacco use type: Cigarette e-Cigarette/Vaping Use: Never Used Second Hand Smoke Exposure: No Advance Directives: No Advance Directives Information Provided: Yes Do you have a plan to hurt others: No Plan service: No Current occupational status: unemployed Cognitive needs: No Hearing needs: No Vision needs: No Questionnaire PHQ-9 Over the last 2 weeks, how often have you been bothered by any of the following problems? 1. Little interest or pleasure in doing things: not at all 2. Feeling down, depressed, or hopeless: not at all 3. Trouble falling or staying asleep, or sleeping too much: not at all 4. Feeling tired or having little energy: not at all 5. Poor appetite or overeating: not at all 6. Feeling bad about yourself - or that you are a failure or have let yourself or your family down: not at all 7. Trouble concentrating on things, such as reading the newspaper or watching television: not at all 8. Moving or speaking so slowly that other people could have noticed. Or the opposite - being so fidgety or restless that you have been moving around a lot more than usual: not at all 9. Thoughts that you would be better off or of hurting yourself in some way: not at all Total score: 0 Depression Screening Interpretation: Negative Depression Screening Done: Yes 80284 - PHQ-9 Billing: Yes Source: Developed by Drs. Fabio Johnson, Trinity Anand, Neymar Peterson and colleagues, with an educational sherley from [employer]. Thrive Questionnaire Date Thrive assessed: 10/03/24 YULIYA-7 AMB Questionnaire YULIYA-7 Date YULIYA - 7 assessed: 10/03/24 Source: Developed by Drs. Fabio Johnson, Trinity Anand, Neymar Peterson and colleagues, with an educational sherley from [employer]. Review of Systems Const Details: Denies chills, Denies fatigue, Denies fever(s), Denies headache(s) and Denies weakness HEENT Denies change in vision, reports intermittent dizziness, Denies headache(s), Denies hearing loss, Denies nasal congestion, Denies sinus pain, Denies sinus pressure and Denies sore throat Card reports intermittent chest pain, Denies lightheadedness, Denies dyspnea and Denies other (palpitations) Resp Denies cough, Denies dyspnea and Denies wheezing GI Denies abdominal pain, Denies melena, Denies hematochezia, Denies change in bowel habits, Denies dyspepsia and Denies nausea Denies hematuria and Denies dysuria Musc Denies abnormal gait, Denies myalgias, Denies arthralgias, Denies numbness and Denies tingling Skin/Breast Denies rash, Denies unusual bruising and Denies wounds Neuro Denies abnormal gait, Denies dizziness, Denies headache(s), Denies memory loss, Denies numbness, Denies Sensory deficit (Neuro), Denies tingling and Denies weakness Psych reports anxiety/panic attacks, Denies depression and Denies memory loss Endo Denies cold intolerance, Denies fatigue, Denies heat intolerance, Denies polydipsia and Denies polyuria Vinayak/Lymph Denies easy bleeding and Denies easy bruising Aller/Immun Denies wheezing Physical exam (Primary Care) Vital Signs: Last Vital Signs Pulse 77 10/14/24 11:01 BP 110/62 10/14/24 11:01 Pulse Ox 98 10/14/24 11:01 Oxygen Delivery Method Room Air 10/14/24 11:01 BMI result Body Mass Index 31.0 Tobacco/Smoking Status: Tobacco use Status Tobacco use date assessed 10/14/24 10/14/24 11:06 Patient Tobacco Use Status Never used Tobacco 10/14/24 11:06 Tobacco use type Cigarette 10/14/24 11:06 e-Cigarette/Vaping Use Never Used 10/14/24 11:06 PHQ-9: PHQ-9 Score PHQ-9: Total score 0 10/14/24 20:18 Depression Screening Interpretation: Negative Thrive Assessment: Date of Thrive Assessment Date Thrive assessed 10/03/24 10/14/24 11:06 Const Other: General: no acute distress, well developed, alert and awake Nutritional Appearance: well nourished Orientation/consciousness: patient oriented x3 HENMT Head: Yes normocephalic and Yes atraumatic Ears: hearing grossly normal bilaterally and TM's normal bilaterally General nose exam: Normal external nose present and Normal nares present Mouth: Normal oral and palatal mucosa present and moist mucous membranes Eyes Pupils: Equal, round and reactive pupils present and Pupil accommodation reflex normal EOM: EOMs intact bilaterally Neck Neck: Yes normal visual inspection, Yes no lymphadenopathy and Yes trachea midline Thyroid: Thyroid normal Lymphatic: no lymphadenopathy noted Chest Chest palpation & inspection: normal inspection of the chest Resp Effort & Inspection: normal respiratory effort Auscultation: clear to auscultation bilaterally Cardio Rate: regular rate Rhythm: regular rhythm Heart sounds: S1 normal heart sound present, S2 normal heart sound present, no gallops, no murmurs and no rubs Bruits: no abdominal aortic bruits and no carotid bruits GI Palpation (GI): Abdominal soft and nontender to palpation Auscultation: normal bowel sounds General: Yes no CVA tenderness Back/Spine/Pelvis Back: no CVA tenderness Cervical Spine: cervical ROM normal and No Cervical spine tenderness Thoracic/Lumbar Spine: No lumbar tenderness Skin General: warm and dry. Normal skin color. Normal skin turgor Lesions: no lesions Nails: normal Neuro General: patient oriented x3, gait normal Cranial nerves: Yes Equal, round and reactive pupils present Cognition (Neuro): normal cognition Gait exam (Neuro): Normal gait present Extrem General: Yes normal to inspection, No edema and No calf tenderness Psych Appearance: grossly normal Affect: normal affect Attitude: cooperative Thought process: Normal thought process present Coding Level of Care Code Est Pt Level 4 (05756) Diagnoses Syncope, unspecified syncope type R55 Syncope type: unspecified Panic attacks F41.0 Psychogenic nonepileptic seizure F44.5 Primary hypertension I10 Hypertension type: unspecified Anxiety F41.9 Additional Codes PHQ-9 - 02512 - PHQ-9 Billing: Yes ([id number]) Time Spent (min) 47 Assessment & Plan Assessment & Plan (1) Syncopal episodes: Code(s): R55 - Syncope and collapse Category: Medical Qualifiers: Syncope type: unspecified Qualified Code(s): R55 - Syncope and collapse Plan: Multiple episodes of syncopal episodes leading to hospital visits The patient workups has been nonrevealing so far. There is suspicion of psychogenic nonepileptic seizures Video EEG was done in the hospital while the patient was having seizure-like activities and frothing at the mouth but no seizure activities was seen on EEG The patient is requesting cardiac workup for further evaluation. Cardiac referral placed syncopal episodes (2) Panic attacks: Code(s): F41.0 - Panic disorder [episodic paroxysmal anxiety] Category: Medical Plan: Neurology at [facility] recommended psychiatry evaluation but the patient opted to have this done in the outpatient setting-per hospital note Patient reports a history of panic attacks. She is currently on sertraline 50 mg daily Sertraline increased to 75 mg daily and the patient will referral to Psychiatry (3) 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 - Conversion disorder with seizures or convulsions Category: Medical Plan: Multiple seizure-like activities and syncopal episodes prompting multiple ER visits HEAD CT/MRI/MRA MR VENOGRAM AND VIDEO EEG-the all has been unrevealing It was suspected that the patient is having psychogenic nonepileptic seizures The patient has a neurology appointment on 11/14/2024 for further evaluation (4) HTN (hypertension): Code(s): I10 - Essential (primary) hypertension Category: Medical Qualifiers: Hypertension type: unspecified Qualified Code(s): I10 - Essential (primary) hypertension Plan: The patient reports fluctuating blood pressures. Reports that she was started on propranolol 20 mg b.i.d. the hospital for tachycardia and elevated BP She is requesting for propranolol to be decreased due to reported on and off dizziness and intermittent low blood pressures Propranolol decrease to 15 mg b.i.d. the patient was also referred to Cardiology for syncopal episodes (5) Anxiety: Code(s): F41.9 - Anxiety disorder, unspecified Category: Medical Plan: Sertraline increased to 75 mg daily The patient was referred to Psychiatry Denies SI/HI Plan Follow up in 2 months Orders: Referrals Cardiology Referral R55 - Syncope and collapse Psychiatry Referral F44.5 - Conversion disorder with seizures or convulsions, F41.9 - Anxiety disorder, unspecified, F41.0 - Panic disorder [episodic paroxysmal anxiety] Medications: New sertraline 75 mg (1.5 x 50 mg) PO DAILY 45 tabs 2RF 30 days Changed From propranolol 20 mg (2 x 10 mg) PO BID 90 days 360 tabs 0RF To propranolol 15 mg (1.5 x 10 mg) PO BID 270 tabs 0RF 90 days Refilled amlodipine 10 mg PO DAILY 90 tabs 0RF 90 days
--- OUTSIDE RECORDS SUMMARY | 2024-10-14 11:20 | XMS_ITS | Clinical Summary ---
Author Organization [facility] ity Address [address] [place] [address] Care Team Providers Care Casing Wringer Operator Name Role Phone Jeffy Gutierrez MD Primary [...] Documents on File Type Date Recorded Patient Plasticator Expl anation Health Care Decision (hx) 08/30/2023 HE ALTH CARE PROXY Health Care Decision (hx) 08/30/2023 HE ALTH CARE PROXY Health Care Decision (hx) 08/30/2023 HE ALTH CARE PROXY Care Teams Casing Wringer Operator Relationship Specialty Start Date End Date Jeffy Gutierrez MD [address] [place] [address] Dr [address] JO-ANN Black PCP - General 10/25/23
== END 2024-10-14 12:16 | disposition home or self-care (01) ==
PROVIDERS: PCP Internal Medicine
DX: R55 Syncope and collapse (principal); F41.0 Panic disorder [episodic paroxysmal anxiety]; F44.5 Conversion disorder with seizures or convulsions; I10 Essential (primary) hypertension; F41.9 Anxiety disorder, unspecified

== ENCOUNTER → 2024-10-14 10:31 | Outpatient (BNVA) | payer OTHER, SELFPAY | PROVIDERS: PCP Internal Medicine | DX: R55 Syncope and collapse (principal); F41.0 Panic disorder [episodic paroxysmal anxiety]; F44.5 Conversion disorder with seizures or convulsions; I10 Essential (primary) hypertension; F41.9 Anxiety disorder, unspecified | CPT/HCPCS: 96127; 99212 ==

== ENCOUNTER 2024-10-20 03:22 | Emergency (ER) | payer OTHER, SELFPAY ==
--- NOTE | 2024-10-20 | ECG_ITS ---
Test Reason : DIFFICULTY BREAHING Blood Pressure : */* mmHG Vent. Rate : 97 BPM Atrial Rate : 97 BPM P-R Int : 148 ms QRS Dur : 102 ms QT Int : 324 ms P-R-T Axes : 57 20 7 degrees QTcB Int : 411 ms Normal sinus rhythm Minimal voltage criteria for LVH, may be normal variant ( R in aVL ) Borderline ECG When compared with ECG of 18-Oct-2023 16:01, No significant change was found Referred By: Generic ED Physician Electronically Signed By: Jacob Marina
--- NOTE | ~2024-10-20 | XR_ITS ---
CLINICAL HISTORY: sob 2 view chest x-ray Comparison: 09/01/2023 Findings: There is focal left lower lobe consolidation, possible pneumonia subsegmental atelectasis. Normal size heart. No acute fracture. IMPRESSION: 1. Left lower lobe consolidation, differential considerations noted. This document has been electronically signed by: Kamar Wilkerson MD on 10/20/2024 05:05:43
[2024-10-20 03:57] VITALS: BP 138/92; BP 138/98; PULSE 104; RESP 20; TEMP 37.2; O2SAT 97; BMI 31.0
[2024-10-20 04:09] LABS: MANUAL DIFF FLAG NO
[2024-10-20 04:13] LABS: Basophils Percent Auto 0.3 % (0-2); Eosinophils Absolute Auto 0.5 X10*3/uL (0.0-0.4); Hematocrit 32.9 % (37.0-47.0); Hemoglobin 10.5 g/dl (12.0-16.0); Imm Gran Abs Auto 0.08 X10*3/uL (0.00-0.03); Imm Gran Pct Auto 0.9 % (0.0-0.4); Lymphocytes Absolute Auto 1.2 X10*3/uL (1.2-4.9); Lymphocytes Percent Auto 13.2 % (20-40); Mean Corpuscular HGB Conc 31.9 g/dl (31.0-35.0); Mean Corpuscular Hemoglobin 24.5 pg (27.0-33.0); Mean Corpuscular Volume 76.7 fL (80.0-98.0); Mean Platelet Volume 11.1 fL (9.4-12.3); Monocytes Absolute Auto 0.5 X10*3/uL (0.1-1.2); Monocytes Percent Auto 5.8 % (2-11); Neutrophils Absolute Auto 6.9 x10*3/uL (2.0-8.3); Neutrophils Percent Auto 74.8 % (45-73); Platelet Count 280 X10*3/uL (160-400); Red Blood Count 4.29 X10*6/uL (4.20-5.50); Red Cell Distribution Width 15.9 % (11.0-16.0); White Blood Count 9.3 X10*3/uL (4.8-10.8)
[2024-10-20 04:50] LABS: Alanine Aminotransferase 58 U/L (0-31); Albumin Level 3.7 g/dL (3.5-5.0); Anion Gap 14 (12-20); Aspartate Amino Transferase 42 U/L (5-31); Bilirubin Total 0.3 mg/dL (0.0-1.0); Blood Urea Nitrogen 5 mg/dL (9-16); Carbon Dioxide 22 mmol/L (22-29); Chloride 109 mmol/L (96-108); Creatinine Clr Calc Pharmacy 102.7; Estimated Glomerular Filt Rate > 60; Glucose Random 106 mg/dL (60-115); Potassium 3.7 mmol/L (3.3-5.1); Sodium 141 mmol/L (135-145); Total Protein 7.5 g/dL (6.5-8.0)
[2024-10-20 04:51] LABS: Alkaline Phosphatase 148 U/L (39-117)
[2024-10-20 05:04] LABS: Influenza A PCR POSITIVE (Negative); Influenza B PCR NEGATIVE (Negative); Resp Syncy Virus RNA Qual PCR NEGATIVE (Negative); SARS COV2 PCR INHOUSE NEGATIVE (Negative)
--- OUTSIDE RECORDS SUMMARY | 2024-10-20 05:04 | XMS_ITS | Data Portability ---
Author Organization [place] [facility] Address [place] [address] Care Team Providers Care Head Librarian Name Role Phone [facility] Primary Care Provider Assessment Encounter Date Assessment Date Assessment LastModified by Organization Details LastModified Time 09/17/2022 09/17/2022 Overview/History : 27 YO F new to DH and new to provider She is being seen today at home Has PMH of depression, HTN, anxiety, anemia, gestational diabetes She is primarily bahraini speaking and she elects to use her friend via telephone to help translate instead of formal medical bahraini translation w/ our service. Of note she [...] days ago but then after I call [facility] to review records w/ her permission [...] present, apparently new, discussed w/ member of [facility] who reports this is new [...] visit -She reports she was seen in [facility] ED in Jul for this issue -She gives me permission to call [facility] to review records, I speak with staff Pharmacist Yadira Grace who reports that she has been seen numerous times between Jul, Aug and even yesterday. She has never been seen for a dental issue or facial swelling however. No mention of facial swelling in her chart from yesterday. She was educated at that time to f/u [facility] PCP for URI sxs. -Today [...] Review completed REVA Tomas [address], [place], [address], [place] [facility] 09/17/2022 14:01:37 section completed REVA Tomas [address], [place], [address], [place] [facility] 09/17/2022 12:55:35 Imaging Results None recorded. Procedure Notes None recorded. Medical Equipment None Reported. Allergies Allergen ID Allergen Name Allergen Category Reaction Reaction Severity Criticality Documentation Date Start Date Code Code System Note Provider Name and Address Organization Details Recorded Time 517006 Augmentin medicatio n Not available Not available Not available 09/17/2022 10881 2 RxNorm REVA Michelle [address], [facility] [place], [address], [place] [facility] 12:48:53 [id number] nifedipin e medicatio n Not available Not available Not available 09/17/2022 7417 RxNorm REVA Michelle [address], [facility] [place], [address], [place] [facility] 3 12:48:58 185038 Mucinex medicatio n Not available Not available Not available 09/17/2022 82217 7 RxNorm REVA Michelle [address], [facility] [place], [address], [place] [facility] 13:06:54 [id number] cyclobenz aprine medicatio n Not available Not available Not available 09/17/2022 63543 RxNorm REVA Michelle [address] [facility] [place], [address], [place] [facility] 13:07:10 [...] Not Available Not Available Not Available FreeStyle [place] Lite kit PLEASE CHECK GLUCOSE LEVEL FOR [...] /min 116 mm[Hg] 68 mm[Hg] Not Available [facility] 13:10:43 Social History Question Answer Notes LastModified by Organizat ion Details LastModified Time Tobacco Smoking Status Never Smoker REVA Tomas [address] [place], [place] [address], [address], [place] [facility] 09/17/2022 12:55:47 What Is [...] CHF N Parkinson's Disease N Cancer N Dementia N Stroke N COPD N Depression Y Hypothyroidism N Asthma N High Cholesterol N Rheumatoid Arthritis N Pulmonary Embolism N Hypertension Y A-fib N Osteoporosis N Kidney Disease N Gynecological HistoryNo gynecological history recorded. Obstetrics History GPAL:G 0 P 0 0 0 0 Past Encounters Encounter ID Performer Location Encounter Start Date Encounter Closed Date Diagnosis/Indication Diagnosis SNOMED-CT Code Diagnosis ICD10 Code Diagnosis Note [id number] REVA Coy [facility] [address] [place] [address] 09/17/2022 12:41:07 09/17/2022 14:58:27 Left parotid gland swelling [id number] K11.9 Health Concerns Section Related Observation LastModified by Organization Detai ls LastModified Time None Recorded Concern Status LastModified by Organization Details LastModified Time None Recorded Advance Directives Directive None Recorded Payers Encounter Date Sequence Insurance Name Policy Number Policy Gaona Covered Member ID Gaona Member ID Guarantor Name 09/17/2022 1 [facility] (MEDICAID HMO) [id number] [facility] [id number] [facility] Notes Date Note Type Note Provider Name and Address Organization Details Recorded Time 09/17/2022 text/html 27 YO F new to D H and new to providerShe is being seen today [facility] of depression, HTN, anxiety, anemia, gestational diabetesShradha is primarily bahraini speaking and she elects to use her friend via telephone to help translate instead of formal medical bahraini translation w/ our service.Of note she and [...] days ago but then after I call [facility] to review records w/ her permission [...] reported sxs or concerns today. REVA Tomas [address] [place] [address] [place], [address], [place] [facility] 09/17/2022 14:18:02 OBGyn Episode No OBEpisode recorded.
--- OUTSIDE RECORDS SUMMARY | 2024-10-20 05:04 | XMS_ITS | Clinical Summary ---
Author Organization [facility] ity Address [address] [place] [address] Care Team Providers Care Infantry Weapons Officer Name Role Phone Jeffy Gutierrez MD Primary [...] drink = 0.6 oz pur e alcohol) Comments Unknown Sex and Gender Information Value Date Recorded Sex Assigned at Not on file Legal Sex Female 4:16 AM EST Gender Identity Not on file Sexual Orientation [...] Annual BMP Blood Test 04/05/2024 COVID-19 Vaccine (1 - 2023-2 5 season) 2024 Influenza Vaccine [...] Documents on File Type Date Recorded Patient Supervisor Drawing Expl anation Health Care Decision (hx) 08/30/2023 HE ALTH CARE PROXY Health Care Decision (hx) 08/30/2023 HE ALTH CARE PROXY Health Care Decision (hx) 08/30/2023 HE ALTH CARE PROXY Care Teams Infantry Weapons Officer Relationship Specialty Start Date End Date Jeffy Gutierrez MD [address] [place] [address] Dr [address] [place], [place] PCP - General 10/25/23
--- NOTE | 2024-10-20 06:49 | ED_ITS ---
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 Patient states that she was diagnosed with the flu last week and is having increased shortness of breath / cough. Patient denies any dizziness, lightheadedness, abdominal pain, nausea, vomiting, fever, chills, blurry vision, double vision, loss of vision, chest pain, back pain, night sweats, pain with urination, increased urinary frequency, increased urinary urgency, blood in her urine, syncope or a near syncopal episode, recent trauma or falls, bowel incontinence, bladder incontinence, or any other complaints at this time. Relieving factors: none Exacerbating factors: none Associated symptoms: cough and shortness of breath Treatments prior to arrival: none Related Data Home Medications ?Medication ?Instructions ?Recorded ?Confirmed aspirin 81 mg tablet,delayed 81 mg PO DAILY 10/02/24 10/14/24 release Previous Rx's ?Medication ?Instructions ?Recorded miscellaneous medical supply #1 ea 03/30/23 (Blood Pressure Cuff) magnesium oxide 400 mg (241.3 mg 400 mg PO BEDTIME 30 days #30 tabs 01/31/24 magnesium) tablet sennosides 8.6 mg tablet (Senna 8.6 mg PO BEDTIME PRN constipation 02/01/24 Lax) #30 tabs diphenhydramine HCl 25 mg capsule 25 mg PO TID PRN allergic reaction 05/07/24 (Benadryl) or migraine headache 30 days #30 caps amlodipine 10 mg tablet 10 mg PO DAILY 90 days #90 tabs 10/14/24 propranolol 10 mg tablet 15 mg (1.5 x 10 mg) PO BID 90 days 10/14/24 #270 tabs sertraline 50 mg tablet 75 mg (1.5 x 50 mg) PO DAILY 30 10/14/24 days #45 tabs albuterol sulfate 1.25 mg/3 mL 1.25 mg (3 mL) inhalation Q4-6H 10/20/24 solution for nebulization PRN bronchospasm #90 mL albuterol sulfate 90 mcg/actuation 2 inh inhalation Q4-6H PRN 10/20/24 breath activated powder shortness of breath or wheezing #1 inhaler,sensor (Proair Digihaler) ea doxycycline hyclate 100 mg tablet 100 mg PO BID 7 days #14 tabs 10/20/24 Allergies Allergy/AdvReac Type Severity Reaction Status Date / Time morphine Allergy Severe Vomiting Verified 10/20/24 04:01 amoxicillin Allergy Mild Rash Verified 10/20/24 04:01 clavulanic acid Allergy Unknown Unknown Verified 10/20/24 04:01 [From Augmentin] cyclobenzaprine Allergy Palpitation Verified 10/20/24 04:01 [From Flexeril] s escitalopram Allergy Palpitation Verified 10/20/24 04:01 s hydralazine Allergy Nausea and Verified 10/20/24 04:01 Vomiting lorazepam [From Ativan] Allergy Palpitation Verified 10/20/24 04:01 s Review of Systems 2 Constitutional: Constitutional: Reports no additional constitutional complaints, Denies chills, Denies fever(s) and Denies night sweats Eyes: Eyes: Reports no additional eye complaints, Denies blurry vision, Denies change in vision, Denies diplopia, Denies eye discharge, Denies loss of vision and Denies eye pain ENT: Denies dizziness Cardiovascular: Cardiovascular: Reports no additional cardiovascular complaints, Denies chest pain, Denies lightheadedness, Denies Loss of Consciousness and Reports dyspnea Respiratory: Respiratory: Reports no additional respiratory complaints, Reports cough and Reports dyspnea Gastrointestinal: Gastrointestinal: Reports no additional gastrointestinal complaints, Denies abdominal pain, Denies melena, Denies change in bowel habits and Denies change in stool character Genitourinary: Genitourinary: Denies hematuria, Denies urinary frequency, Denies dysuria, Denies urinary incontinence, Denies urinary hesitancy and Denies urinary urgency Musculoskeletal: Musculoskeletal: Reports no additional musculoskeletal complaints, Denies numbness and Denies tingling Neurologic: Denies dizziness, Denies loss of vision, Denies numbness and Denies tingling Psychiatric: Psychiatric: Reports no additional psychiatric complaints Endocrine: Endocrine: Reports no additional endocrine complaints Hematologic/Lymphatic: Hematologic/Lymphatic: Reports no additional hematologic/lymphatic complaints Allergic/Immunologic: Allergic/Immunologic: Reports no additional allergic/immunologic complaints [facility] Past Medical History Attestation statement: The following information was validated with the patient. Source: old records reviewed and nursing notes reviewed Medical History Pituitary microadenoma Psychogenic nonepileptic seizure Hyperthyroidism Essential hypertension Breast pain, left Overweight (BMI 25.0-29.9) Heavy menses Chronic constipation GERD without esophagitis Anemia HTN (hypertension) Anxiety Surgical History H/O tooth extraction (~12/10/22) H/O: Family History Family History Paternal Aunt Breast cancer, Onset Age: 35 Maternal Aunt Breast cancer, Onset Age: 40 Other Diabetes High cholesterol Hypertension Social History Social History Housing: House Alcohol intake: never Patient Tobacco Use Status: Never used Tobacco Tobacco use type: Cigarette e-Cigarette/Vaping Use: Never Used Second Hand Smoke Exposure: No Advance Directives: No Advance Directives Information Provided: Yes Do you have a plan to hurt others: No Plan service: No Current occupational status: unemployed Cognitive needs: No Hearing needs: No Vision needs: No Physical Exam ED Vital Signs: Vital Signs - 24 hr 10/20/24 03:57 10/20/24 06:00 10/20/24 07:26 Temperature 98.9 F Pulse Rate 104 H 109 H Respiratory Rate 20 18 Blood Pressure 138/92 H Pulse Oximetry 97 Oxygen Delivery Method Room Air Room Air BMI result Body Mass Index 31.0 Const General: cooperative, no acute distress, alert and awake Nutritional Appearance: well nourished Orientation/consciousness: patient oriented x3 Limitations: no limitations HENMT Head: Yes normal to inspection and Yes atraumatic Ears: hearing grossly normal bilaterally and external ears normal General nose exam: Normal external nose present, no nasal discharge noted and no epistaxis Face and sinus: Yes normal facial exam, No abrasion and No laceration Mouth: Normal oral and palatal mucosa present, no drooling and no muffled voice Eyes General: appearance normal, both eyes and all related structures Periorbital: periorbital findings normal Eyelids: Yes eyelids normal Conjunctivae: conjunctivae normal Pupils: Equal, round and reactive pupils present EOM: EOMs intact bilaterally Neck Neck: Yes normal visual inspection, Yes full ROM and Yes no lymphadenopathy Chest Chest palpation & inspection: normal inspection of the chest Resp Effort & Inspection: normal respiratory effort and able to speak in complete sentences Auscultation: wheezes throughout GI Inspection: Yes normal to inspection Neuro General: patient oriented x3, moves all extremities and CN's II-XI intact bilaterally Cranial nerves: Yes Equal, round and reactive pupils present Cognition (Neuro): normal cognition Extrem General: Yes normal to inspection, Yes full ROM and Yes capillary refill normal Psych Appearance: grossly normal Mental Status: mental status grossly normal Affect: normal affect Attitude: cooperative Thought process: Normal thought process present Thought content: Normal thought content present Insight: Good insight present (Psych) Medications Administered Discontinued Medications Generic Name Dose Route Start Last Admin Trade Name Bhupendraq PRN Reason Stop Dose Admin Albuterol/Ipratropium 3 ml 10/20/24 07:21 10/20/24 07:25 Albuterol/Iprat 2.5/0.5mg 3 Ml Ampul.Neb INHALE 10/20/24 07:22 3 ml ONCE ONE Administration Medical Decision Making Medical Decision Making [facility] Narrative: Patient is a 29 year old assigned female at with a history of migraine, asthma, anxiety, HTN, GERD, and recent Influenza diagnosis presenting to the emergency department today with increased shortness of breath and cough. Patient's physical exam was as noted in the physical exam portion of this note. Patient's blood work was unremarkable. Patient's EKG was unremarkable. Patient's chest x-ray showed evidence of pneumonia. I explained my physical exam findings as well as all test results to the patient. I answered all questions asked by the patient. I stressed the importance of the patient taking her medication as directed (either prescribed or as the over the counter packaging recommends). I stressed the importance of the patient following up with her primary care provider. I stressed the importance of the patient returning to the emergency department immediately if her symptoms were to worsen or if she were to develop any dizziness, shortness of breath, difficulty breathing, chest pain, blurry vision, loss of vision, nausea, vomiting, abdominal pain, fever, chills, back pain, or any other complaints. Patient verbalized agreement and understanding with this treatment plan and discharge. Differential Diagnosis Differential Diagnoses: The differential diagnosis associated with the presentation includes Asthma exacerbation Pneumonia Influenza Admission/Observation Consideration of admission/observation: Escalation of care including admission/observation considered Patient would have been admitted to the hospital had her work up had any findings where hospital admission was appropriate and her clinical presentation warranted hospital admission. Lab Data [facility] Lab Attestation statement: I reviewed the patient's lab results. My interpretation of these results are in the [facility] Rationale portion of this note. 10/20/24 04:00 10/20/24 04:00 Labs: Lab Results 10/20/24 Range/Units 04:00 WBC 9.3 (4.8-10.8) X10*3/uL RBC 4.29 (4.20-5.50) X10*6/uL Hgb 10.5 L (12.0-16.0) g/dl Hct 32.9 L (37.0-47.0) % MCV 76.7 L (80.0-98.0) fL MCH 24.5 L (27.0-33.0) pg MCHC 31.9 (31.0-35.0) g/dl RDW 15.9 (11.0-16.0) % Plt Count 280 (160-400) X10*3/uL MPV 11.1 (9.4-12.3) fL Immature Gran % (Auto) 0.9 H (0.0-0.4) % Neut % (Auto) 74.8 H (45-73) % Lymph % (Auto) 13.2 L (20-40) % [place] % (Auto) 5.8 (2-11) % Eos % (Auto) 5.0 H (0-4) % Baso % (Auto) 0.3 (0-2) % Lymph # (Auto) 1.2 (1.2-4.9) X10*3/uL [place] # (Auto) 0.5 (0.1-1.2) X10*3/uL Eos # (Auto) 0.5 H (0.0-0.4) X10*3/uL Baso # (Auto) 0.0 (0.0-0.2) X10*3/uL Abs Immat Gran (auto) 0.08 H (0.00-0.03) X10*3/uL Absolute Neuts (auto) 6.9 (2.0-8.3) x10*3/uL Absolute Nucleated RBC 0.000 (0.0-0.012) X10*3/uL Nucleated RBC % (auto) 0.0 (0.0-0.2) /100WBC Sodium 141 (135-145) mmol/L Potassium 3.7 (3.3-5.1) mmol/L Chloride 109 H (96-108) mmol/L Carbon Dioxide 22 (22-29) mmol/L Anion Gap 14 (12-20) BUN 5 L (9-16) mg/dL Creatinine 0.71 (0.5-1.4) mg/dL Estim Creat Clear Calc 102.7 Estimated GFR > 60 Random Glucose 106 (60-115) mg/dL Calcium 9.0 D (8.4-10.2) mg/dL Total Bilirubin 0.3 (0.0-1.0) mg/dL AST 42 H (5-31) U/L ALT 58 H (0-31) U/L Alkaline Phosphatase 148 H (39-117) U/L Total Protein 7.5 (6.5-8.0) g/dL Albumin 3.7 (3.5-5.0) g/dL Influenza Type A (PCR) POSITIVE A (Negative) Influenza Type B (PCR) NEGATIVE (Negative) RSV RNA Qual (PCR) NEGATIVE (Negative) SARS-CoV-2 RNA (RT-PCR) NEGATIVE (Negative) Independent Interpretation I performed an independent interpretation of an: EKG and Plain X-Ray Interpretation: My interpretation is in agreement with the radiologist's impression of this imaging study. L CLINICAL HISTORY: sob 2 view chest x-ray Comparison: 09/01/2023 Findings: There is focal left lower lobe consolidation, possible pneumonia subsegmental atelectasis. Normal size heart. No acute fracture. IMPRESSION: 1. Left lower lobe consolidation, differential considerations noted. This document has been electronically signed by: Kamar Wilkerson MD on 10/20/2024 05:05:43 Dictated By: Kamar Wilkerson MD Signed By: Electronically signed by Kamar Wilkerson MD 10/20/24 0506 Vent. Rate: 97 BPM Atrial Rate: 97 BPM P-R Int: 148 ms QRS Dur: 102 ms QT Int: 324 ms P-R-T Axes: 57 20 7 degrees QTcB Int: 411 ms Normal sinus rhythm Minimal voltage criteria for LVH, may be normal variant (R in aVL) When compared with ECG of 18-Oct-2023 16:01, No significant change was found DD/ [id number] Radiology Impression Discussion of test interpretation with radiology: I have reviewed the radiologist's reading. Prescription Management I considered prescription management with: Antibiotic (patient prescribed an antibiotic for pneumonia) Discharge Plan Discharge Clinical Impression: Pneumonia, Influenza Patient Disposition: Home, Self-Care Instructions: Influenza (DC), Pneumonia (ED) Additional Instructions: Follow up with your primary care provider. Return to the emergency department immediately if your symptoms worsen or if you develop any dizziness, shortness of breath, difficulty breathing, chest pain, blurry vision, loss of vision, nausea, vomiting, abdominal pain, fever, chills, back pain, or any other complaints. Amisha?seguimiento?con kern m?dico de atenci?n primaria. Acuda inmediatamente al servicio de urgencias si rosey s?ntomas empeoran o si presenta falta de aliento, dificultad para respirar, dolor tor?cico, mareos, aturdimiento, dolor de espalda, dolor abdominal, fiebre, escalofr?os o cualquier otro s?ntoma. Prescriptions: New doxycycline hyclate 100 mg tablet 100 mg PO BID 7 Days Qty: 14 0RF Proair Digihaler 90 mcg/actuation aero powdr breath act w/sensor 2 inh inhalation Q4-6H PRN (Reason: shortness of breath or wheezing) Qty: 1 0RF albuterol sulfate 1.25 mg/3 mL solution for nebulization 1.25 mg inhalation Q4-6H PRN (Reason: bronchospasm) Qty: 90 0RF No Action (DME) Blood Pressure Cuff Misc See Rx Instructions .ROUTE .MEDSUPPLY Qty: 1 0RF Rx Instructions: As directed sennosides [Senna Lax] 8.6 mg tablet 8.6 mg PO BEDTIME PRN (Reason: constipation) Qty: 30 1RF magnesium oxide 400 mg (241.3 mg magnesium) tablet 400 mg PO BEDTIME 30 Days Qty: 30 6RF Rx Instructions: may hold for loose stools diphenhydramine HCl [Benadryl] 25 mg capsule 25 mg PO TID PRN (Reason: allergic reaction or migraine headache) 30 Days Qty: 30 1RF aspirin 81 mg tablet,delayed release (DR/EC) 81 mg PO DAILY propranolol 10 mg tablet 15 mg PO BID 90 Days Qty: 270 0RF sertraline 50 mg tablet 75 mg PO DAILY 30 Days Qty: 45 2RF amlodipine 10 mg tablet 10 mg PO DAILY 90 Days Qty: 90 0RF Referrals: Jeffy Gutierrez MD [Primary Care Provider] - Print Language: Zambian
[2024-10-20] MEDS: Albuterol/Iprat 2.5/0.5MG 3 ML AMPUL.NEB INHALE (07:25)
[2024-10-20 07:26] VITALS: PULSE 109; RESP 18; O2SAT 98
[2024-10-20 07:47] VITALS: BP 135/94; PULSE 100; RESP 18; TEMP 37.3; O2SAT 97
== END 2024-10-20 07:49 | disposition home or self-care (01) ==
PROVIDERS: Emergency Provider Emergency Medicine; PCP Internal Medicine
DX: J18.9 Pneumonia, unspecified organism (principal); J10.1 Influenza due to other identified influenza virus with other respiratory manifestations; R06.02 Shortness of breath; R05.9 Cough, unspecified; Z03.818 Encounter for observation for suspected exposure to other biological agents ruled out; Z79.899 Other long term (current) drug therapy
CPT/HCPCS: 0241U; 71046; 80053; 85025; 93005; 94640; 99284; 99285

== ENCOUNTER → 2024-10-20 03:54 | Outpatient (BNV) | payer OTHER, SELFPAY | PROVIDERS: Emergency Provider Emergency Medicine; PCP Internal Medicine; Visit Provider Internal Medicine Cardiovascular Disease | DX: R06.00 Dyspnea, unspecified (principal) | CPT/HCPCS: 93010 ==

== ENCOUNTER → 2024-10-20 04:01 | Outpatient (BNV) | payer OTHER, SELFPAY | PROVIDERS: PCP Internal Medicine; Visit Provider Specialist | DX: R06.02 Shortness of breath (principal) | CPT/HCPCS: 71046 ==

== ENCOUNTER 2024-11-21 14:58 | Outpatient (AMB) | payer OTHER, SELFPAY ==
--- NOTE | 2024-11-21 14:58 | A.OFFVIS_ITS ---
Vital Signs 3 11/21/24 15:00 Height 5 ft Weight 158 lb 11.725 oz BMI 31.0 BP 130/88 Blood Pressure Location Rt brachial Position Sitting Pulse 76 Pulse Source Pulse Oximeter Pulse Oximetry (%) 100 Oxygen Delivery Method Room Air Intake Visit Reasons: URGENT REFERRAL- Thyrotoxicosis Intake Note: New patient present here today to established treatment for Thyrotoxicosis: L Director Strategic Planning Required: Yes Director Strategic Planning Language: Churn Operator Services: Director Strategic Planning Present (Murfie KEVIN) Director Strategic Planning Name: Tressa #[id number] Accompanied by: Self / Same As Patient Allergies morphine Allergy (Severe, Verified 11/21/24 15:04) Vomiting amoxicillin Allergy (Mild, Verified 11/21/24 15:04) Rash clavulanic acid [From Augmentin] Allergy (Unknown, Verified 11/21/24 15:04) Unknown cyclobenzaprine [From Flexeril] Allergy (Verified 11/21/24 15:04) Palpitations escitalopram Allergy (Verified 11/21/24 15:04) Palpitations hydralazine Allergy (Verified 11/21/24 15:04) Nausea and Vomiting lorazepam [From Ativan] Allergy (Verified 11/21/24 15:04) Palpitations Medication List - Last Reconciled 11/21/24 by Beth Oswald MD albuterol sulfate 1.25 mg (3 mL) inhalation Q4-6H PRN albuterol sulfate 90 mcg/actuation (Proair Digihaler) 2 inhalations inhalation Q4-6H PRN amlodipine 10 mg PO DAILY 90 days diphenhydramine HCl (Benadryl) 25 mg PO TID PRN 30 days doxycycline hyclate 100 mg PO BID 7 days magnesium oxide 400 mg PO BEDTIME 30 days miscellaneous medical supply (Blood Pressure Cuff) As directed propranolol 15 mg (1.5 x 10 mg) PO BID 90 days sennosides (Senna Lax) 8.6 mg PO BEDTIME PRN sertraline 75 mg (1.5 x 50 mg) PO DAILY 30 days HPI Comments Details: 29-year-old female coming in today for initial evaluation hyperthyroidism in the setting of Graves disease. Also records showed that she has a history of a pituitary microadenoma. Otherwise medical history significant for hypertension, anxiety, migraines, nonepileptic seizures. Graves disease HPI Was previously following with [facility] [place] endocrinology Graves disease diagnosed in June 2021 with positive TR AB antibodies, and she was treated with methimazole for about 1 year. Her symptoms at the time of diagnosis included diarrhea, palpitations, throat pain, feeling hot, weight loss of 16 lb in 1 week. Unclear why she came off methimazole. Subsequently she was again prescribed methimazole in October of 2023 when she took 1 dose and had a sick reaction to it. She was then subsequently prescribed PTU [address] soft tissue neck done at [facility] [place] in October 2023 during hospitalization commented on normal thyroid size. She had a c section ( baby is doing well) August 182023, born at 35 weeks of gestation She has been off PTU since she found out she was in November 2024, per patient PCP stopped it Blood work done in Sep 2024 TSH free t4 normal Reports palpitations currently on propanolol 15 mg BID Reports dizziness, hot flashes, heat intolerance , increased diaphoresis , no tremors. Reports loose stools constantly Does report dryness and blurring of vision intermittently. Has pain on right eye movement. Hasnt been evaluated for Graves eye disease. Was seeing an eye doctor previously but wants t chmage as apparently they didnt provide Pashto interpretation. Not breast feeding, not planning to Patient does report difficulty swallowing, pain on swallowing. Reports voice hoarseness. Patient denies any history of childhood neck radiation. Denies having ever used lithium, amiodarone or biotin supplements. Patient denies any family history of thyroid cancer . Maternal aunt has Graves disease s/p thyroidectomy Pituitary microadenoma Brain MRI 10/31/2023 for evaluation of seizure disorder which showed a possible 3 mm pituitary microadenoma. Assessment was limited due to motion artifact. 10/29/2023: Prolactin was mildly elevated at 39.5 however this was after a possible seizure. She has a history of nonepileptic seizures. Reports intermittent blurry vision , chronic migraines no change in ring size or show size Has history of prediabetes, not on meds Gained 15 to 20 lbs overall since 2023 but was preganant through 2023, lost weight after preganancy and now gaining again recently has had 3 pregnancies , s/p tubal ligation now periods have restarted but she has been having flow for the past 14 days as of today Laboratory Tests 0710/17/23 10/18/23 09:11 08:03 17:51 TSH 2.16 < 0.01 L < 0.01 L Free T4 2.17 H 2.23 H Total T3 Free T3 Reverse T3 10/23/23 10/23/23 11/27/23 13:05 16:34 10:05 TSH < 0.01 L < 0.01 L Free T4 2.17 H Total T3 270 H Free T3 Reverse T3 01/15/24 10/04/24 16:56 07:42 TSH 16.97 H 1.90 Free T4 0.49 L 0.86 Total T3 124 112 Free T3 3.0 Reverse T3 15 PFSH Medical History Pituitary microadenoma Psychogenic nonepileptic seizure Hyperthyroidism Essential hypertension Breast pain, left Overweight (BMI 25.0-29.9) Heavy menses Chronic constipation GERD without esophagitis Anemia HTN (hypertension) Anxiety Surgical History H/O tooth extraction (~12/10/22) H/O: Family History Paternal Aunt Breast cancer, Onset Age: 35 Maternal Aunt Breast cancer, Onset Age: 40 Other Diabetes High cholesterol Hypertension Social History Housing: House Alcohol intake: never Patient Tobacco Use Status: Never used Tobacco Tobacco use type: Cigarette e-Cigarette/Vaping Use: Never Used Second Hand Smoke Exposure: No service: No Current occupational status: unemployed Cognitive needs: No Hearing needs: No Vision needs: No Physical Exam Vital Signs: Last Vital Signs Pulse 76 11/21/24 15:00 BP 130/88 11/21/24 15:00 Pulse Ox 100 11/21/24 15:00 Oxygen Delivery Method Room Air 11/21/24 15:00 BMI result Body Mass Index 31.0 Assessment & Plan Assessment & Plan (1) Hyperthyroidism: Code(s): E05.90 - Thyrotoxicosis, unspecified without thyrotoxic crisis or storm Category: Medical Plan: 29-year-old female coming in today for initial evaluation of hyperthyroidism with Graves disease. Diagnosed in June 2021 with positive TSH receptor antibodies. She was apparently on methimazole for 1 year and then unclear why it was stopped. She was hospitalized in October of 2023 with nonepileptic seizures, at that time she was restarted on PTU 100 mg 3 times a day. Apparently then she did not follow up with [facility] [place] endocrinology overseeing her before. She just had a C- section in August 2024, she has been off any thyroid medications for the past year while she was . Blood work in September 2024 showed normal thyroid function. No antibodies done recently. She has significant complains of hyperthyroid symptoms today. However does not appear tremulous on exam, not tachycardic. She is on propranolol 15 mg b.i.d. we will continue this. I will recheck her thyroid function testing as well as her antibody levels. She also has some compressive symptoms. Prominent thyroid on exam. Discussed with patient that about 30% of the patients have remission after 12-18 months of treatment with methimazole. More recent data has shown longer periods of treatment resulting in better remission rates as well. At this time we will plan to continue treatment with methimazole and continue adjusting the dose as needed. In the long run if she does not have remission, we also briefly discussed definitive therapy options of radioactive iodine ablation and total thyroidectomy and the need for requiring long-term levothyroxine therapy after those procedures. I discussed with her that depending on her thyroid function results, if grossly abnormal we will reach out to her over the phone and start her on methimazole which I prefer over PTU due to once daily dosing plus less side effects. The following were discussed as potential side effects of methimazole: - Serious skin rashes - nausea, vomiting, or severe hepatic injury - Agranulocytosis: a rare side effect of methimazole involves a severe decrease in the production of white blood cells. This condition is extremely serious, but affects only one out of every 200 to 500 people who take an antithyroid drug. Agranulocytosis more commonly occurs within the first three months of starting treatment with an antithyroid drug, but can occur at any time. If patient develops a fever (temperature above 100.5F), or other signs or symptoms of infection, she should stop taking the tapazole and immediately have a complete blood count (CBC) done. Serious and potentially life threatening infections, or even , can occur before agranulocytosis resolves. However, once the antithyroid drug is stopped, agranulocytosis usually resolves within a week. - Arthralgias, myalgias - Renal: Nephritis - Fever Patient will stop medication and call our office if these occur. Plan: - ordered ultrasound of the thyroid -ordered TSH, free T4, total T3, TSH receptor, TSI and TPO antibody levels - follow up in 6 weeks (2) Graves' eye disease: Code(s): E05.00 - Thyrotoxicosis with diffuse goiter without thyrotoxic crisis or storm Category: Medical (3) Graves disease: Code(s): E05.00 - Thyrotoxicosis with diffuse goiter without thyrotoxic crisis or storm Category: Medical Plan: On exam patient does have significant exophthalmos and does complain of painful eye movements. I put in referral to Ophthalmology. For evaluation of Graves eye disease. Plan: -ophthalmology referral placed (4) Pituitary microadenoma: Code(s): D35.2 - Benign neoplasm of pituitary gland Category: Medical Plan: October 2023 she also had an MRI at [facility] [place] which showed a 3 mm pituitary microadenoma. However had motion artifact which limited evaluation. I will order an MRI of the pituitary. Given this is a pituitary microadenoma, it is controversial whether we should just test for prolactin levels and only assess hyper secretion and hypo secretion based on symptoms versus test for all hypo secretion hyper secretion. at this time she does not have any symptoms of hyper secretion so we will defer assessing 24 hour urine cortisol levels for now. However I will test her for baseline cortisol acth levels, as well as other pituitary panel. Plan: - ordered pituitary panel -ordered MRI of the pituitary -follow up in 6 weeks to discuss results Plan I spent 60 minutes in reviewing the record, seeing the patient and documenting in the medical record. Orders: Orders 2 Thyroid Stimulating Hormone Today E05.00 - Thyrotoxicosis with diffuse goiter without thyrotoxic crisis or storm Free T4 (Free Thyroxine) Today E05.00 - Thyrotoxicosis with diffuse goiter without thyrotoxic crisis or storm Triiodothyronine T3 Total Today E05.00 - Thyrotoxicosis with diffuse goiter without thyrotoxic crisis or storm Thyrotropin Receptor Antibody Today E05.00 - Thyrotoxicosis with diffuse goiter without thyrotoxic crisis or storm Thyroid Peroxidase Antibodies Today E05.00 - Thyrotoxicosis with diffuse goiter without thyrotoxic crisis or storm US thyroid Today E05.00 - Thyrotoxicosis with diffuse goiter without thyrotoxic crisis or storm Basic Metabolic Panel Today D35.2 - Benign neoplasm of pituitary gland Follicle Stimulating Hormone Today D35.2 - Benign neoplasm of pituitary gland IGF-1 (Somatomedin C) Today D35.2 - Benign neoplasm of pituitary gland DHEA Sulfate Today D35.2 - Benign neoplasm of pituitary gland Thyroid Stimulating Immunoglob Today E05.00 - Thyrotoxicosis with diffuse goiter without thyrotoxic crisis or storm MR head/brain wo/w con Today D35.2 - Benign neoplasm of pituitary gland Adrenocorticotropic Hormone Today D35.2 - Benign neoplasm of pituitary gland Lutenizing Hormone Today D35.2 - Benign neoplasm of pituitary gland Estradiol Ultra Sensitive Today D35.2 - Benign neoplasm of pituitary gland Prolactin Today D35.2 - Benign neoplasm of pituitary gland Human Growth Hormone Today D35.2 - Benign neoplasm of pituitary gland Cortisol Random Today D35.2 - Benign neoplasm of pituitary gland Alpha Subunit Today D35.2 - Benign neoplasm of pituitary gland Referrals 2 Ophthalmology Referral E05.00 - Thyrotoxicosis with diffuse goiter without thyrotoxic crisis or storm, E05.90 - Thyrotoxicosis, unspecified without thyrotoxic crisis or storm Patient Instructions: do banquet line cook fasting AM blood work Do ultrasound of the thyroid, someone will call you to schedule this Call the eye doctors office to get evaluated for Graves orbitopathy Hacer an?lisis de edmond temprano en la ma?nathan en ayunas. H?gase annelise ecograf?a de tiroides; le llamar?n para programarla. Llame al oftalm?logo para que le eval?en si tiene orbitopat?a de Graves. The following were discussed as potential side effects of methimazole: - Serious skin rashes - nausea, vomiting, or severe hepatic injury - Agranulocytosis: a rare side effect of methimazole involves a severe decrease in the production of white blood cells. This condition is extremely serious, but affects only one out of every 200 to 500 people who take an antithyroid drug. Agranulocytosis more commonly occurs within the first three months of starting treatment with an antithyroid drug, but can occur at any time. If patient develops a fever (temperature above 100.5F), or other signs or symptoms of infection, she should stop taking the tapazole and immediately have a complete blood count (CBC) done. Serious and potentially life threatening infections, or even , can occur before agranulocytosis resolves. However, once the antithyroid drug is stopped, agranulocytosis usually resolves within a week. - Arthralgias, myalgias - Renal: Nephritis - Fever Patient will stop medication and call our office if these occur. Se analizaron los siguientes posibles efectos secundarios del metimazol: - Erupciones cut?neas graves - N?useas, v?mitos o da?o hep?elena grave - Agranulocitosis: un efecto secundario poco com?n del metimazol consiste en annelise disminuci?n grave de la producci?n de gl?bulos blancos. Esta afecci?n es extremadamente grave, scot afecta solo a annelise de cada 200 a 500 personas que charmaine un medicamento antitiroideo. La agranulocitosis se presenta con mayor frecuencia nidia los primeros lion meses tras el inicio del tratamiento con un medicamento antitiroideo, scot puede ocurrir en cualquier momento. Si la paciente presenta fiebre (temperatura superior a 38 ?C) u otros signos o s?ntomas de infecci?n, debe suspender el tapazol y realizarse inmediatamente un hemograma completo. Pueden producirse infecciones graves y potencialmente mortales, o incluso la muerte, antes de que la agranulocitosis se resuelva. Sin embargo, annelise vez suspendido el medicamento antitiroideo, la agranulocitosis suele resolverse en annelise semana. - Artralgias, mialgias - Renal: Nefritis - Fiebre El paciente suspender? la medicaci?n y llamar? a nuestra consulta si se presentan estos s?ntomas. Coding Level of Care Code New Pt Level 5 (97288) Diagnoses Hyperthyroidism E05.90 Graves' eye disease E05.00 Graves disease E05.00 Pituitary microadenoma D35.2 Time Spent (min) 60
[2024-11-21 15:00] VITALS: BP 130/88; PULSE 76; O2SAT 100; BMI 31.0
--- OUTSIDE RECORDS SUMMARY | 2024-11-21 18:43 | XMS_ITS | Clinical Summary ---
Author Organization [facility] ity Address [address] [place] [address] Care Team Providers Care Certified Real Estate Appraiser Name Role Phone Jeffy Gutierrez MD Primary [...] patient's age to complete this topic Meningococcal B Vacine Aged Out No lo nger eligible based on patient's age to complete [...] Documents on File Type Date Recorded Patient Cabinet Assembler Expl anation Health Care Decision (hx) 08/30/2023 [facility]OX[facility] Health Care Decision (hx) 08/30/2023 HE [facility] PROXY Health Care Decision (hx) 08/30/2023 HE [facility] PROXY Care Teams Certified Real Estate Appraiser Relationship Specialty Start Date End Date Jeffy Gutierrez MD [address] [place] [address] [address] JO-ANN Black PCP - General 10/25/23
--- OUTSIDE RECORDS SUMMARY | 2024-11-21 18:44 | XMS_ITS | Clinical Summary ---
Author Organization [facility] Address [address] [place] [address] Care Team Providers Care Director Economic Name Role Phone Patient, Has No Pcp Or Ref Primary Care Provider Unavailable Allergies Active Allergy Reactions Criticality Noted Date Comments Escitalopram Oxalate Vomiting 11/17/2024 Lorazepam Hives 11/17/2024 Penicillins Hives 11/17/2024 Medications amLODIPine (NORVASC) 10 mg tablet Take 10 mg by mouth once a day. Active Encounters Date Type Department Care Team Description 11/17/2024 5:48 PM EDT - 11/18/2024 12:23 AM EDT Emergency [facility] Emergency Department [address] [place] [address] Rosette Franklin MD Seizure-like activity (HCC) (Primary Dx) Discharge Disposition: Home or Self Care (01) from Last 3 Months Social History Tobacco Use Types Packs/Day Years Used Date Smoking Tobacco: Never Assessed Comments Unknown Sex and Gender Information Value Date Recorded Sex Assigned at Not on file Legal Sex Female 5:47 PM EDT Gender Identity Not on file Sexual Orientation Not on file Last Filed Vital Signs Vital Sign Reading Time Taken Comments Blood Pressure 136/93 11/17/2024 6:01 PM EDT Pulse 65 11/17/2024 8:45 PM EDT Temperature 37 ??C (98.6 ??F) 11/17/2024 6:08 PM EDT Respiratory Rate 19 11/17/2024 8:45 PM EDT Oxygen Saturation 99% 11/17/2024 8:45 PM EDT Inhaled Oxygen Concentration - - Weight - - Height - - Body Mass Index - - Plan of Treatment Health Maintenance Due Date Last Done Comments Cervical Cancer Screening 1994 HIV Screening 1994 HPV and Pap Smear 1994 Hepatitis C Screening 1994 Pap Smear 1994 Varicella Vaccines (1 of 2 - 13+ 2-dose series) 2007 Hepatitis B Vaccines (1 of 3 - 19+ 3-dose series) 2013 COVID-19 Vaccine (3 - 2023-2 5 season) 2024 08/12/2021, 04/02/2021 Alcohol/Substance Use Screening 09/11/2024 Depression Screening and Follow-Up 09/11/2024 Social Drivers of Health Annual Screening 09/11/2024 DTaP,Tdap,and Td Vaccines (3 - Td or Tdap) 06/25/2034 06/25/2024, 05/21/2019 RSV Vaccine (60+ years old and patients) (1 - 1-dose 75+ series) 2069 Pneumococcal Vaccine: Pediatric (0-5 Years) and At-Risk Patients (6-50 Years) Aged Out 07/09/2019 No longer eligible based on patient's age to complete this topic Influenza Vaccine Completed 06/06/2024, 06/04/2019 Procedures * Due to [place] state law, this organization might not be sharing negative HIV tests. Procedure Name Priority Date/Time Associated Diagnosis Comments XR CHEST 1 VW STAT 11/17/2024 10:36 PM EDT TROPONIN T HIGH SENSITIVITY STAT 11/17/2024 10:10 PM EDT TROPONIN T HIGH SENSITIVITY STAT 11/17/2024 9:18 PM EDT MICROSCOPIC URINALYSIS ONLY Routine 11/17/2024 8:50 PM EDT UA/CULTURE REFLEX Routine 11/17/2024 8:5 0 PM EDT URINALYSIS W/REFLEX TO MICROSCOPIC & CULTURE Routine 11/17/2024 8:50 PM EDT URINE CULTURE, ROUTINE Routine 11/17/2024 8:[address] HEAD WO CONTRAST STAT 11/17/2024 6 :33 PM EDT HCG, QUALITATIVE, SERUM STAT 11/17/2024 6:23 PM EDT MAGNESIUM STAT 11/17/2024 6:23 PM EDT BASIC METABOLIC PANEL STAT 11/17/2024 6:23 PM EDT CBC AUTO DIFFERENTIAL STAT 11/17/2024 6:23 PM EDT from Last 3 Months Results * Due to [place] state law, this organization might not be sharing negative HIV tests. * XR Chest 1 vw (11/17/2024 10:36 PM EDT) Anatomical Region Laterality Modality Body Computed Radiogr aphy 11/17/2024 11:1 1 PM EDT Impressions 11/17/2024 11:12 PM EDT No acute findings. If this radiology report contains a blank impression section, it is an incomplete radiology report. ??Please contact the interpreting radiologist or applicable radiology division as soon as possible to obtain the completed interpretation. ? Workstation ID: [id number] Narrative 11/17/2024 11:12 PM EDT INDICATION: 29 years Female who presents with/for Fatigue and malaise TECHNIQUE: Single view of the chest COMPARISON: None FINDINGS: Lines/Tubes/Support: Telemetry leads. Mediastinum: Cardiomediastinal silhouette is without acute findings. Trachea appears midline. Lungs/Pleura: Symmetrically inflated without focal consolidation, significant pleural effusion, or sizable pneumothorax. Musculoskeletal: No displaced fractures. Abdomen: No acute findings. Resulting Agency Comment [id number] Procedure Note Marco A Gonzalez MD - 11/17/2024 INDICATION: 29 years Female who presents with/for Fatigue and malaise TECHNIQUE: Single view of the chest COMPARISON: None FINDINGS: Lines/Tubes/Support: Telemetry leads. Mediastinum: Cardiomediastinal silhouette is without acute findings.Trachea appears midline. Lungs/Pleura: Symmetrically inflated without focal consolidation,significant pleural effusion, or sizable pneumothorax. Musculoskeletal: No displaced fractures. Abdomen: No acute findings. IMPRESSION: No acute findings. If this radiology report contains a blank impression section, it is anincomplete radiology report. Please contact the interpreting radiologistor applicable radiology division as soon as possible to obtain thecompleted interpretation. Workstation ID: [id number] us Rosette Franklin MD IMG XR PROCEDURES Final Result * Repeat Troponin #1 (11/17/2024 10:10 PM EDT) Only the most recent of2 resultswithin the time period is included. Troponin T High Sensitivity <6 <=13 ng/L 11/17/2024 10:37 PM EDT [facility] Comment: Yt-Ngsqoptc-G level of 52 ng/L or higher at 0-hour at presentation is recommended by the ESC 0/1-hour algorithm for identifying patients at high risk for ruling in acute myocardial infarction (AMI) in the appropriate clinical context. Repeat troponin testing 1-3 hours after the initial sample may be helpful in assessing for ongoing myocardial injury. Troponin elevations can be seen in several other non-infarct conditions, and the change (delta) should be evaluated in line with the 4th [place] Definition of AMI. Troponin baseline and serial elevation for a significant delta should be interpreted with clinical presentation, history, signs and symptoms, ECG, and biomarker concentrations. For inpatient setting: Value <12ng/L is considered negative for all genders. 0-1hr: A delta change of <3 will be considered negative/flat if chest pain onset >3 hours 0-3hr: A delta change of <7 will be considered negative/flat Blood Structure of peripheral vein / Unknown Venipuncture / Unknown 11/17/2024 10:10 PM EDT 11/17/2024 10:13 PM EDT us Rosette Franklin MD LAB BLOOD ORDERABLES Final Resu lt [facility] [address] [place] [address], [place] * (ABNORMAL) Microscopic Urinalysis Only (11/17/2024 8:50 PM EDT) WBC, Urine 15-20(A) 0-2, None Seen /HPF [facility] 11/17/2024 9:55 PM EDT [facility] RBC, Urine Too Numerous To Count(A) 0-2, None Seen /HPF [facility] 11/17/2024 9:55 PM EDT [facility] Bacteria, Urine 1+(A) None Seen /HPF [facility] 11/17/2024 9:55 PM EDT [facility] Squamous Epithelial Cells, Urine Moderate /HPF [facility] 11/17/2024 9:55 PM EDT [facility] Trichomonas, Urine Present(A) None Seen /HPF [facility] 11/17/2024 9:55 PM EDT [facility] Urine Urine specimen collection, clean catch / Unknown Non-Blood Collection / Unknown 11/17/2024 8:50 PM EDT 11/17/2024 8:55 PM EDT us Rosette Franklin MD LAB URINE ORDERABLES Final Resu lt [facility] [address] [place] [id number], [place] * (ABNORMAL) Urinalysis W/Reflex to Microscopic & Culture (11/17/2024 8:50 PM EDT) Color, Urine Yellow Yellow 11/17/2024 9:36 PM EDT [facility] Clarity, Urine Clear Clear 11/17/2024 9:36 PM EDT [facility] Specific [place], Urine 1.015 1.005 - 1.030 11/17/2024 9:36 PM EDT [facility] pH, Urine 7.0 5.0 - 8.0 11/17/2024 9:36 PM EDT [facility] Protein, Urine 30(A) Negative mg/dL 11/17/2024 9:36 PM EDT [facility] Glucose, Urine Negative Negative mg/dL 11/17/2024 9:36 PM EDT [facility] Ketones, Urine Negative Negative mg/dL 11/17/2024 9:36 PM EDT [facility] Bilirubin, Urine Negative Negative 11/17/2024 9:36 PM EDT [facility] Blood, Urine Large(A) Negative 11/17/2024 9:36 PM EDT [facility] Nitrite, Urine Negative Negative 11/17/2024 9:36 PM EDT [facility] Urobilinogen , Urine 0.2 0.2, 1.0 E.U./dL 11/17/2024 9:36 PM EDT [facility] Leukocyte Esterase, Urine Moderate(A) Negative 11/17/2024 9:36 PM EDT [facility] Urine Urine specimen collection, clean catch / Unknown Non-Blood Collection / Unknown 11/17/2024 8:50 PM EDT 11/17/2024 8:55 PM EDT Narrative [facility] - 11/17/2024 9:36 PM EDT Some urinalysis results will not meet the criteria for reflex urine culture although certain urine values may be abnormal. ??Additional testing can be ordered by the provider if clinically warranted. us Rosette Franklin MD LAB URINE ORDERABLES Final Resu lt [facility] [address] [place] [address], [place] * CT Head WO Contrast (11/17/2024 6:33 PM EDT) Anatomical Region Laterality Modality Head and Neck Computed Tomogra phy 11/17/2024 6:40 PM EDT Impressions 11/17/2024 6:42 PM EDT No acute intracranial abnormalities. If this radiology report contains a blank impression section, it is an incomplete radiology report. ??Please contact the interpreting radiologist or applicable radiology division as soon as possible to obtain the completed interpretation. ? Workstation ID: [id number] Up-to-date CT equipment and radiation dose reduction techniques were employed. CTDIvol: 45.8 mGy. DLP: 834 mGy-cm. Narrative 11/17/2024 6:42 PM EDT EXAMINATION: CT of head without contrast TECHNIQUE: CT of the head performed without intravenous contrast. Multiplanar reformats created. CLINICAL INFORMATION: Seizure. COMPARISON: There are no prior studies available at this time. FINDINGS: CT HEAD: ? There is no evidence for acute intracranial bleed or acute infarction. ??No extra axial fluid collection, mass, or midline shift is seen. ??The ventricles are normal in shape and caliber. ??The visualized paranasal sinuses and mastoid air cells are well aerated. There are no osseous lesions or fractures. Resulting Agency Comment [id number] Procedure Note Charleen Zhang MD - 11/17/2024 EXAMINATION: CT of head without contrast TECHNIQUE: CT of the head performed without intravenous contrast. Multiplanarreformats created. CLINICAL INFORMATION: Seizure. COMPARISON: There are no prior studies available at this time. FINDINGS: CT HEAD: There is no evidence for acute intracranial bleed or acuteinfarction. No extra axial fluid collection, mass, or midline shift isseen. The ventricles are normal in shape and caliber. The visualizedparanasal sinuses and mastoid air cells are well aerated. There are noosseous lesions or fractures. IMPRESSION: No acute intracranial abnormalities. If this radiology report contains a blank impression section, it is anincomplete radiology report. Please contact the interpreting radiologistor applicable radiology division as soon as possible to obtain thecompleted interpretation. Workstation ID: [id number] Up-to-date CT equipment and radiation dose reduction techniques wereemployed. CTDIvol: 45.8 mGy. DLP: 834 mGy-cm. us Rosette Franklin MD IM CT PROCEDURES Final Result * (ABNORMAL) CBC Auto Differential (11/17/2024 6:23 PM EDT) [facility] WBC 8.8 3.8 - 10.8 10*3/uL 11/17/2024 6:37 PM EDT [facility] RBC 4.68 3.80 - 5.10 10*6/uL 11/17/2024 6:37 PM EDT [facility] Hemoglobin 11.7 11.7 - 15.5 g/dL 11/17/2024 6:37 PM EDT [facility] Hematocrit 36.3 35.0 - 45.0 % 11/17/2024 6:37 PM EDT [facility] MCV 77.6(L) 80.0 - 100.0 fL 11/17/2024 6:37 PM EDT [facility] MCH 25.0(L) 27.0 - 33.0 pg 11/17/2024 6:37 PM EDT [facility] MCHC 32.2 32.0 - 36.0 g/dL 11/17/2024 6:37 PM EDT [facility] RDW 15.2(H) 11.0 - 15.0 % 11/17/2024 6:37 PM EDT [facility] Platelets 297 140 - 400 10*3/uL 11/17/2024 6:37 PM EDT [facility] MPV 10.4 7.5 - 12.5 fL 11/17/2024 6:37 PM EDT [facility] Neutrophil % 65.5 % 11/17/2024 6:37 PM EDT [facility] Immature Grans % 0.3 0.0 - 0.9 % 11/17/2024 6:37 PM EDT [facility] Lymphocyte % 25.0 % 11/17/2024 6:37 PM EDT [facility] Monocyte % 5.7 % 11/17/2024 6:37 PM EDT [facility] Eosinophil % 2.7 % 11/17/2024 6:37 PM EDT [facility] Basophil % 0.8 % 11/17/2024 6:37 PM EDT [facility] Neutrophil # 5.75 1.50 - 7.80 10*3/uL 11/17/2024 6:37 PM EDT [facility] Immature Grans # 0.03 <=0.03 10*3/uL 11/17/2024 6:37 PM EDT [facility] Lymphocyte # 2.20 0.85 - 3.90 10*3/uL 11/17/2024 6:37 PM EDT [facility] Monocyte # 0.50 0.20 - 0.95 10*3/uL 11/17/2024 6:37 PM EDT [facility] Eosinophil # 0.20 0.02 - 0.50 10*3/uL 11/17/2024 6:37 PM EDT [facility] Basophil # 0.10 0.00 - 0.20 10*3/uL 11/17/2024 6:37 PM EDT [facility] nRBC % 0.0 /100 WBCs 11/17/2024 6:37 PM EDT [facility] nRBC # <0.01 <0.01 10*3/uL 11/17/2024 6:37 PM EDT [facility] Blood Structure of peripheral vein / Unknown Venipuncture / Unknown 11/17/2024 6:23 PM EDT 11/17/2024 6:34 PM EDT Rosette Franklin MD LAB BLOOD ORDERABLES Final Resu lt Performing Organization Address [facility] Co de Phone Number [address] [address], [place] * hCG, Qualitative, Serum (11/17/2024 6:23 PM EDT) HCG Qualitative, Serum Negative Negative [facility] 11/17/2024 6:59 PM EDT [facility] Comment: hCG may be negative in early . ??Suggest repeat testing in 2-4 days if clinically indicated. ??The results of this test should be interpreted with the patient's clinical presentation. Blood Structure of peripheral vein / Unknown Venipuncture / Unknown 11/17/2024 6:23 PM EDT 11/17/2024 6:34 PM EDT Rosette Franklin MD LAB BLOOD ORDERABLES Final Resu lt Performing Organization Address City/[facility]/ZIP Co de Phone Number [facility] [address] [place] [id number], [place] * Magnesium (11/17/2024 6:23 PM EDT) MG 2.0 1.6 - 2.4 mg/dL 11/17/2024 7:07 PM EDT [facility] Blood Structure of peripheral vein / Unknown Venipuncture / Unknown 11/17/2024 6:23 PM EDT 11/17/2024 6:34 PM EDT us Rosette Franklin MD LAB BLOOD ORDERABLES Final Resu lt [facility] [employer] [facility] [address] [place] [address], [place] * BMP - Basic Metabolic Panel (11/17/2024 6:23 PM EDT) NA 137 135 - 145 mmol/L 11/17/2024 7:07 PM EDT [facility] K 3.9 3.5 - 5.3 mmol/L 11/17/2024 7:07 PM EDT [facility] Cl 101 98 - 107 mmol/L 11/17/2024 7:07 PM EDT [facility] CO2 23 22 - 32 mmol/L 11/17/2024 7:07 PM EDT [facility] BUN 17 7 - 23 mg/dL 11/17/2024 7:07 PM EDT [facility] Creatinine 0.76 0.50 - 1.20 mg/dL 11/17/2024 7:07 PM EDT [facility] Glucose 91 65 - 99 mg/dL 11/17/2024 7:07 PM EDT [facility] Calcium 9.1 8.6 - 10.5 mg/dL 11/17/2024 7:07 PM EDT [facility] Anion Gap 13 5 - 15 11/17/2024 7:07 PM EDT [facility] eGFR >90 >=60 mL/min/1. 73m2 11/17/2024 7:07 PM EDT [facility] Comment:The estimated glomer ular filtration rate (eGFR) is calculated using a new formula developed by the NKF-ASN task force to eliminate race-based correction factors. The new formula uses serum/plasma creatinine, age, and gender to determine eGFR. A value below 60mls/min might indicate kidney disease and will be flagged. For additional information, see Annita et al, Am J Kidney Dis. 2021;79(2):268- 288, A Unifying Approach for GFR estimation: Recommendations of the NKF-ASN Task Force on Reassessing the Inclusion of Race in Diagnosing Kidney Disease . Blood Structure of peripheral vein / Unknown Venipuncture / Unknown 11/17/2024 6:23 PM EDT 11/17/2024 6:34 PM EDT us Rosette Franklin MD LAB BLOOD ORDERABLES Final Resu lt [facility] [address] [place] [address], [place] from Last 3 Months Insurance [facility] [employer] Care Teams Director Economic Relationship Specialty Start Date End Date Patient, Has No Pcp Or Ref DO NOT EDIT THIS RECORD VIA PROVIDER ON THE FLY PCP - General Product Safety Test Engineer 11/17/24
--- OUTSIDE RECORDS SUMMARY | 2024-11-21 18:44 | XMS_ITS | Referral Summary ---
Author Organization [facility] Address [address] [place] [address] Care Team Providers Care Cardiovascular Radiologic Technologist Name Role Phone Patient, Has No Pcp Or Ref Primary Care Provider Unavailable Encounters Date Type Department Care Team Description 11/17/2024 5:48 PM EDT - 11/18/2024 12:23 AM EDT Emergency [facility] [address] [place] [address] Rosette Franklin MD Seizure-like activity (HCC) (Primary Dx) Discharge Disposition: Home or Self Care (01) from Last 3 Months Allergies Active Allergy Reactions Criticality Noted Date Comments Escitalopram Oxalate Vomiting 11/17/2024 Lorazepam Hives 11/17/2024 Penicillins Hives 11/17/2024 Medications amLODIPine (NORVASC) 10 mg tablet Take 10 mg by mouth once a day. Active Social History Tobacco Use Types Packs/Day Years [...] Mass Index - - Plan of Treatment Not on file Procedures * Due to [place] state law, this organization might not be [...] Last 3 Months Results * Due to [place] [employer] law, this organization might not be sharing [...] obtain the completed interpretation. ? Workstation ID: [id number] Narrative 11/17/2024 11:12 PM EDT INDICATION: 29 years Female who presents with/for Fatigue and malaise TECHNIQUE: Single view of the chest COMPARISON: None FINDINGS: Lines/Tubes/Support: Telemetry leads. Mediastinum: Cardiomediastinal silhouette is without acute findings. Trachea appears midline. Lungs/Pleura: Symmetrically inflated without focal consolidation, significant pleural effusion, or sizable pneumothorax. Musculoskeletal: No displaced fractures. Abdomen: No acute findings. Resulting Agency Comment [id number] Procedure Note Marco A Gonzalez MD - [...] possible to obtain thecompleted interpretation. Workstation ID: [id number] us Rosette Franklin MD IMG XR PROCEDURES Final Result * Repeat Troponin #1 (11/17/2024 10:10 PM EDT) Only the most recent of2 resultswithin the time period is included. Pathologist [facility] Troponin T High Sensitivity <6 <=13 ng/L 11/17/2024 10:37 PM EDT [facility] Comment: Qa-Ergvjumm-W level of 52 ng/L or higher at [...] be evaluated in line with the 4th [place] Definition of AMI. Troponin baseline and serial [...] MD LAB BLOOD ORDERABLES Final Resu lt [facility] [address] [place] [address], * (ABNORMAL) Microscopic Urinalysis Only (11/17/2024 8:50 PM EDT) WBC, Urine 15-20(A) 0-2, None Seen /HPF [facility] MANUAL 11/17/2024 9:55 PM EDT [facility] RBC, Urine Too Numerous To Count(A) 0-2, None Seen /HPF [facility] MANUAL 11/17/2024 9:55 PM EDT [facility] Bacteria, Urine 1+(A) None Seen /HPF [facility] MANUAL 11/17/2024 9:55 PM EDT [facility] Squamous Epithelial Cells, Urine Moderate /HPF [facility] MANUAL 11/17/2024 9:55 PM EDT [facility] Trichomonas, Urine Present(A) None Seen /HPF [facility] MANUAL 11/17/2024 9:55 PM EDT [facility] Urine Urine specimen collection, clean catch / Unknown Non-Blood Collection / Unknown 11/17/2024 8:50 PM EDT 11/17/2024 8:55 PM EDT us Rosette Franklin MD LAB URINE ORDERABLES Final Resu lt [facility] [address] [place] [address], [place] * (ABNORMAL) Urinalysis W/Reflex to Microscopic & Culture (11/17/2024 8:50 PM EDT) Color, Urine Yellow Yellow 11/17/2024 9:36 PM EDT [facility] Clarity, Urine Clear Clear 11/17/2024 9:36 PM EDT [facility] Specific [place], Urine 1.015 1.005 - 1.030 11/17/2024 9:36 PM EDT [facility] pH, Urine 7.0 5.0 - 8.0 11/17/2024 9:36 PM EDT [facility] Protein, Urine 30(A) Negative mg/dL 11/17/2024 9:36 PM EDT [facility] Glucose, Urine Negative Negative mg/dL 11/17/2024 9:36 PM EDT [facility] Ketones, Urine Negative Negative mg/dL 11/17/2024 9:36 PM EDT [facility] Bilirubin, Urine Negative Negative 11/17/2024 9:36 PM EDT [facility] Blood, Urine Large(A) Negative 11/17/2024 9:36 PM EDT [facility] Nitrite, Urine Negative Negative 11/17/2024 9:36 PM EDT [facility] Urobilinogen , Urine 0.2 0.2, 1.0 E.U./dL 11/17/2024 9:36 PM EDT [facility] Leukocyte Esterase, Urine Moderate(A) Negative 11/17/2024 9:36 PM EDT [facility] Urine Urine specimen collection, clean catch / Unknown Non-Blood Collection / Unknown 11/17/2024 8:50 PM EDT 11/17/2024 8:55 PM EDT Narrative [facility] - 11/17/2024 9:36 PM EDT Some urinalysis results will not meet the criteria for reflex urine culture although certain urine values may be abnormal. ??Additional testing can be ordered by the provider if clinically warranted. us Rosette Franklin MD LAB URINE ORDERABLES Final Resu lt [facility] [address] [place] [address], [place] * CT Head WO Contrast (11/17/2024 [...] obtain the completed interpretation. ? Workstation ID: [id number] Up-to-date CT equipment and radiation dose reduction [...] osseous lesions or fractures. Resulting Agency Comment [id number] Procedure Note Charleen Zhang MD - 11/17/2024 [...] possible to obtain thecompleted interpretation. Workstation ID: [id number] Up-to-date CT equipment and radiation dose reduction techniques wereemployed. CTDIvol: 45.8 mGy. DLP: 834 mGy-cm. Rosette Franklin MD IM CT PROCEDURES Final Result * (ABNORMAL) CBC Auto Differential (11/17/2024 6:23 PM EDT) Pathologist [facility] WBC 8.8 3.8 - 10.8 10*3/uL 11/17/2024 6:37 PM EDT [facility] RBC 4.68 3.80 - 5.10 10*6/uL 11/17/2024 6:37 PM EDT [facility] Hemoglobin 11.7 11.7 - 15.5 g/dL 11/17/2024 6:37 PM EDT [facility] Hematocrit 36.3 35.0 - 45.0 [...] - 7.80 10*3/uL 11/17/2024 6:37 PM EDT [facility] Immature Grans # 0.03 <=0.03 10*3/uL 11/17/2024 6:37 PM EDT [facility] Lymphocyte # 2.20 0.85 - 3.90 10*3/uL 11/17/2024 6:37 PM EDT [facility] Monocyte # 0.50 0.20 - 0.95 10*3/uL 11/17/2024 6:37 PM EDT [facility] Eosinophil # 0.20 0.02 - 0.50 10*3/uL 11/17/2024 6:37 PM EDT [facility] Basophil # 0.10 0.00 - 0.20 10*3/uL 11/17/2024 6:37 PM EDT [facility] nRBC % 0.0 /100 WBCs 11/17/2024 6:37 PM EDT [facility] nRBC # <0.01 <0.01 10*3/uL 11/17/2024 6:37 PM EDT [facility] Blood Structure of peripheral vein / Unknown Venipuncture / Unknown 11/17/2024 6:23 PM EDT 11/17/2024 6:34 PM EDT us Rosette Franklin MD LAB BLOOD ORDERABLES Final Resu lt [facility] [address] [place] [address], [place] * hCG, Qualitative, Serum (11/17/2024 6:23 PM EDT) HCG Qualitative, Serum Negative Negative [place] MANUAL 11/17/2024 6:59 PM EDT [facility] Comment: hCG may [...] ORDERABLES Final Resu lt Performing Organization Address City/[facility]/ZIP Co de Phone Number [facility] [address] [place] [phone], * Magnesium (11/17/2024 6:23 PM EDT) MG 2.0 1.6 - 2.4 mg/dL 11/17/2024 7:07 PM EDT [facility] Blood Structure of peripheral vein / Unknown Venipuncture / Unknown 11/17/2024 6:23 PM EDT 11/17/2024 6:34 PM EDT us Rosette Franklin MD LAB BLOOD ORDERABLES Final Resu lt Performing Organization Address City/[facility]/ZIP Co de Phone Number [facility] [address] [place] [id number], [place] * BMP - Basic Metabolic Panel (11/17/2024 6:23 PM EDT) NA 137 135 - 145 mmol/L 11/17/2024 7:07 PM EDT [facility] K 3.9 3.5 - 5.3 mmol/L 11/17/2024 7:07 PM EDT [facility] Cl 101 98 - 107 mmol/L 11/17/2024 7:07 PM EDT [facility] CO2 23 22 - 32 mmol/L 11/17/2024 7:07 PM EDT [facility] BUN 17 7 - 23 mg/dL 11/17/2024 7:07 PM EDT [facility] Creatinine 0.76 0.50 - 1.20 mg/dL 11/17/2024 7:07 PM EDT [facility] Glucose 91 65 - 99 mg/dL 11/17/2024 7:07 PM EDT [facility] Calcium 9.1 8.6 - 10.5 mg/dL 11/17/2024 7:07 PM EDT [facility] Anion Gap 13 5 - 15 11/17/2024 7:07 PM EDT [facility] eGFR >90 >=60 mL/min/1. 73m2 11/17/2024 7:07 PM EDT [facility] Comment:The estimated glomer ular filtration rate (eGFR) is calculated using a new formula developed by the NKF-ASN task force to eliminate race-based correction factors. The new formula uses serum/plasma creatinine, age, and gender to determine eGFR. A value below 60mls/min might indicate kidney disease and will be flagged. For additional information, see Ariza et al, Am J Kidney Dis. 2021;79(2):268- 288, A Unifying Approach for GFR estimation: Recommendations of the NKF-ASN Task Force on Reassessing the Inclusion of Race in Diagnosing Kidney Disease . Blood Structure of peripheral vein / Unknown Venipuncture / Unknown 11/17/2024 6:23 PM EDT 11/17/2024 6:34 PM EDT us Rosette Franklin MD LAB BLOOD ORDERABLES Final Resu lt [facility] [address] [phone], from Last 3 Months Insurance [facility] [employer] Care Teams Cardiovascular Radiologic Technologist Relationship Specialty Start Date End Date Patient, Has No Pcp Or Ref DO NOT EDIT THIS RECORD VIA PROVIDER ON THE FLY PCP - General Carpet Installer Helper 11/17/24
--- OUTSIDE RECORDS SUMMARY | 2024-11-21 18:44 | XMS_ITS | Encounter Summary ---
Author Organization [facility] Address [address] [place] [address] Care Team Providers Care Housekeeping/Laundry Name Role Phone Patient, Has No Pcp Or Ref Primary Care Provider Unavailable Reason for Visit * Reason Comments Seizure Encounter Details Date Type Department Care Team (Late st Contact Info) Description 11/17/2024 5:48 PM EDT - 11/18/2024 12:23 AM EDT Emergency [facility] Emergency Department [address] [place] [address] Rosette Franklin MD [address] [place] [id number] Seizure-like activity (HCC) (Primary Dx) Discharge Disposition: Home or Self Care (01) Social History Tobacco Use Types Packs/Day Years Used Date Smoking Tobacco: Never Assessed Comments Unknown Sex and Gender Information Value Date Recorded Sex Assigned at Not on file Legal Sex Female 5:47 PM EDT Gender Identity Not on file Sexual Orientation Not on file documented as of this encounter Last Filed Vital Signs Vital Sign Reading Time Taken Comments Blood Pressure 136/93 11/17/2024 6:01 PM EDT Pulse 65 11/17/2024 8:45 PM EDT Temperature 37 ??C (98.6 ??F) 11/17/2024 6:08 PM EDT Respiratory Rate 19 11/17/2024 8:45 PM EDT Oxygen Saturation 99% 11/17/2024 8:45 PM EDT Inhaled Oxygen Concentration - - Weight - - Height - - Body Mass Index - - documented in this encounter Discharge Instructions * Discharge Instructions* Rosette Franklin MD - 11/17/2024 11:00 PM EDT You were seen in the emergency department for shaking episodes. It is unclear if these episodes aretrue seizures called epileptic seizures or nonepileptic seizures. Please follow-up with neurology at your appointment next week. Do not drive, swim in open water, or take a bath in the bathtub until you are cleared by neurology to do so. Take Tylenol and ibuprofen for pain. Return to the emergency department if you have any concerns. Le atendieron en urgencias por episodios de temblores. No est?? tamika si estos episodios son verdaderas convulsiones llamadas crisis epil??pticas o crisis no epil??pticas. Por favor flavia un seguimiento con neurolog??a en [facility] la pr??xima semana. No conduzca, nade en rajeev abiertas ni se ba??e enla ba??era hasta que [facility]a le autorice a hacerlo. Purdin Tylenol e ibuprofeno para el dolor.Regrese al departamento de emergencias si tiene alguna inquietud. documented in this encounter Medications at Time of Discharge amLODIPine (NORVASC) 10 mg tablet Take 10 mg by mouth once a day. documented as of this encounter ED Notes * Rosette Franklin MD - 11/17/2024 5:47 PM EDT History HPI: No chief complaint on file. HPI 29-year-old Chinese-speaking female with history of hyperthyroidism presenting to the emergency department with seizure. Reportedly had seizure-like activity at home. EMS witnessed an approximately 1.5-minute seizure and gave 2 mg of IM Versed. Patient reports history of seizures which she has had several times was never seen a neurologist and is not on any antiepileptics. Does note she has a neurology appointment at [facility] next week. Notes that she lives closer to [facility] but was here visiting family) takes amlodipine and propranolol for her hyperthyroidism. Says that she was taken off her other thyroid medications when she was . Infant is now 3 months old. She is not breast-feeding. Complaining of left-sided chest pain that started after her seizure. Patient History No past medical history on file. No past surgical history on file. No family history on file. Sexuality and Gender Identity Sexuality Legal Information Legal first name: Dain Legal last name: Omar Legal sex: Female Gender Identity Organ Inventory Organs the patient currently has: Organs present at or expected at to develop: Organs surgically enhanced or constructed: Organs hormonally enhanced or developed: breasts cervix ovaries uterus vagina penis prostate testes Review of Systems REVIEW OF SYSTEMS: Physical Exam Physical Exam ED Triage Vitals Temp Pulse Resp BP SpO2 -- -- -- -- -- Temp src Heart Rate Source Patient Position BP Location Set FiO2 (O2%) -- -- -- -- -- Physical Exam Vitals and nursing note reviewed. Constitutional: General: She is not in acute distress. Appearance: She is not ill-appearing. HENT: Head: Normocephalic and atraumatic. Nose: Nose normal. No congestion or rhinorrhea. Mouth/Throat: Mouth: Mucous membranes are moist. Pharynx: Oropharynx is clear. Eyes: Extraocular Movements: Extraocular movements intact. Conjunctiva/sclera: Conjunctivae normal. Comments: Pupils 4 mm and reactive Cardiovascular: Rate and Rhythm: Normal rate and regular rhythm. Pulses: Normal pulses. Heart sounds: Normal heart sounds. Pulmonary: Effort: Pulmonary effort is normal. No respiratory distress. Breath sounds: Normal breath sounds. No wheezing. Abdominal: General: Abdomen is flat. There is no distension. Tenderness: There is no abdominal tenderness. There is no guarding. Musculoskeletal: General: No swelling or tenderness. Cervical back: Normal range of motion. No rigidity. Right lower leg: No edema. Left lower leg: No edema. Skin: General: Skin is warm and dry. Coloration: Skin is not pale. Neurological: Mental Status: She is alert. Motor: No weakness. Coordination: Coordination normal. Comments: Drowsy but answering questions appropriately, following commands, moving all extremities. Psychiatric: Mood and Affect: Mood normal. Behavior: Behavior normal. Medical Decision Making and ED Course [facility] ED Course as of 11/17/24 2247 Sun Nov 17, 2024 215 Blood, Urine(!): Large On menstrual cycle [] 2224 Troponin T High Sensitivity: <6 [AH] ED Course User Index [AH] Rosette Franklin MD 29-year-old Chinese-speaking female with history of hyperthyroidism presenting to the emergency department with seizure. Due to patient being from out of the area I did not have any records on her. She does not have any tachycardia or significant hypertension that would be concerning for thyroid storm. I spoke at length with patient's spouse. It sounds as if she has been evaluated at [facility] multiple times for these episodes. He informing that she has done 24-hour EEG monitoring where she is having to her shaking episodes that were witnessed by her neurologist and was told that she was not having any seizure activity on the EEG. They have never started her on medications. She does have close follow-up with neurology. Given this I suspect that these episodes are nonepileptic and I would hesitate to start her on medications here in the emergency department. While she is then somewhat sleepy she is easily arousable to voice and answers all questions appropriately. She is not altered. Labs here are all reassuring. She does have blood in her urine though is on her menstrual cycle. ECG: Sinus rhythm rate of 68 with normal axis and intervals. Borderline LVH. No ST or T wave changes consistent with acute ischemia. No prior. Dain Nelson : 1995 CSN: [id number] Rosette Franklin MD 11/17/24 2258 documented in this encounter Miscellaneous Notes * Emergency Department Information Exchange - SHERIN - Sherin Interface - 11/17/2024 6:31 PM EDT [facility] NOTIFICATION 11/17/2024 17:48 DAIN NELSON : 1995 [facility]'s patient encounter information: MRN:?[id number] Account Number:?[id number] Billing Account Number:?[id number] Criteria Met High-UtilizersStandard: 6 ED visits within 6 months Traveling Patients Standard: 3 Different EDs within 90 days Security and Safety No Security Events were found. ED Care Guidelines There are currently no ED Care Guidelines for this patient. Please check your facility's medical records system. Prescription Drug Data No Prescription Drug Data was found. E.D. Visit Count (12 mo.) Facility Visits [facility] 11 [facility] 3 [facility] 1 Total 15 Note: Visits indicate total known visits. Recent Emergency Department Visit Summary Showing 10 most recent visits out of 15 in the past 12 months Date Facility City State Type Diagnoses or Chief Complaint Nov 17, 2024 [facility] [place] Emergency Seizure Oct 20, 2024 [facility] Emergency Chief Complaint: [place] dope heater needed diff breathing Oct 17, 2024 [facility] Emergency 1. Trichomoniasis, unspecified 1. Pelvic and perineal pain 2. Influenza due to other identified influenza virus with other respiratory manifestations 3. Unspecified convulsions 4. Acculturation difficulty 5. 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 Influenza due to unidentified influenza virus with other respiratory manifestations Oct 12, 2024 [facility] Emergency 99. Unspecified convulsions Oct 09, 2024 [facility] Emergency Chief Complaint: SZ Oct 07, 2024 [facility] Emergency 2. Other chest pain 3. Essential (primary) hypertension 4. 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 Migraine, unspecified, not intractable, without status migrainosus 6. 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 Encounter for screening for COVID-19 99. Syncope and collapse 99. Chest pain, unspecified Oct 02, 2024 [facility] Emergency 2. Dizziness and giddiness 4. Unspecified pre-eclampsia, complicating the puerperium 5. Acculturation difficulty 6. Encounter for screening for COVID-19 7. Shortness of breath 8. 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 Chest pain, unspecified 99. Nausea Sep 17, 2024 [facility] Emergency 1. Infection of bladder following delivery 3. Endocrine, nutritional and metabolic diseases complicating the puerperium 5. Other complications of the puerperium, not elsewhere classified 7. Headache, unspecified 8. Bradycardia, unspecified 9. Encounter for screening for COVID-19 10. Acculturation difficulty 99. Dehydration 99. Syncope and collapse 99. Dizziness and giddiness Sep 13, 2024 [facility] [place] Emergency 1. Other chest pain 2. Nausea with vomiting, unspecified 3. Diarrhea, unspecified 5. Abnormal uterine and vaginal bleeding, unspecified 6. 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 Encounter for screening for COVID-19 99. Vomiting, unspecified 99. Syncope and collapse Jun 05, 2024 [facility] [place] Emergency 99. Other specified health status 99. Headache, unspecified 99. Unspecified pre-existing hypertension complicating , unspecified trimester Recent Inpatient Visit Summary Date Facility [facility] Type Diagnoses or Chief Complaint Oct 10, 2024 [facility] [place] General Medicine Aug 15, 2024 [facility] [place] Obstetric[facility] 99. Severe pre-eclampsia, third trimester 99. Insomnia, unspecified 99. Encounter for routine follow-up 99. Severe pre-eclampsia, unspecified trimester 99. Chest pain, unspecified 99. Other specified health status 99. 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 Encounter for other general counseling and advice on contraception 99. Streptococcus B carrier state complicating 99. Unspecified pre-existing hypertension complicating , unspecified trimester Jul 29, 2024 [facility] [place] [facility] 99. Encounter for other general counseling and advice on contraception 99. Depression, unspecified 99. Supervision of with other poor reproductive or obstetric history, unspecified trimester 99. Unspecified pre-existing hypertension complicating , unspecified trimester 99. Urinary tract infection, site not specified 99. Headache, unspecified 99. Anemia complicating , unspecified trimester 99. Prediabetes 99. Other specified health status 99. History of uterine scar from previous surgery [facility] [place] [facility] 99. Urinary tract infection, site not specified 99. Encounter for other general counseling and advice on contraception 99. Other seizures 99. 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 Depression, unspecified 99. Unspecified pre-existing hypertension complicating , unspecified trimester 99. Other specified health status 99. Family history of other infectious and parasitic diseases 99. Anemia complicating , unspecified trimester 99. Headache, unspecified May 30, 2024 [facility] Elinor [place] Obstetrics 99. Other specified health status 99. Family history of other infectious and parasitic diseases 99. History of uterine scar from previous surgery 99. Depression, unspecified 99. Anemia, unspecified 99. Unspecified maternal hypertension, unspecified trimester 99. Other seizures 99. Urinary tract infection, site not specified 99. Supervision of with other poor reproductive or obstetric history, unspecified trimester 99. Personal history of other specified conditions Care Team Provider Specialty Phone Fax Service Dates REYNOLD MILLER MD Internal Medicine Current SABRA HESS MD Internal Medicine Current RODGER LOMBARDO MD Internal Medicine Current [address] This patient has registered at the [facility] Emergency Department For more information visit: [email or web address] PLEASE NOTE: 1. Any care recommendations and other clinical information are provided as guidelines or for historical purposes only, and providers should exercise their own clinical judgment when providing care. 2. You may only use this information for purposes of treatment, payment or health care operations activities, and subject to the limitations of applicable [address] Policies. 3. You should consult directly with the organization that provided a care guideline or other clinical history with any questions about additional information or accuracy or completeness of information provided. ? [address] - [employer] documented in this encounter Plan of Treatment Pending Results Name Type Priority Associated Diagnoses Date /Time Urine Culture, Routine Microbiology Routine 11/17/2024 8:50 PM EDT documented as of this encounter Procedures * Due to [place] state law, this organization might not be sharing negative HIV tests. Procedure Name Priority Date/Time Associated Diagnosis Comments XR CHEST 1 VW STAT 11/17/2024 10:36 PM EDT TROPONIN T HIGH SENSITIVITY STAT 11/17/2024 10:10 PM EDT TROPONIN T HIGH SENSITIVITY STAT 11/17/2024 9:18 PM EDT URINALYSIS W/REFLEX TO MICROSCOPIC & CULTURE Routine 11/17/2024 8:50 PM EDT MICROSCOPIC URINALYSIS ONLY Routine 11/17/2024 8:50 PM EDT UA/CULTURE REFLEX Routine 11/17/2024 8:5 0 PM EDT URINE CULTURE, ROUTINE Routine 11/17/2024 8:[address] HEAD WO CONTRAST STAT 11/17/2024 6 :33 PM EDT CBC AUTO DIFFERENTIAL STAT 11/17/2024 6:23 PM EDT HCG, QUALITATIVE, SERUM STAT 11/17/2024 6:23 PM EDT MAGNESIUM STAT 11/17/2024 6:23 PM EDT BASIC METABOLIC PANEL STAT 11/17/2024 6:23 PM EDT documented in this encounter Results * Due to [place] state law, [...] obtain the completed interpretation. ? Workstation ID: [id number] Narrative 11/17/2024 11:12 PM EDT INDICATION: 29 years Female who presents with/for Fatigue and malaise TECHNIQUE: Single view of the chest COMPARISON: None FINDINGS: Lines/Tubes/Support: Telemetry leads. Mediastinum: Cardiomediastinal silhouette is without acute findings. Trachea appears midline. Lungs/Pleura: Symmetrically inflated without focal consolidation, significant pleural effusion, or sizable pneumothorax. Musculoskeletal: No displaced fractures. Abdomen: No acute findings. Resulting Agency Comment [id number] Procedure Note Marco A Gonzalez MD - [...] possible to obtain thecompleted interpretation. Workstation ID: [id number] Rosette Franklin MD IMG XR PROCEDURES Final Result * Repeat Troponin #1 (11/17/2024 10:10 PM EDT) Troponin T High Sensitivity <6 <=13 ng/L 11/17/2024 10:37 PM EDT [facility] Comment: Wv-[id number] level of 52 ng/L or higher at [...] be evaluated in line with the 4th [place] Definition of AMI. Troponin baseline and serial [...] MD LAB BLOOD ORDERABLES Final Resu lt [facility] [address] [place] [address], [place] * Troponin T, High Sensitivity (11/17/2024 9:18 PM EDT) Troponin T High Sensitivity <6 <=13 ng/L 11/17/2024 10:01 PM EDT [facility] Comment: Qn-Ignoozvl-N level of 52 ng/L or higher at [...] be evaluated in line with the 4th [place] Definition of AMI. Troponin baseline and serial [...] vein / Unknown Venipuncture / Unknown 11/17/2024 9:18 PM EDT 11/17/2024 9:33 PM EDT us Rosette Franklin MD LAB BLOOD ORDERABLES Final Resu lt [facility] [address] [place] [id number], [place] * (ABNORMAL) Microscopic Urinalysis Only (11/17/2024 8:50 PM EDT) WBC, Urine 15-20(A) 0-2, None Seen /HPF [facility] MANUAL 11/17/2024 9:55 PM EDT [facility] RBC, Urine Too Numerous To Count(A) 0-2, None Seen /HPF [facility] 11/17/2024 9:55 PM EDT [facility] Bacteria, Urine 1+(A) None Seen /HPF [facility] 11/17/2024 9:55 PM EDT [facility] Squamous Epithelial Cells, Urine Moderate /HPF [facility] MAN[facility] 11/17/2024 9:55 PM EDT [facility] Trichomonas, Urine Present(A) None Seen /HPF [facility] MANUAL 11/17/2024 9:55 PM EDT [facility] Urine Urine specimen collection, clean catch / Unknown Non-Blood Collection / Unknown 11/17/2024 8:50 PM EDT 11/17/2024 8:55 PM EDT us Rosette Franklin MD LAB URINE ORDERABLES Final Resu lt [facility] [address] [place] [id number], [place] * (ABNORMAL) Urinalysis W/Reflex to Microscopic & Culture (11/17/2024 8:50 PM EDT) Color, Urine Yellow Yellow 11/17/2024 9:36 PM EDT [facility] Clarity, Urine Clear Clear 11/17/2024 9:36 PM EDT [facility] Specific W[place], Urine 1.015 1.005 - 1.030 11/17/2024 9:36 PM EDT [facility] pH, Urine 7.0 5.0 - 8.0 11/17/2024 9:36 PM EDT [facility] Protein, Urine 30(A) Negative mg/dL 11/17/2024 9:36 PM EDT [facility] Glucose, Urine Negative Negative mg/dL 11/17/2024 9:36 PM EDT [facility] Ketones, Urine Negative Negative mg/dL 11/17/2024 9:36 PM EDT [facility] Bilirubin, Urine Negative Negative 11/17/2024 9:36 PM EDT [facility] Blood, Urine Large(A) Negative 11/17/2024 9:36 PM EDT [facility] Nitrite, Urine Negative Negative 11/17/2024 9:36 PM EDT [facility] Urobilinogen , Urine 0.2 0.2, 1.0 E.U./dL 11/17/2024 9:36 PM EDT [facility] Leukocyte Esterase, Urine Moderate(A) Negative 11/17/2024 9:36 PM EDT [facility] Urine Urine specimen collection, clean catch / Unknown Non-Blood Collection / Unknown 11/17/2024 8:50 PM EDT 11/17/2024 8:55 PM EDT [facility] - 11/17/2024 9:36 PM EDT Some urinalysis results will not meet the criteria for reflex urine culture although certain urine values may be abnormal. ??Additional testing can be ordered by the provider if clinically warranted. us Rosette Franklin MD LAB URINE ORDERABLES Final Resu lt [facility] [address] [place] [address], [place] * CT Head WO Contrast (11/17/2024 [...] obtain the completed interpretation. ? Workstation ID: [id number] Up-to-date CT equipment and radiation dose reduction [...] osseous lesions or fractures. Resulting Agency Comment [id number] Procedure Note Charleen Zhang MD - 11/17/2024 [...] possible to obtain thecompleted interpretation. Workstation ID: [id number] Up-to-date CT equipment and radiation dose reduction techniques wereemployed. CTDIvol: 45.8 mGy. DLP: 834 mGy-cm. us Rosette Franklin MD IMG CT PROCEDURES Final Result * hCG, Qualitative, Serum (11/17/2024 6:23 PM EDT) HCG Qualitative, Serum Negative Negative [facility] 11/17/2024 6:59 PM EDT [facility] Comment: hCG may be negative in early . ??Suggest repeat testing in 2-4 days if clinically indicated. ??The results of this test should be interpreted with the patient's clinical presentation. Blood Structure of peripheral vein / Unknown Venipuncture / Unknown 11/17/2024 6:23 PM EDT 11/17/2024 6:34 PM EDT us Rosette Franklin MD LAB BLOOD ORDERABLES Final Resu lt Performing Organization Address [facility] Co de Phone Number [facility] [address] [place] [phone], * Magnesium (11/17/2024 6:23 PM EDT) MG 2.0 1.6 - 2.4 mg/dL 11/17/2024 7:07 PM EDT [facility] Blood Structure of peripheral vein / Unknown Venipuncture / Unknown 11/17/2024 6:23 PM EDT 11/17/2024 6:34 PM EDT us Rosette Franklin MD LAB BLOOD ORDERABLES Final Resu lt [facility] [address] [place] [address], [place] * BMP - Basic Metabolic Panel (11/17/2024 6:23 PM EDT) NA 137 135 - 145 mmol/L 11/17/2024 7:07 PM EDT [facility] K 3.9 3.5 - 5.3 mmol/L 11/17/2024 7:07 PM EDT [facility] Cl 101 98 - 107 mmol/L 11/17/2024 7:07 PM EDT [facility] CO2 23 22 - 32 mmol/L 11/17/2024 7:07 PM EDT [facility] BUN 17 7 - 23 mg/dL 11/17/2024 7:07 PM EDT [facility] Creatinine 0.76 0.50 - 1.20 mg/dL 11/17/2024 7:07 PM EDT [facility] Glucose 91 65 - 99 mg/dL 11/17/2024 7:07 PM EDT [facility] Calcium 9.1 8.6 - 10.5 mg/dL 11/17/2024 7:07 PM EDT [facility] Anion Gap 13 5 - 15 11/17/2024 7:07 PM EDT [facility] eGFR >90 >=60 mL/min/1. 73m2 11/17/2024 7:07 PM EDT [facility] Comment:The estimated glomer ular filtration rate [...] MD LAB BLOOD ORDERABLES Final Resu lt [facility] [address] [place] [address], * (ABNORMAL) CBC Auto Differential (11/17/2024 6:23 PM EDT) WBC 8.8 3.8 - 10.8 10*3/uL 11/17/2024 6:37 PM EDT [facility] RBC 4.68 3.80 - 5.10 10*6/uL 11/17/2024 6:37 PM EDT [facility] Hemoglobin 11.7 11.7 - 15.5 g/dL 11/17/2024 6:37 PM EDT [facility] Hematocrit 36.3 35.0 - 45.0 % 11/17/2024 6:37 PM EDT [facility] MCV 77.6(L) 80.0 - 100.0 fL 11/17/2024 6:37 PM EDT [facility] MCH 25.0(L) 27.0 [...] - 0.95 10*3/uL 11/17/2024 6:37 PM EDT [facility] Eosinophil # 0.20 0.02 - 0.50 10*3/uL 11/17/2024 6:37 PM EDT [facility] Basophil # 0.10 0.00 - 0.20 10*3/uL 11/17/2024 6:37 PM EDT [facility] nRBC % 0.0 /100 WBCs 11/17/2024 6:37 PM EDT [facility] nRBC # <0.01 <0.01 10*3/uL 11/17/2024 6:37 PM EDT [facility] Blood Structure of peripheral vein / Unknown Venipuncture / Unknown 11/17/2024 6:23 PM EDT 11/17/2024 6:34 PM EDT us Rosette Franklin MD LAB BLOOD ORDERABLES Final Resu lt [facility] [address] [place] [address], documented in this encounter Visit Diagnoses Diagnosis Seizure-like activity (HCC)- Primary documented in this encounter Administered Medications Inactive Administered Medications - up to 3 most recent administrations Medication Order MAR Action Action Date Dose Rate Site ketorolac (TORADOL) injection 15 mg 15 mg, intravenous, Once, On 11/17/24 at 2115, 1 dose Given 11/17/2024 9:21 PM EDT 15 mg levETIRAcetam (KEPPRA) injection 1,000 mg 1,000 mg, intravenous, Once, On 11/17/24 at 1855, 1 dose, Doses up to 1500 mg can administered undiluted at a rate not to exceed 500 mg/min. Given 11/17/2024 8:42 PM EDT 1,000 mg documented in this encounter Active and Recently Administered Medications Due to Daylight Saving Time, this section may contain times in both EST and EDT. Scheduled Medication Order 11/16/2024 11/17/202411/18/2024 ketorolac (TORADOL) injection 15 mg (COMPLETED) 15 mg, intravenous, Once, On 11/17/24 at 2115, 1 dose 2120 (Given - Provider: Anne Christian RN) levETIRAcetam (KEPPRA) injection 1,000 mg (COMPLETED) 1,000 mg, intravenous, Once, On 11/17/24 at 1855, 1 dose, Doses up to 1500 mg can administered undiluted at a rate not to exceed 500 mg/min. 2041 (Given - Provider: Anne Christian RN) documented in this encounter Care Teams Housekeeping/Laundry Relationship Specialty Start Date End Date Patient, Has No Pcp Or Ref DO NOT EDIT THIS RECORD VIA PROVIDER ON THE FLY PCP - General Concrete Hopper Operator 11/17/24 documented as of this encounter
== END 2024-11-21 15:46 | disposition home or self-care (01) ==
LOC: HO.ENCR 14:58
PROVIDERS: PCP Internal Medicine; Visit Provider Student in an Organized Health Care Education/Training Program
DX: D35.2 Benign neoplasm of pituitary gland (principal); E05.90 Thyrotoxicosis, unspecified without thyrotoxic crisis or storm; E05.00 Thyrotoxicosis with diffuse goiter without thyrotoxic crisis or storm
CPT/HCPCS: 99205

== ENCOUNTER → 2024-11-21 14:58 | Outpatient (BNVA) | payer OTHER, SELFPAY | PROVIDERS: PCP Internal Medicine; Visit Provider Student in an Organized Health Care Education/Training Program | DX: E05.00 Thyrotoxicosis with diffuse goiter without thyrotoxic crisis or storm (principal); D35.2 Benign neoplasm of pituitary gland | CPT/HCPCS: 99202 ==

== ENCOUNTER 2024-11-22 08:01 | Outpatient (REF) | payer OTHER, SELFPAY ==
--- OUTSIDE RECORDS SUMMARY | 2024-11-22 08:04 | XMS_ITS | Referral Summary ---
Author Organization [facility] Address [address] [place] [address] Care Team Providers Care Supervisor Riprap Placing Name Role Phone Patient, Has No Pcp Or Ref Primary Care Provider Unavailable Encounters Date Type Department Care Team Description 11/17/2024 5:48 PM EDT - 11/18/2024 12:23 AM EDT Emergency [facility] Emergency Department [address] [place] [address] Rosette Franklin MD Seizure-like activity (HCC) (Primary [...] Not on file Procedures * Due to [place] state law, this organization might not be [...] Last 3 Months Results * Due to [place] Mark43 law, this organization might not be sharing [...] obtain the completed interpretation. ? Workstation ID: [id number] Narrative 11/17/2024 11:12 PM EDT INDICATION: 29 years Female who presents with/for Fatigue and malaise TECHNIQUE: Single view of the chest COMPARISON: None FINDINGS: Lines/Tubes/Support: Telemetry leads. Mediastinum: Cardiomediastinal silhouette is without acute findings. Trachea appears midline. Lungs/Pleura: Symmetrically inflated without focal consolidation, significant pleural effusion, or sizable pneumothorax. Musculoskeletal: No displaced fractures. Abdomen: No acute findings. Resulting Agency Comment [id number] Procedure Note Marco A Gonzalez MD - [...] possible to obtain thecompleted interpretation. Workstation ID: [id number] us Rosette Franklin MD IMG XR PROCEDURES Final Result * Repeat Troponin #1 (11/17/2024 10:10 PM EDT) Only the most recent of2 resultswithin the time period is included. Pathologist [facility] Troponin T High Sensitivity <6 <=13 ng/L 11/17/2024 10:[address] [facility] Comment: Am-Wtfcopnu-K level of 52 ng/L or higher at [...] be evaluated in line with the 4th [place] Definition of AMI. Troponin baseline and serial [...] MD LAB BLOOD ORDERABLES Final Resu lt [facility] [address] [place] [address], * (ABNORMAL) Microscopic Urinalysis Only (11/17/2024 8:50 PM EDT) WBC, Urine 15-20(A) 0-2, None Seen /HPF [facility] MANUAL 11/17/2024 9:[address] [facility] RBC, Urine Too Numerous To Count(A) 0-2, None Seen /HPF [facility] MANUAL 11/17/2024 9:[address] [facility] Bacteria, Urine 1+(A) None Seen /HPF [facility] MANUAL 11/17/2024 9:[address] [facility] Squamous Epithelial Cells, Urine Moderate /HPF [facility] MANUAL 11/17/2024 9:[address] [facility] Trichomonas, Urine Present(A) None Seen /HPF [facility] MANUAL 11/17/2024 9:[address] [facility] Urine Urine specimen collection, clean catch / Unknown Non-Blood Collection / Unknown 11/17/2024 8:50 PM EDT 11/17/2024 8:55 PM EDT us Rosette Franklin MD LAB URINE ORDERABLES Final Resu lt [facility] [address] [place] [address], [place] * (ABNORMAL) Urinalysis W/Reflex to Microscopic & Culture (11/17/2024 8:50 PM EDT) Color, Urine Yellow Yellow 11/17/2024 9:36 [address] [facility] Clarity, Urine Clear Clear 11/17/2024 9:36 [address] [facility] Specific [place], Urine 1.015 1.005 - 1.030 11/17/2024 9:36 [address] ED[address] [facility] pH, Urine 7.0 5.0 - 8.0 11/17/2024 9:[address] [facility] Protein, Urine 30(A) Negative mg/dL 11/17/2024 9:[address] [facility] Glucose, Urine Negative Negative mg/dL 11/17/2024 9:[address] [facility] Ketones, Urine Negative Negative mg/dL 11/17/2024 9:[address] [facility] Bilirubin, Urine Negative Negative 11/17/2024 9:[address] [facility] Blood, Urine Large(A) Negative 11/17/2024 9:[address] [facility] Nitrite, Urine Negative Negative 11/17/2024 9:[address] [facility] Urobilinogen , Urine 0.2 0.2, 1.0 E.U./dL 11/17/2024 9:[address] [facility] Leukocyte Esterase, Urine Moderate(A) Negative 11/17/2024 9:[address] [facility] Urine Urine specimen collection, clean catch / Unknown Non-Blood Collection / Unknown 11/17/2024 8:50 PM EDT 11/17/2024 8:55 PM EDT Narrative [facility] - 11/17/2024 9:36 PM EDT Some urinalysis results will not meet the criteria for reflex urine culture although certain urine values may be abnormal. ??Additional testing can be ordered by the provider if clinically warranted. us Rosette Franklin MD LAB URINE ORDERABLES Final Resu lt [facility] [address] [place] [address], [place] * CT Head WO Contrast (11/17/2024 [...] obtain the completed interpretation. ? Workstation ID: [id number] Up-to-date CT equipment and radiation dose reduction [...] osseous lesions or fractures. Resulting Agency Comment [id number] Procedure Note Charleen Zhang MD - 11/17/2024 [...] possible to obtain thecompleted interpretation. Workstation ID: [id number] Up-to-date CT equipment and radiation dose reduction techniques wereemployed. CTDIvol: 45.8 mGy. DLP: 834 mGy-cm. Rosette Franklin MD IM CT PROCEDURES Final Result * (ABNORMAL) CBC Auto Differential (11/17/2024 6:23 PM EDT) Pathologist [facility] WBC 8.8 3.8 - 10.8 10*3/uL 11/17/2024 6:37 PM EDT [facility] RBC 4.68 3.80 - 5.10 10*6/uL 11/17/2024 6:37 PM EDT [facility] Hemoglobin 11.7 11.7 - 15.5 g/dL 11/17/2024 6:37 PM EDT [facility] Hematocrit 36.3 35.0 - 45.0 [...] - 7.80 10*3/uL 11/17/2024 6:37 PM EDT [facility] Immature Grans # 0.03 <=0.03 10*3/uL 11/17/2024 6:37 PM EDT [facility] Lymphocyte # 2.20 0.85 - 3.90 10*3/uL 11/17/2024 6:37 PM EDT [facility] Monocyte # 0.50 0.20 - 0.95 10*3/uL 11/17/2024 6:37 PM EDT [facility] Eosinophil # 0.20 0.02 - 0.50 10*3/uL 11/17/2024 6:37 PM EDT [facility] Basophil # 0.10 0.00 - 0.20 10*3/uL 11/17/2024 6:[address] [facility] nRBC % 0.0 /100 WBCs 11/17/2024 6:[address] [facility] nRBC # <0.01 <0.01 10*3/uL 11/17/2024 6:[address] [facility] Blood Structure of peripheral vein / Unknown Venipuncture / Unknown 11/17/2024 6:23 PM EDT 11/17/2024 6:34 PM EDT us Rosette Franklin MD LAB BLOOD ORDERABLES Final Resu lt [facility] [address] [place] [address], [place] * hCG, Qualitative, Serum (11/17/2024 6:23 PM EDT) HCG Qualitative, Serum Negative Negative [facility] 11/17/2024 6:59 PM EDT [facility] Comment: hCG may [...] ORDERABLES Final Resu lt Performing Organization Address City/[facility]/ZIP Co de Phone Number [facility] [address] [place] [phone], * Magnesium (11/17/2024 6:23 PM EDT) MG 2.0 1.6 - 2.4 mg/dL 11/17/2024 7:[address] [facility] Blood Structure of peripheral vein / Unknown Venipuncture / Unknown 11/17/2024 6:23 PM EDT 11/17/2024 6:34 PM EDT us Rosette Franklin MD LAB BLOOD ORDERABLES Final Resu lt Performing Organization Address City/[facility]/ZIP Co de Phone Number [facility] [address] [place] [id number], [place] * BMP - Basic Metabolic Panel (11/17/2024 6:23 PM EDT) NA 137 135 - 145 mmol/L 11/17/2024 7:07 PM EDT [facility] K 3.9 3.5 - 5.3 mmol/L 11/17/2024 7:07 PM EDT [facility] Cl 101 98 - 107 mmol/L 11/17/2024 7:07 PM EDT [facility] CO2 23 22 - 32 mmol/L 11/17/2024 7:[address] [facility] BUN 17 7 - 23 mg/dL 11/17/2024 7:[address] [facility] Creatinine 0.76 0.50 - 1.20 mg/dL 11/17/2024 7:[address] [facility] Glucose 91 65 - 99 mg/dL 11/17/2024 7:[address] [facility] Calcium 9.1 8.6 - 10.5 mg/dL 11/17/2024 7:[address] [facility] Anion Gap 13 5 - 15 11/17/2024 7:[address] [facility] eGFR >90 >=60 mL/min/1. 73m2 11/17/2024 7:[address] [facility] Comment:The estimated glomer ular [...] MD LAB BLOOD ORDERABLES Final Resu lt [facility] [address] [id number], from Last 3 Months Insurance [facility] [employer] Care Teams Supervisor Riprap Placing Relationship Specialty Start Date End Date Patient, Has No Pcp Or Ref DO NOT EDIT THIS RECORD VIA PROVIDER ON THE FLY PCP - General Sheet Metal Smith 11/17/24
--- OUTSIDE RECORDS SUMMARY | 2024-11-22 08:04 | XMS_ITS | Encounter Summary ---
Author Organization [facility] Address [address] [place] [address] Care Team Providers Care Light Out Examiner Name Role Phone Patient, Has No Pcp Or Ref Primary Care Provider Unavailable Reason for Visit * Reason Comments Seizure Encounter Details Date Type Department Care Team (Late st Contact Info) Description 11/17/2024 5:48 PM EDT - 11/18/2024 12:23 AM EDT Emergency [facility] Emergency Department [address] [place] [address] Rosette Franklin MD [address] [place] [phone] Seizure-like activity (HCC) (Primary Dx) Discharge Disposition: Home or Self Care () Social History Tobacco Use Types Packs/Day Years [...] que kern neurolog??a le autorice a hacerlo. [place] Tylenol e ibuprofeno para el dolor.Regrese al departamento de emergencias si tiene alguna inquietud. documented in this encounter Medications at Time of Discharge amLODIPine (NORVASC) 10 mg tablet Take 10 mg by mouth once a day. documented as of this encounter ED Notes * Rosette Franklin MD - 11/17/2024 5:47 PM EDT History HPI: No chief complaint on file. HPI 29-year-old Macedonian-speaking female with history of hyperthyroidism presenting to the emergency department with seizure. Reportedly had seizure-like activity at home. EMS witnessed an approximately 1.5-minute seizure and gave 2 mg of IM Versed. Patient reports history of seizures which she has had several times was never seen a neurologist and is not on any antiepileptics. Does note she has a neurology appointment at [facility] next week. Notes that she lives closer to [facility] but was here visiting family) takes amlodipine [...] normal. Medical Decision Making and ED Course [facility] ED Course as of 11/17/24 2247 Sun Nov 17, 2024 215 Blood, Urine(!): Large On menstrual cycle [] 2224 Troponin T High Sensitivity: <6 [AH] ED Course User Index [AH] Rosette Franklin MD 29-year-old Macedonian-speaking female with history of hyperthyroidism presenting to the emergency department with seizure. Due to patient being from out of the area I did not have any records on her. She does not have any tachycardia or significant hypertension that would be concerning for thyroid storm. I spoke at length with patient's spouse. It sounds as if she has been evaluated at [facility] multiple times for these episodes. He informing [...] No prior. Dain Nelson : 1995 CSN: [id number] Rosette Franklin MD 11/17/24 2258 documented in this encounter Miscellaneous Notes * Emergency Department Information Exchange - SHERIN - Sherin Interface - 11/17/2024 6:31 PM EDT [facility] NOTIFICATION 11/17/2024 17:48 DAIN NELSON : 1995 [facility]'s patient encounter information: MRN:?[id number] Account Number:?[id number] Billing Account Number:?[id number] Criteria Met High-UtilizersStandard: 6 ED visits within 6 months Traveling Patients Standard: 3 Different EDs within 90 days Security and Safety No Security Events were found. ED Care Guidelines There are currently no ED Care Guidelines for this patient. Please check your facility's medical records system. Prescription Drug Data No Prescription Drug Data was found. E.D. Visit Count (12 mo.) Facility Visits [facility] 11 [facility] 3 [facility] 1 Total 15 Note: Visits indicate total known visits. Recent Emergency Department Visit Summary Showing 10 most recent visits out of 15 in the past 12 months Date Facility City State Type Diagnoses or Chief Complaint Nov 17, 2024 [facility] 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 Trichomoniasis, unspecified 1. Pelvic and perineal pain 2. Influenza due to other identified influenza virus with other respiratory manifestations 3. Unspecified convulsions 4. Acculturation difficulty 5. Other electroneurodiagnostic technologist (current) drug therapy 99. Influenza due to unidentified influenza virus with other respiratory manifestations Oct 12, 2024 [facility] Emergency 99. Unspecified convulsions Oct 09, 2024 [facility] Emergency Chief Complaint: SZ Oct 07, 2024 [facility] Emergency 2. Other chest pain 3. Essential (primary) hypertension 4. 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 Migraine, unspecified, not intractable, without status migrainosus 6. Other electroneurodiagnostic technologist (current) drug therapy 7. Encounter for screening for COVID-19 99. Syncope and collapse 99. Chest pain, unspecified Oct 02, 2024 [facility] Emergency 2. Dizziness and giddiness 4. Unspecified pre-eclampsia, complicating the puerperium 5. Acculturation difficulty 6. Encounter for screening for COVID-19 7. Shortness of breath 8. Other electroneurodiagnostic technologist (current) drug therapy 99. Chest pain, unspecified 99. Nausea Sep 17, 2024 [facility] Emergency 1. Infection of bladder following delivery 3. Endocrine, nutritional and metabolic diseases complicating the puerperium 5. Other complications of the puerperium, not elsewhere classified 7. Headache, unspecified 8. Bradycardia, unspecified 9. Encounter for screening for COVID-19 10. Acculturation difficulty 99. Dehydration 99. Syncope and collapse 99. Dizziness and giddiness Sep [facility] [place] [facility] 1. Other chest pain 2. Nausea with vomiting, unspecified 3. Diarrhea, unspecified 5. Abnormal uterine and vaginal bleeding, unspecified 6. Other electroneurodiagnostic technologist (current) drug therapy 7. Encounter for screening for COVID-19 99. Vomiting, unspecified 99. Syncope and collapse Jun 05, 2024 [facility] [place] [facility] 99. Other specified health status 99. Headache, unspecified 99. Unspecified pre-existing hypertension complicating , unspecified trimester Recent Inpatient Visit Summary Date Facility [facility] Type Diagnoses or Chief Complaint Oct [facility] 2024 [facility] [place] [facility] Aug [facility] [place] [facility] 99. Severe pre-eclampsia, third trimester 99. [...] complicating , unspecified trimester Jul [facility], 2024 [facility] [place] [facility] 99. Encounter for other general counseling [...] scar from previous surgery [facility] [place] [facility] 99. Urinary tract infection, site not [...] trimester 99. Headache, unspecified May 30, 2024 [facility] Elinor [place] Obstetrics 99. Other specified [...] Current RODGER LOMBARDO MD Internal Medicine Current AppliLog This patient has registered at the [facility] Emergency Department For more information visit: [email or web address] PLEASE NOTE: 1. Any care recommendations and other clinical information are provided as guidelines or for historical purposes only, and providers should exercise their own clinical judgment when providing care. 2. You may only use this information for purposes of treatment, payment or health care operations activities, and subject to the limitations of applicable App[employer] Policies. 3. You should consult directly with the organization that provided a care guideline or other clinical history with any questions about additional information or accuracy or completeness of information provided. ? 2024 [employer] - [email or web address] documented in this encounter Plan of Treatment Pending Results Name Type Priority Associated Diagnoses Date /Time Urine Culture, Routine Microbiology Routine 11/17/2024 8:50 PM EDT documented as of this encounter Procedures * Due to [place] state law, this organization might not be [...] in this encounter Results * Due to [place] state law, this organization might not be [...] obtain the completed interpretation. ? Workstation ID: [id number] Narrative 11/17/2024 11:12 PM EDT INDICATION: 29 years Female who presents with/for Fatigue and malaise TECHNIQUE: Single view of the chest COMPARISON: None FINDINGS: Lines/Tubes/Support: Telemetry leads. Mediastinum: Cardiomediastinal silhouette is without acute findings. Trachea appears midline. Lungs/Pleura: Symmetrically inflated without focal consolidation, significant pleural effusion, or sizable pneumothorax. Musculoskeletal: No displaced fractures. Abdomen: No acute findings. Resulting Agency Comment [id number] Procedure Note Marco A Gonzalez MD - [...] possible to obtain thecompleted interpretation. Workstation ID: [id number] Rosette Franklin MD IMG XR PROCEDURES Final Result * Repeat Troponin #1 (11/17/2024 10:10 PM EDT) Troponin T High Sensitivity <6 <=13 ng/L 11/17/2024 10:[address] [facility] Comment: Fm-Hzowtdek-J level of 52 ng/L or higher at [...] be evaluated in line with the 4th Stephen Definition of AMI. Troponin baseline and serial [...] BLOOD ORDERABLES Final Resu lt [facility] [address] [place] [address], [place] * Troponin T, High Sensitivity (11/17/2024 9:18 PM EDT) Troponin T High Sensitivity <6 <=13 ng/L 11/17/2024 10:01 PM EDT [facility] Comment: Qv-Jctvbvog-A level of 52 ng/L or higher at [...] be evaluated in line with the 4th Stephen Definition of AMI. Troponin baseline and serial [...] BLOOD ORDERABLES Final Resu lt [facility] [address] [place] [address], [place] * (ABNORMAL) Microscopic Urinalysis Only (11/17/2024 8:50 PM EDT) WBC, Urine 15-20(A) 0-2, None Seen /HPF [facility] MANUAL 11/17/2024 9:[address] [facility] RBC, Urine Too Numerous To Count(A) 0-2, None Seen /HPF [facility] 11/17/2024 9:[address] [facility] Bacteria, Urine 1+(A) None Seen /HPF [facility] MANUAL 11/17/2024 9:[address] [facility] Squamous Epithelial Cells, Urine Moderate /HPF [facility] MANUAL 11/17/2024 9:[address] [facility] Trichomonas, Urine Present(A) None Seen /HPF [facility] MANUAL 11/17/2024 9:[address] [facility] Urine Urine specimen collection, clean catch / Unknown Non-Blood Collection / Unknown 11/17/2024 8:50 PM EDT 11/17/2024 8:55 PM EDT us Rosette Franklin MD LAB URINE ORDERABLES Final Resu lt [facility] [address] [place] [address], [place] * (ABNORMAL) Urinalysis W/Reflex to Microscopic & Culture (11/17/2024 8:50 PM EDT) Color, Urine Yellow Yellow 11/17/2024 9:36 [address] [facility] Clarity, Urine Clear Clear 11/17/2024 9:36 [address] [facility] Specific [place], Urine 1.015 1.005 - 1.030 11/17/2024 9:36 [address] [facility] pH, Urine 7.0 5.0 - 8.0 11/17/2024 9:[address] [facility] Protein, Urine 30(A) Negative mg/dL 11/17/2024 9:[address] [facility] Glucose, Urine Negative Negative mg/dL 11/17/2024 9:[address] [facility] Ketones, Urine Negative Negative mg/dL 11/17/2024 9:[address] [facility] Bilirubin, Urine Negative Negative 11/17/2024 9:[address] [facility] Blood, Urine Large(A) Negative 11/17/2024 9:[address] [facility] Nitrite, Urine Negative Negative 11/17/2024 9:[address] [facility] Urobilinogen , Urine 0.2 0.2, 1.0 E.U./dL 11/17/2024 9:[address] [facility] Leukocyte Esterase, Urine Moderate(A) Negative 11/17/2024 9:[address] [facility] Urine Urine specimen collection, clean catch / Unknown Non-Blood Collection / Unknown 11/17/2024 8:50 PM EDT 11/17/2024 8:55 PM EDT [facility] - 11/17/2024 9:36 PM EDT Some urinalysis results will not meet the criteria for reflex urine culture although certain urine values may be abnormal. ??Additional testing can be ordered by the provider if clinically warranted. us Rosette Franklin MD LAB URINE ORDERABLES Final Resu lt [facility] [address] [place] [address], [place] * CT Head WO Contrast (11/17/2024 [...] obtain the completed interpretation. ? Workstation ID: [id number] Up-to-date CT equipment and radiation dose reduction [...] osseous lesions or fractures. Resulting Agency Comment [id number] Procedure Note Charleen Zhang MD - 11/17/2024 [...] possible to obtain thecompleted interpretation. Workstation ID: [id number] Up-to-date CT equipment and radiation dose reduction techniques wereemployed. CTDIvol: 45.8 mGy. DLP: 834 mGy-cm. us Rosette Franklin MD IMG CT PROCEDURES Final Result * hCG, Qualitative, Serum (11/17/2024 6:23 PM EDT) HCG Qualitative, Serum Negative Negative [facility] MANUAL 11/17/2024 6:59 [address] [facility] Comment: hCG may be [...] ORDERABLES Final Resu lt Performing Organization Address [facility] Co de Phone Number [facility] [address] [place] [address], * Magnesium (11/17/2024 6:23 PM EDT) MG 2.0 1.6 - 2.4 mg/dL 11/17/2024 7:[address] [facility] Blood Structure of peripheral vein / Unknown Venipuncture / Unknown 11/17/2024 6:23 PM EDT 11/17/2024 6:34 PM EDT us Rosette Franklin MD LAB BLOOD ORDERABLES Final Resu lt [facility] [address] [place] [address], [place] * BMP - Basic Metabolic Panel (11/17/2024 6:23 PM EDT) NA 137 135 - 145 mmol/L 11/17/2024 7:[address] [facility] K 3.9 3.5 - 5.3 mmol/L 11/17/2024 7:[address] [facility] Cl 101 98 - 107 mmol/L 11/17/2024 7:07 PM EDT [facility] CO2 23 22 - 32 mmol/L 11/17/2024 7:[address] [facility] BUN 17 7 - 23 mg/dL 11/17/2024 7:07 PM EDT [facility] Creatinine 0.76 0.50 - 1.20 mg/dL 11/17/2024 7:[address] [facility] Glucose 91 65 - 99 mg/dL 11/17/2024 7:[address] [facility] Calcium 9.1 8.6 - 10.5 mg/dL 11/17/2024 7:[address] [facility] Anion Gap 13 5 - 15 11/17/2024 7:07 PM EDT [facility] eGFR >90 >=60 mL/min/1. 73m2 11/17/2024 7:07 PM EDT [facility] Comment:The estimated glomer ular filtration [...] MD LAB BLOOD ORDERABLES Final Resu lt [facility] [address] [place] [address], * (ABNORMAL) CBC Auto Differential (11/17/2024 6:23 PM EDT) WBC 8.8 3.8 - 10.8 10*3/uL 11/17/2024 6:37 PM EDT [facility] RBC 4.68 3.80 - 5.10 10*6/uL 11/17/2024 6:37 PM EDT [facility] Hemoglobin 11.7 11.7 - 15.5 g/dL 11/17/2024 6:37 PM EDT [facility] Hematocrit 36.3 35.0 - 45.0 % 11/17/2024 6:37 PM EDT [facility] MCV 77.6(L) 80.0 - 100.0 fL 11/17/2024 6:37 PM EDT [facility] MCH 25.0(L) [...] - 0.95 10*3/uL 11/17/2024 6:[address] [facility] Eosinophil # 0.20 0.02 - 0.50 10*3/uL 11/17/2024 6:[address] [facility] Basophil # 0.10 0.00 - 0.20 10*3/uL 11/17/2024 6:[address] [facility] nRBC % 0.0 /100 WBCs 11/17/2024 6:[address] [facility] nRBC # <0.01 <0.01 10*3/uL 11/17/2024 6:[address] [facility] Blood Structure of peripheral vein / Unknown Venipuncture / Unknown 11/17/2024 6:23 PM EDT 11/17/2024 6:34 PM EDT us Rosette Franklin MD LAB BLOOD ORDERABLES Final Resu lt [facility] [address] [place] [address], documented in this encounter Visit Diagnoses Diagnosis [...] RN) documented in this encounter Care Teams Light Out Examiner Relationship Specialty Start Date End Date Patient, Has No Pcp Or Ref DO NOT EDIT THIS RECORD VIA PROVIDER ON THE FLY PCP - General Social Welfare Administrator 11/17/24 documented as of this encounter
--- OUTSIDE RECORDS SUMMARY | 2024-11-22 08:04 | XMS_ITS | Data Portability ---
Author Organization [facility] [place] [address] Care Team Providers Care Termite Control Service Representative Name Role Phone [facility] Primary Care Provider Assessment Encounter Date Assessment Date Assessment LastModified by Organization Details LastModified Time 09/17/2022 09/17/2022 Overview/History : 27 YO F new to DH and new to provider She is being seen today at home Has PMH of depression, HTN, anxiety, anemia, gestational diabetes She is primarily tristanian speaking and she elects to use her friend via telephone to help translate instead of formal medical tristanian translation w/ our service. Of note she [...] days ago but then after I call [facility] to review records w/ her permission [...] present, apparently new, discussed w/ member of [facility] who reports this is new [...] visit -She reports she was seen in [facility] ED in Jul for this issue -She gives me permission to call [facility] to review records, I speak with staff Pharmacist Yadira Grace who reports that she has been seen numerous times between Jul, Aug and even yesterday. She has never been seen for a dental issue or facial swelling however. No mention of facial swelling in her chart from yesterday. She was educated at that time to f/u [facility] PCP for URI sxs. -Today [...] Review completed RE[facility] Tomas [address], [place], [address], [place] [facility] 09/17/2022 14:01:37 section completed [facility] Tomas [address], [place], [address], [place] [facility] 09/17/2022 12:55:35 Imaging Results None recorded. Procedure Notes None recorded. Medical Equipment None Reported. Allergies Allergen ID Allergen Name Allergen Category Reaction Reaction Severity Criticality Documentation Date Start Date Code Code System Note Provider Name and Address Organization Details Recorded Time 935175 Augmentin medicatio n Not available Not available Not available 09/17/2022 19790 2 RxNorm REVA Michelle [address], [place], [address], [place] [facility] 12:48:53 [id number] nifedipin e medicatio n Not available Not available Not available 09/17/2022 7417 RxNorm REVA Michelle [address], [place], [address], [place] [facility] 3 12:48:58 047615 Mucinex medicatio n Not available Not available Not available 09/17/2022 82144 7 RxNorm REVA Michelle [address], [place], [address], [place] [facility] 13:06:54 474377 cyclobenz aprine medicatio n Not available Not available Not available 09/17/2022 63537 RxNorm REVA Michelle [address] [place], [address], [place] [facility] 13:07:10 [...] Not Available Not Available Not Available FreeStyle [place] Lite kit PLEASE CHECK GLUCOSE LEVEL FOR [...] /min 116 mm[Hg] 68 mm[Hg] Not Available [facility] 13:10:43 Social History Question Answer Notes LastModified by Organizat ion Details LastModified Time Tobacco Smoking Status Never Smoker [facility] Tomas [address] [place], [place] [address], [address], [place] [facility] 09/17/2022 12:55:47 What Is [...] N Stroke N Dementia N Asthma N COPD N Depression Y Hypothyroidism N High Cholesterol N Rheumatoid Arthritis N Pulmonary Embolism N Hypertension Y A-fib N Osteoporosis N Kidney Disease N Gynecological HistoryNo gynecological history recorded. Obstetrics History GPAL:G 0 P 0 0 0 0 Past Encounters Encounter ID Performer Location Encounter Start Date Encounter Closed Date Diagnosis/Indication Diagnosis SNOMED-CT Code Diagnosis ICD10 Code Diagnosis Note [id number] REVA Coy [facility] [address] [place] [address] 09/17/2022 12:41:07 09/17/2022 14:58:27 Left parotid gland swelling [id number] 1438249 K11.9 Health Concerns Section Related Observation LastModified by Organization Detai ls LastModified Time None Recorded Concern Status LastModified by Organization Details LastModified Time None Recorded Advance Directives Directive None Recorded Payers Encounter Date Sequence Insurance Name Policy Number Policy Gaona Covered Member ID Gaona Member ID Guarantor Name 09/17/2022 1 [facility] (MEDICAID HMO) [id number] [facility] [id number] [facility] Notes Date Note Type Note Provider Name and Address Organization Details Recorded Time 09/17/2022 text/html 27 YO F new to D H and new to providerShe is being [facility] today [facility] of depression, HTN, anxiety, anemia, gestational diabetesShradha is primarily tristanian speaking and she elects to use her friend via telephone to help translate instead of formal medical tristanian translation w/ our service.Of note she and [...] days ago but then after I call [facility] to review records w/ her permission [...] reported sxs or concerns today. REVA Tomas [address] [place] [address] [place], [address], [place] [facility] 09/17/2022 14:18:02 OBGyn Episode No OBEpisode recorded.
--- OUTSIDE RECORDS SUMMARY | 2024-11-22 08:04 | XMS_ITS | Clinical Summary ---
Author Organization [facility] Address [address] [place] [address] Care Team Providers Care Newspaper Delivery Counselor Name Role Phone Patient, Has No Pcp Or Ref Primary Care Provider Unavailable Allergies Active Allergy Reactions Criticality Noted Date Comments Escitalopram Oxalate Vomiting 11/17/2024 Lorazepam Hives 11/17/2024 Penicillins Hives 11/17/2024 Medications amLODIPine (NORVASC) 10 mg tablet Take 10 mg by mouth once a day. Active Encounters Date Type Department Care Team Description 11/17/2024 5:48 PM EDT - 11/18/2024 12:[address] [facility] Emergency Department [address] [place] [address] Rosette Franklin MD Seizure-like activity (HCC) (Primary [...] Completed 06/06/2024, 06/04/2019 Procedures * Due to [place] state law, [...] 3 Months Results * Due to [place] state law, this [...] obtain the completed interpretation. ? Workstation ID: [id number] Narrative 11/17/2024 11:12 PM EDT INDICATION: 29 years Female who presents with/for Fatigue and malaise TECHNIQUE: Single view of the chest COMPARISON: None FINDINGS: Lines/Tubes/Support: Telemetry leads. Mediastinum: Cardiomediastinal silhouette is without acute findings. Trachea appears midline. Lungs/Pleura: Symmetrically inflated without focal consolidation, significant pleural effusion, or sizable pneumothorax. Musculoskeletal: No displaced fractures. Abdomen: No acute findings. Resulting Agency Comment [id number] Procedure Note Marco A Gonzalez MD - [...] possible to obtain thecompleted interpretation. Workstation ID: [id number] us Rosette Franklin MD IMG XR PROCEDURES Final Result * Repeat Troponin #1 (11/17/2024 10:10 PM EDT) Only the most recent of2 resultswithin the time period is included. Troponin T High Sensitivity <6 <=13 ng/L 11/17/2024 10:37 PM EDT [facility] Comment: Wt-Egacoifa-T level of 52 ng/L or higher at [...] be evaluated in line with the 4th Vancourt Definition of AMI. Troponin baseline and serial [...] MD LAB BLOOD ORDERABLES Final Resu lt [facility] [address] [place] [address], [place] * (ABNORMAL) Microscopic Urinalysis Only (11/17/2024 8:50 PM EDT) WBC, Urine 15-20(A) 0-2, None Seen /HPF [facility] MANUAL 11/17/2024 9:55 PM EDT [facility] RBC, Urine Too Numerous To Count(A) 0-2, None Seen /HPF [facility] MANUAL 11/17/2024 9:55 PM EDT [facility] Bacteria, Urine 1+(A) None Seen /HPF [facility] MANUAL 11/17/2024 9:55 PM EDT [facility] Squamous Epithelial Cells, Urine Moderate /HPF [facility] MANUAL 11/17/2024 9:55 PM EDT [facility] Trichomonas, Urine Present(A) None Seen /HPF [facility] MANUAL 11/17/2024 9:55 PM EDT [facility] Urine Urine specimen collection, clean catch / Unknown Non-Blood Collection / Unknown 11/17/2024 8:50 PM EDT 11/17/2024 8:55 PM EDT us Rosette Franklin MD LAB URINE ORDERABLES Final Resu lt [facility] [address] [place] [id number], [place] * (ABNORMAL) Urinalysis W/Reflex to Microscopic & Culture (11/17/2024 8:50 PM EDT) Color, Urine Yellow Yellow 11/17/2024 9:36 PM EDT [facility] Clarity, Urine Clear Clear 11/17/2024 9:36 PM EDT [facility] Specific [place], Urine 1.015 1.005 - 1.030 11/17/2024 9:36 PM EDT [facility] pH, Urine 7.0 5.0 - 8.0 11/17/2024 9:36 PM EDT [facility] Protein, Urine 30(A) Negative mg/dL 11/17/2024 9:36 PM EDT [facility] Glucose, Urine Negative Negative mg/dL 11/17/2024 9:36 PM EDT [facility] Ketones, Urine Negative Negative mg/dL 11/17/2024 9:36 PM EDT [facility] Bilirubin, Urine Negative Negative 11/17/2024 9:36 PM EDT [facility] Blood, Urine Large(A) Negative 11/17/2024 9:36 PM EDT [facility] Nitrite, Urine Negative Negative 11/17/2024 9:36 PM EDT [facility] Urobilinogen , Urine 0.2 0.2, 1.0 E.U./dL 11/17/2024 9:36 PM EDT [facility] Leukocyte Esterase, Urine Moderate(A) Negative 11/17/2024 9:36 PM EDT [facility] Urine Urine specimen collection, clean catch / Unknown Non-Blood Collection / Unknown 11/17/2024 8:50 PM EDT 11/17/2024 8:55 PM EDT Narrative [facility] - 11/17/2024 9:36 PM EDT Some urinalysis results will not meet the criteria for reflex urine culture although certain urine values may be abnormal. ??Additional testing can be ordered by the provider if clinically warranted. us Rosette Franklin MD LAB URINE ORDERABLES Final Resu lt [facility] [address] [place] [address], [place] * CT Head WO Contrast (11/17/2024 [...] obtain the completed interpretation. ? Workstation ID: [id number] Up-to-date CT equipment and radiation dose reduction [...] osseous lesions or fractures. Resulting Agency Comment [id number] Procedure Note Charleen Zhang MD - 11/17/2024 [...] possible to obtain thecompleted interpretation. Workstation ID: [id number] Up-to-date CT equipment and radiation dose reduction techniques wereemployed. CTDIvol: 45.8 mGy. DLP: 834 mGy-cm. us Rosette Franklin MD IM CT PROCEDURES Final Result * (ABNORMAL) CBC Auto Differential (11/17/2024 6:23 PM EDT) [facility] WBC 8.8 3.8 - 10.8 10*3/uL 11/17/2024 [...] - 0.20 10*3/uL 11/17/2024 6:37 PM EDT [facility] nRBC % 0.0 /100 WBCs 11/17/2024 6:37 PM EDT [facility] nRBC # <0.01 <0.01 10*3/uL 11/17/2024 6:37 PM EDT [facility] Blood Structure of peripheral vein / Unknown Venipuncture / Unknown 11/17/2024 6:23 PM EDT 11/17/2024 6:34 PM EDT Rosette Franklin MD LAB BLOOD ORDERABLES Final Resu lt Performing Organization Address [facility] Co de Phone Number [address] [address], [place] * hCG, Qualitative, Serum (11/17/2024 6:23 PM EDT) HCG Qualitative, Serum Negative Negative [place] MANUAL 11/17/2024 6:59 PM EDT [facility] Comment: hCG may be negative in early . ??Suggest repeat testing in 2-4 days if clinically indicated. ??The results of this test should be interpreted with the patient's clinical presentation. Blood Structure of peripheral vein / Unknown Venipuncture / Unknown 11/17/2024 6:23 PM EDT 11/17/2024 6:34 PM EDT Rosette Franklin MD LAB BLOOD ORDERABLES Final Resu lt Performing Organization Address City/[facility]/ZIP Co de Phone Number [facility] [address] [place] [id number], [place] * Magnesium (11/17/2024 6:23 PM EDT) MG 2.0 1.6 - 2.4 mg/dL 11/17/2024 7:07 PM EDT [facility] Blood Structure of peripheral vein / Unknown Venipuncture / Unknown 11/17/2024 6:23 PM EDT 11/17/2024 6:34 PM EDT us Rosette Franklin MD LAB BLOOD ORDERABLES Final Resu lt [facility] [address] [place] [address], [place] * BMP - Basic Metabolic Panel (11/17/2024 6:23 PM EDT) NA 137 135 - 145 mmol/L 11/17/2024 7:07 PM EDT [facility] K 3.9 3.5 - 5.3 mmol/L 11/17/2024 7:07 PM EDT [facility] Cl 101 98 - 107 mmol/L 11/17/2024 7:07 PM EDT [facility] CO2 23 22 - 32 mmol/L 11/17/2024 7:07 PM EDT [facility] BUN 17 7 - 23 mg/dL 11/17/2024 7:07 PM EDT [facility] Creatinine 0.76 0.50 - 1.20 mg/dL 11/17/2024 7:07 PM EDT [facility] Glucose 91 65 - 99 mg/dL 11/17/2024 7:07 PM EDT [facility] Calcium 9.1 8.6 - 10.5 mg/dL 11/17/2024 7:07 PM EDT [facility] Anion Gap 13 5 - 15 11/17/2024 7:07 PM EDT [facility] eGFR >90 >=60 mL/min/1. 73m2 11/17/2024 7:07 PM EDT [facility] Comment:The estimated glomer ular filtration rate [...] MD LAB BLOOD ORDERABLES Final Resu lt [facility] [address] [place] [address], [place] from Last 3 Months Insurance [facility] [employer] Care Teams Newspaper Delivery Counselor Relationship Specialty Start Date End Date Patient, Has No Pcp Or Ref DO NOT EDIT THIS RECORD VIA PROVIDER ON THE FLY PCP - General Vascular Physician 11/17/24
--- OUTSIDE RECORDS SUMMARY | 2024-11-22 08:04 | XMS_ITS | Clinical Summary ---
Author Organization [employer] [facility] ity Address [address] [place] [address] Care Team Providers Care Frame Stripper Name Role Phone Jeffy Gutierrez MD Primary [...] Documents on File Type Date Recorded Patient First Assist Expl anation Health Care Decision (hx) 08/30/2023 HE ALTH CARE PROXY Health Care Decision (hx) 08/30/2023 HE ALTH CARE PROXY Health Care Decision (hx) 08/30/2023 HE ALTH CARE PROXY Care Teams Frame Stripper Relationship Specialty Start Date End Date Jeffy Gutierrez MD [address] [place] [address] Dr [address] JO-ANN Black PCP - General 10/25/23
[2024-11-22 10:15] LABS: Glucose Fasting 91 mg/dL (60-99)
[2024-11-22 10:36] LABS: Anion Gap 13 (12-20); Blood Urea Nitrogen 11 mg/dL (9-16); Calcium 9.8 mg/dL (8.4-10.2); Carbon Dioxide 27 mmol/L (22-29); Chloride 104 mmol/L (96-108); Estimated Glomerular Filt Rate > 60; Glucose Random 90 mg/dL (60-115); Potassium 4.1 mmol/L (3.3-5.1); Sodium 140 mmol/L (135-145)
[2024-11-22 10:39] LABS: Free T4 (Free Thyroxine) 0.91 ng/dL (0.71-1.85); Thyroid Stimulating Hormone 1.87 uIU/mL (0.32-4.0)
[2024-11-22 10:58] LABS: Appearance Urine Cloudy; Color Urine Yellow; Glucose Urine UA Negative (Negative); Leukocyte Esterase Urine Moderate (2+) (Negative); Nitrite Urine Negative (Negative); Specific Gravity - Urine 1.025 (1.005-1.025); UMIC TRIGGER UACC YES; Urine Blood Moderate (2+) (Negative); Urine Ketones Trace mg/dL (Negative); Urine Protein 100 (2+) mg/dL (Neg-Trace)
[2024-11-22 11:18] LABS: Bacteria Urine 1+ (None Seen); Hyaline Casts Urine 0-2 /LPF (0-2); UACC Culture Trigger YES; WBC Urine 21-50 /HPF (0-5)
[2024-11-24 06:23] LABS: DHEA Sulfate 126 mcg/dL (14-349); Follicle Stimulating Hormone 5.9 mIU/mL; Lutenizing Hormone 4.3 mIU/mL; Prolactin 9.2 ng/mL
[2024-11-24 11:34] LABS: Triiodothyronine T3 Total 113 ng/dL (76-181)
[2024-11-26 14:43] LABS: Thyroid Peroxidase Antibodies 1 IU/mL (<9)
[2024-11-26 15:48] LABS: Adrenocorticotropic Hormone 24 pg/mL (6-50)
[2024-11-27 14:38] LABS: Thyroid Stimulating Immunoglob <89 % baseline (<140)
[2024-11-29 16:54] LABS: IGF-1 (Somatomedin C) 81 ng/mL (53-331); IGF-1 Z Score (Female) -1.3 SD (-2.0 - +2.0)
[2024-11-29 20:59] LABS: Thyrotropin Receptor Antibody <1.00 IU/L (<=2.00)
[2024-11-30 18:53] LABS: Estradiol Ultra Sensitive 81 pg/mL
== END 2024-11-22 08:02 | disposition home or self-care (01) ==
LOC: HO.LAB 08:01
PROVIDERS: PCP Internal Medicine; Visit Provider Student in an Organized Health Care Education/Training Program
DX: R56.9 Unspecified convulsions (principal); R30.0 Dysuria; R53.83 Other fatigue; D35.2 Benign neoplasm of pituitary gland; E05.00 Thyrotoxicosis with diffuse goiter without thyrotoxic crisis or storm; R51.9 Headache, unspecified; R79.89 Other specified abnormal findings of blood chemistry; F44.5 Conversion disorder with seizures or convulsions; R73.01 Impaired fasting glucose
CPT/HCPCS: 36415; 80048; 81001; 81003; 82024; 82533; 82627; 82670; 82947; 83001; 83002; 83003; 83519; 83520; 84146; 84305; 84439; 84443; 84445; 84480; 86376; 87086; 99212

== ENCOUNTER 2024-11-22 08:30 | Outpatient (AMB) | payer OTHER, SELFPAY ==
--- NOTE | 2024-11-22 08:34 | MHC.PC.OV ---
Vital Signs 11/22/24 08:37 Height 5 ft Weight 157 lb 2 oz BMI 30.7 BP 110/64 Blood Pressure Location Lt brachial Position Sitting Pulse 72 Pulse Source Pulse Oximeter Temp 97.1 F Temp Source Temporal Artery Scan Pulse Oximetry (%) 100 Oxygen Delivery Method Room Air Intake Visit Reasons: [facility] 11/18 Seizures Intake Note: Patient is here to follow-up after a visit the emergency department at [place] on 11/18/24 Insole And Heel Stiffener Required: Yes Insole And Heel Stiffener Language: French Information Interpreted: non-clinical & clinical Calender Wind Up Helper: Not Required per policy Accompanied by: Self / Same As Patient Allergies morphine Allergy (Severe, Verified 11/22/24 08:36) Vomiting guaifenesin [From Mucinex] Allergy (Intermediate, Verified 11/22/24 08:36) Unknown amoxicillin Allergy (Mild, Verified 11/22/24 08:36) Rash clavulanic acid [From Augmentin] Allergy (Unknown, Verified 11/22/24 08:36) Unknown cyclobenzaprine [From Flexeril] Allergy (Verified 11/22/24 08:36) Palpitations escitalopram Allergy (Verified 11/22/24 08:36) Palpitations hydralazine Allergy (Verified 11/22/24 08:36) Nausea and Vomiting lorazepam [From Ativan] Allergy (Verified 11/22/24 08:36) Palpitations nifedipine Allergy (Intermediate, Uncoded 11/22/24 08:36) Unknown Tobacco use date assessed: 11/22/24 Dental Screening Dental Screen Date: 10/14/24 HPI HPI Comments History of Present Illness Details 29 y/o female patient who presents to the clinic for HDF. Pmhx Significant for Migraine, asthma, anxiety, HTN, and GERD. She was admitted at [facility] for Seizure like episodes on 11/17/24 and discharged home 11/18/24. Unfortunately there are no discharge Hospital Notes available for review at this time. Records were requested but not received. Patient had a Neurologist appointment yesterday at [facility] but missed it. She will call today to reschedule. [facility] Medical History (Updated 11/22/24 @ 09:20 by Mariely Bah NP) Graves disease Graves' eye disease Pituitary microadenoma Psychogenic nonepileptic seizure Hyperthyroidism Essential hypertension Breast pain, left Overweight (BMI 25.0-29.9) Heavy menses Chronic constipation GERD without esophagitis Anemia HTN (hypertension) Anxiety Surgical History (Updated 11/22/24 @ 08:43 by TRAVIS Miranda) History of tubal ligation H/O tooth extraction (~12/10/22) H/O: Family History Paternal Aunt Breast cancer, Onset Age: 35 Maternal Aunt Breast cancer, Onset Age: 40 Other Diabetes High cholesterol Hypertension Social History Housing: House Alcohol intake: never Patient Tobacco Use Status: Never used Tobacco Tobacco use type: Cigarette e-Cigarette/Vaping Use: Never Used Second Hand Smoke Exposure: No service: No Current occupational status: unemployed Cognitive needs: No Hearing needs: No Vision needs: Yes (Glasses) Questionnaire Thrive Questionnaire Date Thrive assessed: 10/03/24 YULIYA-7 AMB Questionnaire YULIYA-7 Date YULIYA - 7 assessed: 10/03/24 Source: Developed by Drs. Fabio Johnson, Trinity Anand, Neymar Peterson and colleagues, with an educational sherley from [employer]. Review of Systems Const All systems reviewed & are unremarkable except as noted in HPI and below Physical exam (Primary Care) Vital Signs: Last Vital Signs Temp 97.1 F 11/22/24 08:37 Pulse 72 11/22/24 08:37 BP 110/64 11/22/24 08:37 Pulse Ox 100 11/22/24 08:37 Oxygen Delivery Method Room Air 11/22/24 08:37 BMI result Body Mass Index 30.7 Tobacco/Smoking Status: Tobacco use Status Tobacco use date assessed 11/22/24 11/22/24 08:44 Patient Tobacco Use Status Never used Tobacco 11/22/24 08:44 Tobacco use type Cigarette 11/22/24 08:44 e-Cigarette/Vaping Use Never Used 11/22/24 08:44 Thrive Assessment: Date of Thrive Assessment Date Thrive assessed 10/03/24 11/22/24 08:44 Const General: cooperative and no acute distress Nutritional Appearance: overweight Orientation/consciousness: patient oriented x3 Resp Effort & Inspection: normal respiratory effort and able to speak in complete sentences Auscultation: clear to auscultation bilaterally Cardio Heart sounds: S1 normal heart sound present and S2 normal heart sound present Neuro General: patient oriented x3, gait normal and moves all extremities Psych Speech and movement: Normal speech and movement present Coding Level of Care Code Est Pt Level 4 (74969) Diagnoses Convulsions, unspecified convulsion type R56.9 Convulsion type: unspecified Time Spent (min) 20 Assessment & Plan Assessment & Plan (1) Convulsions: Code(s): R56.9 - Unspecified convulsions Category: Medical Qualifiers: Convulsion type: unspecified Qualified Code(s): R56.9 - Unspecified convulsions Plan: Requested Notes from [facility]. Not clear if patient has True Seizure history. Pt to call [facility] Neurology to reschedule her missed appointment.
[2024-11-22 08:37] VITALS: BP 110/64; PULSE 72; TEMP 36.2; O2SAT 100; BMI 30.7
--- OUTSIDE RECORDS SUMMARY | 2024-11-22 08:42 | XMS_ITS | Clinical Summary ---
Author Organization [facility] ity Address [address] [place] [address] Care Team Providers Care Lead Installer Name Role Phone Jeffy Gutierrez MD Primary Care Provider [phone] Surgical History Surgery Date Site/Laterality Comments SECTION [...] Documents on File Type Date Recorded Patient Electrical Designer Expl anation Health Care Decision (hx) 08/30/2023 HE ALTH CARE PROXY Health Care Decision (hx) 08/30/2023 HE ALTH CARE PROXY Health Care Decision (hx) 08/30/2023 HE ALTH CARE PROXY Care Teams Lead Installer Relationship Specialty Start Date End Date Jeffy Gutierrez MD [address] [place] [address] Dr [address] JO-ANN Black PCP - General 10/25/23
--- OUTSIDE RECORDS SUMMARY | 2024-11-22 08:43 | XMS_ITS | Clinical Summary ---
Author Organization [facility] Address [address] [place] [address] Care Team Providers Care Chemical Compounder Name Role Phone Patient, Has No Pcp Or Ref Primary Care Provider Unavailable Allergies Active Allergy Reactions Criticality Noted Date Comments Escitalopram Oxalate Vomiting 11/17/2024 Lorazepam Hives 11/17/2024 Penicillins Hives 11/17/2024 Medications amLODIPine (NORVASC) 10 mg tablet Take 10 mg by mouth once a day. Active Encounters Date Type Department Care Team Description 11/17/2024 5:48 PM EDT - 11/18/2024 12:23 AM EDT Emergency [facility] Emergency Department [address] [place] [address] Rosette Franklin MD Seizure-like activity (HCC) (Primary [...] Completed 06/06/2024, 06/04/2019 Procedures * Due to [place] state law, this organization might not be [...] Last 3 Months Results * Due to [place] state law, this organization might not be [...] obtain the completed interpretation. ? Workstation ID: [id number] Narrative 11/17/2024 11:12 PM EDT INDICATION: 29 years Female who presents with/for Fatigue and malaise TECHNIQUE: Single view of the chest COMPARISON: None FINDINGS: Lines/Tubes/Support: Telemetry leads. Mediastinum: Cardiomediastinal silhouette is without acute findings. Trachea appears midline. Lungs/Pleura: Symmetrically inflated without focal consolidation, significant pleural effusion, or sizable pneumothorax. Musculoskeletal: No displaced fractures. Abdomen: No acute findings. Resulting Agency Comment [id number] Procedure Note Marco A Gonzalez MD - [...] possible to obtain thecompleted interpretation. Workstation ID: [id number] us Rosette Franklin MD IMG XR PROCEDURES Final Result * Repeat Troponin #1 (11/17/2024 10:10 PM EDT) Only the most recent of2 resultswithin the time period is included. Troponin T High Sensitivity <6 <=13 ng/L 11/17/2024 10:37 PM EDT [facility] Comment: Lr-Vjaojrpr-D level of 52 ng/L or higher at [...] be evaluated in line with the 4th [place] Definition of AMI. Troponin baseline and serial [...] MD LAB BLOOD ORDERABLES Final Resu lt [facility] [address] [place] [address], [place] * (ABNORMAL) Microscopic Urinalysis Only (11/17/2024 8:50 PM EDT) WBC, Urine 15-20(A) 0-2, None Seen /HPF [facility] MANUAL 11/17/2024 9:55 PM EDT [facility] RBC, Urine Too Numerous To Count(A) 0-2, None Seen /HPF [facility] MANUAL 11/17/2024 9:55 PM EDT [facility] Bacteria, Urine 1+(A) None Seen /HPF [facility] MANUAL 11/17/2024 9:55 PM EDT [facility] Squamous Epithelial Cells, Urine Moderate /HPF [facility] MANUAL 11/17/2024 9:55 PM EDT [facility] Trichomonas, Urine Present(A) None Seen /HPF [facility] MANUAL 11/17/2024 9:55 PM EDT [facility] Urine Urine specimen collection, clean catch / Unknown Non-Blood Collection / Unknown 11/17/2024 8:50 PM EDT 11/17/2024 8:55 PM EDT us Rosette Franklin MD LAB URINE ORDERABLES Final Resu lt [facility] [address] [place] [id number], [place] * (ABNORMAL) Urinalysis W/Reflex to Microscopic & Culture (11/17/2024 8:50 PM EDT) Color, Urine Yellow Yellow 11/17/2024 9:36 PM EDT [facility] Clarity, Urine Clear Clear 11/17/2024 9:36 PM EDT [facility] Specific [place], Urine 1.015 1.005 - 1.030 11/17/2024 9:36 PM EDT [facility] pH, Urine 7.0 5.0 - 8.0 11/17/2024 9:36 PM EDT [facility] Protein, Urine 30(A) Negative mg/dL 11/17/2024 9:36 PM EDT [facility] Glucose, Urine Negative Negative mg/dL 11/17/2024 9:36 PM EDT [facility] Ketones, Urine Negative Negative mg/dL 11/17/2024 9:36 PM EDT [facility] Bilirubin, Urine Negative Negative 11/17/2024 9:36 PM EDT [facility] Blood, Urine Large(A) Negative 11/17/2024 9:36 PM EDT [facility] Nitrite, Urine Negative Negative 11/17/2024 9:36 PM EDT [facility] Urobilinogen , Urine 0.2 0.2, 1.0 E.U./dL 11/17/2024 9:36 PM EDT [facility] Leukocyte Esterase, Urine Moderate(A) Negative 11/17/2024 9:36 PM EDT [facility] Urine Urine specimen collection, clean catch / Unknown Non-Blood Collection / Unknown 11/17/2024 8:50 PM EDT 11/17/2024 8:55 PM EDT Narrative [facility] - 11/17/2024 9:36 PM EDT Some urinalysis results will not meet the criteria for reflex urine culture although certain urine values may be abnormal. ??Additional testing can be ordered by the provider if clinically warranted. us Rosette Franklin MD LAB URINE ORDERABLES Final Resu lt [facility] [address] [place] [address], [place] * CT Head WO Contrast (11/17/2024 [...] obtain the completed interpretation. ? Workstation ID: [id number] Up-to-date CT equipment and radiation dose reduction [...] osseous lesions or fractures. Resulting Agency Comment [id number] Procedure Note Charleen Zhang MD - 11/17/2024 [...] possible to obtain thecompleted interpretation. Workstation ID: [id number] Up-to-date CT equipment and radiation dose reduction techniques wereemployed. CTDIvol: 45.8 mGy. DLP: 834 mGy-cm. us Rosette Franklin MD IM CT PROCEDURES Final Result * (ABNORMAL) CBC Auto Differential (11/17/2024 6:23 PM EDT) [facility] WBC 8.8 3.8 - 10.8 10*3/uL [...] - 0.20 10*3/uL 11/17/2024 6:37 PM EDT [facility] nRBC % 0.0 /100 WBCs 11/17/2024 6:37 PM EDT [facility] nRBC # <0.01 <0.01 10*3/uL 11/17/2024 6:37 PM EDT [facility] Blood Structure of peripheral vein / Unknown Venipuncture / Unknown 11/17/2024 6:23 PM EDT 11/17/2024 6:34 PM EDT Rosette Franklin MD LAB BLOOD ORDERABLES Final Resu lt Performing Organization Address [facility] Co de Phone Number [address] [address], [place] * hCG, Qualitative, Serum (11/17/2024 6:23 PM EDT) HCG Qualitative, Serum Negative Negative [facility] MANUAL 11/17/2024 6:59 PM EDT [facility] Comment: hCG may be negative in early . ??Suggest repeat testing in 2-4 days if clinically indicated. ??The results of this test should be interpreted with the patient's clinical presentation. Blood Structure of peripheral vein / Unknown Venipuncture / Unknown 11/17/2024 6:23 PM EDT 11/17/2024 6:34 PM EDT Rosette Franklin MD LAB BLOOD ORDERABLES Final Resu lt Performing Organization Address City/[facility]/ZIP Co de Phone Number [facility] [address] [place] [phone], [place] * Magnesium (11/17/2024 6:23 PM EDT) MG 2.0 1.6 - 2.4 mg/dL 11/17/2024 7:07 PM EDT [facility] Blood Structure of peripheral vein / Unknown Venipuncture / Unknown 11/17/2024 6:23 PM EDT 11/17/2024 6:34 PM EDT us Rosette Franklin MD LAB BLOOD ORDERABLES Final Resu lt [facility] [address] [place] [address], [place] * BMP - Basic Metabolic Panel (11/17/2024 6:23 PM EDT) NA 137 135 - 145 mmol/L 11/17/2024 7:07 PM EDT [facility] K 3.9 3.5 - 5.3 mmol/L 11/17/2024 7:07 PM EDT [facility] Cl 101 98 - 107 mmol/L 11/17/2024 7:07 PM EDT [facility] CO2 23 22 - 32 mmol/L 11/17/2024 7:07 PM EDT [facility] BUN 17 7 - 23 mg/dL 11/17/2024 7:07 PM EDT [facility] Creatinine 0.76 0.50 - 1.20 mg/dL 11/17/2024 7:07 PM EDT [facility] Glucose 91 65 - 99 mg/dL 11/17/2024 7:07 PM EDT [facility] Calcium 9.1 8.6 - 10.5 mg/dL 11/17/2024 7:07 PM EDT [facility] Anion Gap 13 5 - 15 11/17/2024 7:07 PM EDT [facility] eGFR >90 >=60 mL/min/1. 73m2 11/17/2024 7:07 PM EDT [facility] Comment:The estimated glomer ular filtration [...] MD LAB BLOOD ORDERABLES Final Resu lt [facility] [address] [place] [address], [place] from Last 3 Months Insurance [facility] [employer] Care Teams Chemical Compounder Relationship Specialty Start Date End Date Patient, Has No Pcp Or Ref DO NOT EDIT THIS RECORD VIA PROVIDER ON THE FLY PCP - General Supply Chain Buyer 11/17/24
--- OUTSIDE RECORDS SUMMARY | 2024-11-22 08:43 | XMS_ITS | Referral Summary ---
Author Organization [facility] Address [address] [place] [address] Care Team Providers Care Field Account Director Name Role Phone Patient, Has No Pcp Or Ref Primary Care Provider Unavailable Encounters Date Type Department Care Team Description 11/17/2024 5:48 PM EDT - 11/18/2024 12:23 AM EDT Emergency [facility] Emergency Department [address] [place] [address] Rosette Franklin MD Seizure-like activity (HCC) (Primary [...] Not on file Procedures * Due to [place] state law, this organization might not be [...] Last 3 Months Results * Due to [place] law, this organization might not be sharing [...] obtain the completed interpretation. ? Workstation ID: [id number] Narrative 11/17/2024 11:12 PM EDT INDICATION: 29 years Female who presents with/for Fatigue and malaise TECHNIQUE: Single view of the chest COMPARISON: None FINDINGS: Lines/Tubes/Support: Telemetry leads. Mediastinum: Cardiomediastinal silhouette is without acute findings. Trachea appears midline. Lungs/Pleura: Symmetrically inflated without focal consolidation, significant pleural effusion, or sizable pneumothorax. Musculoskeletal: No displaced fractures. Abdomen: No acute findings. Resulting Agency Comment [id number] Procedure Note Marco A Gonzalez MD - [...] possible to obtain thecompleted interpretation. Workstation ID: [id number] us Rosette Franklin MD IMG XR PROCEDURES Final Result * Repeat Troponin #1 (11/17/2024 10:10 PM EDT) Only the most recent of2 resultswithin the time period is included. Pathologist [facility] Troponin T High Sensitivity <6 <=13 ng/L 11/17/2024 10:37 PM EDT [facility] Comment: Ha-Vsskitez-E level of 52 ng/L or higher at [...] be evaluated in line with the 4th [place] Definition of AMI. Troponin baseline and serial [...] MD LAB BLOOD ORDERABLES Final Resu lt [facility] [address] [place] [address], * (ABNORMAL) Microscopic Urinalysis Only (11/17/2024 8:50 PM EDT) WBC, Urine 15-20(A) 0-2, None Seen /HPF [facility] MANUAL 11/17/2024 9:55 PM EDT [facility] RBC, Urine Too Numerous To Count(A) 0-2, None Seen /HPF [facility] MANUAL 11/17/2024 9:55 PM EDT [facility] Bacteria, Urine 1+(A) None Seen /HPF [facility] MANUAL 11/17/2024 9:55 PM EDT [facility] Squamous Epithelial Cells, Urine Moderate /HPF [facility] MANUAL 11/17/2024 9:55 PM EDT [facility] Trichomonas, Urine Present(A) None Seen /HPF [facility] MANUAL 11/17/2024 9:55 PM EDT [facility] Urine Urine specimen collection, clean catch / Unknown Non-Blood Collection / Unknown 11/17/2024 8:50 PM EDT 11/17/2024 8:55 PM EDT us Rosette Franklin MD LAB URINE ORDERABLES Final Resu lt [facility] [address] [place] [address], [place] * (ABNORMAL) Urinalysis W/Reflex to Microscopic & Culture (11/17/2024 8:50 PM EDT) Color, Urine Yellow Yellow 11/17/2024 9:36 PM EDT [facility] Clarity, Urine Clear Clear 11/17/2024 9:36 PM EDT [facility] Specific [place], Urine 1.015 1.005 - 1.030 11/17/2024 9:36 PM EDT [facility] pH, Urine 7.0 5.0 - 8.0 11/17/2024 9:36 PM EDT [facility] Protein, Urine 30(A) Negative mg/dL 11/17/2024 9:36 PM EDT [facility] Glucose, Urine Negative Negative mg/dL 11/17/2024 9:36 PM EDT [facility] Ketones, Urine Negative Negative mg/dL 11/17/2024 9:36 PM EDT [facility] Bilirubin, Urine Negative Negative 11/17/2024 9:36 PM EDT [facility] Blood, Urine Large(A) Negative 11/17/2024 9:36 PM EDT [facility] Nitrite, Urine Negative Negative 11/17/2024 9:36 PM EDT [facility] Urobilinogen , Urine 0.2 0.2, 1.0 E.U./dL 11/17/2024 9:36 PM EDT [facility] Leukocyte Esterase, Urine Moderate(A) Negative 11/17/2024 9:36 PM EDT [facility] Urine Urine specimen collection, clean catch / Unknown Non-Blood Collection / Unknown 11/17/2024 8:50 PM EDT 11/17/2024 8:55 PM EDT Narrative [facility] - 11/17/2024 9:36 PM EDT Some urinalysis results will not meet the criteria for reflex urine culture although certain urine values may be abnormal. ??Additional testing can be ordered by the provider if clinically warranted. us Rosette Franklin MD LAB URINE ORDERABLES Final Resu lt [facility] [address] [place] [address], [place] * CT Head WO Contrast (11/17/2024 [...] obtain the completed interpretation. ? Workstation ID: [id number] Up-to-date CT equipment and radiation dose reduction [...] osseous lesions or fractures. Resulting Agency Comment [id number] Procedure Note Charleen Zhang MD - 11/17/2024 [...] possible to obtain thecompleted interpretation. Workstation ID: [id number] Up-to-date CT equipment and radiation dose reduction techniques wereemployed. CTDIvol: 45.8 mGy. DLP: 834 mGy-cm. Rosette Franklin MD IM CT PROCEDURES Final Result * (ABNORMAL) CBC Auto Differential (11/17/2024 6:23 PM EDT) Pathologist [facility] WBC 8.8 3.8 - 10.8 10*3/uL 11/17/2024 6:37 PM EDT [facility] RBC 4.68 3.80 - 5.10 10*6/uL 11/17/2024 6:37 PM EDT [facility] Hemoglobin 11.7 11.7 - 15.5 g/dL 11/17/2024 6:37 PM EDT [facility] Hematocrit 36.3 35.0 [...] - 7.80 10*3/uL 11/17/2024 6:37 PM EDT [facility] Immature Grans # 0.03 <=0.03 10*3/uL 11/17/2024 6:37 PM EDT [facility] Lymphocyte # 2.20 0.85 - 3.90 10*3/uL 11/17/2024 6:37 PM EDT [facility] Monocyte # 0.50 0.20 - 0.95 10*3/uL 11/17/2024 6:37 PM EDT [facility] Eosinophil # 0.20 0.02 - 0.50 10*3/uL 11/17/2024 6:37 PM EDT [facility] Basophil # 0.10 0.00 - 0.20 10*3/uL 11/17/2024 6:37 PM EDT [facility] nRBC % 0.0 /100 WBCs 11/17/2024 6:37 PM EDT [facility] nRBC # <0.01 <0.01 10*3/uL 11/17/2024 6:37 PM EDT [facility] Blood Structure of peripheral vein / Unknown Venipuncture / Unknown 11/17/2024 6:23 PM EDT 11/17/2024 6:34 PM EDT us Rosette Franklin MD LAB BLOOD ORDERABLES Final Resu lt [facility] [address] [place] [address], [place] * hCG, Qualitative, Serum (11/17/2024 6:23 PM EDT) HCG Qualitative, Serum Negative Negative [facility]UAL 11/17/2024 6:59 PM EDT [facility] Comment: hCG may be negative in early . ??Suggest repeat testing in 2-4 days if clinically indicated. ??The results of this test should be interpreted with the patient's clinical presentation. Blood Structure of peripheral vein / Unknown Venipuncture / Unknown 11/17/2024 6:23 PM EDT 11/17/2024 6:34 PM EDT Rosette Franklin MD LAB BLOOD ORDERABLES Final Resu lt Performing Organization Address City/[facility]/ZIP Co de Phone Number [facility] [address] [place] [phone], * Magnesium (11/17/2024 6:23 PM EDT) MG 2.0 1.6 - 2.4 mg/dL 11/17/2024 7:07 PM EDT [facility] Blood Structure of peripheral vein / Unknown Venipuncture / Unknown 11/17/2024 6:23 PM EDT 11/17/2024 6:34 PM EDT us Rosette Franklin MD LAB BLOOD ORDERABLES Final Resu lt Performing Organization Address City/[facility]/ZIP Co de Phone Number [facility] [address] [place] [phone], [place] * BMP - Basic Metabolic Panel (11/17/2024 6:23 PM EDT) NA 137 135 - 145 mmol/L 11/17/2024 7:07 PM EDT [facility] K 3.9 3.5 - 5.3 mmol/L 11/17/2024 7:07 PM EDT [facility] Cl 101 98 - 107 mmol/L 11/17/2024 7:07 PM EDT [facility] CO2 23 22 - 32 mmol/L 11/17/2024 7:07 PM EDT [facility] BUN 17 7 - 23 mg/dL 11/17/2024 7:07 PM EDT [facility] Creatinine 0.76 0.50 - 1.20 mg/dL 11/17/2024 7:07 PM EDT [facility] Glucose 91 65 - 99 mg/dL 11/17/2024 7:07 PM EDT [facility] Calcium 9.1 8.6 - 10.5 mg/dL 11/17/2024 7:07 PM EDT [facility] Anion Gap 13 5 - 15 11/17/2024 7:07 PM EDT [facility] eGFR >90 >=60 mL/min/1. 73m2 11/17/2024 7:07 PM EDT [facility] Comment:The estimated glomer ular filtration [...] MD LAB BLOOD ORDERABLES Final Resu lt [facility] [address] [place] [phone], from Last 3 Months Insurance [facility] [employer]ICA[employer] Care Teams Field Account Director Relationship Specialty Start Date End Date Patient, Has No Pcp Or Ref DO NOT EDIT THIS RECORD VIA PROVIDER ON THE FLY PCP - General Network Contract Manager 11/17/24
--- OUTSIDE RECORDS SUMMARY | 2024-11-22 08:43 | XMS_ITS | Encounter Summary ---
Author Organization [facility] Address [address] [place] [address] Care Team Providers Care Applier Name Role Phone Patient, Has No Pcp Or Ref Primary Care Provider Unavailable Reason for Visit * Reason Comments Seizure Encounter Details Date Type Department Care Team (Late st Contact Info) Description 11/17/2024 5:48 PM EDT - 11/18/2024 12:23 AM EDT Emergency [facility] Emergency Department [address] [place] [address] Rosette Franklin MD [address] [place] [id number] Seizure-like activity (HCC) (Primary Dx) Discharge Disposition: [...] que kern neurolog??a le autorice a hacerlo. Nambe Tylenol e ibuprofeno para el dolor.Regrese al departamento de emergencias si tiene alguna inquietud. documented in this encounter Medications at Time of Discharge amLODIPine (NORVASC) 10 mg tablet Take 10 mg by mouth once a day. documented as of this encounter ED Notes * Rosette Franklin MD - 11/17/2024 5:47 PM EDT History HPI: No chief complaint on file. HPI 29-year-old Mongolian-speaking female with history of hyperthyroidism presenting to the emergency department with seizure. Reportedly had seizure-like activity at home. EMS witnessed an approximately 1.5-minute seizure and gave 2 mg of IM Versed. Patient reports history of seizures which she has had several times was never seen a neurologist and is not on any antiepileptics. Does note she has a neurology appointment at [facility] next week. Notes that she lives closer to [facility] but was here visiting family) takes [...] normal. Medical Decision Making and ED Course [facility] ED Course as of 11/17/24 2247 Sun Nov 17, 2024 215 Blood, Urine(!): Large On menstrual cycle [] 2224 Troponin T High Sensitivity: <6 [AH] ED Course User Index [AH] Rosette Franklin MD 29-year-old Mongolian-speaking female with history of hyperthyroidism presenting to the emergency department with seizure. Due to patient being from out of the area I did not have any records on her. She does not have any tachycardia or significant hypertension that would be concerning for thyroid storm. I spoke at length with patient's spouse. It sounds as if she has been evaluated at [facility] multiple times for these episodes. He [...] No prior. Dain Nelson : 1995 CSN: [id number] Rosette Franklin MD 11/17/24 2258 documented in this encounter Miscellaneous Notes * Emergency Department Information Exchange - SHERIN - Sherin Interface - 11/17/2024 6:31 PM EDT [facility] NOTIFICATION 11/17/2024 17:48 DAIN NELSON : 1995 [facility]'s patient encounter information: MRN:?[id number] Account Number:?[id number] Billing Account Number:?[id number] Criteria Met High-UtilizersStandard: 6 ED visits within 6 months Traveling Patients Standard: 3 Different EDs within 90 days Security and Safety No Security Events were found. ED Care Guidelines There are currently no ED Care Guidelines for this patient. Please check your facility's medical records system. Prescription Drug Data No Prescription Drug Data was found. E.D. Visit Count (12 mo.) Facility Visits [facility] 11 [facility] 3 [facility] 1 Total 15 Note: Visits indicate total known visits. Recent Emergency Department Visit Summary Showing 10 most recent visits out of 15 in the past 12 months Date Facility City State Type Diagnoses or Chief Complaint Nov 17, 2024 [facility] [place] Emergency Seizure Oct 20, 2024 [facility] Emergency Chief Complaint: [place] full time staff interpreter needed diff breathing Oct 17, 2024 [facility] Emergency 1. Trichomoniasis, unspecified 1. Pelvic and perineal pain 2. Influenza due to other identified influenza virus with other respiratory manifestations 3. Unspecified convulsions 4. Acculturation difficulty 5. 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 Influenza due to unidentified influenza virus with other respiratory manifestations Oct 12, 2024 [facility] Emergency 99. Unspecified convulsions Oct 09, 2024 [facility] Emergency Chief Complaint: SZ Oct 07, 2024 [facility] Emergency 2. Other chest pain 3. Essential (primary) hypertension 4. 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 Migraine, unspecified, not intractable, without status migrainosus 6. Other rug cleaner helper (current) drug therapy 7. Encounter for screening for COVID-19 99. Syncope and collapse 99. Chest pain, unspecified Oct 02, 2024 [facility] Emergency 2. Dizziness and giddiness 4. Unspecified pre-eclampsia, complicating the puerperium 5. Acculturation difficulty 6. Encounter for screening for COVID-19 7. Shortness of breath 8. 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 Chest pain, unspecified 99. Nausea Sep 17, 2024 [facility] Emergency 1. Infection of bladder following delivery 3. Endocrine, nutritional and metabolic diseases complicating the puerperium 5. Other complications of the puerperium, not elsewhere classified 7. Headache, unspecified 8. Bradycardia, unspecified 9. Encounter for screening for COVID-19 10. Acculturation difficulty 99. Dehydration 99. Syncope and collapse 99. Dizziness and giddiness [facility] [place] [facility] 1. Other chest pain 2. Nausea with vomiting, unspecified 3. Diarrhea, unspecified 5. Abnormal uterine and vaginal bleeding, unspecified 6. Other rug cleaner helper (current) drug therapy 7. Encounter for screening for COVID-19 99. Vomiting, unspecified 99. Syncope and collapse Jun 05, 2024 [facility] [place] [facility] 99. Other specified health status 99. Headache, unspecified 99. Unspecified pre-existing hypertension complicating , unspecified trimester Recent Inpatient Visit Summary Date Facility [facility] Type Diagnoses or Chief Complaint [facility] 20[facility] [place] [facility] [place] [facility] 99. Severe pre-eclampsia, third trimester 99. [...] complicating , unspecified trimester [facility] [place] [facility]. Encounter for other general counseling [...] scar from previous surgery [facility] [place] [facility] 99. Urinary tract infection, site not [...] trimester 99. Headache, unspecified May 30, 2024 [facility] Elinor [place] Obstetrics 99. Other [...] Current RODGER LOMBARDO MD Internal Medicine Current [employer] This patient has registered at the [facility] Emergency Department For more information visit: [email or web address] PLEASE NOTE: 1. Any care recommendations and other clinical information are provided as guidelines or for historical purposes only, and providers should exercise their own clinical judgment when providing care. 2. You may only use this information for purposes of treatment, payment or health care operations activities, and subject to the limitations of applicable [employer] Policies. 3. You should consult directly with the organization that provided a care guideline or other clinical history with any questions about additional information or accuracy or completeness of information provided. ? 2024 [employer] documented in this encounter Plan of Treatment Pending Results Name Type Priority Associated Diagnoses Date /Time Urine Culture, Routine Microbiology Routine 11/17/2024 8:50 PM EDT documented as of this encounter Procedures * Due to [place] state law, this organization might not be [...] in this encounter Results * Due to [place] state law, this organization might not be [...] obtain the completed interpretation. ? Workstation ID: [id number] Narrative 11/17/2024 11:12 PM EDT INDICATION: 29 years Female who presents with/for Fatigue and malaise TECHNIQUE: Single view of the chest COMPARISON: None FINDINGS: Lines/Tubes/Support: Telemetry leads. Mediastinum: Cardiomediastinal silhouette is without acute findings. Trachea appears midline. Lungs/Pleura: Symmetrically inflated without focal consolidation, significant pleural effusion, or sizable pneumothorax. Musculoskeletal: No displaced fractures. Abdomen: No acute findings. Resulting Agency Comment [id number] Procedure Note Marco A Gonzalez MD - [...] possible to obtain thecompleted interpretation. Workstation ID: [id number] Rosette Franklin MD IMG XR PROCEDURES Final Result * Repeat Troponin #1 (11/17/2024 10:10 PM EDT) Troponin T High Sensitivity <6 <=13 ng/L 11/17/2024 10:37 PM EDT [facility] Comment: Ag-Axflxtey-R level of 52 ng/L or higher at [...] be evaluated in line with the 4th Sondheimer Definition of AMI. Troponin baseline and serial [...] MD LAB BLOOD ORDERABLES Final Resu lt [facility] [address] [place] [address], [place] * Troponin T, High Sensitivity (11/17/2024 9:18 PM EDT) Troponin T High Sensitivity <6 <=13 ng/L 11/17/2024 10:01 PM EDT [facility] Comment: Nv-Lykvirog-O level of 52 ng/L or higher at [...] be evaluated in line with the 4th Sondheimer Definition of AMI. Troponin baseline and serial [...] MD LAB BLOOD ORDERABLES Final Resu lt [facility] [address] [place] [id number], [place] * (ABNORMAL) Microscopic Urinalysis Only (11/17/2024 8:50 PM EDT) WBC, Urine 15-20(A) 0-2, None Seen /HPF [facility] 11/17/2024 9:55 PM EDT [facility] RBC, Urine Too Numerous To Count(A) 0-2, None Seen /HPF [facility] 11/17/2024 9:55 PM EDT [facility] Bacteria, Urine 1+(A) None Seen /HPF [facility] 11/17/2024 9:55 PM EDT [facility] Squamous Epithelial Cells, Urine Moderate /HPF [facility] 11/17/2024 9:55 PM EDT [facility] Trichomonas, Urine Present(A) None Seen /HPF [facility] 11/17/2024 9:55 PM EDT [facility] Urine Urine specimen collection, clean catch / Unknown Non-Blood Collection / Unknown 11/17/2024 8:50 PM EDT 11/17/2024 8:55 PM EDT us Rosette Franklin MD LAB URINE ORDERABLES Final Resu lt [facility] [address] [place] [id number], [place] * (ABNORMAL) Urinalysis W/Reflex to Microscopic & Culture (11/17/2024 8:50 PM EDT) Color, Urine Yellow Yellow 11/17/2024 9:36 PM EDT [facility] Clarity, Urine Clear Clear 11/17/2024 9:36 PM EDT [facility] Specific Gardner, Urine 1.015 1.005 - 1.030 11/17/2024 9:36 PM EDT [facility] pH, Urine 7.0 5.0 - 8.0 11/17/2024 9:36 PM EDT [facility] Protein, Urine 30(A) Negative mg/dL 11/17/2024 9:36 PM EDT [facility] Glucose, Urine Negative Negative mg/dL 11/17/2024 9:36 PM EDT [facility] Ketones, Urine Negative Negative mg/dL 11/17/2024 9:36 PM EDT [facility] Bilirubin, Urine Negative Negative 11/17/2024 9:36 PM EDT [facility] Blood, Urine Large(A) Negative 11/17/2024 9:36 PM EDT [facility] Nitrite, Urine Negative Negative 11/17/2024 9:36 PM EDT [facility] Urobilinogen , Urine 0.2 0.2, 1.0 E.U./dL 11/17/2024 9:36 PM EDT [facility] Leukocyte Esterase, Urine Moderate(A) Negative 11/17/2024 9:36 PM EDT [facility] Urine Urine specimen collection, clean catch / Unknown Non-Blood Collection / Unknown 11/17/2024 8:50 PM EDT 11/17/2024 8:55 PM EDT [facility] - 11/17/2024 9:36 PM EDT Some urinalysis results will not meet the criteria for reflex urine culture although certain urine values may be abnormal. ??Additional testing can be ordered by the provider if clinically warranted. us Rosette Franklin MD LAB URINE ORDERABLES Final Resu lt [facility] [address] [place] [address], [place] * CT Head WO Contrast (11/17/2024 [...] obtain the completed interpretation. ? Workstation ID: [id number] Up-to-date CT equipment and radiation dose reduction [...] osseous lesions or fractures. Resulting Agency Comment [id number] Procedure Note Charleen Zhang MD - 11/17/2024 [...] possible to obtain thecompleted interpretation. Workstation ID: [id number] Up-to-date CT equipment and radiation dose reduction techniques wereemployed. CTDIvol: 45.8 mGy. DLP: 834 mGy-cm. us Rosette Franklin MD IMG CT PROCEDURES Final Result * hCG, Qualitative, Serum (11/17/2024 6:23 PM EDT) HCG Qualitative, Serum Negative Negative [facility] 11/17/2024 6:59 PM EDT [facility] Comment: hCG may be [...] lt Performing Organization Address [facility] Co de Phone Number [facility] [address] [place] [id number], * Magnesium (11/17/2024 6:23 PM EDT) MG 2.0 1.6 - 2.4 mg/dL 11/17/2024 7:07 PM EDT [facility] Blood Structure of peripheral vein / Unknown Venipuncture / Unknown 11/17/2024 6:23 PM EDT 11/17/2024 6:34 PM EDT us Rosette Franklin MD LAB BLOOD ORDERABLES Final Resu lt [facility] [address] [place] [address], [place] * BMP - Basic Metabolic Panel (11/17/2024 6:23 PM EDT) NA 137 135 - 145 mmol/L 11/17/2024 7:07 PM EDT [facility] K 3.9 3.5 - 5.3 mmol/L 11/17/2024 7:07 PM EDT [facility] Cl 101 98 - 107 mmol/L 11/17/2024 7:07 PM EDT [facility] CO2 23 22 - 32 mmol/L 11/17/2024 7:07 PM EDT [facility] BUN 17 7 - 23 mg/dL 11/17/2024 7:07 PM EDT [facility] Creatinine 0.76 0.50 - 1.20 mg/dL 11/17/2024 7:07 PM EDT [facility] Glucose 91 65 - 99 mg/dL 11/17/2024 7:07 PM EDT [facility] Calcium 9.1 8.6 - 10.5 mg/dL 11/17/2024 7:07 PM EDT [facility] Anion Gap 13 5 - 15 11/17/2024 7:07 PM EDT [facility] eGFR >90 >=60 mL/min/1. 73m2 11/17/2024 7:07 PM EDT [facility] Comment:The estimated glomer [...] MD LAB BLOOD ORDERABLES Final Resu lt [facility] [address] [place] [address], * (ABNORMAL) CBC Auto Differential (11/17/2024 6:23 PM EDT) WBC 8.8 3.8 - 10.8 10*3/uL 11/17/2024 6:37 PM EDT [facility] RBC 4.68 3.80 - 5.10 10*6/uL 11/17/2024 6:37 PM EDT [facility] Hemoglobin 11.7 11.7 - 15.5 g/dL 11/17/2024 6:37 PM EDT [facility] Hematocrit 36.3 35.0 - 45.0 % 11/17/2024 6:37 PM EDT [facility] MCV 77.6(L) 80.0 - 100.0 fL 11/17/2024 6:37 PM EDT [facility] MCH 25.0(L) 27.0 [...] - 0.95 10*3/uL 11/17/2024 6:37 PM EDT [facility] Eosinophil # 0.20 0.02 - 0.50 10*3/uL 11/17/2024 6:37 PM EDT [facility] Basophil # 0.10 0.00 - 0.20 10*3/uL 11/17/2024 6:37 PM EDT [facility] nRBC % 0.0 /100 WBCs 11/17/2024 6:37 PM EDT [facility] nRBC # <0.01 <0.01 10*3/uL 11/17/2024 6:37 PM EDT [facility] Blood Structure of peripheral vein / Unknown Venipuncture / Unknown 11/17/2024 6:23 PM EDT 11/17/2024 6:34 PM EDT us Rosette Franklin MD LAB BLOOD ORDERABLES Final Resu lt [facility] [address] [place] [address], documented in this encounter Visit Diagnoses Diagnosis [...] RN) documented in this encounter Care Teams Applier Relationship Specialty Start Date End Date Patient, Has No Pcp Or Ref DO NOT EDIT THIS RECORD VIA PROVIDER ON THE FLY PCP - General Machine Setter And Repairer 11/17/24 documented as of this encounter
== END 2024-11-22 09:48 | disposition home or self-care (01) ==
LOC: HO.HMCH 08:31
PROVIDERS: PCP Internal Medicine; Visit Provider Nurse Practitioner Family
DX: R56.9 Unspecified convulsions (principal)

== ENCOUNTER 2024-11-22 11:39 | Emergency (ER) | payer OTHER, SELFPAY ==
--- NOTE | ~2024-11-22 | CT_ITS ---
EXAMINATION: CT HEAD AND FACIAL BONES WITHOUT CONTRAST CLINICAL INFORMATION: Syncope, fall, nasal trauma. COMPARISON: CT head 09/01/2023, 02/10/2023. TECHNIQUE: Contiguous axial imaging was performed from the skull base to vertex and facial bones without intravenous administration of contrast. Multiplanar reformatted images were constructed from the axial data set. This CT examination was performed using dose optimization techniques as appropriate, variously including the following: *Automated exposure control *Adjustment of mA and/or kV according to patient size (this includes techniques or standardized protocols for targeted exams where dose is matched to indication/reason for exam; i.e. extremities or head) *Use of iterative reconstruction technique FINDINGS: CT HEAD: There is no evidence of intracranial hemorrhage or extra-axial fluid collection. There is no mass effect, or edema. No CT evidence of acute territorial infarct. Ventricles, sulci, and cisterns are normal in size and configuration for patient age. No hydrocephalus. No midline shift. Negative hyperdense MCA sign. Negative insular ribbon sign. White matter abnormalities. Normal pituitary. No suspicious bony abnormalities. Calvarium and skull base are intact. No extracranial soft tissue abnormality. CT MAXILLOFACIAL BONES: No mandibular or maxillofacial fracture is identified. The nasal bones, nasal septum, and nasal process are intact. Mandible and TM joints are intact. Large periapical lucency identified involving the root tip of tooth #10 (series 22, image 30). There are small right maxillary molar root tip periapical lucencies. Paranasal sinuses demonstrate minimal bilateral maxillary mucosal thickening. Sinuses, mastoids, and tympanic cavities otherwise normally aerated. Orbits are intact. Globes and orbital contents appear normal. No soft tissue abnormality. There is cerumen within the left greater than right EACs. CT/CT facial bones wo IV con IMPRESSION: 1. No acute intracranial abnormality. No calvarial fracture. 2. No acute maxillofacial or mandibular fracture. 3. Prominent periapical lucency involving the root tip of tooth #10. There are additional small right maxillary molar root tip periapical lucencies. 4. Mild maxillary sinus mucosal disease. Electronically signed by: Marco A Lucio MD 11/22/2024 01:05 PM EDT
--- NOTE | ~2024-11-22 | CT_ITS ---
EXAMINATION: CT CERVICAL SPINE WITHOUT CONTRAST CLINICAL INFORMATION: Fall with head strike COMPARISON: None available. TECHNIQUE: 3 mm thin axial and reformatted 2 mm thin sagittal and coronal images of cervical spine were obtained without contrast. This CT examination was performed using dose optimization techniques as appropriate, variously including the following: *Automated exposure control *Adjustment of mA and/or kV according to patient size (this includes techniques or standardized protocols for targeted exams where dose is matched to indication/reason for exam; i.e. extremities or head) *Use of iterative reconstruction technique DLP: 1266 mGy/cm. FINDINGS: Straightening of cervical lordosis. The vertebral heights, alignment and disc heights are normal. The craniovertebral junction and the C1-C2 alignment is normal. There is no visible acute fracture, dislocation or subluxation seen. There is no disc bulge, herniation or spinal canal stenosis at any of the disc levels. The neural foramina patent bilaterally. The central airway and the lung apices are clear. The prevertebral and paravertebral soft tissues are normal. Thyroid lobes are symmetric and normal. CT/CT cervical spine wo IV con IMPRESSION: Unremarkable cervical spine exam Fleischner guidelines were followed. Electronically signed by: Garret Howell MD 11/22/2024 01:08 PM EDT RP
--- NOTE | ~2024-11-22 | CT_ITS ---
EXAMINATION: CT ANGIOGRAM CHEST CLINICAL INFORMATION: Syncope, recent surgery, concern for PE. COMPARISON: None available. TECHNIQUE: Multiple axial images were obtained through the chest after the administration of 65 mL of Omnipaque 350 intravenous contrast. Extensive vascular post-processing including two-dimensional and three-dimensional reformatted images were created and reviewed on an independent workstation. This CT examination was performed using dose optimization techniques as appropriate, variously including the following: *Automated exposure control *Adjustment of mA and/or kV according to patient size (this includes techniques or standardized protocols for targeted exams where dose is matched to indication/reason for exam; i.e. extremities or head) *Use of iterative reconstruction technique FINDINGS: VASCULAR: There is no evidence of pulmonary embolus. Normal size main pulmonary artery. Normal aorta. Top normal cardiac size. No right heart strain are reflux of contrast into the IVC. No pericardial effusion. LUNGS: 3 mm nodule posterior right upper lobe (series 8, image 49). 2 mm nodule lateral left upper lobe (series 8, image 39). No additional pulmonary nodules. Lungs clear. No consolidations or abnormal opacities. No pleural effusion or pneumothorax. Small airways normal. Central airways normal. MEDIASTINUM: Mediastinum is normal in appearance. There is no adenopathy, or esophageal abnormality. Normal thyroid. AXILLA/CHEST WALL: No lymphadenopathy. UPPER ABDOMEN: Unremarkable. OSSEOUS STRUCTURES: No suspicious lytic or blastic bone lesions. Normal appearance. CT/CT angio chest PE protocol IMPRESSION: 1. No evidence of pulmonary embolism. No evidence of acute aortic syndrome. 2. Lungs are clear without evidence of active disease. 3. There are 2 tiny micronodules present. One-year follow-up recommended only in a high-risk patient. Electronically signed by: Marco A Lucio MD 11/22/2024 03:06 PM EDT
--- NOTE | 2024-11-22 11:41 | ECG_ITS ---
Test Reason : cp Blood Pressure : */* mmHG Vent. Rate : 69 BPM Atrial Rate : 69 BPM P-R Int : 152 ms QRS Dur : 104 ms QT Int : 376 ms P-R-T Axes : 69 34 31 degrees QTcB Int : 402 ms Normal sinus rhythm Minimal voltage criteria for LVH, may be normal variant ( R in aVL ) Borderline ECG When compared with ECG of 20-Oct-2024 03:54, No significant change was found Referred By: Zuly Mao Electronically Signed By: RINA BROWN
--- NOTE | 2024-11-22 11:42 | ED_ITS ---
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 Patient states that she was looking for clothes for her child when she started to feel like she was going to pass out, then she did. Patient states that this has happened before and she has been worked up and told everything was OK. Patient denies any dizziness, lightheadedness, abdominal pain, nausea, vomiting, fever, chills, blurry vision, double vision, loss of vision, chest pain, difficulty breathing, shortness of breath, back pain, night sweats, pain with urination, increased urinary frequency, increased urinary urgency, blood in her urine or stool, recent trauma or falls, bowel incontinence, bladder incontinence, or any other complaints at this time. Relieving factors: none Exacerbating factors: none Associated symptoms: syncope Treatments prior to arrival: none Related Data Previous Rx's ?Medication ?Instructions ?Recorded miscellaneous medical supply #1 ea 03/30/23 (Blood Pressure Cuff) magnesium oxide 400 mg (241.3 mg 400 mg PO BEDTIME 30 days #30 tabs 01/31/24 magnesium) tablet sennosides 8.6 mg tablet (Senna 8.6 mg PO BEDTIME PRN constipation 02/01/24 Lax) #30 tabs diphenhydramine HCl 25 mg capsule 25 mg PO TID PRN allergic reaction 05/07/24 (Benadryl) or migraine headache 30 days #30 caps amlodipine 10 mg tablet 10 mg PO DAILY 90 days #90 tabs 10/14/24 propranolol 10 mg tablet 15 mg (1.5 x 10 mg) PO BID 90 days 10/14/24 #270 tabs sertraline 50 mg tablet 75 mg (1.5 x 50 mg) PO DAILY 30 10/14/24 days #45 tabs albuterol sulfate 1.25 mg/3 mL 1.25 mg (3 mL) inhalation Q4-6H 10/20/24 solution for nebulization PRN bronchospasm #90 mL albuterol sulfate 90 mcg/actuation 2 inh inhalation Q4-6H PRN 10/20/24 breath activated powder shortness of breath or wheezing #1 inhaler,sensor (Proair Digihaler) ea cefuroxime axetil 250 mg tablet 250 mg PO BID 7 days #14 tabs 11/22/24 Allergies Allergy/AdvReac Type Severity Reaction Status Date / Time morphine Allergy Severe Vomiting Verified 11/22/24 11:45 chlorthalidone Allergy Intermediate Chest Pain Verified 11/22/24 11:49 glucagon Allergy Intermediate Unknown Verified 11/22/24 11:49 guaifenesin [From Mucinex] Allergy Intermediate Unknown Verified 11/22/24 11:45 latex Allergy Intermediate Rash Verified 11/22/24 11:48 amoxicillin Allergy Mild Rash Verified 11/22/24 11:45 clavulanic acid Allergy Unknown Unknown Verified 11/22/24 11:45 [From Augmentin] cyclobenzaprine Allergy Palpitation Verified 11/22/24 11:45 [From Flexeril] s escitalopram Allergy Palpitation Verified 11/22/24 11:45 s hydralazine Allergy Nausea and Verified 11/22/24 11:45 Vomiting lorazepam [From Ativan] Allergy Palpitation Verified 11/22/24 11:45 s nifedipine Allergy Intermediate Unknown Uncoded 11/22/24 08:36 Review of Systems 2 Constitutional: Constitutional: Reports no additional constitutional complaints, Denies chills, Denies fever(s) and Denies night sweats Eyes: Eyes: Reports no additional eye complaints, Denies blurry vision, Denies change in vision, Denies diplopia, Denies eye discharge, Denies loss of vision and Denies eye pain ENT: Denies dizziness Cardiovascular: Cardiovascular: Reports no additional cardiovascular complaints, Denies chest pain, Reports syncope, Denies lightheadedness, Denies Loss of Consciousness and Denies dyspnea Respiratory: Respiratory: Reports no additional respiratory complaints and Denies dyspnea Gastrointestinal: Gastrointestinal: Reports no additional gastrointestinal complaints, Denies abdominal pain, Denies melena, Denies hematochezia, Denies change in bowel habits and Denies change in stool character Genitourinary: Genitourinary: Denies hematuria, Denies urinary frequency, Denies dysuria, Denies urinary incontinence, Denies urinary hesitancy and Denies urinary urgency Musculoskeletal: Musculoskeletal: Reports no additional musculoskeletal complaints, Denies numbness and Denies tingling Neurologic: Denies dizziness, Reports syncope, Denies loss of vision, Denies numbness and Denies tingling Psychiatric: Psychiatric: Reports no additional psychiatric complaints Endocrine: Endocrine: Reports no additional endocrine complaints Hematologic/Lymphatic: Hematologic/Lymphatic: Reports no additional hematologic/lymphatic complaints Allergic/Immunologic: Allergic/Immunologic: Reports no additional allergic/immunologic complaints [facility] Past Medical History Attestation statement: The following information was validated with the patient. Source: old records reviewed and nursing notes reviewed Medical History Graves disease Graves' eye disease Pituitary microadenoma Psychogenic nonepileptic seizure Hyperthyroidism Essential hypertension Breast pain, left Overweight (BMI 25.0-29.9) Heavy menses Chronic constipation GERD without esophagitis Anemia HTN (hypertension) Anxiety Surgical History History of tubal ligation H/O tooth extraction (~12/10/22) H/O: Family History Family History Paternal Aunt Breast cancer, Onset Age: 35 Maternal Aunt Breast cancer, Onset Age: 40 Other Diabetes High cholesterol Hypertension Social History Social History Housing: House Alcohol intake: never Patient Tobacco Use Status: Never used Tobacco Tobacco use type: Cigarette e-Cigarette/Vaping Use: Never Used Second Hand Smoke Exposure: No service: No Current occupational status: unemployed Cognitive needs: No Hearing needs: No Vision needs: Yes (Glasses) Physical Exam ED Vital Signs: Vital Signs - 24 hr 11/22/24 11:44 11/22/24 15:09 11/22/24 15:10 Temperature 97.9 F 99.1 F Pulse Rate 72 63 Respiratory Rate 16 16 Blood Pressure 149/98 H 136/78 Pulse Oximetry 100 98 98 Oxygen Delivery Method Room Air Room Air Room Air BMI result Body Mass Index 30.7 Const General: cooperative, no acute distress, alert and awake Nutritional Appearance: well nourished Orientation/consciousness: patient oriented x3 Limitations: no limitations HENMT Head: Yes normal to inspection and Yes atraumatic Ears: hearing grossly normal bilaterally and external ears normal General nose exam: Normal external nose present, no nasal discharge noted and no epistaxis Face and sinus: Yes normal facial exam, No abrasion and No laceration Mouth: Normal oral and palatal mucosa present, no drooling and no muffled voice Eyes General: appearance normal, both eyes and all related structures Periorbital: periorbital findings normal Eyelids: Yes eyelids normal Conjunctivae: conjunctivae normal Pupils: Equal, round and reactive pupils present EOM: EOMs intact bilaterally Neck Neck: Yes normal visual inspection, Yes full ROM and Yes no lymphadenopathy Chest Chest palpation & inspection: normal inspection of the chest Resp Effort & Inspection: normal respiratory effort and able to speak in complete sentences GI Inspection: Yes normal to inspection Neuro General: patient oriented x3, moves all extremities and CN's II-XI intact bilaterally Cranial nerves: Yes Equal, round and reactive pupils present Cognition (Neuro): normal cognition Extrem General: Yes normal to inspection, Yes full ROM and Yes capillary refill normal Psych Appearance: grossly normal Mental Status: mental status grossly normal Affect: normal affect Attitude: cooperative Thought process: Normal thought process present Thought content: Normal thought content present Insight: Good insight present (Psych) Course Course Course Narrative: This is a rapid medical exam performed by Oumar Mao NP: Additional HPI, ROS, PE not included below will be deferred to primary provider. Patient is a 29-year-old Serbian speaking female with history of Graves disease, syncopal episodes, migraines with aura, pituitary microadenoma, psychogenic nonepileptic seizures, hyperthyroidism, HTN, anxiety, anemia, GERD, chronic constipation presenting to the ED with complaint of headache, dizziness, syncope at home this morning. was downstairs but heard patient collapse, then son came down and told his father that she had passed out. states he found her face down unresponsive. Plan: EKG, labs, CT head Medications Administered Discontinued Medications Generic Name Dose Route Start Last Admin Trade Name Freq PRN Reason Stop Dose Admin Sodium Chloride 1,000 mls @ 999 mls/hr 11/22/24 13:00 11/22/24 15:56 Ns IV 11/22/24 14:00 Infused .Q1H1M HENRY Infusion Iohexol 100 ml 11/22/24 14:43 11/22/24 14:43 Iohexol 350 Mg/Ml 100 Ml Infus..Btl IV 11/22/24 14:44 65 ml ONCE ONE Administration Medical Decision Making Medical Decision Making [facility] Narrative: Patient is a 29 year old assigned female at with a history of Graves disease, psychogenic nonepileptic seizure, anxiety, HTN, GERD, and syncopal episodes presenting to the emergency department today after a syncopal episode. Patient's physical exam was unremarkable. Patient's blood work was unremarkable. Patient's urine showed evidence of a UTI. Patient's EKG was unremarkable. Patient's CT PE showed no acute process but did show evidence of 2 micronodules that would require follow up in a high risk patient however, the patient is not considered high risk. Patient's PCP reached out to our CARE team with concerns of post depression. CARE team evaluated the patient and determined she was safe to be discharged home with outpatient resources. Patient's clinical presentation is most consistent with a vasovagal syncopal episode in the setting of stress / being overwhelmed. I explained my physical exam findings as well as all test results to the patient. I answered all questions asked by the patient. I stressed the importance of the patient taking her medication as directed (either prescribed or as the over the counter packaging recommends). I stressed the importance of the patient following up with her primary care provider. I stressed the importance of the patient returning to the emergency department immediately if her symptoms were to worsen or if she were to develop any dizziness, shortness of breath, difficulty breathing, chest pain, blurry vision, loss of vision, nausea, vomiting, abdominal pain, fever, chills, back pain, or any other complaints. Patient verbalized agreement and understanding with this treatment plan and discharge. Differential Diagnosis Differential Diagnoses: The differential diagnosis associated with the presentation includes Syncope UTI Admission/Observation Consideration of admission/observation: Escalation of care including admission/observation considered Patient would have been admitted to the hospital had her work up had any findings where hospital admission was appropriate and her clinical presentation warranted hospital admission. Consult Healthcare Provider Management of the patient was discussed with: Behavioral Health Provider (spoke to the CARE team as noted in the MDM Rationale portion of this note.) Lab Data [facility] Lab Attestation statement: I reviewed the patient's lab results. My interpretation of these results are in the MDM Rationale portion of this note. 11/22/24 12:02 11/22/24 12:02 Labs: Lab Results 11/22/24 11/22/24 Range/Units 12:02 13:06 WBC 9.4 (4.8-10.8) X10*3/uL RBC 5.04 (4.20-5.50) X10*6/uL Hgb 12.4 (12.0-16.0) g/dl Hct 38.1 (37.0-47.0) % MCV 75.6 L (80.0-98.0) fL MCH 24.6 L (27.0-33.0) pg MCHC 32.5 (31.0-35.0) g/dl RDW 15.0 (11.0-16.0) % Plt Count 363 D (160-400) X10*3/uL MPV 10.2 (9.4-12.3) fL Immature Gran % (Auto) 0.3 (0.0-0.4) % Neut % (Auto) 67.9 (45-73) % Lymph % (Auto) 23.3 (20-40) % Mcclain % (Auto) 6.0 (2-11) % Eos % (Auto) 1.9 (0-4) % Baso % (Auto) 0.6 (0-2) % Lymph # (Auto) 2.2 (1.2-4.9) X10*3/uL Mcclain # (Auto) 0.6 (0.1-1.2) X10*3/uL Eos # (Auto) 0.2 (0.0-0.4) X10*3/uL Baso # (Auto) 0.1 (0.0-0.2) X10*3/uL Abs Immat Gran (auto) 0.03 (0.00-0.03) X10*3/uL Absolute Neuts (auto) 6.4 (2.0-8.3) x10*3/uL Absolute Nucleated RBC 0.000 (0.0-0.012) X10*3/uL Nucleated RBC % (auto) 0.0 (0.0-0.2) /100WBC Sodium 138 (135-145) mmol/L Potassium 4.2 (3.3-5.1) mmol/L Chloride 105 (96-108) mmol/L Carbon Dioxide 26 (22-29) mmol/L Anion Gap 11 L (12-20) BUN 12 (9-16) mg/dL Creatinine 0.71 (0.5-1.4) mg/dL Estim Creat Clear Calc 102.0 Estimated GFR > 60 Random Glucose 91 (60-115) mg/dL Lactic Acid 0.5 (0.5-2.0) mmol/L Calcium 9.6 (8.4-10.2) mg/dL Magnesium 2.0 (1.6-2.6) mg/dL Total Bilirubin 0.4 (0.0-1.0) mg/dL AST 25 (5-31) U/L ALT 27 (0-31) U/L Alkaline Phosphatase 102 (39-117) U/L Total Creatine Kinase 94 (26-140) U/L Troponin I High Sens < 2.7 (<3.5-17.0) ng/L Total Protein 9.0 H (6.5-8.0) g/dL Albumin 4.7 (3.5-5.0) g/dL TSH 1.47 (0.32-4.0) uIU/mL Beta HCG, Quant < 2 mIU/mL Influenza Type A (PCR) NEGATIVE (Negative) Influenza Type B (PCR) NEGATIVE (Negative) RSV RNA Qual (PCR) NEGATIVE (Negative) SARS-CoV-2 RNA (RT-PCR) NEGATIVE (Negative) Independent Interpretation I performed an independent interpretation of an: EKG and CT Scan Interpretation: My interpretation is in agreement with the radiologist's impression of these imaging studies. L Report Number: [id number]: Total DLP = 386.70 mGy-cm EXAMINATION: CT CERVICAL SPINE WITHOUT CONTRAST CLINICAL INFORMATION: Fall with head strike COMPARISON: None available. TECHNIQUE: 3 mm thin axial and reformatted 2 mm thin sagittal and coronal images of cervical spine were obtained without contrast. This CT examination was performed using dose optimization techniques as appropriate, variously including the following: *Automated exposure control *Adjustment of mA and/or kV according to patient size (this includes techniques or standardized protocols for targeted exams where dose is matched to indication/reason for exam; i.e. extremities or head) *Use of iterative reconstruction technique DLP: 1266 mGy/cm. FINDINGS: Straightening of cervical lordosis. The vertebral heights, alignment and disc heights are normal. The craniovertebral junction and the C1-C2 alignment is normal. There is no visible acute fracture, dislocation or subluxation seen. There is no disc bulge, herniation or spinal canal stenosis at any of the disc levels. The neural foramina patent bilaterally. The central airway and the lung apices are clear. The prevertebral and paravertebral soft tissues are normal. Thyroid lobes are symmetric and normal. CT/CT cervical spine wo IV con IMPRESSION: Unremarkable cervical spine exam Fleischner guidelines were followed. Electronically signed by: Garret Howell MD 11/22/2024 01:08 PM EDT RP Dictated By: Garret Howell MD Signed By: Electronically signed by Garret Howell MD 11/22/24 1308 Report Number: [id number]: Total DLP = 319.34 mGy-cm EXAMINATION: CT HEAD AND FACIAL BONES WITHOUT CONTRAST CLINICAL INFORMATION: Syncope, fall, nasal trauma. COMPARISON: CT head 09/01/2023, 02/10/2023. TECHNIQUE: Contiguous axial imaging was performed from the skull base to vertex and facial bones without intravenous administration of contrast. Multiplanar reformatted images were constructed from the axial data set. This CT examination was performed using dose optimization techniques as appropriate, variously including the following: *Automated exposure control *Adjustment of mA and/or kV according to patient size (this includes techniques or standardized protocols for targeted exams where dose is matched to indication/reason for exam; i.e. extremities or head) *Use of iterative reconstruction technique FINDINGS: CT HEAD: There is no evidence of intracranial hemorrhage or extra-axial fluid collection. There is no mass effect, or edema. No CT evidence of acute territorial infarct. Ventricles, sulci, and cisterns are normal in size and configuration for patient age. No hydrocephalus. No midline shift. Negative hyperdense MCA sign. Negative insular ribbon sign. White matter abnormalities. Normal pituitary. No suspicious bony abnormalities. Calvarium and skull base are intact. No extracranial soft tissue abnormality. CT MAXILLOFACIAL BONES: No mandibular or maxillofacial fracture is identified. The nasal bones, nasal septum, and nasal process are intact. Mandible and TM joints are intact. Large periapical lucency identified involving the root tip of tooth #10 (series 22, image 30). There are small right maxillary molar root tip periapical lucencies. Paranasal sinuses demonstrate minimal bilateral maxillary mucosal thickening. Sinuses, mastoids, and tympanic cavities otherwise normally aerated. Orbits are intact. Globes and orbital contents appear normal. No soft tissue abnormality. There is cerumen within the left greater than right EACs. CT/CT facial bones wo IV con IMPRESSION: 1. No acute intracranial abnormality. No calvarial fracture. 2. No acute maxillofacial or mandibular fracture. 3. Prominent periapical lucency involving the root tip of tooth #10. There are additional small right maxillary molar root tip periapical lucencies. 4. Mild maxillary sinus mucosal disease. Electronically signed by: Marco A Lucio MD 11/22/2024 01:05 PM EDT Dictated By: Marco A Lucio MD Signed By: Electronically signed by Marco A Lucio MD 11/22/24 1305 Report Number: [id number]: Total DLP = 556.96 mGy-cm EXAMINATION: CT HEAD AND FACIAL BONES WITHOUT CONTRAST CLINICAL INFORMATION: Syncope, fall, nasal trauma. COMPARISON: CT head 09/01/2023, 02/10/2023. TECHNIQUE: Contiguous axial imaging was performed from the skull base to vertex and facial bones without intravenous administration of contrast. Multiplanar reformatted images were constructed from the axial data set. This CT examination was performed using dose optimization techniques as appropriate, variously including the following: *Automated exposure control *Adjustment of mA and/or kV according to patient size (this includes techniques or standardized protocols for targeted exams where dose is matched to indication/reason for exam; i.e. extremities or head) *Use of iterative reconstruction technique FINDINGS: CT HEAD: There is no evidence of intracranial hemorrhage or extra-axial fluid collection. There is no mass effect, or edema. No CT evidence of acute territorial infarct. Ventricles, sulci, and cisterns are normal in size and configuration for patient age. No hydrocephalus. No midline shift. Negative hyperdense MCA sign. Negative insular ribbon sign. White matter abnormalities. Normal pituitary. No suspicious bony abnormalities. Calvarium and skull base are intact. No extracranial soft tissue abnormality. CT MAXILLOFACIAL BONES: No mandibular or maxillofacial fracture is identified. The nasal bones, nasal septum, and nasal process are intact. Mandible and TM joints are intact. Large periapical lucency identified involving the root tip of tooth #10 (series 22, image 30). There are small right maxillary molar root tip periapical lucencies. Paranasal sinuses demonstrate minimal bilateral maxillary mucosal thickening. Sinuses, mastoids, and tympanic cavities otherwise normally aerated. Orbits are intact. Globes and orbital contents appear normal. No soft tissue abnormality. There is cerumen within the left greater than right EACs. CT/CT head/brain wo IV con IMPRESSION: 1. No acute intracranial abnormality. No calvarial fracture. 2. No acute maxillofacial or mandibular fracture. 3. Prominent periapical lucency involving the root tip of tooth #10. There are additional small right maxillary molar root tip periapical lucencies. 4. Mild maxillary sinus mucosal disease. Electronically signed by: Marco A Lucio MD 11/22/2024 01:05 PM EDT Dictated By: Marco A Lucio MD Signed By: Electronically signed by Marco A Lucio MD 11/22/24 1305 Report Number: [id number]: Total DLP = 222.00 mGy-cm EXAMINATION: CT ANGIOGRAM CHEST CLINICAL INFORMATION: Syncope, recent surgery, concern for PE. COMPARISON: None available. TECHNIQUE: Multiple axial images were obtained through the chest after the administration of 65 mL of Omnipaque 350 intravenous contrast. Extensive vascular post-processing including two-dimensional and three- dimensional reformatted images were created and reviewed on an independent workstation. This CT examination was performed using dose optimization techniques as appropriate, variously including the following: *Automated exposure control *Adjustment of mA and/or kV according to patient size (this includes techniques or standardized protocols for targeted exams where dose is matched to indication/reason for exam; i.e. extremities or head) *Use of iterative reconstruction technique FINDINGS: VASCULAR: There is no evidence of pulmonary embolus. Normal size main pulmonary artery. Normal aorta. Top normal cardiac size. No right heart strain are reflux of contrast into the IVC. No pericardial effusion. LUNGS: 3 mm nodule posterior right upper lobe (series 8, image 49). 2 mm nodule lateral left upper lobe (series 8, image 39). No additional pulmonary nodules. Lungs clear. No consolidations or abnormal opacities. No pleural effusion or pneumothorax. Small airways normal. Central airways normal. MEDIASTINUM: Mediastinum is normal in appearance. There is no adenopathy, or esophageal abnormality. Normal thyroid. AXILLA/CHEST WALL: No lymphadenopathy. UPPER ABDOMEN: Unremarkable. OSSEOUS STRUCTURES: No suspicious lytic or blastic bone lesions. Normal appearance. CT/CT angio chest PE protocol IMPRESSION: 1. No evidence of pulmonary embolism. No evidence of acute aortic syndrome. 2. Lungs are clear without evidence of active disease. 3. There are 2 tiny micronodules present. One-year follow-up recommended only in a high-risk patient. Electronically signed by: Marco A Lucio MD 11/22/2024 03:06 PM EDT Dictated By: Marco A Lucio MD Signed By: Electronically signed by Marco A Lucio MD 11/22/24 1506 I independently interpreted this EKG and am in agreement with the below findings: Vent. Rate: 69 BPM Atrial Rate: 69 BPM P-R Int: 152 ms QRS Dur: 104 ms QT Int: 376 ms P-R-T Axes: 69 34 31 degrees QTcB Int: 402 ms Normal sinus rhythm Minimal voltage criteria for LVH, may be normal variant (R in aVL) When compared with ECG of 20-Oct-2024 03:54, No significant change was found DD/ 1155 Radiology Impression Discussion of test interpretation with radiology: I have reviewed the radiologist's reading. Critical Care Time Critical Care Time Critical Care Time: Yes Total Critical Care Time: 46 Attestation: I spent 46 minutes of Critical Care Time with this patient. This does not include time spent on separately reported billable procedures. Discharge Plan Discharge Clinical Impression: Syncope, UTI (urinary tract infection) Patient Disposition: Home, Self-Care Instructions: Urinary Tract Infection in Women (DC), Syncope (DC) Additional Instructions: Your urine showed evidence of an infection - please take your antibiotic for this. Follow up with your primary care provider. Return to the emergency department immediately if your symptoms worsen or if you develop any dizziness, shortness of breath, difficulty breathing, chest pain, blurry vision, loss of vision, nausea, vomiting, abdominal pain, fever, chills, back pain, or any other complaints. Amisha?seguimiento?con garcia m?dico de atenci?n primaria. Acuda inmediatamente al servicio de urgencias si rosey s?ntomas empeoran o si presenta falta de aliento, dificultad para respirar, dolor tor?cico, mareos, aturdimiento, dolor de espalda, dolor abdominal, fiebre, escalofr?os o cualquier otro s?ntoma. Please see the information below about our Patient Portal. If you are not yet enrolled in the [facility] Patient Portal, you will receive an enrollment email invitation following your visit to any [facility] care setting. You may also self-enroll in the Patient Portal by visiting our website: [email or web address] The following information is required to access the Patient Portal: - Your [facility] Medical Record Number - Your personal home email address (must match what is in your electronic medical record, Registration staff can assist with this) - Name - Date of Capabilities of the Patient Portal: - Message some providers - View upcoming appointments - Access your health summary, medical history, and visit history - View current conditions and allergies - View procedure and lab results - View your medications, including guidelines, side effects, and precautions - Complete pre-appointment questionnaires requested by your provider - Ready summary reports of your office visits and procedures To access the Patient Portal Mobile Mame, follow these directions: - Search [email or web address] in the Mame Store or KeyLemon Store - Download the Mame - Search for [facility] - Enter your login/password Portal del paciente Si usted no esta inscrito en el portal de pacientes de [facility] y [facility], recibira annelise invitacion de inscripcion despues de garcia visita al [facility] o al [facility] via correo electronico. Tambien puede inscribirse voluntariamente en el portal de pacientes visitando nuestra pagina web: [email or web address] La siguiente informacion sera requerida para acceder al portal: - Garcia charlie de historia medica de HM - Garcia direccion de correo electronico personal - Nombre - Fecha de nacimiento Capacidades: Las siguientes capacidades estan disponibles en el portal de pacientes: - Enviar mensajes a algunos doctores - Verificar proximas citas - Acceso a garcia historial de franko, registro medico e historial de visitas - Igor las condiciones actuales y alergias igor procedimientos y resultados del laboratorio - Igor rosey medicamentos, incluyendo las pautas - Efectos secundarios y precauciones - Completar o llenar formularios / cuestionarios de - Citas solicitadas por garcia doctor - Leer los resumenes de reportes medicos de rosey visitas y procedimientos Beronica acceder a la aplicacion movil: - [place] [employer] en la Mame Store o KeyLemon Store - Descargue la aplicacion - [facility] - Ingrese garcia nombre de usuario / Contrasena Prescriptions: New cefuroxime axetil 250 mg tablet 250 mg PO BID 7 Days Qty: 14 0RF No Action (DME) Blood Pressure Cuff Misc See Rx Instructions .ROUTE .MEDSUPPLY Qty: 1 0RF Rx Instructions: As directed sennosides [Senna Lax] 8.6 mg tablet 8.6 mg PO BEDTIME PRN (Reason: constipation) Qty: 30 1RF Proair Digihaler 90 mcg/actuation aero powdr breath act w/sensor 2 inh inhalation Q4-6H PRN (Reason: shortness of breath or wheezing) Qty: 1 0RF albuterol sulfate 1.25 mg/3 mL solution for nebulization 1.25 mg inhalation Q4-6H PRN (Reason: bronchospasm) Qty: 90 0RF magnesium oxide 400 mg (241.3 mg magnesium) tablet 400 mg PO BEDTIME 30 Days Qty: 30 6RF Rx Instructions: may hold for loose stools diphenhydramine HCl [Benadryl] 25 mg capsule 25 mg PO TID PRN (Reason: allergic reaction or migraine headache) 30 Days Qty: 30 1RF propranolol 10 mg tablet 15 mg PO BID 90 Days Qty: 270 0RF sertraline 50 mg tablet 75 mg PO DAILY 30 Days Qty: 45 2RF amlodipine 10 mg tablet 10 mg PO DAILY 90 Days Qty: 90 0RF Referrals: Jeffy Gutierrez MD [Primary Care Provider] - Print Language: Serbian
[2024-11-22 11:44] VITALS: BP 149/98; PULSE 72; RESP 16; TEMP 36.6; O2SAT 100; BMI 30.7
[2024-11-22 12:07] LABS: MANUAL DIFF FLAG NO
[2024-11-22 12:09] LABS: Basophils Absolute Auto 0.1 X10*3/uL (0.0-0.2); Basophils Percent Auto 0.6 % (0-2); Eosinophils Absolute Auto 0.2 X10*3/uL (0.0-0.4); Eosinophils Percent Auto 1.9 % (0-4); Hematocrit 38.1 % (37.0-47.0); Hemoglobin 12.4 g/dl (12.0-16.0); Imm Gran Abs Auto 0.03 X10*3/uL (0.00-0.03); Imm Gran Pct Auto 0.3 % (0.0-0.4); Lymphocytes Absolute Auto 2.2 X10*3/uL (1.2-4.9); Lymphocytes Percent Auto 23.3 % (20-40); Mean Corpuscular HGB Conc 32.5 g/dl (31.0-35.0); Mean Corpuscular Hemoglobin 24.6 pg (27.0-33.0); Mean Corpuscular Volume 75.6 fL (80.0-98.0); Mean Platelet Volume 10.2 fL (9.4-12.3); Monocytes Absolute Auto 0.6 X10*3/uL (0.1-1.2); Neutrophils Absolute Auto 6.4 x10*3/uL (2.0-8.3); Neutrophils Percent Auto 67.9 % (45-73); Platelet Count 363 X10*3/uL (160-400); Red Blood Count 5.04 X10*6/uL (4.20-5.50); White Blood Count 9.4 X10*3/uL (4.8-10.8)
[2024-11-22 12:33] LABS: Alanine Aminotransferase 27 U/L (0-31); Albumin Level 4.7 g/dL (3.5-5.0); Alkaline Phosphatase 102 U/L (39-117); Anion Gap 11 (12-20); Aspartate Amino Transferase 25 U/L (5-31); Bilirubin Total 0.4 mg/dL (0.0-1.0); Blood Urea Nitrogen 12 mg/dL (9-16); Calcium 9.6 mg/dL (8.4-10.2); Carbon Dioxide 26 mmol/L (22-29); Chloride 105 mmol/L (96-108); Estimated Glomerular Filt Rate > 60; Glucose Random 91 mg/dL (60-115); Potassium 4.2 mmol/L (3.3-5.1); Sodium 138 mmol/L (135-145)
[2024-11-22 12:36] LABS: HCG Quantitative < 2 mIU/mL; Troponin-I High Sensitivity < 2.7 ng/L (<3.5-17.0)
[2024-11-22 12:45] LABS: Influenza A PCR NEGATIVE (Negative); Influenza B PCR NEGATIVE (Negative); Resp Syncy Virus RNA Qual PCR NEGATIVE (Negative); SARS COV2 PCR INHOUSE NEGATIVE (Negative)
[2024-11-22 13:25] LABS: Lactic Acid 0.5 mmol/L (0.5-2.0)
[2024-11-22 14:12] LABS: TSH reflex Free T4 1.47 uIU/mL (0.32-4.0)
--- OUTSIDE RECORDS SUMMARY | 2024-11-22 14:17 | XMS_ITS | Referral Summary ---
Author Organization [facility] Address [address] [place] [address] Care Team Providers Care Black Ash Worker Name Role Phone Patient, Has No Pcp Or Ref Primary Care Provider Unavailable Encounters Date Type Department Care Team Description 11/17/2024 5:48 PM EDT - 11/18/2024 12:23 AM EDT Emergency [facility] Emergency Department [address] [place] [address] Rosette Franklin MD Seizure-like activity (HCC) (Primary [...] Not on file Procedures * Due to [place] state law, this organization might not be [...] AUTO DIFFERENTIAL STAT 11/17/2024 6:23 PM EDT ECG 12-LEAD STAT 11/17/2024 6:14 PM EDT from Last 3 Months Results * Due to [place] [employer] law, this organization might not be sharing [...] obtain the completed interpretation. ? Workstation ID: [id number] Narrative 11/17/2024 11:12 PM EDT INDICATION: 29 years Female who presents with/for Fatigue and malaise TECHNIQUE: Single view of the chest COMPARISON: None FINDINGS: Lines/Tubes/Support: Telemetry leads. Mediastinum: Cardiomediastinal silhouette is without acute findings. Trachea appears midline. Lungs/Pleura: Symmetrically inflated without focal consolidation, significant pleural effusion, or sizable pneumothorax. Musculoskeletal: No displaced fractures. Abdomen: No acute findings. Resulting Agency Comment [id number] Procedure Note Marco A Gonzalez MD - [...] possible to obtain thecompleted interpretation. Workstation ID: [id number] Rosette Franklin MD IMG XR PROCEDURES Final Result * Repeat Troponin #1 (11/17/2024 10:10 PM EDT) Only the most recent of2 resultswithin the time period is included. Troponin T High Sensitivity <6 <=13 ng/L 11/17/2024 10:37 PM EDT [facility] Comment: Tm-Khhwotyv-K level of 52 ng/L or higher at [...] be evaluated in line with the 4th [place] Definition of AMI. Troponin baseline and serial [...] LAB BLOOD ORDERABLES Final Resu lt [facility] [address] [place] [address], * (ABNORMAL) Microscopic Urinalysis Only (11/17/2024 8:50 PM EDT) WBC, Urine 15-20(A) 0-2, None Seen /HPF [facility] MANUAL 11/17/2024 9:55 PM EDT [facility] RBC, Urine Too Numerous To Count(A) 0-2, None Seen /HPF [facility] MANUAL 11/17/2024 9:55 PM EDT [facility] Bacteria, Urine 1+(A) None Seen /HPF [facility] MANUAL 11/17/2024 9:55 PM EDT [facility] Squamous Epithelial Cells, Urine Moderate /HPF [facility] MANUAL 11/17/2024 9:55 PM EDT [facility] Trichomonas, Urine Present(A) None Seen /HPF [facility] MANUAL 11/17/2024 9:55 PM EDT [facility] Urine Urine specimen collection, clean catch / Unknown Non-Blood Collection / Unknown 11/17/2024 8:50 PM EDT 11/17/2024 8:55 PM EDT us Rosette Franklin MD LAB URINE ORDERABLES Final Resu lt [facility] [address] [place] [address], [place] * (ABNORMAL) Urinalysis W/Reflex to Microscopic & Culture (11/17/2024 8:50 PM EDT) Color, Urine Yellow Yellow 11/17/2024 9:36 PM EDT [facility] Clarity, Urine Clear Clear 11/17/2024 9:36 PM EDT [facility] Specific [place], Urine 1.015 1.005 - 1.030 11/17/2024 9:36 PM EDT [facility] pH, Urine 7.0 5.0 - 8.0 11/17/2024 9:36 PM EDT [facility] Protein, Urine 30(A) Negative mg/dL 11/17/2024 9:36 PM EDT [facility] Glucose, Urine Negative Negative mg/dL 11/17/2024 9:36 PM EDT [facility] Ketones, Urine Negative Negative mg/dL 11/17/2024 9:36 PM EDT [facility] Bilirubin, Urine Negative Negative 11/17/2024 9:36 PM EDT [facility] Blood, Urine Large(A) Negative 11/17/2024 9:36 PM EDT [facility] Nitrite, Urine Negative Negative 11/17/2024 9:36 PM EDT [facility] Urobilinogen , Urine 0.2 0.2, 1.0 E.U./dL 11/17/2024 9:36 PM EDT [facility] Leukocyte Esterase, Urine Moderate(A) Negative 11/17/2024 9:36 PM EDT [facility] Urine Urine specimen collection, clean catch / Unknown Non-Blood Collection / Unknown 11/17/2024 8:50 PM EDT 11/17/2024 8:55 PM EDT [facility] - 11/17/2024 9:36 PM EDT Some urinalysis results will not meet the criteria for reflex urine culture although certain urine values may be abnormal. ??Additional testing can be ordered by the provider if clinically warranted. us Rosette Franklin MD LAB URINE ORDERABLES Final Resu lt [facility] [address] [place] [address], * (ABNORMAL) Urine Culture, Routine (11/17/2024 8:50 PM EDT) Urine Culture Workup Less than 10,000 CFU/mL Streptococcus agalactiae(A) BIOMERIEU X VITEK2 COMPACT 11/22/2024 8:44 AM EDT [facility] Urine Culture Workup 10,000-25,000 CFU/mL BIOMERIEU X VITEK2 COMPACT 11/22/2024 8:44 AM EDT [facility] Comment:Mixed Gram positive organisms with no predominant organism present. Consistent with urogenital contamination after 24 hours. Urine Urine specimen collection, clean catch / Unknown Non-Blood Collection / Unknown 11/17/2024 8:50 PM EDT 11/17/2024 8:57 PM EDT Narrative Organism Antibiotic Method Susceptibility Streptococcus agalactiae Clindamycin [place] MANUAL 17: Intermediate Streptococcus agalactiae Erythromycin [place] MANUAL 20: Susceptible Streptococcus agalactiae Levofloxacin BIOMERIEUX VITEK2 COMPACT 1 ug/ml: Susceptible Streptococcus agalactiae Linezolid BIOMERIEUX VITEK2 COMPACT 1 ug/ml: Susceptible Streptococcus agalactiae Moxifloxacin BIOMERIEUX VITEK2 COMPACT <=0.25 ug/ml: Susceptible Streptococcus agalactiae Penicillin BIOMERIEUX VITEK2 COMPACT <=0.12 ug/ml: Susceptible Streptococcus agalactiae Quinupristin + Dalfopristin BIOMERIEUX VITEK2 COMPACT <=0.25 ug/ml: Susceptible Streptococcus agalactiae Tetracycline BIOMERIEUX VITEK2 COMPACT >=16 ug/ml: Resistant Streptococcus agalactiae Tigecycline BIOMERIEUX VITEK2 COMPACT <=0.12 ug/ml: Susceptible Streptococcus agalactiae Vancomycin BIOMERIEUX VITEK2 COMPACT <=0.5 ug/ml: Susceptible us Rosette Franklin MD LAB MICROBIOLOGY - [facility] Final Result [address] [address], [place] * CT Head WO Contrast (11/17/2024 [...] obtain the completed interpretation. ? Workstation ID: [id number] Up-to-date CT equipment and radiation dose reduction [...] osseous lesions or fractures. Resulting Agency Comment [id number] Procedure Note Charleen Zhang MD - 11/17/2024 [...] possible to obtain thecompleted interpretation. Workstation ID: [id number] Up-to-date CT equipment and radiation dose reduction techniques wereemployed. CTDIvol: 45.8 mGy. DLP: 834 mGy-cm. Rosette Franklin MD IM CT PROCEDURES Final Result * (ABNORMAL) CBC Auto Differential (11/17/2024 6:23 PM EDT) WBC 8.8 3.8 - 10.8 10*3/uL 11/17/2024 6:37 PM EDT [facility] RBC 4.68 3.80 - 5.10 10*6/uL [...] % 0.8 % 11/17/2024 6:37 PM EDT [facility] Neutrophil # 5.75 1.50 - 7.80 10*3/uL 11/17/2024 6:37 PM EDT [facility] Immature Grans # 0.03 <=0.03 10*3/uL 11/17/2024 6:37 PM EDT [facility] Lymphocyte # 2.20 0.85 - 3.90 10*3/uL 11/17/2024 6:37 PM EDT [facility] Monocyte # 0.50 0.20 - 0.95 10*3/uL 11/17/2024 6:37 PM EDT [facility] Eosinophil # 0.20 0.02 - 0.50 10*3/uL 11/17/2024 6:37 PM EDT [facility] Basophil # 0.10 0.00 - 0.20 10*3/uL 11/17/2024 6:37 PM EDT [facility] nRBC % 0.0 /100 WBCs 11/17/2024 6:37 PM EDT [facility] nRBC # <0.01 <0.01 10*3/uL 11/17/2024 6:37 PM EDT [facility] Blood Structure of peripheral vein / Unknown Venipuncture / Unknown 11/17/2024 6:23 PM EDT 11/17/2024 6:34 PM EDT us Rosette Franklin MD LAB BLOOD ORDERABLES Final Resu lt [facility] [address] [place] [address], [place] * hCG, Qualitative, Serum (11/17/2024 6:23 PM EDT) Pathologist [facility] HCG Qualitative, Serum Negative Negative [facility] MANUAL 11/17/2024 6:59 PM EDT [facility] Comment: hCG may be negative in early . ??Suggest repeat testing in 2-4 days if clinically indicated. ??The results of this test should be interpreted with the patient's clinical presentation. Blood Structure of peripheral vein / Unknown Venipuncture / Unknown 11/17/2024 6:23 PM EDT 11/17/2024 6:34 PM EDT Rosette Franklin MD LAB BLOOD ORDERABLES Final Resu lt Performing Organization Address City/[facility]/ZIP Co de Phone Number [facility] [address] [place] [id number], [place] * Magnesium (11/17/2024 6:23 PM EDT) Pathologist [facility] MG 2.0 1.6 - 2.4 mg/dL 11/17/2024 7:07 PM EDT [facility] Blood Structure of peripheral vein / Unknown Venipuncture / Unknown 11/17/2024 6:23 PM EDT 11/17/2024 6:34 PM EDT Rosette Franklin MD LAB BLOOD ORDERABLES Final Resu lt [facility] [address] [place] [id number], [place] * BMP - Basic Metabolic Panel (11/17/2024 6:23 PM EDT) Pathologist [facility] NA 137 135 - 145 mmol/L 11/17/2024 7:07 PM EDT [facility] K 3.9 3.5 - 5.3 mmol/L 11/17/2024 7:07 PM EDT [facility] Cl 101 98 - 107 mmol/L 11/17/2024 7:07 PM EDT [facility] CO2 23 22 - 32 mmol/L 11/17/2024 7:07 PM EDT [facility] BUN 17 7 - 23 mg/dL 11/17/2024 7:07 PM EDT [facility] Creatinine 0.76 0.50 - 1.20 mg/dL 11/17/2024 7:07 PM EDT [facility] Glucose 91 65 - 99 mg/dL 11/17/2024 7:07 PM EDT [facility] Calcium 9.1 8.6 - 10.5 mg/dL 11/17/2024 7:07 PM EDT [facility] Anion Gap 13 5 - 15 11/17/2024 7:07 PM EDT [facility] eGFR >90 >=60 mL/min/1. 73m2 11/17/2024 7:07 PM EDT [facility] Comment:The estimated glomer ular filtration rate [...] ORDERABLES Final Resu lt Performing Organization Address City/[facility]/ZIP Co de Phone Number [facility] [address] [facility] [place] [address], * ECG 12 lead (11/17/2024 6:14 PM EDT) Ventricular Rate EKG 68 BPM MUSE EKG Atrial Rate 68 BPM MUSE EKG CA Interval 138 ms MUSE EKG QRS Interval 112 ms MUSE EKG QT Interval 400 ms MUSE EKG QTC Interval 425 ms MUSE EKG P Platinum 36 degrees MUSE EKG R Platinum 45 degrees MUSE EKG T Wave Platinum 28 degrees MUSE EKG 11/17/2024 6:14 PM EDT 11/22/2024 11:04 AM EDT Impressions MUSE EKG - 11/22/2024 11:04 AM EDT Normal sinus rhythm Moderate voltage criteria for LVH, may be normal variant Borderline ECG No previous ECGs available Confirmed by Jerome Augustine ([id number]) on 11/22/2024 11:04:44 AM Rosette Franklin MD ECG ORDERABLES Final Result Performing Organization Address City/[facility] Co de Phone Number MUSE EKG from Last 3 Months Insurance [facility] [employer] Care Teams Black Ash Worker Relationship Specialty Start Date End Date Patient, Has No Pcp Or Ref DO NOT EDIT THIS RECORD VIA PROVIDER ON THE FLY PCP - General Drum Builder 11/17/24
--- OUTSIDE RECORDS SUMMARY | 2024-11-22 14:17 | XMS_ITS | Encounter Summary ---
Author Organization [facility] Address [address] [place] [address] Care Team Providers Care Environmental Safety Specialist Name Role Phone Patient, Has No Pcp Or Ref Primary Care Provider Unavailable Reason for Visit * Reason Comments Seizure Encounter Details Date Type Department Care Team (Late st Contact Info) Description 11/17/2024 5:48 PM EDT - 11/18/2024 12:23 AM EDT Emergency [facility] Emergency Department [address] [place] [address] Rosette Franklin MD [address] [place] [place] [id number] Seizure-like activity (HCC) (Primary Dx) Discharge Disposition: [...] que kern neurolog??a le autorice a hacerlo. Rigby Tylenol e ibuprofeno para el dolor.Regrese al departamento de emergencias si tiene alguna inquietud. documented in this encounter Medications at Time of Discharge amLODIPine (NORVASC) 10 mg tablet Take 10 mg by mouth once a day. documented as of this encounter ED Notes * Rosette Franklin MD - 11/17/2024 5:47 PM EDT History HPI: No chief complaint on file. HPI 29-year-old Kinyarwanda-speaking female with history of hyperthyroidism presenting to the emergency department with seizure. Reportedly had seizure-like activity at home. EMS witnessed an approximately 1.5-minute seizure and gave 2 mg of IM Versed. Patient reports history of seizures which she has had several times was never seen a neurologist and is not on any antiepileptics. Does note she has a neurology appointment at [facility] next week. Notes that she lives closer to [facility] but was here visiting family) takes amlodipine [...] normal. Medical Decision Making and ED Course [facility] ED Course as of 11/17/24 2247 Sun Nov 17, 2024 215 Blood, Urine(!): Large On menstrual cycle [] 2224 Troponin T High Sensitivity: <6 [AH] ED Course User Index [AH] Rosette Franklin MD 29-year-old Kinyarwanda-speaking female with history of hyperthyroidism presenting to the emergency department with seizure. Due to patient being from out of the area I did not have any records on her. She does not have any tachycardia or significant hypertension that would be concerning for thyroid storm. I spoke at length with patient's spouse. It sounds as if she has been evaluated at [facility] multiple times for these episodes. He informing [...] No prior. Dain Nelson : 1995 CSN: [id number] Rosette Franklin MD 11/17/24 2258 documented in this encounter Miscellaneous Notes * Emergency Department Information Exchange - SHERIN - Sherin Interface - 11/17/2024 6:31 PM EDT [facility] NOTIFICATION 11/17/2024 17:48 DAIN NELSON : 1995 [facility]'s patient encounter information: MRN:?[id number] Account Number:?[id number] Billing Account Number:[id number] Criteria Met High-UtilizersStandard: 6 ED visits within 6 months Traveling Patients Standard: 3 Different EDs within 90 days Security and Safety No Security Events were found. ED Care Guidelines There are currently no ED Care Guidelines for this patient. Please check your facility's medical records system. Prescription Drug Data No Prescription Drug Data was found. E.D. Visit Count (12 mo.) Facility Visits [facility] 11 [facility] 3 [facility] 1 Total 15 Note: Visits indicate total known visits. Recent Emergency Department Visit Summary Showing 10 most recent visits out of 15 in the past 12 months Date Facility City State Type Diagnoses or Chief Complaint Nov 17, 2024 [facility] 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 Trichomoniasis, unspecified 1. Pelvic and perineal pain 2. Influenza due to other identified influenza virus with other respiratory manifestations 3. Unspecified convulsions 4. Acculturation difficulty 5. Other terminal system operator (current) drug therapy 99. Influenza due to unidentified influenza virus with other respiratory manifestations Oct 12, 2024 [facility] Emergency 99. Unspecified convulsions Oct 09, 2024 [facility] Emergency Chief Complaint: SZ Oct 07, 2024 [facility] Emergency 2. Other chest pain 3. Essential (primary) hypertension 4. 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 Migraine, unspecified, not intractable, without status migrainosus 6. Other terminal system operator (current) drug therapy 7. Encounter for screening for COVID-19 99. Syncope and collapse 99. Chest pain, unspecified Oct 02, 2024 [facility] Emergency 2. Dizziness and giddiness 4. Unspecified pre-eclampsia, complicating the puerperium 5. Acculturation difficulty 6. Encounter for screening for COVID-19 7. Shortness of breath 8. Other terminal system operator (current) drug therapy 99. Chest pain, unspecified 99. Nausea Sep 17, 2024 [facility] Emergency 1. Infection of bladder following delivery 3. Endocrine, nutritional and metabolic diseases complicating the puerperium 5. Other complications of the puerperium, not elsewhere classified 7. Headache, unspecified 8. Bradycardia, unspecified 9. Encounter for screening for COVID-19 10. Acculturation difficulty 99. Dehydration 99. Syncope and collapse 99. Dizziness and giddiness [facility] [place] [facility] 1. Other chest pain 2. Nausea with vomiting, unspecified 3. Diarrhea, unspecified 5. Abnormal uterine and vaginal bleeding, unspecified 6. Other terminal system operator (current) drug therapy 7. Encounter for screening for COVID-19 99. Vomiting, unspecified 99. Syncope and collapse Jun 05, 2024 [facility] [place] [facility] 99. Other specified health status 99. Headache, unspecified 99. Unspecified pre-existing hypertension complicating , unspecified trimester Recent Inpatient Visit Summary Date Facility [facility] Type Diagnoses or Chief Complaint [facility] 20[facility] [place] [facility] [place] [facility] 99. Severe pre-eclampsia, third trimester 99. [...] complicating , unspecified trimester [facility], 20[facility] [place] [facility]. Encounter for other general counseling [...] scar from previous surgery [facility] [place] [facility] 99. Urinary tract infection, site not [...] trimester 99. Headache, unspecified May 30, 2024 [facility] Elinor Watkins [place] Obstetrics 99. Other specified [...] Current RODGER LOMBARDO MD Internal Medicine Current ECO This patient has registered at the [facility] Emergency Department For more information visit: [email or web address] PLEASE NOTE: 1. Any care recommendations and other clinical information are provided as guidelines or for historical purposes only, and providers should exercise their own clinical judgment when providing care. 2. You may only use this information for purposes of treatment, payment or health care operations activities, and subject to the limitations of applicable ECO Policies. 3. You should consult directly with the organization that provided a care guideline or other clinical history with any questions about additional information or accuracy or completeness of information provided. ? 2024 ECO - WP Fail-Safe documented in this encounter Plan of Treatment Not on file documented as of this encounter Procedures * Due to [place] state law, this organization might not be [...] METABOLIC PANEL STAT 11/17/2024 6:23 PM EDT ECG 12-LEAD STAT 11/17/2024 6:14 PM EDT documented in this encounter Results * Due to [place] state law, this organization might not be [...] obtain the completed interpretation. ? Workstation ID: [id number] Narrative 11/17/2024 11:12 PM EDT INDICATION: 29 years Female who presents with/for Fatigue and malaise TECHNIQUE: Single view of the chest COMPARISON: None FINDINGS: Lines/Tubes/Support: Telemetry leads. Mediastinum: Cardiomediastinal silhouette is without acute findings. Trachea appears midline. Lungs/Pleura: Symmetrically inflated without focal consolidation, significant pleural effusion, or sizable pneumothorax. Musculoskeletal: No displaced fractures. Abdomen: No acute findings. Resulting Agency Comment [id number] Procedure Note Marco A Gonzalez MD - [...] possible to obtain thecompleted interpretation. Workstation ID: [id number] us Rosette Franklin MD IMG XR PROCEDURES Final Result * Repeat Troponin #1 (11/17/2024 10:10 PM EDT) Troponin T High Sensitivity <6 <=13 ng/L 11/17/2024 10:37 PM EDT [facility] Comment: Ii-Fcmfjezm-X level of 52 ng/L or higher at [...] be evaluated in line with the 4th [place] Definition of AMI. Troponin baseline and serial [...] 10:10 PM EDT 11/17/2024 10:13 PM EDT Rosette Franklin MD LAB BLOOD ORDERABLES Final Resu lt [facility] [address] [place] [address], * Troponin T, High Sensitivity (11/17/2024 9:18 PM EDT) Pathologist [facility] Troponin T High Sensitivity <6 <=13 ng/L 11/17/2024 10:01 PM EDT [facility] Comment: Dm-Mknheqib-V level of 52 ng/L or higher at [...] be evaluated in line with the 4th [place] Definition of AMI. Troponin baseline and serial [...] MD LAB BLOOD ORDERABLES Final Resu lt [facility] [address] [place] [address], [place] * (ABNORMAL) Microscopic Urinalysis Only (11/17/2024 8:50 PM EDT) WBC, Urine 15-20(A) 0-2, None Seen /HPF [facility] 11/17/2024 9:55 PM EDT [facility] RBC, Urine Too Numerous To Count(A) 0-2, None Seen /HPF [facility] 11/17/2024 9:55 PM EDT [facility] Bacteria, Urine 1+(A) None Seen /HPF [facility] 11/17/2024 9:55 PM EDT [facility] Squamous Epithelial Cells, Urine Moderate /HPF [facility] MANUAL 11/17/2024 9:55 PM EDT [facility] Trichomonas, Urine Present(A) None Seen /HPF [facility] MANUAL 11/17/2024 9:55 PM EDT [facility] Urine Urine specimen collection, clean catch / Unknown Non-Blood Collection / Unknown 11/17/2024 8:50 PM EDT 11/17/2024 8:55 PM EDT us Rosette Franklin MD LAB URINE ORDERABLES Final Resu lt [facility] [address] [place] [address], [place] * (ABNORMAL) Urine Culture, Routine (11/17/2024 8:50 PM EDT) Urine Culture Workup Less than 10,000 CFU/mL Streptococcus agalactiae(A) BIOMERIEU X VITEK2 COMPACT 11/22/2024 8:44 AM EDT [facility] Urine Culture Workup 10,000-25,000 CFU/mL BIOMERIEU X VITEK2 COMPACT 11/22/2024 8:44 AM EDT [facility] Comment:Mixed Gram positive organisms with [...] us Rosette Franklin MD LAB MICROBIOLOGY - [facility] Final Result [facility] [address] [place] [address], [place] * (ABNORMAL) Urinalysis W/Reflex to Microscopic & Culture (11/17/2024 8:50 PM EDT) Color, Urine Yellow Yellow 11/17/2024 9:36 PM EDT [facility] Clarity, Urine Clear Clear 11/17/2024 9:36 PM EDT [facility] Specific [place], Urine 1.015 1.005 - 1.030 11/17/2024 9:36 PM EDT [facility] pH, Urine 7.0 5.0 - 8.0 11/17/2024 9:36 PM EDT [facility] Protein, Urine 30(A) Negative mg/dL 11/17/2024 9:36 PM EDT [facility] Glucose, Urine Negative Negative mg/dL 11/17/2024 9:36 PM EDT [facility] Ketones, Urine Negative Negative mg/dL 11/17/2024 9:36 PM EDT [facility] Bilirubin, Urine Negative Negative 11/17/2024 9:36 PM EDT [facility] Blood, Urine Large(A) Negative 11/17/2024 9:36 PM EDT [facility] Nitrite, Urine Negative Negative 11/17/2024 9:36 PM EDT [facility] Urobilinogen , Urine 0.2 0.2, 1.0 E.U./dL 11/17/2024 9:36 PM EDT [facility] Leukocyte Esterase, Urine Moderate(A) Negative 11/17/2024 9:36 PM EDT [facility] Urine Urine specimen collection, clean catch / Unknown Non-Blood Collection / Unknown 11/17/2024 8:50 PM EDT 11/17/2024 8:[address] [facility] - 11/17/2024 9:36 PM EDT Some urinalysis results will not meet the criteria for reflex urine culture although certain urine values may be abnormal. ??Additional testing can be ordered by the provider if clinically warranted. us Rosette Franklin MD LAB URINE ORDERABLES Final Resu lt [facility] [address] [place] [address], [place] * CT Head WO Contrast (11/17/2024 [...] obtain the completed interpretation. ? Workstation ID: [id number] Up-to-date CT equipment and radiation dose reduction [...] osseous lesions or fractures. Resulting Agency Comment [id number] Procedure Note Charleen Zhang MD - 11/17/2024 [...] possible to obtain thecompleted interpretation. Workstation ID: [id number] Up-to-date CT equipment and radiation dose reduction techniques wereemployed. CTDIvol: 45.8 mGy. DLP: 834 mGy-cm. us Rosette Franklin MD IMG CT PROCEDURES Final Result * hCG, Qualitative, Serum (11/17/2024 6:23 PM EDT) HCG Qualitative, Serum Negative Negative [facility] 11/17/2024 6:59 PM EDT [facility] Comment: hCG may be negative in early . ??Suggest repeat testing in 2-4 days if clinically indicated. ??The results of this test should be interpreted with the patient's clinical presentation. Blood Structure of peripheral vein / Unknown Venipuncture / Unknown 11/17/2024 6:23 PM EDT 11/17/2024 6:34 PM EDT us Rosette Franklin MD LAB BLOOD ORDERABLES Final Resu lt [facility] [address] [place] [address], * Magnesium (11/17/2024 6:23 PM EDT) MG 2.0 1.6 - 2.4 mg/dL 11/17/2024 7:07 PM EDT [facility] Blood Structure of peripheral vein / Unknown Venipuncture / Unknown 11/17/2024 6:23 PM EDT 11/17/2024 6:34 PM EDT us Rosette Franklin MD LAB BLOOD ORDERABLES Final Resu lt [facility] [address] [place] [address], [place] * BMP - Basic Metabolic Panel (11/17/2024 6:23 PM EDT) NA 137 135 - 145 mmol/L 11/17/2024 7:07 PM EDT [facility] K 3.9 3.5 - 5.3 mmol/L 11/17/2024 7:07 PM EDT [facility] Cl 101 98 - 107 mmol/L 11/17/2024 7:07 PM EDT [facility] CO2 23 22 - 32 mmol/L 11/17/2024 7:07 PM EDT [facility] BUN 17 7 - 23 mg/dL 11/17/2024 7:07 PM EDT [facility] Creatinine 0.76 0.50 - 1.20 mg/dL 11/17/2024 7:07 PM EDT [facility] Glucose 91 65 - 99 mg/dL 11/17/2024 7:07 PM EDT [facility] Calcium 9.1 8.6 - 10.5 mg/dL 11/17/2024 7:07 PM EDT [facility] Anion Gap 13 5 - 15 11/17/2024 7:07 PM EDT [facility] eGFR >90 >=60 mL/min/1. 73m2 11/17/2024 7:07 PM EDT [facility] Comment:The estimated glomer ular filtration [...] MD LAB BLOOD ORDERABLES Final Resu lt [facility] [address] [place] [address], * (ABNORMAL) CBC Auto Differential (11/17/2024 6:23 PM EDT) WBC 8.8 3.8 - 10.8 10*3/uL 11/17/2024 6:37 PM EDT [facility] RBC 4.68 3.80 - 5.10 10*6/uL 11/17/2024 6:37 PM EDT [facility] Hemoglobin 11.7 11.7 - 15.5 g/dL 11/17/2024 6:37 PM EDT [facility] Hematocrit 36.3 35.0 - 45.0 % 11/17/2024 6:37 PM EDT [facility] MCV 77.6(L) 80.0 - 100.0 fL 11/17/2024 6:37 PM EDT [facility] MCH 25.0(L) 27.0 - 33.0 pg 11/17/2024 6:37 PM EDT [facility] MCHC 32.2 32.0 - 36.0 g/dL [...] - 0.95 10*3/uL 11/17/2024 6:37 PM EDT [facility] Eosinophil # 0.20 0.02 - 0.50 10*3/uL 11/17/2024 6:37 PM EDT [facility] Basophil # 0.10 0.00 - 0.20 10*3/uL 11/17/2024 6:37 PM EDT [facility] nRBC % 0.0 /100 WBCs 11/17/2024 6:37 PM EDT [facility] nRBC # <0.01 <0.01 10*3/uL 11/17/2024 6:37 PM EDT [facility] Blood Structure of peripheral vein / Unknown Venipuncture / Unknown 11/17/2024 6:23 PM EDT 11/17/2024 6:34 PM EDT us Rosette Franklin MD LAB BLOOD ORDERABLES Final Resu lt [facility] [address] [place] [address], * ECG 12 lead (11/17/2024 6:14 PM EDT) Ventricular Rate EKG 68 BPM MUSE EKG Atrial Rate 68 BPM MUSE EKG FL Interval 138 ms MUSE EKG QRS Interval 112 ms MUSE EKG QT Interval 400 ms MUSE EKG QTC Interval 425 ms MUSE EKG P Conde 36 degrees MUSE EKG R Conde 45 degrees MUSE EKG T Wave Conde 28 degrees MUSE EKG 11/17/2024 6:14 PM EDT 11/22/2024 11:04 AM EDT Impressions MUSE EKG - 11/22/2024 11:04 AM EDT Normal sinus rhythm Moderate voltage criteria for LVH, may be normal variant Borderline ECG No previous ECGs available Confirmed by Jerome Augustine ([id number]) on 11/22/2024 11:04:44 AM us Rosette Franklin MD ECG ORDERABLES Final Result MUSE EKG documented in this encounter Visit Diagnoses Diagnosis [...] EST and EDT. Scheduled Medication Order 11/16/2024 11/17/2024 11/18/2024 ketorolac (TORADOL) injection 15 mg (COMPLETED) 15 [...] RN) documented in this encounter Care Teams Environmental Safety Specialist Relationship Specialty Start Date End Date Patient, Has No Pcp Or Ref DO NOT EDIT THIS RECORD VIA PROVIDER ON THE FLY PCP - General Trimming Machine Operator 11/17/24 documented as of this encounter
--- OUTSIDE RECORDS SUMMARY | 2024-11-22 14:17 | XMS_ITS | Clinical Summary ---
Author Organization [facility] ity Address [address] [place] [address] Care Team Providers Care Health And Nutrition Specialist Name Role Phone Jeffy Gutierrez MD Primary [...] Documents on File Type Date Recorded Patient Medication Tech Expl anation Health Care Decision (hx) 08/30/2023 HE ALTH CARE PROXY Health Care Decision (hx) 08/30/2023 HE ALTH CARE PROXY Health Care Decision (hx) 08/30/2023 HE ALTH CARE PROXY Care Teams Health And Nutrition Specialist Relationship Specialty Start Date End Date Jeffy Gutierrez MD [address] [place] [address] Dr [address] JO-ANN Black PCP - General 10/25/23
--- OUTSIDE RECORDS SUMMARY | 2024-11-22 14:17 | XMS_ITS | Clinical Summary ---
Author Organization [facility] Address [address] [place] [address] Care Team Providers Care Validation Specialist Name Role Phone Patient, Has No [...] EDT - 11/18/2024 12:23 AM EDT Emergency [facility] Emergency Department [address] [place] [address] Rosette Franklin MD Seizure-like activity (HCC) (Primary [...] Completed 06/06/2024, 06/04/2019 Procedures * Due to [place] state law, [...] Last 3 Months Results * Due to [place] state law, [...] obtain the completed interpretation. ? Workstation ID: [id number] Narrative 11/17/2024 11:12 PM EDT INDICATION: 29 years Female who presents with/for Fatigue and malaise TECHNIQUE: Single view of the chest COMPARISON: None FINDINGS: Lines/Tubes/Support: Telemetry leads. Mediastinum: Cardiomediastinal silhouette is without acute findings. Trachea appears midline. Lungs/Pleura: Symmetrically inflated without focal consolidation, significant pleural effusion, or sizable pneumothorax. Musculoskeletal: No displaced fractures. Abdomen: No acute findings. Resulting Agency Comment [id number] Procedure Note Marco A Gonzalez MD - [...] possible to obtain thecompleted interpretation. Workstation ID: [id number] us Rosette Franklin MD IMG XR PROCEDURES Final Result * Repeat Troponin #1 (11/17/2024 10:10 PM EDT) Only the most recent of2 resultswithin the time period is included. Pathologist [facility] Troponin T High Sensitivity <6 <=13 ng/L 11/17/2024 10:37 PM EDT [facility] Comment: Lm-[id number]-[id number] level of 52 ng/L or higher at [...] be evaluated in line with the 4th [place] Definition of AMI. Troponin baseline and serial [...] MD LAB BLOOD ORDERABLES Final Resu lt [facility] [employer] [facility] [address] [place] [id number], [place] * (ABNORMAL) Microscopic Urinalysis Only (11/17/2024 8:50 PM EDT) WBC, Urine 15-20(A) 0-2, None Seen /HPF [facility] MANUAL 11/17/2024 9:55 PM EDT [facility] RBC, Urine Too Numerous To Count(A) 0-2, None Seen /HPF [facility] MANUAL 11/17/2024 9:55 PM EDT [facility] Bacteria, Urine 1+(A) None Seen /HPF [facility] MANUAL 11/17/2024 9:55 PM EDT [facility] Squamous Epithelial Cells, Urine Moderate /HPF [facility] MANUAL 11/17/2024 9:55 PM EDT [facility] Trichomonas, Urine Present(A) None Seen /HPF [facility] MANUAL 11/17/2024 9:55 PM EDT [facility] Urine Urine specimen collection, clean catch / Unknown Non-Blood Collection / Unknown 11/17/2024 8:50 PM EDT 11/17/2024 8:55 PM EDT us Rosette Franklin MD LAB URINE ORDERABLES Final Resu lt [facility] [employer] [facility] [address] [place] [address], [place] * (ABNORMAL) Urinalysis W/Reflex to Microscopic & Culture (11/17/2024 8:50 PM EDT) Color, Urine Yellow Yellow 11/17/2024 9:36 PM EDT [facility] Clarity, Urine Clear Clear 11/17/2024 9:36 PM EDT [facility] Specific Happy, Urine 1.015 1.005 - 1.030 11/17/2024 9:36 PM EDT [facility] pH, Urine 7.0 5.0 - 8.0 11/17/2024 9:36 PM EDT [facility] Protein, Urine 30(A) Negative mg/dL 11/17/2024 9:36 PM EDT [facility] Glucose, Urine Negative Negative mg/dL 11/17/2024 9:36 PM EDT [facility] Ketones, Urine Negative Negative mg/dL 11/17/2024 9:36 PM EDT [facility] Bilirubin, Urine Negative Negative 11/17/2024 9:36 PM EDT [facility] Blood, Urine Large(A) Negative 11/17/2024 9:36 PM EDT [facility] Nitrite, Urine Negative Negative 11/17/2024 9:36 PM EDT [facility] Urobilinogen , Urine 0.2 0.2, 1.0 E.U./dL 11/17/2024 9:36 PM EDT [facility] Leukocyte Esterase, Urine Moderate(A) Negative 11/17/2024 9:36 PM EDT [facility] Urine Urine specimen collection, clean catch / Unknown Non-Blood Collection / Unknown 11/17/2024 8:50 PM EDT 11/17/2024 8:55 PM EDT [facility] - 11/17/2024 9:36 PM EDT Some urinalysis results will not meet the criteria for reflex urine culture although certain urine values may be abnormal. ??Additional testing can be ordered by the provider if clinically warranted. us Rosette Franklin MD LAB URINE ORDERABLES Final Resu lt [facility] [address] [place] [address], [place] * (ABNORMAL) Urine Culture, Routine (11/17/2024 8:50 PM EDT) Urine Culture Workup Less than 10,000 CFU/mL Streptococcus agalactiae(A) BIOMERIEU X VITEK2 COMPACT 11/22/2024 8:44 AM EDT [facility] Urine Culture Workup 10,000-25,000 CFU/mL BIOMERIEU X VITEK2 COMPACT 11/22/2024 8:44 AM EDT [facility] Comment:Mixed Gram positive organisms with [...] Rosette Franklin MD LAB MICROBIOLOGY - GENERAL ORDE MARIO Final Result [facility] [address] [place] [address], [place] * CT Head WO Contrast (11/17/2024 [...] obtain the completed interpretation. ? Workstation ID: [id number] Up-to-date CT equipment and radiation dose reduction [...] osseous lesions or fractures. Resulting Agency Comment [id number] Procedure Note Charleen Zhang MD - 11/17/2024 [...] possible to obtain thecompleted interpretation. Workstation ID: [id number] Up-to-date CT equipment and radiation dose reduction techniques wereemployed. CTDIvol: 45.8 mGy. DLP: 834 mGy-cm. us Rosette Franklin MD IMG CT PROCEDURES Final Result * (ABNORMAL) CBC Auto Differential (11/17/2024 6:23 PM EDT) WBC 8.8 3.8 - 10.8 10*3/uL 11/17/2024 6:37 PM EDT [facility] RBC 4.68 3.80 - 5.10 10*6/uL 11/17/2024 6:37 PM EDT [facility] Hemoglobin 11.7 11.7 - 15.5 g/dL 11/17/2024 6:37 PM EDT [facility] Hematocrit 36.3 35.0 - 45.0 % 11/17/2024 6:37 PM EDT [facility] MCV 77.6(L) 80.0 - 100.0 fL 11/17/2024 6:37 PM EDT [facility] MCH 25.0(L) 27.0 - 33.0 pg 11/17/2024 6:37 PM EDT [facility] MCHC 32.2 32.0 - 36.0 g/dL 11/17/2024 6:37 PM EDT [facility] RDW 15.2(H) 11.0 [...] - 0.50 10*3/uL 11/17/2024 6:37 PM EDT [facility] Basophil # 0.10 0.00 - 0.20 10*3/uL 11/17/2024 6:37 PM EDT [facility] nRBC % 0.0 /100 WBCs 11/17/2024 6:37 PM EDT [facility] nRBC # <0.01 <0.01 10*3/uL 11/17/2024 6:37 PM EDT [facility] Blood Structure of peripheral vein / Unknown Venipuncture / Unknown 11/17/2024 6:23 PM EDT 11/17/2024 6:34 PM EDT Rosette Franklin MD LAB BLOOD ORDERABLES Final Resu lt Performing Organization Address [facility]/ZIP Co de Phone Number [facility] [address] [place] [id number], [place] * hCG, Qualitative, Serum (11/17/2024 6:23 PM EDT) HCG Qualitative, Serum Negative Negative [facility] MANUAL 11/17/2024 6:59 PM EDT [facility] Comment: hCG may be negative in early . ??Suggest repeat testing in 2-4 days if clinically indicated. ??The results of this test should be interpreted with the patient's clinical presentation. Blood Structure of peripheral vein / Unknown Venipuncture / Unknown 11/17/2024 6:23 PM EDT 11/17/2024 6:34 PM EDT Rosette Franklin MD LAB BLOOD ORDERABLES Final Resu lt Performing Organization Address [facility]/ZIP Co de Phone Number [facility] [address] [place] [id number], [place] * Magnesium (11/17/2024 6:23 PM EDT) MG 2.0 1.6 - 2.4 mg/dL 11/17/2024 7:07 PM EDT [facility] [employer] [facility] Blood Structure of peripheral vein / Unknown Venipuncture / Unknown 11/17/2024 6:23 PM EDT 11/17/2024 6:34 PM EDT us Rosette Franklin MD LAB BLOOD ORDERABLES Final Resu lt [facility] [employer] [facility] [address] [place] [address], * BMP - Basic Metabolic Panel (11/17/2024 6:23 PM EDT) NA 137 135 - 145 mmol/L 11/17/2024 7:07 PM EDT [facility] K 3.9 3.5 - 5.3 mmol/L 11/17/2024 7:07 PM EDT [facility] Cl 101 98 - 107 mmol/L 11/17/2024 7:07 PM EDT [facility] CO2 23 22 - 32 mmol/L 11/17/2024 7:07 PM EDT [facility] BUN 17 7 - 23 mg/dL 11/17/2024 7:07 PM EDT [facility] Creatinine 0.76 0.50 - 1.20 mg/dL 11/17/2024 7:07 PM EDT [facility] Glucose 91 65 - 99 mg/dL 11/17/2024 7:07 PM EDT [facility] Calcium 9.1 8.6 - 10.5 mg/dL 11/17/2024 7:07 PM EDT [facility] Anion Gap 13 5 - 15 11/17/2024 7:07 PM EDT [facility] eGFR >90 >=60 mL/min/1. 73m2 11/17/2024 7:07 PM EDT [facility] Comment:The estimated glomer ular filtration [...] MD LAB BLOOD ORDERABLES Final Resu lt [facility] [address] [place] [address], [place] * ECG 12 lead (11/17/2024 6:14 PM EDT) Ventricular Rate EKG 68 BPM MUSE EKG Atrial Rate 68 BPM MUSE EKG NV Interval 138 ms MUSE EKG QRS Interval 112 ms MUSE EKG QT Interval 400 ms MUSE EKG QTC Interval 425 ms MUSE EKG P [place] 36 degrees MUSE EKG R [place] 45 degrees MUSE EKG T Wave [place] 28 degrees MUSE EKG 11/17/2024 6:14 PM EDT 11/22/2024 11:04 AM EDT Impressions MUSE EKG - 11/22/2024 11:04 AM EDT Normal sinus rhythm Moderate voltage criteria for LVH, may be normal variant Borderline ECG No previous ECGs available Confirmed by Jerome Augustine ([id number]) on 11/22/2024 11:04:44 AM us Rosette Franklin MD ECG ORDERABLES Final Result MUSE EKG from Last 3 Months Insurance [facility] [employer] Care Teams Validation Specialist Relationship Specialty Start Date End Date Patient, Has No Pcp Or Ref DO NOT EDIT THIS RECORD VIA PROVIDER ON THE FLY PCP - General Heating And Ventilating Tender 11/17/24
[2024-11-22] MEDS: 0.9 % Sodium Chloride 1,000 ML 999 ML IV (14:24)
[2024-11-22] MEDS: iohexoL 350 MG/ML 100 ML INFUS..BTL IV (14:43)
--- NOTE | 2024-11-22 14:48 | MHC.CARE ---
[employer] community navigator from Pt's provider's office called to report Pt came to the ED after passing out and striking her head. He stated the provider wants a crisis assessment as they are concerned for depression and possibly psychosis. Pt is feeling increasingly depressed/overwhelmed. She has been steadily declining and is passing out at times. Pt states they are seizures although there is nothing to validate that. Provider does not know if this is a psych issue. Pt denies SI, HI per Antelmo.
[2024-11-22 15:09] VITALS: BP 136/78; PULSE 63; RESP 16; TEMP 37.3; O2SAT 98
[2024-11-22 15:10] VITALS: O2SAT 98
[2024-11-22 18:34] VITALS: BP 136/78; PULSE 63; RESP 16; TEMP 37.3; O2SAT 98
== END 2024-11-22 18:35 | disposition home or self-care (01) ==
PROVIDERS: Physician Assistant Medical; Registered Nurse Emergency; Emergency Provider Emergency Medicine; PCP Internal Medicine
DX: R55 Syncope and collapse (principal); N39.0 Urinary tract infection, site not specified; R40.4 Transient alteration of awareness; R07.89 Other chest pain; R51.9 Headache, unspecified; I10 Essential (primary) hypertension; Z03.818 Encounter for observation for suspected exposure to other biological agents ruled out; Z79.899 Other long term (current) drug therapy
CPT/HCPCS: 0241U; 70450; 70486; 71275; 72125; 80053; 82550; 83605; 83735; 84443; 84484; 84702; 85025; 93005; 96360; 96361; 99285; Q9967; S9485

== ENCOUNTER → 2024-11-22 11:41 | Outpatient (BNV) | payer OTHER, SELFPAY | PROVIDERS: Emergency Provider Emergency Medicine; PCP Internal Medicine; Visit Provider Internal Medicine | DX: R07.9 Chest pain, unspecified (principal) | CPT/HCPCS: 93010 ==

== ENCOUNTER → 2024-11-22 11:41 | Outpatient (BNV) | payer OTHER, SELFPAY | PROVIDERS: Emergency Provider Emergency Medicine; PCP Internal Medicine; Visit Provider Radiology Diagnostic Radiology | DX: R55 Syncope and collapse (principal); S09.90XA Unspecified injury of head, initial encounter; S09.92XA Unspecified injury of nose, initial encounter; W19.XXXA Unspecified fall, initial encounter | CPT/HCPCS: 70450; 70486; 71275; 72125 ==

== ENCOUNTER 2024-12-10 07:23 | Emergency (ER) | payer OTHER, SELFPAY ==
--- NOTE | ~2024-12-10 | XR_ITS ---
EXAMINATION: XR CHEST 2 VIEWS HISTORY: left sided chest/ breast pain COMPARISON: Comparison is made with the prior examination dated 10/20/2024. FINDINGS: PA and lateral views of the chest are submitted. The lungs are expanded and clear. There is no pleural effusion, pneumothorax, or pulmonary vascular congestion. The heart is normal in size. The bones are intact. XR/XR chest 2V IMPRESSION: No acute cardiopulmonary abnormality. Electronically signed by: Fabio Montalvo MD 12/10/2024 10:01 AM EDT
[2024-12-10 07:40] VITALS: BP 133/86; PULSE 86; RESP 18; TEMP 36.4; O2SAT 97; BMI 31.9
--- OUTSIDE RECORDS SUMMARY | 2024-12-10 08:09 | XMS_ITS | Clinical Summary ---
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
--- OUTSIDE RECORDS SUMMARY | 2024-12-10 08:10 | XMS_ITS | Referral Summary ---
Author Organization [facility] Address [address] [place] [address] Care Team Providers Care Coffee Weigher Name Role Phone Patient, Has No Pcp Or Ref Primary Care Provider Unavailable Encounters Date Type Department Care Team Description 11/17/2024 5:48 PM EDT - 11/18/2024 12:23 AM EDT Emergency [facility] Emergency Department [address] [place] [address] Rosette Franklin MD Seizure-like activity (Primary Dx) Discharge Disposition: Home or Self [...] Not on file Procedures * Due to [place] state law, this organization might not be [...] Last 3 Months Results * Due to [place] YouGoDo law, this organization might not be sharing [...] obtain the completed interpretation. ? Workstation ID: [id number] Narrative 11/17/2024 11:12 PM EDT INDICATION: 29 years Female who presents with/for Fatigue and malaise TECHNIQUE: Single view of the chest COMPARISON: None FINDINGS: Lines/Tubes/Support: Telemetry leads. Mediastinum: Cardiomediastinal silhouette is without acute findings. Trachea appears midline. Lungs/Pleura: Symmetrically inflated without focal consolidation, significant pleural effusion, or sizable pneumothorax. Musculoskeletal: No displaced fractures. Abdomen: No acute findings. Resulting Agency Comment [id number] Procedure Note Marco A Gonzalez MD - [...] possible to obtain thecompleted interpretation. Workstation ID: [id number] Rosette Franklin MD IMG XR PROCEDURES Final Result * Repeat Troponin #1 (11/17/2024 10:10 PM EDT) Only the most recent of2 resultswithin the time period is included. Troponin T High Sensitivity <6 <=13 ng/L 11/17/2024 10:37 PM EDT [facility] Comment: Ea-Bkuzajua-W level of 52 ng/L or higher at [...] be evaluated in line with the 4th [place] Definition of AMI. Troponin baseline and serial [...] MD LAB BLOOD ORDERABLES Final Resu lt [facility] [address] [place] [address], [place] * (ABNORMAL) Microscopic Urinalysis Only (11/17/2024 8:50 PM EDT) WBC, Urine 15-20(A) 0-2, None Seen /HPF [facility] MANUAL 11/17/2024 9:55 PM EDT [facility] RBC, Urine Too Numerous To Count(A) 0-2, None Seen /HPF [facility] MANUAL 11/17/2024 9:55 PM EDT [facility] Bacteria, Urine 1+(A) None Seen /HPF [facility] MANUAL 11/17/2024 9:55 PM EDT [facility] Squamous Epithelial Cells, Urine Moderate /HPF [facility] MANUAL 11/17/2024 9:55 PM EDT [facility] Trichomonas, Urine Present(A) None Seen /HPF [facility] MANUAL 11/17/2024 9:55 PM EDT [facility] Urine Urine specimen collection, clean catch / Unknown Non-Blood Collection / Unknown 11/17/2024 8:50 PM EDT 11/17/2024 8:55 PM EDT us Rosette Franklin MD LAB URINE ORDERABLES Final Resu lt [facility] [address] [place] [address], [place] * (ABNORMAL) Urinalysis W/Reflex to Microscopic & Culture (11/17/2024 8:50 PM EDT) Color, Urine Yellow Yellow 11/17/2024 9:36 PM EDT [facility] Clarity, Urine Clear Clear 11/17/2024 9:36 PM EDT [facility] Specific [place], Urine 1.015 1.005 - 1.030 11/17/2024 9:36 PM EDT [facility] pH, Urine 7.0 5.0 - 8.0 11/17/2024 9:36 PM EDT [facility] Protein, Urine 30(A) Negative mg/dL 11/17/2024 9:36 PM EDT [facility] Glucose, Urine Negative Negative mg/dL 11/17/2024 9:36 PM EDT [facility] Ketones, Urine Negative Negative mg/dL 11/17/2024 9:36 PM EDT [facility] Bilirubin, Urine Negative Negative 11/17/2024 9:36 PM EDT [facility] Blood, Urine Large(A) Negative 11/17/2024 9:36 PM EDT [facility] Nitrite, Urine Negative Negative 11/17/2024 9:36 PM EDT [facility] Urobilinogen , Urine 0.2 0.2, 1.0 E.U./dL 11/17/2024 9:36 PM EDT [facility] Leukocyte Esterase, Urine Moderate(A) Negative 11/17/2024 9:36 PM EDT [facility] Urine Urine specimen collection, clean catch / Unknown Non-Blood Collection / Unknown 11/17/2024 8:50 PM EDT 11/17/2024 8:55 PM EDT Narrative [facility] - 11/17/2024 9:36 PM EDT Some urinalysis results will not meet the criteria for reflex urine culture although certain urine values may be abnormal. ??Additional testing can be ordered by the provider if clinically warranted. us Rosette Franklin MD LAB URINE ORDERABLES Final Resu lt [facility] [address] [place] [address], * (ABNORMAL) Urine Culture, Routine (11/17/2024 8:50 PM EDT) Urine Culture Workup Less than 10,000 CFU/mL Streptococcus agalactiae(A) BIOMERIEU X VITEK2 COMPACT 11/22/2024 8:44 AM EDT [facility] Urine Culture Workup 10,000-25,000 CFU/mL BIOMERIEU X VITEK2 COMPACT 11/22/2024 8:44 AM EDT [facility] Comment:Mixed Gram positive organisms with [...] Franklin MD LAB MICROBIOLOGY - GENERAL ORDE [facility] Final Result [address] [address], * CT Head WO Contrast (11/17/2024 6:33 [...] obtain the completed interpretation. ? Workstation ID: [id number] Up-to-date CT equipment and radiation dose reduction [...] osseous lesions or fractures. Resulting Agency Comment [id number] Procedure Note Charleen Zhang MD - 11/17/2024 [...] possible to obtain thecompleted interpretation. Workstation ID: [id number] Up-to-date CT equipment and radiation dose reduction techniques wereemployed. CTDIvol: 45.8 mGy. DLP: 834 mGy-cm. Rosette Franklin MD IM CT PROCEDURES Final Result * (ABNORMAL) CBC Auto Differential (11/17/2024 6:23 PM EDT) WBC 8.8 3.8 - 10.8 10*3/uL 11/17/2024 6:37 PM EDT [facility] RBC 4.68 3.80 - 5.10 [...] % 0.8 % 11/17/2024 6:37 PM EDT [facility] Neutrophil # 5.75 1.50 - 7.80 10*3/uL 11/17/2024 6:37 PM EDT [facility] Immature Grans # 0.03 <=0.03 10*3/uL 11/17/2024 6:37 PM EDT [facility] Lymphocyte # 2.20 0.85 - 3.90 10*3/uL 11/17/2024 6:37 PM EDT [facility] Monocyte # 0.50 0.20 - 0.95 10*3/uL 11/17/2024 6:37 PM EDT [facility] Eosinophil # 0.20 0.02 - 0.50 10*3/uL 11/17/2024 6:37 PM EDT [facility] Basophil # 0.10 0.00 - 0.20 10*3/uL 11/17/2024 6:37 PM EDT [facility] nRBC % 0.0 /100 WBCs 11/17/2024 6:37 PM EDT [facility] nRBC # <0.01 <0.01 10*3/uL 11/17/2024 6:37 PM EDT [facility] Blood Structure of peripheral vein / Unknown Venipuncture / Unknown 11/17/2024 6:23 PM EDT 11/17/2024 6:34 PM EDT us Rosette Franklin MD LAB BLOOD ORDERABLES Final Resu lt [facility] [address] [place] [address], [place] * hCG, Qualitative, Serum (11/17/2024 6:23 PM EDT) HCG Qualitative, Serum Negative Negative [facility]UAL 11/17/2024 6:59 PM EDT [facility] Comment: hCG may be negative in early . ??Suggest repeat testing in 2-4 days if clinically indicated. ??The results of this test should be interpreted with the patient's clinical presentation. Blood Structure of peripheral vein / Unknown Venipuncture / Unknown 11/17/2024 6:23 PM EDT 11/17/2024 6:34 PM EDT Rosette Franklin MD LAB BLOOD ORDERABLES Final Resu lt Performing Organization Address City/[facility]/ZIP Co de Phone Number [facility] [address] [place] [address], [place] * Magnesium (11/17/2024 6:23 PM EDT) Pathologist [facility] MG 2.0 1.6 - 2.4 mg/dL 11/17/2024 7:07 PM EDT [facility] Blood Structure of peripheral vein / Unknown Venipuncture / Unknown 11/17/2024 6:23 PM EDT 11/17/2024 6:34 PM EDT Rosette Franklin MD LAB BLOOD ORDERABLES Final Resu lt [facility] [address] [place] [address], [place] * BMP - Basic Metabolic Panel (11/17/2024 6:23 PM EDT) Pathologist [facility] NA 137 135 - 145 mmol/L 11/17/2024 7:07 PM EDT [facility] K 3.9 3.5 - 5.3 mmol/L 11/17/2024 7:07 PM EDT [facility] Cl 101 98 - 107 mmol/L 11/17/2024 7:07 PM EDT [facility] CO2 23 22 - 32 mmol/L 11/17/2024 7:07 PM EDT [facility] BUN 17 7 - 23 mg/dL 11/17/2024 7:07 PM EDT [facility] Creatinine 0.76 0.50 - 1.20 mg/dL 11/17/2024 7:07 PM EDT [facility] Glucose 91 65 - 99 mg/dL 11/17/2024 7:07 PM EDT [facility] Calcium 9.1 8.6 - 10.5 mg/dL 11/17/2024 7:07 PM EDT [facility] Anion Gap 13 5 - 15 11/17/2024 7:07 PM EDT [facility] eGFR >90 >=60 mL/min/1. 73m2 11/17/2024 7:07 PM EDT [facility] Comment:The estimated glomer ular filtration [...] MD LAB BLOOD ORDERABLES Final Resu lt [facility] [address] [place] [address], [place] * ECG 12 lead (11/17/2024 6:14 PM EDT) Ventricular Rate EKG 68 BPM MUSE EKG Atrial Rate 68 BPM MUSE EKG CA Interval 138 ms MUSE EKG QRS Interval 112 ms MUSE EKG QT Interval 400 ms MUSE EKG QTC Interval 425 ms MUSE EKG P [place] 36 degrees MUSE EKG R [place] 45 degrees MUSE EKG T Wave [place] 28 degrees MUSE EKG 11/17/2024 6:14 PM EDT 11/22/2024 11:04 AM EDT Impressions MUSE EKG - 11/22/2024 11:04 AM EDT Normal sinus rhythm Moderate voltage criteria for LVH, may be normal variant Borderline ECG No previous ECGs available Confirmed by Jerome Augustine ([id number]) on 11/22/2024 11:04:44 AM Rosette Franklin MD ECG ORDERABLES Final Result Performing Organization Address City/[facility] Co de Phone Number MUSE EKG from Last 3 Months Insurance [employer] Care Teams Coffee Weigher Relationship Specialty Start Date End Date Patient, Has No Pcp Or Ref DO NOT EDIT THIS RECORD VIA PROVIDER ON THE FLY PCP - General [employer] Principal 11/17/24
--- OUTSIDE RECORDS SUMMARY | 2024-12-10 08:10 | XMS_ITS | Clinical Summary ---
Author Organization [facility] Address [address] [place] [address] Care Team Providers Care Crossing Watchman Name Role Phone Patient, Has No Pcp Or Ref Primary Care Provider Unavailable Allergies Active Allergy Reactions Criticality Noted Date Comments Escitalopram Oxalate Vomiting 11/17/2024 Lorazepam Hives 11/17/2024 Penicillins Hives 11/17/2024 Medications amLODIPine (NORVASC) 10 mg tablet Take 10 mg by mouth once a day. Active Encounters Date Type Department Care Team Description 11/17/2024 5:48 PM EDT - 11/18/2024 12:23 AM EDT Emergency [facility] Emergency Department [address] [place] [address] Rosette Franklin MD Seizure-like activity (Primary Dx) [...] Completed 06/06/2024, 06/04/2019 Procedures * Due to [place] state law, this organization might not be [...] Last 3 Months Results * Due to [place] state law, this organization might not be [...] obtain the completed interpretation. ? Workstation ID: [id number] Narrative 11/17/2024 11:12 PM EDT INDICATION: 29 years Female who presents with/for Fatigue and malaise TECHNIQUE: Single view of the chest COMPARISON: None FINDINGS: Lines/Tubes/Support: Telemetry leads. Mediastinum: Cardiomediastinal silhouette is without acute findings. Trachea appears midline. Lungs/Pleura: Symmetrically inflated without focal consolidation, significant pleural effusion, or sizable pneumothorax. Musculoskeletal: No displaced fractures. Abdomen: No acute findings. Resulting Agency Comment [id number] Procedure Note Marco A Gonzalez MD - [...] possible to obtain thecompleted interpretation. Workstation ID: [id number] Rosette Franklin MD IMG XR PROCEDURES Final Result * Repeat Troponin #1 (11/17/2024 10:10 PM EDT) Only the most recent of2 resultswithin the time period is included. Troponin T High Sensitivity <6 <=13 ng/L 11/17/2024 10:37 PM EDT [facility] Comment: Fl-Izewzdgi-V level of 52 ng/L or higher at [...] be evaluated in line with the 4th [place] Definition of AMI. Troponin baseline and serial [...] MD LAB BLOOD ORDERABLES Final Resu lt [facility] [employer] [employer] [address] [place] [address], [place] * (ABNORMAL) Microscopic Urinalysis Only (11/17/2024 8:50 PM EDT) WBC, Urine 15-20(A) 0-2, None Seen /HPF [facility] 11/17/2024 9:55 PM EDT [facility] RBC, Urine Too Numerous To Count(A) 0-2, None Seen /HPF [facility] MANUAL 11/17/2024 9:55 PM EDT [facility] Bacteria, Urine 1+(A) None Seen /HPF [facility] MANUAL 11/17/2024 9:55 PM EDT [facility] Squamous Epithelial Cells, Urine Moderate /HPF [facility] MANUAL 11/17/2024 9:55 PM EDT [facility] [place] [facility] Trichomonas, Urine Present(A) None Seen /HPF [facility] MANUAL 11/17/2024 9:55 PM EDT [facility] Urine Urine specimen collection, clean catch / Unknown Non-Blood Collection / Unknown 11/17/2024 8:50 PM EDT 11/17/2024 8:55 PM EDT us Rosette Franklin MD LAB URINE ORDERABLES Final Resu lt [facility] [facility] [address] [place] [address], [place] * (ABNORMAL) Urinalysis W/Reflex to Microscopic & Culture (11/17/2024 8:50 PM EDT) Color, Urine Yellow Yellow 11/17/2024 9:36 PM EDT [facility] Clarity, Urine Clear Clear 11/17/2024 9:36 PM EDT [facility] Specific [place], Urine 1.015 1.005 - 1.030 11/17/2024 9:36 PM EDT [facility] pH, Urine 7.0 5.0 - 8.0 11/17/2024 9:36 PM EDT [facility] Protein, Urine 30(A) Negative mg/dL 11/17/2024 9:36 PM EDT [facility] Glucose, Urine Negative Negative mg/dL 11/17/2024 9:36 PM EDT [facility] Ketones, Urine Negative Negative mg/dL 11/17/2024 9:36 PM EDT [facility] Bilirubin, Urine Negative Negative 11/17/2024 9:36 PM EDT [facility] Blood, Urine Large(A) Negative 11/17/2024 9:36 PM EDT [facility] Nitrite, Urine Negative Negative 11/17/2024 9:36 PM EDT [facility] Urobilinogen , Urine 0.2 0.2, 1.0 E.U./dL 11/17/2024 9:36 PM EDT [facility] Leukocyte Esterase, Urine Moderate(A) Negative 11/17/2024 9:36 PM EDT [facility] Urine Urine specimen collection, clean catch / Unknown Non-Blood Collection / Unknown 11/17/2024 8:50 PM EDT 11/17/2024 8:55 PM EDT [facility] - 11/17/2024 9:36 PM EDT Some urinalysis results will not meet the criteria for reflex urine culture although certain urine values may be abnormal. ??Additional testing can be ordered by the provider if clinically warranted. us Rosette Franklin MD LAB URINE ORDERABLES Final Resu lt [facility] [address] [place] [address], [place] * (ABNORMAL) Urine Culture, Routine (11/17/2024 8:50 PM EDT) Urine Culture Workup Less than 10,000 CFU/mL Streptococcus agalactiae(A) BIOMERIEU X VITEK2 COMPACT 11/22/2024 8:44 AM EDT [facility] Urine Culture Workup 10,000-25,000 CFU/mL BIOMERIEU X VITEK2 COMPACT 11/22/2024 8:44 AM EDT [facility] Comment:Mixed Gram positive organisms with [...] Franklin MD LAB MICROBIOLOGY - GENERAL ORDE [facility] Final Result [facility] [address] [place] [address], [place] * CT Head WO Contrast (11/17/2024 [...] obtain the completed interpretation. ? Workstation ID: [id number] Up-to-date CT equipment and radiation dose reduction [...] osseous lesions or fractures. Resulting Agency Comment [id number] Procedure Note Charleen Zhang MD - 11/17/2024 [...] possible to obtain thecompleted interpretation. Workstation ID: [id number] Up-to-date CT equipment and radiation dose reduction techniques wereemployed. CTDIvol: 45.8 mGy. DLP: 834 mGy-cm. us Rosette Franklin MD IM CT PROCEDURES Final Result * (ABNORMAL) CBC Auto Differential (11/17/2024 6:23 PM EDT) WBC 8.8 3.8 - 10.8 10*3/uL 11/17/2024 6:37 PM EDT [facility] RBC 4.68 3.80 - 5.10 10*6/uL 11/17/2024 6:37 PM EDT [facility] Hemoglobin 11.7 11.7 - 15.5 g/dL 11/17/2024 6:37 PM EDT [facility] Hematocrit 36.3 35.0 - 45.0 % 11/17/2024 6:37 PM EDT [facility] MCV 77.6(L) 80.0 - 100.0 fL 11/17/2024 6:37 PM EDT [facility] MCH 25.0(L) 27.0 - 33.0 pg 11/17/2024 6:37 PM EDT [facility] MCHC 32.2 32.0 - 36.0 g/dL 11/17/2024 6:37 PM EDT [facility] RDW 15.2(H) 11.0 [...] 0.50 10*3/uL 11/17/2024 6:37 PM EDT [facility] Basophil # 0.10 0.00 - 0.20 10*3/uL 11/17/2024 6:37 PM EDT [facility] nRBC % 0.0 /100 WBCs 11/17/2024 6:37 PM EDT [facility] nRBC # <0.01 <0.01 10*3/uL 11/17/2024 6:37 PM EDT [facility] Blood Structure of peripheral vein / Unknown Venipuncture / Unknown 11/17/2024 6:23 PM EDT 11/17/2024 6:34 PM EDT us Rosette Franklin MD LAB BLOOD ORDERABLES Final Resu lt Performing Organization Address [facility] Co de Phone Number [address] [address], [place] * hCG, Qualitative, Serum (11/17/2024 6:23 PM EDT) HCG Qualitative, Serum Negative Negative [facility] 11/17/2024 6:59 PM EDT [facility] Comment: hCG may be negative in early . ??Suggest repeat testing in 2-4 days if clinically indicated. ??The results of this test should be interpreted with the patient's clinical presentation. Blood Structure of peripheral vein / Unknown Venipuncture / Unknown 11/17/2024 6:23 PM EDT 11/17/2024 6:34 PM EDT us Rosette Franklin MD LAB BLOOD ORDERABLES Final Resu lt Performing Organization Address [facility]/ZIP Co de Phone Number [facility] [address] [place] [address], [place] * Magnesium (11/17/2024 6:23 PM EDT) MG 2.0 1.6 - 2.4 mg/dL 11/17/2024 7:07 PM EDT [facility] Blood Structure of peripheral vein / Unknown Venipuncture / Unknown 11/17/2024 6:23 PM EDT 11/17/2024 6:34 PM EDT us Rosette Franklin MD LAB BLOOD ORDERABLES Final Resu lt [facility] [address] [place] [address], * BMP - Basic Metabolic Panel (11/17/2024 6:23 PM EDT) NA 137 135 - 145 mmol/L 11/17/2024 7:07 PM EDT [facility] K 3.9 3.5 - 5.3 mmol/L 11/17/2024 7:07 PM EDT [facility] Cl 101 98 - 107 mmol/L 11/17/2024 7:07 PM EDT [facility] CO2 23 22 - 32 mmol/L 11/17/2024 7:07 PM EDT [facility] BUN 17 7 - 23 mg/dL 11/17/2024 7:07 PM EDT [facility] Creatinine 0.76 0.50 - 1.20 mg/dL 11/17/2024 7:07 PM EDT [facility] Glucose 91 65 - 99 mg/dL 11/17/2024 7:07 PM EDT [facility] Calcium 9.1 8.6 - 10.5 mg/dL 11/17/2024 7:07 PM EDT [facility] Anion Gap 13 5 - 15 11/17/2024 7:07 PM EDT [facility] eGFR >90 >=60 mL/min/1. 73m2 11/17/2024 7:07 PM EDT [facility] Comment:The estimated glomer ular filtration [...] MD LAB BLOOD ORDERABLES Final Resu lt [facility] [address] [place] [address], [place] * ECG 12 lead (11/17/2024 6:14 PM EDT) Ventricular Rate EKG 68 BPM MUSE EKG Atrial Rate 68 BPM MUSE EKG OR Interval 138 ms MUSE EKG QRS Interval 112 ms MUSE EKG QT Interval 400 ms MUSE EKG QTC Interval 425 ms MUSE EKG P [place] 36 degrees MUSE EKG R [place] 45 degrees MUSE EKG T Wave [place] 28 degrees MUSE EKG 11/17/2024 6:14 PM EDT 11/22/2024 11:04 AM EDT Impressions MUSE EKG - 11/22/2024 11:04 AM EDT Normal sinus rhythm Moderate voltage criteria for LVH, may be normal variant Borderline ECG No previous ECGs available Confirmed by Jerome Augustine ([id number]) on 11/22/2024 11:04:44 AM us Rosette Franklin MD ECG ORDERABLES Final Result MUSE EKG from Last 3 Months Insurance [employer] Care Teams Crossing Watchman Relationship Specialty Start Date End Date Patient, Has No Pcp Or Ref DO NOT EDIT THIS RECORD VIA PROVIDER ON THE FLY PCP - General Credit Control Administrator 11/17/24
[2024-12-10 08:36] LABS: MANUAL DIFF FLAG NO
[2024-12-10 08:38] LABS: Basophils Absolute Auto 0.1 X10*3/uL (0.0-0.2); Basophils Percent Auto 0.7 % (0-2); Eosinophils Absolute Auto 0.2 X10*3/uL (0.0-0.4); Eosinophils Percent Auto 3.3 % (0-4); Hematocrit 34.9 % (37.0-47.0); Hemoglobin 11.2 g/dl (12.0-16.0); Imm Gran Abs Auto 0.03 X10*3/uL (0.00-0.03); Imm Gran Pct Auto 0.4 % (0.0-0.4); Lymphocytes Absolute Auto 1.7 X10*3/uL (1.2-4.9); Lymphocytes Percent Auto 23.6 % (20-40); Mean Corpuscular HGB Conc 32.1 g/dl (31.0-35.0); Mean Corpuscular Hemoglobin 24.4 pg (27.0-33.0); Mean Platelet Volume 11.4 fL (9.4-12.3); Monocytes Absolute Auto 0.5 X10*3/uL (0.1-1.2); Neutrophils Absolute Auto 4.7 x10*3/uL (2.0-8.3); Platelet Count 263 X10*3/uL (160-400); Red Blood Count 4.59 X10*6/uL (4.20-5.50); Red Cell Distribution Width 14.6 % (11.0-16.0); White Blood Count 7.2 X10*3/uL (4.8-10.8)
[2024-12-10 08:53] LABS: Alanine Aminotransferase 24 U/L (0-31); Albumin Level 4.1 g/dL (3.5-5.0); Alkaline Phosphatase 78 U/L (39-117); Anion Gap 9 (12-20); Aspartate Amino Transferase 22 U/L (5-31); Bilirubin Total 0.3 mg/dL (0.0-1.0); Blood Urea Nitrogen 8 mg/dL (9-16); Calcium 9.8 mg/dL (8.4-10.2); Carbon Dioxide 25 mmol/L (22-29); Chloride 110 mmol/L (96-108); Creatinine Clr Calc Pharmacy 98.6; Estimated Glomerular Filt Rate > 60; Glucose Random 107 mg/dL (60-115); Sodium 140 mmol/L (135-145); Total Protein 7.5 g/dL (6.5-8.0)
[2024-12-10 09:19] LABS: Erythrocyte Sedimentation Rate 17 MM/HR (0-20)
--- NOTE | 2024-12-10 09:43 | ED_ITS ---
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 Pain is localized to the superior aspect of the left breast with radiation into her left lateral rib area. Pain has been constant since onset. she rates this pain a 7/10. She trialed OTC Tylenol without much improvement. she reports history of similar pain in the past. She last breast fed over 2 months ago. She is no longer producing milk. Denies hx of blocked milk ducts or breast infections. Denies any redness/swelling or other skin changes to the breast. Denies itching. Denies nipple discharge. Denies blunt trauma or injury. Denies recent heavy lifting. Denies previous breast surgeries. Family history significant for paternal aunt who developed breast cancer at age 35 and a maternal aunt who developed breast cancer at the age of 40. On chart review, patient was evaluated outpatient for left breast pain approximately 2 years ago with unremarkable work up. Related Data Previous Rx's ?Medication ?Instructions ?Recorded miscellaneous medical supply #1 ea 03/30/23 (Blood Pressure Cuff) magnesium oxide 400 mg (241.3 mg 400 mg PO BEDTIME 30 days #30 tabs 01/31/24 magnesium) tablet sennosides 8.6 mg tablet (Senna 8.6 mg PO BEDTIME PRN constipation 02/01/24 Lax) #30 tabs diphenhydramine HCl 25 mg capsule 25 mg PO TID PRN allergic reaction 05/07/24 (Benadryl) or migraine headache 30 days #30 caps amlodipine 10 mg tablet 10 mg PO DAILY 90 days #90 tabs 10/14/24 propranolol 10 mg tablet 15 mg (1.5 x 10 mg) PO BID 90 days 10/14/24 #270 tabs sertraline 50 mg tablet 75 mg (1.5 x 50 mg) PO DAILY 30 10/14/24 days #45 tabs albuterol sulfate 1.25 mg/3 mL 1.25 mg (3 mL) inhalation Q4-6H 10/20/24 solution for nebulization PRN bronchospasm #90 mL albuterol sulfate 90 mcg/actuation 2 inh inhalation Q4-6H PRN 10/20/24 breath activated powder shortness of breath or wheezing #1 inhaler,sensor (Proair Digihaler) ea cefuroxime axetil 250 mg tablet 250 mg PO BID 7 days #14 tabs 11/22/24 Allergies Allergy/AdvReac Type Severity Reaction Status Date / Time morphine Allergy Severe Vomiting Verified 12/10/24 07:44 chlorthalidone Allergy Intermediate Chest Pain Verified 12/10/24 07:44 glucagon Allergy Intermediate Unknown Verified 12/10/24 07:44 guaifenesin [From Mucinex] Allergy Intermediate Unknown Verified 12/10/24 07:44 latex Allergy Intermediate Rash Verified 12/10/24 07:44 amoxicillin Allergy Mild Rash Verified 12/10/24 07:44 clavulanic acid Allergy Unknown Unknown Verified 12/10/24 07:44 [From Augmentin] cyclobenzaprine Allergy Palpitation Verified 12/10/24 07:44 [From Flexeril] s escitalopram Allergy Palpitation Verified 12/10/24 07:44 s hydralazine Allergy Nausea and Verified 12/10/24 07:44 Vomiting lorazepam [From Ativan] Allergy Palpitation Verified 12/10/24 07:44 s nifedipine Allergy Intermediate Unknown Uncoded 11/22/24 08:36 Review of Systems 2 Review of Systems: Yes all other systems are reviewed and are negative PMFSH Past Medical History Attestation statement: The following information was validated with the patient. Source: old records reviewed and nursing notes reviewed Medical History Graves disease Graves' eye disease Pituitary microadenoma Psychogenic nonepileptic seizure Hyperthyroidism Essential hypertension Breast pain, left Overweight (BMI 25.0-29.9) Heavy menses Chronic constipation GERD without esophagitis Anemia HTN (hypertension) Anxiety Surgical History History of tubal ligation H/O tooth extraction (~12/10/22) H/O: Family History Family History Paternal Aunt Breast cancer, Onset Age: 35 Maternal Aunt Breast cancer, Onset Age: 40 Other Diabetes High cholesterol Hypertension Social History Social History Housing: House Alcohol intake: never Patient Tobacco Use Status: Never used Tobacco Tobacco use type: Cigarette e-Cigarette/Vaping Use: Never Used Second Hand Smoke Exposure: No service: No Current occupational status: unemployed Cognitive needs: No Hearing needs: No Vision needs: Yes (Glasses) Physical Exam ED Vital Signs: Vital Signs - 24 hr 12/10/24 07:40 12/10/24 12:22 Temperature 97.5 F 97.5 F Pulse Rate 86 86 Respiratory Rate 18 18 Blood Pressure 133/86 133/86 Pulse Oximetry 97 97 Oxygen Delivery Method Room Air Room Air BMI result Body Mass Index 31.9 Vital signs stable, afebrile General: Well appearing, in no acute distress. Skin: Warm, dry, intact. No rashes or lesions. Head: Normocephalic, atraumatic. Cardiac: Chest wall symmetric. 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 left breast without overlying skin changes, nipple inversion, or noted discharge. left breast with minimal tenderness to palpation along the lower inner quadrant. no palpable masses. No expressible discharge from nipple. No LAD noted. exam of right breast unremarkable. Lungs: Normal respiratory effort without accessory muscle use. CTA bilaterally Neuro: AOx3. Normal speech. Ambulating with steady gait. Psych: Appropriate mood and affect. Responds appropriately to questions. Course Course Course Narrative: CBC a without leukocytosis or left shift. Microcytic anemia. H&H stable when compared to priors. Chemistry without acute electrolyte abnormality requiring intervention. No KAYODE. Liver function at baseline. Troponin undetectable. EKG showing normal sinus rhythm without acute ischemic changes or ST elevations. Chest x-ray unremarkable. > no palpable mass on examination. No concern for abscess. There is some tenderness of the left breast. I did advise patient to follow up with her PCP and also OBGYN. Patient has remained stable throughout ED visit today. Discussed worrisome signs and symptoms and when to return to the ED. All questions answered at this time. Patient is agreeable with disposition and stable for discharge. Medications Administered Discontinued Medications Generic Name Dose Route Start Last Admin Trade Name Freq PRN Reason Stop Dose Admin Ketorolac Tromethamine 30 mg 12/10/24 09:41 12/10/24 10:57 Ketorolac Tromethamine 30 Mg/Ml Vial IM 12/10/24 09:42 30 mg ONCE ONE Administration Medical Decision Making Medical Decision Making [facility] Narrative: 29-year-old female with pmhx significant for anxiety, anemia, hypertension, car, hyperthyroidism, seizures presents to the ED today for evaluation of left breast pain x 24 hours. vital signs stable. afebrile. she is well appearing and in NAD. left breast without overlying skin changes, nipple inversion, or noted discharge. left breast with minimal tenderness to palpation along the lower inner quadrant. no palpable masses. No expressible discharge from nipple. No LAD noted. exam of right breast unremarkable. Differential diagnosis includes anemia, electrolyte abnormality, ACS, arrhythmia, pneumonia Unlikely breast mass, abscess Plan for blood work, ekg, CXR, pain control and re-evaluation. Differential Diagnosis Differential Diagnoses: The differential diagnosis associated with the presentation includes as above. Admission/Observation not indicated. Lab Data [facility] Lab Attestation statement: I reviewed the patient's lab results. as above. 12/10/24 08:31 12/10/24 08:31 Labs: Lab Results 12/10/24 Range/Units 08:31 WBC 7.2 (4.8-10.8) X10*3/uL RBC 4.59 (4.20-5.50) X10*6/uL Hgb 11.2 L (12.0-16.0) g/dl Hct 34.9 L (37.0-47.0) % MCV 76.0 L (80.0-98.0) fL MCH 24.4 L (27.0-33.0) pg MCHC 32.1 (31.0-35.0) g/dl RDW 14.6 (11.0-16.0) % Plt Count 263 D (160-400) X10*3/uL MPV 11.4 (9.4-12.3) fL Immature Gran % (Auto) 0.4 (0.0-0.4) % Neut % (Auto) 65.0 (45-73) % Lymph % (Auto) 23.6 (20-40) % [place] % (Auto) 7.0 (2-11) % Eos % (Auto) 3.3 (0-4) % Baso % (Auto) 0.7 (0-2) % Lymph # (Auto) 1.7 (1.2-4.9) X10*3/uL [place] # (Auto) 0.5 (0.1-1.2) X10*3/uL Eos # (Auto) 0.2 (0.0-0.4) X10*3/uL Baso # (Auto) 0.1 (0.0-0.2) X10*3/uL Abs Immat Gran (auto) 0.03 (0.00-0.03) X10*3/uL Absolute Neuts (auto) 4.7 (2.0-8.3) x10*3/uL Absolute Nucleated RBC 0.000 (0.0-0.012) X10*3/uL Nucleated RBC % (auto) 0.0 (0.0-0.2) /100WBC ESR 17 (0-20) MM/HR Sodium 140 (135-145) mmol/L Potassium 4.0 (3.3-5.1) mmol/L Chloride 110 H (96-108) mmol/L Carbon Dioxide 25 (22-29) mmol/L Anion Gap 9 L (12-20) BUN 8 L (9-16) mg/dL Creatinine 0.75 (0.5-1.4) mg/dL Estim Creat Clear Calc 98.6 Estimated GFR > 60 Random Glucose 107 (60-115) mg/dL Calcium 9.8 (8.4-10.2) mg/dL Total Bilirubin 0.3 (0.0-1.0) mg/dL AST 22 (5-31) U/L ALT 24 (0-31) U/L Alkaline Phosphatase 78 (39-117) U/L Troponin I High Sens < 2.7 (<3.5-17.0) ng/L Total Protein 7.5 (6.5-8.0) g/dL Albumin 4.1 (3.5-5.0) g/dL Independent Interpretation I performed an independent interpretation of an: EKG and Plain X-Ray Interpretation: cxr without infiltrate or consolidation ekg showing NSR rate 69 bpm, no acute ischemic changes or st elevations Radiology Impression Discussion of test interpretation with radiology: I have reviewed the radiologist's reading. Radiologist Impression: Procedure(s): XR chest 2V Accession Number(s): [id number] cc: Jeffy Gutierrez MD; Yessica Fernandez~ EXAMINATION: XR CHEST 2 VIEWS HISTORY: left sided chest/ breast pain COMPARISON: Comparison is made with the prior examination dated 10/20/2024. FINDINGS: PA and lateral views of the chest are submitted. The lungs are expanded and clear. There is no pleural effusion, pneumothorax, or pulmonary vascular congestion. The heart is normal in size. The bones are intact. XR/XR chest 2V IMPRESSION: No acute cardiopulmonary abnormality. Electronically signed by: Fabio Montalvo MD 12/10/2024 10:01 AM EDT RP External Record Review External record reviewed: Inpatient record, Office record and Outpatient record Prescription Management I considered prescription management with: Pain Medication Chronic Conditions Patient?s care impacted by: Hypertension Social Determinants Patient?s care significantly limited by Social Determinants of Health including: Other Social Determinant of Health Critical Care Time Critical Care Time Critical Care Time: No Discharge Plan Discharge Clinical Impression: Pain of left breast Patient Disposition: Home, Self-Care Instructions: Breast Care for the Non- Mother (ED) Additional Instructions: You were evaluated in the ED today for left breast pain. Your work up today is reassuring. As discussed, you need to follow up with your OBGYN outpatient for ultrasound of breast and possible mammogram. Keep your appointment with them in two weeks. I have also provided you with a referral to a general surgeon. You may call them to establish care. In the meantime, you may take Motrin/ Tylenol at home as needed for pain/discomfort. I recommend you take 600mg ibuprofen every 6 hours or Tylenol 650mg every 6 hours as needed for pain. If needed, you can alternate these medications so that you take one medication every 3 hours. For example, at noon take ibuprofen, then at 3pm take Tylenol, then at 6pm take ibuprofen. Return with new or worsening symptoms. In the case of an emergency call 911. Prescriptions: No Action (DME) Blood Pressure Cuff Misc See Rx Instructions .ROUTE .MEDSUPPLY Qty: 1 0RF Rx Instructions: As directed sennosides [Senna Lax] 8.6 mg tablet 8.6 mg PO BEDTIME PRN (Reason: constipation) Qty: 30 1RF Proair Digihaler 90 mcg/actuation aero powdr breath act w/sensor 2 inh inhalation Q4-6H PRN (Reason: shortness of breath or wheezing) Qty: 1 0RF albuterol sulfate 1.25 mg/3 mL solution for nebulization 1.25 mg inhalation Q4-6H PRN (Reason: bronchospasm) Qty: 90 0RF cefuroxime axetil 250 mg tablet 250 mg PO BID 7 Days Qty: 14 0RF magnesium oxide 400 mg (241.3 mg magnesium) tablet 400 mg PO BEDTIME 30 Days Qty: 30 6RF Rx Instructions: may hold for loose stools diphenhydramine HCl [Benadryl] 25 mg capsule 25 mg PO TID PRN (Reason: allergic reaction or migraine headache) 30 Days Qty: 30 1RF propranolol 10 mg tablet 15 mg PO BID 90 Days Qty: 270 0RF sertraline 50 mg tablet 75 mg PO DAILY 30 Days Qty: 45 2RF amlodipine 10 mg tablet 10 mg PO DAILY 90 Days Qty: 90 0RF Referrals: [facility] [Provider Group] - 5 days (breast pain) Jeffy Gutierrez MD [Primary Care Provider] - Interventions: ED Discharge Assessment Last Done: 12/10/24 12:22 Discharge Date/Time: 12/10/24 12:22 Print Language: Luxembourgish
--- NOTE | 2024-12-10 09:51 | ECG_ITS ---
Test Reason : l sided cp Blood Pressure : */* mmHG Vent. Rate : 69 BPM Atrial Rate : 69 BPM P-R Int : 164 ms QRS Dur : 108 ms QT Int : 380 ms P-R-T Axes : 60 25 21 degrees QTcB Int : 407 ms Normal sinus rhythm Minimal voltage criteria for LVH, may be normal variant ( R in aVL ) Borderline ECG When compared with ECG of 22-Nov-2024 11:55, No significant change was found Referred By: Yessica Fernandez Electronically Signed By: RINA BROWN
[2024-12-10 10:12] LABS: Troponin-I High Sensitivity < 2.7 ng/L (<3.5-17.0)
[2024-12-10] MEDS: Ketorolac Tromethamine 30 MG/ML VIAL IM (10:57)
[2024-12-10 12:22] VITALS: BP 133/86; PULSE 86; RESP 18; TEMP 36.4; O2SAT 97
== END 2024-12-10 12:22 | disposition home or self-care (01) ==
PROVIDERS: Physician Assistant Medical; Emergency Provider Emergency Medicine; PCP Internal Medicine
DX: N64.4 Mastodynia (principal); Z79.899 Other long term (current) drug therapy
CPT/HCPCS: 36415; 71046; 80053; 84484; 85025; 85652; 93005; 96372; 99284; J1885

== ENCOUNTER → 2024-12-10 09:41 | Outpatient (BNV) | payer OTHER, SELFPAY | PROVIDERS: Emergency Provider Emergency Medicine; PCP Internal Medicine; Visit Provider Radiology Diagnostic Radiology | DX: R07.89 Other chest pain (principal); N64.4 Mastodynia | CPT/HCPCS: 71046 ==

== ENCOUNTER → 2024-12-10 09:51 | Outpatient (BNV) | payer OTHER, SELFPAY | PROVIDERS: Emergency Provider Emergency Medicine; PCP Internal Medicine; Visit Provider Internal Medicine | DX: R07.9 Chest pain, unspecified (principal) | CPT/HCPCS: 93010 ==

== ENCOUNTER 2024-12-18 15:57 | Outpatient (REF) | payer OTHER, SELFPAY ==
--- NOTE | ~2024-12-18 | US_ITS ---
EXAMINATION: US THYROID CLINICAL INFORMATION: Thyrotoxicosis with diffuse goiter. No crisis. COMPARISON: None available. TECHNIQUE: Linear transducer grayscale and color Doppler examination with attention to the region of the thyroid. FINDINGS: SIZE: Measurements of the thyroid lobes and nodules are given in sagittal, anteroposterior and transverse dimensions respectively. Right Thyroid Lobe: 5.2 x 1.7 x 1.5 cm, volume 7.0 mL. Parenchyma: The gland echotexture is heterogeneous. Thyroid vascularity is normal. Left Thyroid Lobe: 5.1 x 1.4 x 2.1 cm, volume 8.0 mL. Parenchyma: The gland echotexture is heterogeneous. Thyroid vascularity is normal. Isthmus: 0.1 cm in maximum AP dimension. Estimated total number of nodules greater than or equal to 1 cm: 0. Fixture Repairer Fabricator nodules are described as follows: 1. Location: Right thyroid lobe upper segment. Size: 0.8 x 0.6 x 0.7 cm, volume 0.2 mL. Nodule characteristics: Composition: Solid (2). Echogenicity: Hypoechoic (2). Shape: Not taller than wide (0). Margins: Ill-defined (0). Echogenic Foci: Punctate echogenic foci (3). ACR TI-RADS total points: 7 ACR TI-RADS category: 5 US/US thyroid IMPRESSION: ACR TI RADS 5, right thyroid lobe upper segment. ACR TI-RADS RECOMMENDATION REFERENCE: Ultrasound-guided fine-needle aspiration, followup ultrasound, no further follow up. * TR1 (0 point) and TR2 (2 points): No FNA or follow up. * TR3 (3 points): FNA if more than or equal to 2.5 cm in maximum dimension, followup ultrasound in 1, 3 and 5 years if 1.5 to 2.4 cm in maximum dimension. * TR4 (4-6 points): FNA if more than or equal to 1.5 cm in maximum dimension, followup ultrasound in 1, 2, 3 and 5 years if 1 to 1.4 cm in maximum dimension. * TR5 (more than or equal to 7 points): FNA if more than or equal to 1 cm in maximum dimension, followup ultrasound every year for 5 years if 0.5 to 0.9 cm in maximum dimension. * TR3, TR4 or TR5 nodules that are below the size threshold for followup receive no follow up. Electronically signed by: Luis Grimaldo MD 12/19/2024 07:12 AM EDT RP
--- OUTSIDE RECORDS SUMMARY | 2024-12-18 17:41 | XMS_ITS | Clinical Summary ---
Author Organization 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
--- OUTSIDE RECORDS SUMMARY | 2024-12-18 17:41 | XMS_ITS | Referral Summary ---
Author Organization [facility] Address [address] [place] [address] Care Team Providers Care Marketing Development Specialist Name Role Phone Patient, Has No Pcp Or Ref Primary Care Provider Unavailable Encounters Date Type Department Care Team Description 11/17/2024 5:48 PM EDT - 11/18/2024 12:23 AM EDT Emergency [facility] Emergency Department [address] [place] [address] Rosette Franklin MD Seizure-like activity (Primary Dx) [...] Not on file Procedures * Due to [place] state law, this organization might not be [...] Last 3 Months Results * Due to [place] PT PAL law, this organization might not be sharing [...] obtain the completed interpretation. ? Workstation ID: [id number] Narrative 11/17/2024 11:12 PM EDT INDICATION: 29 years Female who presents with/for Fatigue and malaise TECHNIQUE: Single view of the chest COMPARISON: None FINDINGS: Lines/Tubes/Support: Telemetry leads. Mediastinum: Cardiomediastinal silhouette is without acute findings. Trachea appears midline. Lungs/Pleura: Symmetrically inflated without focal consolidation, significant pleural effusion, or sizable pneumothorax. Musculoskeletal: No displaced fractures. Abdomen: No acute findings. Resulting Agency Comment [id number] Procedure Note Marco A Gonzalez MD - [...] possible to obtain thecompleted interpretation. Workstation ID: [id number] Rosette Franklin MD IMG XR PROCEDURES Final Result * Repeat Troponin #1 (11/17/2024 10:10 PM EDT) Only the most recent of2 resultswithin the time period is included. Troponin T High Sensitivity <6 <=13 ng/L 11/17/2024 10:37 PM EDT [facility] Comment: Pp-Myklkvpm-O level of 52 ng/L or higher at [...] be evaluated in line with the 4th [place] Definition of AMI. Troponin baseline and serial [...] MD LAB BLOOD ORDERABLES Final Resu lt [facility] [address] [place] [address], [place] * (ABNORMAL) Microscopic Urinalysis Only (11/17/2024 8:50 PM EDT) WBC, Urine 15-20(A) 0-2, None Seen /HPF [facility] MANUAL 11/17/2024 9:55 PM EDT [facility] RBC, Urine Too Numerous To Count(A) 0-2, None Seen /HPF [facility] MANUAL 11/17/2024 9:55 PM EDT [facility] Bacteria, Urine 1+(A) None Seen /HPF [facility] MANUAL 11/17/2024 9:55 PM EDT [facility] Squamous Epithelial Cells, Urine Moderate /HPF [facility] MANUAL 11/17/2024 9:55 PM EDT [facility] Trichomonas, Urine Present(A) None Seen /HPF [facility] MANUAL 11/17/2024 9:55 PM EDT [facility] Urine Urine specimen collection, clean catch / Unknown Non-Blood Collection / Unknown 11/17/2024 8:50 PM EDT 11/17/2024 8:55 PM EDT us Rosette Franklin MD LAB URINE ORDERABLES Final Resu lt [facility] [address] [place] [address], [place] * (ABNORMAL) Urinalysis W/Reflex to Microscopic & Culture (11/17/2024 8:50 PM EDT) Color, Urine Yellow Yellow 11/17/2024 9:36 PM EDT [facility] Clarity, Urine Clear Clear 11/17/2024 9:36 PM EDT [facility] Specific [place], Urine 1.015 1.005 - 1.030 11/17/2024 9:36 PM EDT [facility] pH, Urine 7.0 5.0 - 8.0 11/17/2024 9:36 PM EDT [facility] Protein, Urine 30(A) Negative mg/dL 11/17/2024 9:36 PM EDT [facility] Glucose, Urine Negative Negative mg/dL 11/17/2024 9:36 PM EDT [facility] Ketones, Urine Negative Negative mg/dL 11/17/2024 9:36 PM EDT [facility] Bilirubin, Urine Negative Negative 11/17/2024 9:36 PM EDT [facility] Blood, Urine Large(A) Negative 11/17/2024 9:36 PM EDT [facility] Nitrite, Urine Negative Negative 11/17/2024 9:36 PM EDT [facility] Urobilinogen , Urine 0.2 0.2, 1.0 E.U./dL 11/17/2024 9:36 PM EDT [facility] Leukocyte Esterase, Urine Moderate(A) Negative 11/17/2024 9:36 PM EDT [facility] Urine Urine specimen collection, clean catch / Unknown Non-Blood Collection / Unknown 11/17/2024 8:50 PM EDT 11/17/2024 8:55 PM EDT Narrative [facility] - 11/17/2024 9:36 PM EDT Some urinalysis results will not meet the criteria for reflex urine culture although certain urine values may be abnormal. ??Additional testing can be ordered by the provider if clinically warranted. us Rosette Franklin MD LAB URINE ORDERABLES Final Resu lt [facility] [address] [place] [id number], * (ABNORMAL) Urine Culture, Routine (11/17/2024 8:50 PM EDT) Urine Culture Workup Less than 10,000 CFU/mL Streptococcus agalactiae(A) BIOMERIEU X VITEK2 COMPACT 12/10/2024 12:39 PM EDT [facility] Urine Culture Workup 10,000-25,000 CFU/mL BIOMERIEU X VITEK2 COMPACT 12/10/2024 12:39 PM EDT [facility] Comment:Mixed Gram positive organisms with no predominant organism present. Consistent with urogenital contamination after 24 hours. Urine Urine specimen collection, clean catch / Unknown Non-Blood Collection / Unknown 11/17/2024 8:50 PM EDT 11/17/2024 8:57 PM EDT Narrative Organism Antibiotic Method Susceptibility Streptococcus agalactiae Clindamycin [facility] 17 mm: Intermediate Comment:This is a co rrected result. Previous result was Intermediate (17) on 11/22/2024 at 0843 EDT Streptococcus agalactiae Penicillin BIOMERIEUX VITEK2 COMPACT <=0.12 ug/ml: Susceptible Streptococcus agalactiae Vancomycin BIOMERIEUX VITEK2 COMPACT <=0.5 ug/ml: Susceptible Comment: The previously reported component Erythromycin is no longer being reported. The previously reported component Levofloxacin is no longer being reported. The previously reported component Linezolid is no longer being reported. The previously reported component Moxifloxacin is no longer being reported. The previously reported component Quinupristin/Dalfopristin is no longer being reported. The previously reported component Tetracycline is no longer being reported. The previously reported component Tigecycline is no longer being reported. us Rosette Franklin MD LAB MICROBIOLOGY - [facility] Edited Result - Final Performing Organization Address City/State/[facility] Co de Phone Number [facility] [address] [place] [id number], [place] * CT Head WO Contrast (11/17/2024 [...] obtain the completed interpretation. ? Workstation ID: [id number] Up-to-date CT equipment and radiation dose reduction [...] osseous lesions or fractures. Resulting Agency Comment [id number] Procedure Note Charleen Zhang MD - 11/17/2024 [...] possible to obtain thecompleted interpretation. Workstation ID: [id number] Up-to-date CT equipment and radiation dose reduction techniques wereemployed. CTDIvol: 45.8 mGy. DLP: 834 mGy-cm. Rosette Franklin MD IM CT PROCEDURES Final Result * (ABNORMAL) CBC Auto Differential (11/17/2024 6:23 PM EDT) [facility] WBC 8.8 3.8 - 10.8 10*3/uL 11/17/2024 6:37 PM EDT [facility] RBC 4.68 3.80 - 5.10 10*6/uL 11/17/2024 6:37 PM EDT [facility] Hemoglobin 11.7 11.7 - 15.5 [...] - 7.80 10*3/uL 11/17/2024 6:37 PM EDT [facility] Immature Grans # 0.03 <=0.03 10*3/uL 11/17/2024 6:37 PM EDT [facility] Lymphocyte # 2.20 0.85 - 3.90 10*3/uL 11/17/2024 6:37 PM EDT [facility] Monocyte # 0.50 0.20 - 0.95 10*3/uL 11/17/2024 6:37 PM EDT [facility] Eosinophil # 0.20 0.02 - 0.50 10*3/uL 11/17/2024 6:37 PM EDT [facility] Basophil # 0.10 0.00 - 0.20 10*3/uL 11/17/2024 6:37 PM EDT [facility] nRBC % 0.0 /100 WBCs 11/17/2024 6:37 PM EDT [facility] nRBC # <0.01 <0.01 10*3/uL 11/17/2024 6:37 PM EDT [facility] Blood Structure of peripheral vein / Unknown Venipuncture / Unknown 11/17/2024 6:23 PM EDT 11/17/2024 6:34 PM EDT us Rosette Franklin MD LAB BLOOD ORDERABLES Final Resu lt [facility] [address] [place] [address], [place] * hCG, Qualitative, Serum (11/17/2024 6:23 PM EDT) HCG Qualitative, Serum Negative Negative [facility] 11/17/2024 6:59 PM EDT [facility] Comment: hCG may be negative in early . ??Suggest repeat testing in 2-4 days if clinically indicated. ??The results of this test should be interpreted with the patient's clinical presentation. Blood Structure of peripheral vein / Unknown Venipuncture / Unknown 11/17/2024 6:23 PM EDT 11/17/2024 6:34 PM EDT us Rosette Franklin MD LAB BLOOD ORDERABLES Final Resu lt [facility] [address] [place] [id number], [place] * Magnesium (11/17/2024 6:23 PM EDT) MG 2.0 1.6 - 2.4 mg/dL 11/17/2024 7:07 PM EDT [facility] Blood Structure of peripheral vein / Unknown Venipuncture / Unknown 11/17/2024 6:23 PM EDT 11/17/2024 6:34 PM EDT us Rosette Franklin MD LAB BLOOD ORDERABLES Final Resu lt [facility] [address] [place] [id number], [place] * BMP - Basic Metabolic Panel (11/17/2024 6:23 PM EDT) NA 137 135 - 145 mmol/L 11/17/2024 7:07 PM EDT [facility] K 3.9 3.5 - 5.3 mmol/L 11/17/2024 7:07 PM EDT [facility] Cl 101 98 - 107 mmol/L 11/17/2024 7:07 PM EDT [facility] CO2 23 22 - 32 mmol/L 11/17/2024 7:07 PM EDT [facility] BUN 17 7 - 23 mg/dL 11/17/2024 7:07 PM EDT [facility] Creatinine 0.76 0.50 - 1.20 mg/dL 11/17/2024 7:07 PM EDT [facility] Glucose 91 65 - 99 mg/dL 11/17/2024 7:07 PM EDT [facility] Calcium 9.1 8.6 - 10.5 mg/dL 11/17/2024 7:07 PM EDT [facility] Anion Gap 13 5 - 15 11/17/2024 7:07 PM EDT [facility] eGFR >90 >=60 mL/min/1. 73m2 11/17/2024 7:07 PM EDT [facility] Comment:The estimated glomer ular filtration [...] MD LAB BLOOD ORDERABLES Final Resu lt [facility] [address] [place] [address], * ECG 12 lead (11/17/2024 6:14 PM EDT) Ventricular Rate EKG 68 BPM MUSE EKG Atrial Rate 68 BPM MUSE EKG VT Interval 138 ms MUSE EKG QRS Interval 112 ms MUSE EKG QT Interval 400 ms MUSE EKG QTC Interval 425 ms MUSE EKG P [place] 36 degrees MUSE EKG R [place] 45 degrees MUSE EKG T Wave [place] 28 degrees MUSE EKG 11/17/2024 6:14 PM EDT 11/22/2024 11:04 AM EDT Impressions MUSE EKG - 11/22/2024 11:04 AM EDT Normal sinus rhythm Moderate voltage criteria for LVH, may be normal variant Borderline ECG No previous ECGs available Confirmed by Jerome Augustine ([id number]) on 11/22/2024 11:04:44 AM us Rosette Franklin MD ECG ORDERABLES Final Result MUSE EKG from Last [address] [facility] MEDICAID Care Teams Marketing Development Specialist Relationship Specialty Start Date End Date Patient, Has No Pcp Or Ref DO NOT EDIT THIS RECORD VIA PROVIDER ON THE FLY PCP - General Gas Station Supervisor 11/17/24
--- OUTSIDE RECORDS SUMMARY | 2024-12-18 17:41 | XMS_ITS | Clinical Summary ---
Author Organization [facility] Address [address] [place] [address] Care Team Providers Care Property Staff Accountant Name Role Phone Patient, Has No Pcp Or Ref Primary Care Provider Unavailable Allergies Active Allergy Reactions Criticality Noted Date Comments Escitalopram Oxalate Vomiting 11/17/2024 Lorazepam Hives 11/17/2024 Penicillins Hives 11/17/2024 Medications amLODIPine (NORVASC) 10 mg tablet Take 10 mg by mouth once a day. Active Encounters Date Type Department Care Team Description 11/17/2024 5:48 PM EDT - 11/18/2024 12:23 AM EDT Emergency [facility] Emergency Department [address] [place] [address] Rosette Franklin MD Seizure-like activity (Primary Dx) [...] Completed 06/06/2024, 06/04/2019 Procedures * Due to [place] state law, this organization might not be [...] Last 3 Months Results * Due to [place] state law, this organization might not be [...] obtain the completed interpretation. ? Workstation ID: [id number] Narrative 11/17/2024 11:12 PM EDT INDICATION: 29 years Female who presents with/for Fatigue and malaise TECHNIQUE: Single view of the chest COMPARISON: None FINDINGS: Lines/Tubes/Support: Telemetry leads. Mediastinum: Cardiomediastinal silhouette is without acute findings. Trachea appears midline. Lungs/Pleura: Symmetrically inflated without focal consolidation, significant pleural effusion, or sizable pneumothorax. Musculoskeletal: No displaced fractures. Abdomen: No acute findings. Resulting Agency Comment [id number] Procedure Note Marco A Gonzalez MD - [...] possible to obtain thecompleted interpretation. Workstation ID: [id number] Rosette Franklin MD IMG XR PROCEDURES Final Result * Repeat Troponin #1 (11/17/2024 10:10 PM EDT) Only the most recent of2 resultswithin the time period is included. Troponin T High Sensitivity <6 <=13 ng/L 11/17/2024 10:37 PM EDT [facility] Comment: Ov-Mgwqxwwk-D level of 52 ng/L or higher at [...] be evaluated in line with the 4th [place] [employer] Definition of AMI. Troponin baseline and serial [...] MD LAB BLOOD ORDERABLES Final Resu lt [facility] [address] [place] [address], [place] * (ABNORMAL) Microscopic Urinalysis Only (11/17/2024 8:50 PM EDT) WBC, Urine 15-20(A) 0-2, None Seen /HPF [facility] 11/17/2024 9:55 PM EDT [facility] RBC, Urine Too Numerous To Count(A) 0-2, None Seen /HPF [facility] 11/17/2024 9:55 PM EDT [facility] Bacteria, Urine 1+(A) None Seen /HPF [facility] MANUAL 11/17/2024 9:55 PM EDT [facility] Squamous Epithelial Cells, Urine Moderate /HPF [facility] MANUAL 11/17/2024 9:55 PM EDT [facility] Trichomonas, Urine Present(A) None Seen /HPF [facility] MANUAL 11/17/2024 9:55 PM EDT [facility] Urine Urine specimen collection, clean catch / Unknown Non-Blood Collection / Unknown 11/17/2024 8:50 PM EDT 11/17/2024 8:55 PM EDT us Rosette Franklin MD LAB URINE ORDERABLES Final Resu lt [facility] [address] [place] [address], [place] * (ABNORMAL) Urinalysis W/Reflex to Microscopic & Culture (11/17/2024 8:50 PM EDT) Color, Urine Yellow Yellow 11/17/2024 9:36 PM EDT [facility] Clarity, Urine Clear Clear 11/17/2024 9:36 PM EDT [facility] Specific [place], Urine 1.015 1.005 - 1.030 11/17/2024 9:36 PM EDT [facility] pH, Urine 7.0 5.0 - 8.0 11/17/2024 9:36 PM EDT [facility] Protein, Urine 30(A) Negative mg/dL 11/17/2024 9:36 PM EDT [facility] Glucose, Urine Negative Negative mg/dL 11/17/2024 9:36 PM EDT [facility] Ketones, Urine Negative Negative mg/dL 11/17/2024 9:36 PM EDT [facility] Bilirubin, Urine Negative Negative 11/17/2024 9:36 PM EDT [facility] Blood, Urine Large(A) Negative 11/17/2024 9:36 PM EDT [facility] Nitrite, Urine Negative Negative 11/17/2024 9:36 PM EDT [facility] Urobilinogen , Urine 0.2 0.2, 1.0 E.U./dL 11/17/2024 9:36 PM EDT [facility] Leukocyte Esterase, Urine Moderate(A) Negative 11/17/2024 9:36 PM EDT [facility] Urine Urine specimen collection, clean catch / Unknown Non-Blood Collection / Unknown 11/17/2024 8:50 PM EDT 11/17/2024 8:55 PM EDT [facility] - 11/17/2024 9:36 PM EDT Some urinalysis results will not meet the criteria for reflex urine culture although certain urine values may be abnormal. ??Additional testing can be ordered by the provider if clinically warranted. Rosette Franklin MD LAB URINE ORDERABLES Final Resu lt [facility] [address] [place] [address], [place] * (ABNORMAL) Urine Culture, Routine (11/17/2024 8:50 PM EDT) Urine Culture Workup Less than 10,000 CFU/mL Streptococcus agalactiae(A) BIOMERIEU X VITEK2 COMPACT 12/10/2024 12:39 PM EDT [facility] Urine Culture Workup 10,000-25,000 CFU/mL BIOMERIEU X VITEK2 COMPACT 12/10/2024 12:39 PM EDT [facility] Comment:Mixed Gram positive organisms with no predominant organism present. Consistent with urogenital contamination after 24 hours. Urine Urine specimen collection, clean catch / Unknown Non-Blood Collection / Unknown 11/17/2024 8:50 PM EDT 11/17/2024 8:57 PM EDT Narrative Organism Antibiotic Method Susceptibility Streptococcus agalactiae Clindamycin [facility] 17 mm: Intermediate Comment:This is a [...] component Tigecycline is no longer being reported. Rosette Franklin MD LAB MICROBIOLOGY - [facility] Edited Result - Final [facility] [address] [place] [address], [place] * CT Head WO Contrast (11/17/2024 [...] obtain the completed interpretation. ? Workstation ID: [id number] Up-to-date CT equipment and radiation dose reduction [...] osseous lesions or fractures. Resulting Agency Comment [id number] Procedure Note Charleen Zhang MD - 11/17/2024 [...] possible to obtain thecompleted interpretation. Workstation ID: [id number] Up-to-date CT equipment and radiation dose reduction [...] - 0.20 10*3/uL 11/17/2024 6:37 PM EDT [facility] nRBC % 0.0 /100 WBCs 11/17/2024 6:37 PM EDT [facility] nRBC # <0.01 <0.01 10*3/uL 11/17/2024 6:37 PM EDT [facility] Blood Structure of peripheral vein / Unknown Venipuncture / Unknown 11/17/2024 6:23 PM EDT 11/17/2024 6:34 PM EDT Rosette Franklin MD LAB BLOOD ORDERABLES Final Resu lt Performing Organization Address [facility]/ZIP Co de Phone Number [address] [address], [place] * hCG, Qualitative, Serum (11/17/2024 6:23 PM EDT) HCG Qualitative, Serum Negative Negative [facility] 11/17/2024 6:59 PM EDT [facility] Comment: hCG may be negative in early . ??Suggest repeat testing in 2-4 days if clinically indicated. ??The results of this test should be interpreted with the patient's clinical presentation. Blood Structure of peripheral vein / Unknown Venipuncture / Unknown 11/17/2024 6:23 PM EDT 11/17/2024 6:34 PM EDT Rosette Franklin MD LAB BLOOD ORDERABLES Final Resu lt Performing Organization Address City/[facility]/ZIP Co de Phone Number [facility] [address] [place] [id number], [place] * Magnesium (11/17/2024 6:23 PM EDT) MG 2.0 1.6 - 2.4 mg/dL 11/17/2024 7:07 PM EDT [facility] Blood Structure of peripheral vein / Unknown Venipuncture / Unknown 11/17/2024 6:23 PM EDT 11/17/2024 6:34 PM EDT us Rosette Franklin MD LAB BLOOD ORDERABLES Final Resu lt [facility] [address] [place] [address], [place] * BMP - Basic Metabolic Panel (11/17/2024 6:23 PM EDT) NA 137 135 - 145 mmol/L 11/17/2024 7:07 PM EDT [facility] K 3.9 3.5 - 5.3 mmol/L 11/17/2024 7:07 PM EDT [facility] Cl 101 98 - 107 mmol/L 11/17/2024 7:07 PM EDT [facility] CO2 23 22 - 32 mmol/L 11/17/2024 7:07 PM EDT [facility] BUN 17 7 - 23 mg/dL 11/17/2024 7:07 PM EDT [facility] Creatinine 0.76 0.50 - 1.20 mg/dL 11/17/2024 7:07 PM EDT [facility] Glucose 91 65 - 99 mg/dL 11/17/2024 7:07 PM EDT [facility] Calcium 9.1 8.6 - 10.5 mg/dL 11/17/2024 7:07 PM EDT [facility] Anion Gap 13 5 - 15 11/17/2024 7:07 PM EDT [facility] eGFR >90 >=60 mL/min/1. 73m2 11/17/2024 7:07 PM EDT [facility] Comment:The estimated glomer ular [...] MD LAB BLOOD ORDERABLES Final Resu lt [facility] [address] [place] [address], * ECG 12 lead (11/17/2024 6:14 PM EDT) Ventricular Rate EKG 68 BPM MUSE EKG Atrial Rate 68 BPM MUSE EKG IN Interval 138 ms MUSE EKG QRS Interval 112 ms MUSE EKG QT Interval 400 ms MUSE EKG QTC Interval 425 ms MUSE EKG P [place] 36 degrees MUSE EKG R [place] 45 degrees MUSE EKG T Wave [place] 28 degrees MUSE EKG 11/17/2024 6:14 PM [...] 3 Months Insurance [employer] Care Teams Property Staff Accountant Relationship Specialty Start Date End Date Patient, Has No Pcp Or Ref DO NOT EDIT THIS RECORD VIA PROVIDER ON THE FLY 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
== END 2024-12-18 15:58 | disposition home or self-care (01) ==
LOC: HO.US 15:57
PROVIDERS: PCP Internal Medicine; Visit Provider Student in an Organized Health Care Education/Training Program
DX: E05.00 Thyrotoxicosis with diffuse goiter without thyrotoxic crisis or storm (principal)
CPT/HCPCS: 76536

== ENCOUNTER → 2024-12-18 15:58 | Outpatient (BNV) | payer OTHER, SELFPAY | PROVIDERS: PCP Internal Medicine; Visit Provider Radiology Diagnostic Radiology | DX: E05.00 Thyrotoxicosis with diffuse goiter without thyrotoxic crisis or storm (principal) | CPT/HCPCS: 76536 ==

== ENCOUNTER 2024-12-27 07:51 | Emergency (ER) | payer OTHER, SELFPAY ==
--- NOTE | ~2024-12-27 | XR_ITS ---
EXAMINATION: XR HUMERUS, LEFT CLINICAL INFORMATION: fall COMPARISON: None available. TECHNIQUE: AP and lateral views of the left humerus. FINDINGS: No acute cortical disruption. No subcutaneous emphysema. No metallic or radiopaque foreign body. No lytic or blastic lesions. XR/XR humerus LT IMPRESSION: No acute fracture. Electronically signed by: Luis Grimaldo MD 12/27/2024 08:33 AM EDT
--- NOTE | ~2024-12-27 | XR_ITS ---
EXAMINATION: XR SHOULDER, LEFT CLINICAL INFORMATION: fall COMPARISON: None available. TECHNIQUE: AP external rotation, Grashey, scapular Y, and axillary views of the left shoulder. FINDINGS: No acute cortical disruption or malalignment. No lytic or blastic lesions. No metallic or radiopaque foreign body. XR/XR shoulder LT min 2V IMPRESSION: No acute fracture or dislocation, left shoulder. Electronically signed by: Luis Grimaldo MD 12/27/2024 08:30 AM EDT
[2024-12-27 07:57] VITALS: BP 146/88; PULSE 83; RESP 16; TEMP 36.8; O2SAT 99; BMI 31.2
--- NOTE | 2024-12-27 08:08 | ECG_ITS ---
Test Reason : arm pain Blood Pressure : */* mmHG Vent. Rate : 70 BPM Atrial Rate : 70 BPM P-R Int : 158 ms QRS Dur : 110 ms QT Int : 378 ms P-R-T Axes : 66 39 28 degrees QTcB Int : 408 ms Normal sinus rhythm Possible Left atrial enlargement Left ventricular hypertrophy ( Sokolow-New , Olegario product ) Abnormal ECG When compared with ECG of 10-Dec-2024 09:56, No significant change was found Referred By: Generic ED Physician Electronically Signed By: TERE MELLO MD
[2024-12-27] MEDS: Ketorolac Tromethamine 15 MG/ML VIAL IM (09:57)
--- NOTE | 2024-12-27 10:08 | ED.EXTPRO ---
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 She reports that she was walking down the stairs yesterday carrying some heavy boxes in front of her, on the last step her sock got caught, ultimately she tripped, landing into the wall on her left arm. She denies any head strike or loss of consciousness. She noticed some pain in the left shoulder radiating into the neck that was mild. She reports upon awakening today the pain was much more severe which prompted her to seek evaluation in the emergency department. The pain is described as a burning sensation. She denies any numbness or tingling to the extremity. Initial nursing triage states that she has been experiencing constant dizziness for the past 2 months, she has had prior outpatient evaluation for this as well as evaluation in the emergency department, she states that during the time of the fall she actually was not feeling dizzy the fall was strictly mechanical in nature. Denies any associated chest pain, shortness of breath, difficulty breathing, current dizziness, lightheadedness, headache, vision changes, neck pain, neck stiffness Related Data Previous Rx's ?Medication ?Instructions ?Recorded miscellaneous medical supply #1 ea 03/30/23 (Blood Pressure Cuff) magnesium oxide 400 mg (241.3 mg 400 mg PO BEDTIME 30 days #30 tabs 01/31/24 magnesium) tablet sennosides 8.6 mg tablet (Senna 8.6 mg PO BEDTIME PRN constipation 02/01/24 Lax) #30 tabs diphenhydramine HCl 25 mg capsule 25 mg PO TID PRN allergic reaction 05/07/24 (Benadryl) or migraine headache 30 days #30 caps amlodipine 10 mg tablet 10 mg PO DAILY 90 days #90 tabs 10/14/24 propranolol 10 mg tablet 15 mg (1.5 x 10 mg) PO BID 90 days 10/14/24 #270 tabs sertraline 50 mg tablet 75 mg (1.5 x 50 mg) PO DAILY 30 02/03/25 days #45 tabs albuterol sulfate 1.25 mg/3 mL 1.25 mg (3 mL) inhalation Q4-6H 10/20/24 solution for nebulization PRN bronchospasm #90 mL albuterol sulfate 90 mcg/actuation 2 inh inhalation Q4-6H PRN 10/20/24 breath activated powder shortness of breath or wheezing #1 inhaler,sensor (Proair Digihaler) ea cefuroxime axetil 250 mg tablet 250 mg PO BID 7 days #14 tabs 11/22/24 methocarbamol 750 mg tablet 750 mg PO BEDTIME #14 tabs 12/27/24 Allergies Allergy/AdvReac Type Severity Reaction Status Date / Time morphine Allergy Severe Vomiting Verified 12/27/24 08:03 chlorthalidone Allergy Intermediate Chest Pain Verified 12/27/24 08:03 glucagon Allergy Intermediate Unknown Verified 12/27/24 08:03 guaifenesin [From Mucinex] Allergy Intermediate Unknown Verified 12/27/24 08:03 latex Allergy Intermediate Rash Verified 12/27/24 08:03 amoxicillin Allergy Mild Rash Verified 12/27/24 08:03 clavulanic acid Allergy Unknown Unknown Verified 12/27/24 08:03 [From Augmentin] cyclobenzaprine Allergy Palpitation Verified 12/27/24 08:03 [From Flexeril] s escitalopram Allergy Palpitation Verified 12/27/24 08:03 s hydralazine Allergy Nausea and Verified 12/27/24 08:03 Vomiting lorazepam [From Ativan] Allergy Palpitation Verified 12/27/24 08:03 s nifedipine Allergy Intermediate Unknown Uncoded 12/27/24 08:03 Review of Systems Review of Systems: Yes all other systems are reviewed and are negative [facility], [facility] Past Medical History Attestation statement: The following information was validated with the patient. Source: old records reviewed Medical History Graves disease Graves' eye disease Pituitary microadenoma Psychogenic nonepileptic seizure Hyperthyroidism Essential hypertension Breast pain, left Overweight (BMI 25.0-29.9) Heavy menses Chronic constipation GERD without esophagitis Anemia HTN (hypertension) Anxiety Surgical History History of tubal ligation H/O tooth extraction (~12/10/22) H/O: Family History Family History Paternal Aunt Breast cancer, Onset Age: 35 Maternal Aunt Breast cancer, Onset Age: 40 Other Diabetes High cholesterol Hypertension Social History Social History Housing: House Alcohol intake: never Patient Tobacco Use Status: Never used Tobacco Tobacco use type: Cigarette e-Cigarette/Vaping Use: Never Used Second Hand Smoke Exposure: No Advance Directives: No Advance Directives Information Provided: Yes service: No Current occupational status: unemployed Cognitive needs: No Hearing needs: No Vision needs: Yes (Glasses) Physical Exam Vital Signs: Vital Signs: Last Vital Signs Temp 97.9 F 12/27/24 12:46 Pulse 75 12/27/24 12:46 Resp 14 12/27/24 12:46 BP 173/105 H 12/27/24 12:46 Pulse Ox 99 12/27/24 12:46 O2 Del Method Room Air 12/27/24 12:46 BMI result Body Mass Index 31.2 Appearance: Alert.?Oriented to person, place and time. No acute distress.?Normal affect. Eyes: Pupils equal, round and reactive to light.? ENT: Pharynx normal.?? Neck: Normal inspection.? Neck supple.? Full range of motion. No rigidity. No midline cervical spine tenderness step-offs, deformities. ? CVS: Heart sounds normal. Normal heart rate and rhythm.? Pulses normal.?? Respiratory: No respiratory distress.? Lung sounds clear to auscultation bilaterally?? Skin: Skin warm and dry.? Normal skin color.? Extremities: No lower extremity edema. Decreased AROM to the left shoulder with overhead extension, 2+ radial pulse. Neuro: Moves all extremities spontaneously. Sensation intact bilaterally. No focal neuro deficits. Ambulates with normal steady gait. Medications Administered Discontinued Medications Generic Name Dose Route Start Last Admin Trade Name Freq PRN Reason Stop Dose Admin Ketorolac Tromethamine 15 mg 12/27/24 09:40 12/27/24 09:57 Ketorolac Tromethamine 15 Mg/Ml Vial IM 12/27/24 09:41 15 mg ONCE ONE Administration Medical Decision Making Medical Decision Making MDM Narrative: Patient is a 29-year-old female with past medical history of anxiety, anemia, hypertension, hypothyroidism, seizures, Graves disease, pituitary microadenoma, psychogenic nonepileptic seizures, GERD who presents emergency department for evaluation of traumatic left shoulder pain as per HPI. Overall she is well-appearing, nontoxic, afebrile. There is no erythema or warmth to the left shoulder to suggest a septic joint. Extremities neurovascularly intact distally. There was no apparent deformity on evaluation. XR of the left shoulder and humerus was obtained prior to my assumption of care and is without acute fracture dislocation. I suspect at this time symptoms are secondary to sprain/musculoskeletal etiology given the injury yesterday. She has palpable tenderness along the left trapezius muscle. Discussed with patient, will trial NSAID; Toradol for analgesia at this time, would defer muscle relaxant as she will need to get herself home from the emergency department today. I have lower suspicion that this is acute cardiac etiology, however EKG and serum labs including troponin were ordered prior to my assumption of care; EKG reveals a normal sinus rhythm with LVH, ventricular rate of 70, QTC 408, no acute changes from prior. CBC is without leukocytosis, has a mild anemia that does not meet transfusion criteria, no thrombocytopenia. No electrolyte derangement. No KAYODE. High sensitive troponin below detectable limits. At this time feel that he is stable for discharge home, outpatient follow-up with PCP and worrisome signs and symptoms that would warrant re-evaluation in the emergency department. Differential Diagnosis Differential Diagnoses: The differential diagnosis associated with the presentation includes (See narrative above) Admission/Observation Consideration of admission/observation: Escalation of care including admission/observation considered Lab Data MDM Lab Attestation statement: I reviewed the patient's lab results. 12/27/24 11:25 12/27/24 11:25 Labs: Lab Results 12/27/24 Range/Units 11:25 WBC 7.9 (4.8-10.8) X10*3/uL RBC 4.54 (4.20-5.50) X10*6/uL Hgb 11.0 L (12.0-16.0) g/dl Hct 34.5 L (37.0-47.0) % MCV 76.0 L (80.0-98.0) fL MCH 24.2 L (27.0-33.0) pg MCHC 31.9 (31.0-35.0) g/dl RDW 14.1 (11.0-16.0) % Plt Count 286 (160-400) X10*3/uL MPV 11.2 (9.4-12.3) fL Immature Gran % (Auto) 0.5 H (0.0-0.4) % Neut % (Auto) 64.5 (45-73) % Lymph % (Auto) 25.5 (20-40) % Mcpherson % (Auto) 7.1 (2-11) % Eos % (Auto) 2.0 (0-4) % Baso % (Auto) 0.4 (0-2) % Lymph # (Auto) 2.0 (1.2-4.9) X10*3/uL Mcpherson # (Auto) 0.6 (0.1-1.2) X10*3/uL Eos # (Auto) 0.2 (0.0-0.4) X10*3/uL Baso # (Auto) 0.0 (0.0-0.2) X10*3/uL Abs Immat Gran (auto) 0.04 H (0.00-0.03) X10*3/uL Absolute Neuts (auto) 5.1 (2.0-8.3) x10*3/uL Absolute Nucleated RBC 0.000 (0.0-0.012) X10*3/uL Nucleated RBC % (auto) 0.0 (0.0-0.2) /100WBC Sodium 138 (135-145) mmol/L Potassium 4.5 (3.3-5.1) mmol/L Chloride 105 (96-108) mmol/L Carbon Dioxide 26 (22-29) mmol/L Anion Gap 12 (12-20) BUN 8 L (9-16) mg/dL Creatinine 0.64 (0.5-1.4) mg/dL Estim Creat Clear Calc 114.2 Estimated GFR > 60 Random Glucose 100 (60-115) mg/dL Calcium 9.6 (8.4-10.2) mg/dL Total Bilirubin 0.3 (0.0-1.0) mg/dL AST 21 (5-31) U/L ALT 22 (0-31) U/L Troponin I High Sens < 2.7 (<3.5-17.0) ng/L Total Protein 7.6 (6.5-8.0) g/dL Albumin 4.2 (3.5-5.0) g/dL Independent Interpretation I performed an independent interpretation of an: EKG (See narrative above) and Plain X-Ray (See narrative above) Radiology Impression Discussion of test interpretation with radiology: I have reviewed the radiologist's reading. Radiologist Impression: XR/XR humerus LT IMPRESSION: No acute fracture. XR/XR shoulder LT min 2V IMPRESSION: No acute fracture or dislocation, left shoulder. External Record Review External record reviewed: Outpatient record Chronic Conditions Patient?s care impacted by: Other (See narrative above) Discharge Plan Discharge Clinical Impression: Shoulder pain, left Patient Disposition: Home, Self-Care Instructions: R.I.C.E. Treatment (ED), Shoulder Pain (ED) Additional Instructions: as discussed, x-rays today do not show any fracture dislocation. Your blood work was very reassuring. EKG does not show abnormal findings of the heart to suggest a cause for the pain in your shoulder. I suspect that this is due to your fall yesterday. Be sure to rest over the next few days, apply ice to area of pain for 10-15 minutes 4-6 times daily. You can take ibuprofen 200 mg, 3 tablets (600mg) every 6-8 hours as needed for pain, in addition to Tylenol 500 mg, 2 tablets (1,000mg) every 4-6 hours as needed for pain, but not to exceed 3 doses daily (3,000mg).? For pain unrelieved by either the above, I have sent a prescription for methocarbamol to your pharmacy, this medication might make her drowsy. You should not drive, drink alcohol, work while taking this medication. Please contact your primary care provider to arrange for a follow-up visit particularly if you continue to have pain over the next week. They may consider alternative treatment, radiographic imaging, and/or physical therapy. Prescriptions: New methocarbamol 750 mg tablet 750 mg PO BEDTIME Qty: 14 0RF No Action (DME) Blood Pressure Cuff Misc See Rx Instructions .ROUTE .MEDSUPPLY Qty: 1 0RF Rx Instructions: As directed sennosides [Senna Lax] 8.6 mg tablet 8.6 mg PO BEDTIME PRN (Reason: constipation) Qty: 30 1RF Proair Digihaler 90 mcg/actuation aero powdr breath act w/sensor 2 inh inhalation Q4-6H PRN (Reason: shortness of breath or wheezing) Qty: 1 0RF albuterol sulfate 1.25 mg/3 mL solution for nebulization 1.25 mg inhalation Q4-6H PRN (Reason: bronchospasm) Qty: 90 0RF cefuroxime axetil 250 mg tablet 250 mg PO BID 7 Days Qty: 14 0RF magnesium oxide 400 mg (241.3 mg magnesium) tablet 400 mg PO BEDTIME 30 Days Qty: 30 6RF Rx Instructions: may hold for loose stools diphenhydramine HCl [Benadryl] 25 mg capsule 25 mg PO TID PRN (Reason: allergic reaction or migraine headache) 30 Days Qty: 30 1RF propranolol 10 mg tablet 15 mg PO BID 90 Days Qty: 270 0RF sertraline 50 mg tablet 75 mg PO DAILY 30 Days Qty: 45 2RF amlodipine 10 mg tablet 10 mg PO DAILY 90 Days Qty: 90 0RF Referrals: Jeffy Gutierrez MD [Primary Care Provider] - Print Language: Cypriot
[2024-12-27 11:33] LABS: MANUAL DIFF FLAG NO
[2024-12-27 11:35] LABS: Basophils Percent Auto 0.4 % (0-2); Eosinophils Absolute Auto 0.2 X10*3/uL (0.0-0.4); Hematocrit 34.5 % (37.0-47.0); Imm Gran Abs Auto 0.04 X10*3/uL (0.00-0.03); Imm Gran Pct Auto 0.5 % (0.0-0.4); Lymphocytes Percent Auto 25.5 % (20-40); Mean Corpuscular HGB Conc 31.9 g/dl (31.0-35.0); Mean Corpuscular Hemoglobin 24.2 pg (27.0-33.0); Mean Platelet Volume 11.2 fL (9.4-12.3); Monocytes Absolute Auto 0.6 X10*3/uL (0.1-1.2); Monocytes Percent Auto 7.1 % (2-11); Neutrophils Absolute Auto 5.1 x10*3/uL (2.0-8.3); Neutrophils Percent Auto 64.5 % (45-73); Platelet Count 286 X10*3/uL (160-400); Red Blood Count 4.54 X10*6/uL (4.20-5.50); Red Cell Distribution Width 14.1 % (11.0-16.0); White Blood Count 7.9 X10*3/uL (4.8-10.8)
[2024-12-27 12:02] LABS: Troponin-I High Sensitivity < 2.7 ng/L (<3.5-17.0)
[2024-12-27 12:04] LABS: Alanine Aminotransferase 22 U/L (0-31); Albumin Level 4.2 g/dL (3.5-5.0); Anion Gap 12 (12-20); Aspartate Amino Transferase 21 U/L (5-31); Bilirubin Total 0.3 mg/dL (0.0-1.0); Blood Urea Nitrogen 8 mg/dL (9-16); Calcium 9.6 mg/dL (8.4-10.2); Carbon Dioxide 26 mmol/L (22-29); Chloride 105 mmol/L (96-108); Creatinine Clr Calc Pharmacy 114.2; Estimated Glomerular Filt Rate > 60; Glucose Random 100 mg/dL (60-115); Potassium 4.5 mmol/L (3.3-5.1); Sodium 138 mmol/L (135-145); Total Protein 7.6 g/dL (6.5-8.0)
[2024-12-27 12:46] VITALS: BP 173/105; PULSE 75; RESP 14; TEMP 36.6; O2SAT 99
[2024-12-27 13:49] VITALS: BP 164/94; PULSE 89; RESP 16; TEMP 36.2; O2SAT 100
[2024-12-27 18:42] LABS: Alkaline Phosphatase 78 U/L (39-117)
== END 2024-12-27 13:50 | disposition home or self-care (01) ==
PROVIDERS: Nurse Practitioner Family; Emergency Provider Emergency Medicine Emergency Medical Services; PCP Internal Medicine
DX: M25.512 Pain in left shoulder (principal); R94.31 Abnormal electrocardiogram [ECG] [EKG]; Z79.899 Other long term (current) drug therapy
CPT/HCPCS: 36415; 73030; 73060; 80053; 84484; 85025; 93005; 96372; 99283; 99284; J1885

== ENCOUNTER → 2024-12-27 08:08 | Outpatient (BNV) | payer OTHER, SELFPAY | PROVIDERS: PCP Internal Medicine; Visit Provider Internal Medicine Cardiovascular Disease | DX: I51.7 Cardiomegaly (principal) | CPT/HCPCS: 93010 ==

== ENCOUNTER → 2024-12-27 08:23 | Outpatient (BNV) | payer OTHER, SELFPAY | PROVIDERS: PCP Internal Medicine; Visit Provider Radiology Diagnostic Radiology | DX: M25.512 Pain in left shoulder (principal); M79.622 Pain in left upper arm | CPT/HCPCS: 73030; 73060 ==

== ENCOUNTER 2024-12-31 16:28 | Outpatient (AMB) | payer OTHER, SELFPAY ==
--- NOTE | 2024-12-31 16:39 | A.OFFPC_ITS ---
Vital Signs 12/31/24 16:45 Height 5 ft Weight 161 lb 6 oz BMI 31.5 BP 128/84 Blood Pressure Location Lt brachial Position Sitting Pulse 91 Pulse Source Pulse Oximeter Temp 97.7 F Temp Source Temporal Artery Scan Pulse Oximetry (%) 100 Oxygen Delivery Method Room Air Intake Visit Reasons: dizziness;vertigo Emergency Room Registered Nurse Required: Yes Emergency Room Registered Nurse Language: Director Of Hotel Operations Name: Used tablet- Accompanied by: Self / Same As Patient Allergies morphine Allergy (Severe, Verified 12/31/24 16:47) Vomiting chlorthalidone Allergy (Intermediate, Verified 12/31/24 16:47) Chest Pain glucagon Allergy (Intermediate, Verified 12/31/24 16:47) Unknown guaifenesin [From Mucinex] Allergy (Intermediate, Verified 12/31/24 16:47) Unknown latex Allergy (Intermediate, Verified 12/31/24 16:47) Rash amoxicillin Allergy (Mild, Verified 12/31/24 16:47) Rash clavulanic acid [From Augmentin] Allergy (Unknown, Verified 12/31/24 16:47) Unknown cyclobenzaprine [From Flexeril] Allergy (Verified 12/31/24 16:47) Palpitations escitalopram Allergy (Verified 12/31/24 16:47) Palpitations hydralazine Allergy (Verified 12/31/24 16:47) Nausea and Vomiting lorazepam [From Ativan] Allergy (Verified 12/31/24 16:47) Palpitations nifedipine Allergy (Intermediate, Uncoded 12/31/24 16:47) Unknown Tobacco use date assessed: 11/22/24 Dental Screening Dental Screen Date: 10/14/24 HPI dizziness;vertigo HPI Details The patient is 29 year old [place] female presenting with ongoing concerns of vertigo and dizziness. Emergency Room Registered Nurse services used via IPAD. The patient reports that her BP at home 154/139; BP 128/84 in office. Discussed with that her blood pressure seems might need to be changed given the discrepancy between the readings. In addition, the systolic and diastolic are almost similar. Explained to the patient the process in checking her blood pressure correctly. The patient reports that she has been getting extremely hot at night, which the patient had similar complaints and her thyroid function was assessed and shown to be normal. The patient was also referred to Endocrine, with whom she has an upcoming appt. Patient reports that she has to change her OBGYN due to insurance coverage. Patient reports that she has left ear and in her left ear compared to her right. Reports that isn't painful history as an annoying feeling almost like you in crickets in her ears. [facility] Medical History Graves disease Graves' eye disease Pituitary microadenoma Psychogenic nonepileptic seizure Hyperthyroidism Essential hypertension Breast pain, left Overweight (BMI 25.0-29.9) Heavy menses Chronic constipation GERD without esophagitis Anemia HTN (hypertension) Anxiety Surgical History History of tubal ligation H/O tooth extraction (~12/10/22) H/O: Family History Paternal Aunt Breast cancer, Onset Age: 35 Maternal Aunt Breast cancer, Onset Age: 40 Other Diabetes High cholesterol Hypertension Social History Housing: House Alcohol intake: never Patient Tobacco Use Status: Never used Tobacco Tobacco use type: Cigarette e-Cigarette/Vaping Use: Never Used Second Hand Smoke Exposure: No service: No Current occupational status: unemployed Cognitive needs: No Hearing needs: No Vision needs: Yes (Glasses) Questionnaire Thrive Questionnaire Date Thrive assessed: 10/03/24 YULIYA-7 AMB Questionnaire YULIYA-7 Date YULIYA - 7 assessed: 10/03/24 Source: Developed by Drs. Fabio Johnson, Trinity Anand, Neymar Peterson and colleagues, with an educational sherley from [employer]. Review of Systems Const Reports headache(s) (Intermittent) Eyes Denies loss of vision ENT Reports vertigo, Reports dizziness (Intermittently), Denies otalgia, Reports headache(s) (Intermittent), Reports hearing loss (Decreased hearing in left ear compared to right), Reports nasal congestion, Reports tinnitus (Described as crickets in her ears) and Denies sore throat Card Denies chest pain, Reports diaphoresis (Nighttime), Denies leg edema and Denies lightheadedness Resp Denies cough, Denies hemoptysis and Denies wheezing GI Denies abdominal pain, Denies melena, Denies constipation, Denies diarrhea and Denies vomiting Denies urinary frequency, Denies dysuria and Denies urinary urgency Musc Denies arthralgias, Denies joint swelling, Denies numbness and Denies tingling Neuro Denies Abnormal speech present, Denies behavioral changes, Reports vertigo, Reports dizziness (Intermittently), Reports headache(s) (Intermittent), Denies loss of vision, Denies memory loss, Denies numbness and Denies tingling Psych Denies anxiety, Denies behavioral changes, Denies depression, Denies memory loss and Denies panic attacks Vinayak/Lymph Denies easy bleeding and Denies easy bruising Aller/Immun Denies wheezing Physical exam (Primary Care) Vital Signs: Last Vital Signs Temp 97.7 F 12/31/24 16:45 Pulse 91 12/31/24 16:45 BP 128/84 12/31/24 16:45 Pulse Ox 100 12/31/24 16:45 Oxygen Delivery Method Room Air 12/31/24 16:45 BMI result Body Mass Index 31.5 Tobacco/Smoking Status: Tobacco use Status Tobacco use date assessed 11/22/24 12/31/24 16:41 Patient Tobacco Use Status Never used Tobacco 12/31/24 16:41 Tobacco use type Cigarette 12/31/24 16:41 e-Cigarette/Vaping Use Never Used 12/31/24 16:41 Thrive Assessment: Date of Thrive Assessment Date Thrive assessed 10/03/24 12/31/24 16:41 Const General: healthy appearing, no acute distress, alert and awake Nutritional Appearance: well nourished Orientation/consciousness: oriented to person, oriented to place and oriented to time [facility] Ears: Abnormal EAC present cerumen impaction bilateral (Greater in left); no EA tenderness General nose exam: Abnormal mucous membranes and turbinates present erythematous and Nasal discharge present clear on the left Face and sinus: No sinus tenderness Eyes Conjunctivae: conjunctivae normal Sclerae: sclerae normal Pupils: Equal, round and reactive pupils present Neck Neck: Yes no lymphadenopathy and Yes no JVD Thyroid: Thyroid normal Carotids: no bruits Resp Effort & Inspection: normal respiratory effort and not tachypneic Auscultation: no crackles, no rales, no rhonchi and no wheezes Cardio Rate: regular rate Rhythm: regular rhythm Heart sounds: no murmurs and normal S1 and S2 GI Palpation (GI): Soft to palpation, nontender, no hepatomegaly and no splenomegaly Auscultation: normal bowel sounds Skin General skin exam: no rashes or lesions noted and dry skin Neuro General: oriented to person, oriented to place and oriented to time Cranial nerves: Yes Equal, round and reactive pupils present Speech: No Abnormal speech present Gait exam (Neuro): Normal gait present Motor exam (neuro): no tremor noted Extrem Right upper extremity: full ROM Left upper extremity: full ROM Right lower extremity: full ROM; no edema Left lower extremity: full ROM; no edema Psych Mental Status: mental status grossly normal Speech and movement: Normal speech and movement present Affect: normal affect Attitude: cooperative Thought process: Normal thought process present Coding Level of Care Code Est Pt Level 4 (08873) Diagnoses Dizziness R42 Vertigo R42 Nasal congestion R09.81 Graves disease E05.00 Migraine with aura and without status migrainosus, not intractable G43.109 Status migrainosus presence: without status migrainosus Intractability: not intractable Psychogenic nonepileptic seizure F44.5 Primary hypertension I10 Hypertension type: unspecified Time Spent (min) 39 Assessment & Plan Assessment & Plan (1) Dizziness: Code(s): R42 - Dizziness and giddiness Category: Medical (2) Vertigo: Code(s): R42 - Dizziness and giddiness Category: Medical (3) Nasal congestion: Code(s): R09.81 - Nasal congestion Category: Medical (4) Graves disease: Code(s): E05.00 - Thyrotoxicosis with diffuse goiter without thyrotoxic crisis or storm Category: Medical (5) Migraine with aura: Code(s): G43.109 - Migraine with aura, not intractable, without status migrainosus Category: Medical Qualifiers: Status migrainosus presence: without status migrainosus Intractability: not intractable Qualified Code(s): G43.109 - Migraine with aura, not intractable, without status migrainosus (6) 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 - Conversion disorder with seizures or convulsions Category: Medical (7) HTN (hypertension): Code(s): I10 - Essential (primary) hypertension Category: Medical Qualifiers: Hypertension type: unspecified Qualified Code(s): I10 - Essential (primary) hypertension Plan Explained the patient about the suspicion of her allergies causing to drainage into her ears, which might be leading to her dizziness/vertigo sensations. Plans for the patient to purchase a Debrox ear drops to assist in cleaning her ears. The patient will also purchase an antihistamine OTC. Flonase nose spray ordered for the patient to use for a nasal congestion. The patient was educated on how to take her blood pressure the proper way and was instructed to get a new blood pressure machine. The patient was instructed to continue her current treatment of amlodipine 10 mg daily, propranolol 15 mg b.i.d., which was ordered for the patient anxiety/increased heart rate but was still assess in maintaining the patient blood pressure. Patient do have a history of pseudoseizures which might be triggering by her mental state. Continue sertraline 75 mg daily; patient reports that she has not had an episode in a while. Reports on and off headaches but not as frequent, continue magnesium oxide 400 mg at bedtime and OTC pain medication as needed. Patient was encouraged to follow up with Endocrine as scheduled. Orders: Orders Lipid Panel 3 Months I10 - Essential (primary) hypertension, K21.9 - Gastro- esophageal reflux disease without esophagitis, N92.0 - Excessive and frequent menstruation with regular cycle, R42 - Dizziness and giddiness, R73.9 - Hyperglycemia, unspecified Vitamin D 25-OH Total 3 Months I10 - Essential (primary) hypertension, K21.9 - Gastro-esophageal reflux disease without esophagitis, N92.0 - Excessive and fr equent menstruation with regular cycle, R42 - Dizziness and giddiness, R73.9 - Hyperglycemia, unspecified Glucose Fasting 3 Months I10 - Essential (primary) hypertension, K21.9 - Gastro-esophageal reflux disease without esophagitis, N92.0 - Excessive and frequent menstruation with regular cycle, R42 - Dizziness and giddiness, R73.9 - Hyperglycemia, unspecified IRON PROFILE 3 Months I10 - Essential (primary) hypertension, K21.9 - Gastro- esophageal reflux disease without esophagitis, N92.0 - Excessive and frequent menstruation with regular cycle, R42 - Dizziness and giddiness, R73.9 - Hyperglycemia, unspecified Complete Blood Count Auto Diff 3 Months I10 - Essential (primary) hypertension, K21.9 - Gastro-esophageal reflux disease without esophagitis, N92.0 - Excessive and frequent menstruation with regular cycle, R42 - Dizziness and giddiness, R73.9 - Hyperglycemia, unspecified Comprehensive [place]. Panel Fast 3 Months I10 - Essential (primary) hypertension, K21.9 - Gastro-esophageal reflux disease without esophagitis, N92.0 - Excessive and frequent menstruation with regular cycle, R42 - Dizziness and giddiness, R73.9 - Hyperglycemia, unspecified UA CC w/rflx Micro + Cult 3 Months I10 - Essential (primary) hypertension, K21.9 - Gastro-esophageal reflux disease without esophagitis, N92.0 - Excessive and frequent menstruation with regular cycle, R42 - Dizziness and giddiness, R73.9 - Hyperglycemia, unspecified Medications: New fluticasone propionate 50 mcg/actuation administer into each nostril 2 sprays intranasal BID 30 days 16 grams 1RF R09.81 - Nasal congestion Patient Instructions: Patient to follow up in 3 months or sooner for any concerns. Labs ordered for the patient to complete to appointment.
[2024-12-31 16:45] VITALS: BP 128/84; PULSE 91; TEMP 36.5; O2SAT 100; BMI 31.5
--- OUTSIDE RECORDS SUMMARY | 2024-12-31 18:52 | XMS_ITS | Data Portability ---
Author Organization [place] [facility] [place] [address] Care Team Providers Care Card Seller Name Role Phone [facility] Primary Care Provider Assessment Encounter Date Assessment Date Assessment LastModified by Organization Details LastModified Time 09/17/2022 09/17/2022 Overview/History : 27 YO F new to DH and new to provider She is being seen today at home Has PMH of depression, HTN, anxiety, anemia, gestational diabetes She is primarily palestinian speaking and she elects to use her friend via telephone to help translate instead of formal medical palestinian translation w/ our service. Of note she [...] days ago but then after I call [facility] to review records w/ her permission her [...] present, apparently new, discussed w/ member of [facility] who reports this is new [...] -She reports she was [place] [facility] [place] for this issue -She gives me permission to call [facility] [place], I speak with staff Pharmacist Yadira Grace who reports that she has been seen numerous times between Jul, Aug and even yesterday. She has never been seen for a dental issue or facial swelling however. No mention of facial swelling in her chart from yesterday. She was educated at that time to f/u [facility] PCP for URI sxs. -Today now [...] Review completed REVA Tomas [address], [place], [address], [place] [facility] 09/17/2022 14:01:37 section completed REVA Tomas [address], [place], [address], [place] [facility] 09/17/2022 12:55:35 Imaging Results None recorded. Procedure Notes None recorded. Medical Equipment None Reported. Allergies Allergen ID Allergen Name Allergen Category Reaction Reaction Severity Criticality Documentation Date Start Date Code Code System Note Provider Name and Address Organization Details Recorded Time 997177 Augmentin medicatio n Not available Not available Not available 09/17/2022 53142 2 RxNorm REVA Michelle [address], [facility] [place], [address], [place] [facility] 12:48:53 [id number] nifedipin e medicatio n Not available Not available Not available 09/17/2022 7417 RxNorm REVA Michelle [address], [facility] [place], [address], [place] [facility] 3 12:48:58 [id number] Mucinex medicatio n Not available Not available Not available 09/17/2022 08859 7 RxNorm REVA Michelle [address], [facility] [place], [address], [place] [facility] 13:06:54 [id number] cyclobenz aprine medicatio n Not available Not available Not available 09/17/2022 14895 RxNorm REVA Michelle [address] [facility] [place], [address], [place] [facility] 13:07:10 [...] Not Available Not Available Not Available FreeStyle Dilley Lite kit PLEASE CHECK GLUCOSE LEVEL FOR [...] /min 116 mm[Hg] 68 mm[Hg] Not Available [facility] 13:10:43 Social History Question Answer Notes LastModified by Organizat ion Details LastModified Time Tobacco Smoking Status Never Smoker REVA Tomas [address] [place], [place] [address], [address], [place] [facility] 09/17/2022 12:55:47 What Is [...] N Cancer N Stroke N Dementia N Hypothyroidism N Depression Y COPD N Asthma N High Cholesterol N Rheumatoid Arthritis N Pulmonary Embolism N Hypertension Y Osteoporosis N A-fib N Kidney Disease N Gynecological HistoryNo gynecological history recorded. Obstetrics History GPAL:G 0 P 0 0 0 0 Past Encounters Encounter ID Performer Location Encounter Start Date Encounter Closed Date Diagnosis/Indication Diagnosis SNOMED-CT Code Diagnosis ICD10 Code Diagnosis Note [id number] REVA Coy [facility] [address] [place] [address] 09/17/2022 12:41:07 09/17/2022 14:58:27 Left parotid gland swelling [id number] K11.9 Health Concerns Section Related Observation LastModified by Organization Detai ls LastModified Time None Recorded Concern Status LastModified by Organization Details LastModified Time None Recorded Advance Directives Directive None Recorded Payers Encounter Date Sequence Insurance Name Policy Number Policy Gaona Covered Member ID Gaona Member ID Guarantor Name 09/17/2022 1 [facility] (MEDICAID HMO) [id number] [facility] [id number] [facility] Notes Date Note Type Note Provider Name and Address Organization Details Recorded Time 09/17/2022 text/html 27 YO F new to D H and new to providerShe is being seen today [facility] of depression, HTN, anxiety, anemia, gestational diabetesShradha is primarily palestinian speaking and she elects to use her friend via telephone to help translate instead of formal medical palestinian translation w/ our service.Of note she and [...] days ago but then after I call [facility] to review records w/ her permission her [...] reported sxs or concerns today. REVA Tomas [address] [place] [address] [place], [address], [place] [facility] 09/17/2022 14:18:02 OBGyn Episode No OBEpisode recorded.
--- OUTSIDE RECORDS SUMMARY | 2024-12-31 18:52 | XMS_ITS | Clinical Summary ---
Author Organization [facility] Address [address] [place] [address] Care Team Providers Care Edge Kitter Name Role Phone Jeffy Gutierrez MD Primary Care Provider Encounters Date Type Department Care Team Description 12/23/2024 Telephone [facility] [address] [place] [address] Jeffy Gutierrez MD from Last 3 Months Surgical History Surgery Date Site/Laterality Comments SECTION [...] Blood Pressure 105/67 12/26/2023 3:49 PM EDT Auto Cuff Pulse 66 12/26/2023 3:49 PM EDT [...] - 2023-2 5 season) 2024 Influenza Vaccine (Season Ended) 2025 HIB Vaccines Aged Out No longer eligi [...] Documents on File Type Date Recorded Patient Hoop Riveter Expl anation Health Care Decision (hx) 08/30/2023 [facility] Health Care Decision (hx) 08/30/2023 HE [facility] C[facility] PROXY Health Care Decision (hx) 08/30/2023 HE ALTH CARE PROXY Care Teams Edge Kitter Relationship Specialty Start Date End Date Jeffy Gutierrez MD [address] [place] [address] [address] JO-ANN Dixon PCP - General 10/25/23
--- OUTSIDE RECORDS SUMMARY | 2024-12-31 18:52 | XMS_ITS | Clinical Summary ---
Author Organization [facility] Address [address] [place] [address] Care Team Providers Care Baseball Player Name Role Phone Patient, Has No Pcp Or Ref Primary Care Provider Unavailable Allergies Active Allergy Reactions Criticality Noted Date Comments Escitalopram Oxalate Vomiting 11/17/2024 Lorazepam Hives 11/17/2024 Penicillins Hives 11/17/2024 Medications amLODIPine (NORVASC) 10 mg tablet Take 10 mg by mouth once a day. Active Encounters Date Type Department Care Team Description 11/17/2024 5:48 PM EDT - 11/18/2024 12:23 AM EDT Emergency [facility] Emergency Department [address] [place] [address] Rosette Franklin MD Seizure-like activity (Primary Dx) [...] Completed 06/06/2024, 06/04/2019 Procedures * Due to [place] state [...] Months Results * Due to [place] state law, [...] obtain the completed interpretation. ? Workstation ID: [id number] Narrative 11/17/2024 11:12 PM EDT INDICATION: 29 years Female who presents with/for Fatigue and malaise TECHNIQUE: Single view of the chest COMPARISON: None FINDINGS: Lines/Tubes/Support: Telemetry leads. Mediastinum: Cardiomediastinal silhouette is without acute findings. Trachea appears midline. Lungs/Pleura: Symmetrically inflated without focal consolidation, significant pleural effusion, or sizable pneumothorax. Musculoskeletal: No displaced fractures. Abdomen: No acute findings. Resulting Agency Comment [id number] Procedure Note Marco A Gonzalez MD - [...] possible to obtain thecompleted interpretation. Workstation ID: [id number] Rosette Franklin MD IMG XR PROCEDURES Final Result * Repeat Troponin #1 (11/17/2024 10:10 PM EDT) Only the most recent of2 resultswithin the time period is included. Troponin T High Sensitivity <6 <=13 ng/L 11/17/2024 10:37 PM EDT [facility] Comment: Ys-Qalazvdl-C level of 52 ng/L or higher at [...] be evaluated in line with the 4th [place] Definition of AMI. Troponin baseline and serial [...] MD LAB BLOOD ORDERABLES Final Resu lt [facility] [employer] [address] [place] [address], [place] * (ABNORMAL) Microscopic Urinalysis Only (11/17/2024 8:50 PM EDT) WBC, Urine 15-20(A) 0-2, None Seen /HPF [facility] 11/17/2024 9:55 PM EDT [facility] RBC, Urine Too Numerous To Count(A) 0-2, None Seen /HPF [facility] MANUAL 11/17/2024 9:55 PM EDT [facility] Bacteria, Urine 1+(A) None Seen /HPF [facility] MANUAL 11/17/2024 9:55 PM EDT [facility] Squamous Epithelial Cells, Urine Moderate /HPF [facility] MANUAL 11/17/2024 9:55 PM EDT [facility] Trichomonas, Urine Present(A) None Seen /HPF [facility] MANUAL 11/17/2024 9:55 PM EDT [facility] Urine Urine specimen collection, clean catch / Unknown Non-Blood Collection / Unknown 11/17/2024 8:50 PM EDT 11/17/2024 8:55 PM EDT us Rosette Franklin MD LAB URINE ORDERABLES Final Resu lt [facility] [employer] [facility] [address] [place] [address], [place] * (ABNORMAL) Urinalysis W/Reflex to Microscopic & Culture (11/17/2024 8:50 PM EDT) Color, Urine Yellow Yellow 11/17/2024 9:36 PM EDT [facility] Clarity, Urine Clear Clear 11/17/2024 9:36 PM EDT [facility] Specific [place], Urine 1.015 1.005 - 1.030 11/17/2024 9:36 PM EDT [facility] pH, Urine 7.0 5.0 - 8.0 11/17/2024 9:36 PM EDT [facility] Protein, Urine 30(A) Negative mg/dL 11/17/2024 9:36 PM EDT [facility] Glucose, Urine Negative Negative mg/dL 11/17/2024 9:36 PM EDT [facility] Ketones, Urine Negative Negative mg/dL 11/17/2024 9:36 PM EDT [facility] Bilirubin, Urine Negative Negative 11/17/2024 9:36 PM EDT [facility] Blood, Urine Large(A) Negative 11/17/2024 9:36 PM EDT [facility] Nitrite, Urine Negative Negative 11/17/2024 9:36 PM EDT [facility] Urobilinogen , Urine 0.2 0.2, 1.0 E.U./dL 11/17/2024 9:36 PM EDT [facility] Leukocyte Esterase, Urine Moderate(A) Negative 11/17/2024 9:36 PM EDT [facility] Urine Urine specimen collection, clean catch / Unknown Non-Blood Collection / Unknown 11/17/2024 8:50 PM EDT 11/17/2024 8:55 PM EDT [facility] - 11/17/2024 9:36 PM EDT Some urinalysis results will not meet the criteria for reflex urine culture although certain urine values may be abnormal. ??Additional testing can be ordered by the provider if clinically warranted. Rosette Franklin MD LAB URINE ORDERABLES Final Resu lt [facility] [address] [place] [address], [place] * (ABNORMAL) Urine Culture, Routine (11/17/2024 8:50 PM EDT) Urine Culture Workup Less than 10,000 CFU/mL Streptococcus agalactiae(A) BIOMERIEU X VITEK2 COMPACT 12/10/2024 12:39 PM EDT [facility] Urine Culture Workup 10,000-25,000 CFU/mL BIOMERIEU X VITEK2 COMPACT 12/10/2024 12:39 PM EDT [facility] Comment:Mixed Gram positive organisms with no [...] MARIO Edited Result - Final [facility] [address] [place] [address], [place] * CT Head WO Contrast (11/17/2024 [...] obtain the completed interpretation. ? Workstation ID: [id number] Up-to-date CT equipment and radiation dose reduction [...] osseous lesions or fractures. Resulting Agency Comment [id number] Procedure Note Charleen Zhang MD - 11/17/2024 [...] possible to obtain thecompleted interpretation. Workstation ID: [id number] Up-to-date CT equipment and radiation dose reduction [...] - 0.20 10*3/uL 11/17/2024 6:37 PM EDT [facility] nRBC % 0.0 /100 WBCs 11/17/2024 6:37 PM EDT [facility] nRBC # <0.01 <0.01 10*3/uL 11/17/2024 6:37 PM EDT [facility] Blood Structure of peripheral vein / Unknown Venipuncture / Unknown 11/17/2024 6:23 PM EDT 11/17/2024 6:34 PM EDT Rosette Franklin MD LAB BLOOD ORDERABLES Final Resu lt Performing Organization Address [facility]/ZIP Co de Phone Number [address] [address], [place] * hCG, Qualitative, Serum (11/17/2024 6:23 PM EDT) HCG Qualitative, Serum Negative Negative [facility] 11/17/2024 6:59 PM EDT [facility] Comment: hCG may be negative in early . ??Suggest repeat testing in 2-4 days if clinically indicated. ??The results of this test should be interpreted with the patient's clinical presentation. Blood Structure of peripheral vein / Unknown Venipuncture / Unknown 11/17/2024 6:23 PM EDT 11/17/2024 6:34 PM EDT Rosette Franklin MD LAB BLOOD ORDERABLES Final Resu lt Performing Organization Address City/[facility]/ZIP Co de Phone Number [facility] [address] [place] [phone], [place] * Magnesium (11/17/2024 6:23 PM EDT) MG 2.0 1.6 - 2.4 mg/dL 11/17/2024 7:07 PM EDT [facility] Blood Structure of peripheral vein / Unknown Venipuncture / Unknown 11/17/2024 6:23 PM EDT 11/17/2024 6:34 PM EDT us Rosette Franklin MD LAB BLOOD ORDERABLES Final Resu lt [facility] [address] [place] [address], [place] * BMP - Basic Metabolic Panel (11/17/2024 6:23 PM EDT) NA 137 135 - 145 mmol/L 11/17/2024 7:07 PM EDT [facility] K 3.9 3.5 - 5.3 mmol/L 11/17/2024 7:07 PM EDT [facility] Cl 101 98 - 107 mmol/L 11/17/2024 7:07 PM EDT [facility] CO2 23 22 - 32 mmol/L 11/17/2024 7:07 PM EDT [facility] BUN 17 7 - 23 mg/dL 11/17/2024 7:07 PM EDT [facility] Creatinine 0.76 0.50 - 1.20 mg/dL 11/17/2024 7:07 PM EDT [facility] Glucose 91 65 - 99 mg/dL 11/17/2024 7:07 PM EDT [facility] Calcium 9.1 8.6 - 10.5 mg/dL 11/17/2024 7:07 PM EDT [facility] Anion Gap 13 5 - 15 11/17/2024 7:07 PM EDT [facility] eGFR >90 >=60 mL/min/1. 73m2 11/17/2024 7:07 PM EDT [facility] Comment:The estimated glomer ular filtration rate [...] MD LAB BLOOD ORDERABLES Final Resu lt [facility] [address] [place] [address], * ECG 12 lead (11/17/2024 6:14 PM EDT) Ventricular Rate EKG 68 BPM MUSE EKG Atrial Rate 68 BPM MUSE EKG IN Interval 138 ms MUSE EKG QRS Interval 112 ms MUSE EKG QT Interval 400 ms MUSE EKG QTC Interval 425 ms MUSE EKG P [place] 36 degrees MUSE EKG R [place] 45 degrees MUSE EKG T Wave [place] 28 degrees MUSE EKG 11/17/2024 6:14 PM [...] 3 Months Insurance [employer] Care Teams Baseball Player Relationship Specialty Start Date End Date Patient, Has No Pcp Or Ref DO NOT EDIT THIS RECORD VIA PROVIDER ON THE FLY PCP - General [employer] Operator 11/17/24
--- OUTSIDE RECORDS SUMMARY | 2024-12-31 18:52 | XMS_ITS | Referral Summary ---
Author Organization [facility] Address [address] [place] [address] Care Team Providers Care Garment Folder Name Role Phone Patient, Has No Pcp Or Ref Primary Care Provider Unavailable Encounters Date Type Department Care Team Description 11/17/2024 5:48 PM EDT - 11/18/2024 12:23 AM EDT Emergency [facility] Emergency Department [address] [place] [address] Rosette Franklin MD Seizure-like activity (Primary Dx) [...] Not on file Procedures * Due to [place] state law, this organization might not be [...] Last 3 Months Results * Due to [place] [employer] law, this organization might not be sharing [...] obtain the completed interpretation. ? Workstation ID: [id number] Narrative 11/17/2024 11:12 PM EDT INDICATION: 29 years Female who presents with/for Fatigue and malaise TECHNIQUE: Single view of the chest COMPARISON: None FINDINGS: Lines/Tubes/Support: Telemetry leads. Mediastinum: Cardiomediastinal silhouette is without acute findings. Trachea appears midline. Lungs/Pleura: Symmetrically inflated without focal consolidation, significant pleural effusion, or sizable pneumothorax. Musculoskeletal: No displaced fractures. Abdomen: No acute findings. Resulting Agency Comment [id number] Procedure Note Marco A Gonzalez MD - [...] possible to obtain thecompleted interpretation. Workstation ID: [id number] Rosette Franklin MD IMG XR PROCEDURES Final Result * Repeat Troponin #1 (11/17/2024 10:10 PM EDT) Only the most recent of2 resultswithin the time period is included. Troponin T High Sensitivity <6 <=13 ng/L 11/17/2024 10:37 PM EDT [facility] Comment: Xq-Kmgfyyhs-I level of 52 ng/L or higher at [...] be evaluated in line with the 4th [place] Definition of AMI. Troponin baseline and serial [...] lt [facility] [address] [place] [address], [place] * (ABNORMAL) Microscopic Urinalysis Only (11/17/2024 8:50 PM EDT) WBC, Urine 15-20(A) 0-2, None Seen /HPF [facility] MANUAL 11/17/2024 9:55 PM EDT [facility] RBC, Urine Too Numerous To Count(A) 0-2, None Seen /HPF [facility] MANUAL 11/17/2024 9:55 PM EDT [facility] Bacteria, Urine 1+(A) None Seen /HPF [facility] MANUAL 11/17/2024 9:55 PM EDT [facility] Squamous Epithelial Cells, Urine Moderate /HPF [facility] MANUAL 11/17/2024 9:55 PM EDT [facility] Trichomonas, Urine Present(A) None Seen /HPF [facility] MANUAL 11/17/2024 9:55 PM EDT [facility] Urine Urine specimen collection, clean catch / Unknown Non-Blood Collection / Unknown 11/17/2024 8:50 PM EDT 11/17/2024 8:55 PM EDT us Rosette Franklin MD LAB URINE ORDERABLES Final Resu lt [facility] [address] [place] [address], [place] * (ABNORMAL) Urinalysis W/Reflex to Microscopic & Culture (11/17/2024 8:50 PM EDT) Color, Urine Yellow Yellow 11/17/2024 9:36 PM EDT [facility] Clarity, Urine Clear Clear 11/17/2024 9:36 PM EDT [facility] Specific [place], Urine 1.015 1.005 - 1.030 11/17/2024 9:36 [...] Resu lt [facility] [address] [place] [id number], * (ABNORMAL) Urine Culture, Routine (11/17/2024 8:50 PM EDT) Urine Culture Workup Less than 10,000 CFU/mL Streptococcus agalactiae(A) BIOMERIEU X VITEK2 COMPACT 12/10/2024 12:39 PM EDT [facility] Urine Culture Workup 10,000-25,000 CFU/mL BIOMERIEU X VITEK2 COMPACT 12/10/2024 12:39 PM EDT [facility] Comment:Mixed Gram positive organisms with no predominant organism present. Consistent with urogenital contamination after 24 hours. Urine Urine specimen collection, clean catch / Unknown Non-Blood Collection / Unknown 11/17/2024 8:50 PM EDT 11/17/2024 8:57 PM EDT Narrative Organism Antibiotic Method Susceptibility Streptococcus agalactiae Clindamycin [facility] 17 mm: Intermediate Comment:This is [...] us Rosette Franklin MD LAB MICROBIOLOGY - [facility] Edited Result - Final Performing Organization Address City/State/[facility] Co de Phone Number [facility] [address] [place] [phone], [place] * CT Head WO Contrast (11/17/2024 [...] obtain the completed interpretation. ? Workstation ID: [id number] Up-to-date CT equipment and radiation dose reduction [...] osseous lesions or fractures. Resulting Agency Comment [id number] Procedure Note Charleen Zhang MD - 11/17/2024 [...] possible to obtain thecompleted interpretation. Workstation ID: [id number] Up-to-date CT equipment and radiation dose reduction techniques wereemployed. CTDIvol: 45.8 mGy. DLP: 834 mGy-cm. Rosette Franklin MD IM CT PROCEDURES Final Result * (ABNORMAL) CBC Auto Differential (11/17/2024 6:23 PM EDT) [facility] WBC 8.8 3.8 - 10.8 10*3/uL 11/17/2024 6:37 PM EDT [facility] RBC 4.68 3.80 - 5.10 10*6/uL 11/17/2024 6:37 PM EDT [facility] Hemoglobin 11.7 11.7 - 15.5 g/dL [...] - 7.80 10*3/uL 11/17/2024 6:37 PM EDT [facility] Immature Grans # 0.03 <=0.03 10*3/uL 11/17/2024 6:37 PM EDT [facility] Lymphocyte # 2.20 0.85 - 3.90 10*3/uL 11/17/2024 6:37 PM EDT [facility] Monocyte # 0.50 0.20 - 0.95 10*3/uL 11/17/2024 6:37 PM EDT [facility] Eosinophil # 0.20 0.02 - 0.50 10*3/uL 11/17/2024 6:37 PM EDT [facility] Basophil # 0.10 0.00 - [...] lt [facility] [address] [place] [address], [place] * hCG, Qualitative, Serum (11/17/2024 6:23 [...] Resu lt [facility] [address] [place] [address], [place] * Magnesium (11/17/2024 6:23 PM EDT) MG 2.0 1.6 - 2.4 mg/dL 11/17/2024 7:07 PM EDT [facility] Blood Structure of peripheral vein / Unknown Venipuncture / Unknown 11/17/2024 6:23 PM EDT 11/17/2024 6:34 PM EDT us Rosette Franklin MD LAB BLOOD ORDERABLES Final Resu lt [facility] [address] [place] [id number], [place] * BMP - Basic Metabolic Panel (11/17/2024 6:23 PM EDT) NA 137 135 - 145 mmol/L 11/17/2024 7:07 PM EDT [facility] K 3.9 3.5 - 5.3 mmol/L 11/17/2024 7:07 PM EDT [facility] Cl 101 98 - 107 mmol/L 11/17/2024 7:07 PM EDT [facility] CO2 23 22 - 32 mmol/L 11/17/2024 7:07 PM EDT [facility] BUN 17 7 - 23 mg/dL 11/17/2024 7:07 PM EDT [facility] Creatinine 0.76 0.50 - 1.20 mg/dL 11/17/2024 7:07 PM EDT [facility] Glucose 91 65 - 99 mg/dL 11/17/2024 7:07 PM EDT [facility] Calcium 9.1 8.6 - 10.5 mg/dL 11/17/2024 7:07 PM EDT [facility] Anion Gap 13 5 - 15 11/17/2024 7:07 PM EDT [facility] eGFR >90 >=60 mL/min/1. 73m2 11/17/2024 7:07 PM EDT [facility] Comment:The estimated glomer ular filtration [...] LAB BLOOD ORDERABLES Final Resu lt [facility] [address] [place] [address], * ECG 12 lead (11/17/2024 6:14 PM EDT) Ventricular Rate EKG 68 BPM MUSE EKG Atrial Rate 68 BPM MUSE EKG [place] Interval 138 ms MUSE EKG QRS Interval 112 ms MUSE EKG QT Interval 400 ms MUSE EKG QTC Interval 425 ms MUSE EKG P [place] 36 degrees MUSE EKG R [place] 45 degrees MUSE EKG T Wave [place] 28 degrees MUSE EKG 11/17/2024 6:14 PM EDT 11/22/2024 11:04 AM EDT Impressions MUSE EKG - 11/22/2024 11:04 AM EDT Normal sinus rhythm Moderate voltage criteria for LVH, may be normal variant Borderline ECG No previous ECGs available Confirmed by Jerome Augustine ([id number]) on 11/22/2024 11:04:44 AM us Rosette Franklin MD ECG ORDERABLES Final Result MUSE EKG from Last 3 Months Insurance [facility] MEDICAID Care Teams Garment Folder Relationship Specialty Start Date End Date Patient, Has No Pcp Or Ref DO NOT EDIT THIS RECORD VIA PROVIDER ON THE FLY PCP - General Net Fisher 11/17/24
== END 2024-12-31 17:33 | disposition home or self-care (01) ==
LOC: HO.HMCH 16:29
PROVIDERS: PCP Internal Medicine
DX: R42 Dizziness and giddiness (principal); R09.81 Nasal congestion; E05.00 Thyrotoxicosis with diffuse goiter without thyrotoxic crisis or storm; G43.109 Migraine with aura, not intractable, without status migrainosus; F44.5 Conversion disorder with seizures or convulsions; I10 Essential (primary) hypertension

== ENCOUNTER → 2024-12-31 16:28 | Outpatient (BNVA) | payer OTHER, SELFPAY | PROVIDERS: PCP Internal Medicine | DX: R42 Dizziness and giddiness (principal); R09.81 Nasal congestion; E05.00 Thyrotoxicosis with diffuse goiter without thyrotoxic crisis or storm; G43.109 Migraine with aura, not intractable, without status migrainosus; F44.5 Conversion disorder with seizures or convulsions; I10 Essential (primary) hypertension; Z79.899 Other long term (current) drug therapy | CPT/HCPCS: 99212 ==

== ENCOUNTER 2025-02-25 08:23 | Emergency (ER) | payer OTHER, SELFPAY ==
--- NOTE | ~2025-02-25 | XR_ITS ---
EXAMINATION: XR RIBS, LEFT CLINICAL INFORMATION: fall, pain COMPARISON: December 10, 2024. TECHNIQUE: 3 views of the left ribs were obtained. FINDINGS: No consolidation, pleural effusion or pneumothorax. No hyperinflation. Cardiomediastinal silhouette size is normal. The risks in the left hemithorax are intact without cortical irregularity. There is a metallic BB marker in place demonstrated no cortical disruption in the adjacent ribs. XR/XR ribs LT min 3V w CXR1V IMPRESSION: No acute rib fractures, left hemithorax. No acute airspace disease. Negative x-ray. Electronically signed by: Luis Grimaldo MD 02/25/2025 08:50 AM EDT
[2025-02-25 08:26] VITALS: BP 146/84; PULSE 74; RESP 16; TEMP 36.3; O2SAT 100; BMI 32.8
--- NOTE | 2025-02-25 08:26 | ED_ITS ---
HPI - Fall General Chief Complaint: Fall Stated Complaint: Fall Yesterday Left side Time Seen by Provider: 02/25/25 08:38 Source: patient, RN notes reviewed, old records reviewed and regional marketing director Mode of arrival: ambulatory Limitations: language barrier History of Present Illness ED Provider: Daylin HPI Narrative: Patient is a 29-year-old Togolese speaking female presenting to the ED with complaint of left sided rib pain after a slip and fall at home yesterday. States she was changing the shower curtain wearing socks, slipped and got caught between the tub and vanity. Denies head strike or loss of consciousness. Denies any other injuries. Denies shortness of breath or difficulty breathing. MD complaint: fall Related Data Previous Rx's ?Medication ?Instructions ?Recorded miscellaneous medical supply #1 ea 03/30/23 (Blood Pressure Cuff) magnesium oxide 400 mg (241.3 mg 400 mg PO BEDTIME 30 days #30 tabs 01/31/24 magnesium) tablet sennosides 8.6 mg tablet (Senna 8.6 mg PO BEDTIME PRN constipation 02/01/24 Lax) #30 tabs diphenhydramine HCl 25 mg capsule 25 mg PO TID PRN allergic reaction 05/07/24 (Benadryl) or migraine headache 30 days #30 caps amlodipine 10 mg tablet 10 mg PO DAILY 90 days #90 tabs 10/14/24 propranolol 10 mg tablet 15 mg (1.5 x 10 mg) PO BID 90 days 10/14/24 #270 tabs sertraline 50 mg tablet 75 mg (1.5 x 50 mg) PO DAILY 30 10/14/24 days #45 tabs albuterol sulfate 1.25 mg/3 mL 1.25 mg (3 mL) inhalation Q4-6H 10/20/24 solution for nebulization PRN bronchospasm #90 mL albuterol sulfate 90 mcg/actuation 2 inh inhalation Q4-6H PRN 10/20/24 breath activated powder shortness of breath or wheezing #1 inhaler,sensor (Proair Digihaler) ea cefuroxime axetil 250 mg tablet 250 mg PO BID 7 days #14 tabs 11/22/24 methocarbamol 750 mg tablet 750 mg PO BEDTIME #14 tabs 12/27/24 meclizine 25 mg tablet 25 mg PO BID PRN dizziness 5 days 12/29/24 #10 tabs triamcinolone acetonide 55 mcg 2 spray intranasal BEDTIME #16.9 mL 01/01/25 nasal spray aerosol lidocaine 5 % topical patch 1 patch topical DAILY #15 ea 02/25/25 Allergies Allergy/AdvReac Type Severity Reaction Status Date / Time morphine Allergy Severe Vomiting Verified 02/25/25 08:28 chlorthalidone Allergy Intermediate Chest Pain Verified 02/25/25 08:28 glucagon Allergy Intermediate Unknown Verified 02/25/25 08:28 guaifenesin [From Mucinex] Allergy Intermediate Unknown Verified 02/25/25 08:28 latex Allergy Intermediate Rash Verified 02/25/25 08:28 amoxicillin Allergy Mild Rash Verified 02/25/25 08:28 clavulanic acid Allergy Unknown Unknown Verified 02/25/25 08:28 [From Augmentin] cyclobenzaprine Allergy Palpitation Verified 02/25/25 08:28 [From Flexeril] s escitalopram Allergy Palpitation Verified 02/25/25 08:28 s hydralazine Allergy Nausea and Verified 02/25/25 08:28 Vomiting lorazepam [From Ativan] Allergy Palpitation Verified 02/25/25 08:28 s nifedipine Allergy Intermediate Unknown Uncoded 12/31/24 16:47 Review of Systems Review of Systems: As per HPI Yes all other systems are reviewed and are negative Constitutional: Constitutional: Reports as per HPI PMFSH Past Medical History Medical History Graves disease Graves' eye disease Pituitary microadenoma Psychogenic nonepileptic seizure Hyperthyroidism Essential hypertension Breast pain, left Overweight (BMI 25.0-29.9) Heavy menses Chronic constipation GERD without esophagitis Anemia HTN (hypertension) Anxiety Surgical History History of tubal ligation H/O tooth extraction (~12/10/22) H/O: Family History Family History Paternal Aunt Breast cancer, Onset Age: 35 Maternal Aunt Breast cancer, Onset Age: 40 Other Diabetes High cholesterol Hypertension Social History Social History Housing: House Alcohol intake: never Patient Tobacco Use Status: Never used Tobacco Tobacco use type: Cigarette e-Cigarette/Vaping Use: Never Used Second Hand Smoke Exposure: No Advance Directives: No Advance Directives Information Provided: Yes service: No Current occupational status: unemployed Cognitive needs: No Hearing needs: No Vision needs: Yes (Glasses) Physical Exam Vital Signs: Vital Signs: Last Vital Signs Temp 97.4 F 02/25/25 08:26 Pulse 74 02/25/25 08:26 Resp 16 02/25/25 08:26 BP 146/84 H 02/25/25 08:26 Pulse Ox 100 02/25/25 08:26 O2 Del Method Room Air 02/25/25 08:26 BMI result Body Mass Index 32.8 Vital signs have been reviewed and appear to be correct. Blood pressure normal. Heart rate normal. Respiratory rate normal. Temperature normal. Oxygen saturation normal. Const: General: cooperative, healthy appearing and no acute distress Orientation/consciousness: oriented to person, oriented to place, oriented to time and patient oriented x3 Limitations: no limitations HEENT: Head: Yes normocephalic and Yes atraumatic Ears: external ears normal General nose exam: Normal external nose present Face and sinus: Yes face symmetric Mouth: oropharynx normal and moist mucous membranes Throat: Yes uvula midline Eyes: Pupils: Equal, round and reactive pupils present Neck: Neck: Yes normal visual inspection and Yes supple Chest: Chest palpation & inspection: tenderness rib left mid-axillary line involving the 6th rib, involving the 7th rib, involving the 8th rib and involving the 9th rib Resp: Effort & Inspection: normal respiratory effort and able to speak in complete sentences Auscultation: clear to auscultation bilaterally Cardio: Rate: regular rate Rhythm: regular rhythm Heart sounds: S1 normal heart sound present and S2 normal heart sound present GI: Palpation (GI): Soft to palpation and nontender Auscultation: normoactive bowel sounds : General: Yes no CVA tenderness Back/Spine/Pelvis: Back: no CVA tenderness Skin: General skin exam: elasticity normal and turgor normal Neuro: General: oriented to person, oriented to place, oriented to time, patient oriented x3, moves all extremities, no focal motor deficits and CN's II- XI intact bilaterally Cranial nerves: Yes Equal, round and reactive pupils present Cognition (Neuro): normal cognition Extrem: General: Yes full ROM, Yes no pedal edema and Yes no calf tenderness Psych: Mental Status: mental status grossly normal Affect: normal affect Thought process: Normal thought process present Course Course Course Narrative: 29 yo female with PMH of migraines, graves disease, hyperthyroidism, HTN, anxiety, anemia, GERD here with c/o slip and fall hitting L ribs on side of tub - no head strike no neck pain no LOC. She notes hurts to move and breathe on the L side. No UE injury has chronic brace from carpal tunnel. She has lung sounds on arrival and sat is 100%. Will obtain rib films. No head or neck trauma reported this is a RAPID medical screening exam the rest of the history and physical exam is to be done by the main provider. MIESHA 02/25/25 Medical Decision Making Medical Decision Making [facility] Narrative: Patient is a 29-year-old Togolese speaking female presenting to the ED with complaint of left sided rib pain after a slip and fall at home yesterday. On exam patient is awake, A+Ox3, VS WNL, afebrile, normal neurological exam without focal deficits, physical exam findings as above. Given reported symptoms and physical exam findings, initial differential includes but is not limited to rib contusion versus fracture, pneumothorax. Chest x-ray without evidence of fracture or ptx. My interpretation is in agreement with the radiologist's interpretation. Results discussed with patient and all questions answered. Advised alternating Tylenol and ibuprofen, will send prescription for topical lidocaine patches. Patient provided with incentive spirometer and instructions. Follow up with PCP as needed. Return precautions discussed at bedside. Patient verbalized understanding of and agreement with plan. In-person communications analyst was utilized for all interactions, assessments, and discussions. Differential Diagnosis Differential Diagnoses: The differential diagnosis associated with the presentation includes As per MDM Admission/Observation Consideration of admission/observation: Escalation of care including admission/observation considered Patient would have been admitted to the hospital had their work up had any findings where hospital admission was appropriate and their clinical presentation warranted hospital admission. Independent Interpretation I performed an independent interpretation of an: Plain X-Ray Interpretation: Rib x-ray Without evidence of fracture or pneumothorax. Radiology Impression Discussion of test interpretation with radiology: I have reviewed the radiologist's reading. Radiologist Impression: XR/XR ribs LT min 3V w CXR1V IMPRESSION: No acute rib fractures, left hemithorax. No acute airspace disease. Negative x-ray. External Record Review External record reviewed: Inpatient record, Office record and Outpatient record Prescription Management I considered prescription management with: Pain Medication Discharge Plan Discharge Clinical Impression: Contusion of rib on left side Patient Disposition: Home, Self-Care Instructions: How to Use an Incentive Spirometer (ED), Contusion in Adults (ED), Rib Contusion (ED) Additional Instructions: You were evaluated in the emergency department today for left rib pain after a fall. Your x-ray did not show evidence of a fracture. You were provided with an incentive spirometer, use this as directed to prevent pneumonia. We recommend that you use 600 mg of ibuprofen or 650 mg of Tylenol every 6 hours as needed for pain. If necessary, you can alternate these medications every 3 hours. For example, at 9:00 a.m. take Tylenol, then at noon take ibuprofen, then at 3:00 p.m. take Tylenol, etc.. You have been prescribed topical lidocaine patches which you can wear for up to 12 hours in a 24 hour period. Do not apply heat directly over the patches.Follow-up with your primary care provider as needed. Return to the emergency department if you develop worsening pain, difficulty breathing or shortness of breath, fever or any other new or concerning symptoms. Prescriptions: New lidocaine 5 % adhesive patch,medicated 1 patch topical DAILY Qty: 15 0RF Rx Instructions: leave on most painful area for up to 12 hrs No Action (DME) Blood Pressure Cuff Misc See Rx Instructions .ROUTE .MEDSUPPLY Qty: 1 0RF Rx Instructions: As directed sennosides [Senna Lax] 8.6 mg tablet 8.6 mg PO BEDTIME PRN (Reason: constipation) Qty: 30 1RF meclizine 25 mg tablet 25 mg PO BID PRN (Reason: dizziness) 5 Days Qty: 10 0RF triamcinolone acetonide 55 mcg aerosol,spray 2 spray intranasal BEDTIME Qty: 16.9 0RF Rx Instructions: administer into each nostril methocarbamol 750 mg tablet 750 mg PO BEDTIME Qty: 14 0RF Proair Digihaler 90 mcg/actuation aero powdr breath act w/sensor 2 inh inhalation Q4-6H PRN (Reason: shortness of breath or wheezing) Qty: 1 0RF albuterol sulfate 1.25 mg/3 mL solution for nebulization 1.25 mg inhalation Q4-6H PRN (Reason: bronchospasm) Qty: 90 0RF cefuroxime axetil 250 mg tablet 250 mg PO BID 7 Days Qty: 14 0RF magnesium oxide 400 mg (241.3 mg magnesium) tablet 400 mg PO BEDTIME 30 Days Qty: 30 6RF Rx Instructions: may hold for loose stools diphenhydramine HCl [Benadryl] 25 mg capsule 25 mg PO TID PRN (Reason: allergic reaction or migraine headache) 30 Days Qty: 30 1RF propranolol 10 mg tablet 15 mg PO BID 90 Days Qty: 270 0RF sertraline 50 mg tablet 75 mg PO DAILY 30 Days Qty: 45 2RF amlodipine 10 mg tablet 10 mg PO DAILY 90 Days Qty: 90 0RF Print Language: Togolese
[2025-02-25 09:23] VITALS: BP 128/74; BP 146/84; PULSE 64; PULSE 74; RESP 16; TEMP 36.3; TEMP 36.6; O2SAT 100; O2SAT 98
--- NOTE | 2025-02-25 09:28 | PC.NURSE ---
Patient presents to ED c/o left rib pain. Patient was in bathroom hanging shower curtain when she tripped and fell hitting her left ribs on the bathtub. pain rated 9/10. Denies headstrike, LOC, n/v. No external injuries noted. VSS and up to date. Plan of care on going.
--- OUTSIDE RECORDS SUMMARY | 2025-02-25 09:28 | XMS_ITS | Data Portability ---
Author Organization [place] [facility] [place] [address] Care Team Providers Care Restaurant General Manager Name Role Phone [facility] Primary Care Provider Assessment Encounter Date Assessment Date Assessment LastModified by Organization Details LastModified Time 09/17/2022 09/17/2022 Overview/History : 27 YO F new to DH and new to provider She is being seen today at home Has PMH of depression, HTN, anxiety, anemia, gestational diabetes She is primarily maltese speaking and she elects to use her friend via telephone to help translate instead of formal medical maltese translation w/ our service. Of note she [...] days ago but then after I call [facility] to review records w/ her permission [...] present, apparently new, discussed w/ member of [facility] who reports this is new [...] visit -She reports she was seen in [facility] ED in Jul for this issue -She gives me permission to call [facility] to review records, I speak with staff Pharmacist Yadira Grace who reports that she has been seen numerous times between Jul, Aug and even yesterday. She has never been seen for a dental issue or facial swelling however. No mention of facial swelling in her chart from yesterday. She was educated at that time to f/u [facility] PCP for URI sxs. -Today now w/ [...] Review completed [facility] [address], [place], [address], [place] [facility] 09/17/2022 14:01:37 section completed [facility] Tomas [address], [place], [address], [place] [facility] 09/17/2022 12:55:35 Imaging Results None recorded. Procedure Notes None recorded. Medical Equipment None Reported. Allergies Allergen ID Allergen Name Allergen Category Reaction Reaction Severity Criticality Documentation Date Start Date Code Code System Note Provider Name and Address Organization Details Recorded Time 200227 Augmentin medicatio n Not available Not available Not available 09/17/2022 00328 2 RxNorm REVA Michelle [address], [place], [address], [place] [facility] 12:48:53 [id number] nifedipin e medicatio n Not available Not available Not available 09/17/2022 7417 RxNorm REVA Michelle [address], [place], [address], [place] [facility] 3 12:48:58 [id number] Mucinex medicatio n Not available Not available Not available 09/17/2022 20694 7 RxNorm REVA Michelle [address], [place], [address], [place] [facility] 13:06:54 [id number] cyclobenz aprine medicatio n Not available Not available Not available 09/17/2022 95867 RxNorm REVA Michelle [address] [place], [address], [place] [facility] 13:07:10 [...] Not Available Not Available Not Available [employer] Lite kit PLEASE CHECK GLUCOSE LEVEL FOR [...] /min 116 mm[Hg] 68 mm[Hg] Not Available [facility] 13:10:43 Social History Question Answer Notes LastModified by [employer] Details LastModified Time Tobacco Smoking Status Never Smoker RE[facility] Tomas [address] [place] [address], [address], [place] [facility] 09/17/2022 12:55:47 Does This Patient Have A PCP? Yes [email or web address] Information not available 09/17/2022 Has The Patient Seen Their PCP In The Past 6 Months? Yes [email or web address] Information not available 09/17/2022 Sex: Unknown Functional Status Question Answer Note LastModified by [employer] Details LastModified Time Do you use any illicit or recreational drugs? No Information not available 09/17/2022 What is your level of alcohol consumption? None Information not available 09/17/2022 Mental Status None recorded. Family History Relationship Description Onset Age of this Age Resolved Age Notes LastModified by Organization Details LastModified Time Father Type 2 diabetes mellitus [employer]um[employer]ik Not available 2022 12:55:55 Mother Type 2 diabetes mellitus [employer] Not available 2022 12:56:00 Medical History Condition Response Coronary Artery Disease N Depression Y COPD N Hypothyroidism N A-fib N Cancer N Stroke N High Cholesterol N Rheumatoid Arthritis N Kidney Disease N Parkinson's Disease N Diabetes N CHF N Dementia N Asthma N Pulmonary Embolism N Hypertension Y Osteoporosis N Gynecological HistoryNo gynecological history recorded. Obstetrics History GPAL:G 0 P 0 0 0 0 Past Encounters Encounter ID Performer Location Encounter Start Date Encounter Closed Date Diagnosis/Indication Diagnosis SNOMED-CT Code Diagnosis ICD10 Code Diagnosis Note [id number] [facility] [address] [place] [address] 09/17/2022 12:41:07 09/17/2022 14:58:27 Left parotid gland swelling [id number] 3368101 K11.9 Health Concerns Section Related Observation LastModified by Organization Detai ls LastModified Time None Recorded Concern Status LastModified by Organization Details LastModified Time None Recorded Advance Directives Directive None Recorded Payers Insurance Date Sequence Insurance Name Policy Number Policy Gaona Covered Member ID Gaona Member ID Guarantor Name 09/17/2022 1 [facility] (MEDICAID HMO) [id number] Linoshka Omar [id number] Linoshka Omar 09/17/2022 1 *SELF PAY* Linoshka Omar [id number] Linoshka Omar 09/17/2022 1 [facility] (MEDICAID O) [id number] Linoshka Omar [id number] Linoshka Omar 09/17/2022 1 [facility] (MEDICAID HMO) [id number] Linoshka Omar [id number] Linoshka Omar 09/17/2022 1 [facility] (MEDICAID O) [id number] Linoshka Omar [id number] Linoshka Omar Notes Date Note Type Note Provider Name and Address Organization Details Recorded Time 09/17/2022 text/html 27 YO F new to D H and new to providerShe [facility], HTN, anxiety, anemia, gestational diabetesIlda is primarily maltese speaking and she elects to use her friend via telephone to help translate instead of formal medical maltese translation w/ our service.Of note she and [...] days ago but then after I call [facility] to review records w/ her permission [...] reported sxs or concerns today. [facility] Tomas [address], [place], [address], [place] [facility] 09/17/2022 14:18:02 OBGyn Episode No OBEpisode recorded.
--- NOTE | 2025-02-25 09:34 | PC.NURSE ---
Left rib xray negative. Patient given incentive spirometer and educated on how to use device. Patient currently at 750ml, encouraged patient to continue use of device.
[2025-02-25 09:37] VITALS: BP 128/74; PULSE 64; RESP 16; TEMP 36.6; O2SAT 98
== END 2025-02-25 09:48 | disposition home or self-care (01) ==
PROVIDERS: Emergency Provider Emergency Medicine; PCP Internal Medicine
DX: S20.212A Contusion of left front wall of thorax, initial encounter (principal); W17.89XA Other fall from one level to another, initial encounter; Y93.E9 Activity, other interior property and clothing maintenance; Y92.031 Bathroom in apartment as the place of occurrence of the external cause; Y99.9 Unspecified external cause status
CPT/HCPCS: 71101; 99283; 99284

== ENCOUNTER → 2025-02-25 08:29 | Outpatient (BNV) | payer OTHER, SELFPAY | PROVIDERS: Emergency Provider Emergency Medicine; PCP Internal Medicine; Visit Provider Radiology Diagnostic Radiology | DX: R10.32 Left lower quadrant pain (principal) | CPT/HCPCS: 71101 ==

== ENCOUNTER 2025-02-26 08:23 | Outpatient (AMB) | payer OTHER, SELFPAY ==
[2025-02-26 08:31] VITALS: BP 130/62; PULSE 73; BMI 33.2
--- NOTE | 2025-02-26 08:31 | A.OFFVIS_ITS ---
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 Name: [email or web address]/cook [id number] Accompanied by: Self / Same As Patient Allergies morphine Allergy (Severe, Verified 02/25/25 08:28) Vomiting chlorthalidone Allergy (Intermediate, Verified 02/25/25 08:28) Chest Pain glucagon Allergy (Intermediate, Verified 02/25/25 08:28) Unknown guaifenesin (From Mucinex) Allergy (Intermediate, Verified 02/25/25 08:28) Unknown latex Allergy (Intermediate, Verified 02/25/25 08:28) Rash amoxicillin Allergy (Mild, Verified 02/25/25 08:28) Rash clavulanic acid (From Augmentin) Allergy (Unknown, Verified 02/25/25 08:28) Unknown cyclobenzaprine (From Flexeril) Allergy (Verified 02/25/25 08:28) Palpitations escitalopram Allergy (Verified 02/25/25 08:28) Palpitations hydralazine Allergy (Verified 02/25/25 08:28) Nausea and Vomiting lorazepam (From Ativan) Allergy (Verified 02/25/25 08:28) Palpitations nifedipine Allergy (Intermediate, Uncoded 12/31/24 16:47) Unknown Medication List - Last Reconciled 02/26/25 by Vlad Palomares MD albuterol sulfate 1.25 mg (3 mL) inhalation Q4-6H PRN amlodipine 10 mg PO DAILY 90 days diphenhydramine HCl (Benadryl) 25 mg PO TID PRN 30 days lidocaine 5% 1 patch topical DAILY miscellaneous medical supply (Blood Pressure Cuff) As directed propranolol 15 mg (1.5 x 10 mg) PO BID 90 days triamcinolone acetonide 2 sprays intranasal BEDTIME HPI Comments Details: Nicole is here for consultation regarding palpitations and other complaints. She does not have any prior history of cardiac issues. She has hyperthyroidism listed in her history. Not clear if it is an active issue or not. Seems to be on propranolol. She states that she randomly gets palpitations. She can feel the heart fluttering at daytime or nighttime and in fact no specific patterns. There are also episodes where she suddenly feels dizzy and it seems she might lose consciousness for few seconds and then returns back to normal self. Random chest pains. Hence she is here for further evaluation. [facility] Medical History Graves disease Graves' eye disease Pituitary microadenoma Psychogenic nonepileptic seizure Hyperthyroidism Essential hypertension Breast pain, left Overweight (BMI 25.0-29.9) Heavy menses Chronic constipation GERD without esophagitis Anemia HTN (hypertension) Anxiety Surgical History History of tubal ligation H/O tooth extraction (~12/10/22) H/O: Family History Paternal Aunt Breast cancer, Onset Age: 35 Maternal Aunt Breast cancer, Onset Age: 40 Other Diabetes High cholesterol Hypertension Social History Housing: House Alcohol intake: never Patient Tobacco Use Status: Never used Tobacco Tobacco use type: Cigarette e-Cigarette/Vaping Use: Never Used Second Hand Smoke Exposure: No service: No Current occupational status: unemployed Cognitive needs: No Hearing needs: No Vision needs: Yes (Glasses) Review of Systems Const Denies chills, Denies fatigue, Denies fever(s), Denies frequent falls, Denies weakness, Denies weight gain and Denies weight loss ENT Denies dizziness Card Reports chest pain, Reports chest pain at rest, Reports chest pain with activity, Denies leg edema, Denies lightheadedness, Reports palpitations, Reports dyspnea, Reports dyspnea on exertion and Reports orthopnea Resp Denies cough, Reports dyspnea and Reports dyspnea on exertion GI Denies bloating and Denies change in bowel habits Musc Denies muscle weakness, Denies numbness and Denies tingling Neuro Denies dizziness, Denies frequent falls, Denies numbness, Denies tingling and Denies weakness Endo Denies fatigue and Reports palpitations Physical Exam Vital Signs: Last Vital Signs Pulse 73 02/26/25 08:31 BP 130/62 02/26/25 08:31 BMI result Body Mass Index 33.2 Const General: comfortable and no acute distress Orientation/consciousness: patient oriented x3 HEENT Other: Unremarkable Head: Yes normal to inspection Neck Neck: Yes normal visual inspection Chest Chest palpation & inspection: normal inspection of the chest Resp Auscultation: clear to auscultation bilaterally Cardio Palpation: normal PMI Heart sounds: S1 normal heart sound present, S2 normal heart sound present, no gallops, Murmur heart sound present systolic II/ and at the right sternal border and no rubs GI Palpation (GI): Soft to palpation Back/Spine/Pelvis Other: unremarkable Skin General skin exam: no rashes or lesions noted Neuro General: patient oriented x3 Extrem General: Yes normal to inspection Psych Mental Status: mental status grossly normal Office Procedures EKG Details: EKG with underlying sinus rhythm at 73/Min; voltage criteria for LVH but could be normal variant; [place]. [id number], Complete Assessment & Plan Assessment & Plan (1) Heart palpitations: Code(s): R00.2 - Palpitations Category: Medical (2) Syncopal episodes: Code(s): R55 - Syncope and collapse Category: Medical Qualifiers: Syncope type: unspecified Qualified Code(s): R55 - Syncope and collapse (3) Atypical chest pain: Code(s): R07.89 - Other chest pain Category: Medical Plan On examination, she has a short systolic murmur in the aortic area. EKG shows possible LVH versus normal variant. High sensitivity troponins have been checked numerous times in the past few years and they have all been within normal limits. History of hyperthyroidism. Not clear if she is having sinus tachycardia or any other supraventricular arrhythmia including atrial fibrillation. That could cause palpitations. With regard to the syncope, may not be cardiac. Chest pain is also very atypical. We will perform comprehensive workup including echocardiogram, 30 day monitor. Discussed with the patient about this and she is agreeable. Further plan based on the findings. Orders: Orders CA echo transthoracic complete Today R00.2 - Palpitations ECG 30 day event monitor Today R00.2 - Palpitations Coding Level of Care Code New Pt Level 4 (93164) Complex EM visit Add On G2211 Diagnoses Heart palpitations R00.2 Syncope, unspecified syncope type R55 Syncope type: unspecified Atypical chest pain R07.89 CPT Codes EKG - CPT: [id number], Complete ([id number])
== END 2025-02-26 08:57 | disposition home or self-care (01) ==
LOC: HO.HCS 08:23
PROVIDERS: PCP Internal Medicine; Visit Provider Internal Medicine
DX: R01.1 Cardiac murmur, unspecified (principal); R55 Syncope and collapse; R07.89 Other chest pain; I42.2 Other hypertrophic cardiomyopathy
CPT/HCPCS: 93010; 99204; G2211

== ENCOUNTER → 2025-02-26 08:23 | Outpatient (BNVA) | payer OTHER, SELFPAY | PROVIDERS: PCP Internal Medicine; Visit Provider Internal Medicine | DX: R00.2 Palpitations (principal); R07.89 Other chest pain; R55 Syncope and collapse | CPT/HCPCS: 93005; 99202 ==

== ENCOUNTER 2025-03-27 08:08 | Outpatient (AMB) | payer OTHER, SELFPAY ==
--- OUTSIDE RECORDS SUMMARY | 2025-03-27 08:10 | XMS_ITS | Clinical Summary ---
Author Organization [employer] [facility] ity Address [address] [place] [address] Care Team Providers Care Manager Rail Name Role Phone Jeffy Gutierrez MD Primary [...] 2023-2 5 season) 2024 Influenza Vaccine (#1) 2025 HIB Vaccines Aged Out No longer [...] 5 Years) and At-Risk Patients (6 to 49 Years) Aged Out No longer eligible b ased on patient's age to complete this topic RSV Immunization Patients Un bernard 20 months Aged Out No longer eligible b ased on patient's age to complete this topic Varicella Vaccines Aged Out No longer eligible based on patient's age to complete this topic Advance Directives Documents on File Type Date Recorded 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
--- OUTSIDE RECORDS SUMMARY | 2025-03-27 08:11 | XMS_ITS | Referral Summary ---
Author Organization [facility] Address [address] [place] [address] Care Team Providers Care Vocational Guidance Counselor Name Role Phone Patient, Has No [...] 65 11/17/2024 8:45 PM EDT Temperature 37 C (98.6 F) 11/17/2024 6:08 PM EDT Respiratory Rate 19 11/17/2024 8:45 PM EDT Oxygen Saturation 99% 11/17/2024 8:45 PM EDT Inhaled Oxygen Concentration - - Weight - - Height - - Body Mass Index - - Plan of Treatment Not on file Insurance [employer] Care Teams Vocational Guidance Counselor Relationship Specialty Start Date End Date Patient, Has No Pcp Or Ref DO NOT EDIT THIS RECORD VIA PROVIDER ON THE FLY PCP - General Resolution Agent 11/17/24
--- NOTE | 2025-03-27 08:18 | A.OFFVIS_ITS ---
Vital Signs 03/27/25 08:19 Height 5 ft Weight 175 lb BMI 34.2 BP 124/70 Blood Pressure Location Lt brachial Position Sitting Pulse 80 Pulse Source Pulse Oximeter Pulse Oximetry (%) 99 Oxygen Delivery Method Room Air Intake Visit Reasons: Follow-up Intake Note: Patient presents follow up Migraine/Sleep medication. NO-showed HST 07/24 Arterial Embalmer Required: Yes Arterial Embalmer Services: Arterial Embalmer Offered & Declined Accompanied by: Self / Same As Patient Allergies morphine Allergy (Severe, Verified 03/27/25 08:23) Vomiting chlorthalidone Allergy (Intermediate, Verified 03/27/25 08:23) Chest Pain glucagon Allergy (Intermediate, Verified 03/27/25 08:23) Unknown guaifenesin (From Mucinex) Allergy (Intermediate, Verified 03/27/25 08:23) Unknown latex Allergy (Intermediate, Verified 03/27/25 08:23) Rash amoxicillin Allergy (Mild, Verified 03/27/25 08:23) Rash clavulanic acid (From Augmentin) Allergy (Unknown, Verified 03/27/25 08:23) Unknown cyclobenzaprine (From Flexeril) Allergy (Verified 03/27/25 08:23) Palpitations escitalopram Allergy (Verified 03/27/25 08:23) Palpitations hydralazine Allergy (Verified 03/27/25 08:23) Nausea and Vomiting lorazepam (From Ativan) Allergy (Verified 03/27/25 08:23) Palpitations nifedipine Allergy (Intermediate, Uncoded 12/31/24 16:47) Unknown Medication List - Last Reconciled 03/27/25 by LIZZY Mcgill albuterol sulfate 1.25 mg (3 mL) inhalation Q4-6H PRN amlodipine 10 mg PO DAILY 90 days diphenhydramine HCl (Benadryl) 25 mg PO TID PRN 30 days lidocaine 5% 1 patch topical DAILY miscellaneous medical supply (Blood Pressure Cuff) As directed propranolol 15 mg (1.5 x 10 mg) PO BID 90 days triamcinolone acetonide 2 sprays intranasal BEDTIME HPI Comments Details: 30-yr-old female presents for follow-up of convulsive episodes, migraine, sleep difficulties. Pt is proximally 7 months . She states the end of the was complicated by preeclampsia, causing early delivery at 35 weeks, and need for delivery. Since the delivery, patient states that her body has not been the same. She continues to have episodes of palpitations, though her blood pressure is a bit better controlled on her current anti hypertension regimen. She is followed closely by Cardiology, and scheduled to undergo echocardiogram additional cardiac testing. She denies lightheadedness. However, she endorses room spinning dizziness triggered by turning her head or standing up. She has never done vestibular PT in the past. She states she had not had a convulsive episode in a few months, however the other day she had an episode that was triggered by stress related to the presence of mice in her home kitchen, and her worry about The effect this would have on her daughter. Previous VEEG report rec'd- was negative. She missed her sleep study due to the complications with . She continues to have excessive daytime sleepiness, snoring, sleep difficulties. She would like to rescheduled sleep study. She is having strong headaches with visual changes. Denies vision changes w/o headache. She is having 2-3 migraine attacks per week, which can last couple of days. She does use ice and Vicks type movement, however this is not fully effective. She previously tried sumatriptan, however this exacerbated her palpitations. 11/22/2024, head CT showed white matter abnormalities, mild maxillary sinus mucosal disease, a large periapical lucency identified involving the root tip of tooth #1.0 03/04/2024, There are mild bilateral scattered foci of punctate and minimally confluent white matter T2 hyperintensity in the supratentorial white matter. Baseline headache characteristics: Prodrome symptoms: Unsure Aura: Blurry vision, sees black lines lines, phosphorescent vision, vision loss Pain intensity: Sever Location, quality, characteristics: Pounding pain in bilateral retro-orbital, temporal, top of head regions Associated symptoms: Photophobia, Phonophobia, osmophobia, nausea, dizziness, droopy eyelid, altered facial sensation, fatigue, foot numbness, activity intolerance. Postdrome: Unsure 01/31/2024, initial HPI: 28-yr-old female presents for new pt evaluation of headache and convulsions. Pt reprots she is currently 6 weeks . Pt reports she started having convulsive episodes about a year ago, and headaches a few months ago. PMH and ROS are significant for: Musculoskeletal disorders or injury: Neck pain Cramps: leg cramps Sleep d/o: sleep difficulties CV disease: anemia, heart murmur, HTN Endocrine or metabolic d/o: Thyroid d/o, Gestational diabetes : frequent urination GI d/o: Abd pain, N/V, Constipation, GERD, throat pain Mood: Anxiety Family history of migraine or other headache disorder: mother, father, grandparent Pertinent denials include: History of concussion/head injury, Respiratory d/o, Clotting or hematology d/o, Pt reports she started having episodes of convulsions about 2 years ago, she had a syncopal episode as she left the room her mother just in. This was different than her recent convulsions. She has had a number of ER/hospital admissions in the last 2 yrs. In 2022, she had an ER eval w/ ? of non-epileptic convulsions. Then in Oct 2023, pt has a [facility] admission for?vomiting, bloody bowel movements, and?dysuria, hyperthyroidism/Grave's thyrotoxicosis. Pt reports on the 3rd day of that admission, she started having episodes of convulsions. She was started on keppra, but this was stopped prior to hospital discharge as episodes were thought to be non-epileptic. 2 day VEEG w/ 2 push-button events did not show epileptic activity. Brain MRI showed mild left frontal white matter changes, and a pituitary microadenoma. Today, she states the convulsion starts w/ feeling very tired, her body becomes stiff, she urinates on herself, she becomes pale, her mouth foams. Her tells her the episode lasts 2-3 minutes. Denies intraictal tongue biting. Afterwards, she feels shaky, tired, and it takes a few minutes to come to. She is unaware of any triggers for these convulsions. She cannot prevent the convulsion once it starts. She reports she has 4-5 convulsive episodes per month. She does not drive. Pt endorses having had a febrile seizure at age 1. Her 7 yo dtr has seizure since age 3-4 yo- similar to hers. Dtr was born premature at 31 weeks. Dtr is f/b [facility] pedi-neurology. Headache questionnaire:? Typical headache characteristics: Prodrome symptoms: Unsure Aura: Blurry vision, sees balck lines lines, phosphorescent vision, vision loss Pain intensity: Sever Location, quality, characteristics: Pounding pain in bilateral retro-orbital, temporal, top of head regions Associated symptoms? Photophobia, Phonophobia, osmophobia, nausea, dizziness, droopy eyelid, altered facial sensation, fatigue, foot numbness, activity intolerance. Postdrome: Unsure Triggers: Unsure. Standing up or bending over aggravates the headache Time of day: No specific time of day Duration and Frequency: daily continuous How does headache impact your life? Makes it difficult to do her daily activities. Current acute medication use/interventions: Tylenol 1000mg q 6 hrs., Prior to would use Ibuprofen 800mh prn Current preventative medication use: Propranolol- for hyperthyroidism tx. Non-pharmacological interventions: Rest Lifestyle considerations: Sleep routine: Bedtime: 12am Wake-up time: 6am Sleep difficulties: Endorses: Snoring, difficulty initiating and maintaining sleep, nocturia, , Fatigue, Restless sleep, Leg Cramps. Caffeine use: causal Substance use: Denies Tobacco, Marijuana, Alcohol use Family planning: Currently [facility] Medical History Graves disease Graves' eye disease Pituitary microadenoma Psychogenic nonepileptic seizure Hyperthyroidism Essential hypertension Breast pain, left Overweight (BMI 25.0-29.9) Heavy menses Chronic constipation GERD without esophagitis Anemia HTN (hypertension) Anxiety Surgical History History of tubal ligation H/O tooth extraction (~12/10/22) H/O: Family History Paternal Aunt Breast cancer, Onset Age: 35 Maternal Aunt Breast cancer, Onset Age: 40 Other Diabetes High cholesterol Hypertension Social History Housing: House Alcohol intake: never Patient Tobacco Use Status: Never used Tobacco Tobacco use type: Cigarette e-Cigarette/Vaping Use: Never Used Second Hand Smoke Exposure: No service: No Current occupational status: unemployed Cognitive needs: No Hearing needs: No Vision needs: Yes (Glasses) Physical Exam Vital Signs: Last Vital Signs Pulse 80 03/27/25 08:19 BP 124/70 03/27/25 08:19 Pulse Ox 99 03/27/25 08:19 Oxygen Delivery Method Room Air 03/27/25 08:19 BMI result Body Mass Index 34.2 Const General: cooperative and no acute distress Orientation/consciousness: patient oriented x3 Resp Effort & Inspection: normal respiratory effort and able to speak in complete sentences Neuro General: patient oriented x3 Cranial nerves: Yes CN's II-XII intact bilaterally Cognition (Neuro): normal cognition Gait exam (Neuro): Normal gait present Motor exam (neuro): 5/5 motor strength present throughout Psych Appearance: grossly normal Mental Status: mental status grossly normal Speech and movement: Normal speech and movement present Affect: normal affect Attitude: cooperative Telehealth Telehealth Telehealth Platform: [employer] Location of provider rendering services: practice address Location of patient: address on file Patient Identification confirmed using: Name, : Yes Telehealth method: video Patient verbally consented to treatment: Yes Patient verbally consented to billing insurance company: Yes Patient informed of any privacy concerns related to visit: Yes Minutes spent on Phone/Video with Pt.: 21 Assessment & Plan Assessment & Plan (1) Migraine with aura: Code(s): G43.109 - Migraine with aura, not intractable, without status migrainosus Category: Medical Qualifiers: Intractability: not intractable Status migrainosus presence: without status migrainosus Qualified Code(s): G43.109 - Migraine with aura, not intractable, without status migrainosus (2) Snoring: Code(s): R06.83 - Snoring Category: Medical (3) Sleep difficulties: Code(s): G47.9 - Sleep disorder, unspecified Category: Medical (4) Excessive daytime sleepiness: Comment: ESS 10 Code(s): G47.19 - Other hypersomnia Category: Medical (5) Benign paroxysmal vertigo, unspecified ear: Code(s): H81.10 - Benign paroxysmal vertigo, unspecified ear Category: Medical Qualifiers: Laterality: unspecified laterality Qualified Code(s): H81.10 - Benign paroxysmal vertigo, unspecified ear (6) Anxiety: Code(s): F41.9 - Anxiety disorder, unspecified Category: Medical (7) 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 - Conversion disorder with seizures or convulsions Category: Medical (8) Panic attacks: Code(s): F41.0 - Panic disorder [episodic paroxysmal anxiety] Category: Medical Plan For compulsions induced by anxiety and stressful events: Reviewed likely diagnosis of nonepileptic convulsive episodes. Discussed treatment options, and patient is amenable to having an evaluation at a functional neurological disorder clinic, such as at [facility] Thus referral initiated. In the meantime, patient advised to continue to abstain from driving, as well as to avoid any solo tub bathing, other solo water activities, operating heavy machinery, and engaging in high-risk activity. For hypersomnia: Patient again advised to undergo HST to assess for sleep apnea. For positional vertigo: We will initiate order for vestibular PT. ? For overall headache management: Optimize good self-care, including but not limited to maintaining a healthy diet, adequate fluid intake, adequate sleep, and engaging in regular physical activity. Track headaches. ? For acute headache treatment: * Trial Naratriptan 2.5mg tab, 1/2 - 1 tab (1.25-2.5mg) at onset of headache, may repeat in 4 hours. Max of 2 tabs (5mg) per 24 hours. May adjunct with OTC Tylenol 650mg every 4 hours, Ibuprofen (liquigel) 600mg every 6 hours, or Naproxen (liquigel) 440mg every 12 hrs as needed. Potential adverse effects of triptans, include but are not limited to nausea, fatigue, chest tightness/tingling (usually passes within a few minutes), medication overuse headaches. * Benadryl and Metoclopramide as needed (may help headache itself). * Previous acute migraine treatment trials: Sumatriptan caused bothersome palpitations. * Acute migraine medication contraindications: None at this time * Future considerations: Ubrelvy or Nurtec. ? For headache prevention medication: * Start riboflavin 400 mg daily in the morning. * Possible side effects, include but are not limited to: Bright yellow urine, GI upset. * Continue Magnesium 400mg daily at bedtime * Continue Propranolol 15 mg twice a day- ordered initially for hyperthyroidism. * Previous migraine prevention medication trials: None other * Migraine prevention medication contraindications: None at this time. Orders: Orders RT home sleep study 03/27/25 G47.19 - Other hypersomnia, G47.9 - Sleep disorder, unspecified, R06.83 - Snoring PT Evaluation and Treatment 03/27/25 H81.10 - Benign paroxysmal vertigo, unspecified ear Referrals Neurology Referral F41.0 - Panic disorder [episodic paroxysmal anxiety], F41.9 - Anxiety disorder, unspecified, F44.5 - Conversion disorder with seizures or convulsions Medications: New naratriptan take 1/2 - 1 tab at onset of headache; if no relief may repeat 1 tab after at least 4 hrs; max = 2 tabs/24 hrs orally PRN; 12 tabs 6RF migraine headache 30 days magnesium oxide may hold for loose stools 400 mg PO BEDTIME 30 tabs 6RF 30 days riboflavin (vitamin B2) 400 mg PO DAILY 30 tabs 6RF 30 days Coding Level of Care Code Est Pt Level 4 (23349) Diagnoses Migraine with aura and without status migrainosus, not intractable G43.109 Intractability: not intractable Status migrainosus presence: without status migrainosus Snoring R06.83 Sleep difficulties G47.9 Excessive daytime sleepiness G47.19 Benign paroxysmal vertigo, unspecified laterality H81.10 Laterality: unspecified laterality Anxiety F41.9 Psychogenic nonepileptic seizure F44.5 Panic attacks F41.0
[2025-03-27 08:19] VITALS: BP 124/70; PULSE 80; O2SAT 99; BMI 34.2
== END 2025-03-27 09:11 | disposition home or self-care (01) ==
LOC: HO.HSMS 08:08
PROVIDERS: PCP Internal Medicine; Visit Provider Nurse Practitioner Family
DX: G43.109 Migraine with aura, not intractable, without status migrainosus (principal); R06.83 Snoring; G47.9 Sleep disorder, unspecified; G47.19 Other hypersomnia; H81.10 Benign paroxysmal vertigo, unspecified ear; F41.9 Anxiety disorder, unspecified; F44.5 Conversion disorder with seizures or convulsions; F41.0 Panic disorder [episodic paroxysmal anxiety]
CPT/HCPCS: 99214

== ENCOUNTER → 2025-03-27 08:08 | Outpatient (BNVA) | payer OTHER, SELFPAY | PROVIDERS: PCP Internal Medicine; Visit Provider Nurse Practitioner Family | DX: G43.109 Migraine with aura, not intractable, without status migrainosus (principal); R06.83 Snoring; G47.9 Sleep disorder, unspecified; G47.19 Other hypersomnia; H81.10 Benign paroxysmal vertigo, unspecified ear; F41.9 Anxiety disorder, unspecified; F44.5 Conversion disorder with seizures or convulsions; F41.0 Panic disorder [episodic paroxysmal anxiety] | CPT/HCPCS: 99212 ==

== ENCOUNTER → 2025-04-09 12:16 | Outpatient (REF) | payer OTHER, SELFPAY ==
--- NOTE | 2025-04-09 12:21 | CA_ITS ---
Transthoracic Echocardiogram Patient (Last, First, Middle): Nicole Nelson, Gender: Female Date of : 1995 Age: 30 Procedure Date: 04/09/2025 Procedure Type: Transthoracic Echocardiogram Location: OP Height: 154.94 cm Weight: 79.38 kg BSA: 1.78 m2 Heart Rate: bpm BP: 124 / 70 mmHg [employer] Specialist: TO/RC Referring MD: Vlad Palomares MD Internet Database Specialist: Jude Morel MD Symptoms: R00.2 - Palpitations Study Quality: Adequate w contrast ECG Rhythm: Sinus Conclusions: - Essentially normal study Findings Procedure Information Contrast agent, definity, is being given per protocol without apparent complications. Left Ventricle Normal left ventricular size, thickness, and systolic function. The visually estimated ejection fraction is between 60-65%. Spectral Doppler is indicative of a normal filling pattern. Right Ventricle Normal right ventricular cavity size and systolic function. Atria The left atrium is normal in size. Interatrial shunt cannot be excluded. The right atrium is normal in size. Aortic Valve The aortic valve structure and function is likely normal. There is no aortic valve stenosis. There is no aortic valve regurgitation. Mitral Valve Normal mitral valve structure and function. There is trace mitral valve regurgitation. There is no mitral valve stenosis. Pulmonic Valve The pulmonic valve is likely normal. Tricuspid Valve Normal tricuspid valve structure. Tricuspid regurgitation envelope is inadequate for calculation of right ventricular systolic pressure. Normal right atrial pressure. There is no evidence of pulmonary hypertension. Great Vessels All visible segments of the aorta are normal in size. The pulmonary artery was not well visualized. Venous The inferior vena cava is normal in size and collapses greater than 50% with inspiration. Pericardium/Pleural There is no evidence of pericardial effusion. Prior Study Comparison No prior study available for comparison. Measurements 2D Linear Measurements IVSd: 0.91 0.6-0.9/0.6-1.0 cm LVIDd: 4.57 3.9-5.3/4.2-5.9 cm LVIDd Index: 2.57 2.4-3.2/2.2-3.1 cm/m2 LVIDs: 2.94 2.0-3.6 cm LVPWd: 0.83 0.7-1.1 cm LA Diam: 4.00 2.7-3.8/3.0-4.0 cm LAIDs Index: 2.25 1.5-2.3 cm/m2 LV Mass: 161.78 67-162/88-224 g LV Mass Index: 90.89 43-95/49-115 g/m2 LVOT Diam: 1.90 3.0+(-)1.3 cm 2D Systolic Function EF 4C: 58.90 >55% EF 2C: 63.70 >55% EF BiP: 60.60 >55% Mitral Valve MV Pk E: 1.03 MV PK A: 0.91 MV Decel Time: 152.00 E/A: 1.10 E'Lateral: 15.00 E'Medial: 8.49 E/E' Med: 12.10 E/E' Lat: 6.90 PHT: 45.00 MVA PHT: 4.89 Decel Duchesne: 6.76 Aortic Valve AoV Pk Ze: 1.90 AoV Mn Ze: 1.34 AoV VTI: 0.38 AoV Pk Grad: 14.00 Aov Mn Grad: 8.00 CHEMO Cont.VTI: 2.23 LVOT LVOT Pk Ze: 1.50 LVOT Mn Ze: 1.06 LVOT VTI: 0.30 LVOT Pk Grad: 9.00 LVOT Mn Grad: 5.00 LVOT Diam: 1.90 LVOT Area: 2.84 Diastolic Function MV Pk E: 1.03 MV Pk A: 0.91 E/A: 1.10 E'Medial: 8.49 E/E' Med: 12.10 E' Laterial: 15.00 E/E' Lat: 6.90 Right Ventricle TAPSE (mm): 24.30 TVS' Ze: 9.57 Tricuspid Valve RA Press: 3.00 Great Vessels Aorta Sinus of Valsalva: 2.30 2.0-3.5 cm Ao Asc: 2.10 2.1-3.4 cm Pulmonary Valve PV Pk Ze: 1.92 Peak PV Grad: 15.00 Updated in Other Vendor System with Status of Final Jude Morel MD electronically signed on 04/10/2025 11:59:12 AM with status of Final
--- NOTE | 2025-04-09 12:21 | HM_ITS ---
* Total procedure length 30 days. Wear time 3.2 days. * Underlying rhythm is sinus with an average rate of 84/Min. * No significant ectopy, tachy or bradyarrhythmias. * Dizziness, chest pressure in patient diary associated with sinus rhythm. Racing/fast heartbeat associated with mild sinus tachycardia at 115/Min. MTDD
--- OUTSIDE RECORDS SUMMARY | 2025-04-09 12:59 | XMS_ITS | Clinical Summary ---
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
--- OUTSIDE RECORDS SUMMARY | 2025-04-09 12:59 | XMS_ITS | Referral Summary ---
Author Organization [facility] Address [address] [place] [address] Care Team Providers Care Maintenance Technician 2Nd Shift Name Role Phone Patient, Has No Pcp [...] on file Insurance [employer] Care Teams Maintenance Technician 2Nd Shift Relationship Specialty Start Date End Date Patient, Has No Pcp Or Ref DO NOT EDIT THIS RECORD VIA PROVIDER ON THE FLY PCP - General Head Of Stock 11/17/24
--- OUTSIDE RECORDS SUMMARY | 2025-04-09 12:59 | XMS_ITS | Clinical Summary ---
Author Organization [facility] Address [address] [address] Phone Care Team Providers Care Folder Machine Adjuster Name Role Phone Pcp, Unknown Primary Care Provider Unavailabl e Allergies Active Allergy Reactions Criticality Noted Date Comments Amoxicillin 12/19/2022 Amoxicillin-Pot Clavulanate 12/20/19 23 Cyclobenzaprine 12/19/2022 Oxycodone 12/19/2022 Medications No known medications Social History Tobacco Use Types Packs/Day Years Used Date Smoking Tobacco: Never Passive Smoke Exposure: Never Smokeless Tobacco: Never Tobacco Cessation:Counseling Given: Not Answered Alcohol Use Standard Drinks/Week Comments Not Currently 0 (1 standard drink = 0.6 oz pur e alcohol) Education Answer Date Recorded Are you interested in more education? Not on elisa e 01/07/2023 Are you concerned about learning? Not on file 01/07/2023 No 01/07/2023 No 01/07/2023 Digital Access Answer Date Recorded No 02/07/2023 No 02/07/2023 Reliable internet access at home? Not on file 02/07/2023 Device with a working camera? Not on file Intimate Partner Violence Answer Date R ecorded Are you denied basic needs s uch as food, clothing, or medical care? No 11/15/2022 In the past 12 months have y ou been in a relationship with a person who hurts, threatens, or tries to control you? No 11/15/2022 Are you denied basic needs s uch as food, clothing, or medical care? No 11/15/2022 In the past 12 months have y ou been in a relationship with a person who hurts, threatens, or tries to control you? No 11/15/2022 Comments Unknown Sex and Gender Information Value Date Recorded Sex Assigned at Female 11/15/2022 11:38 AM EST Legal Sex Female 10:06 AM EST Gender Identity Female 11/15/2022 11:38 AM EST Sexual Orientation Not on file Last Filed Vital Signs Vital Sign Reading Time Taken Comments Blood Pressure 146/94 12/19/2022 8:25 PM EDT Pulse 105 12/19/2022 8:25 PM EDT Temperature 36.8 C (98.2 F) 12/19/2022 8:25 PM EDT Respiratory Rate 20 12/19/2022 8:25 PM EDT Oxygen Saturation 98% 12/19/2022 8:25 PM EDT Inhaled Oxygen Concentration - - Weight 78 kg (172 lb) 11/15/2022 11:35 AM EST Height 152.4 cm (5') 11/15/2022 11:35 AM EST Body Mass Index 33.59 11/15/2022 11:35 AM EST Plan of Treatment Not on file Medical Devices Not on file Insurance [facility] [employer] Financing [facility] A[facility] ACO Care Teams Folder Machine Adjuster Relationship Specialty Start Date End Date Pcp, Unknown PCP - General 11/15/22 Additional Source Comments The information contained in this document represents components of the legal health record. It is not the complete legal health record.[facility]
== END ==
LOC: HO.CARD 12:16
PROVIDERS: PCP Internal Medicine; Visit Provider Internal Medicine
DX: R00.2 Palpitations (principal); I10 Essential (primary) hypertension; R60.0 Localized edema; F41.9 Anxiety disorder, unspecified; F44.5 Conversion disorder with seizures or convulsions; F41.0 Panic disorder [episodic paroxysmal anxiety]; E05.90 Thyrotoxicosis, unspecified without thyrotoxic crisis or storm; E05.00 Thyrotoxicosis with diffuse goiter without thyrotoxic crisis or storm; E66.3 Overweight; H81.10 Benign paroxysmal vertigo, unspecified ear; R09.81 Nasal congestion; H54.7 Unspecified visual loss; R12 Heartburn; D64.9 Anemia, unspecified; G43.109 Migraine with aura, not intractable, without status migrainosus; H60.502 Unspecified acute noninfective otitis externa, left ear
CPT/HCPCS: 93270; 93306; 99212; Q9957

== ENCOUNTER → 2025-04-09 12:21 | Outpatient (BNV) | payer OTHER, SELFPAY | PROVIDERS: PCP Internal Medicine; Visit Provider Internal Medicine Cardiovascular Disease | DX: R00.2 Palpitations (principal) | CPT/HCPCS: 93306 ==

== ENCOUNTER 2025-04-09 15:29 | Outpatient (AMB) | payer OTHER, SELFPAY ==
[2025-04-09 15:32] VITALS: BP 140/92; PULSE 82; RESP 18; TEMP 36.2; O2SAT 98; BMI 33.6
--- NOTE | 2025-04-09 15:32 | MHC.PC.OV ---
Vital Signs 04/09/25 15:32 Height 5 ft Weight 172 lb 2 oz BMI 33.6 BP 140/92 H Blood Pressure Location Lt brachial Position Sitting Respiration 18 Pulse 82 Pulse Source Pulse Oximeter Temp 97.1 F Temp Source Temporal Artery Scan Pulse Oximetry (%) 98 Oxygen Delivery Method Room Air Intake Visit Reasons: vertigo/htn/migraines Environmental Journalist Required: Yes Environmental Journalist Language: Echocardiograph Tech Name: [id number] Accompanied by: Self / Same As Patient Allergies morphine Allergy (Severe, Verified 05/02/25 07:36) Vomiting chlorthalidone Allergy (Intermediate, Verified 05/02/25 07:36) Chest Pain glucagon Allergy (Intermediate, Verified 05/02/25 07:36) Unknown guaifenesin (From Mucinex) Allergy (Intermediate, Verified 05/02/25 07:36) Unknown latex Allergy (Intermediate, Verified 05/02/25 07:36) Rash amoxicillin Allergy (Mild, Verified 05/02/25 07:36) Rash clavulanic acid (From Augmentin) Allergy (Unknown, Verified 05/02/25 07:36) Unknown cyclobenzaprine (From Flexeril) Allergy (Verified 05/02/25 07:36) Palpitations escitalopram Allergy (Verified 05/02/25 07:36) Palpitations hydralazine Allergy (Verified 05/02/25 07:36) Nausea and Vomiting lorazepam (From Ativan) Allergy (Verified 05/02/25 07:36) Palpitations nifedipine Allergy (Intermediate, Uncoded 05/02/25 07:36) Unknown Medication List - Last Reconciled 04/09/25 by KALYAN Espinal amlodipine 10 mg PO DAILY 90 days diphenhydramine HCl (Benadryl) 25 mg PO TID PRN 30 days lidocaine 5% 1 patch topical DAILY miscellaneous medical supply (Blood Pressure Cuff) As directed naratriptan take 1/2 - 1 tab at onset of headache; if no relief may repeat 1 tab after at least 4 hrs; max = 2 tabs/24 hrs orally PRN; 30 days propranolol 15 mg (1.5 x 10 mg) PO BID 90 days riboflavin (vitamin B2) 400 mg PO DAILY 30 days triamcinolone acetonide 2 sprays intranasal BEDTIME Tobacco use date assessed: 04/09/25 Dental Screening Dental Screen Date: 04/09/25 Did you have a dental visit in the last 12 months?: Yes Did you have a dental problem in the last 6 months where you did not have access to dental care?: No Was dental information given to patient?: Patient has dentist HPI vertigo/htn/migraines HPI Details The patient is Portuguese-speaking. Environmental Journalist via iPad utilized. The patient is a 30-year-old female presenting with hypertension, dizziness, headaches, right foot swelling, nasal discharge, and hair loss. The patient reports a history of hypertension with recent blood pressure readings around 140/90 mmHg, which is higher than her previous readings of 107/60 mmHg. She has been compliant with her antihypertensive medication, amlodipine, but notes that anxiety and lack of sleep may contribute to elevated readings. Dizziness has been a persistent issue, though it has improved slightly. The patient experiences frequent headaches, which she describes as occurring all the time. The patient has noticed swelling in her right foot, which becomes more pronounced at night and is accompanied by numbness and warmth. She reports that the swelling began after her birthday on [birth year], and she associates it with prolonged sitting or inactivity. Nasal discharge has been present for the past three weeks, characterized by clear liquid from the left nostril and occasional yellow drainage from the right. The patient denies any associated sore throat or sneezing, and she has a history of mild allergies. The patient reports significant hair loss, particularly from the front part of her scalp, which she attributes to possible thyroid issues. [facility] Medical History (Updated 05/05/25 @ 01:36 by KALYAN Espinal) Flank pain Graves disease Graves' eye disease Pituitary microadenoma Psychogenic nonepileptic seizure Hyperthyroidism Essential hypertension Breast pain, left Overweight (BMI 25.0-29.9) Heavy menses Chronic constipation GERD without esophagitis Anemia HTN (hypertension) Anxiety Surgical History History of tubal ligation H/O tooth extraction (~12/10/22) H/O: Family History Paternal Aunt Breast cancer, Onset Age: 35 Maternal Aunt Breast cancer, Onset Age: 40 Other Diabetes High cholesterol Hypertension Social History Housing: House Alcohol intake: never Patient Tobacco Use Status: Never used Tobacco Tobacco use type: Cigarette e-Cigarette/Vaping Use: Never Used Second Hand Smoke Exposure: No service: No Current occupational status: unemployed Cognitive needs: No Hearing needs: No Vision needs: Yes (Glasses) Questionnaire PHQ-9 Over the last 2 weeks, how often have you been bothered by any of the following problems? 1. Little interest or pleasure in doing things: not at all 2. Feeling down, depressed, or hopeless: not at all 3. Trouble falling or staying asleep, or sleeping too much: not at all 4. Feeling tired or having little energy: not at all 5. Poor appetite or overeating: several days 6. Feeling bad about yourself - or that you are a failure or have let yourself or your family down: not at all 7. Trouble concentrating on things, such as reading the newspaper or watching television: not at all 8. Moving or speaking so slowly that other people could have noticed. Or the opposite - being so fidgety or restless that you have been moving around a lot more than usual: not at all 9. Thoughts that you would be better off or of hurting yourself in some way: not at all Total score: 1 Source: Developed by Drs. Fabio Johnson, Trinity Anand, Neymar Peterson and colleagues, with an educational sherley from [employer]. Thrive Questionnaire Date Thrive assessed: 04/09/25 I am a: Patient What is your living situation today?: I have a steady place to live Within the past 12 months, did the food you bought not last and you didn't have the money to get more?: Never true Within the past 12 months, did you worry whether your food would run out before you got money to buy more?: Never true Do you have trouble paying for medicines?: No Do you have trouble getting transportation to medical appointments?: No Do you have trouble paying your heating and electricity bill?: No Do you have trouble taking care of your child, family member or friend?: No Do you have trouble with day-to-day activities such as bathing, preparing meals, shopping, managing finances, etc.?: No Are you currently unemployed and looking for a job?: Yes Are you interested in more education?: No Please select the resources that you would like help with: None Currently or been in a relationship where the following occur: No concerns reported THRIVE Score: 0 AUDIT C Alcohol Use Questionnaire (AUDIT-C) 1. How often do you have a drink containing alcohol?: Never 3. How often do you have six or more drinks on one occasion?: Never Total Score: 0 YULIYA-7 AMB Questionnaire YULIYA-7 Date YULIYA - 7 assessed: 04/09/25 Feeling nervous, anxious, or on edge: 0 = Not at all Not being able to stop or control worryin = Not at all Worrying too much about different things: 0 = Not at all Trouble relaxin = Not at all Being so restless that it is hard to sit still: 0 = Not at all Becoming easily annoyed or irritable: 0 = Not at all Feeling afraid as if something awful might happen: 0 = Not at all Total YULIYA-7 score (0-4 normal; 5-9 mild; 10-14 moderate; 15-21 severe): 0 Source: Developed by Drs. Fabio Johnson, Trinity Anand, Neymar Peterson and colleagues, with an educational sherley from [employer]. Review of Systems Const Reports headache(s) and Reports other (hair loss) Eyes Denies loss of vision ENT Denies vertigo, Reports dizziness, Reports headache(s), Reports nasal congestion, Reports nasal discharge and Denies sore throat Card Denies chest pain, Reports leg edema (particular right leg/foot) and Denies lightheadedness Resp Denies cough, Denies hemoptysis and Denies wheezing GI Denies abdominal pain, Denies melena, Denies constipation, Denies diarrhea and Denies vomiting Denies urinary frequency, Denies dysuria and Denies urinary urgency Musc Denies arthralgias, Denies joint swelling, Denies numbness and Denies tingling Neuro Denies Abnormal speech present, Denies behavioral changes, Denies vertigo, Reports dizziness, Reports headache(s), Denies loss of vision, Denies memory loss, Denies numbness and Denies tingling Psych Reports anxiety, Denies behavioral changes, Denies depression, Denies memory loss and Denies panic attacks Endo Reports other (hair loss) Vinayak/Lymph Denies easy bleeding and Denies easy bruising Aller/Immun Denies wheezing Physical exam (Primary Care) Vital Signs: Last Vital Signs Temp 97.1 F 04/09/25 15:32 Pulse 82 04/09/25 15:32 Resp 18 04/09/25 15:32 BP 140/92 H 04/09/25 15:32 Pulse Ox 98 04/09/25 15:32 Oxygen Delivery Method Room Air 04/09/25 15:32 BMI result Body Mass Index 33.6 Tobacco/Smoking Status: Tobacco use Status Tobacco use date assessed 04/09/25 04/09/25 15:43 Patient Tobacco Use Status Never used Tobacco 04/09/25 15:43 Tobacco use type Cigarette 04/09/25 15:43 e-Cigarette/Vaping Use Never Used 04/09/25 15:43 PHQ-9: PHQ-9 Score PHQ-9: Total score 1 04/09/25 16:00 Thrive Assessment: Date of Thrive Assessment Date Thrive assessed 04/09/25 04/09/25 15:43 Currently or been in a relationship where the following occur: No concerns reported Const General: healthy appearing, no acute distress, alert and awake Nutritional Appearance: well nourished Orientation/consciousness: oriented to person, oriented to place and oriented to time HENMT Head: No scalp lesion, No scalp tenderness and Yes other (no obvious hair loss) Ears: Abnormal EAC present erythema on the left, edema on the left and EAC tenderness on the left General nose exam: Abnormal mucous membranes and turbinates present boggy bilateral and erythematous bilateral and Nasal discharge present purulent on the right Eyes Conjunctivae: conjunctivae normal Sclerae: sclerae normal Pupils: Equal, round and reactive pupils present Neck Neck: Yes no lymphadenopathy and Yes no JVD Thyroid: Thyroid normal Carotids: no bruits Resp Effort & Inspection: normal respiratory effort and not tachypneic Auscultation: no crackles, no rales, no rhonchi and no wheezes Cardio Rate: regular rate Rhythm: regular rhythm Heart sounds: no murmurs and normal S1 and S2 GI Palpation (GI): Soft to palpation, nontender, no hepatomegaly and no splenomegaly Auscultation: normal bowel sounds Skin General skin exam: no rashes or lesions noted and dry skin Neuro General: oriented to person, oriented to place and oriented to time Cranial nerves: Yes Equal, round and reactive pupils present Speech: No Abnormal speech present Gait exam (Neuro): Normal gait present Motor exam (neuro): no tremor noted Extrem Right upper extremity: full ROM Left upper extremity: full ROM Right lower extremity: full ROM, lower leg Details: non-pitting edema Details: 1+ and foot Details: edema Location: of the dorsal foot; no edema Left lower extremity: full ROM; no edema Psych Mental Status: mental status grossly normal Speech and movement: Normal speech and movement present Affect: normal affect Attitude: cooperative Thought process: Normal thought process present Coding Level of Care Code Est Pt Level 4 (43340) Diagnoses Primary hypertension I10 Hypertension type: unspecified Anxiety F41.9 Psychogenic nonepileptic seizure F44.5 Panic attacks F41.0 Hyperthyroidism E05.90 Graves disease E05.00 Overweight (BMI 25.0-29.9) E66.3 Benign paroxysmal vertigo, unspecified laterality H81.10 Laterality: unspecified laterality Nasal congestion R09.81 Vision impairment H54.7 Heartburn R12 Anemia, unspecified type D64.9 Anemia type: unspecified type Migraine with aura and without status migrainosus, not intractable G43.109 Status migrainosus presence: without status migrainosus Intractability: not intractable Apneic spell R06.81 Snoring R06.83 Sleep difficulties G47.9 Excessive daytime sleepiness G47.19 Swelling of right foot M79.89 Acute otitis externa of left ear, unspecified type H60.502 Otitis externa type: unspecified type Laterality: left Chronicity: acute Time Spent (min) 41 Assessment & Plan Assessment & Plan (1) HTN (hypertension): Code(s): I10 - Essential (primary) hypertension Category: Medical Qualifiers: Hypertension type: unspecified Qualified Code(s): I10 - Essential (primary) hypertension (2) Anxiety: Code(s): F41.9 - Anxiety disorder, unspecified Category: Medical (3) 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 - Conversion disorder with seizures or convulsions Category: Medical (4) Panic attacks: Code(s): F41.0 - Panic disorder [episodic paroxysmal anxiety] Category: Medical (5) Hyperthyroidism: Code(s): E05.90 - Thyrotoxicosis, unspecified without thyrotoxic crisis or storm Category: Medical (6) Graves disease: Code(s): E05.00 - Thyrotoxicosis with diffuse goiter without thyrotoxic crisis or storm Category: Medical (7) Overweight (BMI 25.0-29.9): Code(s): E66.3 - Overweight Category: Medical (8) Benign paroxysmal vertigo, unspecified ear: Code(s): H81.10 - Benign paroxysmal vertigo, unspecified ear Category: Medical Qualifiers: Laterality: unspecified laterality Qualified Code(s): H81.10 - Benign paroxysmal vertigo, unspecified ear (9) Nasal congestion: Code(s): R09.81 - Nasal congestion Category: Medical (10) Vision impairment: Code(s): H54.7 - Unspecified visual loss Category: Medical (11) Heartburn: Code(s): R12 - Heartburn Category: Medical (12) Anemia: Code(s): D64.9 - Anemia, unspecified Category: Medical Qualifiers: Anemia type: unspecified type Qualified Code(s): D64.9 - Anemia, unspecified (13) Migraine with aura: Code(s): G43.109 - Migraine with aura, not intractable, without status migrainosus Category: Medical Qualifiers: Status migrainosus presence: without status migrainosus Intractability: not intractable Qualified Code(s): G43.109 - Migraine with aura, not intractable, without status migrainosus (14) Apneic spell: Code(s): R06.81 - Apnea, not elsewhere classified Category: Medical (15) Snoring: Code(s): R06.83 - Snoring Category: Medical (16) Sleep difficulties: Code(s): G47.9 - Sleep disorder, unspecified Category: Medical (17) Excessive daytime sleepiness: Comment: ESS 10 Code(s): G47.19 - Other hypersomnia Category: Medical (18) Swelling of right foot: Code(s): M79.89 - Other specified soft tissue disorders Category: Medical (19) Otitis externa: Code(s): H60.90 - Unspecified otitis externa, unspecified ear Category: Medical Qualifiers: Otitis externa type: unspecified type Laterality: left Chronicity: acute Qualified Code(s): H60.502 - Unspecified acute noninfective otitis externa, left ear Plan The plan includes obtaining blood work to assess for any underlying conditions contributing to the patient's symptoms, particularly focusing on thyroid function due to reported hair loss. The patient is advised to monitor her blood pressure regularly and continue taking amlodipine as prescribed. For the right foot swelling, the patient should observe for any changes such as increased redness or pain, which may necessitate further evaluation with a Doppler ultrasound to rule out deep vein thrombosis. The patient is encouraged to reduce salt intake and maintain a balanced diet to help manage her blood pressure and swelling. For nasal discharge, the patient is prescribed azithromycin and advised to use nasal spray to alleviate symptoms. Follow-up with neurology is planned to reassess headache management, and the patient is advised to report any worsening symptoms. The patient to increase fluids to help prevent dizziness, lab studies ordered to evaluate anemia studies. Patient encouraged to complete maite. Patient was informed and verbally consented to the use of an ambient scribe for clinic note documentation during this visit. Orders: Orders B Type Natriuretic Peptide 04/09/25 R60.0 - Localized edema Medications: New ofloxacin 0.3% 10 drps otic (ears) BID 10 mL 0RF 14 days azithromycin For 250 mg dose pack: take 500 mg today (day 1), then 250 mg for 4 days (days 2-5) PO 6 tabs 0RF Patient Instructions: - Monitor blood pressure regularly and take amlodipine as prescribed. - Observe right foot for any changes such as increased redness or pain. - Reduce salt intake and maintain a balanced diet. - Use azithromycin and nasal spray as directed for nasal discharge. - Follow up with neurology for headache management.
== END 2025-04-09 16:38 | disposition home or self-care (01) ==
LOC: HO.HMCH 15:29
PROVIDERS: PCP Internal Medicine
DX: I10 Essential (primary) hypertension (principal); F41.9 Anxiety disorder, unspecified; F44.5 Conversion disorder with seizures or convulsions; F41.0 Panic disorder [episodic paroxysmal anxiety]; E05.90 Thyrotoxicosis, unspecified without thyrotoxic crisis or storm; E05.00 Thyrotoxicosis with diffuse goiter without thyrotoxic crisis or storm; E66.3 Overweight; H81.10 Benign paroxysmal vertigo, unspecified ear; R09.81 Nasal congestion; H54.7 Unspecified visual loss; R12 Heartburn; D64.9 Anemia, unspecified; G43.109 Migraine with aura, not intractable, without status migrainosus; R06.81 Apnea, not elsewhere classified; R06.83 Snoring; G47.9 Sleep disorder, unspecified; G47.19 Other hypersomnia; M79.89 Other specified soft tissue disorders; H60.502 Unspecified acute noninfective otitis externa, left ear

== ENCOUNTER 2025-04-17 08:14 | Emergency (ER) | payer OTHER, SELFPAY ==
--- NOTE | ~2025-04-17 | CT_ITS ---
EXAMINATION: CT ABDOMEN AND PELVIS WITH CONTRAST CLINICAL INFORMATION: Diffusely tender abdomen: bilateral lower quadrant pain. Rule out SBO. 30-year-old female. COMPARISON: 01/31/2023. TECHNIQUE: Multidetector volumetric images were obtained from the superior aspect of the liver through the pubic symphysis following administration 85 mL of Omnipaque 350 intravenous contrast. Sagittal and coronal reformatted images were obtained on the technologist's workstation. Oral contrast: Yes This CT examination was performed using dose optimization techniques as appropriate, variously including the following: *Automated exposure control *Adjustment of mA and/or kV according to patient size (this includes techniques or standardized protocols for targeted exams where dose is matched to indication/reason for exam; i.e. extremities or head) *Use of iterative reconstruction technique FINDINGS: LUNG BASES: The visualized lung bases are unremarkable. LIVER, GALLBLADDER, AND BILIARY TREE: The liver is normal in size, shape, and attenuation. No focal hepatic lesion or biliary ductal dilatation is present. The gallbladder is unremarkable with no evidence of radiopaque gallstones, gallbladder wall thickening, or obvious pericholecystic inflammatory changes. PANCREAS: Unremarkable. SPLEEN: Unremarkable. ADRENAL GLANDS: Unremarkable. KIDNEYS AND URETERS: The kidneys are normal in appearance bilaterally. No hydronephrosis, cyst, mass, or other abnormality. There is a 3 mm nonobstructing calculus in the right kidney upper pole. There is no hydroureter on either side. BLADDER: Well-distended and normal. GASTROINTESTINAL TRACT: The small and large bowel are unremarkable. The appendix is unremarkable. ABDOMINAL WALL: No significant hernia is appreciated. LYMPH NODES: There is no abnormal lymphadenopathy. VASCULAR: Unremarkable. PELVIC VISCERA: There is an arcuate type uterus. There are no adnexal masses or abnormalities. OSSEOUS STRUCTURES: Normal. No suspicious lytic or blastic bone lesions. CT/CT abdomen pelvis w IV con IMPRESSION: 1. No acute findings in the abdomen or pelvis. 2. There is a 3 mm nonobstructing calculus in the right kidney upper pole. Electronically signed by: Marco A Lucio MD 04/17/2025 02:45 PM EDT
--- NOTE | ~2025-04-17 | XR_ITS ---
EXAMINATION: XR CHEST 2 VIEWS HISTORY: epigastric pain COMPARISON: Comparison is made with the prior examination dated 02/25/2025. FINDINGS: PA and lateral views of the chest are submitted. The lungs are expanded and clear. There is no pleural effusion, pneumothorax, or pulmonary vascular congestion. The heart is normal in size. The bones are intact. XR/XR chest 2V IMPRESSION: No acute cardiopulmonary abnormality. Electronically signed by: Fabio Montalvo MD 04/17/2025 11:41 AM EDT
--- NOTE | 2025-04-17 08:15 | ECG_ITS ---
Test Reason : CHEST PAIN Blood Pressure : */* mmHG Vent. Rate : 78 BPM Atrial Rate : 78 BPM P-R Int : 138 ms QRS Dur : 104 ms QT Int : 358 ms P-R-T Axes : 42 29 26 degrees QTcB Int : 408 ms Normal sinus rhythm Minimal voltage criteria for LVH, may be normal variant ( R in aVL ) Borderline ECG When compared with ECG of 27-Dec-2024 08:11, No significant change was found Referred By: Generic ED Physician Electronically Signed By: RINA BROWN
[2025-04-17 08:25] VITALS: BP 132/86; PULSE 88; RESP 18; TEMP 36.6; O2SAT 99; BMI 34.0
[2025-04-17 08:39] LABS: MANUAL DIFF FLAG NO
[2025-04-17 08:41] LABS: Hematocrit 34.9 % (37.0-47.0); Hemoglobin 11.1 g/dl (12.0-16.0); Imm Gran Abs Auto 0.04 X10*3/uL (0.00-0.03); Imm Gran Pct Auto 0.4 % (0.0-0.4); Lymphocytes Absolute Auto 1.9 X10*3/uL (1.2-4.9); Mean Corpuscular HGB Conc 31.8 g/dl (31.0-35.0); Mean Corpuscular Hemoglobin 22.1 pg (27.0-33.0); Mean Corpuscular Volume 69.4 fL (80.0-98.0); NRBC Abs Auto 0.000 X10*3/uL (0.0-0.012); NRBC Pct Auto 0.0 /100WBC (0.0-0.2); Platelet Count 342 X10*3/uL (160-400); Red Blood Count 5.03 X10*6/uL (4.20-5.50); White Blood Count 10.1 X10*3/uL (4.8-10.8)
[2025-04-17 08:53] LABS: Anion Gap 13 (12-20); Blood Urea Nitrogen 10 mg/dL (9-16); Calcium 9.8 mg/dL (8.4-10.2); Carbon Dioxide 26 mmol/L (22-29); Chloride 104 mmol/L (96-108); Creatinine Clr Calc Pharmacy 120.2; Estimated Glomerular Filt Rate > 60; Potassium 4.2 mmol/L (3.3-5.1); Sodium 139 mmol/L (135-145)
--- OUTSIDE RECORDS SUMMARY | 2025-04-17 10:32 | XMS_ITS | Clinical Summary ---
Author Organization [facility] Address [address] [address] Phone Care Team Providers Care Intensive Care Unit Registered Nurse Name Role Phone Pcp, Unknown Primary Care [...] file Medical Devices Not on file Insurance [facility] [employer] [facility] [employer] Care Teams Intensive Care Unit Registered Nurse Relationship Specialty Start Date End Date Pcp, Unknown PCP - General 11/15/22 Additional Source Comments The information contained in this document represents components of the legal health record. It is not the complete legal health record.[facility]
--- OUTSIDE RECORDS SUMMARY | 2025-04-17 10:32 | XMS_ITS | Referral Summary ---
Author Organization [facility] Address [address] [place] [address] Care Team Providers Care Ob/Gyn Nurse Name Role Phone Patient, Has No Pcp [...] Plan of Treatment Not on file Insurance [facility] MEDICAID Care Teams Ob/Gyn Nurse Relationship Specialty Start Date End Date Patient, Has No Pcp Or Ref DO NOT EDIT THIS RECORD VIA PROVIDER ON THE FLY PCP - General Recruit Instructor 11/17/24
--- OUTSIDE RECORDS SUMMARY | 2025-04-17 10:32 | XMS_ITS | Clinical Summary ---
Author Organization 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
--- NOTE | 2025-04-17 11:01 | ED.GENADULT ---
HPI - General Adult General Chief complaint: General Medical Stated complaint: dizzy chest pain Time Seen by Provider: 04/17/25 10:53 Source: patient Mode of arrival: ambulatory Limitations: no limitations History of Present Illness ED Provider: Frances Perry PA-C HPI narrative: 30-year-old female with past medical history significant for 3 prior C-sections as well as esophageal reflux and anxiety presenting to the emergency department today for evaluation of epigastric pain and lower abdominal discomfort. Patient states she has been on ranitidine for several years now managed by her PCP. She has never been referred to a coin machine operator and has never had an endoscopy done. She is to take omeprazole in the past but uncertain why she has discontinued it. Since yesterday she has had epigastric discomfort that feels like her typical heartburn however it is unrelieved by both [id number] Maalox as well as [id number] Tums it is a dull ache that does wax and wane goes under her epigastric region no radiation otherwise. She denies feeling short of breath and has not had any coughing. Denies any fevers chills but does feel like some sweats every now and then. She is not sure if this isn't from the pain or not. Starting 2 days ago patient has had brown loose stools for what she describes as diarrhea. This is not typical for her but she reports that typically she has a bowel movement that is more solid on a daily basis. She reports no tenesmus or pain with defecation however she does feel like her abdomen is distended more so than usual. Slightly nauseous but no vomiting. Any time that she tries to eat it does make the pain worse in her lower and upper epigastric region. She has more pain in her lower quadrants right now then she does not epigastric region. She is without any travel or known sick contacts. She denies any rashes. She denies chance of with history of tubal ligation. She is not having painful urination or urgency. Denies any associated back pain. No falls or trauma. Related Data Previous Rx's ?Medication ?Instructions ?Recorded miscellaneous medical supply #1 ea 03/30/23 (Blood Pressure Cuff) diphenhydramine HCl 25 mg capsule 25 mg PO TID PRN allergic reaction 05/07/24 (Benadryl) or migraine headache 30 days #30 caps amlodipine 10 mg tablet 10 mg PO DAILY 90 days #90 tabs 10/14/24 propranolol 10 mg tablet 15 mg (1.5 x 10 mg) PO BID 90 days 10/14/24 #270 tabs triamcinolone acetonide 55 mcg 2 spray intranasal BEDTIME #16.9 mL 01/01/25 nasal spray aerosol lidocaine 5 % topical patch 1 patch topical DAILY #15 ea 02/25/25 naratriptan 2.5 mg tablet See Rx Instructions PO .COMPLEX 03/27/25 PRN migraine headache 30 days #12 tabs riboflavin (vitamin B2) 400 mg 400 mg PO DAILY 30 days #30 tabs 03/27/25 tablet azithromycin 250 mg tablet See Rx Instructions PO .COMPLEX #6 04/09/25 tabs ofloxacin 0.3 % ear drops 10 drp otic (ears) BID 14 days #10 04/09/25 mL nitrofurantoin 100 mg PO Q12H 5 days #10 caps 04/17/25 monohydrate/macrocrystals 100 mg capsule (Macrobid) sucralfate 1 gram tablet 1 g PO Q6H 14 days #56 tabs 04/17/25 Allergies Allergy/AdvReac Type Severity Reaction Status Date / Time morphine Allergy Severe Vomiting Verified 04/17/25 08:26 chlorthalidone Allergy Intermediate Chest Pain Verified 04/17/25 08:26 glucagon Allergy Intermediate Unknown Verified 04/17/25 08:26 guaifenesin (From Mucinex) Allergy Intermediate Unknown Verified 04/17/25 08:26 latex Allergy Intermediate Rash Verified 04/17/25 08:26 amoxicillin Allergy Mild Rash Verified 04/17/25 08:26 clavulanic acid (From Allergy Unknown Unknown Verified 04/17/25 08:26 Augmentin) cyclobenzaprine (From Allergy Palpitation Verified 04/17/25 08:26 Flexeril) s escitalopram Allergy Palpitation Verified 04/17/25 08:26 s hydralazine Allergy Nausea and Verified 04/17/25 08:26 Vomiting lorazepam (From Ativan) Allergy Palpitation Verified 04/09/25 15:32 s nifedipine Allergy Intermediate Unknown Uncoded 12/31/24 16:47 Review of Systems Review of Systems: Yes all other systems are reviewed and are negative PMFSH Past Medical History Attestation statement: The following information was validated with the patient. Source: old records reviewed and nursing notes reviewed Medical History Graves disease Graves' eye disease Pituitary microadenoma Psychogenic nonepileptic seizure Hyperthyroidism Essential hypertension Breast pain, left Overweight (BMI 25.0-29.9) Heavy menses Chronic constipation GERD without esophagitis Anemia HTN (hypertension) Anxiety Surgical History History of tubal ligation H/O tooth extraction (~12/10/22) H/O: Family History Family History Paternal Aunt Breast cancer, Onset Age: 35 Maternal Aunt Breast cancer, Onset Age: 40 Other Diabetes High cholesterol Hypertension Social History Social History Housing: House Alcohol intake: never Patient Tobacco Use Status: Never used Tobacco Tobacco use type: Cigarette e-Cigarette/Vaping Use: Never Used Second Hand Smoke Exposure: No service: No Current occupational status: unemployed Cognitive needs: No Hearing needs: No Vision needs: Yes (Glasses) Physical Exam ED Vital Signs: Vital Signs - 24 hr 04/17/25 08:25 04/17/25 12:00 Temperature 98 F 97.9 F Pulse Rate 88 83 Respiratory Rate 18 16 Blood Pressure 132/86 131/88 Pulse Oximetry 99 99 Oxygen Delivery Method Room Air Room Air BMI result Body Mass Index 34.0 Const General: cooperative, healthy appearing, comfortable, no acute distress and well developed Nutritional Appearance: obese Orientation/consciousness: patient oriented x3 Limitations: no limitations HENMT Head: Yes normal to inspection Ears: external ears normal, EAC's normal and no periauricular adenopathy General nose exam: Normal external nose present and Normal nasal mucous membranes and turbinates present Face and sinus: Yes normal facial exam Mouth: Normal oral and palatal mucosa present, lip normal, tongue normal, oropharynx normal and moist mucous membranes Teeth and gingiva: dentition normal Throat: Yes posterior oropharynx normal and Yes uvula midline Eyes General: appearance normal, both eyes and all related structures Periorbital: periorbital findings normal Eyelids: Yes eyelids normal Conjunctivae: conjunctivae normal Sclerae: sclerae normal Corneas: corneas normal Pupils: Equal, round and reactive pupils present Neck Neck: Yes full ROM and Yes no lymphadenopathy Chest Chest palpation & inspection: normal inspection of the chest Resp Effort & Inspection: normal respiratory effort and able to speak in complete sentences Auscultation: clear to auscultation bilaterally Cardio Jugular venous distension: no JVD Rate: regular rate Rhythm: regular rhythm Peripheral pulses: Peripheral pulses 2+ throughout GI Inspection: Yes normal to inspection Palpation (GI): Tenderness to palpation present (GI) periumbilically and suprapubicly and Bladder palpation abnormal Percussion: Yes normal to percussion Auscultation: normal bowel sounds Rectal Exam - Female: deferred General: Yes Bladder palpation abnormal and Yes no CVA tenderness Back/Spine/Pelvis Back: no CVA tenderness Cervical Spine: normal cervical lordosis Thoracic/Lumbar Spine: thoracic and lumbar spine normal to inspection Skin General skin exam: no rashes or lesions noted and elasticity normal Neuro General: patient oriented x3 Cranial nerves: Yes Equal, round and reactive pupils present Medications Administered Discontinued Medications Generic Name Dose Route Start Last Admin Trade Name Freq PRN Reason Stop Dose Admin Diatrizoate Meglum/Diatrizoate Sod 30 ml 04/17/25 13:55 04/17/25 13:56 Diatrizoate Meglumine, Sodium 30 Ml Solution PO 04/17/25 13:56 30 ml ONCE ONE Administration Sodium Chloride 1,000 mls @ 999 mls/hr 04/17/25 11:24 04/17/25 12:51 Ns IV 04/17/25 12:24 Infused .Q1H1M ONE Infusion Iohexol 100 ml 04/17/25 13:57 04/17/25 13:59 Iohexol 350 Mg/Ml 100 Ml Infus..Btl IV 04/17/25 13:58 85 ml ONCE ONE Administration Lidocaine/Diphenhydr/Alum/Mg/Simeth 10 ml 04/17/25 11:01 04/17/25 11:22 Mag&Al/Sim/Diphenhyd/Lidocaine 10 Ml Oral.Susp PO 04/17/25 11:02 10 ml ONCE ONE Administration Protocol Morphine Sulfate 1 mg 04/17/25 11:24 04/17/25 11:49 Morphine Sulfate 2 Mg/Ml Cartridge IVPUSH 04/17/25 11:25 1 mg ONCE ONE Administration Protocol Ondansetron HCl 4 mg 04/17/25 11:26 04/17/25 11:49 Ondansetron Hcl 4 Mg/2 Ml Vial IVPUSH 04/17/25 11:27 4 mg ONCE ONE Administration Medical Decision Making Medical Decision Making [facility] Narrative: 30 y/o F with PMH sig for grave's disease, panic attacks, migraines, pituitary microadenoma, psychogenic nonepileptic seizure, HTN, obesity, constipation, and C section presenting for evaluation of GI sxs. Upon arrival to ED patient is afebrile and nontoxic appearing. Abd labs were initiated in triage. On exam she has tender abd but without peritoneal signs. Given no vaginal bleeding and nontender ovaries, less likely due to torsion. Given surgical hx cannot rule out SBO or other intraabdominal pathology. Will order CT abd/pelvis and trial pain control. No leukocytosis or evidence of pancreatitis, or hepatobiliary disease. She is keeping bowel Oral contrast down well. No vomiting. No KAYODE. UA suggestive of UTI, will treat and correlate clinically with CT abd/pelvis as needed. Pyelo does not seem likely or kidney stone. Chem with chronic microcyctic anemia noted. no change. 1520: CT of the abdomen and pelvis shows no acute findings of the abdomen or pelvis ruling out SBO, kidney stone, pyelonephritis but it does show an incidental finding of a 3 mm nonobstructing calculus in the right. Kidney upper pole. Patient's overall impression today is felt to be acute gastritis as well as a urinary tract infection. She reports complete resolution of her esophageal reflux after she received the GI cocktail. Still is experiencing some suprapubic pressure but this is felt to be consistent with her urinary findings. Patient is stable and afebrile not septic appearing and did not feel that she required further workup in the ED or an inpatient level of care. Discussed overall disease processes complications and therapeutic interventions with the patient as well as reasons to seek medical attention again at the ED. Patient demonstrated verbal understanding of the plan and was in agreement she was discharged home stable. Differential Diagnosis Differential Diagnoses: The differential diagnosis associated with the presentation includes See [facility] Admission/Observation Consideration of admission/observation: Escalation of care including admission/observation considered Patient would have been admitted to the hospital had her work up had any findings where hospital admission was appropriate and her clinical presentation warranted hospital admission. Lab Data [facility] Lab Attestation statement: I reviewed the patient's lab results. 04/17/25 08:36 04/17/25 08:36 Labs: Lab Results 04/17/25 04/17/25 Range/Units 08:36 11:42 WBC 10.1 (4.8-10.8) X10*3/uL RBC 5.03 (4.20-5.50) X10*6/uL Hgb 11.1 L (12.0-16.0) g/dl Hct 34.9 L (37.0-47.0) % MCV 69.4 L (80.0-98.0) fL MCH 22.1 L (27.0-33.0) pg MCHC 31.8 (31.0-35.0) g/dl RDW 15.7 (11.0-16.0) % Plt Count 342 (160-400) X10*3/uL MPV 10.3 (9.4-12.3) fL Immature Gran % (Auto) 0.4 (0.0-0.4) % Neut % (Auto) 70.5 (45-73) % Lymph % (Auto) 18.3 L (20-40) % [place] % (Auto) 7.0 (2-11) % Eos % (Auto) 3.3 (0-4) % Baso % (Auto) 0.5 (0-2) % Lymph # (Auto) 1.9 (1.2-4.9) X10*3/uL [place] # (Auto) 0.7 (0.1-1.2) X10*3/uL Eos # (Auto) 0.3 (0.0-0.4) X10*3/uL Baso # (Auto) 0.1 (0.0-0.2) X10*3/uL Abs Immat Gran (auto) 0.04 H (0.00-0.03) X10*3/uL Absolute Neuts (auto) 7.1 (2.0-8.3) x10*3/uL Absolute Nucleated RBC 0.000 (0.0-0.012) X10*3/uL Nucleated RBC % (auto) 0.0 (0.0-0.2) /100WBC Sodium 139 (135-145) mmol/L Potassium 4.2 (3.3-5.1) mmol/L Chloride 104 (96-108) mmol/L Carbon Dioxide 26 (22-29) mmol/L Anion Gap 13 (12-20) BUN 10 (9-16) mg/dL Creatinine 0.63 (0.5-1.4) mg/dL Estim Creat Clear Calc 120.2 Estimated GFR > 60 Random Glucose 112 (60-115) mg/dL Calcium 9.8 (8.4-10.2) mg/dL Magnesium 1.9 (1.6-2.6) mg/dL Total Bilirubin 0.3 (0.0-1.0) mg/dL Direct Bilirubin 0.1 (0.0-0.5) mg/dL AST 21 (5-31) U/L ALT 22 (0-31) U/L Alkaline Phosphatase 86 (39-117) U/L Total Protein 8.1 H (6.5-8.0) g/dL Albumin 4.6 (3.5-5.0) g/dL Lipase 36 (8-78) U/L Urine Color Yellow Urine Appearance Clear Urine pH 6.0 (5.0-9.0) Ur Specific [place] <= 1.005 (1.005-1.025) Urine Protein Negative (Neg-Trace) mg/dL Urine Glucose (UA) Negative (Negative) mg/dL Urine Ketones Negative (Negative) mg/dL Urine Blood Negative (Negative) Urine Nitrite Negative (Negative) Ur Leukocyte Esterase Large (3+) H (Negative) Urine RBC 0-2 (0-2) /HPF Urine WBC >50 H (0-5) /HPF Ur Squamous Epith Cells 11-20 (0-2) /HPF Urine Bacteria Trace (None Seen) Hyaline Casts 0-2 (0-2) /LPF Urine Test NEGATIVE (NEGATIVE) Independent Interpretation I performed an independent interpretation of an: EKG, Plain X-Ray and CT Scan Interpretation: No acute pathology noted, no hiatal hernia widened mediastinum no pneumothorax. No leukocytosis or metabolic dysfunction. EKG: No overt evidence of STEMI. No evidence of Brugada's sign, delta wave, epsilon wave, significantly prolonged QTc, or malignant arrhythmia Radiology Impression Discussion of test interpretation with radiology: I have reviewed the radiologist's reading. Radiologist Impression: CT IMPRESSION: 1. No acute findings in the abdomen or pelvis. 2. There is a 3 mm nonobstructing calculus in the right kidney upper pole. CXR Impression: No acute cardiopulmonary abnormality. Tests considered The following testing was considered but not selected: Would have considered CT of the chest had PE send him concern but prick score is 0 PE could be ruled out clinically. Prescription Management I considered prescription management with: Pain Medication and Antibiotic Social Determinants Patient?s care significantly limited by Social Determinants of Health including: Other Social Determinant of Health Discharge Plan Discharge Clinical Impression: Dysuria, Abdominal pain, Chest pain, Acute gastritis without bleeding Patient Disposition: Home, Self-Care Instructions: Gastritis (DC), Urinary Tract Infection in Women (ED) Additional Instructions: You were seen in the emergency department today both for upper and lower abdominal discomfort including chest pain. You had both labs and imaging done you have been diagnosed with acute gastritis as well as a urinary tract infection. You were unable to rule out cardiac etiology as well as other intra-abdominal pathology such as diverticulitis, small-bowel obstruction, pneumothorax, pyelonephritis, obstructive kidney stone. See below for your diagnoses he is information that we discussed. You may have been prescribed sucralfate. Take 4 times a day for 14 days. Please follow up outpatient with Gastroenterology. Continue to take your for famotidine. -AVOID alcohol, spicy foods, Motrin/Aleve medications, and eating past 8:00 at night. -You may take antacids such as Maalox or Tums for acute symptoms but realize that these medications will not prevent your symptoms. -Remain upright for at least 45 minutes following meals. -Follow-up with your primary care doctor or gastroenterology. -Return to ED if you develop fever, chills, increased pain, vomiting. Other things to do to prevent symptoms: -Lose weight (if you are overweight) -Raise the head of your bed by 6 to 8 inches (for example, by putting blocks of wood or rubber under 2 legs of the bed or a Styrofoam wedge under the mattress) -Avoid foods that make your symptoms worse (examples include coffee, chocolate, alcohol, peppermint, and fatty foods) -Cut down on the amount of alcohol you drink -Stop smoking, if you smoke -Eat a bunch of small meals each day, rather than 2 or 3 big meals -Avoid lying down for 3 hours after a meal You were diagnosed with a urinary tract infection this is a bladder infection caused side most likely bacterial etiology. You were placed on Macrobid we will take 1 pill twice a day for 5 days. If for any reason you experience increased pain fevers or worsening urinary symptoms please return to the emergency department. If for any reason your chest pain returns is unrelieved he feel short of breath or worsening concerning symptoms please return to the emergency department. Prescriptions: New nitrofurantoin monohyd/m-cryst [Macrobid] 100 mg capsule 100 mg PO Q12H 5 Days Qty: 10 0RF Rx Instructions: must administer with a meal/food sucralfate 1 gram tablet 1 g PO Q6H 14 Days Qty: 56 0RF No Action (DME) Blood Pressure Cuff [facility] [place] See Rx Instructions .ROUTE .MEDSUPPLY Qty: 1 0RF Rx Instructions: As directed triamcinolone acetonide 55 mcg aerosol,spray 2 spray intranasal BEDTIME Qty: 16.9 0RF Rx Instructions: administer into each nostril lidocaine 5 % adhesive patch,medicated 1 patch topical DAILY Qty: 15 0RF Rx Instructions: leave on most painful area for up to 12 hrs naratriptan 2.5 mg tablet See Rx Instructions PO .COMPLEX PRN (Reason: migraine headache) 30 Days Qty: 12 6RF Rx Instructions: take 1/2 - 1 tab at onset of headache; if no relief may repeat 1 tab after at least 4 hrs; max = 2 tabs/24 hrs orally PRN; riboflavin (vitamin B2) 400 mg tablet 400 mg PO DAILY 30 Days Qty: 30 6RF diphenhydramine HCl [Benadryl] 25 mg capsule 25 mg PO TID PRN (Reason: allergic reaction or migraine headache) 30 Days Qty: 30 1RF propranolol 10 mg tablet 15 mg PO BID 90 Days Qty: 270 0RF amlodipine 10 mg tablet 10 mg PO DAILY 90 Days Qty: 90 0RF azithromycin 250 mg tablet See Rx Instructions PO .COMPLEX Qty: 6 0RF Rx Instructions: For 250 mg dose pack: take 500 mg today (day 1), then 250 mg for 4 days (days 2-5) PO ofloxacin 0.3 % drops 10 drp otic (ears) BID 14 Days Qty: 10 0RF Referrals: [facility] [place] [facility] [Provider Group, Gastroenterology] Referral Note: recurrent gerd, dx of gastritis Interventions: ED Discharge Assessment Last Done: 04/17/25 16:01 Discharge Date/Time: 04/17/25 16:02 Print Language: Z[place]ian
[2025-04-17] MEDS: Mag&Al/Sim/Diphenhyd/Lidocaine 10 ML ORAL.SUSP PO (11:22)
[2025-04-17 11:38] LABS: Lipase 36 U/L (8-78)
[2025-04-17 11:40] LABS: Alanine Aminotransferase 22 U/L (0-31); Albumin Level 4.6 g/dL (3.5-5.0); Alkaline Phosphatase 86 U/L (39-117); Aspartate Amino Transferase 21 U/L (5-31); Magnesium 1.9 mg/dL (1.6-2.6); Total Protein 8.1 g/dL (6.5-8.0)
[2025-04-17 11:50] LABS: Appearance Urine Clear; Glucose Urine UA Negative (Negative); PH 6.0 (5.0-9.0); Specific Gravity - Urine <= 1.005 (1.005-1.025); UMIC TRIGGER UACC YES
[2025-04-17 11:52] LABS: UPreg QC Valid YES
--- NOTE | 2025-04-17 11:53 | PC.NURSE ---
patient a&ox3, iv inserted, labs previously drawn, pt medicated per order, pt currently drinking contrast for CT scan, urine obtained, plan of care ongoing
[2025-04-17 11:54] LABS: UACC Culture Trigger YES
[2025-04-17 12:00] VITALS: BP 131/88; PULSE 83; RESP 16; TEMP 36.6; O2SAT 99
[2025-04-17] MEDS: iohexoL 350 MG/ML 100 ML INFUS..BTL IV (13:59)
[2025-04-17 16:01] VITALS: BP 130/78; PULSE 86; RESP 16; TEMP 36.7; O2SAT 99
== END 2025-04-17 16:02 | disposition home or self-care (01) ==
PROVIDERS: Physician Assistant Medical; Emergency Provider Emergency Medicine; PCP Internal Medicine
DX: K29.00 Acute gastritis without bleeding (principal); R30.0 Dysuria
CPT/HCPCS: 36415; 71046; 74177; 80048; 80076; 81001; 81025; 83690; 83735; 85025; 87086; 87147; 93005; 96361; 96374; 96375; 99284; 99285; J2270; J2405; Q9967

== ENCOUNTER → 2025-04-17 08:15 | Outpatient (BNV) | payer OTHER, SELFPAY | PROVIDERS: Emergency Provider Emergency Medicine; PCP Internal Medicine; Visit Provider Internal Medicine | DX: R07.9 Chest pain, unspecified (principal) | CPT/HCPCS: 93010 ==

== ENCOUNTER → 2025-04-17 11:03 | Outpatient (BNV) | payer OTHER, SELFPAY | PROVIDERS: Emergency Provider Emergency Medicine; PCP Internal Medicine; Visit Provider Radiology Diagnostic Radiology | DX: N20.0 Calculus of kidney (principal); R10.13 Epigastric pain | CPT/HCPCS: 71046; 74177 ==

== ENCOUNTER 2025-04-22 07:55 | Emergency (ER) | payer OTHER, SELFPAY ==
--- NOTE | ~2025-04-22 | CT_ITS ---
EXAMINATION: CT ABDOMEN AND PELVIS WITHOUT CONTRAST CLINICAL INFORMATION: Right flank pain. COMPARISON: April 17, 2025. TECHNIQUE: Multidetector volumetric imaging was performed from the superior aspect of the liver through the pubic symphysis. Sagittal and coronal reformatted images were obtained on the technologist's workstation. This CT examination was performed using dose optimization techniques as appropriate, variously including the following: *Automated exposure control *Adjustment of mA and/or kV according to patient size (this includes techniques or standardized protocols for targeted exams where dose is matched to indication/reason for exam; i.e. extremities or head) *Use of iterative reconstruction technique DLP: 558 mGy centimeter. FINDINGS: Limited examination of the intra-abdominal organs and vascular structures due to lack of IV contrast. LUNG BASES: No gross acute airspace disease or discrete pulmonary nodules in the [id number]. LIVER, GALLBLADDER, AND BILIARY TREE: Liver measures 15 cm. Gallbladder is contracted. No pericholecystic fluid collection or gallbladder wall thickening. No intrahepatic or extrahepatic biliary ductal dilatation. PANCREAS: No peripancreatic fluid collection. No main pancreatic ductal dilatation. SPLEEN: 10 cm. ADRENAL GLANDS: No nodular lesions. KIDNEYS AND URETERS: Right kidney: 1 mm calcification, upper pole midportion junction of the pelvicalyceal system. No hydronephrosis. No perinephric edema pattern or fluid collections. The ureter is not dilated. Left kidney: No hydronephrosis. No nephrolithiasis. No perinephric fluid collections. No dilatation of the ureter. BLADDER: Fluid-filled nearly collapsed. GASTROINTESTINAL TRACT: Inspissated secretions within normal diameter appendix. Collapsed appearance of the left hemicolon. No intestinal obstruction pattern. No pneumatosis intestinalis. No pneumoperitoneum. No ascites. No gross intestinal wall thickening. ABDOMINAL WALL: Small fat-containing umbilical hernia. LYMPH NODES: Nonspecific prominent mesenteric and retroperitoneum and inguinal. Mild mesenteric edema pattern.. VASCULAR: No aneurysm, abdominal aorta. No gross calcified plaques. PELVIC VISCERA: Inadequate evaluation without gross mass. OSSEOUS STRUCTURES: Mild multilevel lower thoracic and lower lumbar spondylosis. Sclerosis and the inferior sacroiliac joints. The bony pelvis intact. The coxofemoral joints are intact. CT/CT abdomen pelvis wo IV con IMPRESSION: 1 mm nonobstructing nephrolithiasis, right kidney. Nonspecific prominent mesenteric and retroperitoneal lymph nodes with the subtle mesenteric edema pattern. Mild enteritis cannot be excluded. Small fat-containing umbilical hernia.. Fleischner guidelines were followed. Electronically signed by: Luis Grimaldo MD 04/22/2025 10:31 AM EDT
[2025-04-22 08:00] VITALS: BP 144/67; PULSE 88; RESP 18; TEMP 37.1; O2SAT 99; BMI 33.6
--- NOTE | 2025-04-22 09:10 | ED_ITS ---
HPI - Abdominal Pain General Chief Complaint: Abdominal Pain Stated Complaint: Back pain, R leg pain Time Seen by Provider: 04/22/25 08:08 Source: patient Mode of arrival: ambulatory Limitations: no limitations History of Present Illness HPI narrative: This is a 30 years old the patient presented to the emergency department complaining of right back pain right flank pain radiated to the right lower abdomen she was diagnosed with a urinary tract infection she is taking Macrobid she was seen in the emergency room few days ago on April 17 and diagnosed with a UTI however the pain continued expecially in the right flank MD elicited complaint: flank pain Pertinent past history: other (uti) Pain Consistency: constant Location: R flank Severity: moderate Quality: aching Radiation: R flank Migration to: RLQ Exacerbating factors: nothing Relieving factors: nothing Associated symptoms: denies other symptoms Related Data Previous Rx's ?Medication ?Instructions ?Recorded miscellaneous medical supply #1 ea 03/30/23 (Blood Pressure Cuff) diphenhydramine HCl 25 mg capsule 25 mg PO TID PRN all ergic reaction 05/07/24 (Benadryl) or migraine headache 30 days #30 caps amlodipine 10 mg tablet 10 mg PO DAILY 90 days #90 t abs 10/14/24 propranolol 10 mg tablet 15 mg (1.5 x 10 mg) PO BID 9 0 days 10/14/24 #270 tabs triamcinolone acetonide 55 mcg 2 spray intranasal BEDT SERGIO #16.9 mL 01/01/25 nasal spray aerosol lidocaine 5 % topical patch 1 patch topical DAILY #15 ea 02/25/25 naratriptan 2.5 mg tablet See Rx Instructions PO .COMP ALVARO 03/27/25 PRN migraine headache 30 days #12 tabs riboflavin (vitamin B2) 400 mg 400 mg PO DAILY 30 days #30 tabs 03/27/25 tablet azithromycin 250 mg tablet See Rx Instructions PO .COM PLEX #6 04/09/25 tabs ofloxacin 0.3 % ear drops 10 drp otic (ears) BID 14 da ys #10 04/09/25 mL nitrofurantoin 100 mg PO Q12H 5 days #10 ca ps 04/17/25 monohydrate/macrocrystals 100 mg capsule (Macrobid) sucralfate 1 gram tablet 1 g PO Q6H 14 days #56 tabs 04/17/25 naproxen 500 mg tablet (Naprosyn) 500 mg PO BID PRN PA IN #20 tabs 04/22/25 Allergies Allergy/AdvReac Type Severity Reaction Status Date / Time morphine Allergy Severe Vomiting Verified 04/22/25 08:03 chlorthalidone Allergy Intermediate Chest Pain Verified 04/22/25 08:03 glucagon Allergy Intermediate Unknown Verified 04/22/25 08:03 guaifenesin (From Mucinex) Allergy Intermediate Unknown Verified 04/22/25 08:03 latex Allergy Intermediate Rash Verified 04/22/25 08:03 amoxicillin Allergy Mild Rash Verified 04/22/25 08:03 clavulanic acid (From Allergy Unknown Unknown Verified 04/22/25 08:03 Augmentin) cyclobenzaprine (From Allergy Palpitation Verified 04/22/25 08:03 Flexeril) s escitalopram Allergy Palpitation Verified 04/22/25 08:03 s hydralazine Allergy Nausea and Verified 04/22/25 08:03 Vomiting lorazepam (From Ativan) Allergy Palpitation Verified 04/22/25 08:03 s nifedipine Allergy Intermediate Unknown Uncoded 12/31/24 16:47 Review of Systems Constitutional: Reports no additional constitutional complaints Cardiovascular: Reports no additional cardiovascular complaints Musculoskeletal: Reports no additional musculoskeletal complaints PMFSH Past Medical History Medical History Graves disease Graves' eye disease Pituitary microadenoma Psychogenic nonepileptic seizure Hyperthyroidism Essential hypertension Breast pain, left Overweight (BMI 25.0-29.9) Heavy menses Chronic constipation GERD without esophagitis Anemia HTN (hypertension) Anxiety Surgical History History of tubal ligation H/O tooth extraction (~12/10/22) H/O: Family History Family History Paternal Aunt Breast cancer, Onset Age: 35 Maternal Aunt Breast cancer, Onset Age: 40 Other Diabetes High cholesterol Hypertension Social History Social History Housing: House Alcohol intake: never Patient Tobacco Use Status: Never used Tobacco Tobacco use type: Cigarette e-Cigarette/Vaping Use: Never Used Second Hand Smoke Exposure: No Advance Directives: No Advance Directives Information Provided: Yes Do you have a plan to hurt others: No Plan service: No Current occupational status: unemployed Cognitive needs: No Hearing needs: No Vision needs: Yes (Glasses) Physical Exam ED Exam Exam: Patient in not acute distress sitting in the chest Vital Signs: Vital Signs - 24 hr 04/22/25 08:00 04/22/25 10:43 04/22/25 12:51 Temperature 98.7 F Pulse Rate 88 71 77 Respiratory Rate 18 16 16 Blood Pressure 144/67 H 122/52 L 117/63 Pulse Oximetry 99 99 100 Oxygen Delivery Method Room Air Room Air Room Air BMI result Body Mass Index 33.6 Const General: cooperative Nutritional Appearance: average body habitus Orientation/consciousness: patient oriented x3 Limitations: no limitations HENMT Head: Yes normal to inspection General nose exam: Normal external nose present Face and sinus: Yes normal facial exam Mouth: Normal oral and palatal mucosa present Throat: Yes posterior oropharynx normal Neck Neck: Yes normal visual inspection Resp Effort & Inspection: normal respiratory effort Auscultation: clear to auscultation bilaterally Cardio Jugular venous distension: no JVD Rate: regular rate Rhythm: regular rhythm GI Inspection: Yes normal to inspection Palpation (GI): Soft to palpation Auscultation: normal bowel sounds Skin General skin exam: no rashes or lesions noted Lesions: no lesions Rashes: no rashes Neuro General: patient oriented x3 Cranial nerves: Yes CN's II-XII intact bilaterally Course Reevaluation(s) Reevaluation #1: Workup and now is completed CAT scan does not show any ureteric stone or hydronephrosis or pyelonephritis the UA actually is better today, I do not think we need to change antibiotic she has no bacteria in the urine and only 2150 WBC negative nitrate. The etiology of the pain is unclear it may be musculoskeletal it is very reasonable to discharge her home I will prescribe a short course of pain medicine oxycodone she is comfortable with the plan of care Time: 13:14 Medical Decision Making Medical Decision Making MDM Narrative: Patient is here complaining of right flank pain already on antibiotic. Denies any fever or chills the pain is localized in the right flank, a CT scan shows no hydronephrosis no kidney stones no pyelonephritis. Urine is actually is better she has no bacteria in the urine. The etiology of the pain is unclear perhaps musculoskeletal I think she can be discharged home she is comfortable with the plan she will follow-up with the PCP Differential Diagnosis Differential Diagnoses: The differential diagnosis associated with the presentation includes Kidney stone/right hydro/pyelonephritis Admission/Observation Consideration of admission/observation: Escalation of care including admission/observation considered Lab Data MDM Lab Attestation statement: I reviewed the patient's lab results. 04/22/25 09:18 04/22/25 09:18 Labs: Lab Results 04/22/25 04/22/25 Range/Units 09:18 Unknown WBC 9.9 (4.8-10.8) X10*3/uL RBC 4.97 (4.20-5.50) X10*6/uL Hgb 11.0 L (12.0-16.0) g/dl Hct 34.9 L (37.0-47.0) % MCV 70.2 L (80.0-98.0) fL MCH 22.1 L (27.0-33.0) pg MCHC 31.5 (31.0-35.0) g/dl RDW 16.0 (11.0-16.0) % Plt Count 299 (160-400) X10*3/uL MPV 10.4 (9.4-12.3) fL Immature Gran % (Auto) 0.4 (0.0-0.4) % Neut % (Auto) 73.1 H (45-73) % Lymph % (Auto) 16.3 L (20-40) % [place] % (Auto) 6.7 (2-11) % Eos % (Auto) 3.0 (0-4) % Baso % (Auto) 0.5 (0-2) % Lymph # (Auto) 1.6 (1.2-4.9) X10*3/uL [place] # (Auto) 0.7 (0.1-1.2) X10*3/uL Eos # (Auto) 0.3 (0.0-0.4) X10*3/uL Baso # (Auto) 0.1 (0.0-0.2) X10*3/uL Abs Immat Gran (auto) 0.04 H (0.00-0.03) X10*3/uL Absolute Neuts (auto) 7.2 (2.0-8.3) x10*3/uL Absolute Nucleated RBC 0.000 (0.0-0.012) X10*3/uL Nucleated RBC % (auto) 0.0 (0.0-0.2) /100WBC Sodium 138 (135-145) mmol/L Potassium 4.3 (3.3-5.1) mmol/L Chloride 108 (96-108) mmol/L Carbon Dioxide 21 L (22-29) mmol/L Anion Gap 13 (12-20) BUN 9 (9-16) mg/dL Creatinine 0.61 (0.5-1.4) mg/dL Estim Creat Clear Calc 123.4 Estimated GFR > 60 Random Glucose 112 (60-115) mg/dL Calcium 9.5 (8.4-10.2) mg/dL Total Bilirubin 0.2 (0.0-1.0) mg/dL AST 22 (5-31) U/L ALT 19 (0-31) U/L Alkaline Phosphatase 82 (39-117) U/L Total Protein 8.0 (6.5-8.0) g/dL Albumin 4.5 (3.5-5.0) g/dL Lipase 38 (8-78) U/L Beta HCG, Quant < 2 mIU/mL Urine Color Yellow Urine Appearance Clear Urine pH 6.0 (5.0-9.0) Ur Specific [place] 1.015 (1.005-1.025) Urine Protein Negative (Neg-Trace) mg/dL Urine Glucose (UA) Negative (Negative) mg/dL Urine Ketones Negative (Negative) mg/dL Urine Blood Negative (Negative) Urine Nitrite Negative (Negative) Ur Leukocyte Esterase Large (3+) H (Negative) Urine RBC 0-2 (0-2) /HPF Urine WBC 21-50 H (0-5) /HPF Ur Squamous Epith Cells 3-5 (0-2) /HPF Urine Bacteria None Seen (None Seen) Hyaline Casts 0-2 (0-2) /LPF Independent Interpretation I performed an independent interpretation of an: CT Scan Radiology Impression Discussion of test interpretation with radiology: I have reviewed the radiologist's reading. Radiologist Impression: VASCULAR: No aneurysm, abdominal aorta. No gross calcified plaques. PELVIC VISCERA: Inadequate evaluation without gross mass. OSSEOUS STRUCTURES: Mild multilevel lower thoracic and lower lumbar spondylosis. Sclerosis and the inferior sacroiliac joints. The bony pelvis intact. The coxofemoral joints are intact. CT/CT abdomen pelvis wo IV con IMPRESSION: 1 mm nonobstructing nephrolithiasis, right kidney. Nonspecific prominent mesenteric and retroperitoneal lymph nodes with the subtle mesenteric edema pattern. Mild enteritis cannot be excluded. Small fat-containing umbilical hernia.. Fleischner guidelines were followed. Electronically signed by: Luis Grimaldo MD 04/22/2025 10:31 AM EDT Dictated By: Luis Meek MD Medications Administered Discontinued Medications Generic Name Dose Route Start Last Admin Trade Name Freq PRN Reason Stop Dose Admin Ketorolac Tromethamine 15 mg 04/22/25 09:02 04/22/25 09:19 Ketorolac Tromethamine 15 Mg/Ml Vial IVPUSH 04/22/25 09:03 15 mg ONCE ONE Administration Discharge Plan Discharge Clinical Impression: Flank pain, acute Patient Disposition: Home, Self-Care Instructions: Flank Pain (ED) Additional Instructions: Follow-up with your primary care physician return to the emergency room if worse we called pain medicine to your pharmacy Prescriptions: New naproxen [Naprosyn] 500 mg tablet 500 mg PO BID PRN (Reason: PAIN) Qty: 20 0RF No Action (DME) Blood Pressure Cuff Misc See Rx Instructions .ROUTE .MEDSUPPLY Qty: 1 0RF Rx Instructions: As directed triamcinolone acetonide 55 mcg aerosol,spray 2 spray intranasal BEDTIME Qty: 16.9 0RF Rx Instructions: administer into each nostril lidocaine 5 % adhesive patch,medicated 1 patch topical DAILY Qty: 15 0RF Rx Instructions: leave on most painful area for up to 12 hrs nitrofurantoin monohyd/m-cryst [Macrobid] 100 mg capsule 100 mg PO Q12H 5 Days Qty: 10 0RF Rx Instructions: must administer with a meal/food sucralfate 1 gram tablet 1 g PO Q6H 14 Days Qty: 56 0RF naratriptan 2.5 mg tablet See Rx Instructions PO .COMPLEX PRN (Reason: migraine headache) 30 Days Qty: 12 6RF Rx Instructions: take 1/2 - 1 tab at onset of headache; if no relief may repeat 1 tab after at least 4 hrs; max = 2 tabs/24 hrs orally PRN; riboflavin (vitamin B2) 400 mg tablet 400 mg PO DAILY 30 Days Qty: 30 6RF diphenhydramine HCl [Benadryl] 25 mg capsule 25 mg PO TID PRN (Reason: allergic reaction or migraine headache) 30 Days Qty: 30 1RF propranolol 10 mg tablet 15 mg PO BID 90 Days Qty: 270 0RF amlodipine 10 mg tablet 10 mg PO DAILY 90 Days Qty: 90 0RF azithromycin 250 mg tablet See Rx Instructions PO .COMPLEX Qty: 6 0RF Rx Instructions: For 250 mg dose pack: take 500 mg today (day 1), then 250 mg for 4 days (days 2-5) PO ofloxacin 0.3 % drops 10 drp otic (ears) BID 14 Days Qty: 10 0RF Referrals: Jeffy Gutierrez MD [Primary Care Provider, Internal Medicine] - 04/25/25 Stand Alone Forms: Work/School Release Print Language: Ghanaian
[2025-04-22 09:24] LABS: MANUAL DIFF FLAG NO
[2025-04-22 09:27] LABS: Hematocrit 34.9 % (37.0-47.0); Hemoglobin 11.0 g/dl (12.0-16.0); Imm Gran Abs Auto 0.04 X10*3/uL (0.00-0.03); Imm Gran Pct Auto 0.4 % (0.0-0.4); Lymphocytes Absolute Auto 1.6 X10*3/uL (1.2-4.9); Mean Corpuscular HGB Conc 31.5 g/dl (31.0-35.0); Mean Corpuscular Hemoglobin 22.1 pg (27.0-33.0); Mean Corpuscular Volume 70.2 fL (80.0-98.0); NRBC Abs Auto 0.000 X10*3/uL (0.0-0.012); NRBC Pct Auto 0.0 /100WBC (0.0-0.2); Platelet Count 299 X10*3/uL (160-400); Red Blood Count 4.97 X10*6/uL (4.20-5.50); White Blood Count 9.9 X10*3/uL (4.8-10.8)
--- OUTSIDE RECORDS SUMMARY | 2025-04-22 09:29 | XMS_ITS | Referral Summary ---
Author Organization [facility] Address [address] [place] [address] Care Team Providers Care Taker Off Drying Kiln Name Role Phone Patient, Has No Pcp [...] Plan of Treatment Not on file Insurance [facility] MEDICAID Care Teams Taker Off Drying Kiln Relationship Specialty Start Date End Date Patient, Has No Pcp Or Ref DO NOT EDIT THIS RECORD VIA PROVIDER ON THE FLY PCP - General Clinic Office Coordinator 11/17/24
--- OUTSIDE RECORDS SUMMARY | 2025-04-22 09:29 | XMS_ITS | Clinical Summary ---
Author Organization [facility] Address [address] [address] Phone Care Team Providers Care Rat Trapper Name Role Phone Pcp, Unknown Primary Care [...] file Medical Devices Not on file Insurance [facility] [employer] [facility] ACO ACO Care Teams Rat Trapper Relationship Specialty Start Date End Date Pcp, Unknown PCP - General 11/15/22 Additional Source Comments The information contained in this document represents components of the legal health record. It is not the complete legal health record.[facility]
--- OUTSIDE RECORDS SUMMARY | 2025-04-22 09:29 | XMS_ITS | Clinical Summary ---
Author Organization [facility] it[facility] Address [address] [place] [address] Care Team Providers Care Adhesive Sprayer Name Role Phone Jeffy Gutierrez MD Primary Care Provider [phone] Surgical History Surgery Date Site/Laterality Comments SECTION [...] Documents on File Type Date Recorded Patient Natural Resource Officer Expl anation Health Care Decision (hx) 08/30/2023 HE ALTH CARE PROXY Health Care Decision (hx) 08/30/2023 HE ALTH CARE PROXY Health Care Decision (hx) 08/30/2023 HE ALTH CARE PROXY Care Teams Adhesive Sprayer Relationship Specialty Start Date End Date Jeffy Gutierrez MD [address] [place] [address] Dr [address] JO-ANN Black PCP - General 10/25/23
[2025-04-22 09:49] LABS: Alanine Aminotransferase 19 U/L (0-31); Albumin Level 4.5 g/dL (3.5-5.0); Alkaline Phosphatase 82 U/L (39-117); Anion Gap 13 (12-20); Aspartate Amino Transferase 22 U/L (5-31); Blood Urea Nitrogen 9 mg/dL (9-16); Calcium 9.5 mg/dL (8.4-10.2); Carbon Dioxide 21 mmol/L (22-29); Chloride 108 mmol/L (96-108); Creatinine Clr Calc Pharmacy 123.4; Estimated Glomerular Filt Rate > 60; Lipase 38 U/L (8-78); Potassium 4.3 mmol/L (3.3-5.1); Sodium 138 mmol/L (135-145); Total Protein 8.0 g/dL (6.5-8.0)
[2025-04-22 10:20] LABS: Appearance Urine Clear; Glucose Urine UA Negative (Negative); PH 6.0 (5.0-9.0); Specific Gravity - Urine 1.015 (1.005-1.025); UMIC TRIGGER UACC YES
[2025-04-22 10:27] LABS: UACC Culture Trigger YES
[2025-04-22 10:43] VITALS: BP 122/52; PULSE 71; RESP 16; O2SAT 99
[2025-04-22 12:51] VITALS: BP 117/63; PULSE 77; RESP 16; O2SAT 100
[2025-04-22 13:35] VITALS: BP 117/63; PULSE 77; RESP 16; TEMP 36.8; O2SAT 100
== END 2025-04-22 13:35 | disposition home or self-care (01) ==
PROVIDERS: Emergency Provider Emergency Medicine; PCP Internal Medicine
DX: R10.9 Unspecified abdominal pain (principal); M54.50 Low back pain, unspecified; I10 Essential (primary) hypertension; E03.9 Hypothyroidism, unspecified; Z79.899 Other long term (current) drug therapy
CPT/HCPCS: 36415; 74176; 80053; 81001; 83690; 84702; 85025; 87086; 87147; 96374; 99284; J1885

== ENCOUNTER → 2025-04-22 09:03 | Outpatient (BNV) | payer OTHER, SELFPAY | PROVIDERS: Emergency Provider Emergency Medicine; PCP Internal Medicine; Visit Provider Radiology Diagnostic Radiology | DX: K42.9 Umbilical hernia without obstruction or gangrene (principal) | CPT/HCPCS: 74176 ==

== ENCOUNTER 2025-05-01 09:22 | Outpatient (REF) | payer OTHER, SELFPAY ==
[2025-05-01 10:05] LABS: MANUAL DIFF FLAG NO
--- OUTSIDE RECORDS SUMMARY | 2025-05-01 10:32 | XMS_ITS | Clinical Summary ---
Author Organization [facility] Address [address] [place] [address] Care Team Providers Care Ball Maker Name Role Phone Patient, Has No Pcp [...] - 19+ 3-dose series) 2013 COVID-19 Vaccine (2023-2 5 season) 2024 08/12/2021, 04/02/2021 Alcohol/Substance Use Screening 09/11/2024 Depression Screening and Follow-Up 09/11/2024 Social Drivers of Health Annual Screening 09/11/2024 Influenza Vaccine (#1) 2025 4, 06/04/2019 DTaP,Tdap,and Td Vaccines (3 - Td or Tdap) 06/25/2034 06/25/2024, 05/21/2019 RSV Vaccine (60+ years old and patients) (1 - 1-dose 75+ series) 2069 Pneumococcal Vaccine: Pediatric (0-5 Years) and At-Risk Patients (6-50 Years) Aged Out 07/09/2019 No longer eligible based on patient's age to complete [place] [address] [employer] [address] Care Teams Ball Maker Relationship Specialty Start Date End Date Patient, Has No Pcp Or Ref DO NOT EDIT THIS RECORD VIA PROVIDER ON THE FLY PCP - General Dental Mold Maker 11/17/24
--- OUTSIDE RECORDS SUMMARY | 2025-05-01 10:32 | XMS_ITS | Clinical Summary ---
Author Organization [facility] it[facility] Address [address] [place] [address] Care Team Providers Care Residential Treatment Staff Name Role Phone Jeffy Gutierrez MD Primary Care Provider [phone] Surgical History Surgery Date Site/Laterality Comments SECTION [...] Documents on File Type Date Recorded Patient Manager Education Expl anation Health Care Decision (hx) 08/30/2023 HE ALTH CARE PROXY Health Care Decision (hx) 08/30/2023 HE ALTH CARE PROXY Health Care Decision (hx) 08/30/2023 HE ALTH CARE PROXY Care Teams Residential Treatment Staff Relationship Specialty Start Date End Date Jeffy Gutierrez MD [address] [place] [address] Dr [address] JO-ANN Black PCP - General 10/25/23
--- OUTSIDE RECORDS SUMMARY | 2025-05-01 10:32 | XMS_ITS | Clinical Summary ---
Author Organization [facility] Address [address] [address] Phone Care Team Providers Care Lap Winding Machine Operator Name Role Phone Pcp, Unknown Primary Care [...] file Medical Devices Not on file Insurance [facility] [employer] [facility] ACO ACO Care Teams Lap Winding Machine Operator Relationship Specialty Start Date End Date Pcp, Unknown PCP - General 11/15/22 Additional Source Comments The information contained in this document represents components of the legal health record. It is not the complete legal health record.[facility]
[2025-05-01 10:56] LABS: Hematocrit 34.9 % (37.0-47.0); Hemoglobin 10.9 g/dl (12.0-16.0); Imm Gran Abs Auto 0.05 X10*3/uL (0.00-0.03); Imm Gran Pct Auto 0.5 % (0.0-0.4); Lymphocytes Absolute Auto 2.1 X10*3/uL (1.2-4.9); Mean Corpuscular HGB Conc 31.2 g/dl (31.0-35.0); Mean Corpuscular Hemoglobin 21.9 pg (27.0-33.0); Mean Corpuscular Volume 70.2 fL (80.0-98.0); NRBC Abs Auto 0.000 X10*3/uL (0.0-0.012); NRBC Pct Auto 0.0 /100WBC (0.0-0.2); Platelet Count 329 X10*3/uL (160-400); Red Blood Count 4.97 X10*6/uL (4.20-5.50); White Blood Count 9.3 X10*3/uL (4.8-10.8)
[2025-05-01 11:42] LABS: B Type Natriuretic Peptide 15 pg/mL (<100)
[2025-05-01 11:55] LABS: Alanine Aminotransferase 21 U/L (0-31); Albumin Level 4.6 g/dL (3.5-5.0); Alkaline Phosphatase 84 U/L (39-117); Anion Gap 11 (12-20); Aspartate Amino Transferase 26 U/L (5-31); Blood Urea Nitrogen 8 mg/dL (9-16); Calcium 9.3 mg/dL (8.4-10.2); Carbon Dioxide 25 mmol/L (22-29); Chloride 107 mmol/L (96-108); Cholesterol 208 mg/dL (<200); Estimated Glomerular Filt Rate > 60; HDL Cholesterol 35 mg/dL (>40); Iron 21 mcg/dL (30-160); Percent Iron Saturation 5 % (15-50); Potassium 4.2 mmol/L (3.3-5.1); Sodium 139 mmol/L (135-145); Total Iron Binding Capacity 383 mcg/dL (228-428); Total Protein 8.0 g/dL (6.5-8.0); Triglycerides 316 mg/dL (<150); Unsaturated Iron Binding 362 ug/dL
== END 2025-05-01 09:23 | disposition home or self-care (01) ==
LOC: HO.LAB 09:22
PROVIDERS: PCP Internal Medicine
DX: I10 Essential (primary) hypertension (principal); R73.9 Hyperglycemia, unspecified; K21.9 Gastro-esophageal reflux disease without esophagitis; N92.0 Excessive and frequent menstruation with regular cycle; R42 Dizziness and giddiness; R60.0 Localized edema
CPT/HCPCS: 36415; 80053; 80061; 82306; 83540; 83880; 85025

== ENCOUNTER 2025-05-02 07:20 | Outpatient (AMB) | payer OTHER, SELFPAY ==
--- OUTSIDE RECORDS SUMMARY | 2025-05-02 07:23 | XMS_ITS | Clinical Summary ---
Author Organization [facility] ity Address [address] [place] [address] Care Team Providers Care Waxer Floor Name Role Phone Jeffy Gutierrez MD Primary [...] Documents on File Type Date Recorded Patient Calculus Tutor Expl anation Health Care Decision (hx) 08/30/2023 HE ALTH CARE PROXY Health Care Decision (hx) 08/30/2023 HE ALTH CARE PROXY Health Care Decision (hx) 08/30/2023 HE ALTH CARE PROXY Care Teams Waxer Floor Relationship Specialty Start Date End Date Jeffy Gutierrez MD [address] [place] [address] [address] JO-ANN Black PCP - General 10/25/23
--- OUTSIDE RECORDS SUMMARY | 2025-05-02 07:23 | XMS_ITS | Clinical Summary ---
Author Organization [facility] Address [address] [place] [address] Care Team Providers Care Architectural Intern Name Role Phone Patient, Has No Pcp [...] to complete [place] [id number] [employer]ICA[employer] Care Teams Architectural Intern Relationship Specialty Start Date End Date Patient, Has No Pcp Or Ref DO NOT EDIT THIS RECORD VIA PROVIDER ON THE FLY PCP - General School Cafeteria Head Cook 11/17/24
--- OUTSIDE RECORDS SUMMARY | 2025-05-02 07:23 | XMS_ITS | Clinical Summary ---
Author Organization [facility] Address [address] [address] Phone Care Team Providers Care Central Office Equipment Engineer Name Role Phone Pcp, Unknown Primary Care [...] Devices Not on file Insurance [facility] [employer] [facility] [place] [id number] Care Teams Central Office Equipment Engineer Relationship Specialty Start Date End Date Pcp, Unknown PCP - General 11/15/22 Additional Source Comments The information contained in this document represents components of the legal health record. It is not the complete legal health record.[facility]
[2025-05-02 07:34] VITALS: BP 116/82; PULSE 88; TEMP 36.3; O2SAT 99; BMI 34.4
--- NOTE | 2025-05-02 07:34 | MHC.PC.OV ---
Vital Signs 05/02/25 07:34 Height 5 ft Weight 176 lb 2 oz BMI 34.4 BP 116/82 Blood Pressure Location Lt brachial Position Sitting Pulse 88 Pulse Source Pulse Oximeter Temp 97.3 F Temp Source Temporal Artery Scan Pulse Oximetry (%) 99 Oxygen Delivery Method Room Air Intake Visit Reasons: [facility] 04/22 Disc Pad Grinding Machine Feeder Required: Yes Disc Pad Grinding Machine Feeder Language: Finish Mill Operator Name: Jim([id number]) Allergies morphine Allergy (Severe, Verified 05/02/25 07:36) Vomiting chlorthalidone Allergy (Intermediate, Verified 05/02/25 07:36) Chest Pain glucagon Allergy (Intermediate, Verified 05/02/25 07:36) Unknown guaifenesin (From Mucinex) Allergy (Intermediate, Verified 05/02/25 07:36) Unknown latex Allergy (Intermediate, Verified 05/02/25 07:36) Rash amoxicillin Allergy (Mild, Verified 05/02/25 07:36) Rash clavulanic acid (From Augmentin) Allergy (Unknown, Verified 05/02/25 07:36) Unknown cyclobenzaprine (From Flexeril) Allergy (Verified 05/02/25 07:36) Palpitations escitalopram Allergy (Verified 05/02/25 07:36) Palpitations hydralazine Allergy (Verified 05/02/25 07:36) Nausea and Vomiting lorazepam (From Ativan) Allergy (Verified 05/02/25 07:36) Palpitations nifedipine Allergy (Intermediate, Uncoded 05/02/25 07:36) Unknown Tobacco use date assessed: 05/02/25 Dental Screening Dental Screen Date: 05/02/25 Did you have a dental visit in the last 12 months?: Yes Did you have a dental problem in the last 6 months where you did not have access to dental care?: No Was dental information given to patient?: Patient has dentist HPI HPI Comments History of Present Illness Details 30 y/o Female patient who presents to the clinic today for EDF. She was admitted at [facility] on 04/22 for an evaluation and treatment of UTI. She was given Macrobid. CT Scan Abdomen showed 1 mm nonobstructing nephrolithiasis, right kidney. Today reports symptoms have resolved. [facility] Medical History (Updated 05/02/25 @ 07:48 by Mariely Bah NP) Flank pain Graves disease Graves' eye disease Pituitary microadenoma Psychogenic nonepileptic seizure Hyperthyroidism Essential hypertension Breast pain, left Overweight (BMI 25.0-29.9) Heavy menses Chronic constipation GERD without esophagitis Anemia HTN (hypertension) Anxiety Surgical History History of tubal ligation H/O tooth extraction (~12/10/22) H/O: Family History Paternal Aunt Breast cancer, Onset Age: 35 Maternal Aunt Breast cancer, Onset Age: 40 Other Diabetes High cholesterol Hypertension Social History Housing: House Alcohol intake: never Patient Tobacco Use Status: Never used Tobacco Tobacco use type: Cigarette e-Cigarette/Vaping Use: Never Used Second Hand Smoke Exposure: No service: No Current occupational status: unemployed Cognitive needs: No Hearing needs: No Vision needs: Yes (Glasses) Questionnaire PHQ-9 Over the last 2 weeks, how often have you been bothered by any of the following problems? 1. Little interest or pleasure in doing things: not at all 2. Feeling down, depressed, or hopeless: not at all 3. Trouble falling or staying asleep, or sleeping too much: not at all 4. Feeling tired or having little energy: not at all 5. Poor appetite or overeating: several days 6. Feeling bad about yourself - or that you are a failure or have let yourself or your family down: not at all 7. Trouble concentrating on things, such as reading the newspaper or watching television: not at all 8. Moving or speaking so slowly that other people could have noticed. Or the opposite - being so fidgety or restless that you have been moving around a lot more than usual: not at all 9. Thoughts that you would be better off or of hurting yourself in some way: not at all Total score: 1 Source: Developed by Drs. Fabio Johnson, Trinity Anand, Neymar Peterson and colleagues, with an educational sherley from [employer]. Thrive Questionnaire Date Thrive assessed: 04/09/25 I am a: Patient What is your living situation today?: I have a steady place to live Within the past 12 months, did the food you bought not last and you didn't have the money to get more?: Never true Within the past 12 months, did you worry whether your food would run out before you got money to buy more?: Never true Do you have trouble paying for medicines?: No Do you have trouble getting transportation to medical appointments?: No Do you have trouble paying your heating and electricity bill?: No Do you have trouble taking care of your child, family member or friend?: No Do you have trouble with day-to-day activities such as bathing, preparing meals, shopping, managing finances, etc.?: No Are you currently unemployed and looking for a job?: Yes Are you interested in more education?: No Please select the resources that you would like help with: None Currently or been in a relationship where the following occur: No concerns reported THRIVE Score: 0 AUDIT C Alcohol Use Questionnaire (AUDIT-C) 1. How often do you have a drink containing alcohol?: Never 3. How often do you have six or more drinks on one occasion?: Never Total Score: 0 YULIYA-7 AMB Questionnaire YULIYA-7 Date YULIYA - 7 assessed: 04/09/25 Feeling nervous, anxious, or on edge: 0 = Not at all Not being able to stop or control worryin = Not at all Worrying too much about different things: 0 = Not at all Trouble relaxin = Not at all Being so restless that it is hard to sit still: 0 = Not at all Becoming easily annoyed or irritable: 0 = Not at all Feeling afraid as if something awful might happen: 0 = Not at all Total YULIYA-7 score (0-4 normal; 5-9 mild; 10-14 moderate; 15-21 severe): 0 Source: Developed by Drs. Fabio Johnson, Trinity Anand, Neymar Peterson and colleagues, with an educational sherley from [employer]. Review of Systems Const All systems reviewed & are unremarkable except as noted in HPI and below Physical exam (Primary Care) Vital Signs: Last Vital Signs Temp 97.3 F 05/02/25 07:34 Pulse 88 05/02/25 07:34 BP 116/82 05/02/25 07:34 Pulse Ox 99 05/02/25 07:34 Oxygen Delivery Method Room Air 05/02/25 07:34 BMI result Body Mass Index 34.4 Tobacco/Smoking Status: Tobacco use Status Tobacco use date assessed 05/02/25 05/02/25 07:40 Patient Tobacco Use Status Never used Tobacco 05/02/25 07:40 Tobacco use type Cigarette 05/02/25 07:40 e-Cigarette/Vaping Use Never Used 05/02/25 07:40 PHQ-9: PHQ-9 Score PHQ-9: Total score 1 05/02/25 07:40 Thrive Assessment: Date of Thrive Assessment Date Thrive assessed 04/09/25 05/02/25 07:40 Currently or been in a relationship where the following occur: No concerns reported Const General: no acute distress Nutritional Appearance: overweight Orientation/consciousness: patient oriented x3 Resp Effort & Inspection: normal respiratory effort Auscultation: clear to auscultation bilaterally Cardio Heart sounds: S1 normal heart sound present and S2 normal heart sound present Neuro General: patient oriented x3, gait normal and moves all extremities Coding Level of Care Code Est Pt Level 4 (51456) Diagnoses Flank pain R10.9 Time Spent (min) 20 Assessment & Plan Assessment & Plan (1) Flank pain: Code(s): R10.9 - Unspecified abdominal pain Category: Medical Plan: Pain resolved. No Urinary Symptoms.
== END 2025-05-02 07:47 | disposition home or self-care (01) ==
LOC: HO.HMCH 07:21
PROVIDERS: PCP Internal Medicine; Visit Provider Nurse Practitioner Family
DX: R10.9 Unspecified abdominal pain (principal)

== ENCOUNTER → 2025-05-02 07:20 | Outpatient (BNVA) | payer OTHER, SELFPAY | PROVIDERS: PCP Internal Medicine; Visit Provider Nurse Practitioner Family | DX: R10.9 Unspecified abdominal pain (principal) | CPT/HCPCS: 99212 ==

== ENCOUNTER 2025-05-19 13:47 | Emergency (ER) | payer OTHER, SELFPAY ==
[2025-05-19 13:54] VITALS: BP 111/54; BP 144/76; PULSE 80; PULSE 88; RESP 16; TEMP 37; O2SAT 97; O2SAT 98; BMI 35.9
[2025-05-19 14:38] LABS: MANUAL DIFF FLAG NO
[2025-05-19 14:39] LABS: Hematocrit 36.1 % (37.0-47.0); Hemoglobin 11.1 g/dl (12.0-16.0); Imm Gran Abs Auto 0.06 X10*3/uL (0.00-0.03); Imm Gran Pct Auto 0.6 % (0.0-0.4); Lymphocytes Absolute Auto 2.4 X10*3/uL (1.2-4.9); Mean Corpuscular HGB Conc 30.7 g/dl (31.0-35.0); Mean Corpuscular Hemoglobin 21.5 pg (27.0-33.0); Mean Corpuscular Volume 69.8 fL (80.0-98.0); NRBC Abs Auto 0.000 X10*3/uL (0.0-0.012); NRBC Pct Auto 0.0 /100WBC (0.0-0.2); Platelet Count 336 X10*3/uL (160-400); Red Blood Count 5.17 X10*6/uL (4.20-5.50); White Blood Count 10.4 X10*3/uL (4.8-10.8)
--- NOTE | 2025-05-19 14:46 | ED.GENADULT ---
HPI - General Adult General Chief complaint: Seizure Stated complaint: seizure Time Seen by Provider: 05/19/25 14:33 Source: EMS and case assistant Mode of arrival: EMS Limitations: language barrier History of Present Illness ED Provider: HPI narrative: 30-year-old woman presenting from home for reports of seizure witnessed by a daughter, history of psychogenic nonepileptic seizures, laid down before it happened as she felt it coming on, history of migraines, follows with Neurology, sometimes has loss of bowel or bladder during these episodes nothing at this time, positive for COVID past 3 4 days, tested at home. At the time my evaluation with the pupil personnel worker states had mild headache, no nausea no vomiting, had intermittent lower extremity edema that is states has since resolved. Related Data Previous Rx's ?Medication ?Instructions ?Recorded miscellaneous medical supply #1 ea 03/30/23 (Blood Pressure Cuff) amlodipine 10 mg tablet 10 mg PO DAILY 90 days #90 tabs 10/14/24 propranolol 10 mg tablet 15 mg (1.5 x 10 mg) PO BID 90 days 10/14/24 #270 tabs triamcinolone acetonide 55 mcg 2 spray intranasal BEDTIME #16.9 mL 01/01/25 nasal spray aerosol lidocaine 5 % topical patch 1 patch topical DAILY #15 ea 02/25/25 naratriptan 2.5 mg tablet See Rx Instructions PO .COMPLEX 03/27/25 PRN migraine headache 30 days #12 tabs riboflavin (vitamin B2) 400 mg 400 mg PO DAILY 30 days #30 tabs 03/27/25 tablet ofloxacin 0.3 % ear drops 10 drp otic (ears) BID 14 days #10 04/09/25 mL sucralfate 1 gram tablet 1 g PO Q6H 14 days #56 tabs 04/17/25 ferrous sulfate 300 mg (60 mg 300 mg (5 mL) PO DAILY #500 mL 05/19/25 iron)/5 mL oral liquid Allergies Allergy/AdvReac Type Severity Reaction Status Date / Time morphine Allergy Severe Vomiting Verified 05/19/25 13:57 chlorthalidone Allergy Intermediate Chest Pain Verified 05/19/25 13:57 glucagon Allergy Intermediate Unknown Verified 05/19/25 13:57 guaifenesin (From Mucinex) Allergy Intermediate Unknown Verified 05/19/25 13:57 latex Allergy Intermediate Rash Verified 05/19/25 13:57 amoxicillin Allergy Mild Rash Verified 05/19/25 13:57 clavulanic acid (From Allergy Unknown Unknown Verified 05/19/25 13:57 Augmentin) cyclobenzaprine (From Allergy Palpitation Verified 05/19/25 13:57 Flexeril) s escitalopram Allergy Palpitation Verified 05/19/25 13:57 s hydralazine Allergy Nausea and Verified 05/19/25 13:57 Vomiting lorazepam (From Ativan) Allergy Palpitation Verified 05/19/25 13:57 s nifedipine Allergy Intermediate Unknown Uncoded 05/19/25 13:57 Review of Systems Constitutional: Constitutional: Reports as per HPI [facility] Past Medical History Medical History (Updated 05/19/25 @ 15:06 by Niko Martinez DO) Flank pain Graves disease Graves' eye disease Pituitary microadenoma Psychogenic nonepileptic seizure Hyperthyroidism Essential hypertension Breast pain, left Overweight (BMI 25.0-29.9) Heavy menses Chronic constipation GERD without esophagitis Anemia HTN (hypertension) Anxiety Surgical History History of tubal ligation H/O tooth extraction (~12/10/22) H/O: Family History Family History Paternal Aunt Breast cancer, Onset Age: 35 Maternal Aunt Breast cancer, Onset Age: 40 Other Diabetes High cholesterol Hypertension Social History Social History Housing: House Alcohol intake: never Patient Tobacco Use Status: Never used Tobacco Tobacco use type: Cigarette e-Cigarette/Vaping Use: Never Used Second Hand Smoke Exposure: No Advance Directives: No Advance Directives Information Provided: Yes service: No Current occupational status: unemployed Cognitive needs: No Hearing needs: No Vision needs: Yes (Glasses) Physical Exam ED Vital Signs: Vital Signs - 24 hr 05/19/25 13:54 Temperature 98.6 F Pulse Rate 88 Respiratory Rate 16 Blood Pressure 111/54 L Pulse Oximetry 97 Oxygen Delivery Method Room Air BMI result Body Mass Index 35.9 Const Other: Gen: ?Overall well-appearing patient HEENT: Pupils 3 mm reactive bilaterally, no oropharyngeal trauma noted Neck: Supple, no LAD CV: RRR, no obvious murmurs appreciated Resp: ?No wheezing rales rhonchi no stridor moving air well Abd: ?Bowel sounds are present, no tenderness no rebound no rigidity MSK: FROM, strength 5/5 all extremities, no edema noted in lower extremities Skin: Warm, dry, intact, Neuro: ?Alert and oriented x3, moving upper and lower extremities symmetrically, no obvious facial asymmetry noted, no dysmetria upper or lower extremities Medical Decision Making Medical Decision Making [facility] Narrative: 2:54 PM 05/19/2025 (Dr. Niko Martinez): Overall patient is well-appearing. There was no evidence of any trauma associated with the psychogenic nonepileptic seizure, no evidence of oropharyngeal injury, she does have COVID reportedly, she is nonfebrile, lungs are clear, no neurologic deficits, did not feel further imaging is indicated such as CAT scan, I reviewed her outpatient records with a neurologist, she has migraines, psychogenic nonepileptic seizures and multiple medications that she takes for migraine prevention. I will obtain ECG to make sure this was not a syncopal episode underlying dysrhythmia Differential Diagnosis Differential Diagnoses: The differential diagnosis associated with the presentation includes (Psychogenic nonepileptic seizure, dehydration, syncope, pneumonia, head injury) Admission/Observation Consideration of admission/observation: Escalation of care including admission/observation considered Lab Data [facility] Lab Attestation statement: I reviewed the patient's lab results. 05/19/25 14:34 05/19/25 14:34 Labs: Lab Results 05/19/25 Range/Units 14:34 WBC 10.4 (4.8-10.8) X10*3/uL RBC 5.17 (4.20-5.50) X10*6/uL Hgb 11.1 L (12.0-16.0) g/dl Hct 36.1 L (37.0-47.0) % MCV 69.8 L (80.0-98.0) fL MCH 21.5 L (27.0-33.0) pg MCHC 30.7 L (31.0-35.0) g/dl RDW 15.6 (11.0-16.0) % Plt Count 336 (160-400) X10*3/uL MPV 10.2 (9.4-12.3) fL Immature Gran % (Auto) 0.6 H (0.0-0.4) % Neut % (Auto) 67.5 (45-73) % Lymph % (Auto) 22.6 (20-40) % Baldwin % (Auto) 4.9 (2-11) % Eos % (Auto) 3.8 (0-4) % Baso % (Auto) 0.6 (0-2) % Lymph # (Auto) 2.4 (1.2-4.9) X10*3/uL Baldwin # (Auto) 0.5 (0.1-1.2) X10*3/uL Eos # (Auto) 0.4 (0.0-0.4) X10*3/uL Baso # (Auto) 0.1 (0.0-0.2) X10*3/uL Abs Immat Gran (auto) 0.06 H (0.00-0.03) X10*3/uL Absolute Neuts (auto) 7.0 (2.0-8.3) x10*3/uL Absolute Nucleated RBC 0.000 (0.0-0.012) X10*3/uL Nucleated RBC % (auto) 0.0 (0.0-0.2) /100WBC Sodium 140 (135-145) mmol/L Potassium 3.7 (3.3-5.1) mmol/L Chloride 105 (96-108) mmol/L Carbon Dioxide 26 (22-29) mmol/L Anion Gap 13 (12-20) BUN 10 (9-16) mg/dL Creatinine 0.65 (0.5-1.4) mg/dL Estim Creat Clear Calc 120.1 Estimated GFR > 60 Random Glucose 93 (60-115) mg/dL Calcium 9.2 (8.4-10.2) mg/dL Magnesium 2.2 (1.6-2.6) mg/dL Total Bilirubin 0.2 (0.0-1.0) mg/dL AST 23 (5-31) U/L ALT 20 (0-31) U/L Alkaline Phosphatase 94 (39-117) U/L Total Protein 8.1 H (6.5-8.0) g/dL Albumin 4.7 (3.5-5.0) g/dL Independent Interpretation I performed an independent interpretation of an: EKG (80 beats per minute otherwise normal ECG without dysrhythmia, AV vashti blocks or ST-T changes to suspect underlying ACS, my independent interpretation) Discharge Plan Discharge Clinical Impression: Psychogenic nonepileptic seizure, Microcytic anemia, COVID-19 virus infection Additional Instructions: Evaluated with a report of seizure activity at home with a history of psychogenic nonepileptic seizures, also reporting to be COVID positive, physical exam today reassuring without any evidence of trauma, or neurologic deficits, vital signs are stable Blood work reassuring, EKG without any underlying issues Patient has had anemia for a long time I am not sure if she is on iron supplements but I recommend iron supplements to treat anemia looks like it is likely iron-deficiency anemia Continue to follow up with your PCP and neurologist in take your or regular medications at home Prescriptions: New ferrous sulfate 300 mg (60 mg iron)/5 mL liquid 300 mg PO DAILY Qty: 500 0RF No Action (DME) Blood Pressure Cuff Misc See Rx Instructions .ROUTE .MEDSUPPLY Qty: 1 0RF Rx Instructions: As directed triamcinolone acetonide 55 mcg aerosol,spray 2 spray intranasal BEDTIME Qty: 16.9 0RF Rx Instructions: administer into each nostril lidocaine 5 % adhesive patch,medicated 1 patch topical DAILY Qty: 15 0RF Rx Instructions: leave on most painful area for up to 12 hrs sucralfate 1 gram tablet 1 g PO Q6H 14 Days Qty: 56 0RF naratriptan 2.5 mg tablet See Rx Instructions PO .COMPLEX PRN (Reason: migraine headache) 30 Days Qty: 12 6RF Rx Instructions: take 1/2 - 1 tab at onset of headache; if no relief may repeat 1 tab after at least 4 hrs; max = 2 tabs/24 hrs orally PRN; riboflavin (vitamin B2) 400 mg tablet 400 mg PO DAILY 30 Days Qty: 30 6RF propranolol 10 mg tablet 15 mg PO BID 90 Days Qty: 270 0RF amlodipine 10 mg tablet 10 mg PO DAILY 90 Days Qty: 90 0RF ofloxacin 0.3 % drops 10 drp otic (ears) BID 14 Days Qty: 10 0RF Referrals: Jeffy Gutierrez MD [Primary Care Provider, Internal Medicine] - 10 days Print Language: Kenyan
[2025-05-19 14:54] LABS: Alanine Aminotransferase 20 U/L (0-31); Albumin Level 4.7 g/dL (3.5-5.0); Alkaline Phosphatase 94 U/L (39-117); Anion Gap 13 (12-20); Aspartate Amino Transferase 23 U/L (5-31); Blood Urea Nitrogen 10 mg/dL (9-16); Calcium 9.2 mg/dL (8.4-10.2); Carbon Dioxide 26 mmol/L (22-29); Chloride 105 mmol/L (96-108); Creatinine Clr Calc Pharmacy 120.1; Estimated Glomerular Filt Rate > 60; Magnesium 2.2 mg/dL (1.6-2.6); Potassium 3.7 mmol/L (3.3-5.1); Sodium 140 mmol/L (135-145); Total Protein 8.1 g/dL (6.5-8.0)
--- NOTE | 2025-05-19 15:00 | ECG_ITS ---
Test Reason : SEIZURE Blood Pressure : */* mmHG Vent. Rate : 80 BPM Atrial Rate : 80 BPM P-R Int : 162 ms QRS Dur : 106 ms QT Int : 380 ms P-R-T Axes : 52 31 18 degrees QTcB Int : 438 ms Normal sinus rhythm Minimal voltage criteria for LVH, may be normal variant ( R in aVL ) Borderline ECG When compared with ECG of 17-Apr-2025 08:14, No significant change was found Referred By: Niko Martinez Electronically Signed By: TERE MELLO MD
[2025-05-19 16:06] VITALS: BP 110/69; PULSE 92; RESP 16; TEMP 36.9; O2SAT 99
--- OUTSIDE RECORDS SUMMARY | 2025-05-19 18:18 | XMS_ITS | Clinical Summary ---
Author Organization [facility] Address [address] [place] [address] Care Team Providers Care Sock Mender Name Role Phone Ref, Has No Pcp Or Primary Care Provider Unavail able Allergies Active Allergy Reactions Criticality Noted Date [...] of 3 - 19+ 3-dose series) 2013 Alcohol/Substance Use Screening 09/11/2024 Depression Screening and Follow-Up 09/11/2024 Social Drivers of Health Annual Screening 09/11/2024 COVID-19 Vaccine (3 - 2024-2 6 season) 2025 08/12/2021, 04/02/2021 Influenza Vaccine (#1) 2025 , 06/04/2019 DTaP,Tdap,and Td Vaccines (3 - Td or Tdap) 06/25/2034 06/25/2024, 05/21/2019 RSV Vaccine (60+ years old and patients) (1 - 1-dose 75+ series) 2069 Pneumococcal Vaccine: Pediatric (0-5 Years) and At-Risk Patients (6-50 Years) Aged Out 07/09/2019 No longer eligible based on patient's age to complete [place] [id number] [employer] Care Teams Sock Mender Relationship Specialty Start Date End Date Ref, Has No Pcp Or DO NOT EDIT THIS RECORD VIA PROVIDER ON THE FLY PCP - General Medical Record Administrator 11/17/24
--- OUTSIDE RECORDS SUMMARY | 2025-05-19 18:18 | XMS_ITS | Clinical Summary ---
Author Organization [employer] [facility] ity Address [address] [place] [address] Care Team Providers Care Lending Consultant Name Role Phone Jeffy Gutierrez MD Primary Care Provider [phone] Surgical History Surgery Date Site/Laterality Comments SECTION [...] 08/14/2022 Hypertension/CHF/CAD Annual BMP Blood Test 04/05/2024 Depression Screening 09/11/2024 COVID-19 Vaccine (1 - 2023-2 5 season) 2025 Influenza Vaccine (#1) 2025 HIB Vaccines Aged [...] Documents on File Type Date Recorded Patient Audio Technician Expl anation Health Care Decision (hx) 08/30/2023 HE ALTH CARE PROXY Health Care Decision (hx) 08/30/2023 HE ALTH CARE PROXY Health Care Decision (hx) 08/30/2023 HE ALTH CARE PROXY Care Teams Lending Consultant Relationship Specialty Start Date End Date Jeffy Gutierrez MD [address] [place] [address] [address] JO-ANN Black PCP - General 10/25/23
--- OUTSIDE RECORDS SUMMARY | 2025-05-19 18:18 | XMS_ITS | Clinical Summary ---
Author Organization [facility] Address [address] [address] Phone Care Team Providers Care Remedial Teacher Name Role Phone Pcp, Unknown Primary Care [...] on file Insurance [facility] [employer] [facility] [place] [address] Care Teams Remedial Teacher Relationship Specialty Start Date End Date Pcp, Unknown PCP - General 11/15/22 Additional Source Comments The information contained in this document represents components of the legal health record. It is not the complete legal health record.[facility]
== END 2025-05-19 16:07 | disposition home or self-care (01) ==
PROVIDERS: Physician Assistant Medical; Emergency Provider Emergency Medicine; PCP Internal Medicine
DX: U07.1 COVID-19 (principal); F44.5 Conversion disorder with seizures or convulsions; D50.8 Other iron deficiency anemias
CPT/HCPCS: 36415; 80053; 83735; 85025; 93005; 99283

== ENCOUNTER → 2025-05-19 15:00 | Outpatient (BNV) | payer OTHER, SELFPAY | PROVIDERS: Emergency Provider Emergency Medicine; PCP Internal Medicine; Visit Provider Internal Medicine Cardiovascular Disease | DX: R53.1 Weakness (principal) | CPT/HCPCS: 93010 ==

== ENCOUNTER 2025-05-23 09:14 | Outpatient (AMB) | payer OTHER, SELFPAY ==
[2025-05-23 09:18] VITALS: BP 108/84; PULSE 80; TEMP 36.9; O2SAT 100; BMI 35.0
--- NOTE | 2025-05-23 09:18 | AM.OFFWIN_ITS ---
Intake Vital Signs 05/23/25 09:18 Height 5 ft Weight 179 lb BMI 35.0 BP 108/84 Blood Pressure Location Lt brachial Position Sitting Pulse 80 Pulse Source Pulse Oximeter Temp 98.5 F Temp Source Oral Pulse Oximetry (%) 100 Oxygen Delivery Method Room Air Intake Visit Reasons: EP chest pain, head pain, feeling hot Intake Note: pt presents with chest burning with on/off cold feeling and sharp pains with sporadic arm pain, head and ears feel hot- all s/s started yesterday. Also notes bilateral feet swelling yesterday only. Patient Tobacco Use Status: Never used Tobacco Allergies morphine Allergy (Severe, Verified 05/23/25 09:19) Vomiting chlorthalidone Allergy (Intermediate, Verified 05/23/25 09:19) Chest Pain glucagon Allergy (Intermediate, Verified 05/23/25 09:19) Unknown guaifenesin (From Mucinex) Allergy (Intermediate, Verified 05/23/25 09:19) Unknown latex Allergy (Intermediate, Verified 05/23/25 09:19) Rash amoxicillin Allergy (Mild, Verified 05/23/25 09:19) Rash clavulanic acid (From Augmentin) Allergy (Unknown, Verified 05/23/25 09:19) Unknown cyclobenzaprine (From Flexeril) Allergy (Verified 05/23/25 09:19) Palpitations escitalopram Allergy (Verified 05/23/25 09:19) Palpitations hydralazine Allergy (Verified 05/23/25 09:19) Nausea and Vomiting lorazepam (From Ativan) Allergy (Verified 05/23/25 09:19) Palpitations nifedipine Allergy (Intermediate, Uncoded 05/19/25 13:57) Unknown Do you need a note to return to daycare/school/sports/work: No HPI EP chest pain, head pain, feeling hot HPI Details This is a 30-year-old female patient who presents to the walk-in clinic today with report of chest pain/pressure which occurred yesterday, in addition to several other complaints. On 05/19 she was evaluated at the [facility] ED for Psychogenic nonepileptic seizure. At the time she was 3-4 days post Covid +test. She was found to be somewhat anemic but otherwise findings and exam were reassuring. She states that yesterday she experienced an episode of weakness/dizziness and feeling of heat and strong pressure in the left side of her chest, radiating to her shoulders and causing cramping in her hands. Denies any respiratory complaints. She recently started a 30-day holter monitor for palpitations, however she was unable to tolerate the adhesives for he monitor and removed that after 3 days. Notes intermittent lower extremity edema. None at current time. History of Graves disease. Seeing endocrinology on Monday, 05/26. She feels that similar symptoms occur when her thyroid levels are off . Denies any current pain, weakness, or dizziness. [facility] Medical History Flank pain Graves disease Graves' eye disease Pituitary microadenoma Psychogenic nonepileptic seizure Hyperthyroidism Essential hypertension Breast pain, left Overweight (BMI 25.0-29.9) Heavy menses Chronic constipation GERD without esophagitis Anemia HTN (hypertension) Anxiety Surgical History History of tubal ligation H/O tooth extraction (~12/10/22) H/O: Family History Paternal Aunt Breast cancer, Onset Age: 35 Maternal Aunt Breast cancer, Onset Age: 40 Other Diabetes High cholesterol Hypertension Social History Housing: House Alcohol intake: never Patient Tobacco Use Status: Never used Tobacco Tobacco use type: Cigarette e-Cigarette/Vaping Use: Never Used Second Hand Smoke Exposure: No service: No Current occupational status: unemployed Cognitive needs: No Hearing needs: No Vision needs: Yes (Glasses) Review of Systems Const All systems reviewed & are unremarkable except as noted in HPI and below Physical Exam Vital Signs: Last Vital Signs Temp 98.5 F 05/23/25 09:18 Pulse 80 05/23/25 09:18 BP 108/84 05/23/25 09:18 Pulse Ox 100 05/23/25 09:18 Oxygen Delivery Method Room Air 05/23/25 09:18 BMI result Body Mass Index 35.0 Const General: cooperative, healthy appearing, comfortable and no acute distress HEENT Head: Yes normal to inspection Ears: hearing grossly normal bilaterally and TM's normal bilaterally General nose exam: Normal external nose present Mouth: Normal oral and palatal mucosa present Neck Neck: Yes no lymphadenopathy Resp Effort & Inspection: normal respiratory effort Auscultation: clear to auscultation bilaterally Cardio Rate: regular rate Rhythm: regular rhythm Skin General skin exam: no rashes or lesions noted Extrem General: Yes capillary refill normal and Yes no clubbing, cyanosis or edema Psych Appearance: grossly normal Mental Status: mental status grossly normal Speech and movement: Normal speech and movement present Assessment & Plan Assessment & Plan (1) Sensation of chest pressure: Code(s): R07.89 - Other chest pain Plan: 30-year-old female patient with past medical history significant for palpitations, atypical chest pain, benign paroxysmal vertigo, Graves disease, seizure disorder, recent Covid 19 infection. She had intermittent chest pressure yesterday with some associated dizziness and weakness. No symptoms at this time. VS are stable. EKG was done in the office and appears normal/unchanged compared to EKG done while in ED on 05/[address] Morel. She feels symptoms are related to thyroid - she sees endocrinology on Saturday 05/26 for this. Recent labs during ED visit were normal. Her assessment at this time is unremarkable. We discussed that she should follow-up with endocrinology and PCP, and in the meantime, if chest symptoms occur, she should go to the emergency department for further evaluation. Patient was reassured with EKG findings, and verbalizes understanding and agrees to plan discussed. Traffic Control Supervisor [id number] Orders: Orders AMB EKG-In Office Today R07.89 - Other chest pain Coding Level of Care Code Est Pt Level 4 (99984) Diagnoses Sensation of chest pressure R07.89
--- OUTSIDE RECORDS SUMMARY | 2025-05-23 10:09 | XMS_ITS | Clinical Summary ---
Author Organization [facility] Address [address] [address] Phone Care Team Providers Care Grid Molder Name Role Phone Pcp, Unknown Primary Care [...] Medical Devices Not on file Insurance [facility] [employer] [facility] [place] [id number] Care Teams Grid Molder Relationship Specialty Start Date End Date Pcp, Unknown PCP - General 11/15/22 Additional Source Comments The information contained in this document represents components of the legal health record. It is not the complete legal health record.[facility]
--- OUTSIDE RECORDS SUMMARY | 2025-05-23 10:09 | XMS_ITS | Clinical Summary ---
Author Organization [facility] Address [address] [place] [address] Care Team Providers Care Environmental Engineering Manager Name Role Phone Ref, Has No Pcp [...] to complete [place] [address] [place] [address] [employer] Care Teams Environmental Engineering Manager Relationship Specialty Start Date End Date Ref, Has No Pcp Or DO NOT EDIT THIS RECORD VIA PROVIDER ON THE FLY PCP - General Central Office Worker 11/17/24
--- OUTSIDE RECORDS SUMMARY | 2025-05-23 10:09 | XMS_ITS | Clinical Summary ---
Author Organization [facility] ity Address [address] [place] [address] Care Team Providers Care Surfacer Operator Name Role Phone Jeffy Gutierrez MD Primary Care Provider [phone] Surgical History Surgery Date Site/Laterality Comments SECTION [...] Documents on File Type Date Recorded Patient Sodium Chlorite Operator Expl anation Health Care Decision (hx) 08/30/2023 HE ALTH CARE PROXY Health Care Decision (hx) 08/30/2023 HE ALTH CARE PROXY Health Care Decision (hx) 08/30/2023 HE ALTH CARE PROXY Care Teams Surfacer Operator Relationship Specialty Start Date End Date Jeffy Gutierrez MD [address] [place] [address] Dr [address] JO-ANN Black PCP - General 10/25/23
== END 2025-05-23 10:17 | disposition home or self-care (01) ==
PROVIDERS: PCP Internal Medicine; Visit Provider Nurse Practitioner Family
DX: R07.89 Other chest pain (principal)

== ENCOUNTER → 2025-05-23 09:14 | Outpatient (BNVA) | payer OTHER, SELFPAY | PROVIDERS: PCP Internal Medicine; Visit Provider Nurse Practitioner Family | DX: R07.89 Other chest pain (principal); R56.9 Unspecified convulsions; R60.9 Edema, unspecified | CPT/HCPCS: 93005; 99212 ==

== ENCOUNTER 2025-06-05 08:57 | Emergency (ER) | payer OTHER, SELFPAY ==
--- NOTE | 2025-06-05 09:00 | ED_ITS ---
HPI - General Adult General Chief complaint: Animal Bite Stated complaint: Rat bite Time Seen by Provider: 06/05/25 09:00 Source: patient and musical performer (all interactions with this patient were facilitated with an [facility] hazardous material specialist) Mode of arrival: ambulatory Limitations: language barrier (all interactions with this patient were facilitated with an [facility] hazardous material specialist) History of Present Illness ED Provider: Madai Spicer PA-C HPI narrative: Patient is a 30 year old assigned female at with a history of Graves disease, psychogenic nonepileptic seizure, anxiety, HTN, GERD, and syncopal episodes presenting to the emergency department today with a right lower leg rash. Patient states that yesterday she had an encounter with a rat where the rat was with baby rats and lunged at her right lower extremity but did NOT bite her. Patient states that she went to the urgent care and they examined the skin and said everything was OK, with no treatment recommendations. Patient states that this morning she noticed right lower extremity red spots that were itchy. Patient denies any other complaints at this time. Related Data Previous Rx's ?Medication ?Instructions ?Recorded miscellaneous medical supply #1 ea 03/30/23 (Blood Pressure Cuff) amlodipine 10 mg tablet 10 mg PO DAILY 90 days #90 t abs 10/14/24 propranolol 10 mg tablet 15 mg (1.5 x 10 mg) PO BID 9 0 days 10/14/24 #270 tabs triamcinolone acetonide 55 mcg 2 spray intranasal BEDT SERGIO #16.9 mL 01/01/25 nasal spray aerosol naratriptan 2.5 mg tablet See Rx Instructions PO .COMP ALVARO 03/27/25 PRN migraine headache 30 days #12 tabs riboflavin (vitamin B2) 400 mg 400 mg PO DAILY 30 days #30 tabs 03/27/25 tablet ofloxacin 0.3 % ear drops 10 drp otic (ears) BID 14 da ys #10 04/09/25 mL sucralfate 1 gram tablet 1 g PO Q6H 14 days #56 tabs 04/17/25 ferrous sulfate 300 mg (60 mg 300 mg (5 mL) PO DAILY # 500 mL 05/19/25 iron)/5 mL oral liquid prednisone 20 mg tablet 40 mg (2 x 20 mg) PO DAILY C OPD 06/05/25 exacerbation 5 days #10 tabs Allergies Allergy/AdvReac Type Severity Reaction Status Date / Time morphine Allergy Severe Vomiting Verified 06/05/25 09:03 chlorthalidone Allergy Intermediate Chest Pain Verified 06/05/25 09:03 glucagon Allergy Intermediate Unknown Verified 06/05/25 09:03 guaifenesin (From Mucinex) Allergy Intermediate Unknown Verified 06/05/25 09:03 latex Allergy Intermediate Rash Verified 06/05/25 09:03 amoxicillin Allergy Mild Rash Verified 06/05/25 09:03 clavulanic acid (From Allergy Unknown Unknown Verified 06/05/25 09:03 Augmentin) cyclobenzaprine (From Allergy Palpitation Verified 06/05/25 09:03 Flexeril) s escitalopram Allergy Palpitation Verified 06/05/25 09:03 s hydralazine Allergy Nausea and Verified 06/05/25 09:03 Vomiting lorazepam (From Ativan) Allergy Palpitation Verified 06/05/25 09:03 s nifedipine Allergy Intermediate Unknown Uncoded 05/19/25 13:57 Review of Systems 2 Constitutional: Constitutional: Reports as per HPI Eyes: Eyes: Reports as per HPI ENT: Reports as per HPI Cardiovascular: Cardiovascular: Reports as per HPI Respiratory: Respiratory: Reports as per HPI Gastrointestinal: Gastrointestinal: Reports as per HPI Genitourinary: Genitourinary: Reports as per HPI Musculoskeletal: Musculoskeletal: Reports as per HPI Integumentary/Breasts: Skin/Breast: Reports as per HPI Neurologic: Reports as per HPI Psychiatric: Psychiatric: Reports as per HPI Endocrine: Endocrine: Reports as per HPI Hematologic/Lymphatic: Hematologic/Lymphatic: Reports as per HPI Allergic/Immunologic: Allergic/Immunologic: Reports as per HPI [facility] Past Medical History Attestation statement: The following information was validated with the patient. Source: old records reviewed and nursing notes reviewed Medical History Flank pain Graves disease Graves' eye disease Pituitary microadenoma Psychogenic nonepileptic seizure Hyperthyroidism Essential hypertension Breast pain, left Overweight (BMI 25.0-29.9) Heavy menses Chronic constipation GERD without esophagitis Anemia HTN (hypertension) Anxiety Surgical History History of tubal ligation H/O tooth extraction (~12/10/22) H/O: Family History Family History Paternal Aunt Breast cancer, Onset Age: 35 Maternal Aunt Breast cancer, Onset Age: 40 Other Diabetes High cholesterol Hypertension Social History Social History Housing: House Alcohol intake: never Patient Tobacco Use Status: Never used Tobacco Tobacco use type: Cigarette e-Cigarette/Vaping Use: Never Used Second Hand Smoke Exposure: No Advance Directives: No Advance Directives Information Provided: No Do you have a plan to hurt others: No Plan service: No Current occupational status: unemployed Cognitive needs: No Hearing needs: No Vision needs: Yes (Glasses) Physical Exam ED Vital Signs: Vital Signs - 24 hr 06/05/25 09:01 06/05/25 09:44 Temperature 97.5 F 97.5 F Pulse Rate 90 90 Respiratory Rate 18 18 Blood Pressure 132/77 132/77 Pulse Oximetry 99 99 Oxygen Delivery Method Room Air Room Air BMI result Body Mass Index 34.8 Const General: cooperative, no acute distress, alert and awake Nutritional Appearance: well nourished Orientation/consciousness: patient oriented x3 HENMT Head: Yes normal to inspection and Yes atraumatic Ears: hearing grossly normal bilaterally and external ears normal General nose exam: Normal external nose present, no nasal discharge noted and no epistaxis Face and sinus: Yes normal facial exam, No abrasion and No laceration Mouth: Normal oral and palatal mucosa present, no drooling and no muffled voice Eyes General: appearance normal, both eyes and all related structures Periorbital: periorbital findings normal Eyelids: Yes eyelids normal Conjunctivae: conjunctivae normal Pupils: Equal, round and reactive pupils present EOM: EOMs intact bilaterally Neck Neck: Yes normal visual inspection and Yes full ROM Resp Effort & Inspection: normal respiratory effort and able to speak in complete sentences Neuro General: patient oriented x3, moves all extremities and CN's II-XI intact bilaterally Cranial nerves: Yes Equal, round and reactive pupils present Cognition (Neuro): normal cognition Extrem Other: General: Yes full ROM and Yes capillary refill normal Psych Appearance: grossly normal Mental Status: mental status grossly normal Affect: normal affect Attitude: cooperative Thought process: Normal thought process present Thought content: Normal thought content present Insight: Good insight present (Psych) Medications Administered Discontinued Medications Generic Name Dose Route Start Last Admin Trade Name Freq PRN Reason Stop Dose Admin Methylprednisolone Sodium Succinate 60 mg 06/05/25 09:27 06/05/25 09:39 Methylprednisolone Sod Succ 125 Mg/2 Ml Vial IM 06/05/25 09:28 60 mg ONCE ONE Administration Medical Decision Making Medical Decision Making [facility] Narrative: Patient is a 30 year old assigned female at with a history of Graves disease, psychogenic nonepileptic seizure, anxiety, HTN, GERD, and syncopal episodes presenting to the emergency department today with a right lower leg rash. Patient's physical exam was as noted in the physical exam portion of this note and consistent with dermatitis. I am suspicious the patient is having a localized dermatitis secondary to her rat infested dwelling / presence of rats. Patient will be treated with corticosteroids which she states she has previously tolerated. I explained to the patient that she should avoid exposure to rodents. I explained my physical exam findings to the patient. I answered all questions asked by the patient. I stressed the importance of the patient taking her medication as directed (either prescribed or as the over the counter packaging recommends). I stressed the importance of the patient following up with her primary care provider. I stressed the importance of the patient returning to the emergency department immediately if her symptoms were to worsen or if she were to develop any dizziness, shortness of breath, difficulty breathing, chest pain, blurry vision, loss of vision, nausea, vomiting, abdominal pain, fever, chills, back pain, or any other complaints. Patient verbalized agreement and understanding with this treatment plan and discharge. Differential Diagnosis Differential Diagnoses: The differential diagnosis associated with the presentation includes Dermatitis Admission/Observation Consideration of admission/observation: Escalation of care including admission/observation considered Patient would have been admitted to the hospital had her clinical presentation warranted hospital admission. Discharge Plan Discharge Clinical Impression: Dermatitis Patient Disposition: Home, Self-Care Instructions: Dermatitis (ED) Additional Instructions: IF you are prescribed home medications and/or you are taking over the counter medications at home- it is very important you continue to do so as prescribed / directed unless told otherwise. SI le recetan medicamentos y/o est? tomando medicamentos de venta hussein, es muy importante que contin?e haci?ndolo seg?n lo recetado/indicado a menos que le indiquen lo contrario. Follow up with your primary care provider. Return to the emergency department immediately if your symptoms worsen or if you develop any dizziness, shortness of breath, difficulty breathing, chest pain, blurry vision, loss of vision, nausea, vomiting, abdominal pain, fever, chills, back pain, or any other complaints. Amisha?seguimiento?con garcia m?dico de atenci?n primaria. Acuda inmediatamente al servicio de urgencias si rosey s?ntomas empeoran o si presenta falta de aliento, dificultad para respirar, dolor tor?cico, mareos, aturdimiento, dolor de espalda, dolor abdominal, fiebre, escalofr?os o cualquier otro s?ntoma. Please see the information below about our Patient Portal. If you are not yet enrolled in the [facility] Patient Portal, you will receive an enrollment email invitation following your visit to any [facility] setting. You may also self-enroll in the Patient Portal by visiting our website: [email or web address] The following information is required to access the Patient Portal: - Your [facility] Medical Record Number - Your personal home email address (must match what is in your electronic medical record, Registration staff can assist with this) - Name - Date of Capabilities of the Patient Portal: - Message some providers - View upcoming appointments - Access your health summary, medical history, and visit history - View current conditions and allergies - View procedure and lab results - View your medications, including guidelines, side effects, and precautions - Complete pre-appointment questionnaires requested by your provider - Ready summary reports of your office visits and procedures To access the Patient Portal Mobile Mame, follow these directions: - Search [employer] in the Mame Store or D[employer] Store - Download the Mame - Search for [facility] - Enter your login/password Portal del paciente Si usted no esta inscrito en el portal de pacientes de [facility], recibira annelise invitacion de inscripcion despues de garcia visita al [facility] o al [facility] via correo electronico. Tambien puede inscribirse voluntariamente en el portal de pacientes visitando nuestra pagina web: [facility] [email or web address] [email or web address] La siguiente informacion sera requerida para acceder al portal: - Garcia charlie de historia medica de [facility] - Garcia direccion de correo electronico personal - Nombre - Fecha de nacimiento Capacidades: Las siguientes capacidades estan disponibles en el portal de pacientes: - Enviar mensajes a algunos doctores - Verificar proximas citas - Acceso a garcia historial de franko, registro medico e historial de visitas - Igor las condiciones actuales y alergias igor procedimientos y resultados del laboratorio - Igor rosey medicamentos, incluyendo las pautas - Efectos secundarios y precauciones - Completar o llenar formularios / cuestionarios de - Citas solicitadas por garcia doctor - Leer los resumenes de reportes medicos de rosey visitas y procedimientos [place] acceder a la aplicacion movil: - Bus[employer] en la Mame Store o D[employer] Store - Descargue la aplicacion - [facility] - Ingrese garcia nombre de usuario / Contrasena Prescriptions: New prednisone 20 mg tablet 40 mg PO DAILY 5 Days Qty: 10 0RF No Action (DME) Blood Pressure Cuff Misc See Rx Instructions .ROUTE .MEDSUPPLY Qty: 1 0RF Rx Instructions: As directed triamcinolone acetonide 55 mcg aerosol,spray 2 spray intranasal BEDTIME Qty: 16.9 0RF Rx Instructions: administer into each nostril sucralfate 1 gram tablet 1 g PO Q6H 14 Days Qty: 56 0RF ferrous sulfate 300 mg (60 mg iron)/5 mL liquid 300 mg PO DAILY Qty: 500 0RF naratriptan 2.5 mg tablet See Rx Instructions PO .COMPLEX PRN (Reason: migraine headache) 30 Days Qty: 12 6RF Rx Instructions: take 1/2 - 1 tab at onset of headache; if no relief may repeat 1 tab after at least 4 hrs; max = 2 tabs/24 hrs orally PRN; riboflavin (vitamin B2) 400 mg tablet 400 mg PO DAILY 30 Days Qty: 30 6RF propranolol 10 mg tablet 15 mg PO BID 90 Days Qty: 270 0RF amlodipine 10 mg tablet 10 mg PO DAILY 90 Days Qty: 90 0RF ofloxacin 0.3 % drops 10 drp otic (ears) BID 14 Days Qty: 10 0RF Referrals: Jeffy Gutierrez MD [Primary Care Provider, Internal Medicine] Interventions: ED Discharge Assessment Last Done: 06/05/25 09:44 Discharge Date/Time: 06/05/25 09:45 Print Language: Venezuelan
[2025-06-05 09:01] VITALS: BP 132/77; PULSE 90; RESP 18; TEMP 36.4; O2SAT 99; BMI 34.8
[2025-06-05 09:44] VITALS: BP 132/77; PULSE 90; RESP 18; TEMP 36.4; O2SAT 99
== END 2025-06-05 09:45 | disposition home or self-care (01) ==
PROVIDERS: Emergency Provider Emergency Medicine; PCP Internal Medicine
DX: L30.9 Dermatitis, unspecified (principal); R21 Rash and other nonspecific skin eruption; E05.00 Thyrotoxicosis with diffuse goiter without thyrotoxic crisis or storm
CPT/HCPCS: 96372; 99282; 99284; J2919

== ENCOUNTER 2025-07-10 15:23 | Outpatient (AMB) | payer OTHER, SELFPAY ==
[2025-07-10 15:28] VITALS: BP 150/80; PULSE 84; RESP 18; TEMP 36.2; O2SAT 99; BMI 36.2
--- NOTE | 2025-07-10 15:28 | MHC.PC.OV ---
Vital Signs 07/10/25 15:28 07/10/25 16:20 Height 5 ft Weight 185 lb 4 oz BMI 36.2 BP 150/80 H 134/82 Blood Pressure Location Lt brachial Lt brachial Position Sitting Sitting Respiration 18 Pulse 84 Pulse Source Pulse Oximeter Temp 97.1 F Temp Source Temporal Artery Scan Pulse Oximetry (%) 99 Oxygen Delivery Method Room Air Intake Visit Reasons: vertigo/heart palpitation/graves disease Spray Painter Helper Required: Yes Spray Painter Helper Name: [id number]/Omelia Accompanied by: Self / Same As Patient Allergies morphine Allergy (Severe, Verified 07/10/25 16:52) Vomiting chlorthalidone Allergy (Intermediate, Verified 07/10/25 16:52) Chest Pain glucagon Allergy (Intermediate, Verified 07/10/25 16:52) Unknown guaifenesin (From Mucinex) Allergy (Intermediate, Verified 07/10/25 16:52) Unknown latex Allergy (Intermediate, Verified 07/10/25 16:52) Rash amoxicillin Allergy (Mild, Verified 07/10/25 16:52) Rash clavulanic acid (From Augmentin) Allergy (Unknown, Verified 07/10/25 16:52) Unknown cyclobenzaprine (From Flexeril) Allergy (Verified 07/10/25 16:52) Palpitations escitalopram Allergy (Verified 07/10/25 16:52) Palpitations hydralazine Allergy (Verified 07/10/25 16:52) Nausea and Vomiting lorazepam (From Ativan) Allergy (Verified 07/10/25 16:52) Palpitations nifedipine Allergy (Intermediate, Uncoded 07/10/25 16:52) Unknown Medication List - Last Reconciled 07/10/25 by KALYAN Espinal amlodipine 10 mg PO DAILY 90 days ferrous sulfate 300 mg (5 mL) PO DAILY miscellaneous medical supply (Blood Pressure Cuff) As directed naratriptan take 1/2 - 1 tab at onset of headache; if no relief may repeat 1 tab after at least 4 hrs; max = 2 tabs/24 hrs orally PRN; 30 days ofloxacin 0.3% 10 drps otic (ears) BID 14 days prednisone 40 mg (2 x 20 mg) PO DAILY 5 days propranolol 15 mg (1.5 x 10 mg) PO BID 90 days riboflavin (vitamin B2) 400 mg PO DAILY 30 days sucralfate 1 g PO Q6H 14 days triamcinolone acetonide 2 sprays intranasal BEDTIME Tobacco use date assessed: 07/10/25 Dental Screening Dental Screen Date: 07/10/25 Did you have a dental visit in the last 12 months?: Yes Did you have a dental problem in the last 6 months where you did not have access to dental care?: No Was dental information given to patient?: Patient has dentist HPI vertigo/heart palpitation/graves disease HPI Details The patient is a 30-year-old female presenting for management of multiple medical issues. She reports feeling tired and has been experiencing poor sleep, with difficulty falling asleep and staying asleep. She feels sleepy during the day but not at night, and experiences tachycardia when she attempts to nap. A sleep apnea test was planned for this year but was postponed because she had COVID. For the past three days, her blood pressure has been elevated. She also notes weight gain, despite feeling that she eats very little. Her exercise is inconsistent, consisting mainly of staying active at home with chores and childcare. The patient has a history of irregular periods, a condition shared by her mother and sisters, which have become more severe with a heavier flow since her baby was born. She was diagnosed with anemia at the hospital and has been taking a liquid iron supplement and consuming red meat broth. She has an appointment with her contact agent in August to address the heavy bleeding. She reports intermittent swelling in her legs, associated with pain in the sole of her foot, which is relieved by putting her feet in cold water and wrapping them. The patient experienced one severe dizzy spell recently, which she attributes to stress over a mouse infestation at home. She also has a history of migraines, though they are less frequent than before. The patient is concerned about a recurrence of thyroid problems, reporting symptoms similar to past episodes, including feeling hot and cold, and experiencing a sore throat and hoarseness in the morning. She also reports difficulty swallowing solids and sometimes liquids, with a sensation of food getting stuck. She was previously hospitalized for this issue, and an endoscopy and colonoscopy were planned but canceled because she became with a high-risk . [facility] Medical History Flank pain Graves disease Graves' eye disease Pituitary microadenoma Psychogenic nonepileptic seizure Hyperthyroidism Essential hypertension Breast pain, left Overweight (BMI 25.0-29.9) Heavy menses Chronic constipation GERD without esophagitis Anemia HTN (hypertension) Anxiety Surgical History History of tubal ligation H/O tooth extraction (~12/10/22) H/O: Family History Paternal Aunt Breast cancer, Onset Age: 35 Maternal Aunt Breast cancer, Onset Age: 40 Other Diabetes High cholesterol Hypertension Social History Housing: House Alcohol intake: never Patient Tobacco Use Status: Never used Tobacco Tobacco use type: Cigarette e-Cigarette/Vaping Use: Never Used Second Hand Smoke Exposure: No service: No Current occupational status: unemployed Cognitive needs: No Hearing needs: No Vision needs: Yes (Glasses) Questionnaire Thrive Questionnaire Date Thrive assessed: 04/09/25 I am a: Patient What is your living situation today?: I have a steady place to live Within the past 12 months, did the food you bought not last and you didn't have the money to get more?: Never true Within the past 12 months, did you worry whether your food would run out before you got money to buy more?: Never true Do you have trouble paying for medicines?: No Do you have trouble getting transportation to medical appointments?: No Do you have trouble paying your heating and electricity bill?: No Do you have trouble taking care of your child, family member or friend?: No Do you have trouble with day-to-day activities such as bathing, preparing meals, shopping, managing finances, etc.?: No Are you currently unemployed and looking for a job?: Yes Are you interested in more education?: No Please select the resources that you would like help with: None Currently or been in a relationship where the following occur: No concerns reported THRIVE Score: 0 YULIYA-7 AMB Questionnaire YULIYA-7 Date YULIYA - 7 assessed: 04/09/25 Source: Developed by Drs. Fabio Johnson, Trinity Anand, Neymar Peterson and colleagues, with an educational sherley from [employer]. Review of Systems Const Reports headache(s) and Reports other (hair loss) Eyes Denies loss of vision ENT Reports dysphagia, Denies vertigo, Reports dizziness, Reports headache(s), Reports nasal congestion, Reports nasal discharge, Denies sore throat and Reports other (intermittent sore throat in the mornings) Card Denies chest pain, Reports leg edema (particular right leg/foot) and Denies lightheadedness Resp Denies cough, Denies hemoptysis and Denies wheezing GI Denies abdominal pain, Denies melena, Denies constipation, Reports dysphagia, Denies diarrhea and Denies vomiting Denies urinary frequency, Denies dysuria and Denies urinary urgency Musc Denies arthralgias, Denies joint swelling, Denies numbness, Denies tingling and Reports other (recurrent swelling in the legs) Neuro Denies Abnormal speech present, Denies behavioral changes, Denies vertigo, Reports dizziness, Reports headache(s), Denies loss of vision, Denies memory loss, Denies numbness and Denies tingling Psych Reports anxiety, Denies behavioral changes, Denies depression, Denies memory loss and Denies panic attacks Endo Reports other (hair loss) Vinayak/Lymph Denies easy bleeding and Denies easy bruising Aller/Immun Denies wheezing Physical exam (Primary Care) Vital Signs: Last Vital Signs Temp 97.1 F 07/10/25 15:28 Pulse 84 07/10/25 15:28 Resp 18 07/10/25 15:28 BP 134/82 07/10/25 16:20 Pulse Ox 99 07/10/25 15:28 Oxygen Delivery Method Room Air 07/10/25 15:28 BMI result Body Mass Index 36.2 Tobacco/Smoking Status: Tobacco use Status Tobacco use date assessed 07/10/25 07/10/25 15:32 Patient Tobacco Use Status Never used Tobacco 07/10/25 15:32 Tobacco use type Cigarette 07/10/25 15:32 e-Cigarette/Vaping Use Never Used 07/10/25 15:32 Thrive Assessment: Date of Thrive Assessment Date Thrive assessed 04/09/25 07/10/25 15:32 Currently or been in a relationship where the following occur: No concerns reported Const General: healthy appearing, no acute distress, alert and awake Nutritional Appearance: well nourished Orientation/consciousness: oriented to person, oriented to place and oriented to time [facility] Head: No scalp lesion, No scalp tenderness and Yes other (no obvious hair loss) Ears: Abnormal EAC present erythema on the left, edema on the left and EAC tenderness on the left General nose exam: Abnormal mucous membranes and turbinates present boggy bilateral and erythematous bilateral and Nasal discharge present purulent on the right Eyes Conjunctivae: conjunctivae normal Sclerae: sclerae normal Pupils: Equal, round and reactive pupils present Neck Neck: Yes no lymphadenopathy and Yes no JVD Thyroid: Thyroid normal Carotids: no bruits Resp Effort & Inspection: normal respiratory effort and not tachypneic Auscultation: no crackles, no rales, no rhonchi and no wheezes Cardio Rate: regular rate Rhythm: regular rhythm Heart sounds: no murmurs and normal S1 and S2 GI Palpation (GI): Soft to palpation, nontender, no hepatomegaly and no splenomegaly Auscultation: normal bowel sounds Skin General skin exam: no rashes or lesions noted and dry skin Neuro General: oriented to person, oriented to place and oriented to time Cranial nerves: Yes Equal, round and reactive pupils present Speech: No Abnormal speech present Gait exam (Neuro): Normal gait present Motor exam (neuro): no tremor noted Extrem Right upper extremity: full ROM Left upper extremity: full ROM Right lower extremity: full ROM, lower leg Details: non-pitting edema Details: 1+ and foot Details: edema Location: of the dorsal foot; no edema Left lower extremity: full ROM; no edema Psych Mental Status: mental status grossly normal Speech and movement: Normal speech and movement present Affect: normal affect Attitude: cooperative Thought process: Normal thought process present Results Reviewed Results Reviewed: Laboratory Tests 04/22/25 05/01/25 05/19/25 Unknown 10:04 14:34 Sodium 140 Potassium 3.7 Chloride 105 Carbon Dioxide 26 Anion Gap 13 BUN 10 Creatinine 0.65 Estimated GFR > 60 Random Glucose 93 Fasting Glucose 101 H Calcium 9.2 Magnesium 2.2 Total Bilirubin 0.2 AST 23 ALT 20 Alkaline Phosphatase 94 Total Protein 8.1 H Triglycerides 316 H Cholesterol 208 H LDL Cholesterol, Calc 110 H HDL Cholesterol 35 L 25-OH Vitamin D Total 26.3 L Urine Color Yellow Urine Appearance Clear Urine pH 6.0 Ur Specific [place] 1.015 Urine Protein Negative Urine Glucose (UA) Negative Urine Ketones Negative Urine Blood Negative Urine Nitrite Negative Ur Leukocyte Esterase Large (3+) H Urine RBC 0-2 Urine WBC 21-50 H Ur Squamous Epith Cells 3-5 Urine Bacteria None Seen Hyaline Casts 0-2 Coding Level of Care Code Est Pt Level 4 (70386) Diagnoses Primary hypertension I10 Hypertension type: unspecified Anxiety F41.9 Psychogenic nonepileptic seizure F44.5 Panic attacks F41.0 Hyperthyroidism E05.90 Overweight (BMI 25.0-29.9) E66.3 Benign paroxysmal vertigo, unspecified laterality H81.10 Laterality: unspecified laterality Nasal congestion R09.81 Vision impairment H54.7 Heartburn R12 Anemia, unspecified type D64.9 Anemia type: unspecified type Migraine with aura and without status migrainosus, not intractable G43.109 Intractability: not intractable Status migrainosus presence: without status migrainosus Apneic spell R06.81 Snoring R06.83 Sleep difficulties G47.9 Swelling of right foot M79.89 Oropharyngeal dysphagia R13.12 Dysphagia type: oropharyngeal phase Time Spent (min) 39 Assessment & Plan Assessment & Plan (1) HTN (hypertension): Code(s): I10 - Essential (primary) hypertension Category: Medical Qualifiers: Hypertension type: unspecified Qualified Code(s): I10 - Essential (primary) hypertension Plan: Blood pressure was 134/82 mmHg in office. The patient reports a recent switch to a low-sodium seasoning has helped reduce leg swelling. Continue current medication and lifestyle modifications. (2) Anxiety: Code(s): F41.9 - Anxiety disorder, unspecified Category: Medical Plan: Encouraged CBT Continue propranolol 15 mg b.i.d. Follow up with Psychiatry as scheduled (3) 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 - Conversion disorder with seizures or convulsions Category: Medical Plan: Patient denies any recent episodes of seizure-like activity Follow up with Neurology as scheduled (4) Panic attacks: Code(s): F41.0 - Panic disorder [episodic paroxysmal anxiety] Category: Medical Plan: Patient denies any recent panic attacks Continue propranolol 15 mg b.i.d. Follow up with Psychiatry as scheduled (5) Hyperthyroidism: Code(s): E05.90 - Thyrotoxicosis, unspecified without thyrotoxic crisis or storm Category: Medical Plan: No recent thyroid function tests. Urged the patient to get these labs done to re-evaluate her her thyroid function. (6) Overweight (BMI 25.0-29.9): Code(s): E66.3 - Overweight Category: Medical Plan: Encouraged to exercise for at least 30 minutes a day/5 days a week Healthy eating discussed. Encouraged to eat fruits/vegetables, protein-fish/baked chicken, and to avoid salty/fried foods, sweets, caffeine and carbohydrates. Encouraged to increase water intake 6-8 glasses a day (7) Benign paroxysmal vertigo, unspecified ear: Code(s): H81.10 - Benign paroxysmal vertigo, unspecified ear Category: Medical Qualifiers: Laterality: unspecified laterality Qualified Code(s): H81.10 - Benign paroxysmal vertigo, unspecified ear Plan: Patient reports that this has been on and off. Excessive cerumen noted in ear canals especially left ear. The patient was again advised to use Debrox ear drops and to schedule an ear cleaning with office. (8) Nasal congestion: Code(s): R09.81 - Nasal congestion Category: Medical Plan: The patient's morning sore throat and hoarseness are attributed to post-nasal drip from allergies. It was recommended she take an uenu-cwc-feytcqx allergy medication, such as Claritin, to help manage these symptoms. 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 Exposure keratoconjunctivitis OU was suspected to be causing her irritation. The patient was recommended to increase her artificial tears to 4 times daily in both eyes and starting a topical steroid 4 times a day x2 weeks. Follow up with Ophthalmology as scheduled (10) Heartburn: Code(s): R12 - Heartburn Category: Medical Plan: Do not eat meals or drink carbonated beverages within 3 hr of bedtime Decrease the amount of fried, fatty, and spicy foods to decrease gastric acid production Raise the head of the bed using 4 to 6-inch blocks, especially if nocturnal symptoms are present Lose weight if indicated; avoid tight-fitting clothing, especially around the waist Avoid foods that relax the Lower esophageal sphincter (chocolate, peppermint, high-fat foods etc.,) Continue sucralfate 1 g q.6h (11) Anemia: Code(s): D64.9 - Anemia, unspecified Category: Medical Qualifiers: Anemia type: unspecified type Qualified Code(s): D64.9 - Anemia, unspecified Plan: The patient is anemic due to heavy, irregular periods. She will continue taking her liquid iron supplement, and a refill will be sent to her pharmacy. She has a follow-up appointment scheduled with her contact agent in August to manage the menorrhagia. (12) Migraine with aura: Code(s): G43.109 - Migraine with aura, not intractable, without status migrainosus Category: Medical Qualifiers: Intractability: not intractable Status migrainosus presence: without status migrainosus Qualified Code(s): G43.109 - Migraine with aura, not intractable, without status migrainosus Plan: Patient reports that this has been controlled and only has been having few headaches per month. Continue riboflavin 400 mg daily, naratriptan as ordered. Follow up with Neurology as scheduled (13) Apneic spell: Code(s): R06.81 - Apnea, not elsewhere classified Category: Medical Plan: The patient's complaints of fatigue and poor sleep were addressed with counseling on sleep hygiene, including avoiding daytime naps to improve nighttime sleep. A previously planned sleep apnea study, which was postponed, is still a consideration given her symptoms. We will refer the patient back to sleep Medicine for to complete her sleep study. (14) Snoring: Code(s): R06.83 - Snoring Category: Medical Plan: Same as above (15) Sleep difficulties: Code(s): G47.9 - Sleep disorder, unspecified Category: Medical Plan: Reinforced sleep hygiene (16) Swelling of right foot: Code(s): M79.89 - Other specified soft tissue disorders Category: Medical Plan: The patient's foot pain is attributed to plantar fasciitis due to prolonged standing. Recommendations include wearing comfortable shoes, calf massage, using warm compresses on the calf, and applying Biofreeze. Dietary salt reduction was also encouraged to manage swelling. (17) Dysphagia: Code(s): R13.10 - Dysphagia, unspecified Category: Medical Qualifiers: Dysphagia type: oropharyngeal phase Qualified Code(s): R13.12 - Dysphagia, oropharyngeal phase Plan: To evaluate the patient's complaint of food getting stuck, a swallow study will be ordered. This is the initial diagnostic step, with further evaluation to be determined based on the results. Orders: Orders Complete Blood Count Auto Diff 3 Months D35.2 - Benign neoplasm of pituitary gland, E05.00 - Thyrotoxicosis with diffuse goiter without thyrotoxic crisis or storm, E05.90 - Thyrotoxicosis, unspecified without thyrotoxic crisis or storm, E16.2 - Hypoglycemia, unspecified, E66.3 - Overweight, F44.5 - Conversion disorder with seizures or convulsions, H81.10 - Benign paroxysmal vertigo, unspecified ear, I10 - Essential (primary) hypertension, R00.2 - Palpitations, R42 - Dizziness and giddiness, R73.9 - Hyperglycemia, unspecified TSH reflex Free T4 3 Months D35.2 - Benign neoplasm of pituitary gland, E05.00 - Thyrotoxicosis with diffuse goiter without thyrotoxic crisis or storm, E05.90 - Thyrotoxicosis, unspecified without thyrotoxic crisis or storm, E16.2 - Hypoglycemia, unspecified, E66.3 - Overweight, F44.5 - Conversion disorder with seizures or convulsions, H81.10 - Benign paroxysmal vertigo, unspecified ear, I10 - Essential (primary) hypertension, R00.2 - Palpitations, R42 - Dizziness and giddiness, R73.9 - Hyperglycemia, unspecified IRON PROFILE 3 Months D35.2 - Benign neoplasm of pituitary gland, E05.00 - Thyrotoxicosis with diffuse goiter without thyrotoxic crisis or storm, E05.90 - Thyrotoxicosis, unspecified without thyrotoxic crisis or storm, E16.2 - Hypoglycemia, unspecified, E66.3 - Overweight, F44.5 - Conversion disorder with seizures or convulsions, H81.10 - Benign paroxysmal vertigo, unspecified ear, I10 - Essential (primary) hypertension, R00.2 - Palpitations, R42 - Dizziness and giddiness, R73.9 - Hyperglycemia, unspecified FL barium swallow Today R13.12 - Dysphagia, oropharyngeal phase RT home sleep study Today G47.19 - Other hypersomnia, G47.9 - Sleep disorder, unspecified, R06.81 - Apnea, not elsewhere classified, R06.83 - Snoring Free T4 (Free Thyroxine) 6 Weeks E03.9 - Hypothyroidism, unspecified TSH reflex Free T4 07/11/25 E05.00 - Thyrotoxicosis with diffuse goiter without thyrotoxic crisis or storm, E05.90 - Thyrotoxicosis, unspecified without thyrotoxic crisis or storm Free T4 (Free Thyroxine) 07/11/25 E05.00 - Thyrotoxicosis with diffuse goiter without thyrotoxic crisis or storm, E05.90 - Thyrotoxicosis, unspecified without thyrotoxic crisis or storm Comprehensive Freedom. Panel Fast 3 Months D35.2 - Benign neoplasm of pituitary gland, E05.00 - Thyrotoxicosis with diffuse goiter without thyrotoxic crisis or storm, E05.90 - Thyrotoxicosis, unspecified without thyrotoxic crisis or storm, E16.2 - Hypoglycemia, unspecified, E66.3 - Overweight, F44.5 - Conversion disorder with seizures or convulsions, H81.10 - Benign paroxysmal vertigo, unspecified ear, I10 - Essential (primary) hypertension, R00.2 - Palpitations, R42 - Dizziness and giddiness, R73.9 - Hyperglycemia, unspecified Lipid Panel 3 Months D35.2 - Benign neoplasm of pituitary gland, E05.00 - Thyrotoxicosis with diffuse goiter without thyrotoxic crisis or storm, E05.90 - Thyrotoxicosis, unspecified without thyrotoxic crisis or storm, E16.2 - Hypoglycemia, unspecified, E66.3 - Overweight, F44.5 - Conversion disorder with seizures or convulsions, H81.10 - Benign paroxysmal vertigo, unspecified ear, I10 - Essential (primary) hypertension, R00.2 - Palpitations, R42 - Dizziness and giddiness, R73.9 - Hyperglycemia, unspecified UA CC w/rflx Micro + Cult 3 Months D35.2 - Benign neoplasm of pituitary gland, E05.00 - Thyrotoxicosis with diffuse goiter without thyrotoxic crisis or storm, E05.90 - Thyrotoxicosis, unspecified without thyrotoxic crisis or storm, E16.2 - Hypoglycemia, unspecified, E66.3 - Overweight, F44.5 - Conversion disorder with seizures or convulsions, H81.10 - Benign paroxysmal vertigo, unspecified ear, I10 - Essential (primary) hypertension, R00.2 - Palpitations, R42 - Dizziness and giddiness, R73.9 - Hyperglycemia, unspecified Free T4 (Free Thyroxine) 3 Months D35.2 - Benign neoplasm of pituitary gland, E05.00 - Thyrotoxicosis with diffuse goiter without thyrotoxic crisis or storm, E05.90 - Thyrotoxicosis, unspecified without thyrotoxic crisis or storm, E16.2 - Hypoglycemia, unspecified, E66.3 - Overweight, F44.5 - Conversion disorder with seizures or convulsions, H81.10 - Benign paroxysmal vertigo, unspecified ear, I10 - Essential (primary) hypertension, R00.2 - Palpitations, R42 - Dizziness and giddiness, R73.9 - Hyperglycemia, unspecified Vitamin D 25-OH Total 3 Months D35.2 - Benign neoplasm of pituitary gland, E05.00 - Thyrotoxicosis with diffuse goiter without thyrotoxic crisis or storm, E05.90 - Thyrotoxicosis, unspecified without thyrotoxic crisis or storm, E16.2 - Hypoglycemia, unspecified, E66.3 - Overweight, F44.5 - Conversion disorder with seizures or convulsions, H81.10 - Benign paroxysmal vertigo, unspecified ear, I10 - Essential (primary) hypertension, R00.2 - Palpitations, R42 - Dizziness and giddiness, R73.9 - Hyperglycemia, unspecified Hemoglobin A1c 3 Months D35.2 - Benign neoplasm of pituitary gland, E05.00 - Thyrotoxicosis with diffuse goiter without thyrotoxic crisis or storm, E05.90 - Thyrotoxicosis, unspecified without thyrotoxic crisis or storm, E16.2 - Hypoglycemia, unspecified, E66.3 - Overweight, F44.5 - Conversion disorder with seizures or convulsions, H81.10 - Benign paroxysmal vertigo, unspecified ear, I10 - Essential (primary) hypertension, R00.2 - Palpitations, R42 - Dizziness and giddiness, R73.9 - Hyperglycemia, unspecified PTH Intact Intraoperative 3 Months D35.2 - Benign neoplasm of pituitary gland TSH reflex Free T4 6 Weeks E03.9 - Hypothyroidism, unspecified Medications: New levothyroxine (Levoxyl) 25 mcg PO DAILY 30 tabs 3RF Refilled ferrous sulfate 300 mg (5 mL) PO DAILY 500 mL 3RF
[2025-07-10 16:20] VITALS: BP 134/82
--- OUTSIDE RECORDS SUMMARY | 2025-07-10 17:59 | XMS_ITS | Clinical Summary ---
Author Organization [facility] Address [address] [address] Phone Care Team Providers Care Embedded Systems Developer Name Role Phone Pcp, Unknown Primary Care [...] Medical Devices Not on file Insurance [facility] [employer] [facility] [employer] Care Teams Embedded Systems Developer Relationship Specialty Start Date End Date Pcp, Unknown PCP - General 11/15/22 Additional Source Comments The information contained in this document represents components of the legal health record. It is not the complete legal health record.[facility]
--- OUTSIDE RECORDS SUMMARY | 2025-07-10 17:59 | XMS_ITS | Clinical Summary ---
Author Organization [employer] [facility] ity Address [address] [place] [address] Care Team Providers Care Directory Carrier Name Role Phone Jeffy Gutierrez MD Primary Care Provider [phone] Surgical History Surgery Date Site/Laterality Comments SECTION [...] Cervical Cancer Screening: P ap Smear 2015 HPV Vaccines (1 - 3-dose SCD M series) 2021 Cholesterol Screening (Lipid Panel) 08/14/2022 HIV Screening 08/14/2022 Hepatitis C Screening 08/14/2022 Social Influencers of Health Screening 08/14/2022 Hypertension/CHF/CAD Annual BMP Blood Test 04/05/2024 Depression Screening 09/11/2024 COVID-19 Vaccine (1 - 2023-2 5 season) 2025 Influenza Vaccine (#1) 2025 RSV Immunization Adult Patie nts (1 - 1-dose 75+ series) 2069 HIB Vaccines Aged Out No longer eligi [...] Documents on File Type Date Recorded Patient Machine Tack Puller Expl anation Health Care Decision (hx) 08/30/2023 HE ALTH CARE PROXY Health Care Decision (hx) 08/30/2023 HE ALTH CARE PROXY Health Care Decision (hx) 08/30/2023 HE ALTH CARE PROXY Care Teams Directory Carrier Relationship Specialty Start Date End Date Jeffy Gutierrez MD [address] [place] [address] Dr [address] [place], [place] PCP - General 10/25/23
--- OUTSIDE RECORDS SUMMARY | 2025-07-10 17:59 | XMS_ITS | Data Portability ---
[facility] Organization [facility] [place] [address] Care Team Providers Care High School Social Studies Tutor Name Role Phone [facility] Primary Care Provider Assessment Encounter Date Assessment Date Assessment LastModified by Organization Details LastModified Time 09/17/2022 09/17/2022 Overview/History : 27 YO F new to DH and new to provider She is being seen today at home Has PMH of depression, HTN, anxiety, anemia, gestational diabetes She is primarily turks and caicos islander speaking and she elects to use her friend via telephone to help translate instead of formal medical [place] islander translation w/ our service. Of note she [...] days ago but then after I call [facility] to review records w/ her permission her [...] present, apparently new, discussed w/ member of [facility] who reports this is new [...] visit -She reports she was seen in [facility] [place] in Jul for this issue -She gives me permission to call [facility] to review records, I speak with staff Pharmacist Yadira Grace who reports that she has been seen numerous times between Jul, Aug and even yesterday. She has never been seen for a dental issue or facial swelling however. No mention of facial swelling in her chart from yesterday. She was educated at that time to f/u [facility] PCP for URI sxs. -Today [...] Pt thanks us for our visit today. [email or web address] Not available 09/17/2022 14:17:49 Plan of Treatment [...] and Address Organization Details Recorded Time 09/17/19 Medication Review completed REVA Tomas [address], [place], [address], [place] [facility] 09/17/2022 14:01:37 section completed REVA Tomas [address], [place], [address], [place] [facility] 09/17/2022 12:55:35 Imaging Results None recorded. Procedure Notes None recorded. Medical Equipment None Reported. Allergies Allergen ID Allergen Name Allergen Category Reaction Reaction Severity Criticality Documentation Date Start Date Code Code System Note Provider Name and Address Organization Details Recorded Time 114565 Augmentin medicatio n Not available Not available Not available 09/17/2022 72962 2 RxNorm REVA Michelle [address], [facility] [place], [address], [place] [facility] 3 12:48:53 [id number] nifedipin e medicatio n Not available Not available Not available 09/17/2022 7417 RxNorm REVA Michelle [address], [facility] [place], [address], [place] [facility] 3 12:48:58 [id number] Mucinex medicatio n Not available Not available Not available 09/17/2022 40915 7 RxNorm REVA Michelle [address], [facility] [place], [address], [place] [facility] 3 13:06:54 [id number] cyclobenz aprine medicatio n Not available Not available Not available 09/17/2022 62967 RxNorm REVA Michelle [address], [facility] [place], [address], [place] [facility] 3 13:07:10 Medications Name Sig Start Date Stop [...] Not Available Not Available Not Available FreeStyle [place] Lite kit PLEASE CHECK GLUCOSE LEVEL FOR HYPOGLYCE BEN 09/17 completed Not Available Not Available Not Available Vitals Date Recorded Heart rate Oxygen saturation Oxygen saturation in Arterial blood by Pulse oximetry Body temperature Respiratory rate Systolic And Diastolic Provider Name and Address Organization Details Last Updated DateTime 3 62 /min 100 % 100 % 98.1 [degF] 16 /min 116/68 mm[Hg] Not Available [facility] 3 13:10:43 Social History Question Answer Notes LastModified by Trist Details LastModified Time Tobacco Smoking Status Never Smoker REVA Tomas [address] [place] [address], [address], [place] [facility] 09/17/2022 12:55:47 Does This Patient Have A PCP? Yes [email or web address] Information not available 09/17/2022 Has The Patient Seen Their PCP In The Past 6 Months? Yes [email or web address] Information not available 09/17/2022 Sex: Unknown Functional Status Question Answer Note LastModified by Trist Details LastModified Time Do you use any [...] Diagnosis SNOMED-CT Code Diagnosis ICD10 Code Diagnosis IMO Codes Diagnosis Note [id number] REVA Coy [facility] [address] [place] [address] 09/17/2022 12:41:07 09/17/2022 14:58:27 Left parotid gland swelling [id number] K11.9 Health Concerns Section Related Observation LastModified by Organization Detai ls LastModified Time None Recorded Concern Status LastModified by Organization Details LastModified Time None Recorded Advance Directives Directive None Recorded Payers Insurance Date Sequence Insurance Name Policy Number Policy Gaona Covered Member ID Gaona Member ID Guarantor Name 09/17/2022 1 [facility] (MEDICAID [facility] [id number] Linoshka Omar [id number] Linoshka Omar 09/17/2022 1 *SELF PAY* Linoshka Omar [id number] Linoshka Omar 09/17/2022 1 [facility] (MEDICAID HMO) [id number] Linoshka Omar [id number] Linoshka Omar 09/17/2022 1 [facility] (MEDICAID HMO) [id number] Linoshka Omar [id number] Linoshka Omar 09/17/2022 1 [facility] (MEDICAID HMO) [id number] Linoshka Omar [id number] Linoshka Omar Notes Date Note Type Note Provider Name and Address Organization Details Recorded Time 09/17/2022 text/html 27 YO F new to DH and new to providerShe is being seen today at [facility] of depression, HTN, anxiety, anemia, gestational diabetesIlda is primarily turks and caicos islander speaking and she elects to use her friend via telephone to help translate instead of formal medical [place] islander translation w/ our service.Of note she and [...] days ago but then after I call [facility] to review records w/ her permission her [...] other reported sxs or concerns today. RE[facility] Tomas, [place], [address], [place] [facility] 09/17/2022 14:18:02 OBGyn Episode No OBEpisode recorded.
--- OUTSIDE RECORDS SUMMARY | 2025-07-10 17:59 | XMS_ITS | Clinical Summary ---
Author Organization [facility] Address [address] [place] [address] Care Team Providers Care School Program Director Name Role Phone Ref, Has No Pcp [...] to [place] [address] [employer] Care Teams School Program Director Relationship Specialty Start Date End Date Ref, Has No Pcp Or DO NOT EDIT THIS RECORD VIA PROVIDER ON THE FLY PCP - General Dope And Fabric Worker 11/17/24
== END 2025-07-10 17:08 | disposition home or self-care (01) ==
LOC: HO.HMCH 15:24
PROVIDERS: PCP Internal Medicine
DX: I10 Essential (primary) hypertension (principal); F41.9 Anxiety disorder, unspecified; F44.5 Conversion disorder with seizures or convulsions; F41.0 Panic disorder [episodic paroxysmal anxiety]; E05.90 Thyrotoxicosis, unspecified without thyrotoxic crisis or storm; E66.3 Overweight; H81.10 Benign paroxysmal vertigo, unspecified ear; R09.81 Nasal congestion; H54.7 Unspecified visual loss; R12 Heartburn; D64.9 Anemia, unspecified; G43.109 Migraine with aura, not intractable, without status migrainosus; R06.81 Apnea, not elsewhere classified; R06.83 Snoring; G47.9 Sleep disorder, unspecified; M79.89 Other specified soft tissue disorders; R13.12 Dysphagia, oropharyngeal phase

== ENCOUNTER → 2025-07-10 15:23 | Outpatient (BNVA) | payer OTHER, SELFPAY | PROVIDERS: PCP Internal Medicine | DX: I10 Essential (primary) hypertension (principal); E66.3 Overweight; N92.6 Irregular menstruation, unspecified; F41.9 Anxiety disorder, unspecified; F44.5 Conversion disorder with seizures or convulsions; F41.0 Panic disorder [episodic paroxysmal anxiety]; E05.90 Thyrotoxicosis, unspecified without thyrotoxic crisis or storm; H81.10 Benign paroxysmal vertigo, unspecified ear; R09.81 Nasal congestion; H54.7 Unspecified visual loss; R12 Heartburn; D64.9 Anemia, unspecified; G43.109 Migraine with aura, not intractable, without status migrainosus; R06.81 Apnea, not elsewhere classified; R06.83 Snoring; G47.9 Sleep disorder, unspecified; M79.89 Other specified soft tissue disorders; R13.12 Dysphagia, oropharyngeal phase; Z68.36 Body mass index [BMI] 36.0-36.9, adult | CPT/HCPCS: 99212 ==

== ENCOUNTER 2025-07-11 09:01 | Outpatient (REF) | payer OTHER, SELFPAY ==
--- OUTSIDE RECORDS SUMMARY | 2025-07-11 09:41 | XMS_ITS | Clinical Summary ---
Author Organization [employer] [facility] ity Address [address] [place] [address] Care Team Providers Care Motel Manager Name Role Phone Jeffy Gutierrez MD Primary Care Provider [phone] Surgical History Surgery Date Site/Laterality Comments SECTION [...] Documents on File Type Date Recorded Patient Tank Hoop Bender Expl anation Health Care Decision (hx) 08/30/2023 HE ALTH CARE PROXY Health Care Decision (hx) 08/30/2023 HE ALTH CARE PROXY Health Care Decision (hx) 08/30/2023 HE ALTH CARE PROXY Care Teams Motel Manager Relationship Specialty Start Date End Date Jeffy Gutierrez MD [address] [place] [address] Dr [address] [place], [place] PCP - General 10/25/23
--- OUTSIDE RECORDS SUMMARY | 2025-07-11 09:41 | XMS_ITS | Clinical Summary ---
Author Organization [facility] Address [address] [address] Phone Care Team Providers Care Chemical Cell Changer Name Role Phone Pcp, Unknown Primary Care [...] file Medical Devices Not on file Insurance [facility] [employer] [facility] Care Teams Chemical Cell Changer Relationship Specialty Start Date End Date Pcp, Unknown PCP - General 11/15/22 Additional Source Comments The information contained in this document represents components of the legal health record. It is not the complete legal health record.[facility]
--- OUTSIDE RECORDS SUMMARY | 2025-07-11 09:41 | XMS_ITS | Clinical Summary ---
Author Organization [facility] Address [address] [place] [address] Care Team Providers Care Ebd Teacher Name Role Phone Ref, Has No Pcp [...] to complete [place] [address] [place] [address] Care Teams Ebd Teacher Relationship Specialty Start Date End Date Ref, Has No Pcp Or DO NOT EDIT THIS RECORD VIA PROVIDER ON THE FLY PCP - General Practice Coordinator 11/17/24
[2025-07-11 10:28] LABS: Free T4 (Free Thyroxine) 0.68 ng/dL (0.71-1.85)
== END 2025-07-11 09:02 | disposition home or self-care (01) ==
LOC: HO.LAB 09:01
DX: E05.00 Thyrotoxicosis with diffuse goiter without thyrotoxic crisis or storm (principal); E05.90 Thyrotoxicosis, unspecified without thyrotoxic crisis or storm
CPT/HCPCS: 36415; 84439; 84443

== ENCOUNTER 2025-07-19 13:34 | Outpatient (REF) | payer OTHER, SELFPAY ==
--- OUTSIDE RECORDS SUMMARY | 2025-07-19 13:38 | XMS_ITS | Data Portability ---
Author Organization [facility] [place] [address] Care Team Providers Care Senior Human Resources Representative Name Role Phone [facility] Primary Care Provider Assessment Encounter Date Assessment Date Assessment LastModified by Organization Details LastModified Time 09/17/2022 09/17/2022 Overview/History : 27 YO F new to DH and new to provider She is being seen today at home Has PMH of depression, HTN, anxiety, anemia, gestational diabetes She is primarily algerian speaking and she elects to use her friend via telephone to help translate instead of formal medical algerian translation w/ our service. Of note she [...] days ago but then after I call [facility] to review records w/ her permission her [...] present, apparently new, discussed w/ member of [place] [facility] who reports this is new [...] was educated at that time to f/u [facility] PCP for URI sxs. -Today now [...] Review completed RE[facility] Tomas [address], [place], [address], [place] [facility] 09/17/2022 14:01:37 section completed REVA Tomas [address], [place], [address], [place] [facility] 09/17/2022 12:55:35 Imaging Results None recorded. Procedure Notes None recorded. Medical Equipment None Reported. Allergies Allergen ID Allergen Name Allergen Category Reaction Reaction Severity Criticality Documentation Date Start Date Code Code System Note Provider Name and Address Organization Details Recorded Time 872223 Augmentin medicatio n Not available Not available Not available 09/17/2022 05007 2 RxNorm REVA Michelle [address], [place], [address], [place] [facility] 3 12:48:53 283271 nifedipin e medicatio n Not available Not available Not available 09/17/2022 7417 RxNorm REVA Michelle [address], [place], [address], [place] [facility] 3 12:48:58 571578 Mucinex medicatio n Not available Not available Not available 09/17/2022 37075 7 RxNorm REVA Michelle [address], [place], [address], [place] [facility] 3 13:06:54 491546 cyclobenz aprine medicatio n Not available Not available Not available 09/17/2022 85041 RxNorm REVA Michelle [address], [place], [address], [place] [facility] [...] Not Available Not Available Not Available FreeStyle [place] Lite kit PLEASE CHECK GLUCOSE LEVEL FOR [...] Social History Question Answer Notes LastModified by Venga Details LastModified Time Tobacco Smoking Status Never Smoker RE[facility] Tomas [address] [place] [address], [address], [place] [facility] 09/17/2022 12:55:47 Does This Patient Have A PCP? Yes [email or web address] Information not available 09/17/2022 Has The Patient Seen Their PCP In The Past 6 Months? Yes [email or web address] Information not available 09/17/2022 Sex: Unknown Functional Status Question Answer Note LastModified by Venga Details LastModified Time Do you use any [...] History Condition Response Coronary Artery Disease N COPD N Depression Y Hypothyroidism N A-fib N Cancer N Stroke [...] ICD10 Code Diagnosis IMO Codes Diagnosis Note [id number] REVA Coy [facility] [address] [place] [address] 09/17/2022 12:41:07 09/17/2022 14:58:27 Left parotid gland swelling [id number] 8064149 K11.9 Health Concerns Section Related Observation LastModified by Organization Detai ls LastModified Time None Recorded Concern Status LastModified by Organization Details LastModified Time None Recorded Advance Directives Directive None Recorded Payers Insurance Date Sequence Insurance Name Policy Number Policy Gaona Covered Member ID Gaona Member ID Guarantor Name 09/17/2022 1 [facility] (MEDICAID [facility] [id number] Linoshka Omar [id number] Linoshka Omar 09/17/2022 1 *SELF PAY* Linoshka Omar [id number] Linoshka Omar 09/17/2022 1 [facility] (MEDICAID HMO) [id number] Linoshka Omar [id number] Linoshka Omar 09/17/2022 1 [facility] (MEDICAID HMO) [id number] Linoshka Omar [id number] Linoshka Omar 09/17/2022 1 [facility] (MEDICAID HMO) [id number] Linoshka Omar [id number] Linoshka Omar Notes Date Note Type Note Provider Name and Address Organization Details Recorded Time 09/17/2022 text/html 27 YO F new to DH and new to providerShe is being seen today at [facility] of depression, HTN, anxiety, anemia, gestational diabetesIlda is primarily algerian speaking and she elects to use her friend via telephone to help translate instead of formal medical algerian translation w/ our service.Of note she and [...] days ago but then after I call [facility] to review records w/ her permission her [...] reported sxs or concerns today. REVA Tomas, [place], [address], [place] [facility] 09/17/2022 14:18:02 OBGyn Episode No OBEpisode recorded.
--- OUTSIDE RECORDS SUMMARY | 2025-07-19 13:38 | XMS_ITS | Clinical Summary ---
Author Organization [facility] Address [address] [address] Phone Care Team Providers Care Cross Cut Sawyer Name Role Phone Pcp, Unknown Primary Care [...] file Medical Devices Not on file Insurance [facility] [employer] [facility] [place] [address] Care Teams Cross Cut Sawyer Relationship Specialty Start Date End Date Pcp, Unknown PCP - General 11/15/22 Additional Source Comments The information contained in this document represents components of the legal health record. It is not the complete legal health record.[facility]
--- OUTSIDE RECORDS SUMMARY | 2025-07-19 13:38 | XMS_ITS | Clinical Summary ---
Author Organization [facility] Address [address] [place] [address] Care Team Providers Care Surgical Training Specialist Name Role Phone Ref, Has No Pcp [...] - Td or Tdap) 06/25/2034 06/25/2024, 05/21/2019 Pneumococcal Vaccine: Pediatric (0-5 Years) and At-Risk Patients (6-50 Years) Aged Out 07/09/2019 No longer eligible based on patient's age to complete this topic Insurance [employer] Care Teams Surgical Training Specialist Relationship Specialty Start Date End Date Ref, Has No Pcp Or DO NOT EDIT THIS RECORD VIA PROVIDER ON THE FLY PCP - General Track Man 11/17/24
--- OUTSIDE RECORDS SUMMARY | 2025-07-19 13:38 | XMS_ITS | Clinical Summary ---
Author Organization [facility] ity Address [address] [place] [address] Care Team Providers Care Probation Manager Name Role Phone Jeffy Gutierrez MD Primary Care Provider [phone] Surgical History Surgery Date Site/Laterality Comments SECTION [...] Documents on File Type Date Recorded Patient Data Operations Leader Expl anation Health Care Decision (hx) 08/30/2023 HE ALTH CARE PROXY Health Care Decision (hx) 08/30/2023 HE ALTH CARE PROXY Health Care Decision (hx) 08/30/2023 HE ALTH CARE PROXY Care Teams Probation Manager Relationship Specialty Start Date End Date Jeffy Gutierrez MD [address] [place] [address] Dr [address] [place], [place] PCP - General 10/25/23
== END 2025-07-19 13:35 | disposition home or self-care (01) ==
LOC: HO.HMGCLDS 13:34
DX: N91.2 Amenorrhea, unspecified (principal)
CPT/HCPCS: 36415; 84702

== ENCOUNTER 2025-08-04 08:45 | Outpatient (AMB) | payer OTHER, SELFPAY ==
[2025-08-04 08:48] VITALS: BP 115/73; PULSE 66; RESP 14; TEMP 36.8; O2SAT 98; BMI 35.5
--- NOTE | 2025-08-04 08:48 | AM.OFFWIN_ITS ---
Intake Vital Signs 08/04/25 08:48 Height 5 ft Weight 182 lb BMI 35.5 BP 115/73 Blood Pressure Location Lt brachial Position Sitting Respiration 14 Pulse 66 Pulse Source Pulse Oximeter Temp 98.2 F Temp Source Oral Pulse Oximetry (%) 98 Oxygen Delivery Method Room Air Intake Visit Reasons: EP-dizziness, eyes pain, chest pressure, insomnia Intake Note: pt presents with dizziness, hand numbness, body chills/hot flashes chest pressure, pain on eyes and neck and throat for several days Patient Tobacco Use Status: Never used Tobacco Verification Manager Required: Yes Allergies morphine Allergy (Severe, Verified 08/04/25 08:56) Vomiting chlorthalidone Allergy (Intermediate, Verified 08/04/25 08:56) Chest Pain glucagon Allergy (Intermediate, Verified 08/04/25 08:56) Unknown guaifenesin (From Mucinex) Allergy (Intermediate, Verified 08/04/25 08:56) Unknown latex Allergy (Intermediate, Verified 08/04/25 08:56) Rash amoxicillin Allergy (Mild, Verified 08/04/25 08:56) Rash clavulanic acid (From Augmentin) Allergy (Unknown, Verified 08/04/25 08:56) Unknown cyclobenzaprine (From Flexeril) Allergy (Verified 08/04/25 08:56) Palpitations escitalopram Allergy (Verified 08/04/25 08:56) Palpitations hydralazine Allergy (Verified 08/04/25 08:56) Nausea and Vomiting lorazepam (From Ativan) Allergy (Verified 08/04/25 08:56) Palpitations nifedipine Allergy (Intermediate, Uncoded 08/04/25 08:56) Unknown Medication List - Last Reconciled 08/04/25 by Mariely Bah NP acetaminophen 1,000 mg (2 x 500 mg) PO Q6H PRN amlodipine 10 mg PO DAILY 90 days ferrous sulfate 300 mg (5 mL) PO DAILY levothyroxine (Levoxyl) 25 mcg PO DAILY miscellaneous medical supply (Blood Pressure Cuff) As directed propranolol 15 mg (1.5 x 10 mg) PO BID 90 days Do you need a note to return to daycare/school/sports/work: No PFSH Medical History (Updated 08/04/25 @ 09:24 by Mariely Bah NP) Acute respiratory disease Flank pain Graves disease Graves' eye disease Pituitary microadenoma Psychogenic nonepileptic seizure Hyperthyroidism Essential hypertension Breast pain, left Overweight (BMI 25.0-29.9) Heavy menses Chronic constipation GERD without esophagitis Anemia HTN (hypertension) Anxiety Surgical History History of tubal ligation H/O tooth extraction (~12/10/22) H/O: Family History Paternal Aunt Breast cancer, Onset Age: 35 Maternal Aunt Breast cancer, Onset Age: 40 Other Diabetes High cholesterol Hypertension Social History Housing: House Alcohol intake: never Patient Tobacco Use Status: Never used Tobacco Tobacco use type: Cigarette e-Cigarette/Vaping Use: Never Used Second Hand Smoke Exposure: No service: No Current occupational status: unemployed Cognitive needs: No Hearing needs: No Vision needs: Yes (Glasses) Review of Systems Const All systems reviewed & are unremarkable except as noted in HPI and below Physical Exam Vital Signs: Last Vital Signs Temp 98.2 F 08/04/25 08:48 Pulse 66 08/04/25 08:48 Resp 14 08/04/25 08:48 BP 115/73 08/04/25 08:48 Pulse Ox 98 08/04/25 08:48 Oxygen Delivery Method Room Air 08/04/25 08:48 BMI result Body Mass Index 35.5 Const General: no acute distress and lethargic Nutritional Appearance: obese Orientation/consciousness: patient oriented x3 and lethargic HEENT Head: Yes normocephalic Ears: external ears normal and TM abnormal bulging bilateral and with fluid behind the TM bilateral General nose exam: Normal external nose present Face and sinus: Yes sinuses nontender Mouth: moist mucous membranes Throat: Yes uvula midline Resp Effort & Inspection: normal respiratory effort, able to speak in complete sentences, no audible wheezes and no cough Auscultation: clear to auscultation bilaterally, no crackles, no rales, no rhonchi and no wheezes Cardio Heart sounds: S1 normal heart sound present and S2 normal heart sound present Neuro General: patient oriented x3 Assessment & Plan Assessment & Plan (1) Acute respiratory disease: Code(s): J06.9 - Acute upper respiratory infection, unspecified Plan: Differential: viral/bacterial infection (pharyngitis, influenza, COVID-19), vs peripheral neuropathy or cervical radiculopathy, vs musculoskeletal strain, vs cardiovascular etiology (angina/arrhythmia), vs systemic causes. Ordered SARs Symptomatic relief: acetaminophen or NSAIDs. Rest, hydration, monitor for worsening symptoms (SOB, persistent chest pain, high fever, neurological deficits) Follow-up in 2?3 days or sooner if symptoms worsen Orders: Orders SARS-CoV2/FLU/RSV Today J06.9 - Acute upper respiratory infection, unspecified Medications: New acetaminophen 1,000 mg (2 x 500 mg) PO Q6H PRN 20 caps 0RF pain J06.9 - Acute upper respiratory infection, unspecified Coding Level of Care Code Est Pt Level 4 (15744) Diagnoses Acute respiratory disease J06.9 Time Spent (min) 20
--- OUTSIDE RECORDS SUMMARY | 2025-08-04 09:12 | XMS_ITS | Clinical Summary ---
Author Organization [facility] Address [address] [address] Phone Care Team Providers Care Machine Inspector Name Role Phone Pcp, Unknown Primary Care [...] Devices Not on file Insurance [facility] [employer] [facility] Care Teams Machine Inspector Relationship Specialty Start Date End Date Pcp, Unknown PCP - General 11/15/22 Additional Source Comments The information contained in this document represents components of the legal health record. It is not the complete legal health record.[facility]
--- OUTSIDE RECORDS SUMMARY | 2025-08-04 09:12 | XMS_ITS | Clinical Summary ---
Author Organization [facility] Address [address] [place] [address] Care Team Providers Care Elementary School Art Teacher Name Role Phone Ref, Has No [...] Annual Screening 09/11/2024 Influenza Vaccine (#1) 2025 , 06/04/2019 COVID-19 Vaccine (3 - 2024-2 6 season) 2025 08/12/2021, 04/02/2021 DTaP,Tdap,and Td Vaccines (3 - Td or Tdap) 06/25/2034 06/25/2024, 05/21/2019 Pneumococcal Vaccine: Pediatric (0-5 Years) and At-Risk Patients (6-50 Years) Aged Out 07/09/2019 No longer eligible based on patient's age to complete this topic Insurance [employer] Care Teams Elementary School Art Teacher Relationship Specialty Start Date End Date Ref, Has No Pcp Or DO NOT EDIT THIS RECORD VIA PROVIDER ON THE FLY PCP - General Draw Machine Operator 11/17/24
--- OUTSIDE RECORDS SUMMARY | 2025-08-04 09:12 | XMS_ITS | Clinical Summary ---
Author Organization [facility] ity Address [address] [place] [address] Care Team Providers Care Administrative Office Specialist Name Role Phone Jeffy Gutierrez MD [...] Depression Screening 09/11/2024 COVID-19 Vaccine (1 - 2024-2 6 season) 2025 Influenza Vaccine (#1) 2025 RSV [...] Documents on File Type Date Recorded Patient Soaking Room Operator Expl anation Health Care Decision (hx) 08/30/2023 HE ALTH CARE PROXY Health Care Decision (hx) 08/30/2023 HE ALTH CARE PROXY Health Care Decision (hx) 08/30/2023 HE ALTH CARE PROXY Care Teams Administrative Office Specialist Relationship Specialty Start Date End Date Jeffy Gutierrez MD [address] [place] [address] Dr [address] [place], [place] PCP - General 10/25/23
== END 2025-08-04 09:44 | disposition home or self-care (01) ==
PROVIDERS: Visit Provider Nurse Practitioner Family
DX: J06.9 Acute upper respiratory infection, unspecified (principal)

== ENCOUNTER 2025-08-04 08:45 | Outpatient (REF) | payer OTHER, SELFPAY ==
[2025-08-04 13:44] LABS: Resp Syncy Virus RNA Qual PCR NEGATIVE (Negative); SARS COV2 PCR INHOUSE NEGATIVE (Negative)
== END 2025-08-04 08:46 | disposition home or self-care (01) ==
LOC: HO.LAB 08:45
PROVIDERS: Nurse Practitioner Family
DX: J06.9 Acute upper respiratory infection, unspecified (principal)
CPT/HCPCS: 87637; 99212

== ENCOUNTER 2025-09-02 08:04 | Outpatient (AMB) | payer OTHER, SELFPAY ==
--- OUTSIDE RECORDS SUMMARY | 2025-09-02 08:08 | XMS_ITS | Data Portability ---
Author Organization [place] [facility] [place] [place] [address] Care Team Providers Care Textile Converter Name Role Phone [facility] Primary Care Provider Assessment Encounter Date Assessment Date Assessment LastModified by Organization Details LastModified Time 09/17/2022 09/17/2022 Overview/History : 27 YO F new to DH and new to provider She is being seen today at home Has PMH of depression, HTN, anxiety, anemia, gestational diabetes She is primarily swiss speaking and she elects to use her friend via telephone to help translate instead of formal medical swiss translation w/ our service. Of note she [...] days ago but then after I call [facility] to review records w/ her [...] present, apparently new, discussed w/ member of [facility] who reports this is new [...] visit -She reports she was seen in [facility] in Jul for this issue -She gives me permission to call [facility] to review records, I speak with staff Pharmacist Yadira Grace who reports that she has been seen numerous times between Jul, Aug and even yesterday. She has never been seen for a dental issue or facial swelling however. No mention of facial swelling in her chart from yesterday. She was educated at that time to f/u [facility] PCP for URI sxs. -Today now w/ [...] Review completed [facility] [address], [place], [address], [place] [facility] 09/17/2022 14:01:37 section completed [facility] Tomas [address], [place], [address], [place] [facility] 09/17/2022 12:55:35 Imaging Results None recorded. Procedure Notes None recorded. Medical Equipment None Reported. Allergies Allergen ID Allergen Name Allergen Category Reaction Reaction Severity Criticality Documentation Date Start Date Code Code System Note Provider Name and Address Organization Details Recorded Time [id number] Augmentin medicatio n Not available Not available Not available 09/17/2022 17554 2 RxNorm REVA Michelle [address], [place], [address], [place] [facility] 3 12:48:53 396281 nifedipin e medicatio n Not available Not available Not available 09/17/2022 7417 RxNorm RE[facility] Michelle [address], [place], [address], [place] [facility] 3 12:48:58 836231 Mucinex medicatio n Not available Not available Not available 09/17/2022 68397 7 RxNorm REVA Michelle [address], [place], [address], [place] [facility] 3 13:06:54 518526 cyclobenz aprine medicatio n Not available Not available Not available 09/17/2022 08252 RxNorm REVA Michelle [address], [place], [address], [place] [facility] [...] Not Available Not Available Not Available FreeStyle [place] Lite kit PLEASE CHECK GLUCOSE LEVEL FOR HYPOGLYCE BEN 09/17 completed Not Available Not Available Not Available Vitals Date Recorded Heart rate Oxygen saturation Body temperature Respiratory rate Systolic And Diastolic Provider Name and Address Organization Details Last Updated DateTime 3 62 /min 100 % 98.1 [degF] 16 /min 116/68 mm[Hg] Not Available [facility] 13:10:43 Social History Question Answer Notes LastModified by Organizat ion Details LastModified Time Tobacco Smoking Status Never Smoker RE[facility] Tomas [address] [place] [address], [address], [place] [facility] 09/17/2022 12:55:47 Does This Patient Have A PCP? Yes [email or web address] Information not available 09/17/2022 Has The Patient Seen Their PCP In The Past 6 Months? Yes [email or web address] Information not available 09/17/2022 Sex: Unknown Functional Status Question Answer Note LastModified by Organizat ion Details LastModified Time Do you use any [...] History Condition Response Coronary Artery Disease N Parkinson's Disease N COPD N Depression Y Hypothyroidism N A-fib N Diabetes N CHF N Cancer N Dementia N Stroke N Asthma N High Cholesterol N Rheumatoid Arthritis N Pulmonary Embolism N Hypertension Y Osteoporosis N Kidney Disease N Gynecological HistoryNo gynecological history recorded. Obstetrics History GPAL:G 0 P 0 0 0 0 Past Encounters Encounter ID Performer Location Encounter Start Date Encounter Closed Date Diagnosis/Indication Diagnosis SNOMED-CT Code Diagnosis ICD10 Code Diagnosis IMO Codes Diagnosis Note [id number] REVA Coy [facility] [place] [address] 09/17/2022 12:41:07 09/17/2022 14:58:27 Left parotid gland swelling [id number] K11.9 Health Concerns Section Related Observation LastModified by Organization Detai ls LastModified Time None Recorded Concern Status LastModified by Organization Details LastModified Time None Recorded Advance Directives Directive None Recorded Payers Insurance Date Sequence Insurance Name Policy Number Policy Gaona Covered Member ID Gaona Member ID Guarantor Name 09/17/2022 1 [facility] (MEDICAID HMO) [id number] Linoshka Omar [id number] Linoshka Omar 09/17/2022 1 *SELF PAY* Linoshka Omar [id number] Linoshka Omar 09/17/2022 1 [facility] (MEDICAID O) [id number] Linoshka Omar [id number] Linoshka Omar 09/17/2022 1 [facility] (MEDICAID O) [id number] Linoshka Omar [id number] Linoshka Omar 09/17/2022 1 [facility] (MEDICAID O) [id number] Linoshka Omar [id number] Linoshka Omar Notes Date Note Type Note Provider Name and Address Organization Details Recorded Time 09/17/2022 text/html 27 YO F new to and new to providerShe is being seen today [facility] of depression, HTN, anxiety, anemia, gestational diabetesIlda is primarily swiss speaking and she elects to use her friend via telephone to help translate instead of formal medical swiss translation w/ our service.Of note she and [...] days ago but then after I call [facility] to review records w/ her [...] concerns today. [facility]omas [address], [place], [address], [place] [facility] 09/17/2022 14:18:02 OBGyn Episode No OBEpisode recorded.
--- OUTSIDE RECORDS SUMMARY | 2025-09-02 08:08 | XMS_ITS | Clinical Summary ---
Author Organization [facility] ity Address [address] [place] [address] Care Team Providers Care Wolf Hunter Name Role Phone Jeffy Gutierrez MD Primary Care Provider [phone] Surgical History Surgery Date Site/Laterality Comments SECTION 2016 PROCEDURE: HISTORICAL DELIVERY Medical History Medical History [...] Documents on File Type Date Recorded Patient Car Manager Expl anation Health Care Decision (hx) 08/30/2023 HE ALTH CARE PROXY Health Care Decision (hx) 08/30/2023 HE ALTH CARE PROXY Health Care Decision (hx) 08/30/2023 HE ALTH CARE PROXY Care Teams Wolf Hunter Relationship Specialty Start Date End Date Jeffy Gutierrez MD [address] [place] [address] Dr [address] [place], [place] PCP - General 10/25/23
--- OUTSIDE RECORDS SUMMARY | 2025-09-02 08:08 | XMS_ITS | Clinical Summary ---
Author Organization [facility] Address [address] [place] [address] Care Team Providers Care Crime Laboratory Analyst Name Role Phone Ref, Hasnopcp Primary Care Provider Unavailabl e Allergies Active [...] to complete this topic Insurance [place] [phone] Care Teams Crime Laboratory Analyst Relationship Specialty Start Date End Date Ref, Hasnopcp DO NOT EDIT THIS RECORD VIA PROVIDER ON THE FLY PCP - General Service Delivery Analyst 11/17/24
--- OUTSIDE RECORDS SUMMARY | 2025-09-02 08:08 | XMS_ITS | Clinical Summary ---
Author Organization [facility] Address [address] [address] Phone Care Team Providers Care Saw Offbearer Name Role Phone Pcp, Unknown Primary Care [...] file Medical Devices Not on file Insurance [facility] Memento [facility] Care Teams Saw Offbearer Relationship Specialty Start Date End Date Pcp, Unknown PCP - General 11/15/22 Additional Source Comments The information contained in this document represents components of the legal health record. It is not the complete legal health record.[facility]
[2025-09-02 08:12] VITALS: BP 110/62; PULSE 70; BMI 36.4
--- NOTE | 2025-09-02 08:12 | A.OFFVIS_ITS ---
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: Yes Lime Kiln Worker Helper Language: Sheet Metal Operator Name: [email or web address]/georgian Accompanied by: Self / Same As Patient Allergies morphine Allergy (Severe, Verified 08/04/25 08:56) Vomiting chlorthalidone Allergy (Intermediate, Verified 08/04/25 08:56) Chest Pain glucagon Allergy (Intermediate, Verified 08/04/25 08:56) Unknown guaifenesin (From Mucinex) Allergy (Intermediate, Verified 08/04/25 08:56) Unknown latex Allergy (Intermediate, Verified 08/04/25 08:56) Rash amoxicillin Allergy (Mild, Verified 08/04/25 08:56) Rash clavulanic acid (From Augmentin) Allergy (Unknown, Verified 08/04/25 08:56) Unknown cyclobenzaprine (From Flexeril) Allergy (Verified 08/04/25 08:56) Palpitations escitalopram Allergy (Verified 08/04/25 08:56) Palpitations hydralazine Allergy (Verified 08/04/25 08:56) Nausea and Vomiting lorazepam (From Ativan) Allergy (Verified 08/04/25 08:56) Palpitations nifedipine Allergy (Intermediate, Uncoded 08/04/25 08:56) Unknown Medication List - Last Reconciled 09/02/25 by Vlad Palomares MD acetaminophen 1,000 mg (2 x 500 mg) PO Q6H PRN amlodipine 10 mg PO DAILY 90 days ferrous sulfate Take 5ml by mouth two times a day levothyroxine (Levoxyl) 25 mcg PO DAILY miscellaneous medical supply (Blood Pressure Cuff) As directed propranolol 15 mg (1.5 x 10 mg) PO BID 90 days HPI Comments Details: Nicole returns for follow up. Previously seen in consultation regarding palpitations and other complaints. She does not have any prior history of cardiac issues. She has hyperthyroidism listed in her history. Not clear if it is an active issue or not. Seems to be on propranolol. She states that she randomly gets palpitations. She can feel the heart fluttering at daytime or nighttime and in fact no specific patterns. Random chest pains. Has undergone an echocardiogram and 30 day monitor. No new issues since last seen. [facility] Medical History Acute respiratory disease Flank pain Graves disease Graves' eye disease Pituitary microadenoma Psychogenic nonepileptic seizure Hyperthyroidism Essential hypertension Breast pain, left Overweight (BMI 25.0-29.9) Heavy menses Chronic constipation GERD without esophagitis Anemia HTN (hypertension) Anxiety Surgical History History of tubal ligation H/O tooth extraction (~12/10/22) H/O: Family History Paternal Aunt Breast cancer, Onset Age: 35 Maternal Aunt Breast cancer, Onset Age: 40 Other Diabetes High cholesterol Hypertension Social History Housing: House Alcohol intake: never Patient Tobacco Use Status: Never used Tobacco Tobacco use type: Cigarette e-Cigarette/Vaping Use: Never Used Second Hand Smoke Exposure: No service: No Current occupational status: unemployed Cognitive needs: No Hearing needs: No Vision needs: Yes (Glasses) Review of Systems Const Denies chills, Denies fatigue, Denies fever(s), Denies frequent falls, Denies weakness, Denies weight gain and Denies weight loss ENT Denies dizziness Card Denies chest pain, Denies leg edema, Denies lightheadedness, Denies palpitations, Denies dyspnea and Denies dyspnea on exertion Resp Denies cough, Denies dyspnea and Denies dyspnea on exertion GI Denies hematochezia Musc Denies abnormal gait, Denies muscle weakness, Denies numbness, Denies radiating pain into limb and Denies tingling Neuro Denies abnormal gait, Denies dizziness, Denies frequent falls, Denies numbness, Denies tingling and Denies weakness Endo Denies fatigue and Denies palpitations Physical Exam Vital Signs: Last Vital Signs Pulse 70 09/02/25 08:12 BP 110/62 09/02/25 08:12 BMI result Body Mass Index 36.4 Const General: comfortable and no acute distress Orientation/consciousness: patient oriented x3 HEENT Other: Unremarkable Head: Yes normal to inspection Neck Neck: Yes normal visual inspection Chest Chest palpation & inspection: normal inspection of the chest Resp Auscultation: clear to auscultation bilaterally Cardio Palpation: normal PMI Heart sounds: S1 normal heart sound present, S2 normal heart sound present, no gallops, Murmur heart sound present systolic II/ and at the right sternal border and no rubs GI Palpation (GI): Soft to palpation Back/Spine/Pelvis Other: unremarkable Skin General skin exam: no rashes or lesions noted Neuro General: patient oriented x3 Extrem General: Yes normal to inspection Psych Mental Status: mental status grossly normal Assessment & Plan Assessment & Plan (1) Heart palpitations: Code(s): R00.2 - Palpitations Category: Medical (2) Atypical chest pain: Code(s): R07.89 - Other chest pain Category: Medical Plan On examination, she has a short systolic murmur in the aortic area. EKG shows possible LVH versus normal variant. High sensitivity troponins have been checked numerous times in the past few years and they have all been within normal limits. In the echocardiogram, LVEF 60-65%. Normal diastolic filling. No significant valvular findings. In the 30 day monitor, sinus rhythm with mild sinus tachycardia. Overall, based on the above workup, no clear cardiac etiology for her symptoms. Mainly reassurance. Appropriate management of her thyroid issues. If symptoms persist or worsen, advised to contact us. She understands that. Discussed using belting and webbing inspector. Coding Level of Care Code Est Pt Level 3 (78023) Diagnoses Heart palpitations R00.2 Atypical chest pain R07.89
== END 2025-09-02 08:24 | disposition home or self-care (01) ==
LOC: HO.HCS 08:05
PROVIDERS: PCP Internal Medicine; Visit Provider Internal Medicine
DX: R00.2 Palpitations (principal); R07.89 Other chest pain
CPT/HCPCS: 99213

== ENCOUNTER → 2025-09-02 08:04 | Outpatient (BNVA) | payer OTHER, SELFPAY | PROVIDERS: PCP Internal Medicine; Visit Provider Internal Medicine | DX: R00.2 Palpitations (principal); R07.89 Other chest pain; R00.0 Tachycardia, unspecified; R01.1 Cardiac murmur, unspecified; E05.90 Thyrotoxicosis, unspecified without thyrotoxic crisis or storm | CPT/HCPCS: 99212 ==